=== PATIENT | female | born 1940 | race Caucasian/White ===

== ENCOUNTER 2019-07-04 22:25 | Emergency (ER) | payer MEDICARE, MEDICAID, SELFPAY ==
--- NOTE | ~2019-07-04 | XR_ITS ---
EXAMINATION: XR chest 2V DATE: 07/04/2019 23:23 INDICATION: Chronic cough and congestion TECHNIQUE: frontal and lateral views of the chest were obtained. COMPARISON: Chest radiograph dated 04/07/19 FINDINGS: Patient is rotated towards the right which exaggerates eventration of the anterior right hemidiaphrag m. The lungs remain clear with no focal airspace opacities, pulmonary edema, pleural effusion or pneu mothorax. Couple calcified nodules in the left lower lung zone and calcified left hilar lymph nodes c onsistent with old granulomatous disease. Mild cardiomegaly. Multiple chronic compression fractures i n the thoracic and upper lumbar spine with change of prior L1 vertebroplasty. IMPRESSION: 1. No acute cardiopulmonary disease. 2. Mild cardiomegaly. Reviewed, dictated and finalized at location A. T REPORTER
[2019-07-04 22:27] VITALS: BP 170/82; PULSE 73; RESP 18; TEMP 36.4; O2SAT 100
--- NOTE | 2019-07-04 22:31 | ED.URI ---
HPI - URI/Sore Throat General Chief Complaint: Upper Respiratory Infection Stated Complaint: acid reflux cough Time Seen by Provider: 07/04/19 22:30 Source: patient, family and RN notes reviewed Mode of arrival: EMS Limitations: no limitations History of Present Illness HPI Narrative: Pt is an 78 y/o female who presents to the ED, via EMS from [facility], with c/o acid reflux and a cough that began a few days ago. Per spouse, pt believes she is having a UTI. t states that she can feel acid coming up. Pt also reports chest heaviness pain, nausea, and an episode of vomiting that contained phlegm, but denies fever, chills, diaphoresis, abdominal pain, and diarrhea. Pt is taking ASA [address] [facility] MD elicited complaint: cough and other (acid reflux) Onset (ago): day(s) (few) Consistency: constant Associated symptoms: chest pain (heaviness), nausea and vomiting (an episode, contained phlegm) Related Data Home Medications Medication Instructions Recorded Confirmed Entresto 0.5 tablet PO BID 03/20/19 04/06/19 aspirin 81 mg PO DAILY 03/20/19 04/06/19 atorvastatin 10 mg PO DAILY 03/20/19 04/06/19 benzonatate 200 mg PO TID PRN 03/20/19 04/06/19 benztropine 0.5 mg PO DAILY 03/20/19 04/06/19 cetirizine 10 mg PO DAILY 03/20/19 04/06/19 cholecalciferol (vitamin D3) 50,000 unit PO WEEKLY 03/20/19 04/06/19 citalopram 15 mg DAILY 03/20/19 04/06/19 cyanocobalamin (vitamin B-12) 1,000 mcg PO DAILY 03/20/19 04/06/19 donepezil 10 mg PO HS 03/20/19 04/06/19 fludrocortisone 0.1 mg PO DAILY 03/20/19 04/06/19 furosemide 40 mg PO DAILY 03/20/19 04/06/19 lamotrigine 100 mg PO HS 03/20/19 04/06/19 magnesium oxide 400 mg PO DAILY 03/20/19 04/06/19 omeprazole 20 mg PO BID 03/20/19 04/06/19 polyethylene glycol 3350 [Miralax] 17 g PO DAILY 03/20/19 04/06/19 potassium chloride 20 meq PO BID 03/20/19 04/06/19 Allergies Allergy/AdvReac Type Severity Reaction Status Date / Time sertraline Allergy Severe Unknown Verified 04/06/19 14:59 hydromorphone Allergy Intermediate Unknown Verified 04/06/19 14:59 Review of Systems Review of Systems: All systems reviewed & are unremarkable except as noted in HPI and below Constitutional: Constitutional: Denies chills and Denies fever(s) Cardiovascular: Cardiovascular: Reports chest pain (heaviness) and Denies diaphoresis Respiratory: Respiratory: Reports cough Gastrointestinal: Gastrointestinal: Denies abdominal pain, Denies diarrhea, Reports nausea, Reports vomiting (one episode, contained phlegm) and Reports other (acid reflux) [facility] Past Medical History Medical History (Updated 07/05/19 @ 00:51 by Nicole Lr MD) Alzheimers disease Anxiety CHF (congestive heart failure) Systolic congestive heart failure with echocardiogram March 2019 demonstrating mild left ventricular enlargement, severe global left ventricular systolic dysfunction with EF of 30-35%, mild right ventricular systolic dysfunction, moderate left atrial enlargement, moderate mitral valve regurgitation, moderate pulmonary hypertension, elevated right atrial pressures Chronic anemia Dementia Depression DNR (do not resuscitate) Essential hypertension Frequent urinary tract infections With history of ESBL E coli infection March 2018 GERD (gastroesophageal reflux disease) History of CVA (cerebrovascular accident) History of TIAs Hyperlipidemia Orthostatic hypotension 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 Patient resides at [facility]. She has a state IDPA form on the [facility]
--- NOTE | 2019-07-04 22:39 | ECG_ITS ---
Measurements Intervals [place] Rate: 79 P: -18 [place]: 131 QRS: 5 QRSD: 139 T: 144 QT: 426 QTc: 490 Interpretive Statements SINUS RHYTHM LEFT BUNDLE BRANCH BLOCK BASELINE ARTIFACT- I, II, AVR, AVL, AVF ABNORMAL ECG Electronically Signed On 07-05-2019 7:08:56 ENGINE TESTER by Vladimir Sosa D.O.
[2019-07-04 22:50] VITALS: PULSE 74
[2019-07-04] MEDS: IPRATROPIUM BR 0.02% INH SOLN 0.5 MG/2.5 ML VIAL INHALATION (22:54)
[2019-07-04] MEDS: ALBUTEROL SULFATE NEB 2.5 MG/0.5 ML INH 5 MG INHALATION (22:54)
[2019-07-04 22:55] VITALS: PULSE 70; RESP 20
[2019-07-04 23:03] VITALS: PULSE 79; RESP 20
[2019-07-04 23:13] LABS: Basophils Percent Auto 0.8 % (0.2-1.2); Eosinophils Absolute Auto 0.3 K/mm3 (0-0.3); Eosinophils Percent Auto 5.9 % (0-4.4); Hematocrit 23.6 % (37.0-47.0); Hemoglobin 7.3 g/dL (12.0-15.0); Immature Granulocyte Absolute 0.01 K/mm3 (0.00-0.031); Immature Granulocyte Percent A 0.2 % (0-0.5); Lymphocytes Absolute Auto 2.47 K/mm3 (0.9-3.2); Lymphocytes Percent Auto 46.7 % (18.3-44.2); Mean Corpuscular HGB Conc 30.9 g/dl (32-36); Mean Corpuscular Hemoglobin 26.5 pg (26-34); Mean Corpuscular Volume 85.8 fl (80-100); Mean Platelet Volume 9.3 fl (7.4-10.4); Monocytes Absolute Auto 0.4 K/mm3 (0.1-0.6); Monocytes Percent Auto 8.1 % (2.6-8.5); Neutrophils Percent Auto 38.3 % (45.5-73.1); Platelet Count Result 270 k/mm3 (150-375); Red Blood Count 2.75 M/mm3 (4.2-5.4); Red Cell Distribution Width 15.5 % (11.5-14.5); White Blood Count 5.3 K/mm3 (4.5-10.0)
[2019-07-04] MEDS: MAG HYDROX/AL HYDROX/SIMETH 30 ML UDC PO (23:13)
[2019-07-04 23:34] LABS: Alanine Aminotransferase 17 U/L (4-35); Albumin Level 3.8 g/dL (3.5-5.1); Alkaline Phosphatase 77 U/L (38-126); Aspartate Amino Transferase 28 U/L (14-36); Bilirubin,Total 0.3 mg/dL (0.2-1.3); Blood Urea Nitrogen 16 mg/dL (7-17); Calcium 9.2 mg/dL (8.4-10.2); Carbon Dioxide 22 mmol/L (22-30); Chloride 103 mmol/L (98-107); Estimated CRCL calculation 46 ml/min; Estimated Glomerular Filt Rate > 60; Glucose 117 mg/dL (65-105); Potassium 4.3 mmol/L (3.4-5.0); Sodium 140 mmol/L (137-145)
[2019-07-04 23:46] LABS: NT Pro B Type Natriuretic Pept 457 PG/ML (5-100); Troponin I < 0.012 ng/mL (0.000-0.034)
[2019-07-04 23:50] LABS: Add Urine Microscopic? NO; Appearance Urine Clear (Clear); Bilirubin Urine Negative (Negative); Blood Urine Negative (Negative); Color Urine Colorless (Yellow); Glucose Urine UA Negative (Negative); Ketones Urine Negative (Negative); Leukocyte Esterase Ur Negative LEU/UL (Negative); Nitrate Urine Negative (Negative); Protein Urine Negative (Negative); Specific Grav Ur 1.006 (1.001-1.035); Urobilinogen Urine Negative mg/dL (<2.0)
[2019-07-04 23:59] VITALS: BP 130/51; PULSE 81; RESP 20; O2SAT 100
[2019-07-05] MEDS: PANTOPRAZOLE SODIUM IV 40 MG VIAL IV PUSH (00:47)
[2019-07-05 01:09] VITALS: BP 122/70; PULSE 78; RESP 18; O2SAT 99
[2019-07-05 02:11] LABS: Folic Acid 11.6 ng/mL (2.76->20)
== END 2019-07-05 01:12 ==
PROVIDERS: Emergency Provider Emergency Medicine; PCP Internal Medicine
DX: K21.9 Gastro-esophageal reflux disease without esophagitis (principal); D64.9 Anemia, unspecified; R05 Cough; I11.0 Hypertensive heart disease with heart failure; I50.20 Unspecified systolic (congestive) heart failure; I48.0 Paroxysmal atrial fibrillation; G30.9 Alzheimer's disease, unspecified; F02.80 Dementia in other diseases classified elsewhere, unspecified severity, without behavioral disturbance, psychotic disturbance, mood disturbance, and anxiety; Z86.73 Personal history of transient ischemic attack (TIA), and cerebral infarction without residual deficits; Z87.891 Personal history of nicotine dependence
CPT/HCPCS: 36415; 71046; 80053; 81003; 82607; 82746; 83880; 84484; 85025; 87804; 93005; 94640; 96374; 99284; A9270; C9113

== ENCOUNTER 2019-09-23 20:09 | Observation (INO) | payer MEDICARE, MEDICAID, SELFPAY ==
--- NOTE | ~2019-09-23 | CT_ITS ---
EXAMINATION: CT brain wo con INDICATION: Fall, possible head injury COMPARISON: 04/06/2019 TECHNIQUE: Standard unenhanced head CT. The dose-length product (DLP) was 605.33 mGy-cm. The mA was a djusted according to patient size. Iterative reconstruction technique was employed. FINDINGS: There is no acute intraparenchymal hemorrhage. No evidence of mass lesion. No evidence of a cute infarction. There are areas of prior infarction in the left frontal and parietal lobes as well a s the bilateral cerebellar hemispheres. There is moderate periventricular and subcortical hypodensity probably related to small vessel ischemic disease. There is moderate prominence of the sulci and jean-pierre tricles related to cerebral atrophy. Intracranial calcified cerebral atherosclerosis is noted. There are no extra-axial collections. There is no mass effect or midline shift. The orbits and soft tissues are unremarkable. The visualized sinuses and mastoid air cells are well aerated. IMPRESSION: 1. Areas of prior infarction without acute intracranial abnormality. 2. Age related findings. Reviewed, dictated and finalized at location A.
--- NOTE | ~2019-09-23 | CT_ITS ---
EXAMINATION: CT facial & cervical spine wo DATE: 09/23/2019 22:03 INDICATION: Facial and neck pain after fall TECHNIQUE: Computed tomography (CT) of the maxillofacial region and cervical spine was performed with out intravenous contrast. The dose-length product (DLP) was 150.37 mGy-cm. Automated exposure control and iterative reconstruction technique were employed. COMPARISON: 09/16/2018 FINDINGS: MAXILLOFACIAL CT: There is no acute facial bone fracture. The soft tissues are unremarkable. There is mild mucosal thic kening of the paranasal sinuses. CERVICAL SPINE CT: There are 2 mm of stable anterolisthesis of C3 on C4 and C4 on C5. There is chronic severe loss of in tervertebral disc space height at C4-5 and C5-6. Mild loss of disc space height is seen elsewhere in the cervical spine. The odontoid is intact. There is moderate to severe multilevel facet and uncovert ebral joint osteoarthritis. The prevertebral soft tissues are normal. IMPRESSION: 1. Moderate to severe cervical spondylosis without acute findings or significant interval change. 2. No facial bone fracture. Reviewed, dictated and finalized at location A. IMPRESSION: 1. Moderate to severe cervical spondylosis without acute findings or significan t interval change. 2. No facial bone fracture.
--- NOTE | ~2019-09-23 | XR_ITS ---
MODIFIED ESOPHAGRAM HISTORY: Dysphagia. TECHNIQUE: Modified barium esophagram was performed on 09/25/2019. I administered fluoroscopy and perf ormed the exam with speech pathologist. Patient was seated for lateral fluoroscopic imaging for john stion of thin liquids, pudding, solids and quantified amounts, followed by thin liquids in uncontroll ed amounts. This was recorded on tape. A single fluoroscopic spot image was also recorded. The DAP fo r this procedure was 1.34 Gycm2. The amount of fluoroscopy time used during this procedure was 2.1 mi nutes. FINDINGS: Oral stage: Adequate function. Pharyngeal stage: Adequate function. Cervical/esophageal stage: Adequate function. IMPRESSION: Patient tolerated regular consistency oral feedings in the upright position. Please rajni elate with speech pathologist findings and specific feeding recommendations. Reviewed, dictated and finalized at location A. IMPRESSION: Patient tolerated regular consistency oral feedings in the upright position. Please correlate with speech pathologist findings and specific feedi ng recommendations.
[2019-09-23 20:19] VITALS: BP 94/63; PULSE 73; RESP 25; TEMP 36.4; O2SAT 100
--- NOTE | 2019-09-23 20:24 | ECG_ITS ---
Measurements Intervals [place] Rate: 66 P: -13 [place]: 140 QRS: 41 QRSD: 148 T: 201 QT: 446 QTc: 468 Interpretive Statements SINUS RHYTHM LEFT BUNDLE BRANCH BLOCK BASELINE ARTIFACT- I, II, III, AVL, AVF ABNORMAL ECG Electronically Signed On 09-24-2019 7:06:20 CDT by Vladimir Sosa D.O.
--- NOTE | 2019-09-23 20:25 | ED.FALL ---
HPI - Fall General Chief Complaint: Fall Stated Complaint: fall/ jaw pain Time Seen by Provider: 09/23/19 20:14 Source: RN notes reviewed History of Present Illness HPI Narrative: Patient presents emergency department from home via EMS for fall. Patient states she was seen on the toilet when she fell forward and believes she had a syncopal episode. Patient states she believes she struck her head and her face and notes jaw pain since the fall. Patient denies any recent illness but does note some sinus drainage. Denies any fevers or chills chest pain shortness of breath or any other symptoms Related Data Home Medications Medication Instructions Recorded Confirmed Entresto 0.5 tablet PO BID 03/20/19 04/06/19 aspirin 81 mg PO DAILY 03/20/19 04/06/19 atorvastatin 10 mg PO DAILY 03/20/19 04/06/19 benztropine 0.5 mg PO DAILY 03/20/19 04/06/19 cetirizine 10 mg PO DAILY 03/20/19 04/06/19 cholecalciferol (vitamin D3) 50,000 unit PO WEEKLY 03/20/19 04/06/19 citalopram 15 mg DAILY 03/20/19 04/06/19 cyanocobalamin (vitamin B-12) 1,000 mcg PO DAILY 03/20/19 04/06/19 donepezil 10 mg PO HS 03/20/19 04/06/19 fludrocortisone 0.1 mg PO DAILY 03/20/19 04/06/19 furosemide 40 mg PO DAILY 03/20/19 04/06/19 lamotrigine 100 mg PO HS 03/20/19 04/06/19 magnesium oxide 400 mg PO DAILY 03/20/19 04/06/19 omeprazole 20 mg PO BID 03/20/19 04/06/19 polyethylene glycol 3350 [Miralax] 17 g PO DAILY 03/20/19 04/06/19 potassium chloride 20 meq PO BID 03/20/19 04/06/19 Allergies Allergy/AdvReac Type Severity Reaction Status Date / Time sertraline Allergy Severe Unknown Verified 04/06/19 14:59 hydromorphone Allergy Intermediate Unknown Verified 04/06/19 14:59 Review of Systems Review of Systems: Narrative: Gen.: Denies fevers or chills Eyes: Denies eye pain or visual change ENT: Reports congestion and jaw pain reports a possible syncopal episode Respiratory: Denies shortness of breath or cough CV: Denies chest pain or palpitations GI: Denies abdominal pain nausea, emesis or diarrhea Musculoskeletal: Denies back pain or muscle pain Neuro: Denies numbness, tingling, weakness or focal weakness Skin: Denies rash Except as documented, all other systems reviewed and negative [facility] Past Medical History Medical History Alzheimers disease Anxiety CHF (congestive heart failure) Systolic congestive heart failure with echocardiogram March 2019 demonstrating mild left ventricular enlargement, severe global left ventricular systolic dysfunction with EF of 30-35%, mild right ventricular systolic dysfunction, moderate left atrial enlargement, moderate mitral valve regurgitation, moderate pulmonary hypertension, elevated right atrial pressures Chronic anemia Dementia Depression DNR (do not resuscitate) Essential hypertension Frequent urinary tract infections With history of ESBL E coli infection March 2018 GERD (gastroesophageal reflux disease) History of CVA (cerebrovascular accident) History of TIAs Hyperlipidemia Orthostatic hypotension 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 Patient resides at [facility]. She has a state IDPA form on the chart and indicates her code status is DNR. Primary care physician is Dr. Charanjit Ace. Smoking packs per day: 2 Smoking cigarettes per day: 40.0 Years smoked: 10 Smoking pack-years: 20.00 Smoking status: Former smoker Tobacco type: cigarettes Smoking end date: 05/08/79 Additional smoking assessment comments: former husb
[2019-09-23 20:49] LABS: Basophils Percent Auto 0.4 % (0.2-1.2); Eosinophils Absolute Auto 0.3 K/mm3 (0-0.3); Eosinophils Percent Auto 4.3 % (0-4.4); Hemoglobin 13.3 g/dL (12.0-15.0); Immature Granulocyte Absolute 0.02 K/mm3 (0.00-0.031); Immature Granulocyte Percent A 0.3 % (0-0.5); Lymphocytes Absolute Auto 2.35 K/mm3 (0.9-3.2); Lymphocytes Percent Auto 30.4 % (18.3-44.2); Mean Corpuscular HGB Conc 32.4 g/dl (32-36); Mean Corpuscular Hemoglobin 30.7 pg (26-34); Mean Corpuscular Volume 94.7 fl (80-100); Mean Platelet Volume 9.2 fl (7.4-10.4); Monocytes Absolute Auto 0.4 K/mm3 (0.1-0.6); Monocytes Percent Auto 5.2 % (2.6-8.5); Neutrophils Absolute Auto 4.6 K/mm3 (1.3-6.7); Neutrophils Percent Auto 59.4 % (45.5-73.1); Platelet Count Result 238 k/mm3 (150-375); Red Blood Count 4.33 M/mm3 (4.2-5.4); Red Cell Distribution Width 16.4 % (11.5-14.5); White Blood Count 7.7 K/mm3 (4.5-10.0)
[2019-09-23 20:59] LABS: INR 0.9; Prothrombin Time 11.7 Seconds (11.1-14.7)
[2019-09-23 21:00] LABS: Partial Thromboplastin Time 25.9 SECONDS (22.3-36.8)
[2019-09-23 21:03] LABS: Alanine Aminotransferase 14 U/L (4-35); Albumin Level 4.5 g/dL (3.5-5.1); Alkaline Phosphatase 61 U/L (38-126); Aspartate Amino Transferase 26 U/L (14-36); Bilirubin,Total 0.4 mg/dL (0.2-1.3); Blood Urea Nitrogen 17 mg/dL (7-17); Calcium 9.8 mg/dL (8.4-10.2); Carbon Dioxide 28 mmol/L (22-30); Chloride 102 mmol/L (98-107); Estimated CRCL calculation 33 ml/min; Estimated Glomerular Filt Rate 53; Glucose 135 mg/dL (65-105); Potassium 3.5 mmol/L (3.4-5.0); Sodium 139 mmol/L (137-145)
[2019-09-23 21:14] LABS: Troponin I < 0.012 ng/mL (0.000-0.034)
[2019-09-23 21:20] VITALS: BP 127/67; BP 129/69; PULSE 73
[2019-09-23 21:22] VITALS: BP 108/69; PULSE 80
[2019-09-23] MEDS: SODIUM CHLORIDE 0.9% IV 1,000 ML 999 ML IV CONT (21:38)
[2019-09-23 21:42] VITALS: BP 143/67; PULSE 73; RESP 23; TEMP 36.5; O2SAT 100
[2019-09-23 22:40] LABS: Add Urine Microscopic? YES; Appearance Urine Clear (Clear); Bilirubin Urine Negative (Negative); Blood Urine Negative (Negative); Color Urine Yellow (Yellow); Glucose Urine UA Negative (Negative); Hyaline Casts Urine 30-49 /lpf; Ketones Urine Negative (Negative); Leukocyte Esterase Ur Negative LEU/UL (Negative); Mucus Urine Rare /lpf; Nitrate Urine Negative (Negative); Protein Urine 1+ mg/dL (Negative); RBC Urine 0-2 /hpf (0-2); Specific Grav Ur 1.017 (1.001-1.035); Squamous Epithelial Cell Urine Rare /hpf (Few); Urobilinogen Urine Negative mg/dL (<2.0); WBC Urine 0-3 /hpf
[2019-09-23 23:07] VITALS: BP 166/135; PULSE 66; RESP 21; TEMP 36.6; O2SAT 100
[2019-09-24] VITALS (14 sets, daily range): BP systolic 133–184; BP diastolic 53–96; PULSE 57–91; RESP 14–18; TEMP 36.1–36.9; O2SAT 99–100; BMI 25.7
--- NOTE | 2019-09-24 02:33 | ADMGEN ---
This patient, Kenton Wilhelm, was admitted to Medical Room 245. Patient/family oriented to hospital policies and general routines including ID bracelet, bed and alarms, visiting hours, pain management, procedures, bathroom and other care routines, personal items, smoking policy, room service/diet, and visiting hours. Valuables list has been completed. Information on how to activate the Rapid Response Team has been discussed. Patient/Family are encouraged to report perceived risks to care and to ask questions if they do not understand what they are told or what they should do.
[2019-09-24 03:25] LABS: Troponin I < 0.012 ng/mL (0.000-0.034)
[2019-09-24 09:34] LABS: Basophils Percent Auto 0.3 % (0.2-1.2); Eosinophils Absolute Auto 0.2 K/mm3 (0-0.3); Eosinophils Percent Auto 1.9 % (0-4.4); Hematocrit 36.2 % (37.0-47.0); Immature Granulocyte Absolute 0.02 K/mm3 (0.00-0.031); Immature Granulocyte Percent A 0.3 % (0-0.5); Lymphocytes Absolute Auto 2.06 K/mm3 (0.9-3.2); Lymphocytes Percent Auto 26.1 % (18.3-44.2); Mean Corpuscular HGB Conc 33.1 g/dl (32-36); Mean Corpuscular Hemoglobin 31.3 pg (26-34); Mean Corpuscular Volume 94.5 fl (80-100); Mean Platelet Volume 9.3 fl (7.4-10.4); Monocytes Absolute Auto 0.6 K/mm3 (0.1-0.6); Neutrophils Absolute Auto 5.1 K/mm3 (1.3-6.7); Neutrophils Percent Auto 64.4 % (45.5-73.1); Platelet Count Result 224 k/mm3 (150-375); Red Blood Count 3.83 M/mm3 (4.2-5.4); Red Cell Distribution Width 16.7 % (11.5-14.5); White Blood Count 7.9 K/mm3 (4.5-10.0)
[2019-09-24 09:46] LABS: Alanine Aminotransferase 13 U/L (4-35); Albumin Level 4.1 g/dL (3.5-5.1); Alkaline Phosphatase 54 U/L (38-126); Aspartate Amino Transferase 24 U/L (14-36); Bilirubin,Total 0.4 mg/dL (0.2-1.3); Blood Urea Nitrogen 15 mg/dL (7-17); Calcium 9.1 mg/dL (8.4-10.2); Carbon Dioxide 23 mmol/L (22-30); Chloride 108 mmol/L (98-107); Estimated CRCL calculation 40 ml/min; Estimated Glomerular Filt Rate > 60; Glucose 87 mg/dL (65-105); Magnesium 1.9 mg/dL (1.6-2.3); Phosphorus 3.6 mg/dL (2.5-4.5); Potassium 3.7 mmol/L (3.4-5.0); Sodium 139 mmol/L (137-145)
--- NOTE | 2019-09-24 10:37 | PM.IMHP ---
H&P: HPI History of Present Illness Chief complaint: Fall Narrative: Date of Service 09/24/19 1015 The supervising physician for this history and physical is Dr Carl Peterson. Ms. Wilhelm is an 78yo F with history of previous CVA, paroxysmal atrial fibrillation, orthostatic hypotension, chronic diastolic congestive heart failure, anxiety, schizoaffective disorder, and seizure disorder who presented to the ED from [facility] for evaluation after a fall. The patient recalls sitting on the toilet yesterday and tells me she began to feel ?sweaty and clammy . She felt like she was about to pass out but she is unsure whether not she lost consciousness. She tells me she did not hit her head and describes that she slid off the toilet on to her buttocks on the floor. She reports feeling back to her normal self today, other than feeling a bit tired. She denies any dizziness, chest pain, or shortness of breath at rest. She notes that she has some mild shortness of breath with walking which is not new for her. She denies any nausea, vomiting, blood in stool, constipation, or diarrhea. She notes that her stools are always dark due to taking iron supplements. She is noted to be clearing her throat frequently during my encounter and she tells me this is not new and that she has to take her time taking all for pills or she will have trouble swallowing them all. She does have some expressive aphasia which she recognizes, and tells me she has had trouble remembering and pronouncing words since her stroke 5 or 6 years ago. She tells me she has been working with restorative therapy at the [facility] and normally walks with a walker. CT brain shows areas of old infarction without any acute intracranial abnormalities, C-spine/facial CT with no acute fractures. Patient is admitted to observation for evaluation after a fall. Review of Systems Review of Systems: Narrative: Today the patient's only complaint is feeling a bit tired. Twelve systems were reviewed with pertinent positives and negatives as per HPI. Except as documented, all other systems were reviewed and are negative. [facility] Past Medical History Medical History (Updated 09/24/19 @ 12:10 by Char Mcginnis PA-C) Alzheimers disease Anxiety CHF (congestive heart failure) Echocardiogram March 2019 demonstrating mild left atrial enlargement, grade 1 diastolic dysfunction EF 60-65%; trace aortic, pulmonic, and tricuspid regurgitation. Chronic anemia Dementia Follows with neurologist, Dr. 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 Patient resides at [facility]. She has a state IDPA form on the chart and indicates her code status is DNR. She denies any alcohol or other substance use. Former smoker 1ppd cigarettes x 10 years and quit age 28. Primary care physician is Dr. Jorge Martinez. Smoking packs per day: 1 Smoking cigarettes per day: 20.0 Years smoked: 10 Smoking pack-years: 10.00 Smoking status: Former smoker Tobacco type: cigarettes S
[2019-09-24] MEDS: ASPIRIN 81 MG ENTERIC TABLET PO (10:44)
[2019-09-24] MEDS: BENZTROPINE MESYLATE 0.5 MG TABLET PO (10:44)
[2019-09-24] MEDS: SACUBITRIL/VALSARTAN 12-13 MG TABLET 1 TAB PO (10:44)
[2019-09-24] MEDS: polyethylene glycoL 3350 17 GM POWD.PACK PO (10:44)
[2019-09-24] MEDS: FERROUS GLUCONATE 324 MG TABLET PO (10:44)
[2019-09-24] MEDS: FLUDROCORTISONE ACETATE 0.1 MG TABLET PO (10:44)
[2019-09-24] MEDS: MAGNESIUM OXIDE 400 MG TABLET PO (10:44)
[2019-09-24] MEDS: ATORVASTATIN 5 MG TABLET 10 MG PO (10:45)
[2019-09-24] MEDS: POTASSIUM CHLORIDE 20 MEQ TABLET.ER PO ×2 (10:45→16:40)
[2019-09-24] MEDS: levETIRAcetam 250 MG TABLET PO ×2 (10:45→21:08)
[2019-09-24] MEDS: FUROSEMIDE 40 MG TABLET PO (10:46)
[2019-09-24] MEDS: CYANOCOBALAMIN 1,000 MCG TABLET 1000 MCG PO (10:46)
[2019-09-24] MEDS: CITALOPRAM HYDROBROMIDE 10 MG TABLET PO (10:46)
[2019-09-24] MEDS: CITALOPRAM HYDROBROMIDE 5 MG TABLET PO (10:46)
[2019-09-24] MEDS: FLUTICASONE PROPIONATE 0.05% NA SPR 16 GM BTL (*BKC) 1 SPRAY NASAL (10:46)
[2019-09-24] MEDS: ACETAMINOPHEN 325 MG TABLET 650 MG PO (14:09)
--- NOTE | 2019-09-24 16:28 | PCSTNOTE ---
Please refer to the Bedside Swallow Evaluation in the EMR.
[2019-09-24] MEDS: DONEPEZIL HCL 10 MG TABLET PO (21:08)
[2019-09-24] MEDS: lamoTRIgine 100 MG TABLET PO (21:09)
[2019-09-25] VITALS: PULSE 57
[2019-09-25 04:00] VITALS: PULSE 88
[2019-09-25 04:19] LABS: SARS-CoV-2 RNA PCR Negative
[2019-09-25 05:42] LABS: Basophils Percent Auto 0.4 % (0.2-1.2); Eosinophils Absolute Auto 0.4 K/mm3 (0-0.3); Eosinophils Percent Auto 6.7 % (0-4.4); Hematocrit 34.3 % (37.0-47.0); Hemoglobin 11.3 g/dL (12.0-15.0); Immature Granulocyte Absolute 0.01 K/mm3 (0.00-0.031); Immature Granulocyte Percent A 0.2 % (0-0.5); Lymphocytes Absolute Auto 2.31 K/mm3 (0.9-3.2); Lymphocytes Percent Auto 41.8 % (18.3-44.2); Mean Corpuscular HGB Conc 32.9 g/dl (32-36); Mean Corpuscular Hemoglobin 31.1 pg (26-34); Mean Corpuscular Volume 94.5 fl (80-100); Mean Platelet Volume 9.7 fl (7.4-10.4); Monocytes Absolute Auto 0.4 K/mm3 (0.1-0.6); Monocytes Percent Auto 7.6 % (2.6-8.5); Neutrophils Absolute Auto 2.4 K/mm3 (1.3-6.7); Neutrophils Percent Auto 43.3 % (45.5-73.1); Platelet Count Result 201 k/mm3 (150-375); Red Blood Count 3.63 M/mm3 (4.2-5.4); Red Cell Distribution Width 16.7 % (11.5-14.5); White Blood Count 5.5 K/mm3 (4.5-10.0)
[2019-09-25 05:47] VITALS: BP 168/78; PULSE 73; RESP 16; TEMP 36.3; O2SAT 97
[2019-09-25 05:50] LABS: Alanine Aminotransferase 12 U/L (4-35); Albumin Level 3.7 g/dL (3.5-5.1); Alkaline Phosphatase 51 U/L (38-126); Aspartate Amino Transferase 23 U/L (14-36); Bilirubin,Total 0.4 mg/dL (0.2-1.3); Blood Urea Nitrogen 13 mg/dL (7-17); Calcium 9.1 mg/dL (8.4-10.2); Carbon Dioxide 27 mmol/L (22-30); Chloride 107 mmol/L (98-107); Estimated CRCL calculation 46 ml/min; Estimated Glomerular Filt Rate > 60; Glucose 86 mg/dL (65-105); Potassium 4.2 mmol/L (3.4-5.0); Sodium 138 mmol/L (137-145)
[2019-09-25 08:00] VITALS: PULSE 65
[2019-09-25] MEDS: ATORVASTATIN 5 MG TABLET 10 MG PO (08:06)
[2019-09-25] MEDS: CYANOCOBALAMIN 1,000 MCG TABLET 1000 MCG PO (08:07)
[2019-09-25] MEDS: MAGNESIUM OXIDE 400 MG TABLET PO (08:07)
[2019-09-25] MEDS: ASPIRIN 81 MG ENTERIC TABLET PO (08:07)
[2019-09-25] MEDS: FLUDROCORTISONE ACETATE 0.1 MG TABLET PO (08:08)
[2019-09-25] MEDS: levETIRAcetam 250 MG TABLET PO (08:08)
[2019-09-25] MEDS: POTASSIUM CHLORIDE 20 MEQ TABLET.ER PO (08:08)
[2019-09-25] MEDS: CITALOPRAM HYDROBROMIDE 10 MG TABLET PO (08:08)
[2019-09-25] MEDS: BENZTROPINE MESYLATE 0.5 MG TABLET PO (08:09)
[2019-09-25] MEDS: FERROUS GLUCONATE 324 MG TABLET PO (08:09)
[2019-09-25] MEDS: FUROSEMIDE 40 MG TABLET PO (08:09)
[2019-09-25] MEDS: FLUTICASONE PROPIONATE 0.05% NA SPR 16 GM BTL (*BKC) 1 SPRAY NASAL (08:10)
[2019-09-25] MEDS: polyethylene glycoL 3350 17 GM POWD.PACK PO (08:10)
[2019-09-25] MEDS: CITALOPRAM HYDROBROMIDE 5 MG TABLET PO (08:11)
--- NOTE | 2019-09-25 10:33 | PM.DS ---
DS: Admitting Diagnosis Admitting Diagnosis Admitting Diagnosis: Syncope and collapse DS: Discharge Diagnosis Discharge Diagnosis (1) Syncope: Code(s): R55 - Syncope and collapse Status: Acute Assessment and Plan: Date of Service 09/25/19 Ms. Wilhelm is an 78yo F with history of previous CVAs, schizoeffective disorder, dementia, paroxysmal atrial fibrillation and seizure disorder who presented to the ED from [facility] after a fall. Patient describes that she was sitting on the toilet when she began to feel sweaty and clammy and she slid off the toilet onto the floor. Unclear whether or not she actually hit her head. CT brain demonstrated areas of old infarction without acute intracranial abnormalities. CT C spine and facial bones showed no acute fractures or other pathology. At time of my encounter, patient was feeling tired but otherwise offered no complaints. It was felt that her episode the day prior was mostly a result of a vasovagal response. 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 She continued to repetitively clear her throat with a slight dry cough. She noted this had been going on for months and attributed it to her sinuses. She was maintained on her home flonase. She described sometimes getting choked up on her pills so speech therapy evaluation was obtained. She underwent modified barium swallow and speech therapy noted that she did well with all consistencies without signs or symptoms of aspiration. She required COVID-19 testing in order to discharge back to the facility which was negative. She had been undergoing restorative therapy at the [facility] and PT/OT evals here suggest she would benefit from continuing therapy on her return. She uses a walker for ambulation and walked 200' contact guard with PT in the hallway. She was feeling well and hemodynamically stable for discharge 09/25/19 to be seen by alf provider within 1 week. Patient describes what sounds like a vasovagal episode on the toilet 09/23. She has had syncope in the past and also with a history of orthostatic hypotension. CT brain shows prior infarcts without acute intracranial abnormalities. Patient back at baseline today. Blood pressures stable. (2) Dementia: Qualifiers: Dementia type: unspecified type Dementia behavioral disturbance: without behavioral disturbance Qualified Code(s): F03.90 - Unspecified dementia without behavioral disturbance Code(s): F03.90 - Unspecified dementia without behavioral disturbance Status: Chronic Assessment and Plan: With history of prior CVA. Patient follows with neurologist, Dr. Galindo. Calm and cooperative today. Continue home medications. (3) Schizoaffective disorder: Qualifiers: Schizoaffective disorder type: unspecified Qualified Code(s): F25.9 - Schizoaffective disorder, unspecified Code(s): F25.9 - Schizoaffective disorder, unspecified Status: Chronic Assessment and Plan: Stable today, continue home medications. (4) Essential hypertension: Code(s): I10 - Essential (primary) hypertension Status: Chronic Assessment and Plan: Also with history of orthostatic hypotension on Florinef. BP stable, continue home Entresto. (5) Paroxysmal atrial fibrillation: Code(s): I48.0 - Paroxysmal atrial fibrillation Status: Chronic Assessment and Plan: Rate controlled. Continue home medications. (6) Seizure disorder: Code(s): G40.909 - Epilepsy, unspecified, not intractable, without status epilepticus Status: Chronic Assessment and Plan: Patient remains on home Kepp
--- NOTE | 2019-09-25 11:24 | PCSTNOTE ---
Please refer to the Modified Barium Swallow Evaluation in the EMR.
== END 2019-09-25 11:35 ==
LOC: ANHED 09-24 01:09 → ANH2MED 09-24 01:56
PROVIDERS: Admitting Provider Internal Medicine; Emergency Provider Emergency Medicine; Visit Provider Physician Assistant
DX: R55 Syncope and collapse (principal); Z20.828 Contact with and (suspected) exposure to other viral communicable diseases; D64.9 Anemia, unspecified; F25.9 Schizoaffective disorder, unspecified; F03.90 Unspecified dementia, unspecified severity, without behavioral disturbance, psychotic disturbance, mood disturbance, and anxiety; G40.909 Epilepsy, unspecified, not intractable, without status epilepticus; I11.0 Hypertensive heart disease with heart failure; I50.32 Chronic diastolic (congestive) heart failure; I69.320 Aphasia following cerebral infarction; I48.0 Paroxysmal atrial fibrillation; M47.812 Spondylosis without myelopathy or radiculopathy, cervical region; W18.11XA Fall from or off toilet without subsequent striking against object, initial encounter; Z66 Do not resuscitate; Z87.891 Personal history of nicotine dependence
CPT/HCPCS: 36415; 51701; 70450; 70486; 72125; 80053; 81001; 83735; 84100; 84484; 85025; 85610; 85730; 87081; 87635; 92610; 92611; 93005; 96360; 97161; 97165; 99285; A9270; C9803; G0378; J7030; U0003

== ENCOUNTER 2020-03-18 18:27 | Emergency (ER) | payer MEDICARE, MEDICAID, SELFPAY ==
[2020-03-18] VITALS (8 sets, daily range): BP systolic 136–170; BP diastolic 79–137; PULSE 52–68; RESP 10–41; TEMP 36.7; O2SAT 97–100
--- NOTE | ~2020-03-18 | XR_ITS ---
XR hip RT 2V w AP pelvis DATE: 03/18/2020 19:15 INDICATION: Fall. Bilateral hip pain, right greater than left TECHNIQUE: AP pelvis. AP and lateral views of right hip COMPARISON: 04/30/2008 AP pelvis FINDINGS: Diffuse osteopenia. Acute superior and inferior pubic ramus fractures are noted on the right. There is minimal displaceme nt. Normal alignment at the pubic symphysis and sacroiliac joints. No fracture or dislocation, avascular necrosis or bone destruction of the right hip. Status post left total hip arthroplasty. There is dextroscoliosis of the lumbar spine. Vertebroplasty at L1, probable fracture deformity/loss of height of L2. IMPRESSION: Acute right superior and inferior pubic ramus fractures Diffuse osteopenia Status post left total hip arthroplasty Reviewed, dictated and finalized at location A. MATIC STEEL TIE ADJUSTER
--- NOTE | ~2020-03-18 | CT_ITS ---
EXAMINATION: CTA chest PE protocol DATE: 03/18/2020 22:20 INDICATION: Shortness of breath. Elevated d-dimer. TECHNIQUE: Computed tomography angiography (CTA) of the chest was performed with 100 mL Omnipaque-350 intravenous contrast timed to evaluate the pulmonary arteries. Coronal maximum intensity projection 3D-reconstructions were created by the technologist. Automated exposure control and iterative reconst ruction technique were employed. Exam dose: 417.03 mGy-cm total exam DLP. COMPARISON: None. FINDINGS: There is moderate opacification the pulmonary arteries and no evidence of pulmonary embolis m involving the central, lobar or proximal segmental pulmonary arteries. More peripheral pulmonary ar teries are difficult to optimally evaluated due to motion and suboptimal contrast enhancement. There are scattered nonspecific patchy infiltrates in the right upper lobe, lingula and both lower lo bes. 4 mm nodule of the anterolateral middle lobe (series 4 image 56). No thoracic aortic aneurysm or dissection. Normal heart size. No pericardial or pleural effusion. No hilar or mediastinal mass lesion or lymphadenopathy. Moderate moderate sliding type hiatal hernia. Approximately 11 x 17 mm probable left adrenal adenoma. Osteoarthritic change at the glenohumeral joints. There is burst fracture deformity/vertebra plana and vertebroplasty change at L1. There are multiple compression fracture deformities of the thoracic spine. IMPRESSION: No evidence of central pulmonary embolus; peripheral pulmonary arteries are not optimall y evaluated due to motion and limited contrast enhancement Patchy bilateral pulmonary infiltrates involving right upper lobe, lingula and both lower lobes 4 mm middle lobe nodule Reviewed, dictated and finalized at [facility]. Reviewed, dictated and finalized at location A. ANALYST IMPRESSION: No evidence of central pulmonary embolus; peripheral pulmonary art eries are not optimally evaluated due to motion and limited contrast enhancemen t Patchy bilateral pulmonary infiltrates involving right upper lobe, lingula and both lower lobes 4 mm middle lobe nodule
--- NOTE | 2020-03-18 18:37 | ECG_ITS ---
Measurements Intervals [place] Rate: 53 P: 13 [place]: 155 QRS: 21 QRSD: 137 T: 82 QT: 525 QTc: 497 Interpretive Statements SINUS BRADYCARDIA LEFT BUNDLE BRANCH BLOCK ABNORMAL ECG Electronically Signed On 03-19-2020 14:32:09 AIRPORT TRAFFIC CONTROLLER by Vladimir Sosa D.O.
--- NOTE | 2020-03-18 18:41 | ED.SYNCOPE ---
HPI - Syncope General Chief Complaint: Fall Stated Complaint: FALL/SYNCOPE Time Seen by Provider: 03/18/20 18:35 Source: patient and EMS Mode of arrival: EMS Limitations: no limitations History of Present Illness HPI narrative: Patient is an 79-year-old female brought in by EMS due to a fall at the [place] [facility]. Patient complaining of right hip pain, moderate, nonradiating. Patient recently diagnosed with Covid infection and currently on Decadron. Patient denies any chest pain, shortness of breath, abdominal pain, back pain or any other extremity pain or injury. Related Data Home Medications Medication Instructions Recorded Confirmed aspirin 81 mg PO DAILY 03/20/19 09/24/19 atorvastatin 10 mg PO DAILY 03/20/19 09/24/19 benztropine 0.5 mg PO DAILY 03/20/19 09/24/19 cetirizine 10 mg PO DAILY 03/20/19 09/24/19 cholecalciferol (vitamin D3) 50,000 unit PO WEEKLY 03/20/19 09/24/19 citalopram 15 mg DAILY 03/20/19 09/24/19 cyanocobalamin (vitamin B-12) 1,000 mcg PO DAILY 03/20/19 09/24/19 donepezil 10 mg PO HS 03/20/19 09/24/19 fludrocortisone 0.1 mg PO DAILY 03/20/19 09/24/19 furosemide 40 mg PO DAILY 03/20/19 09/24/19 lamotrigine 100 mg PO HS 03/20/19 09/24/19 magnesium oxide 400 mg PO DAILY 03/20/19 09/24/19 omeprazole 20 mg PO BID 03/20/19 09/24/19 polyethylene glycol 3350 [Miralax] 17 g PO DAILY 03/20/19 09/24/19 potassium chloride 20 meq PO BID 03/20/19 09/24/19 Entresto 0.5 tablet PO BID 09/24/19 09/24/19 fluticasone propionate 1 spray INTRANASAL DAILY 09/24/19 09/24/19 levetiracetam [Keppra] 250 mg PO BID 09/24/19 09/24/19 Allergies Allergy/AdvReac Type Severity Reaction Status Date / Time sertraline Allergy Severe Unknown Verified 04/06/19 14:59 hydromorphone Allergy Intermediate Unknown Verified 04/06/19 14:59 Review of Systems Review of Systems: All systems reviewed & are unremarkable except as noted in HPI and below Constitutional: Constitutional: Denies body ache(s), Denies chills, Denies excessive sweating, Denies fatigue, Denies fever(s), Denies headache(s), Denies lethargy, Denies malaise, Denies weakness and Denies weight loss Eyes: Eyes: Denies blurry vision, Denies change in vision and Denies loss of vision ENT: Denies dizziness, Denies ear discharge, Denies headache(s), Denies lip swelling, Denies epistaxis, Denies nasal congestion, Denies neck pain, Denies throat swelling and Denies tongue swelling Cardiovascular: Cardiovascular: Denies chest pain, Denies chest pain at rest, Denies chest pain with activity, Denies diaphoresis, Denies rapid heart rate, Denies edema, Denies irregular heart rhythm, Denies lightheadedness, Denies palpitations, Denies dyspnea and Denies dyspnea on exertion Respiratory: Respiratory: Denies chest congestion, Denies cough, Denies hemoptysis, Denies dyspnea and Denies dyspnea on exertion Gastrointestinal: Gastrointestinal: Denies abdominal pain, Denies melena, Denies hematochezia, Denies diarrhea, Denies nausea, Denies vomiting and Denies hematemesis Musculoskeletal: Musculoskeletal: Denies deformity, Denies joint swelling, Denies limited range of motion, Denies neck pain and Denies numbness Neurologic: Denies Abnormal speech present, Denies confusion, Denies dizziness, Denies headache(s), Denies focal weakness, Denies loss of vision, Denies numbness, Denies Other visual disturbances, Denies Sensory deficit (Neuro) and Denies weakness Psychiatric: Psychiatric: Denies confusion, Denies depression, Denies auditory hallucinations, Denies homicidal ideation and Denies suicidal ideation Endocrine: Endocrine: Denies cold intolerance, Denies excessive sweating, Denies fatigue, Denies heat intolerance and Denies palpitations Hematologic/Lymphatic: Hematologic/Lymphatic: Denies easy bleeding and Denies easy bruising Allergic/Immunologic: Allergic/Immunologic: Denies lip swelling, Denies throat swelling and Denies tongue swelling PMF Past Medical History Medical History (Updated 03/19/20 @ 00:1
[2020-03-18 19:33] LABS: Basophils Percent Auto 0.3 % (0.2-1.2); Eosinophils Absolute Auto 0.1 K/mm3 (0-0.3); Eosinophils Percent Auto 0.3 % (0-4.4); Hematocrit 38.2 % (37.0-47.0); Hemoglobin 13.3 g/dL (12.0-15.0); Immature Granulocyte Absolute 0.22 K/mm3 (0.00-0.031); Immature Granulocyte Percent A 1.5 % (0-0.5); Lymphocytes Absolute Auto 1.06 K/mm3 (0.9-3.2); Lymphocytes Percent Auto 7.1 % (18.3-44.2); Mean Corpuscular HGB Conc 34.8 g/dl (32-36); Mean Corpuscular Hemoglobin 33.3 pg (26-34); Mean Corpuscular Volume 95.5 fl (80-100); Mean Platelet Volume 9.7 fl (7.4-10.4); Monocytes Absolute Auto 0.7 K/mm3 (0.1-0.6); Neutrophils Absolute Auto 12.8 K/mm3 (1.3-6.7); Neutrophils Percent Auto 85.8 % (45.5-73.1); Platelet Count Result 285 k/mm3 (150-375); Red Cell Distribution Width 11.9 % (11.5-14.5); White Blood Count 14.9 K/mm3 (4.5-10.0)
[2020-03-18 19:37] LABS: Prothrombin Time 13.9 Seconds (11.1-14.7)
[2020-03-18 19:52] LABS: Alanine Aminotransferase 19 U/L (4-35); Alkaline Phosphatase 70 U/L (38-126); Anion Gap 11 mmol/L (8-16); Aspartate Amino Transferase 39 U/L (14-36); Bilirubin,Total 0.7 mg/dL (0.2-1.3); Blood Urea Nitrogen 21 mg/dL (7-17); Calcium 9.5 mg/dL (8.4-10.2); Carbon Dioxide 25 mmol/L (22-30); Chloride 96 mmol/L (98-107); Estimated CRCL calculation 29 ml/min; Estimated Glomerular Filt Rate 48; Glucose 130 mg/dL (65-105); Potassium 4.3 mmol/L (3.4-5.0); Sodium 132 mmol/L (137-145)
[2020-03-18 20:03] LABS: Troponin I < 0.012 ng/mL (0.000-0.034)
[2020-03-18 20:27] LABS: D Dimer > 20.00 ug/mL (<0.48)
[2020-03-18 21:20] LABS: Add Urine Microscopic? NO; Appearance Urine Clear (Clear); Bilirubin Urine Negative (Negative); Blood Urine Negative (Negative); Color Urine Straw (Yellow); Glucose Urine UA Negative (Negative); Ketones Urine Negative (Negative); Leukocyte Esterase Ur Negative LEU/UL (Negative); Nitrate Urine Negative (Negative); Protein Urine Negative (Negative); Urobilinogen Urine Negative mg/dL (<2.0)
--- NOTE | 2020-03-18 23:07 | PC.NURSE ---
GAETANO Naranjo would like an update on pt. [phone]
--- NOTE | 2020-03-18 23:20 | PC.NURSE ---
Report to Jimbo FRITZ
[2020-03-19] VITALS (8 sets, daily range): BP systolic 114–176; BP diastolic 44–75; PULSE 51–73; RESP 15–18; O2SAT 97–98
[2020-03-19] MEDS: HYDROcodone/acetaminophen (*CRX) 5-325 MG TABLET 1 TAB PO (00:33)
--- NOTE | 2020-03-19 00:42 | PC.NURSE ---
called [facility] to transport patient. ETA [phone]
--- NOTE | 2020-03-19 00:46 | PC.NURSE ---
Report called to Melody at [facility]
--- NOTE | 2020-03-19 01:15 | PC.NURSE ---
Patient appears to be resting comfortably unless repositioned reports 8/10 after talking to her. Generally she just says its a 10 unless scale is explained several times
--- NOTE | 2020-03-19 02:20 | PC.NURSE ---
called [facility] for ETA update. ETA 20 - 30 minutes.
--- NOTE | 2020-03-19 03:13 | PC.NURSE ---
called [facility] to get ETA update. ETA [phone]
--- NOTE | 2020-03-19 03:23 | PC.NURSE ---
called [facility] to request transport. earliest they could transport will be after 5am.
--- NOTE | 2020-03-19 03:24 | PC.NURSE ---
called [facility] to request transport. decline due to being short on trucks
--- NOTE | 2020-03-19 04:12 | PC.NURSE ---
[facility] ETA [phone]. Called [facility] to transport . ETA [phone]
--- NOTE | 2020-03-19 05:24 | PC.NURSE ---
called [facility] to transport patient at [phone]. ETA [phone]. Cancelled [facility] at [phone]
--- NOTE | 2020-03-19 07:03 | PC.NURSE ---
[facility] called and cancelled transport due to staffing.
--- NOTE | 2020-03-19 07:07 | PC.NURSE ---
called [facility] to request transport. ETA [phone]
== END 2020-03-19 07:46 ==
PROVIDERS: Emergency Provider Emergency Medicine
DX: S32.591A Other specified fracture of right pubis, initial encounter for closed fracture (principal); U07.1 COVID-19; J12.89 Other viral pneumonia; M85.88 Other specified disorders of bone density and structure, other site; Z96.641 Presence of right artificial hip joint; R00.1 Bradycardia, unspecified; D64.9 Anemia, unspecified; I44.7 Left bundle-branch block, unspecified; Z79.82 Long term (current) use of aspirin; G30.9 Alzheimer's disease, unspecified; F02.80 Dementia in other diseases classified elsewhere, unspecified severity, without behavioral disturbance, psychotic disturbance, mood disturbance, and anxiety; Z66 Do not resuscitate; Z87.440 Personal history of urinary (tract) infections; K21.9 Gastro-esophageal reflux disease without esophagitis; I50.9 Heart failure, unspecified; I11.0 Hypertensive heart disease with heart failure; E78.5 Hyperlipidemia, unspecified; Z86.73 Personal history of transient ischemic attack (TIA), and cerebral infarction without residual deficits; M81.0 Age-related osteoporosis without current pathological fracture; I48.0 Paroxysmal atrial fibrillation; E55.9 Vitamin D deficiency, unspecified; G40.909 Epilepsy, unspecified, not intractable, without status epilepticus; F20.9 Schizophrenia, unspecified; F41.9 Anxiety disorder, unspecified; F32.9 Major depressive disorder, single episode, unspecified; W19.XXXA Unspecified fall, initial encounter
CPT/HCPCS: 36415; 71275; 73502; 80053; 81003; 83605; 84484; 85025; 85380; 85610; 85730; 93005; 96365; 99284; A9270; J0131; Q9967

== ENCOUNTER 2021-07-15 23:07 | Inpatient (IN) | payer MEDICARE, MEDICAID, SELFPAY ==
--- NOTE | ~2021-07-15 | XR_ITS ---
EXAMINATION: XR hip RT 2V w AP pelvis DATE: 07/16/2021 00:13 INDICATION: Right knee pain. Trauma. TECHNIQUE: An anteroposterior view of the pelvis and 2 views of right hip were obtained. COMPARISON: Pelvis and right hip radiographs 03/18/2020 FINDINGS: There is a total left hip arthroplasty in near-anatomic alignment. There are old healed fra cture deformities of right superior and inferior pubic rami. No acute fracture. There is mild right h ip osteoarthritis. There is moderate lumbar spondylosis. IMPRESSION: 1. Mild right hip osteoarthritis. 2. Total left hip arthroplasty in near-anatomic alignment. Reviewed, dictated and finalized at location A. ATION AND TRAINING MANAGER
--- NOTE | ~2021-07-15 | CT_ITS ---
EXAMINATION: CT abdomen pelvis w con DATE: 07/16/2021 00:13 INDICATION: Abdominal pain. Nausea and vomiting. Diarrhea. TECHNIQUE: Computed tomography (CT) of the abdomen and pelvis was performed with 100 mL Omnipaque 350 intravenous contrast. Automated exposure control and iterative reconstruction technique were employe d. The dose-length product was 627.36 mGy-cm. COMPARISON: Chest CT 03/18/2020 FINDINGS: The visualized portions of the lung bases demonstrate mild atelectasis. No pleural effusion . The heart size is normal. There are coronary artery calcifications. No pericardial effusion. There is a moderate-sized sliding hiatal hernia. There is wall thickening of the distal esophagus. The live r and gallbladder are normal. Calcifications in the spleen are consistent with old granulomatous dise ase. The pancreas and right adrenal gland are normal. There is a 2.1 cm mass in left adrenal gland me asuring soft tissue attenuation without change, likely an adenoma. There is cortical thinning of the kidneys. There are cysts in the kidneys measuring up to 1.6 cm on the left. There is diverticulosis o f the colon without evidence of diverticulitis. There are no dilated loops of bowel. The appendix is normal. There are no pathologically enlarged lymph nodes. There is no free intraperitoneal fluid. The re are old healed fractures of right superior and inferior pubic rami. There is a total left hip arth roplasty. There are multiple chronic vertebral body fractures. There are changes of vertebroplasty at L1. IMPRESSION: 1. Wall thickening of distal esophagus, consistent with esophagitis. 2. Moderate-sized sliding hiatal hernia. Reviewed, dictated and finalized at location A. RAMMABLE LOGIC CONTROLLER ASSEMBLER
[2021-07-15 23:23] VITALS: BP 110/60; PULSE 116; RESP 19; TEMP 37.2; O2SAT 96
--- NOTE | 2021-07-15 23:30 | ECG_ITS ---
Measurements Intervals [place] Rate: 117 P: -8 ND: 140 QRS: -2 QRSD: 126 T: 123 QT: 333 QTc: 466 Interpretive Statements SINUS TACHYCARDIA LEFT BUNDLE BRANCH BLOCK ABNORMAL ECG COMPARED TO ECG 03/18/2020 19:37:50 SINUS TACHYCARDIA NOW PRESENT Electronically Signed On 07-16-2021 7:14:05 MANAGER [employer]NAGEMENT by Kaden Donahue M.D.
--- NOTE | 2021-07-15 23:32 | ED.GENADULT ---
HPI - General Adult General Chief complaint: Nausea/Vomiting/Diarrhea Stated complaint: N/V 36 HRS, CHEST PAIN Time Seen by Provider: 07/15/21 23:26 Source: RN notes reviewed History of Present Illness HPI narrative: Patient presents emergency department from [facility] via EMS for abdominal pain. Patient states she has been having abdominal pain diffusely throughout the abdomen described as cramping associated with nausea and vomiting that began yesterday morning she states she has had a few episodes of loose bowel movements as well denies any fevers or chills chest pain shortness of breath or any other symptoms Related Data Home Medications Medication Instructions Recorded Confirmed aspirin 81 mg PO DAILY 03/20/19 09/24/19 atorvastatin 10 mg PO DAILY 03/20/19 09/24/19 benztropine 0.5 mg PO DAILY 03/20/19 09/24/19 cetirizine 10 mg PO DAILY 03/20/19 09/24/19 cholecalciferol (vitamin D3) 50,000 unit PO WEEKLY 03/20/19 09/24/19 citalopram 15 mg DAILY 03/20/19 09/24/19 cyanocobalamin (vitamin B-12) 1,000 mcg PO DAILY 03/20/19 09/24/19 donepezil 10 mg PO HS 03/20/19 09/24/19 fludrocortisone 0.1 mg PO DAILY 03/20/19 09/24/19 furosemide 40 mg PO DAILY 03/20/19 09/24/19 lamotrigine 100 mg PO HS 03/20/19 09/24/19 magnesium oxide 400 mg PO DAILY 03/20/19 09/24/19 omeprazole 20 mg PO BID 03/20/19 09/24/19 polyethylene glycol 3350 [Miralax] 17 g PO DAILY 03/20/19 09/24/19 potassium chloride 20 meq PO BID 03/20/19 09/24/19 Entresto 0.5 tablet PO BID 09/24/19 09/24/19 fluticasone propionate 1 spray INTRANASAL DAILY 09/24/19 09/24/19 levetiracetam [Keppra] 250 mg PO BID 09/24/19 09/24/19 Allergies Allergy/AdvReac Type Severity Reaction Status Date / Time sertraline Allergy Severe Unknown Verified 06/24/21 09:28 hydromorphone Allergy Intermediate Unknown Verified 06/24/21 09:28 Review of Systems Review of Systems: Gen.: Denies fevers or chills ENT: Denies congestion Respiratory: Denies shortness of breath or cough CV: Denies chest pain or palpitations GI: See HPI denies burning, urgency, frequency or hematuria Musculoskeletal: Denies back pain or muscle pain Neuro: Denies numbness, tingling, weakness or focal weakness Skin: Denies rash Except as documented, all other systems reviewed and negative [facility] Past Medical History Medical History Alzheimers disease Anxiety CHF (congestive heart failure) Echocardiogram March 2019 demonstrating mild left atrial enlargement, grade 1 diastolic dysfunction EF 60-65%; trace aortic, pulmonic, and tricuspid regurgitation. Chronic anemia Dementia Follows with neurologist, Dr. 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 Patient resides at [facility]. She has a state IDPA form on the chart and indicates her code status is DNR. She denies any alcohol or other substance use. Former smoker 1ppd cigarettes x 10 years and quit age 28. Primary care physician is Dr. Jorge Martinez. Smoking packs per day: 1 Smoking cigarettes per day: 20.
[2021-07-15 23:43] LABS: Basophils Percent Auto 0.2 % (0.2-1.2); Hemoglobin 9.7 g/dL (12.0-15.0); Immature Granulocyte Absolute 0.08 K/mm3 (0.00-0.031); Immature Granulocyte Percent A 0.9 % (0-0.5); Lymphocytes Absolute Auto 1.83 K/mm3 (0.9-3.2); Lymphocytes Percent Auto 21.1 % (18.3-44.2); Mean Corpuscular HGB Conc 32.3 g/dl (32-36); Mean Corpuscular Hemoglobin 34.2 pg (26-34); Mean Corpuscular Volume 105.6 fl (80-100); Mean Platelet Volume 9.7 fl (7.4-10.4); Monocytes Absolute Auto 0.4 K/mm3 (0.1-0.6); Monocytes Percent Auto 4.3 % (2.6-8.5); Neutrophils Absolute Auto 6.4 K/mm3 (1.3-6.7); Neutrophils Percent Auto 73.5 % (45.5-73.1); Platelet Count Result 292 k/mm3 (150-375); Red Blood Count 2.84 M/mm3 (4.2-5.4); Red Cell Distribution Width 13.4 % (11.5-14.5); White Blood Count 8.7 K/mm3 (4.5-10.0)
[2021-07-15 23:53] LABS: Alanine Aminotransferase 39 U/L (4-35); Albumin Level 3.5 g/dL (3.5-5.1); Alkaline Phosphatase 57 U/L (38-126); Anion Gap 6 mmol/L (8-16); Aspartate Amino Transferase 59 U/L (14-36); Bilirubin,Total 0.5 mg/dL (0.2-1.3); Blood Urea Nitrogen 64 mg/dL (7-17); Calcium 8.1 mg/dL (8.4-10.2); Carbon Dioxide 27 mmol/L (22-30); Chloride 100 mmol/L (98-107); Estimated CRCL calculation 29 ml/min; Estimated Glomerular Filt Rate 48; Glucose 104 mg/dL (65-110); Lipase 123 U/L (23-300); Potassium 4.8 mmol/L (3.4-5.0); Sodium 133 mmol/L (137-145)
[2021-07-16] VITALS (17 sets, daily range): BP systolic 101–124; BP diastolic 35–79; PULSE 77–107; RESP 16–22; TEMP 35.8–37.2; O2SAT 96–99; BMI 26.9
[2021-07-16] MEDS: SODIUM CHLORIDE 0.9% IV 1,000 ML 999 ML IV CONT (00:15)
[2021-07-16 00:22] LABS: Lactic Acid Reflex 2.2 mmol/L (0.7-2.1)
[2021-07-16 00:48] LABS: Add Urine Microscopic? YES; Appearance Urine Clear (Clear); Bacteria Urine Trace /hpf; Bilirubin Urine Negative (Negative); Blood Urine 1+ (Negative); Color Urine Yellow (Yellow); Glucose Urine UA Negative (Negative); Ketones Urine Negative (Negative); Leukocyte Esterase Ur Negative LEU/UL (Negative); Mucus Urine Few /lpf; Nitrate Urine Negative (Negative); Protein Urine Negative (Negative); RBC Urine 0-2 /hpf (0-2); Specific Grav Ur 1.025 (1.001-1.035); Urobilinogen Urine Negative mg/dL (<2.0); WBC Urine 0-3 /hpf
[2021-07-16] MEDS: PANTOPRAZOLE SODIUM IV 40 MG VIAL IV PUSH (01:19)
[2021-07-16] MEDS: SODIUM CHLORIDE 0.9% IV 500 ML 999 ML IV CONT (01:21)
[2021-07-16 01:32] LABS: INR 1.5; Prothrombin Time 17.9 Seconds (11.1-14.7)
[2021-07-16 02:06] LABS: Partial Thromboplastin Time 34.8 SECONDS (22.3-36.8)
[2021-07-16 03:00] LABS: Reflex Lactic Acid Yes or No Add Lactic
--- NOTE | 2021-07-16 03:16 | ADMGEN ---
This patient, Kenton Wilhelm, was admitted to 2 Medical Room 260-. Patient/family oriented to hospital policies and general routines including ID bracelet, bed and alarms, visiting hours, pain management, procedures, bathroom and other care routines, personal items, smoking policy, room service/diet, and visiting hours. Information on how to activate the Rapid Response Team has been discussed. Patient/Family are encouraged to report perceived risks to care and to ask questions if they do not understand what they are told or what they should do.
[2021-07-16] MEDS: SODIUM CHLORIDE 0.9% IV 1,000 ML 180 ML IV CONT (03:49)
[2021-07-16 03:50] LABS: Lactic Acid 2.5 mmol/L (0.7-2.1)
--- NOTE | 2021-07-16 07:24 | WPDGICN ---
Assessment and Plan Assessment and plan (1) Anemia: Code(s): D64.9 - Anemia, unspecified Status: Acute Assessment and Plan: initial hemoglobin 9.7, repeat is pending She cannot recall if she has ever had a colonoscopy. (2) GI bleed: Code(s): K92.2 - Gastrointestinal hemorrhage, unspecified Status: Acute Assessment and Plan: she has been started on pantoprazole. She is NPO. I told her that we will schedule her for an EGD to be done today. We discussed the procedure, use of sedation, the risks such as bleeding or perforation or cardiopulmonary complications (3) Nausea and vomiting: Code(s): R11.2 - Nausea with vomiting, unspecified Status: Acute Assessment and Plan: I suspect this is related to her melena and suggests the possibility of peptic ulcer disease. (4) Abdominal pain: Code(s): R10.9 - Unspecified abdominal pain Status: Acute Assessment and Plan: By location in epigastric area this suggests upper gastrointestinal disease. (5) Paroxysmal atrial fibrillation: Code(s): I48.0 - Paroxysmal atrial fibrillation Status: Chronic Assessment and Plan: the ER physician denied that she had any recent to be anticoagulated but she is clearly on Xarelto or at least has been on it for a diagnosis of atrial fibrillation. EKG reveals sinus tachycardia on bundle branch block but no atrial fibrillation or flutter GI Consult Note Consult date/time: 07/16/21 07:24 HPI: Kenotn Wilhelm is a 80 year old female who presented to the emergency room last evening with nausea black stools and was found to have a hemoglobin of 9.7. She states that she developed abdominal pain somewhat generalized, as well as nausea vomiting about 24 hours prior to her admission. She denies use of NSAIDs but this zakia ing aspirin. The emergency room physician states that she was not on any anticoagulant but Xarelto was listed as 1 of her medications. she denies any symptoms prior to last few days such as dysphagia or heartburn loss of appetite or weight loss. She denies any recent change in bowel habits . Review of Systems Review of Systems: All systems reviewed & are unremarkable except as noted in HPI and below PMFSH Past Medical History Medical History Alzheimers disease Anxiety CHF (congestive heart failure) Echocardiogram March 2019 demonstrating mild left atrial enlargement, grade 1 diastolic dysfunction EF 60-65%; trace aortic, pulmonic, and tricuspid regurgitation. Dementia Follows with neurologist, Dr. 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 Patient resides at [facility]. She has a state IDPA form on the chart and indicates her code status is DNR. She denies any alcohol or other substance use. Former smoker 1ppd cigarettes x 10 years and quit age 28. Primary care physician is Dr. Jorge Martinez. Smoking packs per day: 1 Smoking cigarettes per day: 20.0 Years smoked:
--- NOTE | 2021-07-16 08:42 | PM.IMCN ---
HPI Data of Consult Consult date: 07/16/21 Requesting Physician: Magaly Bermudez DO Primary Care Provider: Pavan Martinez Consult Narrative Narrative: Kenton Wilhelm is a 80 year old female with past medical history of Alzheimer's, CHF, chronic anemia, hypertension, seizures, schizoaffective disorder, AFib PMFSH Past Medical History Medical History Alzheimers disease Anxiety CHF (congestive heart failure) Echocardiogram March 2019 demonstrating mild left atrial enlargement, grade 1 diastolic dysfunction EF 60-65%; trace aortic, pulmonic, and tricuspid regurgitation. Chronic anemia Dementia Follows with neurologist, Dr. 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 Patient resides at [facility]. She has a state IDPA form on the chart and indicates her code status is DNR. She denies any alcohol or other substance use. Former smoker 1ppd cigarettes x 10 years and quit age 28. Primary care physician is Dr. Jorge Martinez. Smoking packs per day: 1 Smoking cigarettes per day: 20.0 Years smoked: 10 Smoking pack-years: 10.00 Smoking status: Former smoker Tobacco type: cigarettes Smoking end date: 05/08/79 Alcohol intake: never Substance use: never Substance use type: does not use Gender identity (if verbalized by the patient): Female 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: No Agree to blood products: Yes Meds Home Medications and Allergies Home Medications Medication Instructions Recorded Confirmed Type aspirin 81 mg PO DAILY 03/20/19 07/16/21 History atorvastatin 10 mg PO DAILY 03/20/19 07/16/21 History cholecalciferol (vitamin D3) 50,000 unit PO WEEKLY 03/20/19 07/16/21 History cyanocobalamin (vitamin B-12) 1,000 mcg PO DAILY 03/20/19 07/16/21 History donepezil 10 mg PO HS 03/20/19 07/16/21 History fludrocortisone 0.1 mg PO DAILY 03/20/19 07/16/21 History furosemide 20 mg PO DAILY 03/20/19 07/16/21 History magnesium oxide 400 mg PO DAILY 03/20/19 07/16/21 History polyethylene glycol 3350 [Miralax] 17 g PO DAILY 03/20/19 07/16/21 History potassium chloride 20 meq PO BID 03/20/19 07/16/21 History Chest Congestion (guaifenesin) 100 mg PO DAILY PRN 07/16/21 07/16/21 History acetaminophen 325 mg PO Q4-6H PRN 07/16/21 07/16/21 History aripiprazole [Abilify] 2 mg PO DAILY 07/16/21 07/16/21 History dexamethasone 6 mg PO DAILY 07/16/21 07/16/21 History docusate sodium [Colace] 100 mg PO DAILY 07/16/21 07/16/21 History duloxetine 60 mg PO DAILY 07/16/21 07/16/21 History famotidine 20 mg PO DAILY 07/16/21 07/16/21 History ferrous sulfate 325 mg PO DAILY 07/16/21 07/16/21 History lamotrigine 100 mg PO DAILY 07/16/21 07/16/21 History levetiracetam [Keppra] 250 mg PO BID 07/16/21 07/16/21 History loratadine [Allergy Relief 10 mg PO DAILY 07/16/21 07/16/21 History (loratadine)] melatonin 3 mg PO HS 07/16/21 07/16/21 History pantoprazole 40 mg PO QAM 07/16/21 07/16/21 History rivaroxaban [Xarelto] 20 mg PO DAILY 07/16/21 07/16/21 History Allergi
[2021-07-16] MEDS: LACTATED RINGERS 1,000 ML 150 ML IV CONT (10:55)
--- NOTE | 2021-07-16 10:59 | WPDANESEPPF ---
Anes - Initial Pre Proc Eval Procedure: Operation Date: 07/16/21 13:30 Proposed Procedures p Esophagogastroduodenoscopy - Festus Peacock MD Date/Time: 07/16/21 10:59 Surgeon: Magaly Bermudez DO Pre Op Diagnosis: GI bleed, Anemia, Acute Renal Insufficiency Patient Data Age: 80 Gender: F Height: 1.6 m Weight: 68.8 kg Last Vital Signs Temp 97.3 F L 07/16/21 10:46 Pulse 95 07/16/21 10:46 Resp 16 07/16/21 10:46 BP 101/53 L 07/16/21 10:46 Pulse Ox 97 07/16/21 10:46 Allergies Allergy/AdvReac Type Severity Reaction Status Date / Time sertraline Allergy Severe Unknown Verified 07/16/21 10:42 hydromorphone Allergy Intermediate Unknown Verified 07/16/21 10:42 Home Medications Medication Instructions Recorded Confirmed Type aspirin 81 mg PO DAILY 03/20/19 07/16/21 History atorvastatin 10 mg PO DAILY 03/20/19 07/16/21 History cholecalciferol (vitamin D3) 50,000 unit PO WEEKLY 03/20/19 07/16/21 History cyanocobalamin (vitamin B-12) 1,000 mcg PO DAILY 03/20/19 07/16/21 History donepezil 10 mg PO HS 03/20/19 07/16/21 History fludrocortisone 0.1 mg PO DAILY 03/20/19 07/16/21 History furosemide 20 mg PO DAILY 03/20/19 07/16/21 History magnesium oxide 400 mg PO DAILY 03/20/19 07/16/21 History polyethylene glycol 3350 [Miralax] 17 g PO DAILY 03/20/19 07/16/21 History potassium chloride 20 meq PO BID 03/20/19 07/16/21 History Chest Congestion (guaifenesin) 100 mg PO DAILY PRN 07/16/21 07/16/21 History acetaminophen 325 mg PO Q4-6H PRN 07/16/21 07/16/21 History aripiprazole [Abilify] 2 mg PO DAILY 07/16/21 07/16/21 History dexamethasone 6 mg PO DAILY 07/16/21 07/16/21 History docusate sodium [Colace] 100 mg PO DAILY 07/16/21 07/16/21 History duloxetine 60 mg PO DAILY 07/16/21 07/16/21 History famotidine 20 mg PO DAILY 07/16/21 07/16/21 History ferrous sulfate 325 mg PO DAILY 07/16/21 07/16/21 History lamotrigine 100 mg PO DAILY 07/16/21 07/16/21 History levetiracetam [Keppra] 250 mg PO BID 07/16/21 07/16/21 History loratadine [Allergy Relief 10 mg PO DAILY 07/16/21 07/16/21 History (loratadine)] melatonin 3 mg PO HS 07/16/21 07/16/21 History pantoprazole 40 mg PO QAM 07/16/21 07/16/21 History rivaroxaban [Xarelto] 20 mg PO DAILY 07/16/21 07/16/21 History Laboratory Tests 07/15/21 07/15/21 07/15/21 23:35 23:35 23:35 WBC 8.7 K/mm3 K/mm3 (4.5-10.0) RBC 2.84 M/mm3 L M/mm3 (4.2-5.4) Hgb 9.7 g/dL L D g/dL (12.0-15.0) Hct 30.0 % L % (37.0-47.0) MCV 105.6 fl H fl (80-100) MCH 34.2 pg H pg (26-34) MCHC 32.3 g/dl g/dl (32-36) RDW 13.4 % % (11.5-14.5) Plt Count 292 k/mm3 k/mm3 (150-375) MPV 9.7 fl fl (7.4-10.4) Immature Gran % (Auto) 0.9 % H % (0-0.5) Neut % (Auto) 73.5 % H % (45.5-73.1) Lymph % (Auto) 21.1 % % (18.3-44.2) [place] % (Auto) 4.3 % % (2.6-8.5) Eos % (Auto) 0.0 % % (0-4.4) Baso % (Auto) 0.2 % % (0.2-1.2) Lymph # (Auto) 1.83 K/mm3 K/mm3 (0.9-3.2) [place] # (Auto) 0.4 K/mm3 K/mm3 (0.1-0.6) Eos # (Auto) 0.0 K/mm3 K/mm3 (0-0.3) Baso # (Auto) 0.0 K/mm3 K/mm3 (0.0-0.1) Abs Immat Gran (auto) 0.08 K/mm3 H K/mm3 (0.00-0.031) Absolute Neuts (auto) 6.4 K/mm3 K/mm3 (1.3-6.7) Absolute Nucleated RBC 0.0 K/mm3 K/mm3 (0.0-0.012) Nucleated RBC % 0.0 % % (0.0-0.2) PT 17.9 Seconds H Seconds (11.1-14.7) INR 1.5 APTT 34.8 SECONDS SECONDS (22.3-36.8) Sodium 133 mmol/L L mmol/L (137-145) Potassium 4.8 mmol/L mmol/L (3.4-5.0) Chloride 100 mmol/L mmol/L (98-107) Carbon Dioxide 27 mmol/L mmol/L (22-30) Anion Gap 6 mmol/L L mmol/L (8-16) BUN 64 mg/dL H D mg/dL (7-17) Creatinine 1.10 mg/dL H mg/dL (0.7-1.0) Estim Creat Clear Calc
--- NOTE | 2021-07-16 12:30 | PM.IMHP ---
H&P: HPI History of Present Illness Date/Time: 07/16/21 1230 Chief Complaint: Nausea vomiting diarrhea Narrative: Patient is an 80-year-old female with a past medical history of anemia, Alzheimer's, CHF, hypertension, AFib, schizoaffective disorder seizure disorder who presented to the ED for multiple episodes of nausea vomiting and loose bowel movements. Patient stated that she had been throwing up and had multiple episodes over the last couple days. She admits to her last meal being on Monday. She did have abdominal pain however that has subsided. She denies any coffee-ground emesis or melena. Patient states that she thinks that all of this is rise whenever she had a ANALYTICAL RESEARCH PROGRAM MANAGER at her house that had the flu. After the ANALYTICAL RESEARCH PROGRAM MANAGER had left does when she has started noticing symptoms the next day. She also stated that she had a cough that was producing a lot of clear thick mucus and headache. She admits to being weak and tired. She denies any more diarrhea or constipation. GI has been consulted and she went for an EGD which did not show any ulceration at this time. She denies any lightheadedness, dizziness, fevers, sweats, chills, recent falls. Review of Systems Review of Systems: All systems reviewed & are unremarkable except as noted in HPI and below PMFSH Past Medical History Medical History Alzheimers disease Anxiety CHF (congestive heart failure) Echocardiogram March 2019 demonstrating mild left atrial enlargement, grade 1 diastolic dysfunction EF 60-65%; trace aortic, pulmonic, and tricuspid regurgitation. Dementia Follows with neurologist, Dr. 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 Patient resides at [facility]. She has a state IDPA form on the chart and indicates her code status is DNR. She denies any alcohol or other substance use. Former smoker quit in 1979. Smoking packs per day: 1 Smoking cigarettes per day: 20.0 Years smoked: 10 Smoking pack-years: 10.00 Smoking status: Former smoker Tobacco type: cigarettes Smoking end date: 05/08/79 Alcohol intake: never Substance use: never Substance use type: does not use Living arrangements: long-term Occupation/Education: retired Additional occupation/education comments: [employer] Gender identity (if verbalized by the patient): Female Sexual Orientation (if Verbalized by the Patient): Straight or Heterosexual 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: No Agree to blood products: Yes Meds Home Medications and Allergies Home Medications Medication Instructions Recorded Confirmed Type aspirin 81 mg PO DAILY 03/20/19 07/16/21 History atorvastatin 10 mg PO DAILY 03/20/19 07/16/21 History cholecalciferol (vitamin D3) 50,000 unit PO WEEKLY 03/20/19 07/16/21 History cyanocobalamin (vitamin B-12) 1,000 mcg PO DAILY 03/20/19 07/16/21 History donepezil 10 mg PO HS 03/20/19 07/16/21 History fludrocortisone 0.1 mg PO DAILY 03/20/19 07/16/21 History furosemide 20 mg PO JYOTI
[2021-07-16 12:31] LABS: Lactic Acid Reflex 1.5 mmol/L (0.7-2.1)
[2021-07-16 13:29] LABS: Hematocrit 22.3 % (37.0-47.0); Hemoglobin 7.1 g/dL (12.0-15.0)
[2021-07-16 15:09] LABS: Lactate Dehydrogenase 558 U/L (313-618)
[2021-07-16 15:18] LABS: Transferrin 202 mg/dL (206-381)
[2021-07-16 15:41] LABS: Iron 66 ug/dL (37-170)
[2021-07-16 15:50] LABS: Percent Iron Saturation 24 % (20-50)
[2021-07-16 16:16] LABS: Folic Acid 9.8 ng/mL (2.76->20)
[2021-07-16] MEDS: POTASSIUM CHLORIDE 20 MEQ TABLET.ER PO (16:20)
[2021-07-16] MEDS: RIVAROXABAN 20 MG TABLET PO (16:21)
[2021-07-16] MEDS: DONEPEZIL HCL 10 MG TABLET PO (19:59)
[2021-07-16] MEDS: levETIRAcetam 250 MG TABLET PO (19:59)
[2021-07-16] MEDS: MELATONIN 3 MG TABLET PO (20:00)
[2021-07-17] VITALS (9 sets, daily range): BP systolic 102–114; BP diastolic 46–60; PULSE 74–94; RESP 20–21; TEMP 36–36.2; O2SAT 97–100
[2021-07-17 05:17] LABS: Basophils Percent Auto 0.6 % (0.2-1.2); Eosinophils Absolute Auto 0.1 K/mm3 (0-0.3); Eosinophils Percent Auto 1.4 % (0-4.4); Hematocrit 22.2 % (37.0-47.0); Hemoglobin 7.1 g/dL (12.0-15.0); Immature Granulocyte Absolute 0.03 K/mm3 (0.00-0.031); Immature Granulocyte Percent A 0.6 % (0-0.5); Lymphocytes Absolute Auto 1.61 K/mm3 (0.9-3.2); Lymphocytes Percent Auto 31.9 % (18.3-44.2); Mean Corpuscular Hemoglobin 34.5 pg (26-34); Mean Corpuscular Volume 107.8 fl (80-100); Mean Platelet Volume 9.9 fl (7.4-10.4); Monocytes Absolute Auto 0.4 K/mm3 (0.1-0.6); Monocytes Percent Auto 8.7 % (2.6-8.5); Neutrophils Absolute Auto 2.9 K/mm3 (1.3-6.7); Neutrophils Percent Auto 56.8 % (45.5-73.1); Platelet Count Result 191 k/mm3 (150-375); Red Blood Count 2.06 M/mm3 (4.2-5.4); Red Cell Distribution Width 13.7 % (11.5-14.5)
[2021-07-17 05:26] LABS: Alanine Aminotransferase 29 U/L (4-35); Albumin Level 2.8 g/dL (3.5-5.1); Alkaline Phosphatase 49 U/L (38-126); Anion Gap 2 mmol/L (8-16); Aspartate Amino Transferase 46 U/L (14-36); Bilirubin,Total 0.3 mg/dL (0.2-1.3); Blood Urea Nitrogen 24 mg/dL (7-17); Calcium 8.1 mg/dL (8.4-10.2); Carbon Dioxide 26 mmol/L (22-30); Chloride 108 mmol/L (98-107); Estimated CRCL calculation 36 ml/min; Estimated Glomerular Filt Rate 53; Glucose 80 mg/dL (65-110); Potassium 4.1 mmol/L (3.4-5.0); Sodium 136 mmol/L (137-145)
--- NOTE | 2021-07-17 07:30 | PM.IMPN ---
Progress Note: A&P Assessment and Plan (1) Anemia: Code(s): D64.9 - Anemia, unspecified Status: Acute Assessment and Plan: Current hemoglobin/hematocrit is 7.1/22.2 Probably secondary to dilution Anemia labs Iron: 66, TIBC 271, % sat 24, Transferrin 202, Ferritin 69.60, B12 706, Folate 9.8 Continue to trend H&H No Supplementation is indicated Transfuse if hemoglobin less than 7 EGD negative for ulcer or bleed Stool has been reported as brown H/H stable at this time (2) Seizure disorder: Code(s): G40.909 - Epilepsy, unspecified, not intractable, without status epilepticus Status: Chronic Assessment and Plan: Continue home Lamictal, Keppra No signs of breakthrough seizure at this time (3) Schizoaffective disorder: Qualifiers: Schizoaffective disorder type: unspecified Qualified Code(s): F25.9 - Schizoaffective disorder, unspecified Code(s): F25.9 - Schizoaffective disorder, unspecified Status: Chronic Assessment and Plan: Continue Abilify (4) Paroxysmal atrial fibrillation: Code(s): I48.0 - Paroxysmal atrial fibrillation Status: Chronic Assessment and Plan: EKG shows sinus tachycardia Tele monitor shows sinus rhythm with PACs PVCs Trend electrolytes Continue Xarelto (5) Hyperlipidemia: Qualifiers: Hyperlipidemia type: unspecified Qualified Code(s): E78.5 - Hyperlipidemia, unspecified Code(s): E78.5 - Hyperlipidemia, unspecified Status: Chronic Assessment and Plan: Continue home atorvastatin 10 mg p.o. daily (6) Dementia: Qualifiers: Dementia behavioral disturbance: without behavioral disturbance Dementia type: unspecified type Qualified Code(s): F03.90 - Unspecified dementia without behavioral disturbance Code(s): F03.90 - Unspecified dementia without behavioral disturbance Status: Chronic Assessment and Plan: Continue home donepezil, duloxetine, Abilify Trend mood Adjust medications as indicated Time Spent With Patient Time with patient: Greater than 35 minutes Subjective Date/time seen: 07/17/21 0730 Interval history: Date/Time: 07/16/21 1230 Narrative: Patient is an 80-year-old female with a past medical history of anemia, Alzheimer's, CHF, hypertension, AFib, schizoaffective disorder seizure disorder who presented to the ED for multiple episodes of nausea vomiting and loose bowel movements. Patient stated that she had been throwing up and had multiple episodes over the last couple days. She admits to her last meal being on Monday. She did have abdominal pain however that has subsided. She denies any coffee-ground emesis or melena. Patient states that she thinks that all of this is rise whenever she had a ACROBATIC DANCER at her house that had the flu. After the ACROBATIC DANCER had left does when she has started noticing symptoms the next day. She also stated that she had a cough that was producing a lot of clear thick mucus and headache. She admits to being weak and tired. She denies any more diarrhea or constipation. GI has been consulted and she went for an EGD which did not show any ulceration at this time. She denies any lightheadedness, dizziness, fevers, sweats, chills, recent falls. Date/Time 07/17/21 0730 patient was lying in bed. Patient stated that she feels okay today. Hemoglobin did stay stable at 7.1. She denies any nausea, vomiting, diarrhea, constipation. Patient stated that she has not had any signs or symptoms of bleeding including melena or coffee-ground emesis. Patient did state that she just started eating and normally does have some abdominal pain however she has not in the last couple days. She does have good color and feels like she does have good color she was more concerned that her hair did not look great. She denies any chest pain, shortness of breath, weakness or fatigue. Review
--- NOTE | 2021-07-17 07:30 | P.PNIM_ITS ---
Progress Note: A&P Assessment and Plan (1) Anemia: Code(s): D64.9 - Anemia, unspecified Status: Acute Assessment and Plan: * Current hemoglobin/hematocrit is 7.1/22.2 * Probably secondary to dilution * Anemia labs Iron: 66, TIBC 271, % sat 24, Transferrin 202, Ferritin 69.60, B12 706, Folate 9.8 * Continue to trend H&H * No Supplementation is indicated * Transfuse if hemoglobin less than 7 * EGD negative for ulcer or bleed * Stool has been reported as brown * H/H stable at this time (2) Seizure disorder: Code(s): G40.909 - Epilepsy, unspecified, not intractable, without status epilepticus Status: Chronic Assessment and Plan: * Continue home Lamictal, Keppra * No signs of breakthrough seizure at this time (3) Schizoaffective disorder: Qualifiers: Schizoaffective disorder type: unspecified Qualified Code(s): F25.9 - Schizoaffective disorder, unspecified Code(s): F25.9 - Schizoaffective disorder, unspecified Status: Chronic Assessment and Plan: * Continue Abilify (4) Paroxysmal atrial fibrillation: Code(s): I48.0 - Paroxysmal atrial fibrillation Status: Chronic Assessment and Plan: * EKG shows sinus tachycardia * Tele monitor shows sinus rhythm with PACs PVCs * Trend electrolytes * Continue Xarelto (5) Hyperlipidemia: Qualifiers: Hyperlipidemia type: unspecified Qualified Code(s): E78.5 - Hyperli pidemia, unspecified Code(s): E78.5 - Hyperlipidemia, unspecified Status: Chronic Assessment and Plan: * Continue home atorvastatin 10 mg p.o. daily (6) Dementia: Qualifiers: Dementia behavioral disturbance: without behavioral disturbance Dementia type: unspecified type Qualified Code(s): F03.90 - Unspecified dementia without behavioral disturbance Code(s): F03.90 - Unspecified dementia without behavioral disturbance Status: Chronic Assessment and Plan: * Continue home donepezil, duloxetine, Abilify * Trend mood * Adjust medications as indicated Time Spent With Patient Time with patient: Greater than 35 minutes Subjective Date/time seen: 07/17/21 0730 Interval history: Date/Time: 07/16/21 1230 Narrative: Patient is an 80-year-old female with a past medical history of anemia, Alzheimer's, CHF, hypertension, AFib, schizoaffective disorder seizure disorder who presented to the ED for multiple episodes of nausea vomiting and loose bowel movements. Patient stated that she had been throwing up and had multiple episodes over the last couple days. She admits to her last meal being on Monday. She did have abdominal pain however that has subsided. She denies any coffee-ground emesis or melena. Patient states that she thinks that all of this is rise whenever she had a ULTRASOUND COORDINATOR at her house that had the flu. After the ULTRASOUND COORDINATOR had left does when she has started noticing symptoms the next day. She also stated that she had a cough that was producing a lot of clear thick mucus and headache. She admits to being weak and tired. She denies any more diarrhea or constipation. GI has been consulted and she went for an EGD which did not show any ulceration at this time. She denies any lightheadedness, dizziness, fevers, sweats, chills, recent falls. Date/Time 07/17/21 0730 patient was lying in bed. Patient stated that she feels okay today. Hemoglobin did stay stable at 7.1. She denies any nausea, vomiting, diarrhea, co
[2021-07-17] MEDS: DEXAMETHASONE 2 MG TABLET 6 MG PO (07:59)
[2021-07-17] MEDS: DULoxetine HCL 60 MG CAPSULE.DR PO (07:59)
[2021-07-17] MEDS: ASPIRIN 81 MG ENTERIC TABLET PO (08:00)
[2021-07-17] MEDS: FLUDROCORTISONE ACETATE 0.1 MG TABLET PO (08:00)
[2021-07-17] MEDS: levETIRAcetam 250 MG TABLET PO ×2 (08:00→21:16)
[2021-07-17] MEDS: lamoTRIgine 100 MG TABLET PO (08:01)
[2021-07-17] MEDS: LORATADINE 10 MG TABLET PO (09:46)
[2021-07-17] MEDS: ATORVASTATIN 10 MG TABLET PO (09:46)
[2021-07-17] MEDS: FAMOTIDINE 20 MG TABLET PO (09:46)
[2021-07-17] MEDS: DOCUSATE SODIUM 100 MG CAPSULE PO (09:46)
[2021-07-17] MEDS: FERROUS SULFATE 324 MG TABLET PO (09:46)
[2021-07-17] MEDS: PANTOPRAZOLE 40 MG TABLET PO (09:46)
[2021-07-17] MEDS: ARIPiprazole 2 MG TABLET PO (09:47)
[2021-07-17] MEDS: MAGNESIUM OXIDE 400 MG TABLET PO (09:47)
[2021-07-17] MEDS: CYANOCOBALAMIN 1,000 MCG TABLET 1000 MCG PO (09:47)
[2021-07-17] MEDS: polyethylene glycoL 3350 17 GM POWD.PACK PO (09:47)
[2021-07-17] MEDS: POTASSIUM CHLORIDE 20 MEQ TABLET.ER PO ×2 (09:47→16:21)
[2021-07-17] MEDS: FUROSEMIDE 20 MG TABLET PO (09:47)
[2021-07-17] MEDS: DONEPEZIL HCL 10 MG TABLET PO (21:16)
[2021-07-17] MEDS: MELATONIN 3 MG TABLET PO (21:16)
[2021-07-18] VITALS (15 sets, daily range): BP systolic 116–132; BP diastolic 40–89; PULSE 67–110; RESP 16–20; TEMP 36–36.6; O2SAT 97–100
[2021-07-18] MEDS: guaiFENesin 200 MG/10 ML UDC 100 MG PO (01:18)
--- NOTE | 2021-07-18 03:22 | PC.NURSE ---
Daylight Savings Time For Daylight Savings Time Ending in the Fall - Clocks are moved back. For Daylight Savings Time Beginning in the Spring - Clocks are moved ahead. For [facility], the time of change occurs at 0200 hrs. Time is taken from the seismograph observer. This entry on the patient's chart recognizes the change in time reflected during documentation. Example: 2 entries for vital signs may be charted for 0200 hrs.
[2021-07-18 05:11] LABS: Basophils Percent Auto 0.2 % (0.2-1.2); Immature Granulocyte Absolute 0.08 K/mm3 (0.00-0.031); Immature Granulocyte Percent A 1.4 % (0-0.5); Lymphocytes Absolute Auto 1.62 K/mm3 (0.9-3.2); Lymphocytes Percent Auto 27.4 % (18.3-44.2); Mean Corpuscular HGB Conc 31.9 g/dl (32-36); Mean Corpuscular Volume 106.7 fl (80-100); Mean Platelet Volume 10.1 fl (7.4-10.4); Monocytes Absolute Auto 0.2 K/mm3 (0.1-0.6); Monocytes Percent Auto 3.7 % (2.6-8.5); Neutrophils Percent Auto 67.3 % (45.5-73.1); Nucleated Red Blood Cells Perc 0.3 % (0.0-0.2); Platelet Count Result 199 k/mm3 (150-375); Red Blood Count 1.94 M/mm3 (4.2-5.4); Red Cell Distribution Width 13.5 % (11.5-14.5); White Blood Count 5.9 K/mm3 (4.5-10.0)
[2021-07-18 05:20] LABS: Potassium 4.4 mmol/L (3.4-5.0)
[2021-07-18 05:22] LABS: Alanine Aminotransferase 27 U/L (4-35); Albumin Level 3.2 g/dL (3.5-5.1); Alkaline Phosphatase 47 U/L (38-126); Anion Gap 4 mmol/L (8-16); Aspartate Amino Transferase 40 U/L (14-36); Bilirubin,Total 0.5 mg/dL (0.2-1.3); Blood Urea Nitrogen 23 mg/dL (7-17); Calcium 8.3 mg/dL (8.4-10.2); Carbon Dioxide 24 mmol/L (22-30); Chloride 105 mmol/L (98-107); Estimated CRCL calculation 39 ml/min; Estimated Glomerular Filt Rate 60; Glucose 110 mg/dL (65-110); Magnesium 2.1 mg/dL (1.6-2.3); Sodium 133 mmol/L (137-145)
[2021-07-18 05:34] LABS: Hematocrit 20.7 % (37.0-47.0)
[2021-07-18 05:35] LABS: Hemoglobin 6.6 g/dL (12.0-15.0)
--- NOTE | 2021-07-18 08:45 | P.PNIM_ITS ---
Progress Note: A&P Assessment and Plan (1) Anemia: Code(s): D64.9 - Anemia, unspecified Status: Acute Assessment and Plan: * Current hemoglobin/hematocrit is 6.6/20.7 * Probably secondary to dilution * Anemia labs Iron: 66, TIBC 271, % sat 24, Transferrin 202, Ferritin 69.60, B12 706, Folate 9.8 * Continue to trend H&H * No Supplementation is indicated * Transfuse if hemoglobin less than 7 * EGD negative for ulcer or bleed * Stool has been reported as brown * H/H stable at this time * Dr. Peacock ok'd restarting xarelto * Give 1 unit of PRBC * Recheck H/H 1 hour post infusion (2) Seizure disorder: Code(s): G40.909 - Epilepsy, unspecified, not intractable, without status epilepticus Status: Chronic Assessment and Plan: * Continue home Lamictal, Keppra * No signs of breakthrough seizure at this time (3) Schizoaffective disorder: Qualifiers: Schizoaffective disorder type: unspecified Qualified Code(s): F25.9 - Schizoaffective disorder, unspecified Code(s): F25.9 - Schizoaffective disorder, unspecified Status: Chronic Assessment and Plan: * Continue Abilify (4) Paroxysmal atrial fibrillation: Code(s): I48.0 - Paroxysmal atrial fibrillation Status: Chronic Assessment and Plan: * EKG shows sinus tachycardia * Tele monitor shows sinus rhythm with PACs PVCs * Trend electrolytes * Continue Xarelto (5) Hyperlipidemia: Qualifiers: Hyperlipidemia type: unspecified Qualified Code(s): E78.5 - Hyperlipidemia, unspecified Code(s): E78.5 - Hyperlipidemia, unspecified Status: Chronic Assessment and Plan: * Continue home atorvastatin 10 mg p.o. daily (6) Dementia: Qualifiers: Dementia behavioral disturbance: without behavioral disturbance Dementia type: unspecified type Qualified Code(s): F03.90 - Unspecified dementia without behavioral disturbance Code(s): F03.90 - Unspecified dementia without behavioral disturbance Status: Chronic Assessment and Plan: * Continue home donepezil, duloxetine, Abilify * Trend mood * Adjust medications as indicated Subjective Date/time seen: 07/18/21 0845 Interval history: Date/Time: 07/16/21 1230 Narrative: Patient is an 80-year-old female with a past medical history of anemia, Alzheimer's, CHF, hypertension, AFib, schizoaffective disorder seizure disorder who presented to the ED for multiple episodes of nausea vomiting and loose bowel movements. Patient stated that she had been throwing up and had multiple episodes over the last couple days. She admits to her last meal being on Monday. She did have abdominal pain however that has subsided. She denies any coffee-ground emesis or melena. Patient states that she thinks that all of this is rise whenever she had a BUTTER MAKER at her house that had the flu. After the BUTTER MAKER had left does when she has started noticing symptoms the next day. She also stated that she had a cough that was producing a lot of clear thick mucus and headache. She admits to being weak and tired. She denies any more diarrhea or constipation. GI has been consulted and she went for an EGD which did not show any ulceration at this time. She denies any lightheadedness, dizziness, fevers, sweats, chills, recent falls. Date/Time 07/17/21 0730 patient was lying in bed. Patient stated that she feels okay today. Hemoglobin did stay stable at 7.1. She denies any guerline
--- NOTE | 2021-07-18 08:45 | PM.IMPN ---
Progress Note: A&P Assessment and Plan (1) Anemia: Code(s): D64.9 - Anemia, unspecified Status: Acute Assessment and Plan: Current hemoglobin/hematocrit is 6.6/20.7 Probably secondary to dilution Anemia labs Iron: 66, TIBC 271, % sat 24, Transferrin 202, Ferritin 69.60, B12 706, Folate 9.8 Continue to trend H&H No Supplementation is indicated Transfuse if hemoglobin less than 7 EGD negative for ulcer or bleed Stool has been reported as brown H/H stable at this time Dr. Peacock ok'd restarting xarelto Give 1 unit of PRBC Recheck H/H 1 hour post infusion (2) Seizure disorder: Code(s): G40.909 - Epilepsy, unspecified, not intractable, without status epilepticus Status: Chronic Assessment and Plan: Continue home Lamictal, Keppra No signs of breakthrough seizure at this time (3) Schizoaffective disorder: Qualifiers: Schizoaffective disorder type: unspecified Qualified Code(s): F25.9 - Schizoaffective disorder, unspecified Code(s): F25.9 - Schizoaffective disorder, unspecified Status: Chronic Assessment and Plan: Continue Abilify (4) Paroxysmal atrial fibrillation: Code(s): I48.0 - Paroxysmal atrial fibrillation Status: Chronic Assessment and Plan: EKG shows sinus tachycardia Tele monitor shows sinus rhythm with PACs PVCs Trend electrolytes Continue Xarelto (5) Hyperlipidemia: Qualifiers: Hyperlipidemia type: unspecified Qualified Code(s): E78.5 - Hyperlipidemia, unspecified Code(s): E78.5 - Hyperlipidemia, unspecified Status: Chronic Assessment and Plan: Continue home atorvastatin 10 mg p.o. daily (6) Dementia: Qualifiers: Dementia behavioral disturbance: without behavioral disturbance Dementia type: unspecified type Qualified Code(s): F03.90 - Unspecified dementia without behavioral disturbance Code(s): F03.90 - Unspecified dementia without behavioral disturbance Status: Chronic Assessment and Plan: Continue home donepezil, duloxetine, Abilify Trend mood Adjust medications as indicated Subjective Date/time seen: 07/18/21 0845 Interval history: Date/Time: 07/16/21 1230 Narrative: Patient is an 80-year-old female with a past medical history of anemia, Alzheimer's, CHF, hypertension, AFib, schizoaffective disorder seizure disorder who presented to the ED for multiple episodes of nausea vomiting and loose bowel movements. Patient stated that she had been throwing up and had multiple episodes over the last couple days. She admits to her last meal being on Monday. She did have abdominal pain however that has subsided. She denies any coffee-ground emesis or melena. Patient states that she thinks that all of this is rise whenever she had a MACHINE BUFFER at her house that had the flu. After the MACHINE BUFFER had left does when she has started noticing symptoms the next day. She also stated that she had a cough that was producing a lot of clear thick mucus and headache. She admits to being weak and tired. She denies any more diarrhea or constipation. GI has been consulted and she went for an EGD which did not show any ulceration at this time. She denies any lightheadedness, dizziness, fevers, sweats, chills, recent falls. Date/Time 07/17/21 0730 patient was lying in bed. Patient stated that she feels okay today. Hemoglobin did stay stable at 7.1. She denies any nausea, vomiting, diarrhea, constipation. Patient stated that she has not had any signs or symptoms of bleeding including melena or coffee-ground emesis. Patient did state that she just started eating and normally does have some abdominal pain however she has not in the last couple days. She does have good color and feels like she does have good color she was more concerned that her hair did not look great. She denies any chest pain, shortness of breath, weakne
[2021-07-18] MEDS: POTASSIUM CHLORIDE 20 MEQ TABLET.ER PO ×2 (09:40→17:38)
[2021-07-18] MEDS: FUROSEMIDE 20 MG TABLET PO (09:40)
[2021-07-18] MEDS: polyethylene glycoL 3350 17 GM POWD.PACK PO (09:40)
[2021-07-18] MEDS: PANTOPRAZOLE 40 MG TABLET PO (09:41)
[2021-07-18] MEDS: levETIRAcetam 250 MG TABLET PO ×2 (09:41→20:15)
[2021-07-18] MEDS: lamoTRIgine 100 MG TABLET PO (09:41)
[2021-07-18] MEDS: DULoxetine HCL 60 MG CAPSULE.DR PO (09:41)
[2021-07-18] MEDS: LORATADINE 10 MG TABLET PO (09:41)
[2021-07-18] MEDS: FERROUS SULFATE 324 MG TABLET PO (09:41)
[2021-07-18] MEDS: MAGNESIUM OXIDE 400 MG TABLET PO (09:41)
[2021-07-18] MEDS: ATORVASTATIN 10 MG TABLET PO (09:41)
[2021-07-18] MEDS: FAMOTIDINE 20 MG TABLET PO (09:41)
[2021-07-18] MEDS: DOCUSATE SODIUM 100 MG CAPSULE PO ×2 (09:41→17:38)
[2021-07-18] MEDS: CYANOCOBALAMIN 1,000 MCG TABLET 1000 MCG PO (09:42)
[2021-07-18] MEDS: DEXAMETHASONE 2 MG TABLET 6 MG PO (09:42)
[2021-07-18] MEDS: ASPIRIN 81 MG ENTERIC TABLET PO (09:42)
[2021-07-18] MEDS: FLUDROCORTISONE ACETATE 0.1 MG TABLET PO (09:42)
[2021-07-18] MEDS: ARIPiprazole 2 MG TABLET PO (09:42)
[2021-07-18 11:42] LABS: Hematocrit 29.9 % (37.0-47.0); Hemoglobin 10.1 g/dL (12.0-15.0)
--- NOTE | 2021-07-18 11:57 | WPDGIPROGNO ---
Progress Note: A&P Assessment and Plan (1) Anemia: Code(s): D64.9 - Anemia, unspecified Status: Acute Assessment and Plan: initial hemoglobin 9.7, repeat is pending She cannot recall if she has ever had a colonoscopy. 07/18 this morning's hemoglobin is 6.6. Now after transfusion Is up to 10.1 (2) GI bleed: Code(s): K92.2 - Gastrointestinal hemorrhage, unspecified Status: Acute Assessment and Plan: she has been started on pantoprazole. She is NPO. I told her that we will schedule her for an EGD to be done today. We discussed the procedure, use of sedation, the risks such as bleeding or perforation or cardiopulmonary complications 07/18 still no evidence of bleeding. (3) Nausea and vomiting: Code(s): R11.2 - Nausea with vomiting, unspecified Status: Acute Assessment and Plan: This has resolved. The staff states that she did not eat much for breakfast. She just received her lunch, a chicken wrap. She thinks that she will be able to eat some of it. (4) Abdominal pain: Code(s): R10.9 - Unspecified abdominal pain Status: Acute Assessment and Plan: By location in epigastric area this suggests upper gastrointestinal disease. EGD was unremarkable. Actually today 07/18, she denies any pain (5) Paroxysmal atrial fibrillation: Code(s): I48.0 - Paroxysmal atrial fibrillation Status: Chronic Assessment and Plan: the ER physician denied that she had any recent to be anticoagulated but she is clearly on Xarelto or at least has been on it for a diagnosis of atrial fibrillation. EKG reveals sinus tachycardia on bundle branch block but no atrial fibrillation or flutter. I discussed anticoagulation with hospitalist, Dr. Rasheed and I felt that it was okay to restart Xarelto. Subjective Date/time seen: 07/18/21 11:57 Her hemoglobin came up nicely after transfusion, currently 10.1. She is sitting in a chair ready to start eating lunch. She states that she is no longer nauseated or having pain although her appetite is 'not the best' Interval history: Date/Time: 07/16/21 1230 Narrative: Patient is an 80-year-old female with a past medical history of anemia, Alzheimer's, CHF, hypertension, AFib, schizoaffective disorder seizure disorder who presented to the ED for multiple episodes of nausea vomiting and loose bowel movements. Patient stated that she had been throwing up and had multiple episodes over the last couple days. She admits to her last meal being on Monday. She did have abdominal pain however that has subsided. She denies any coffee-ground emesis or melena. Patient states that she thinks that all of this is rise whenever she had a TELECOMMUNICATIONS SUPPORT at her house that had the flu. After the TELECOMMUNICATIONS SUPPORT had left does when she has started noticing symptoms the next day. She also stated that she had a cough that was producing a lot of clear thick mucus and headache. She admits to being weak and tired. She denies any more diarrhea or constipation. GI has been consulted and she went for an EGD which did not show any ulceration at this time. She denies any lightheadedness, dizziness, fevers, sweats, chills, recent falls. Date/Time 07/17/21 0730 patient was lying in bed. Patient stated that she feels okay today. Hemoglobin did stay stable at 7.1. She denies any nausea, vomiting, diarrhea, constipation. Patient stated that she has not had any signs or symptoms of bleeding including melena or coffee-ground emesis. Patient did state that she just started eating and normally does have some abdominal pain however she has not in the last couple days. She does have good color and feels like she does have good color she was more concerned that her hair did not look great. She denies any chest pain, shortness of breath, weakness or fatigue. Date/Time 07/18/21 4045 Patient seems to be doing well today. She did state that her right arm aches from just have noted
[2021-07-18] MEDS: DONEPEZIL HCL 10 MG TABLET PO (20:15)
[2021-07-18] MEDS: MELATONIN 3 MG TABLET PO (20:16)
[2021-07-19 00:07] VITALS: O2SAT 98
[2021-07-19 04:46] VITALS: BP 131/49; PULSE 81; RESP 18; TEMP 36.6; O2SAT 98
[2021-07-19 05:39] LABS: Basophils Absolute Auto 0.1 K/mm3 (0.0-0.1); Basophils Percent Auto 0.6 % (0.2-1.2); Hematocrit 27.4 % (37.0-47.0); Hemoglobin 9.2 g/dL (12.0-15.0); Immature Granulocyte Absolute 0.24 K/mm3 (0.00-0.031); Immature Granulocyte Percent A 2.5 % (0-0.5); Lymphocytes Absolute Auto 2.09 K/mm3 (0.9-3.2); Lymphocytes Percent Auto 21.4 % (18.3-44.2); Mean Corpuscular HGB Conc 33.6 g/dl (32-36); Mean Corpuscular Hemoglobin 32.6 pg (26-34); Mean Corpuscular Volume 97.2 fl (80-100); Mean Platelet Volume 9.7 fl (7.4-10.4); Monocytes Absolute Auto 0.7 K/mm3 (0.1-0.6); Monocytes Percent Auto 7.3 % (2.6-8.5); Neutrophils Absolute Auto 6.7 K/mm3 (1.3-6.7); Neutrophils Percent Auto 68.2 % (45.5-73.1); Nucleated Red Blood Cells Absolute Auto 0.1 K/mm3 (0.0-0.012); Nucleated Red Blood Cells Perc 0.5 % (0.0-0.2); Platelet Count Result 218 k/mm3 (150-375); Red Blood Count 2.82 M/mm3 (4.2-5.4); Red Cell Distribution Width 16.5 % (11.5-14.5); White Blood Count 9.8 K/mm3 (4.5-10.0)
[2021-07-19 05:51] LABS: Alanine Aminotransferase 27 U/L (4-35); Albumin Level 3.5 g/dL (3.5-5.1); Alkaline Phosphatase 49 U/L (38-126); Anion Gap 5 mmol/L (8-16); Aspartate Amino Transferase 43 U/L (14-36); Bilirubin,Total 0.8 mg/dL (0.2-1.3); Blood Urea Nitrogen 24 mg/dL (7-17); Calcium 8.7 mg/dL (8.4-10.2); Carbon Dioxide 25 mmol/L (22-30); Chloride 106 mmol/L (98-107); Estimated CRCL calculation 36 ml/min; Estimated Glomerular Filt Rate 53; Glucose 100 mg/dL (65-110); Magnesium 2.1 mg/dL (1.6-2.3); Potassium 4.1 mmol/L (3.4-5.0); Sodium 136 mmol/L (137-145)
--- NOTE | 2021-07-19 06:20 | PC.NURSE ---
07/18/211999 Pt was angry about having assistance back to bed & taking her medications. She attempted to hit and kick at staff. Then attempted to hit staff with her walker when she was told she couldn't get up without assistance. Later she took her telemetry off and threatened to hit and bite staff if they tried to put it back on her.
[2021-07-19] MEDS: DEXAMETHASONE 2 MG TABLET 6 MG PO (09:13)
[2021-07-19] MEDS: ASPIRIN 81 MG ENTERIC TABLET PO (09:14)
[2021-07-19] MEDS: ARIPiprazole 2 MG TABLET PO (09:14)
[2021-07-19] MEDS: ATORVASTATIN 10 MG TABLET PO (09:14)
[2021-07-19 09:15] VITALS: PULSE 81; RESP 18; O2SAT 98
[2021-07-19] MEDS: CYANOCOBALAMIN 1,000 MCG TABLET 1000 MCG PO (09:15)
[2021-07-19] MEDS: DULoxetine HCL 60 MG CAPSULE.DR PO (09:15)
[2021-07-19] MEDS: FAMOTIDINE 20 MG TABLET PO (09:16)
[2021-07-19] MEDS: FUROSEMIDE 20 MG TABLET PO (09:16)
[2021-07-19] MEDS: levETIRAcetam 250 MG TABLET PO ×2 (09:16→21:01)
[2021-07-19] MEDS: FERROUS SULFATE 324 MG TABLET PO (09:16)
[2021-07-19] MEDS: lamoTRIgine 100 MG TABLET PO (09:16)
[2021-07-19] MEDS: FLUDROCORTISONE ACETATE 0.1 MG TABLET PO (09:16)
[2021-07-19] MEDS: ERGOCALCIFEROL 50,000 UNIT CAPSULE 50000 UNITS PO (09:16)
[2021-07-19] MEDS: MAGNESIUM OXIDE 400 MG TABLET PO (09:17)
[2021-07-19] MEDS: POTASSIUM CHLORIDE 20 MEQ TABLET.ER PO ×2 (09:17→17:00)
[2021-07-19] MEDS: LORATADINE 10 MG TABLET PO (09:17)
[2021-07-19] MEDS: DOCUSATE SODIUM 100 MG CAPSULE PO ×2 (09:18→17:00)
[2021-07-19] MEDS: polyethylene glycoL 3350 17 GM POWD.PACK PO (09:18)
[2021-07-19] MEDS: PANTOPRAZOLE 40 MG TABLET PO (09:18)
[2021-07-19 14:00] VITALS: BP 147/60; PULSE 83; RESP 22; TEMP 36.3; O2SAT 99
--- NOTE | 2021-07-19 15:51 | PM.IMPN ---
Progress Note: A&P Assessment and Plan (1) Anemia: Code(s): D64.9 - Anemia, unspecified Status: Acute Assessment and Plan: Sp Egd showing hiatal hernia Hb improved from 6 to 9 [facility] (2) Seizure disorder: Code(s): G40.909 - Epilepsy, unspecified, not intractable, without status epilepticus Status: Chronic Assessment and Plan: Continue home Lamictal, Keppra No signs of breakthrough seizure at this time (3) Schizoaffective disorder: Qualifiers: Schizoaffective disorder type: unspecified Qualified Code(s): F25.9 - Schizoaffective disorder, unspecified Code(s): F25.9 - Schizoaffective disorder, unspecified Status: Chronic Assessment and Plan: Continue Abilify (4) Paroxysmal atrial fibrillation: Code(s): I48.0 - Paroxysmal atrial fibrillation Status: Chronic Assessment and Plan: watch Hb carefully Continue Xarelto (5) Hyperlipidemia: Qualifiers: Hyperlipidemia type: unspecified Qualified Code(s): E78.5 - Hyperlipidemia, unspecified Code(s): E78.5 - Hyperlipidemia, unspecified Status: Chronic Assessment and Plan: Continue home atorvastatin 10 mg p.o. daily (6) Dementia: Qualifiers: Dementia type: unspecified type Dementia behavioral disturbance: without behavioral disturbance Qualified Code(s): F03.90 - Unspecified dementia without behavioral disturbance Code(s): F03.90 - Unspecified dementia without behavioral disturbance Status: Chronic Assessment and Plan: Continue home donepezil, duloxetine, Abilify Mild confusion but pleasantly confused Subjective Date/time seen: 07/19/21 15:51 Interval history: Date/Time: 07/16/21 1230 Narrative: Patient is an 80-year-old female with a past medical history of anemia, Alzheimer's, CHF, hypertension, AFib, schizoaffective disorder seizure disorder who presented to the ED for multiple episodes of nausea vomiting and loose bowel movements. Patient stated that she had been throwing up and had multiple episodes over the last couple days. She admits to her last meal being on Monday. She did have abdominal pain however that has subsided. She denies any coffee-ground emesis or melena. Patient states that she thinks that all of this is rise whenever she had a MARITIME GUARD at her house that had the flu. After the MARITIME GUARD had left does when she has started noticing symptoms the next day. She also stated that she had a cough that was producing a lot of clear thick mucus and headache. She admits to being weak and tired. She denies any more diarrhea or constipation. GI has been consulted and she went for an EGD which did not show any ulceration at this time. She denies any lightheadedness, dizziness, fevers, sweats, chills, recent falls. Date/Time 07/17/21 0730 patient was lying in bed. Patient stated that she feels okay today. Hemoglobin did stay stable at 7.1. She denies any nausea, vomiting, diarrhea, constipation. Patient stated that she has not had any signs or symptoms of bleeding including melena or coffee-ground emesis. Patient did state that she just started eating and normally does have some abdominal pain however she has not in the last couple days. She does have good color and feels like she does have good color she was more concerned that her hair did not look great. She denies any chest pain, shortness of breath, weakness or fatigue. Date/Time 07/18/21 0845 Patient seems to be doing well today. She did state that her right arm aches from just have noted still so she can get her blood. She denies any stool or vomiting with blood in it. She did have a BM yesterday which she said is just really hard. She also stating that she feels like she is urinating every 30 minutes. And she did not have very good slumber last night. She mar
[2021-07-19 16:16] VITALS: O2SAT 98
[2021-07-19 20:37] VITALS: BP 144/57; PULSE 66; RESP 18; TEMP 36.1; O2SAT 97
[2021-07-19] MEDS: DONEPEZIL HCL 10 MG TABLET PO (21:01)
[2021-07-19] MEDS: MELATONIN 3 MG TABLET PO (21:01)
[2021-07-20 05:05] VITALS: BP 141/76; PULSE 66; RESP 20; TEMP 36.1; O2SAT 98
[2021-07-20] MEDS: MAGNESIUM OXIDE 400 MG TABLET PO (08:51)
[2021-07-20] MEDS: LORATADINE 10 MG TABLET PO (08:51)
[2021-07-20] MEDS: levETIRAcetam 250 MG TABLET PO (08:51)
[2021-07-20] MEDS: ATORVASTATIN 10 MG TABLET PO (08:51)
[2021-07-20] MEDS: lamoTRIgine 100 MG TABLET PO (08:51)
[2021-07-20] MEDS: DULoxetine HCL 60 MG CAPSULE.DR PO (08:51)
[2021-07-20] MEDS: DOCUSATE SODIUM 100 MG CAPSULE PO (08:51)
[2021-07-20] MEDS: FERROUS SULFATE 324 MG TABLET PO (08:51)
[2021-07-20] MEDS: FAMOTIDINE 20 MG TABLET PO (08:51)
[2021-07-20] MEDS: polyethylene glycoL 3350 17 GM POWD.PACK PO (08:51)
[2021-07-20] MEDS: FLUDROCORTISONE ACETATE 0.1 MG TABLET PO (08:51)
[2021-07-20] MEDS: POTASSIUM CHLORIDE 20 MEQ TABLET.ER PO (08:51)
[2021-07-20] MEDS: FUROSEMIDE 20 MG TABLET PO (08:51)
[2021-07-20] MEDS: PANTOPRAZOLE 40 MG TABLET PO (08:51)
[2021-07-20] MEDS: ASPIRIN 81 MG ENTERIC TABLET PO (08:52)
[2021-07-20] MEDS: CYANOCOBALAMIN 1,000 MCG TABLET 1000 MCG PO (08:52)
[2021-07-20] MEDS: DEXAMETHASONE 4 MG TABLET PO (08:53)
[2021-07-20] MEDS: ARIPiprazole 2 MG TABLET PO (08:55)
[2021-07-20 09:12] LABS: Basophils Percent Auto 0.3 % (0.2-1.2); Hematocrit 29.3 % (37.0-47.0); Hemoglobin 9.5 g/dL (12.0-15.0); Immature Granulocyte Absolute 0.45 K/mm3 (0.00-0.031); Immature Granulocyte Percent A 4.8 % (0-0.5); Lymphocytes Percent Auto 31.7 % (18.3-44.2); Mean Corpuscular HGB Conc 32.4 g/dl (32-36); Mean Corpuscular Hemoglobin 32.9 pg (26-34); Mean Corpuscular Volume 101.4 fl (80-100); Mean Platelet Volume 9.7 fl (7.4-10.4); Monocytes Absolute Auto 0.7 K/mm3 (0.1-0.6); Monocytes Percent Auto 7.4 % (2.6-8.5); Neutrophils Absolute Auto 5.3 K/mm3 (1.3-6.7); Neutrophils Percent Auto 55.8 % (45.5-73.1); Nucleated Red Blood Cells Absolute Auto 0.1 K/mm3 (0.0-0.012); Nucleated Red Blood Cells Perc 0.7 % (0.0-0.2); Platelet Count Result 256 k/mm3 (150-375); Red Blood Count 2.89 M/mm3 (4.2-5.4); Red Cell Distribution Width 16.7 % (11.5-14.5); White Blood Count 9.5 K/mm3 (4.5-10.0)
[2021-07-20 09:26] LABS: Alanine Aminotransferase 23 U/L (4-35); Albumin Level 3.5 g/dL (3.5-5.1); Alkaline Phosphatase 49 U/L (38-126); Anion Gap 5 mmol/L (8-16); Aspartate Amino Transferase 32 U/L (14-36); Bilirubin,Total 0.7 mg/dL (0.2-1.3); Blood Urea Nitrogen 21 mg/dL (7-17); Calcium 8.6 mg/dL (8.4-10.2); Carbon Dioxide 25 mmol/L (22-30); Chloride 105 mmol/L (98-107); Estimated CRCL calculation 33 ml/min; Estimated Glomerular Filt Rate 48; Glucose 83 mg/dL (65-110); Potassium 4.1 mmol/L (3.4-5.0); Sodium 135 mmol/L (137-145)
--- NOTE | 2021-07-20 11:13 | PM.DS ---
DS: Admitting Diagnosis Discharge Date 07/20/21 Admitting Diagnosis GI Bleed/Acute blood loss anemia DS: Discharge Diagnosis Discharge Diagnosis (1) Anemia: Code(s): D64.9 - Anemia, unspecified Status: Acute Assessment and Plan: Sp Egd showing hiatal hernia Hb improved from 6 to 9 Can return back to [facility] once approved (2) Seizure disorder: Code(s): G40.909 - Epilepsy, unspecified, not intractable, without status epilepticus Status: Chronic Assessment and Plan: Continue home Lamictal, Keppra No signs of breakthrough seizure at this time (3) Schizoaffective disorder: Qualifiers: Schizoaffective disorder type: unspecified Qualified Code(s): F25.9 - Schizoaffective disorder, unspecified Code(s): F25.9 - Schizoaffective disorder, unspecified Status: Chronic Assessment and Plan: Continue Abilify (4) Paroxysmal atrial fibrillation: Code(s): I48.0 - Paroxysmal atrial fibrillation Status: Chronic Assessment and Plan: watch Hb carefully Continue Xarelto (5) Hyperlipidemia: Qualifiers: Hyperlipidemia type: unspecified Qualified Code(s): E78.5 - Hyperlipidemia, unspecified Code(s): E78.5 - Hyperlipidemia, unspecified Status: Chronic Assessment and Plan: Continue home atorvastatin 10 mg p.o. daily (6) Dementia: Qualifiers: Dementia behavioral disturbance: without behavioral disturbance Dementia type: unspecified type Qualified Code(s): F03.90 - Unspecified dementia without behavioral disturbance Code(s): F03.90 - Unspecified dementia without behavioral disturbance Status: Chronic Assessment and Plan: Continue home donepezil, duloxetine, Abilify Mild confusion but pleasantly confused DS: Summary Hospital Course Hospital Course: Patient 80-year-old female with a past medical history of anemia, Alzheimer's, CHF, hypertension, AFib, schizoaffective disorder, seizures, who presented the ED for multiple episodes of nausea vomiting and loose bowel movements. Upon arrival to the ED it was verbally transfer to the attending physician there was a positive occult blood stool. H&H was reported low from her baseline which was in the nines. Patient was given fluids for dehydration. The next day patient's hemoglobin dropped to 7.1. Hemoglobin was stable at 7.1 patient had no complaints however it did drop below 60 patient got 1 unit of packed red blood cells. H&H has stabilized and is currently 9.5/29.3. Dr Peacock was consulted and took the patient for EGD which was negative for any kind of ulcer or bleed. Anemia labs were also drawn however supplement changes were not indicated as her iron was 66. Her home ferrous sulfate was continued upon arrival. Patient has not had no acute issues including chest pain, shortness of breath, nausea, vomiting, diarrhea, constipation, weakness or fatigue. Patient did work with PT and OT. Patient was also noted to be on steroids however steroids have been discontinued and weaned off. Patient is ready to go and denies any complaints at this time table for discharge. Status at Discharge Functional status at discharge: uses cane/walker Overall status at discharge: patient is progressing back to baseline Time Spent with Patient Time attestation: Total time spent providing and/or coordinating discharge services: 48 minutes Time spent: Greater than 30 minutes Specific discharge activities: Diagnostic testing, chart review, developing a treatment plan, education, care coordination documentation, physical exam, result review Exam Const: General: cooperative, healthy appearing, no acute distress, well developed, alert and awake; No in distress Nutritional Appearance: well nourished Orientation/consciousness: oriented to place, oriented to time, patient oriented x3 and Other orientation fi
[2021-07-20 13:23] LABS: EDCOVIDSCREEN Negative (Negative)
[2021-07-20 14:20] LABS: Hematocrit 32.7 % (37.0-47.0); Hemoglobin 10.8 g/dL (12.0-15.0)
[2021-07-20 14:28] VITALS: BP 107/74; PULSE 88; RESP 16; TEMP 36.7; O2SAT 95
== END 2021-07-20 15:33 | DRG 812 ==
LOC: ANHED 07-16 01:58 → ANH2MED 07-16 01:59
PROVIDERS: Internal Medicine Gastroenterology; Admitting Provider Internal Medicine; Emergency Provider Emergency Medicine; Visit Provider Nurse Practitioner
PROC: 0DJ08ZZ Inspection of Upper Intestinal Tract, Via Natural or Artificial Opening Endoscopic (ICD-10-PCS; CPT 43235; principal; 2021-07-16 13:30)
DX: D64.9 Anemia, unspecified (principal); I50.32 Chronic diastolic (congestive) heart failure; R19.5 Other fecal abnormalities; K44.9 Diaphragmatic hernia without obstruction or gangrene; R10.13 Epigastric pain; G40.909 Epilepsy, unspecified, not intractable, without status epilepticus; K21.9 Gastro-esophageal reflux disease without esophagitis; E86.0 Dehydration; F25.9 Schizoaffective disorder, unspecified; I48.0 Paroxysmal atrial fibrillation; E78.5 Hyperlipidemia, unspecified; G30.9 Alzheimer's disease, unspecified; F02.80 Dementia in other diseases classified elsewhere, unspecified severity, without behavioral disturbance, psychotic disturbance, mood disturbance, and anxiety; I11.0 Hypertensive heart disease with heart failure; I50.9 Heart failure, unspecified; Z66 Do not resuscitate; M81.0 Age-related osteoporosis without current pathological fracture; E55.9 Vitamin D deficiency, unspecified; Z79.01 Long term (current) use of anticoagulants; Z86.73 Personal history of transient ischemic attack (TIA), and cerebral infarction without residual deficits; Z90.710 Acquired absence of both cervix and uterus; Z87.891 Personal history of nicotine dependence; Z79.82 Long term (current) use of aspirin
CPT/HCPCS: 36415; 36430; 73502; 74177; 80053; 81001; 82607; 82728; 82746; 83540; 83550; 83605; 83615; 83690; 83735; 84443; 84466; 85014; 85018; 85025; 85610; 85730; 86850; 86900; 86901; 86920; 87081; 87426; 93005; 96361; 96374; 97110; 97161; 97165; 97530; 99285; A9270; C9113; C9803; G0378; J2001; J2704; J7030; J7040; J7120; J8540; P9016; Q9967

== ENCOUNTER 2022-04-04 17:41 | Inpatient (IN) | payer MEDICARE, MEDICAID, SELFPAY ==
[2022-04-04] VITALS (7 sets, daily range): BP systolic 119–153; BP diastolic 53–84; PULSE 72–90; RESP 18–30; TEMP 36.7–38.7; O2SAT 97–99
--- NOTE | ~2022-04-04 | CT_ITS ---
EXAMINATION: CT abdomen pelvis w con DATE: 04/04/2022 20:50 INDICATION: abd pain, sepsis TECHNIQUE: Computed tomography (CT) of the abdomen and pelvis was performed with 100 mL Omnipaque-350 intravenous contrast. Automated exposure control and iterative reconstruction technique were employe d. The dose-length product was 998.98 mGy-cm. COMPARISON: 07/16/2021. FINDINGS: Lower thorax: Atelectasis/consolidation in the left lung base. Bibasilar scarring. Large hiatal herni a. Liver: Normal. Biliary/Gallbladder: Gallbladder is normal. No bile duct dilation. Pancreas: No mass or duct dilation. Spleen: Normal. Adrenals:Left adrenal adenoma. Kidneys: Patchy bilateral parenchymal enhancement. Minimal stranding extending along the bilateral ur eters. Simple midpole left cyst. Subcentimeter hypodensities on the right, too small to characterize. GI tract: Severe gastric wall edema. No small or large bowel dilation. Normal appendix. Diverticulosi s without diverticulitis. Mesentery/Peritoneum: No ascites, mass, or free air. Retroperitoneum: No mass. Atherosclerotic abdominal aortic and/or arterial calcifications. Pelvis: Partially obscured by metal artifact. Urinary bladder wall thickening and inflammatory change . Soft Tissues: Soft tissues and body wall unremarkable. Bones: No acute osseous finding. Incompletely visualized left hip arthroplasty hardware. Prior L1 ve rtebroplasty. IMPRESSION: Left lower lobe opacities may represent atelectasis or consolidation, possibly with a component of as piration. Severe gastritis. Cystitis with ascending infection and bilateral pyelonephritis. Reviewed, dictated and finalized at location K. S PERSON IMPRESSION: Left lower lobe opacities may represent atelectasis or consolidation, possibly with a component of aspiration. Severe gastritis. Cystitis with ascending infec tion and bilateral pyelonephritis.
--- NOTE | ~2022-04-04 | CT_ITS ---
EXAMINATION: CT guide absc cath placement DATE: 04/19/2022 14:10 INDICATION: Left psoas abscess. TECHNIQUE: The procedure including the risks, benefits, and alternatives was discussed with the patie nt. Risks discussed included bleeding and infection. The patient understood the risks and benefits an d agreed to proceed. The skin overlying the abdomen was prepped and draped in usual sterile fashion. Anesthetic was administered with 1% lidocaine subcutaneously. An 18 gauge trochar needle was inserte d into the left psoas abscess with CT guidance. The needle was exchanged over a wire for 5 Tajik and 7 Tajik dilators and then for an 8.5 Tajik pigtail catheter. The catheter was stitched to the skin , and a sterile dressing was applied. The mA was adjusted according to patient size. Iterative recons truction technique was employed. The dose-length product was 222.34 mGy-cm. There were no immediate c omplications. FINDINGS: CT images demonstrate the catheter within the left psoas abscess. 1 mL fluid was aspirated for testing. IMPRESSION: 1. Successful CT-guided left psoas abscess drainage. 2. 1 mL bloody fluid was sent for aerobic and anaerobic cultures. Reviewed, dictated and finalized at location A. CAL ASSISTANT SUPERVISOR
--- NOTE | ~2022-04-04 | XR_ITS ---
EXAMINATION: XR chest 1V Exam Date/Time: 04/04/2022 18:15 BUILDING CONSTRUCTION PROFESSOR HISTORY: ALTERED MENTAL STATUS, SEPSIS Comparison: 07/04/2019. RESULT: Lines, tubes, and devices: None. Lungs and pleura: Left basilar scar/atelectasis. Bibasilar subsegmental patchy airspace disease, gre ater in the left medial/basal lung. Cardiomediastinal silhouette: Stable. Other: No acute osseous or upper abdominal finding. IMPRESSION: Bibasilar atelectasis/consolidation, worse in the left lung base. Reviewed, dictated and finalized at location K. DING CONSTRUCTION PROFESSOR
--- NOTE | ~2022-04-04 | CT_ITS ---
EXAMINATION: CT lumbar spine wo con DATE: 04/12/2022 09:26 DEICER INSPECTOR ELECTRIC INDICATION: Lower extremity weakness TECHNIQUE: Computed tomography (CT) of the lumbar spine was performed without intravenous contrast. T he dose-length product was 1191.70 mGy-cm. Automated exposure control and iterative reconstruction te herson were employed. COMPARISON: CT abdomen dated 04/04/2022 FINDINGS: There is a chronic burst fracture of L1 with vertebroplasty changes and retropulsion into t he canal measuring approximately 5 mm. There is a chronic superior endplate compression fracture of T 12. There is a moderate chronic compression fracture of L2. There is disc narrowing at L5-S1 with vac uum phenomena. There is a Schmorl's node at T11. There is mild multilevel facet hypertrophy. There is a moderate size hiatal hernia. There are bilateral pleural effusions. There are calcified granulomas of the spleen. There is an exophytic left renal cyst. There is atherosclerosis of the aorta. There i s mild central canal stenosis at the L1 level secondary to the burst fracture.. The following disc le vels are specifically discussed: T11-T12: The disc does not extend beyond the endplate margin. There is no facet joint osteoarthritis. There is no neural foraminal stenosis. There is no central canal stenosis. T12-L1: There is mild annular disc bulging There is mild facet joint osteoarthritis. There is mild bi lateral neural foraminal stenosis. There is no central canal stenosis. L1-L2: The disc does not extend beyond the endplate margin. There is no facet joint osteoarthritis. T here is no neural foraminal stenosis. There is no central canal stenosis. L2-L3: There is mild annular disc bulging There is mild facet joint osteoarthritis. There is no neura l foraminal stenosis. There is no central canal stenosis. L3-L4: There is mild annular disc bulging There is mild facet joint osteoarthritis. There is no neura l foraminal stenosis. There is no central canal stenosis. L4-L5: There is moderate There is moderate facet joint osteoarthritis. There is no neural foraminal s tenosis. There is no central canal stenosis. L5-S1: The disc does not extend beyond the endplate margin. There is moderate facet joint osteoarthri tis. There is no neural foraminal stenosis. There is no central canal stenosis. IMPRESSION: 1. Stable chronic fractures of T12, L1 and L2 with central canal stenosis at the L1 level. 2: Moderate-severe cervical spondylosis. 3: Small pleural effusions. Left lower lobe airspace disease, likely atelectasis. Reviewed, dictated and finalized at location A. ER INSPECTOR ELECTRIC IMPRESSION: 1. Stable chronic fractures of T12, L1 and L2 with central canal stenosis at th e L1 level. 2: Moderate-severe cervical spondylosis. 3: Small pleural effusions. Left lower lobe airspace disease, likely atelectasi s.
--- NOTE | ~2022-04-04 | CT_ITS ---
EXAMINATION: CT brain wo con DATE: 04/04/2022 18:23 INDICATION: AMS, weakness . TECHNIQUE: Computed tomography (CT) of the head was performed without intravenous contrast. The mA wa s adjusted according to patient size. Iterative reconstruction technique was employed. The dose-lengt h product was 908.00 mGy-cm. COMPARISON: 09/23/2019. FINDINGS: No acute intracranial hemorrhage or extra-axial fluid collection. No hydrocephalus, mass, or herniation. No acute ischemic infarct. Unremarkable dural venous sinus attenuation. No acute osseous abnormality. Mild mucosal thickening in the right frontal sinus, the remaining aerated spaces are clear. Moderate atrophy and moderate chronic white matter change. Atherosclerotic intracranial calcification . 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 IMPRESSION: No acute intracranial process. Reviewed, dictated and finalized at location K. LEMENTAL NURSE
--- NOTE | ~2022-04-04 | MR_ITS ---
EXAMINATION: MR lumbar spine wo con DATE: 04/15/2022 07:27 INDICATION: Lower extremity pain and weakness TECHNIQUE: Magnetic resonance imaging (MRI) of the lumbar spine was performed without intravenous con trast. Sequences included sagittal T2-weighted FSE, sagittal T2-weighted FS FSE, sagittal T1-weighted FSE, and axial T2-weighted FSE. COMPARISON: Lumbar spine CT dated 04/11/2022 and 03/14/2018 FINDINGS: Mild lower lumbar levocurvature. Chronic L1 burst fracture with 80% anterior to central vertebral bod y height loss and change of prior vertebroplasty. This results in associated focal kyphosis. There is also 6 mm retropulsion resulting in moderate central canal stenosis. Additional chronic L2 burst fra cture with 50% anterior to central vertebral body height loss and 2 mm retropulsion. There are Schmor l's nodes along the superior endplates of T11 and T12 and at both sides of the T9-T10 disc space. Mil d right-sided disc height loss at L4-L5 and moderate right-sided predominant disc height loss at L5-S 1. Normal marrow signal. The conus medullaris terminates at L1-L2. There is normal signal in the cau katarina spinal cord. There is new asymmetric enlargement of the left psoas muscle. There is mild edema in the left psoas muscle surrounding a 4.7 x 2.0 x 1.2 cm lenticular region of decreased T2 signal with subtle heterogeneous increased T1 signal relative to the contralateral right psoas muscle and with s ubtle corresponding increased attenuation on prior CT. Paravertebral soft tissues are otherwise unrem arkable. The following disc levels are specifically discussed: T12-L1: The disc does not extend beyond the retropulsed superior endplate of L1. There is moderate bi lateral facet joint osteoarthritis. There is mild bilateral neural foraminal stenosis. There is moder ate central canal stenosis. L1-L2: Disc is bulging. There is also mild retropulsion of the superior posterior wall of L2. There i s mild bilateral facet joint osteoarthritis. There is moderate bilateral neural foraminal stenosis. T here is mild central canal stenosis. L2-L3: Disc is bulging with annular fissure. There is mild to moderate bilateral facet joint osteoart hritis. There is moderate left and mild to moderate right neural foraminal stenosis. There is mild ce ntral canal stenosis. L3-L4: Disc is bulging. There is mild left and moderate right facet joint osteoarthritis. There is mi ld left and mild to moderate right neural foraminal stenosis. There is mild central canal stenosis. L4-L5: Disc is bulging. There is severe bilateral facet joint osteoarthritis. There is mild left and mild to moderate right neural foraminal stenosis. There is mild central canal stenosis. L5-S1: Disc is mildly bulging with superimposed annular fissure and right foraminal zone disc extrusi on which exerts mass effect upon the traversing right S1 nerve root. There is severe bilateral facet joint osteoarthritis. There is mild left and mild to moderate right neural foraminal stenosis. There is no central canal stenosis. IMPRESSION: 1. 4.7 x 2.0 x 1.2 cm lesion with surrounding edema in the left psoas muscle most suspicious for maninder maikel or abscess in the appropriate clinical setting. Solid neoplasm considered less likely given loca tion, configuration and signal characteristics although not be absolutely excluded in the absence of intravenous contrast. Consider further evaluation with pre and postcontrast CT or MRI. 2. Chronic L1 and L2 compression fractures at the former with change of prior vertebroplasty and sign ificant retropulsion resulting in moderate central canal stenosis. 3. Mild to moderate lumbar spondylosis most notable for a right foraminal zone annular fissure and di sc extrusion at L5-S1 which exerts mass effect upon the traversing right S1 nerve root. Reviewed, dictated and
--- NOTE | ~2022-04-04 | XR_ITS ---
EXAM: XR hip LT min 2V DATE: 04/09/2022 15:21 HISTORY: patient fell at home,c/o left hip pain . COMPARISON: CT abdomen and pelvis 04/04/2022. FINDINGS: Left hip arthroplasty, without hardware fracture or abnormal hardware lucency. Decreased m ineralization. No fracture or dislocation. No lytic or blastic lesion. Degenerative change at the pub ic symphysis and lumbar spine. No erosion or periosteal change. Pelvic phleboliths. IMPRESSION: No acute osseous finding or hardware related complication in the left hip. Reviewed, dictated and finalized at location K. CE SALES CONSULTANT IMPRESSION: No acute osseous finding or hardware related complication in the le ft hip.
--- NOTE | ~2022-04-04 | US_ITS ---
US abdomen limited INDICATION: Abnormal liver function tests PROCEDURE: Realtime right upper abdominal ultrasound. COMPARISON: No prior studies for comparison. FINDINGS: The pancreas is normal without focal mass or pancreatic ductal dilation. Liver echotexture is normal without focal mass or intrahepatic biliary dilatation. There is normal directional flow i n the portal vein. The gallbladder is normal without stones, gallbladder wall thickening or pericholecystic fluid. Comm on bile duct measures 5 mm. No sonographic Lozoya's sign. IMPRESSION: 1: Normal limited abdominal ultrasound. Reviewed, dictated and finalized at location A. OYMENT MANAGER
--- NOTE | ~2022-04-04 | CT_ITS ---
EXAMINATION: CT pelvis wo con DATE: 04/21/2022 20:10 INDICATION: Abdominal pain. No drainage from the recently placed left psoas percutaneous abscess dusty hubbard TECHNIQUE: Computed tomography (CT) of the pelvis was performed without intravenous contrast. Automat ed exposure control and iterative reconstruction technique were employed.The dose-length product was 640.66 mGy-cm. COMPARISON: MRI dated 04/15/[address] dated 04/19/2022 and 04/11/2022 FINDINGS: The left psoas percutaneous abscess drain has withdrawn with the lateral distal tip now positioned al deven the anterior margin of the left psoas muscle. There is a tiny focus of gas within the prior absce ss cavity partially visualized 1.7 cm exophytic cyst at the lower pole of the left kidney large amoun t stool scattered throughout the colon. There are few sigmoid diverticula without adjacent inflammato ry change to suggest diverticulitis. No bowel obstruction. Normal appendix. Bladder is normal. The ut erus is not identified and has likely been surgically resected. No free intraperitoneal gas or new ab scess identified. Left total hip arthroplasty. Old healed right superior and inferior pubic rami frac tures. IMPRESSION: 1. Tiny focus of gas within the likely decompressed left psoas muscle abscess cavity. The distal loop of the previously placed abscess drainage catheter has retracted, now positioned peripheral to the a nterior margin of the left psoas muscle. The catheter is now of no benefit and would recommend remova l. Reviewed, dictated and finalized at location A. TY COORDINATOR IMPRESSION: 1. Tiny focus of gas within the likely decompressed left psoas muscle abscess c avity. The distal loop of the previously placed abscess drainage catheter has r etracted, now positioned peripheral to the anterior margin of the left psoas mu scle. The catheter is now of no benefit and would recommend removal.
--- NOTE | ~2022-04-04 | MR_ITS ---
EXAMINATION: MR pelvis wo/w con DATE: 04/15/2022 11:28 INDICATION: Psoas abscess. TECHNIQUE: Magnetic resonance imaging (MRI) of the pelvis was performed without and with 15 mL Multih ance intravenous contrast. Fullfield sequences of the pelvis included axial and coronal T2-weighted S S FSE, coronal 2D FIESTA, axial T1-weighted FSPGR, axial dual-echo T1-weighted FSPGR and axial T1 nicky ghted LAVA. Postcontrast sequences included a time course axial T1-weighted LAVA with fullfield of v iew of the pelvis and a delayed full-field coronal axial T1-weighted LAVA. COMPARISON: CT abdomen pelvis dated 04/04/2022 and lumbar spine MR dated 04/25/2022 FINDINGS: There is a large amount of metallic magnetic field artifact in the cine of the left hip which reduces fat saturation in the left hemipelvis. This does not however limited assessment of the left psoas le yane of concern on the postcontrast LAVA imaging. There is enhancement at the periphery and along a c ouple internal septations of a likely left psoas muscle abscess which extends 5.6 cm craniocaudally a nd measures up to 2.0 x 1.5 cm in maximal transaxial dimensions. The abscess extends from the level o f the caudal third of L4 to the level of the caudal margin of S1. There is normal bone marrow signal throughout. Specifically no abnormal signal or enhancement at the lumbar vertebral bodies or disc spa rahel to suggest an associated discitis across myelitis. At the left hip there is additional 1.3 x 1.3 cm peripherally enhancing likely complex intramuscular fluid collection with high but less than simple fluid T2 signal intensity in the anterior aspect of t he distal left gluteus say muscle belly near the posterior margin of the left greater trochanter. There is an additional separate appearing fluid collection with more homogeneous high simple fluid s ignal along the deep margin of the left gluteus medius say and the posterior medial margin of the left greater trochanter which extends along the cephalad tip of the greater trochanter in the region of the gluteus medius medius bursa. This collection extends up to 6 cm in craniocaudal length with t he largest pocket measuring 2.4 x 2.0 cm in transaxial dimensions. No definitive peripheral enhanceme nt although assessment is limited by the adjacent metallic field artifact. Visualized portion of the bowels, the lower poles of the kidneys and caudal tip of the liver are all unremarkable. Bladder is n ormal. The uterus is not identified and has likely been surgically resected. Small amount of scattere d nonloculated subcutaneous edema with additional nonloculated edema without associated enhancement o verlying the anterolateral margin of the right greater trochanter. No free fluid in the pelvis. IMPRESSION: 1. 5.6 x 2.0 x 1.5 cm left psoas intramuscular abscess without evident involvement of the lumbar spin e. 2. Additional small 1.3 x 1.3 cm likely intramuscular abscess at the distal left gluteus say musc le and very close proximity to but appearing separate from a larger and deeper left gluteus medius bu rsal fluid collection which demonstrates signal characteristics more consistent with simple fluid and without evident shadowing peripheral enhancement which is less concerning for infection. Reviewed, dictated and finalized at location A. OTIONAL MARKETING AGENT IMPRESSION: 1. 5.6 x 2.0 x 1.5 cm left psoas intramuscular abscess without evident involvem ent of the lumbar spine. 2. Additional small 1.3 x 1.3 cm likely intramuscular abscess at the distal lef t gluteus say muscle and very close proximity to but appearing separate fro m a larger and deeper left gluteus medius bursal fluid collection which demonst rates signal characteristics more consistent with simple fluid and without evid ent
--- NOTE | 2022-04-04 17:40 | ED.AMS ---
HPI - Altered Mental Status General Chief Complaint: Altered Mental Status Stated Complaint: more lethargic than normal Source: patient Mode of arrival: ambulatory Limitations: no limitations History of Present Illness HPI narrative: Patient is an 81-year-old female with a history of previous CVA, dementia, paroxysmal atrial fibrillation, orthostatic hypotension, chronic diastolic congestive heart failure, anxiety, schizoaffective disorder, and seizure disorder?on keppra and lamotrigine, presenting to the ER for evaluation of lethargy, altered mental status. Patient was noted by care facility staff today to have decreased responsiveness and confusion from baseline. Patient is noted to be usually alert and oriented to person, place, and to time. Currently, patient is alert and oriented to person, can identify the president, not oriented to place or time. Patient is able to follow simple commands, does motion to her abdomen when questioned about pain. Other history is limited secondary to altered mental status. Per EMS, patient was afebrile, alert and oriented x2 for their evaluation. They report her vital signs were stable and she was afebrile in route. Patient has DNR/DNI forms and paperwork. Related Data Home Medications Medication Instructions Recorded Confirmed aspirin 81 mg tablet,delayed 81 mg PO DAILY 03/20/19 04/04/22 release atorvastatin 10 mg tablet 10 mg PO DAILY 03/20/19 04/04/22 cholecalciferol (vitamin D3) 1,250 50,000 unit PO WEEKLY 03/20/19 04/04/22 mcg (50,000 unit) tablet cyanocobalamin (vitamin B-12) 1,000 mcg PO DAILY 03/20/19 04/04/22 1,000 mcg capsule donepezil 10 mg tablet 10 mg PO HS 03/20/19 04/04/22 furosemide 40 mg tablet 20 mg PO DAILY 03/20/19 04/04/22 magnesium oxide 400 mg PO DAILY 03/20/19 07/16/21 polyethylene glycol 3350 17 17 g PO DAILY PRN Constipation 03/20/19 04/04/22 gram/dose oral powder (Miralax) potassium chloride 20 mEq 20 meq PO BID 03/20/19 04/04/22 tablet,extended release acetaminophen 500 mg tablet 500 mg PO Q6H PRN Pain (Scale 07/16/21 04/04/22 Score 1-3) ##0 aripiprazole 2 mg tablet (Abilify) 2 mg PO DAILY 07/16/21 04/04/22 docusate sodium 100 mg capsule 100 mg PO DAILY 07/16/21 04/04/22 (Colace) duloxetine 60 mg capsule,delayed 60 mg PO DAILY 07/16/21 04/04/22 release famotidine 20 mg disintegrating 20 mg PO DAILY 07/16/21 04/04/22 tablet ferrous sulfate 325 mg (65 mg 325 mg PO DAILY 07/16/21 04/04/22 iron) tablet,delayed release guaifenesin 200 mg tablet 200 mg PO Q4H PRN Cough ##0 07/16/21 04/04/22 lamotrigine 100 mg tablet 100 mg PO DAILY 07/16/21 04/04/22 levetiracetam 250 mg tablet 250 mg PO BID 07/16/21 04/04/22 (Keppra) loratadine 10 mg tablet (Allergy 10 mg PO DAILY 07/16/21 04/04/22 Relief (loratadine)) melatonin 3 mg tablet 3 mg PO HS 07/16/21 04/04/22 pantoprazole 40 mg tablet,delayed 40 mg PO QAM 07/16/21 04/04/22 release rivaroxaban 20 mg tablet (Xarelto) 20 mg PO DAILY 07/16/21 04/04/22 Allergies Allergy/AdvReac Type Severity Reaction Status Date / Time sertraline Allergy Severe Unknown Verified 07/16/21 10:42 hydromorphone Allergy Intermediate Unknown Verified 07/16/21 10:42 Review of Systems Review of Systems: ROS unobtainable: Yes unobtainable due to medical condition and unobtainable due to mental status PMFSH Past Medical History Medical History Alzheimers disease Anxiety CHF (congestive heart failure) Echocardiogram March 2019 demonstrating mild left atrial enlargement, grade 1 diastolic dysfunction EF 60-65%; trace aortic, pulmonic, and tricuspid regurgitation. Dementia Follows with neurologist, Dr. Galindo Depression DNR (do not resuscitate) Essential hypertension Frequent urinary tract infections With history of ESBL E coli infection March 2018 GERD (gastroesophageal reflux disease) History of CVA (cerebrovascular accident) History of TIAs Hyperlipide
--- NOTE | 2022-04-04 17:52 | ECG_ITS ---
Measurements Intervals [place] Rate: 97 P: -21 VT: 140 QRS: -19 QRSD: 136 T: 60 QT: 359 QTc: 458 Interpretive Statements SINUS RHYTHM ATRIAL PREMATURE COMPLEXES LEFT BUNDLE BRANCH BLOCK BASELINE ARTIFACT- I, II, III, AVR, AVL, AVF ABNORMAL ECG COMPARED TO ECG 07/15/2021 23:35:48 SINUS RHYTHM NOW PRESENT Electronically Signed On 04-04-2022 18:42:02 ELECTROPHYSIOLOGY NURSE PRACTITIONER by Vladimir Sosa D.O.
[2022-04-04 18:09] LABS: Alveolar/Arterial O2 Gradient 48.6 mmHg; Base Excess ABG 0.2 mEq/l (+/-2.0); Fractional Inspired Oxygen 21 %; HCO3 ABG 21.6 mEq/l (22.0-26.0); Oxygen Content ABG 15.4 %vol (16.0-22.0); Oxygen Saturation ABG 96.1 % (95.0-100.0); Oxyhemoglobin 94.3 % THb (90.0-100.0); PCO2 ABG 25.8 mmHg (35.0-45.0); PO2 ABG 70.2 mmHg (80.0-100.0); PO2 FiO2 Ratio Arterial Blood 3.34 %; Total Hemoglobin 11.6 g/dL (12.0-18.0)
[2022-04-04 18:10] LABS: Device ROOM AIR; Modified Allen's Test Pass; Site Drawn LEFT RADIAL; pH ABG 7.541 (7.350-7.450)
[2022-04-04 18:14] LABS: Glucose Point of Care 123 mg/dl (65-105)
--- NOTE | 2022-04-04 18:15 | PC.NURSE ---
Pt to CT scan and XRAY via stretcher at this time.
[2022-04-04 19:02] LABS: Appearance Urine Clear (Clear); Bilirubin Urine Negative (Negative); Blood Urine 3+ (Negative); Color Urine Yellow (Yellow); Glucose Urine UA Negative (Negative); Ketones Urine Negative (Negative); Leukocyte Esterase Ur 2+ LEU/UL (Negative); Nitrate Urine Positive (Negative); Protein Urine 2+ mg/dL (Negative); Specific Grav Ur 1.015 (1.001-1.035); Urobilinogen Urine 0.2 mg/dL (<2.0); pH Urine 5.5 (5.0-9.0)
[2022-04-04] MEDS: SODIUM CHLORIDE 0.9% IV 1,000 ML 999 ML IV CONT (19:05)
[2022-04-04 19:12] LABS: Bacteria Urine Trace /hpf; Mucus Urine Rare /lpf; RBC Urine 21-50 /hpf (0-2); Squamous Epithelial Cell Urine Rare /hpf (Few); WBC Clumps Urine Present /HPF; WBC Urine >75 /hpf
[2022-04-04 19:13] LABS: Add Urine Microscopic? YES
[2022-04-04 19:17] LABS: Basophils Percent Auto 0.3 % (0.2-1.2); Eosinophils Absolute Auto 0.1 K/mm3 (0-0.3); Eosinophils Percent Auto 0.9 % (0-4.4); Hematocrit 31.3 % (37.0-47.0); Hemoglobin 10.6 g/dL (12.0-15.0); Immature Granulocyte Absolute 0.25 K/mm3 (0.00-0.031); Immature Granulocyte Percent A 1.9 % (0-0.5); Lymphocytes Absolute Auto 0.73 K/mm3 (0.9-3.2); Lymphocytes Percent Auto 5.7 % (18.3-44.2); Mean Corpuscular HGB Conc 33.9 g/dl (32-36); Mean Corpuscular Hemoglobin 34.1 pg (26-34); Mean Corpuscular Volume 100.6 fl (80-100); Mean Platelet Volume 9.9 fl (7.4-10.4); Monocytes Percent Auto 7.6 % (2.6-8.5); Neutrophils Absolute Auto 10.7 K/mm3 (1.3-6.7); Neutrophils Percent Auto 83.6 % (45.5-73.1); Platelet Count Result 207 k/mm3 (150-375); Red Blood Count 3.11 M/mm3 (4.2-5.4); Red Cell Distribution Width 13.6 % (11.5-14.5); White Blood Count 12.8 K/mm3 (4.5-10.0)
[2022-04-04 19:28] LABS: Prothrombin Time 37.9 Seconds (11.1-14.7)
[2022-04-04 19:30] LABS: Alanine Aminotransferase 20 U/L (6-35); Albumin Level 3.8 g/dL (3.5-5.1); Alkaline Phosphatase 89 U/L (38-126); Anion Gap 10 mmol/L (8-16); Aspartate Amino Transferase 53 U/L (14-36); Bilirubin,Total 1.1 mg/dL (0.2-1.3); Blood Urea Nitrogen 23 mg/dL (7-17); Calcium 8.5 mg/dL (8.4-10.2); Carbon Dioxide 22 mmol/L (22-30); Chloride 97 mmol/L (98-107); Estimated CRCL calculation 24 ml/min; Estimated Glomerular Filt Rate 33; Glucose 123 mg/dL (65-110); Potassium 3.9 mmol/L (3.4-5.0); Sodium 129 mmol/L (137-145)
[2022-04-04 19:31] LABS: Lactic Acid Reflex 1.2 mmol/L (0.7-2.0)
[2022-04-04 19:43] LABS: Influenza A QL RT-PCR Negative (Negative); Influenza B QL RT-PCR Negative (Negative); RSV RNA, RT-PCR Negative (Negative); SARS-CoV-2 RNA PCR Negative
--- NOTE | 2022-04-04 20:04 | PM.IMHP ---
H&P: HPI History of Present Illness Date/Time: 04/04/22 20:04 Chief Complaint: altered mental status Narrative: This is an 81-year-old female who lives at [facility], she was brought to the emergency room due to a staph concerns for the patient altered mental status. patient is unable to give any history due to obtundation, lethargy. Preliminary workup was significant for: CT of abdomen and pelvis was reported as: IMPRESSION: Left lower lobe opacities may represent atelectasis or consolidation, possibly with a component of aspiration. Severe gastritis. Cystitis with ascending infection and bilateral pyelonephritis. a chest x-ray was reported as: IMPRESSION: Bibasilar atelectasis/consolidation, worse in the left lung base. lactic acid was 1.3 patient is been admitted for further evaluation management and treatment. Review of Systems Review of Systems: ROS unobtainable: Yes unobtainable due to mental status ( Obtundation, lethargy) PMFSH Past Medical History Medical History Alzheimers disease Anxiety CHF (congestive heart failure) Echocardiogram March 2019 demonstrating mild left atrial enlargement, grade 1 diastolic dysfunction EF 60-65%; trace aortic, pulmonic, and tricuspid regurgitation. Dementia Follows with neurologist, Dr. 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 Patient resides at [facility]. She has a state IDPA form on the chart and indicates her code status is DNR. She denies any alcohol or other substance use. Former smoker quit in 1979. 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 Gender identity (if verbalized by the patient): Female Sexual Orientation (if Verbalized by the Patient): Straight or Heterosexual 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: No Agree to blood products: Yes Meds Home Medications and Allergies Home Medications Medication Instructions Recorded Confirmed Type aspirin 81 mg tablet,delayed 81 mg PO DAILY 03/20/19 04/04/22 History release atorvastatin 10 mg tablet 10 mg PO DAILY 03/20/19 04/04/22 History cholecalciferol (vitamin D3) 1,250 50,000 unit PO WEEKLY 03/20/19 04/04/22 History mcg (50,000 unit) tablet cyanocobalamin (vitamin B-12) 1,000 mcg PO DAILY 03/20/19 04/04/22 History 1,000 mcg capsule donepezil 10 mg tablet 10 mg PO HS 03/20/19 04/04/22 History furosemide 40 mg tablet 20 mg PO DAILY 03/20/19 04/04/22 History magnesium oxide 400 mg PO DAILY 03/20/19 04/05/22 History polyethylene glycol 3350 17 17 g PO DAILY PRN Constipation 03/20/19 04/04/22 History gram/dose oral powder (Miralax) potassium chloride 20 mEq 20 meq PO BID 03/20/19 04/04/22 History tablet,extended release
[2022-04-04 20:06] LABS: NT Pro B Type Natriuretic Pept 1680 pg/mL (5-100)
[2022-04-04 20:28] LABS: Ammonia < 9 umol/L (9-30)
[2022-04-05] VITALS (12 sets, daily range): BP systolic 101–127; BP diastolic 44–74; PULSE 69–104; RESP 16–20; TEMP 36.1–37.5; O2SAT 95–100
[2022-04-05] MEDS: LACTATED RINGERS 1,000 ML 75 ML IV CONT ×2 (00:03→15:02)
[2022-04-05 00:23] LABS: Troponin I 0.053 ng/mL (0.000-0.034)
--- NOTE | 2022-04-05 02:18 | ADMGEN ---
This patient, Kenton Wilhelm, was admitted to IMU Room 231-01. Patient/family oriented to hospital policies and general routines including ID bracelet, bed and alarms, visiting hours, pain management, procedures, bathroom and other care routines, personal items, smoking policy, room service/diet, and visiting hours. Information on how to activate the Rapid Response Team has been discussed. Patient/Family are encouraged to report perceived risks to care and to ask questions if they do not understand what they are told or what they should do.
[2022-04-05 04:16] LABS: Troponin I 0.045 ng/mL (0.000-0.034)
[2022-04-05] MEDS: MIRABEGRON 25 MG ER TABLET PO (09:14)
[2022-04-05] MEDS: lamoTRIgine 100 MG TABLET PO (09:14)
[2022-04-05] MEDS: levETIRAcetam 250 MG TABLET PO ×2 (09:14→20:52)
[2022-04-05] MEDS: MAGNESIUM OXIDE 400 MG TABLET PO (09:14)
[2022-04-05] MEDS: DOCUSATE SODIUM 100 MG CAPSULE PO (09:14)
[2022-04-05] MEDS: ATORVASTATIN 10 MG TABLET PO (09:14)
[2022-04-05] MEDS: ARIPiprazole 2 MG TABLET PO (09:15)
[2022-04-05] MEDS: FERROUS SULFATE 324 MG TABLET PO (09:15)
[2022-04-05] MEDS: LORATADINE 10 MG TABLET PO (09:15)
[2022-04-05] MEDS: FLUTICASONE PROPIONATE 0.05% NA SPR 16 GM BTL (*BKC) 2 SPRAY NASAL (09:15)
[2022-04-05] MEDS: DULoxetine HCL 60 MG CAPSULE.DR PO (09:15)
[2022-04-05] MEDS: PANTOPRAZOLE 40 MG TABLET PO (09:15)
[2022-04-05] MEDS: FAMOTIDINE 20 MG TABLET PO (09:15)
--- NOTE | 2022-04-05 09:16 | PM.IMPN ---
Progress Note: A&P Assessment and Plan (1) Sepsis: Code(s): A41.9 - Sepsis, unspecified organism Status: Acute Assessment and Plan: Blood and urine cultures pending CT abdomen and pelvis shows possible gastritis, cystitis with pyelonephritis, possible aspiration pneumonia Continue vanc and Zosyn Speech therapy consult pending for swallow eval (2) Delirium due to general medical condition: Code(s): F05 - Delirium due to known physiological condition Status: Acute Assessment and Plan: supportive care (3) Seizure disorder: Code(s): G40.909 - Epilepsy, unspecified, not intractable, without status epilepticus Status: Chronic Assessment and Plan: continue home meds continue to monitor (4) Paroxysmal atrial fibrillation: Code(s): I48.0 - Paroxysmal atrial fibrillation Status: Chronic Assessment and Plan: rate controlled anticoagulated (5) GERD (gastroesophageal reflux disease): Qualifiers: Esophagitis presence: esophagitis presence not specified Qualified Code(s): K21.9 - Gastro-esophageal reflux disease without esophagitis Code(s): K21.9 - Gastro-esophageal reflux disease without esophagitis Status: Chronic Assessment and Plan: continue PPI (6) Dementia: Qualifiers: Dementia behavioral disturbance: without behavioral disturbance Dementia type: unspecified type Qualified Code(s): F03.90 - Unspecified dementia without behavioral disturbance Code(s): F03.90 - Unspecified dementia, unspecified severity, without behavioral disturbance, psychotic disturbance, mood disturbance, and anxiety Status: Chronic Assessment and Plan: continue donepezil (7) Pyelonephritis: Code(s): N12 - Tubulo-interstitial nephritis, not specified as acute or chronic Status: Acute Assessment and Plan: patient started on vancomycin and Zosyn deescalate antibiotics as needed (8) Lung infiltrate on CT: Code(s): R91.8 - Other nonspecific abnormal finding of lung field Status: Acute Assessment and Plan: on vancomycin and Zosyn deescalate antibiotics as needed Plan DVT prophylaxis with Xarelto GI prophylaxis with PPI Code status DNR/DNI Subjective Date/time seen: 04/05/22 09:16 Interval history: No overnight events noted. No chest pain or shortness of breath. No nausea, vomiting or diarrhea. No fevers or chills. Patient continues to feel very lethargic. She appears to be more alert and oriented than yesterday. Review of Systems Review of Systems: 12 point review of systems was assessed and was negative except as noted in the HPI Exam Narrative: General: Arousable, somnolent HEENT: Atraumatic, normocephalic, mucous membranes moist CV: Regular rate and rhythm, S1, S2 Lungs: Clear to auscultation bilaterally, no rales or crackles noted, no wheezes, good air entry Abdomen: Soft, nontender, nondistended Extremities: Normal to inspection Skin: No rashes noted, no lesions or wounds seen Psych: Unable to assess Objective Data Vital Signs Vital Signs: Vital Signs - 24 hr 04/04/22 17:42 04/04/22 18:26 04/04/22 19:45 Temperature 101.7 F H 98.3 F Pulse Rate 90 90 83 Respiratory Rate 30 H 18 Blood Pressure 153/64 H 124/55 L Pulse Oximetry 99 97 Oxygen Delivery Room Air 04/04/22 22:00 04/04/22 23:01 04/04/22 23:57 Temperature 98.4 F 98.2 F 98.2 F Pulse Rate 81 72 Respiratory Rate 18 18 Blood Pressure 119/84 126/74 Pulse Oximetry 97 97 Oxygen Delivery 04/04/22 23:20 04/05/22 00:00 04/05/22 00:00 Temperature 98.1 F Pulse Rate 76 88 88 Respiratory Rate 20 20 Blood Pressure 126/53 L Pulse Oximetry 99 99 Oxygen Delivery Room Air 04/05/22 02:00 04/05/22 04:00 04/05/22 04:00 Temperature Pulse Rate 90 86 90 Respiratory Rate 20 Blood Pressure Pulse Oximetry 99 Oxygen Delivery Room Air 1
[2022-04-05] MEDS: ASPIRIN 81 MG ENTERIC TABLET PO (09:36)
--- NOTE | 2022-04-05 10:22 | PCSTNOTE ---
Please refer to the Bedside Swallow Evaluation in the EMR. Please note, silent aspiration cannot be ruled out at bedside.
[2022-04-05 12:51] LABS: Glucose Point of Care 124 mg/dl (65-105)
[2022-04-05] MEDS: ACETAMINOPHEN 325 MG TABLET 650 MG BY MOUTH (17:03)
[2022-04-05] MEDS: RIVAROXABAN 20 MG TABLET PO (17:03)
[2022-04-05] MEDS: DONEPEZIL HCL 10 MG TABLET PO (20:52)
[2022-04-05] MEDS: MELATONIN 3 MG TABLET PO (20:52)
[2022-04-05 21:39] LABS: Glucose Point of Care 117 mg/dl (65-105)
[2022-04-06] VITALS (14 sets, daily range): BP systolic 98–126; BP diastolic 46–65; PULSE 68–130; RESP 16–24; TEMP 36.2–36.6; O2SAT 92–98
[2022-04-06] MEDS: LACTATED RINGERS 1,000 ML 75 ML IV CONT ×2 (06:30→21:04)
[2022-04-06] MEDS: ACETAMINOPHEN 325 MG TABLET 650 MG BY MOUTH ×2 (09:35→23:44)
[2022-04-06] MEDS: ASPIRIN 81 MG ENTERIC TABLET PO (09:39)
[2022-04-06] MEDS: FERROUS SULFATE 324 MG TABLET PO (09:40)
[2022-04-06] MEDS: lamoTRIgine 100 MG TABLET PO (09:40)
[2022-04-06] MEDS: MAGNESIUM OXIDE 400 MG TABLET PO (09:41)
[2022-04-06] MEDS: ARIPiprazole 2 MG TABLET PO (09:42)
[2022-04-06] MEDS: LORATADINE 10 MG TABLET PO (09:42)
[2022-04-06] MEDS: MIRABEGRON 25 MG ER TABLET PO (09:42)
[2022-04-06] MEDS: DOCUSATE SODIUM 100 MG CAPSULE PO (09:43)
[2022-04-06] MEDS: PANTOPRAZOLE 40 MG TABLET PO (09:43)
[2022-04-06] MEDS: levETIRAcetam 250 MG TABLET PO ×2 (09:43→20:26)
[2022-04-06] MEDS: ATORVASTATIN 10 MG TABLET PO (09:43)
[2022-04-06] MEDS: DULoxetine HCL 60 MG CAPSULE.DR PO (09:43)
[2022-04-06] MEDS: FAMOTIDINE 20 MG TABLET PO (09:43)
[2022-04-06] MEDS: FLUTICASONE PROPIONATE 0.05% NA SPR 16 GM BTL (*BKC) 2 SPRAY NASAL (09:43)
--- NOTE | 2022-04-06 09:45 | PM.IMPN ---
Progress Note: A&P Assessment and Plan (1) Sepsis: Code(s): A41.9 - Sepsis, unspecified organism Status: Acute Assessment and Plan: patient clinically improving Blood cx positive for GNB, sens pending Repeat blood cx ordered today 04/06 CT abdomen and pelvis shows possible gastritis, cystitis with pyelonephritis, possible aspiration pneumonia Continue vanc and Zosyn Speech therapy consult pending for swallow eval (2) Delirium due to general medical condition: Code(s): F05 - Delirium due to known physiological condition Status: Acute Assessment and Plan: improved significantly today (3) Seizure disorder: Code(s): G40.909 - Epilepsy, unspecified, not intractable, without status epilepticus Status: Chronic Assessment and Plan: continue home meds continue to monitor (4) Paroxysmal atrial fibrillation: Code(s): I48.0 - Paroxysmal atrial fibrillation Status: Chronic Assessment and Plan: rate controlled anticoagulated (5) GERD (gastroesophageal reflux disease): Qualifiers: Esophagitis presence: esophagitis presence not specified Qualified Code(s): K21.9 - Gastro-esophageal reflux disease without esophagitis Code(s): K21.9 - Gastro-esophageal reflux disease without esophagitis Status: Chronic Assessment and Plan: continue PPI (6) Dementia: Qualifiers: Dementia behavioral disturbance: without behavioral disturbance Dementia type: unspecified type Qualified Code(s): F03.90 - Unspecified dementia without behavioral disturbance Code(s): F03.90 - Unspecified dementia, unspecified severity, without behavioral disturbance, psychotic disturbance, mood disturbance, and anxiety Status: Chronic Assessment and Plan: continue donepezil (7) Pyelonephritis: Code(s): N12 - Tubulo-interstitial nephritis, not specified as acute or chronic Status: Acute Assessment and Plan: patient started on vancomycin and Zosyn deescalate antibiotics as able urine culture showing kirk sens ecoli, continue zosyn for now, awaiting blood cx (8) Lung infiltrate on CT: Code(s): R91.8 - Other nonspecific abnormal finding of lung field Status: Acute Assessment and Plan: on vancomycin and Zosyn deescalate antibiotics as needed Plan DVT prophylaxis with Xarelto GI prophylaxis with PPI Code status DNR/DNI Subjective Date/time seen: 04/06/22 09:45 Interval history: No overnight events noted. No chest pain or shortness of breath. No nausea, vomiting or diarrhea. No fevers or chills. Patient states she feels much better than yesterday, but still little weak. Review of Systems Review of Systems: 12 point review of systems was assessed and was negative except as noted in the HPI Exam Narrative: General: Appears to be alert and oriented per baseline HEENT: Atraumatic, normocephalic, mucous membranes moist CV: Regular rate and rhythm, S1, S2 Lungs: Clear to auscultation bilaterally, no rales or crackles noted, no wheezes, good air entry Abdomen: Soft, nontender, nondistended Extremities: Normal to inspection Skin: No rashes noted, no lesions or wounds seen Objective Data Vital Signs Vital Signs: Vital Signs - 24 hr 04/05/22 10:55 04/05/22 10:00 04/05/22 12:00 Temperature 99.2 F 99.5 F Pulse Rate 80 81 Respiratory Rate 20 Blood Pressure 101/44 L Pulse Oximetry 95 Oxygen Delivery 04/05/22 16:00 04/05/22 12:00 04/05/22 16:00 Temperature 97 F L Pulse Rate 86 79 72 Respiratory Rate 18 Blood Pressure 127/57 L Pulse Oximetry 99 Oxygen Delivery 04/05/22 18:00 04/05/22 20:00 04/05/22 20:00 Temperature 97.0 F L Pulse Rate 71 73 Respiratory Rate 16 Blood Pressure 116/50 L Pulse Oximetry 99 Oxygen Delivery Room Air 04/05/22 20:00 04/06/22 00:00 04/06/22 00:00 Temperature 97.3 F L Pulse Rate 69 96 Respir
[2022-04-06 10:08] LABS: Basophils Absolute Auto 0.1 K/mm3 (0.0-0.1); Basophils Percent Auto 0.7 % (0.2-1.2); Eosinophils Percent Auto 0.3 % (0-4.4); Hematocrit 29.9 % (37.0-47.0); Immature Granulocyte Absolute 0.09 K/mm3 (0.00-0.031); Immature Granulocyte Percent A 0.8 % (0-0.5); Lymphocytes Absolute Auto 1.09 K/mm3 (0.9-3.2); Lymphocytes Percent Auto 10.2 % (18.3-44.2); Mean Corpuscular HGB Conc 33.4 g/dl (32-36); Mean Corpuscular Hemoglobin 33.9 pg (26-34); Mean Corpuscular Volume 101.4 fl (80-100); Mean Platelet Volume 10.5 fl (7.4-10.4); Monocytes Absolute Auto 0.6 K/mm3 (0.1-0.6); Monocytes Percent Auto 5.8 % (2.6-8.5); Neutrophils Absolute Auto 8.8 K/mm3 (1.3-6.7); Neutrophils Percent Auto 82.2 % (45.5-73.1); Nucleated Red Blood Cells Perc 0.2 % (0.0-0.2); Platelet Count Result 207 k/mm3 (150-375); Red Blood Count 2.95 M/mm3 (4.2-5.4); Red Cell Distribution Width 13.8 % (11.5-14.5); White Blood Count 10.7 K/mm3 (4.5-10.0)
[2022-04-06 10:26] LABS: Alanine Aminotransferase 31 U/L (6-35); Albumin Level 3.1 g/dL (3.5-5.1); Alkaline Phosphatase 102 U/L (38-126); Anion Gap 9 mmol/L (8-16); Aspartate Amino Transferase 71 U/L (14-36); Bilirubin,Total 1.3 mg/dL (0.2-1.3); Blood Urea Nitrogen 15 mg/dL (7-17); Calcium 7.3 mg/dL (8.4-10.2); Carbon Dioxide 22 mmol/L (22-30); Chloride 98 mmol/L (98-107); Estimated CRCL calculation 26 ml/min; Estimated Glomerular Filt Rate 36; Glucose 129 mg/dL (65-110); Potassium 3.9 mmol/L (3.4-5.0); Sodium 129 mmol/L (137-145)
[2022-04-06] MEDS: RIVAROXABAN 20 MG TABLET PO (18:15)
[2022-04-06] MEDS: DONEPEZIL HCL 10 MG TABLET PO (20:26)
[2022-04-06] MEDS: MELATONIN 3 MG TABLET PO (20:26)
[2022-04-07] VITALS (12 sets, daily range): BP systolic 107–144; BP diastolic 52–66; PULSE 65–81; RESP 16–24; TEMP 36.3–37.1; O2SAT 93–100
[2022-04-07 05:08] LABS: Alanine Aminotransferase 33 U/L (6-35); Albumin Level 2.7 g/dL (3.5-5.1); Alkaline Phosphatase 125 U/L (38-126); Anion Gap 5 mmol/L (8-16); Aspartate Amino Transferase 55 U/L (14-36); Bilirubin,Total 0.7 mg/dL (0.2-1.3); Blood Urea Nitrogen 16 mg/dL (7-17); Calcium 7.7 mg/dL (8.4-10.2); Carbon Dioxide 25 mmol/L (22-30); Chloride 103 mmol/L (98-107); Estimated CRCL calculation 24 ml/min; Estimated Glomerular Filt Rate 33; Glucose 102 mg/dL (65-110); Potassium 3.2 mmol/L (3.4-5.0); Sodium 133 mmol/L (137-145)
[2022-04-07 05:13] LABS: Basophils Percent Auto 0.5 % (0.2-1.2); Eosinophils Absolute Auto 0.1 K/mm3 (0-0.3); Eosinophils Percent Auto 1.6 % (0-4.4); Hematocrit 25.7 % (37.0-47.0); Hemoglobin 8.7 g/dL (12.0-15.0); Immature Granulocyte Absolute 0.08 K/mm3 (0.00-0.031); Immature Granulocyte Percent A 1.1 % (0-0.5); Mean Corpuscular HGB Conc 33.9 g/dl (32-36); Mean Corpuscular Volume 100.4 fl (80-100); Mean Platelet Volume 10.5 fl (7.4-10.4); Monocytes Absolute Auto 0.6 K/mm3 (0.1-0.6); Monocytes Percent Auto 8.7 % (2.6-8.5); Neutrophils Absolute Auto 5.4 K/mm3 (1.3-6.7); Neutrophils Percent Auto 73.1 % (45.5-73.1); Platelet Count Result 193 k/mm3 (150-375); Red Blood Count 2.56 M/mm3 (4.2-5.4); White Blood Count 7.3 K/mm3 (4.5-10.0)
[2022-04-07 09:00] LABS: Levetiracetam Keppra 12.5 mcg/mL (6.0-46.0)
[2022-04-07] MEDS: FLUTICASONE PROPIONATE 0.05% NA SPR 16 GM BTL (*BKC) 2 SPRAY NASAL (09:03)
[2022-04-07] MEDS: PANTOPRAZOLE 40 MG TABLET PO (09:10)
[2022-04-07] MEDS: DULoxetine HCL 60 MG CAPSULE.DR PO (09:11)
[2022-04-07] MEDS: MIRABEGRON 25 MG ER TABLET PO (09:11)
[2022-04-07] MEDS: ATORVASTATIN 10 MG TABLET PO (09:11)
[2022-04-07] MEDS: levETIRAcetam 250 MG TABLET PO ×2 (09:11→20:50)
[2022-04-07] MEDS: ARIPiprazole 2 MG TABLET PO (09:12)
[2022-04-07] MEDS: lamoTRIgine 100 MG TABLET PO (09:12)
[2022-04-07] MEDS: ASPIRIN 81 MG ENTERIC TABLET PO (09:12)
[2022-04-07] MEDS: LORATADINE 10 MG TABLET PO (09:13)
[2022-04-07] MEDS: FERROUS SULFATE 324 MG TABLET PO (09:13)
[2022-04-07] MEDS: ACETAMINOPHEN 325 MG TABLET 650 MG BY MOUTH ×2 (09:14→14:38)
[2022-04-07] MEDS: DOCUSATE SODIUM 100 MG CAPSULE PO (09:14)
[2022-04-07] MEDS: MAGNESIUM OXIDE 400 MG TABLET PO (09:15)
[2022-04-07] MEDS: FAMOTIDINE 20 MG TABLET PO (09:15)
--- NOTE | 2022-04-07 09:30 | PM.IMPN ---
Progress Note: A&P Assessment and Plan (1) Sepsis: Code(s): A41.9 - Sepsis, unspecified organism Status: Acute Assessment and Plan: patient clinically improving Blood cx positive for GNB, sens pending Repeat blood cx ordered 04/06 CT abdomen and pelvis shows possible gastritis, cystitis with pyelonephritis, possible aspiration pneumonia Continue vanc and Zosyn Speech therapy consult pending for swallow eval (2) Delirium due to general medical condition: Code(s): F05 - Delirium due to known physiological condition Status: Acute Assessment and Plan: Resolved (3) Seizure disorder: Code(s): G40.909 - Epilepsy, unspecified, not intractable, without status epilepticus Status: Chronic Assessment and Plan: continue home meds continue to monitor (4) Paroxysmal atrial fibrillation: Code(s): I48.0 - Paroxysmal atrial fibrillation Status: Chronic Assessment and Plan: rate controlled anticoagulated (5) GERD (gastroesophageal reflux disease): Qualifiers: Esophagitis presence: esophagitis presence not specified Qualified Code(s): K21.9 - Gastro-esophageal reflux disease without esophagitis Code(s): K21.9 - Gastro-esophageal reflux disease without esophagitis Status: Chronic Assessment and Plan: continue PPI (6) Dementia: Qualifiers: Dementia behavioral disturbance: without behavioral disturbance Dementia type: unspecified type Qualified Code(s): F03.90 - Unspecified dementia without behavioral disturbance Code(s): F03.90 - Unspecified dementia, unspecified severity, without behavioral disturbance, psychotic disturbance, mood disturbance, and anxiety Status: Chronic Assessment and Plan: continue donepezil (7) Pyelonephritis: Code(s): N12 - Tubulo-interstitial nephritis, not specified as acute or chronic Status: Acute Assessment and Plan: patient started on vancomycin and Zosyn deescalate antibiotics as able urine culture showing kirk sens ecoli, continue zosyn for now, awaiting blood cx (8) Lung infiltrate on CT: Code(s): R91.8 - Other nonspecific abnormal finding of lung field Status: Acute Assessment and Plan: on vancomycin and Zosyn deescalate antibiotics as needed blood cx pending Plan Lower extremity pain, likely secondary to neuropathy, [place] as needed DVT prophylaxis with Xarelto GI prophylaxis with PPI Code status DNR/DNI Subjective Date/time seen: 04/07/22 09:30 Interval history: No overnight events noted. No chest pain or shortness of breath. No nausea, vomiting or diarrhea. No fevers or chills. Patient feels about the same or a little better than yesterday. Still somewhat weak, no breathing difficulty. She is complaining of continued lower extremity pain. She takes Tylenol for this at home. Review of Systems Review of Systems: 12 point review of systems was assessed and was negative except as noted in the HPI Exam Narrative: General: Appears to be alert and oriented per baseline HEENT: Atraumatic, normocephalic, mucous membranes moist CV: Regular rate and rhythm, S1, S2 Lungs: Clear to auscultation bilaterally, no rales or crackles noted, no wheezes, good air entry Abdomen: Soft, nontender, nondistended Extremities: Normal to inspection Skin: No rashes noted, no lesions or wounds seen Objective Data Vital Signs Vital Signs: Vital Signs - 24 hr 04/06/22 12:00 04/06/22 10:30 04/06/22 12:00 Temperature 97.1 F L Pulse Rate 84 81 79 Respiratory Rate 20 Blood Pressure 98/46 L Pulse Oximetry 94 Oxygen Delivery 04/06/22 14:00 04/06/22 16:00 04/06/22 16:00 Temperature 97.4 F L Pulse Rate 75 69 70 Respiratory Rate 24 H Blood Pressure 119/56 L Pulse Oximetry 96 Oxygen Delivery 04/06/22 18:00 04/06/22 20:00 04/06/22 20:00 Temperature 97.4 F L Pulse Rate 79 71 71 Respi
[2022-04-07] MEDS: POTASSIUM CHLORIDE 20 MEQ TABLET 40 MEQ PO (14:28)
[2022-04-07] MEDS: RIVAROXABAN 20 MG TABLET PO (17:56)
[2022-04-07] MEDS: DONEPEZIL HCL 10 MG TABLET PO (20:50)
[2022-04-07] MEDS: MELATONIN 3 MG TABLET PO (20:50)
[2022-04-07 22:07] LABS: Lamotrigine Lamictal 3.6 mcg/mL (4.0-18.0)
[2022-04-08] VITALS (7 sets, daily range): BP systolic 117–158; BP diastolic 44–90; PULSE 64–84; RESP 14–20; TEMP 35.9–37; O2SAT 92–99
--- NOTE | 2022-04-08 01:02 | PC.NURSE ---
This patient, Kenton Wilhelm, was transferred to [[facility]] on 04/08/22 at 0030. Personal belongings sent with patient. Report given to [CATRINA Carrero]. Appropriate documentation sent with patient.
[2022-04-08] MEDS: ACETAMINOPHEN 325 MG TABLET 650 MG BY MOUTH (01:33)
[2022-04-08 07:04] LABS: Basophils Percent Auto 0.3 % (0.2-1.2); Eosinophils Absolute Auto 0.2 K/mm3 (0-0.3); Hematocrit 25.6 % (37.0-47.0); Hemoglobin 8.7 g/dL (12.0-15.0); Immature Granulocyte Absolute 0.08 K/mm3 (0.00-0.031); Lymphocytes Absolute Auto 1.53 K/mm3 (0.9-3.2); Lymphocytes Percent Auto 19.7 % (18.3-44.2); Mean Corpuscular Hemoglobin 33.1 pg (26-34); Mean Corpuscular Volume 97.3 fl (80-100); Mean Platelet Volume 10.1 fl (7.4-10.4); Monocytes Absolute Auto 0.5 K/mm3 (0.1-0.6); Monocytes Percent Auto 5.8 % (2.6-8.5); Neutrophils Absolute Auto 5.5 K/mm3 (1.3-6.7); Neutrophils Percent Auto 70.2 % (45.5-73.1); Nucleated Red Blood Cells Perc 0.3 % (0.0-0.2); Platelet Count Result 259 k/mm3 (150-375); Red Blood Count 2.63 M/mm3 (4.2-5.4); Red Cell Distribution Width 14.1 % (11.5-14.5); White Blood Count 7.8 K/mm3 (4.5-10.0)
[2022-04-08 07:18] LABS: Alanine Aminotransferase 41 U/L (6-35); Albumin Level 2.9 g/dL (3.5-5.1); Alkaline Phosphatase 191 U/L (38-126); Anion Gap 5 mmol/L (8-16); Aspartate Amino Transferase 56 U/L (14-36); Bilirubin,Total 0.6 mg/dL (0.2-1.3); Blood Urea Nitrogen 16 mg/dL (7-17); Calcium 7.9 mg/dL (8.4-10.2); Carbon Dioxide 23 mmol/L (22-30); Chloride 104 mmol/L (98-107); Estimated CRCL calculation 27 ml/min; Estimated Glomerular Filt Rate 36; Glucose 91 mg/dL (65-110); Potassium 3.7 mmol/L (3.4-5.0); Sodium 132 mmol/L (137-145)
[2022-04-08 08:23] LABS: Glucose Point of Care 98 mg/dl (65-105)
[2022-04-08] MEDS: FERROUS SULFATE 324 MG TABLET PO (09:50)
[2022-04-08] MEDS: ARIPiprazole 2 MG TABLET PO (09:50)
[2022-04-08] MEDS: ASPIRIN 81 MG ENTERIC TABLET PO (09:50)
[2022-04-08] MEDS: ATORVASTATIN 10 MG TABLET PO (09:50)
[2022-04-08] MEDS: levETIRAcetam 250 MG TABLET PO ×2 (09:51→20:37)
[2022-04-08] MEDS: FAMOTIDINE 20 MG TABLET PO (09:51)
[2022-04-08] MEDS: DOCUSATE SODIUM 100 MG CAPSULE PO (09:51)
[2022-04-08] MEDS: DULoxetine HCL 60 MG CAPSULE.DR PO (09:51)
[2022-04-08] MEDS: lamoTRIgine 100 MG TABLET PO (09:51)
[2022-04-08] MEDS: FLUTICASONE PROPIONATE 0.05% NA SPR 16 GM BTL (*BKC) 2 SPRAY NASAL (09:52)
[2022-04-08] MEDS: LORATADINE 10 MG TABLET PO (09:52)
[2022-04-08] MEDS: MAGNESIUM OXIDE 400 MG TABLET PO (09:52)
[2022-04-08] MEDS: MIRABEGRON 25 MG ER TABLET PO (09:52)
[2022-04-08] MEDS: PANTOPRAZOLE 40 MG TABLET PO (09:52)
[2022-04-08 11:52] LABS: Glucose Point of Care 80 mg/dl (65-105)
--- NOTE | 2022-04-08 14:24 | PM.IMPN ---
Progress Note: A&P Assessment and Plan (1) Sepsis: Code(s): A41.9 - Sepsis, unspecified organism Status: Acute Assessment and Plan: patient clinically improving Blood cx positive for GNB, sens pending Repeat blood cx ordered 04/06 CT abdomen and pelvis shows possible gastritis, cystitis with pyelonephritis, possible aspiration pneumonia Continue vanc and Zosyn Speech therapy consult pending for swallow eval (2) Delirium due to general medical condition: Code(s): F05 - Delirium due to known physiological condition Status: Acute Assessment and Plan: Resolved (3) Seizure disorder: Code(s): G40.909 - Epilepsy, unspecified, not intractable, without status epilepticus Status: Chronic Assessment and Plan: continue home meds continue to monitor (4) Paroxysmal atrial fibrillation: Code(s): I48.0 - Paroxysmal atrial fibrillation Status: Chronic Assessment and Plan: rate controlled anticoagulated (5) GERD (gastroesophageal reflux disease): Qualifiers: Esophagitis presence: esophagitis presence not specified Qualified Code(s): K21.9 - Gastro-esophageal reflux disease without esophagitis Code(s): K21.9 - Gastro-esophageal reflux disease without esophagitis Status: Chronic Assessment and Plan: continue PPI (6) Dementia: Qualifiers: Dementia type: unspecified type Dementia behavioral disturbance: without behavioral disturbance Qualified Code(s): F03.90 - Unspecified dementia without behavioral disturbance Code(s): F03.90 - Unspecified dementia, unspecified severity, without behavioral disturbance, psychotic disturbance, mood disturbance, and anxiety Status: Chronic Assessment and Plan: continue donepezil (7) Pyelonephritis: Code(s): N12 - Tubulo-interstitial nephritis, not specified as acute or chronic Status: Acute Assessment and Plan: patient started on vancomycin and Zosyn deescalate antibiotics as able urine culture showing kirk sens ecoli, continue zosyn for now, awaiting blood cx (8) Lung infiltrate on CT: Code(s): R91.8 - Other nonspecific abnormal finding of lung field Status: Acute Assessment and Plan: on vancomycin and Zosyn deescalate antibiotics as needed blood cx pending Plan Lower extremity pain, likely secondary to neuropathy, [place] as needed DVT prophylaxis with Xarelto GI prophylaxis with PPI Code status DNR/DNI Subjective Date/time seen: 04/08/22 14:24 Patient was seen during the morning rounds today. Patient is feeling slightly better. Decreased shortness of breath. No chest pain. No abdominal pain. Mood stable. Review of Systems Review of Systems: All systems reviewed & are unremarkable except as noted in HPI and below (the history and physical examination.) ROS unobtainable: Yes unobtainable due to mental status ( Obtundation, lethargy) Exam Narrative: General: Appears to be alert and oriented per baseline HEENT: Atraumatic, normocephalic, mucous membranes moist CV: Regular rate and rhythm, S1, S2 Lungs: Clear to auscultation bilaterally, no rales or crackles noted, no wheezes, good air entry Abdomen: Soft, nontender, nondistended Extremities: Normal to inspection Skin: No rashes noted, no lesions or wounds seen Const: General: comfortable, no acute distress, well developed, ill appearing acutely, lethargic, patient obtunded and average body habitus Nutritional Appearance: average body habitus Orientation/consciousness: patient obtunded and lethargic HENMT: Head: normal to inspection, normocephalic and atraumatic Ears: hearing grossly normal bilaterally Face/Nose/Sinus: normal facial exam Face and sinus: normal facial exam Eyes: General: appearance normal, both eyes and all related structures Pupils: Equal, round and reactive pupils present EOM: EOMs intact bilaterally Neck: Neck: full ROM, no lymp
[2022-04-08 16:32] LABS: Glucose Point of Care 116 mg/dl (65-105)
[2022-04-08] MEDS: RIVAROXABAN 20 MG TABLET PO (17:01)
[2022-04-08] MEDS: MELATONIN 3 MG TABLET PO (20:37)
[2022-04-08] MEDS: DONEPEZIL HCL 10 MG TABLET PO (20:37)
[2022-04-08] MEDS: HYDROcodone/acetaminophen (*CRX) 5-325 MG TABLET 1 TAB PO (20:44)
[2022-04-09] VITALS (8 sets, daily range): BP systolic 143–170; BP diastolic 53–60; PULSE 65–80; RESP 12–18; TEMP 36.2–37.3; O2SAT 95–97
[2022-04-09 07:35] LABS: Basophils Percent Auto 0.2 % (0.2-1.2); Eosinophils Absolute Auto 0.3 K/mm3 (0-0.3); Eosinophils Percent Auto 3.1 % (0-4.4); Hematocrit 30.1 % (37.0-47.0); Hemoglobin 9.7 g/dL (12.0-15.0); Immature Granulocyte Absolute 0.12 K/mm3 (0.00-0.031); Immature Granulocyte Percent A 1.4 % (0-0.5); Lymphocytes Absolute Auto 1.55 K/mm3 (0.9-3.2); Mean Corpuscular HGB Conc 32.2 g/dl (32-36); Mean Corpuscular Hemoglobin 32.8 pg (26-34); Mean Corpuscular Volume 101.7 fl (80-100); Monocytes Absolute Auto 0.5 K/mm3 (0.1-0.6); Monocytes Percent Auto 5.8 % (2.6-8.5); Neutrophils Absolute Auto 6.2 K/mm3 (1.3-6.7); Neutrophils Percent Auto 71.5 % (45.5-73.1); Platelet Count Result 307 k/mm3 (150-375); Red Blood Count 2.96 M/mm3 (4.2-5.4); Red Cell Distribution Width 14.5 % (11.5-14.5); White Blood Count 8.6 K/mm3 (4.5-10.0)
[2022-04-09 07:40] LABS: Alanine Aminotransferase 37 U/L (6-35); Alkaline Phosphatase 198 U/L (38-126); Anion Gap 4 mmol/L (8-16); Aspartate Amino Transferase 45 U/L (14-36); Bilirubin,Total 0.5 mg/dL (0.2-1.3); Blood Urea Nitrogen 13 mg/dL (7-17); Calcium 8.1 mg/dL (8.4-10.2); Carbon Dioxide 26 mmol/L (22-30); Chloride 103 mmol/L (98-107); Estimated CRCL calculation 31 ml/min; Estimated Glomerular Filt Rate 43; Glucose 93 mg/dL (65-110); Potassium 3.6 mmol/L (3.4-5.0); Sodium 133 mmol/L (137-145)
[2022-04-09] MEDS: lamoTRIgine 100 MG TABLET PO (08:34)
[2022-04-09] MEDS: ARIPiprazole 2 MG TABLET PO (08:34)
[2022-04-09] MEDS: DULoxetine HCL 60 MG CAPSULE.DR PO (08:35)
[2022-04-09] MEDS: levETIRAcetam 250 MG TABLET PO ×2 (08:35→20:28)
[2022-04-09] MEDS: PANTOPRAZOLE 40 MG TABLET PO (08:35)
[2022-04-09] MEDS: MIRABEGRON 25 MG ER TABLET PO (08:35)
[2022-04-09] MEDS: ASPIRIN 81 MG ENTERIC TABLET PO (08:35)
[2022-04-09] MEDS: FERROUS SULFATE 324 MG TABLET PO (08:35)
[2022-04-09] MEDS: MAGNESIUM OXIDE 400 MG TABLET PO (08:35)
[2022-04-09] MEDS: DOCUSATE SODIUM 100 MG CAPSULE PO (08:35)
[2022-04-09] MEDS: ATORVASTATIN 10 MG TABLET PO (08:35)
[2022-04-09] MEDS: FAMOTIDINE 20 MG TABLET PO (08:35)
[2022-04-09] MEDS: LORATADINE 10 MG TABLET PO (08:35)
[2022-04-09] MEDS: FLUTICASONE PROPIONATE 0.05% NA SPR 16 GM BTL (*BKC) 2 SPRAY NASAL (08:42)
--- NOTE | 2022-04-09 09:52 | PM.IMPN ---
Progress Note: A&P Assessment and Plan (1) Sepsis: Code(s): A41.9 - Sepsis, unspecified organism Status: Acute Assessment and Plan: patient clinically improving Blood cx positive for GNB, sens pending Repeat blood cx ordered 04/06 CT abdomen and pelvis shows possible gastritis, cystitis with pyelonephritis, possible aspiration pneumonia Continue vanc and Zosyn Speech therapy consult pending for swallow eval (2) Delirium due to general medical condition: Code(s): F05 - Delirium due to known physiological condition Status: Acute Assessment and Plan: Resolved (3) Seizure disorder: Code(s): G40.909 - Epilepsy, unspecified, not intractable, without status epilepticus Status: Chronic Assessment and Plan: continue home meds continue to monitor (4) Paroxysmal atrial fibrillation: Code(s): I48.0 - Paroxysmal atrial fibrillation Status: Chronic Assessment and Plan: rate controlled anticoagulated (5) GERD (gastroesophageal reflux disease): Qualifiers: Esophagitis presence: esophagitis presence not specified Qualified Code(s): K21.9 - Gastro-esophageal reflux disease without esophagitis Code(s): K21.9 - Gastro-esophageal reflux disease without esophagitis Status: Chronic Assessment and Plan: continue PPI (6) Dementia: Qualifiers: Dementia type: unspecified type Dementia behavioral disturbance: without behavioral disturbance Qualified Code(s): F03.90 - Unspecified dementia without behavioral disturbance Code(s): F03.90 - Unspecified dementia, unspecified severity, without behavioral disturbance, psychotic disturbance, mood disturbance, and anxiety Status: Chronic Assessment and Plan: continue donepezil (7) Pyelonephritis: Code(s): N12 - Tubulo-interstitial nephritis, not specified as acute or chronic Status: Acute Assessment and Plan: patient started on vancomycin and Zosyn deescalate antibiotics as able urine culture showing kirk sens ecoli, continue zosyn for now, awaiting blood cx (8) Lung infiltrate on CT: Code(s): R91.8 - Other nonspecific abnormal finding of lung field Status: Acute Assessment and Plan: on vancomycin and Zosyn deescalate antibiotics as needed blood cx pending Plan Lower extremity pain, likely secondary to neuropathy, [place] as needed DVT prophylaxis with Xarelto GI prophylaxis with PPI Code status DNR/DNI Subjective Date/time seen: 04/09/22 09:52 Patient was seen during the morning rounds today. Feeling slightly better. No sob or chest pain. No abdominal pain. Review of Systems Review of Systems: All systems reviewed & are unremarkable except as noted in HPI and below (the history and physical examination.) ROS unobtainable: Yes unobtainable due to mental status ( Obtundation, lethargy) Exam Narrative: General: Appears to be alert and oriented per baseline HEENT: Atraumatic, normocephalic, mucous membranes moist CV: Regular rate and rhythm, S1, S2 Lungs: Clear to auscultation bilaterally, no rales or crackles noted, no wheezes, good air entry Abdomen: Soft, nontender, nondistended Extremities: Normal to inspection Skin: No rashes noted, no lesions or wounds seen Const: General: comfortable, no acute distress, well developed, ill appearing acutely, lethargic, patient obtunded and average body habitus Nutritional Appearance: average body habitus Orientation/consciousness: patient obtunded and lethargic HENMT: Head: normal to inspection, normocephalic and atraumatic Ears: hearing grossly normal bilaterally Face/Nose/Sinus: normal facial exam Face and sinus: normal facial exam Eyes: General: appearance normal, both eyes and all related structures Pupils: Equal, round and reactive pupils present EOM: EOMs intact bilaterally Neck: Neck: full ROM, no lymphadenopathy and no JVD Thyroid: thyroid normal
[2022-04-09 15:03] LABS: HAV RESULT Negative (Negative); Hepatitis B Surface Antigen Negative (Negative)
[2022-04-09 15:12] LABS: Hepatitis C Virus Antibody Negative (Negative)
[2022-04-09] MEDS: RIVAROXABAN 20 MG TABLET PO (16:53)
[2022-04-09 19:35] LABS: Hepatitis B Core IgM Result Negative (Negative)
[2022-04-09] MEDS: DONEPEZIL HCL 10 MG TABLET PO (20:28)
[2022-04-09] MEDS: MELATONIN 3 MG TABLET PO (20:29)
[2022-04-09] MEDS: HYDROcodone/acetaminophen (*CRX) 5-325 MG TABLET 1 TAB PO (20:31)
[2022-04-10] VITALS (9 sets, daily range): BP systolic 154–172; BP diastolic 63–64; PULSE 62–75; RESP 14–16; TEMP 36.1–36.9; O2SAT 95–96
[2022-04-10] MEDS: levETIRAcetam 250 MG TABLET PO ×2 (07:54→21:06)
[2022-04-10] MEDS: ASPIRIN 81 MG ENTERIC TABLET PO (07:54)
[2022-04-10] MEDS: FAMOTIDINE 20 MG TABLET PO (07:54)
[2022-04-10] MEDS: MAGNESIUM OXIDE 400 MG TABLET PO (07:54)
[2022-04-10] MEDS: MIRABEGRON 25 MG ER TABLET PO (07:54)
[2022-04-10] MEDS: DOCUSATE SODIUM 100 MG CAPSULE PO (07:54)
[2022-04-10] MEDS: lamoTRIgine 100 MG TABLET PO (07:54)
[2022-04-10] MEDS: DULoxetine HCL 60 MG CAPSULE.DR PO (07:54)
[2022-04-10] MEDS: ATORVASTATIN 10 MG TABLET PO (07:55)
[2022-04-10] MEDS: LORATADINE 10 MG TABLET PO (07:55)
[2022-04-10] MEDS: FLUTICASONE PROPIONATE 0.05% NA SPR 16 GM BTL (*BKC) 2 SPRAY NASAL (07:55)
[2022-04-10] MEDS: ARIPiprazole 2 MG TABLET PO (07:55)
[2022-04-10] MEDS: FERROUS SULFATE 324 MG TABLET PO (07:55)
[2022-04-10] MEDS: PANTOPRAZOLE 40 MG TABLET PO (07:55)
[2022-04-10 08:17] LABS: Alanine Aminotransferase 34 U/L (6-35); Albumin Level 3.1 g/dL (3.5-5.1); Alkaline Phosphatase 159 U/L (38-126); Anion Gap 5 mmol/L (8-16); Aspartate Amino Transferase 42 U/L (14-36); Bilirubin,Total 0.6 mg/dL (0.2-1.3); Blood Urea Nitrogen 11 mg/dL (7-17); Calcium 8.3 mg/dL (8.4-10.2); Carbon Dioxide 28 mmol/L (22-30); Chloride 100 mmol/L (98-107); Estimated CRCL calculation 31 ml/min; Estimated Glomerular Filt Rate 43; Glucose 97 mg/dL (65-110); INR 2.1; Potassium 3.6 mmol/L (3.4-5.0); Prothrombin Time 22.5 Seconds (11.1-14.7); Sodium 133 mmol/L (137-145)
[2022-04-10 08:20] LABS: Basophils Absolute Auto 0.1 K/mm3 (0.0-0.1); Basophils Percent Auto 0.6 % (0.2-1.2); Eosinophils Absolute Auto 0.2 K/mm3 (0-0.3); Eosinophils Percent Auto 2.8 % (0-4.4); Hematocrit 28.4 % (37.0-47.0); Hemoglobin 9.2 g/dL (12.0-15.0); Immature Granulocyte Absolute 0.12 K/mm3 (0.00-0.031); Immature Granulocyte Percent A 1.4 % (0-0.5); Lymphocytes Absolute Auto 1.42 K/mm3 (0.9-3.2); Lymphocytes Percent Auto 16.4 % (18.3-44.2); Mean Corpuscular HGB Conc 32.4 g/dl (32-36); Mean Corpuscular Hemoglobin 33.6 pg (26-34); Mean Corpuscular Volume 103.6 fl (80-100); Monocytes Absolute Auto 0.4 K/mm3 (0.1-0.6); Monocytes Percent Auto 4.7 % (2.6-8.5); Neutrophils Absolute Auto 6.4 K/mm3 (1.3-6.7); Neutrophils Percent Auto 74.1 % (45.5-73.1); Platelet Count Result 376 k/mm3 (150-375); Red Blood Count 2.74 M/mm3 (4.2-5.4); Red Cell Distribution Width 14.6 % (11.5-14.5); White Blood Count 8.7 K/mm3 (4.5-10.0)
--- NOTE | 2022-04-10 11:58 | PCOTNOTE ---
Attempted to see patient, patient reported I can't do therapy today. patient unable to stay awake and declined ADLs and UE exercises. Patient requested therapist try tomorrow. Will continue plan of care for OT.
--- NOTE | 2022-04-10 13:52 | PM.IMPN ---
Progress Note: A&P Assessment and Plan (1) Sepsis: Code(s): A41.9 - Sepsis, unspecified organism Status: Acute Assessment and Plan: patient clinically improving Blood cx positive for GNB, sens pending Repeat blood cx ordered 04/06 CT abdomen and pelvis shows possible gastritis, cystitis with pyelonephritis, possible aspiration pneumonia Continue vanc and Zosyn Speech therapy consult pending for swallow eval (2) Delirium due to general medical condition: Code(s): F05 - Delirium due to known physiological condition Status: Acute Assessment and Plan: Resolved CT head on admission 04/04/2020 2- (3) Seizure disorder: Code(s): G40.909 - Epilepsy, unspecified, not intractable, without status epilepticus Status: Chronic Assessment and Plan: continue home meds continue to monitor (4) Paroxysmal atrial fibrillation: Code(s): I48.0 - Paroxysmal atrial fibrillation Status: Chronic Assessment and Plan: rate controlled anticoagulated (5) GERD (gastroesophageal reflux disease): Qualifiers: Esophagitis presence: esophagitis presence not specified Qualified Code(s): K21.9 - Gastro-esophageal reflux disease without esophagitis Code(s): K21.9 - Gastro-esophageal reflux disease without esophagitis Status: Chronic Assessment and Plan: continue PPI (6) Dementia: Qualifiers: Dementia type: unspecified type Dementia behavioral disturbance: without behavioral disturbance Qualified Code(s): F03.90 - Unspecified dementia without behavioral disturbance Code(s): F03.90 - Unspecified dementia, unspecified severity, without behavioral disturbance, psychotic disturbance, mood disturbance, and anxiety Status: Chronic Assessment and Plan: continue donepezil (7) Pyelonephritis: Code(s): N12 - Tubulo-interstitial nephritis, not specified as acute or chronic Status: Acute Assessment and Plan: patient started on vancomycin and Zosyn deescalate antibiotics as able urine culture showing kirk sens ecoli, continue zosyn for now, a blood culture positive for E coli 04/04/2022 pansensitive repeat blood culture 04/06/2020 2- to date Vancomycin has since stopped. Will change Zosyn to ceftriaxone. Ten days from 04/06/2022. Six more days left (8) Lung infiltrate on CT: Code(s): R91.8 - Other nonspecific abnormal finding of lung field Status: Acute Assessment and Plan: on vancomycin and Zosyn deescalate antibiotics as needed blood cx with E coli as noted above Plan # generalised deconditioning: flavio from recent illness. will have pt ot to see. Lower extremity pain, likely secondary to neuropathy, [place] as needed large hiatal hernia Mildly elevated liver enzymes no biliary duct dilatation ultrasound right upper quadrant negative Bilateral pyelonephritis DVT prophylaxis with Xarelto GI prophylaxis with PPI Code status DNR/DNI Subjective Date/time seen: 04/10/22 13:52 Interval history: no overnight events. family at bedside. she reports left leg is difficult to move and hurts when she moves. she worked with [employer] yeserday. no fever, chlls Review of Systems Review of Systems: All systems reviewed & are unremarkable except as noted in HPI and below (the history and physical examination.) Exam Narrative: General: Appears to be alert and oriented per baseline HEENT: Atraumatic, normocephalic, mucous membranes moist CV: Regular rate and rhythm, S1, S2 Lungs: Clear to auscultation bilaterally, no rales or crackles noted, no wheezes, good air entry Abdomen: Soft, nontender, nondistended Extremities: Normal to inspection, bruises noted. lwoer extremity weakness noted Skin: No rashes noted, no lesions or wounds seen Objective Data Vital Signs Vital Signs: Vital Signs - 24 hr 04/09/22 16:00 04/09/22 14:00 04/09/22 20:00 Temperature 97.8 F Pulse Rate 70 8
[2022-04-10] MEDS: HYDROcodone/acetaminophen (*CRX) 5-325 MG TABLET 1 TAB PO ×2 (15:05→21:14)
[2022-04-10] MEDS: RIVAROXABAN 20 MG TABLET PO (16:09)
[2022-04-10] MEDS: DONEPEZIL HCL 10 MG TABLET PO (21:06)
[2022-04-10] MEDS: MELATONIN 3 MG TABLET PO (21:07)
[2022-04-11] VITALS (9 sets, daily range): BP systolic 139–158; BP diastolic 53–68; PULSE 61–79; RESP 18; TEMP 36.1–36.6; O2SAT 97–99; BMI 29.9
[2022-04-11 04:42] LABS: Basophils Percent Auto 0.4 % (0.2-1.2); Eosinophils Absolute Auto 0.3 K/mm3 (0-0.3); Eosinophils Percent Auto 3.9 % (0-4.4); Hematocrit 28.5 % (37.0-47.0); Hemoglobin 9.3 g/dL (12.0-15.0); Immature Granulocyte Absolute 0.12 K/mm3 (0.00-0.031); Immature Granulocyte Percent A 1.4 % (0-0.5); Lymphocytes Percent Auto 17.8 % (18.3-44.2); Mean Corpuscular HGB Conc 32.6 g/dl (32-36); Mean Corpuscular Volume 101.1 fl (80-100); Mean Platelet Volume 9.7 fl (7.4-10.4); Monocytes Absolute Auto 0.5 K/mm3 (0.1-0.6); Monocytes Percent Auto 5.6 % (2.6-8.5); Neutrophils Percent Auto 70.9 % (45.5-73.1); Platelet Count Result 379 k/mm3 (150-375); Red Blood Count 2.82 M/mm3 (4.2-5.4); Red Cell Distribution Width 14.6 % (11.5-14.5); White Blood Count 8.4 K/mm3 (4.5-10.0)
[2022-04-11 05:01] LABS: Alanine Aminotransferase 29 U/L (6-35); Albumin Level 3.2 g/dL (3.5-5.1); Alkaline Phosphatase 126 U/L (38-126); Anion Gap 5 mmol/L (8-16); Aspartate Amino Transferase 38 U/L (14-36); Bilirubin,Total 0.6 mg/dL (0.2-1.3); Blood Urea Nitrogen 10 mg/dL (7-17); Calcium 8.2 mg/dL (8.4-10.2); Carbon Dioxide 27 mmol/L (22-30); Chloride 100 mmol/L (98-107); Estimated CRCL calculation 41 ml/min; Estimated Glomerular Filt Rate 60; Glucose 89 mg/dL (65-110); Potassium 3.6 mmol/L (3.4-5.0); Sodium 132 mmol/L (137-145)
[2022-04-11] MEDS: DULoxetine HCL 60 MG CAPSULE.DR PO (08:28)
[2022-04-11] MEDS: FAMOTIDINE 20 MG TABLET PO (08:28)
[2022-04-11] MEDS: FERROUS SULFATE 324 MG TABLET PO (08:28)
[2022-04-11] MEDS: LORATADINE 10 MG TABLET PO (08:28)
[2022-04-11] MEDS: PANTOPRAZOLE 40 MG TABLET PO (08:28)
[2022-04-11] MEDS: ATORVASTATIN 10 MG TABLET PO (08:28)
[2022-04-11] MEDS: lamoTRIgine 100 MG TABLET PO (08:28)
[2022-04-11] MEDS: ASPIRIN 81 MG ENTERIC TABLET PO (08:28)
[2022-04-11] MEDS: ARIPiprazole 2 MG TABLET PO (08:28)
[2022-04-11] MEDS: DOCUSATE SODIUM 100 MG CAPSULE PO (08:28)
[2022-04-11] MEDS: FLUTICASONE PROPIONATE 0.05% NA SPR 16 GM BTL (*BKC) 2 SPRAY NASAL (08:29)
[2022-04-11] MEDS: MAGNESIUM OXIDE 400 MG TABLET PO (08:29)
[2022-04-11] MEDS: levETIRAcetam 250 MG TABLET PO ×2 (08:29→20:01)
[2022-04-11] MEDS: MIRABEGRON 25 MG ER TABLET PO (08:29)
--- NOTE | 2022-04-11 16:06 | PM.IMPN ---
Progress Note: A&P Assessment and Plan (1) Sepsis: Code(s): A41.9 - Sepsis, unspecified organism Status: Acute Assessment and Plan: patient clinically improving Blood cx positive for GNB, sens pending Repeat blood cx ordered 04/06 CT abdomen and pelvis shows possible gastritis, cystitis with pyelonephritis, possible aspiration pneumonia Continue vanc and Zosyn Speech therapy consulted (2) Delirium due to general medical condition: Code(s): F05 - Delirium due to known physiological condition Status: Acute Assessment and Plan: Resolved CT head on admission 04/04/2022 (3) Seizure disorder: Code(s): G40.909 - Epilepsy, unspecified, not intractable, without status epilepticus Status: Chronic Assessment and Plan: continue home meds continue to monitor (4) Paroxysmal atrial fibrillation: Code(s): I48.0 - Paroxysmal atrial fibrillation Status: Chronic Assessment and Plan: rate controlled anticoagulated (5) GERD (gastroesophageal reflux disease): Qualifiers: Esophagitis presence: esophagitis presence not specified Qualified Code(s): K21.9 - Gastro-esophageal reflux disease without esophagitis Code(s): K21.9 - Gastro-esophageal reflux disease without esophagitis Status: Chronic Assessment and Plan: continue PPI (6) Dementia: Qualifiers: Dementia type: unspecified type Dementia behavioral disturbance: without behavioral disturbance Qualified Code(s): F03.90 - Unspecified dementia without behavioral disturbance Code(s): F03.90 - Unspecified dementia, unspecified severity, without behavioral disturbance, psychotic disturbance, mood disturbance, and anxiety Status: Chronic Assessment and Plan: continue donepezil (7) Pyelonephritis: Code(s): N12 - Tubulo-interstitial nephritis, not specified as acute or chronic Status: Acute Assessment and Plan: patient started on vancomycin and Zosyn deescalate antibiotics as able urine culture showing kirk sens ecoli, continue zosyn for now, a blood culture positive for E coli 04/04/2022 pansensitive repeat blood culture 04/06/2020 2- to date Vancomycin has since stopped. Will change Zosyn to ceftriaxone. Ten days from 04/06/2022. 5 more days left (8) Lung infiltrate on CT: Code(s): R91.8 - Other nonspecific abnormal finding of lung field Status: Acute Assessment and Plan: on vancomycin and Zosyn deescalate antibiotics as needed blood cx with E coli as noted above Plan # generalised deconditioning: flavio from recent illness. will have pt ot to see. Lower extremity pain, likely secondary to neuropathy, [place] as neededUnsure the lower extremity weakness is related to pain or not. Will get CT lumbar spine to further evaluate large hiatal hernia Mildly elevated liver enzymes no biliary duct dilatation ultrasound right upper quadrant negative Bilateral pyelonephritis DVT prophylaxis with Xarelto GI prophylaxis with PPI Code status DNR/DNI Subjective Date/time seen: 04/11/22 16:06 Interval history: Continues to have generalized weakness. Confusion persists on and off. No other new complaints. Discussed with the nursing staff. She got up with Bonny Horne this morning. Review of Systems Review of Systems: All systems reviewed & are unremarkable except as noted in HPI and below (the history and physical examination.) Exam Narrative: General: Appears to be alert and oriented per baseline HEENT: Atraumatic, normocephalic, mucous membranes moist CV: Regular rate and rhythm, S1, S2 Lungs: Clear to auscultation bilaterally, no rales or crackles noted, no wheezes, good air entry Abdomen: Soft, nontender, nondistended Extremities: Normal to inspection, bruises noted. lwoer extremity weakness noted Skin: No rashes noted, no lesions or wounds seen Objective Data Vital Signs Vital Signs: Vital Sign
[2022-04-11] MEDS: RIVAROXABAN 20 MG TABLET PO (16:07)
--- NOTE | 2022-04-11 17:03 | PM.IMPN ---
Progress Note: A&P Assessment and Plan (1) Sepsis: Code(s): A41.9 - Sepsis, unspecified organism Status: Acute Assessment and Plan: patient clinically improving Blood cx positive for GNB, sens pending Repeat blood cx ordered 04/06 CT abdomen and pelvis shows possible gastritis, cystitis with pyelonephritis, possible aspiration pneumonia Continue vanc and Zosyn Speech therapy consulted (2) Delirium due to general medical condition: Code(s): F05 - Delirium due to known physiological condition Status: Acute Assessment and Plan: Resolved CT head on admission 04/04/2022 (3) Seizure disorder: Code(s): G40.909 - Epilepsy, unspecified, not intractable, without status epilepticus Status: Chronic Assessment and Plan: continue home meds continue to monitor (4) Paroxysmal atrial fibrillation: Code(s): I48.0 - Paroxysmal atrial fibrillation Status: Chronic Assessment and Plan: rate controlled anticoagulated (5) GERD (gastroesophageal reflux disease): Qualifiers: Esophagitis presence: esophagitis presence not specified Qualified Code(s): K21.9 - Gastro-esophageal reflux disease without esophagitis Code(s): K21.9 - Gastro-esophageal reflux disease without esophagitis Status: Chronic Assessment and Plan: continue PPI (6) Dementia: Qualifiers: Dementia type: unspecified type Dementia behavioral disturbance: without behavioral disturbance Qualified Code(s): F03.90 - Unspecified dementia without behavioral disturbance Code(s): F03.90 - Unspecified dementia, unspecified severity, without behavioral disturbance, psychotic disturbance, mood disturbance, and anxiety Status: Chronic Assessment and Plan: continue donepezil (7) Pyelonephritis: Code(s): N12 - Tubulo-interstitial nephritis, not specified as acute or chronic Status: Acute Assessment and Plan: patient started on vancomycin and Zosyn deescalate antibiotics as able urine culture showing kirk sens ecoli, continue zosyn for now, a blood culture positive for E coli 04/04/2022 pansensitive repeat blood culture 04/06/2020 2- to date Vancomycin has since stopped. Will change Zosyn to ceftriaxone. Ten days from 04/06/2022. 4 more days left. Ceftriaxone to 2 g IV daily (8) Lung infiltrate on CT: Code(s): R91.8 - Other nonspecific abnormal finding of lung field Status: Acute Assessment and Plan: on vancomycin and Zosyn deescalate antibiotics as needed blood cx with E coli as noted above Plan # generalised deconditioning: flavio from recent illness. PT OT to see #Lower extremity pain, likely secondary to neuropathy, [place] as neededUnsure the lower extremity weakness is related to pain or not. CT lumbar spine reviewed. Will further evaluate with neurological consultation # large hiatal hernia #Mildly elevated liver enzymes no biliary duct dilatation ultrasound right upper quadrant negative #Bilateral pyelonephritis #DVT prophylaxis with Xarelto #GI prophylaxis with PPI #Code status DNR/DNI Subjective Date/time seen: 04/11/22 17:03 Interval history: no new complaint. Feels weak. Cannot lift up both the legs. She complains of hurting in both the legs and not able to lift Up. Review of Systems Review of Systems: All systems reviewed & are unremarkable except as noted in HPI and below (the history and physical examination.) Exam Narrative: General: Appears to be alert and oriented per baseline HEENT: Atraumatic, normocephalic, mucous membranes moist CV: Regular rate and rhythm, S1, S2 Lungs: Clear to auscultation bilaterally, no rales or crackles noted, no wheezes, good air entry Abdomen: Soft, nontender, nondistended Extremities: Normal to inspection, bruises noted. lwoer extremity weakness noted Cannot lift legs up off the bed Skin: No rashes noted, no lesions or wounds seen
[2022-04-11] MEDS: DONEPEZIL HCL 10 MG TABLET PO (20:01)
[2022-04-11] MEDS: MELATONIN 3 MG TABLET PO (20:01)
[2022-04-11] MEDS: ACETAMINOPHEN 325 MG TABLET 650 MG BY MOUTH (21:41)
[2022-04-12] VITALS (10 sets, daily range): BP systolic 122–160; BP diastolic 47–86; PULSE 69–98; RESP 14–18; TEMP 36.1–36.7; O2SAT 93–97
[2022-04-12 06:52] LABS: Basophils Percent Auto 0.4 % (0.2-1.2); Eosinophils Absolute Auto 0.2 K/mm3 (0-0.3); Eosinophils Percent Auto 2.6 % (0-4.4); Hemoglobin 9.4 g/dL (12.0-15.0); Immature Granulocyte Absolute 0.08 K/mm3 (0.00-0.031); Lymphocytes Absolute Auto 1.55 K/mm3 (0.9-3.2); Lymphocytes Percent Auto 19.3 % (18.3-44.2); Mean Corpuscular HGB Conc 32.4 g/dl (32-36); Mean Corpuscular Hemoglobin 33.5 pg (26-34); Mean Corpuscular Volume 103.2 fl (80-100); Mean Platelet Volume 9.7 fl (7.4-10.4); Monocytes Absolute Auto 0.4 K/mm3 (0.1-0.6); Monocytes Percent Auto 4.3 % (2.6-8.5); Neutrophils Absolute Auto 5.8 K/mm3 (1.3-6.7); Neutrophils Percent Auto 72.4 % (45.5-73.1); Platelet Count Result 476 k/mm3 (150-375); Red Blood Count 2.81 M/mm3 (4.2-5.4); Red Cell Distribution Width 14.5 % (11.5-14.5); White Blood Count 8.1 K/mm3 (4.5-10.0)
[2022-04-12 07:05] LABS: Alanine Aminotransferase 31 U/L (6-35); Albumin Level 3.5 g/dL (3.5-5.1); Alkaline Phosphatase 121 U/L (38-126); Anion Gap 7 mmol/L (8-16); Aspartate Amino Transferase 45 U/L (14-36); Bilirubin,Total 0.8 mg/dL (0.2-1.3); Blood Urea Nitrogen 11 mg/dL (7-17); Calcium 8.2 mg/dL (8.4-10.2); Carbon Dioxide 27 mmol/L (22-30); Chloride 102 mmol/L (98-107); Estimated CRCL calculation 41 ml/min; Estimated Glomerular Filt Rate 60; Glucose 90 mg/dL (65-110); Potassium 3.9 mmol/L (3.4-5.0); Sodium 136 mmol/L (137-145)
[2022-04-12] MEDS: DULoxetine HCL 60 MG CAPSULE.DR PO (10:05)
[2022-04-12] MEDS: ARIPiprazole 2 MG TABLET PO (10:05)
[2022-04-12] MEDS: MAGNESIUM OXIDE 400 MG TABLET PO (10:05)
[2022-04-12] MEDS: levETIRAcetam 250 MG TABLET PO ×2 (10:05→21:08)
[2022-04-12] MEDS: LORATADINE 10 MG TABLET PO (10:06)
[2022-04-12] MEDS: ATORVASTATIN 10 MG TABLET PO (10:06)
[2022-04-12] MEDS: PANTOPRAZOLE 40 MG TABLET PO (10:06)
[2022-04-12] MEDS: MIRABEGRON 25 MG ER TABLET PO (10:06)
[2022-04-12] MEDS: ASPIRIN 81 MG ENTERIC TABLET PO (10:06)
[2022-04-12] MEDS: lamoTRIgine 100 MG TABLET PO (10:07)
[2022-04-12] MEDS: FAMOTIDINE 20 MG TABLET PO (10:07)
[2022-04-12] MEDS: FERROUS SULFATE 324 MG TABLET PO (10:07)
[2022-04-12] MEDS: FLUTICASONE PROPIONATE 0.05% NA SPR 16 GM BTL (*BKC) 2 SPRAY NASAL (10:07)
[2022-04-12] MEDS: DOCUSATE SODIUM 100 MG CAPSULE PO (10:10)
[2022-04-12 16:38] LABS: Creatine Kinase 41 U/L (30-135)
[2022-04-12] MEDS: RIVAROXABAN 20 MG TABLET PO (17:04)
[2022-04-12] MEDS: DONEPEZIL HCL 10 MG TABLET PO (21:07)
[2022-04-12] MEDS: MELATONIN 3 MG TABLET PO (21:09)
[2022-04-13] VITALS (10 sets, daily range): BP systolic 140–152; BP diastolic 50–82; PULSE 65–86; RESP 16–20; TEMP 36.3–37.2; O2SAT 96
[2022-04-13 07:01] LABS: Basophils Percent Auto 0.4 % (0.2-1.2); Eosinophils Absolute Auto 0.1 K/mm3 (0-0.3); Eosinophils Percent Auto 1.6 % (0-4.4); Hematocrit 26.2 % (37.0-47.0); Hemoglobin 8.5 g/dL (12.0-15.0); Immature Granulocyte Absolute 0.08 K/mm3 (0.00-0.031); Mean Corpuscular HGB Conc 32.4 g/dl (32-36); Mean Corpuscular Hemoglobin 33.2 pg (26-34); Mean Corpuscular Volume 102.3 fl (80-100); Mean Platelet Volume 9.2 fl (7.4-10.4); Monocytes Absolute Auto 0.5 K/mm3 (0.1-0.6); Monocytes Percent Auto 5.5 % (2.6-8.5); Neutrophils Absolute Auto 6.2 K/mm3 (1.3-6.7); Neutrophils Percent Auto 74.5 % (45.5-73.1); Platelet Count Result 458 k/mm3 (150-375); Red Blood Count 2.56 M/mm3 (4.2-5.4); Red Cell Distribution Width 14.5 % (11.5-14.5); White Blood Count 8.3 K/mm3 (4.5-10.0)
[2022-04-13 07:14] LABS: Alanine Aminotransferase 24 U/L (6-35); Albumin Level 3.2 g/dL (3.5-5.1); Alkaline Phosphatase 101 U/L (38-126); Anion Gap 4 mmol/L (8-16); Aspartate Amino Transferase 28 U/L (14-36); Bilirubin,Total 0.4 mg/dL (0.2-1.3); Blood Urea Nitrogen 9 mg/dL (7-17); Calcium 8.2 mg/dL (8.4-10.2); Carbon Dioxide 28 mmol/L (22-30); Chloride 100 mmol/L (98-107); Estimated CRCL calculation 37 ml/min; Estimated Glomerular Filt Rate 53; Glucose 97 mg/dL (65-110); Magnesium 2.1 mg/dL (1.6-2.3); Potassium 3.6 mmol/L (3.4-5.0); Sodium 132 mmol/L (137-145)
[2022-04-13] MEDS: MIRABEGRON 25 MG ER TABLET PO (09:41)
[2022-04-13] MEDS: levETIRAcetam 250 MG TABLET PO ×2 (09:41→21:21)
[2022-04-13] MEDS: LORATADINE 10 MG TABLET PO (09:41)
[2022-04-13] MEDS: FERROUS SULFATE 324 MG TABLET PO (09:41)
[2022-04-13] MEDS: cefTRIAXone 2 GM in SODIUM CHLORIDE 0.9% IV 100 ML 200 ML IVPB (09:41)
[2022-04-13] MEDS: lamoTRIgine 100 MG TABLET PO (09:41)
[2022-04-13] MEDS: PANTOPRAZOLE 40 MG TABLET PO (09:41)
[2022-04-13] MEDS: FAMOTIDINE 20 MG TABLET PO (09:41)
[2022-04-13] MEDS: MAGNESIUM OXIDE 400 MG TABLET PO (09:42)
[2022-04-13] MEDS: FLUTICASONE PROPIONATE 0.05% NA SPR 16 GM BTL (*BKC) 2 SPRAY NASAL (09:42)
[2022-04-13] MEDS: ARIPiprazole 2 MG TABLET PO (09:42)
[2022-04-13] MEDS: DULoxetine HCL 60 MG CAPSULE.DR PO (09:42)
[2022-04-13] MEDS: ASPIRIN 81 MG ENTERIC TABLET PO (09:42)
[2022-04-13] MEDS: ATORVASTATIN 10 MG TABLET PO (09:43)
--- NOTE | 2022-04-13 09:50 | WPDNEURCNPN ---
Assessment and Plan Assessment and plan (1) Lower extremity pain: Code(s): M79.606 - Pain in leg, unspecified Status: Acute (2) Lower extremity weakness: Code(s): R29.898 - Other symptoms and signs involving the musculoskeletal system Status: Acute (3) Dementia: Code(s): F03.90 - Unspecified dementia, unspecified severity, without behavioral disturbance, psychotic disturbance, mood disturbance, and anxiety Status: Acute (4) Pyelonephritis: Code(s): N12 - Tubulo-interstitial nephritis, not specified as acute or chronic Status: Acute Plan Kenton Wilhelm is a 81 year old female with a history of Alzheimer's dementia, HTN, frequent UTIs, history of stroke, HLD, atrial fibrillation, seizure, and schizoaffective disorder who presented from [facility] due to altered mental status, now with concerns for lower extremity weakness and pain. Physical exam shows good strength in the lower extremities with a lot of prompting; movement in the lower extremities seems to be more limited due to pain. Unclear if this is neuropathic pain or joint related pain and if this is a chronic issue. - Recommend starting Gabapentin 300mg TID for pain - Recommend PT/OT evaluation - If persistent concerns for weakness, can obtain MRI brain - EMG/NCS can be done as outpatient for evaluation of neuropathy Consult date: 04/13/22 Time Seen: 09:50 Reason for consult: Lower extremity weakness HPI: Kenton Wilhelm is a 81 year old female with a history of Alzheimer's dementia, HTN, frequent UTIs, history of stroke, HLD, atrial fibrillation, seizure, and schizoaffective disorder who presented from [facility] on 04/04 due to altered mental status. Staff noted that patient was obtundeded and unresponsive so she was brought to [place] ED. CT scan was concerning for pyelonephritis so she was admitted with IV antibiotics for sepsis. Her mental status improved throughout the admission, and she is now back to her baseline. However, for the past day she has been complaining of lower extremity weakness and pain. She reports she is unable to lift her legs up. She has been receiving [place] PRN for the pain. She is on a number of medications including Aricept 10mg qhs, Lipitor 10mg daily, Aspirin 81mg daily, Keppra 250mg BID, and Xarelto 20mg daily. She had a CT head on admission that only showed old infarcts in the left frontal, left temporoparietal regions, and bilateral cerebellar infarcts. She had a CT of her spine done yesterday which showed chronic fractures involving T12-LL2 with central canal stenosis at L1 as well as moderate to severe cervical spondylosis. Patient is unable to give much history about timing of the symptoms, but does express that the weakness and pain started sometime during admission. She is not able to describe the type of pain she is having and where in the lower extremities. She does report numbness, but does not know how long it's been going on for. Review of Systems Constitutional: Constitutional: Reports weakness Eyes: Eyes: Reports no additional eye complaints ENT: Reports dysphagia Cardiovascular: Cardiovascular: Reports no additional cardiovascular complaints Respiratory: Respiratory: Reports no additional respiratory complaints Gastrointestinal: Gastrointestinal: Reports diarrhea Genitourinary: Genitourinary: Reports nocturia Musculoskeletal: Musculoskeletal: Reports back pain and Reports myalgias Integumentary/Breasts: Skin/Breast: Reports system reviewed and no additional complaints, except as docu Neurologic: Reports as per HPI and Reports numbness Psychiatric: Psychiatric: Reports confusion PMFSH Past Medical History Medical History Alzheimers disease Anxiety CHF (congestive heart failure) Echocardiogram March 2019 demonstrating mild left atrial enlargement, grade 1 diastolic dysfunction EF 60-65%; trace aortic, pulmonic, and
--- NOTE | 2022-04-13 12:21 | PM.IMPN ---
Progress Note: A&P Assessment and Plan (1) Sepsis: Code(s): A41.9 - Sepsis, unspecified organism Status: Acute Assessment and Plan: patient clinically improving Blood cx positive for GNB, sens pending Repeat blood cx ordered 04/06 CT abdomen and pelvis shows possible gastritis, cystitis with pyelonephritis, possible aspiration pneumonia Continue vanc and Zosyn Speech therapy consulted (2) Delirium due to general medical condition: Code(s): F05 - Delirium due to known physiological condition Status: Acute Assessment and Plan: Resolved CT head on admission 04/04/2022 (3) Seizure disorder: Code(s): G40.909 - Epilepsy, unspecified, not intractable, without status epilepticus Status: Chronic Assessment and Plan: continue home meds continue to monitor (4) Paroxysmal atrial fibrillation: Code(s): I48.0 - Paroxysmal atrial fibrillation Status: Chronic Assessment and Plan: rate controlled anticoagulated (5) GERD (gastroesophageal reflux disease): Qualifiers: Esophagitis presence: esophagitis presence not specified Qualified Code(s): K21.9 - Gastro-esophageal reflux disease without esophagitis Code(s): K21.9 - Gastro-esophageal reflux disease without esophagitis Status: Chronic Assessment and Plan: continue PPI (6) Dementia: Qualifiers: Dementia behavioral disturbance: without behavioral disturbance Dementia type: unspecified type Qualified Code(s): F03.90 - Unspecified dementia without behavioral disturbance Code(s): F03.90 - Unspecified dementia, unspecified severity, without behavioral disturbance, psychotic disturbance, mood disturbance, and anxiety Status: Chronic Assessment and Plan: continue donepezil (7) Pyelonephritis: Code(s): N12 - Tubulo-interstitial nephritis, not specified as acute or chronic Status: Acute Assessment and Plan: patient started on vancomycin and Zosyn deescalate antibiotics as able urine culture showing kirk sens ecoli, continue zosyn for now, a blood culture positive for E coli 04/04/2022 pansensitive repeat blood culture 04/06/2020 2- to date Vancomycin has since stopped. Will change Zosyn to ceftriaxone. Ten days from 04/06/2022. Ceftriaxone to 2 g IV daily (8) Lung infiltrate on CT: Code(s): R91.8 - Other nonspecific abnormal finding of lung field Status: Acute Assessment and Plan: on vancomycin and Zosyn deescalate antibiotics as above blood cx with E coli as noted above (9) Physical deconditioning: Code(s): R53.81 - Other malaise Status: Acute Assessment and Plan: 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 (10) Spondylosis: Code(s): M47.9 - Spondylosis, unspecified Status: Acute Assessment and Plan: With associated lower extremity weakness, neurology consult pending Plan DVT prophylaxis with Xarelto GI prophylaxis with PPI Code status DNR/DNI Subjective Date/time seen: 04/13/22 12:21 Interval history: No overnight events noted. No chest pain or shortness of breath. No nausea, vomiting or diarrhea. No fevers or chills. Patient's is in room and is concerned about patient's longstanding urinary incontinence as well as chronic diarrhea. She states she always lower extremity pain and the weakness has been getting progressively worse because the pain is making her use a wheelchair instead of her walker. Patient and her both think the patient is feeling much better than when she was admitted. Stable on room air. Review of Systems Review of Systems: 12 point review of systems was assessed and was negative except as noted in the HPI Exam Narrative: General: No acute distress, alert and oriented per baseline HEENT: Atraumatic, normocephalic, mucous membranes moist CV: Regular rate and rhythm, S1, S2 Lungs: Clear to auscultation bilaterally, no ra
[2022-04-13] MEDS: RIVAROXABAN 20 MG TABLET PO (16:39)
[2022-04-13] MEDS: GABAPENTIN 300 MG CAPSULE PO (17:56)
[2022-04-13] MEDS: DONEPEZIL HCL 10 MG TABLET PO (21:22)
[2022-04-13] MEDS: MELATONIN 3 MG TABLET PO (21:22)
[2022-04-14] VITALS (8 sets, daily range): BP systolic 113–155; BP diastolic 41–65; PULSE 60–72; RESP 12–20; TEMP 36.2–37.6; O2SAT 91–95
[2022-04-14 07:06] LABS: Alanine Aminotransferase 27 U/L (6-35); Albumin Level 3.3 g/dL (3.5-5.1); Alkaline Phosphatase 102 U/L (38-126); Anion Gap 4 mmol/L (8-16); Aspartate Amino Transferase 30 U/L (14-36); Bilirubin,Total 0.4 mg/dL (0.2-1.3); Blood Urea Nitrogen 9 mg/dL (7-17); Calcium 8.4 mg/dL (8.4-10.2); Carbon Dioxide 28 mmol/L (22-30); Chloride 103 mmol/L (98-107); Estimated CRCL calculation 38 ml/min; Estimated Glomerular Filt Rate 53; Glucose 96 mg/dL (65-110); Potassium 3.7 mmol/L (3.4-5.0); Sodium 135 mmol/L (137-145)
[2022-04-14 07:09] LABS: Basophils Percent Auto 0.4 % (0.2-1.2); Eosinophils Absolute Auto 0.2 K/mm3 (0-0.3); Eosinophils Percent Auto 2.1 % (0-4.4); Hematocrit 27.7 % (37.0-47.0); Hemoglobin 8.9 g/dL (12.0-15.0); Immature Granulocyte Absolute 0.07 K/mm3 (0.00-0.031); Lymphocytes Absolute Auto 1.45 K/mm3 (0.9-3.2); Mean Corpuscular HGB Conc 32.1 g/dl (32-36); Mean Corpuscular Hemoglobin 33.2 pg (26-34); Mean Corpuscular Volume 103.4 fl (80-100); Mean Platelet Volume 9.4 fl (7.4-10.4); Monocytes Absolute Auto 0.5 K/mm3 (0.1-0.6); Monocytes Percent Auto 6.7 % (2.6-8.5); Neutrophils Absolute Auto 5.1 K/mm3 (1.3-6.7); Neutrophils Percent Auto 69.8 % (45.5-73.1); Platelet Count Result 459 k/mm3 (150-375); Red Blood Count 2.68 M/mm3 (4.2-5.4); Red Cell Distribution Width 14.6 % (11.5-14.5); White Blood Count 7.3 K/mm3 (4.5-10.0)
[2022-04-14] MEDS: FERROUS SULFATE 324 MG TABLET PO (09:23)
[2022-04-14] MEDS: FAMOTIDINE 20 MG TABLET PO (09:23)
[2022-04-14] MEDS: MIRABEGRON 25 MG ER TABLET PO (09:24)
[2022-04-14] MEDS: LORATADINE 10 MG TABLET PO (09:24)
[2022-04-14] MEDS: DOCUSATE SODIUM 100 MG CAPSULE PO (09:24)
[2022-04-14] MEDS: PANTOPRAZOLE 40 MG TABLET PO (09:24)
[2022-04-14] MEDS: FLUTICASONE PROPIONATE 0.05% NA SPR 16 GM BTL (*BKC) 2 SPRAY NASAL (09:24)
[2022-04-14] MEDS: levETIRAcetam 250 MG TABLET PO ×2 (09:24→20:19)
[2022-04-14] MEDS: ARIPiprazole 2 MG TABLET PO (09:24)
[2022-04-14] MEDS: ASPIRIN 81 MG ENTERIC TABLET PO (09:24)
[2022-04-14] MEDS: MAGNESIUM OXIDE 400 MG TABLET PO (09:24)
[2022-04-14] MEDS: ATORVASTATIN 10 MG TABLET PO (09:24)
[2022-04-14] MEDS: GABAPENTIN 300 MG CAPSULE PO ×3 (09:24→16:52)
[2022-04-14] MEDS: DULoxetine HCL 60 MG CAPSULE.DR PO (09:24)
[2022-04-14] MEDS: lamoTRIgine 100 MG TABLET PO (09:24)
[2022-04-14] MEDS: cefTRIAXone 2 GM in SODIUM CHLORIDE 0.9% IV 100 ML 200 ML IVPB (09:28)
[2022-04-14] MEDS: HYDROcodone/acetaminophen (*CRX) 5-325 MG TABLET 1 TAB PO (09:33)
--- NOTE | 2022-04-14 14:44 | PM.IMPN ---
Progress Note: A&P Assessment and Plan (1) Sepsis: Code(s): A41.9 - Sepsis, unspecified organism Status: Acute Assessment and Plan: E coli bacteremia, resolved, last dose of Rocephin tomorrow (2) Delirium due to general medical condition: Code(s): F05 - Delirium due to known physiological condition Status: Acute Assessment and Plan: Resolved (3) Seizure disorder: Code(s): G40.909 - Epilepsy, unspecified, not intractable, without status epilepticus Status: Chronic Assessment and Plan: Stable (4) Paroxysmal atrial fibrillation: Code(s): I48.0 - Paroxysmal atrial fibrillation Status: Chronic Assessment and Plan: rate controlled anticoagulated (5) GERD (gastroesophageal reflux disease): Qualifiers: Esophagitis presence: esophagitis presence not specified Qualified Code(s): K21.9 - Gastro-esophageal reflux disease without esophagitis Code(s): K21.9 - Gastro-esophageal reflux disease without esophagitis Status: Chronic Assessment and Plan: continue PPI (6) Dementia: Qualifiers: Dementia behavioral disturbance: without behavioral disturbance Dementia type: unspecified type Qualified Code(s): F03.90 - Unspecified dementia without behavioral disturbance Code(s): F03.90 - Unspecified dementia, unspecified severity, without behavioral disturbance, psychotic disturbance, mood disturbance, and anxiety Status: Chronic Assessment and Plan: continue donepezil (7) Pyelonephritis: Code(s): N12 - Tubulo-interstitial nephritis, not specified as acute or chronic Status: Acute Assessment and Plan: patient started on vancomycin and Zosyn deescalate antibiotics as able urine culture showing kirk sens ecoli, continue zosyn for now, a blood culture positive for E coli 04/04/2022 pansensitive repeat blood culture 04/06/2020 2- to date Vancomycin has since stopped. Will change Zosyn to ceftriaxone. Ten days from 04/06/2022. Ceftriaxone to 2 g IV daily (8) Lung infiltrate on CT: Code(s): R91.8 - Other nonspecific abnormal finding of lung field Status: Acute Assessment and Plan: Rocephin for E coli sepsis, resolving (9) Physical deconditioning: Code(s): R53.81 - Other malaise Status: Acute Assessment and Plan: 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 (10) Spondylosis: Code(s): M47.9 - Spondylosis, unspecified Status: Acute Assessment and Plan: With associated lower extremity weakness, neurology consult pending Appreciate neurosurgery consultation, MRI lumbar spine pending Plan DVT prophylaxis with Xarelto GI prophylaxis with PPI Code status DNR/DNI Anticipate discharge tomorrow after MRI results and last dose of Rocephin, his follow-up outpatient with neurosurgery for intervention Subjective Date/time seen: 04/14/22 14:44 Interval history: No overnight events noted. No chest pain or shortness of breath. No nausea, vomiting or diarrhea. No fevers or chills. Patient still with significant lower extremity pain prohibiting her ability to mobilize. Stable on room air. Review of Systems Review of Systems: All systems reviewed & are unremarkable except as noted in HPI and below (the history and physical examination.) Exam Narrative: General: No acute distress, alert and oriented per baseline HEENT: Atraumatic, normocephalic, mucous membranes moist CV: Regular rate and rhythm, S1, S2 Lungs: Clear to auscultation bilaterally, no rales or crackles noted, no wheezes, good air entry Abdomen: Soft, nontender, nondistended Extremities: Normal to inspection Skin: No rashes noted, no lesions or wounds seen Psych: Euthymic, normal affect Objective Data Vital Signs Vital Signs: Vital Signs - 24 hr 04/13/22 16:00 04/13/22 20:00 04/13/22 22:00 Temperature 98.7 F Pulse Rate 66 65 69 Respiratory Rate 16 B
[2022-04-14] MEDS: RIVAROXABAN 20 MG TABLET PO (16:52)
--- NOTE | 2022-04-14 16:54 | WPDNEUROSGCN ---
Assessment and Plan Assessment and plan (1) Lower extremity pain: Code(s): M79.606 - Pain in leg, unspecified Status: Acute Plan Assessment: The patient presents with complaints of bilateral lower extremity pain. The etiology of this pain is not entirely clear to me. The CT scan does not demonstrate a particular anatomic defect that would explain the symptoms. She appears to be neurologically intact on physical examination. Her situation is complicated by her multiple medical problems, recent sepsis, her dementia. I understand that she has a DNR code status. Recommendations: In MRI of the lumbar spine without contrast would be useful in this setting to further evaluate the source of her leg pain. it would be useful to have input from her power of estate planning attorney and family members regarding aggressiveness of care. It is possible that her leg pain could be related to spinal stenosis and epidural steroid injections and or surgery would potentially be useful in relieving her pain if the family wished to pursue these relatively invasive treatment modalities. I am not sure that her urinary incontinence is neurogenic since she is immobile and unable to get to the commode or bathroom in a timely fashion. She should have neurologic checks with her vital signs and I should be contacted with any deterioration in her neurologic status. Physical therapy and occupational therapy will continue to be useful likely. I can be reached at [phone] in order to discuss this further. 60 minutes were spent in the activities documented in this note. Greater than 50% of the time was spent [id number] with the patient. PMFSH Past Medical History Medical History Alzheimers disease Anxiety CHF (congestive heart failure) Echocardiogram March 2019 demonstrating mild left atrial enlargement, grade 1 diastolic dysfunction EF 60-65%; trace aortic, pulmonic, and tricuspid regurgitation. Dementia Follows with neurologist, Dr. 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 Patient resides at [facility]. She has a state IDPA form on the chart and indicates her code status is DNR. She denies any alcohol or other substance use. Former smoker quit in 1979. Smoking packs per day: 1 Smoking cigarettes per day: 20.0 Years smoked: 10 Smoking pack-years: 10.00 Smoking status: Never smoker Tobacco type: cigarettes Smoking end date: 05/08/79 Alcohol intake: never Substance use: never Substance use type: does not use Additional occupation/education comments: [employer] Gender identity (if verbalized by the patient): Female Sexual Orientation (if Verbalized by the Patient): Straight or Heterosexual 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: No Agree to blood products: Yes Meds Home Medications and Allergies Home Medications Medication Instructions Recorded Confirmed Type aspirin 81 mg tablet,delayed 81 mg PO DAILY 03/20/19 04/04/22 History release atorvastatin 10 mg tab
[2022-04-14] MEDS: DONEPEZIL HCL 10 MG TABLET PO (20:19)
[2022-04-14] MEDS: MELATONIN 3 MG TABLET PO (20:20)
[2022-04-15 06:00] VITALS: BP 138/49; PULSE 65; RESP 12; TEMP 37.1; O2SAT 94
[2022-04-15 07:05] LABS: Basophils Percent Auto 0.4 % (0.2-1.2); Eosinophils Absolute Auto 0.2 K/mm3 (0-0.3); Eosinophils Percent Auto 2.5 % (0-4.4); Hematocrit 28.3 % (37.0-47.0); Hemoglobin 8.9 g/dL (12.0-15.0); Immature Granulocyte Absolute 0.09 K/mm3 (0.00-0.031); Immature Granulocyte Percent A 1.2 % (0-0.5); Lymphocytes Absolute Auto 1.81 K/mm3 (0.9-3.2); Mean Corpuscular HGB Conc 31.4 g/dl (32-36); Mean Corpuscular Hemoglobin 33.1 pg (26-34); Mean Corpuscular Volume 105.2 fl (80-100); Mean Platelet Volume 9.1 fl (7.4-10.4); Monocytes Absolute Auto 0.4 K/mm3 (0.1-0.6); Monocytes Percent Auto 5.7 % (2.6-8.5); Neutrophils Percent Auto 66.2 % (45.5-73.1); Platelet Count Result 519 k/mm3 (150-375); Red Blood Count 2.69 M/mm3 (4.2-5.4); Red Cell Distribution Width 14.6 % (11.5-14.5); White Blood Count 7.6 K/mm3 (4.5-10.0)
[2022-04-15 07:22] LABS: Potassium 3.9 mmol/L (3.4-5.0)
[2022-04-15 07:37] LABS: Alanine Aminotransferase 26 U/L (6-35); Albumin Level 3.3 g/dL (3.5-5.1); Alkaline Phosphatase 98 U/L (38-126); Anion Gap 5 mmol/L (8-16); Aspartate Amino Transferase 30 U/L (14-36); Bilirubin,Total 0.4 mg/dL (0.2-1.3); Blood Urea Nitrogen 12 mg/dL (7-17); Calcium 8.2 mg/dL (8.4-10.2); Carbon Dioxide 27 mmol/L (22-30); Chloride 104 mmol/L (98-107); Estimated CRCL calculation 31 ml/min; Estimated Glomerular Filt Rate 43; Glucose 96 mg/dL (65-110); Sodium 136 mmol/L (137-145)
[2022-04-15] MEDS: MIRABEGRON 25 MG ER TABLET PO (08:26)
[2022-04-15] MEDS: PANTOPRAZOLE 40 MG TABLET PO (08:26)
[2022-04-15] MEDS: DULoxetine HCL 60 MG CAPSULE.DR PO (08:26)
[2022-04-15] MEDS: ASPIRIN 81 MG ENTERIC TABLET PO (08:27)
[2022-04-15] MEDS: FAMOTIDINE 20 MG TABLET PO (08:27)
[2022-04-15] MEDS: MAGNESIUM OXIDE 400 MG TABLET PO (08:27)
[2022-04-15] MEDS: lamoTRIgine 100 MG TABLET PO (08:27)
[2022-04-15] MEDS: FERROUS SULFATE 324 MG TABLET PO (08:27)
[2022-04-15] MEDS: LORATADINE 10 MG TABLET PO (08:27)
[2022-04-15] MEDS: DOCUSATE SODIUM 100 MG CAPSULE PO (08:27)
[2022-04-15] MEDS: ATORVASTATIN 10 MG TABLET PO (08:27)
[2022-04-15] MEDS: levETIRAcetam 250 MG TABLET PO ×2 (08:27→21:54)
[2022-04-15] MEDS: GABAPENTIN 300 MG CAPSULE PO ×3 (08:28→17:02)
[2022-04-15] MEDS: ARIPiprazole 2 MG TABLET PO (08:28)
[2022-04-15] MEDS: FLUTICASONE PROPIONATE 0.05% NA SPR 16 GM BTL (*BKC) 2 SPRAY NASAL (08:28)
--- NOTE | 2022-04-15 09:04 | PM.IMPN ---
Progress Note: A&P Assessment and Plan (1) Psoas abscess, left: Code(s): K68.12 - Psoas muscle abscess Status: Acute Assessment and Plan: Left psoas intramuscular abscess noted without involvement of the lumbar spine, additional small intramuscular abscess at the distal left gluteus say muscle near a left gluteus medius bursal fluid collection Appreciate neuro surgical consultation, they are recommending IR aspiration of abscess and likely longer course of antibiotics Consult to IR placed (2) Sepsis: Code(s): A41.9 - Sepsis, unspecified organism Status: Acute Assessment and Plan: E coli bacteremia, resolved, last dose of Rocephin today (3) Delirium due to general medical condition: Code(s): F05 - Delirium due to known physiological condition Status: Acute Assessment and Plan: Resolved (4) Seizure disorder: Code(s): G40.909 - Epilepsy, unspecified, not intractable, without status epilepticus Status: Chronic Assessment and Plan: Stable (5) Paroxysmal atrial fibrillation: Code(s): I48.0 - Paroxysmal atrial fibrillation Status: Chronic Assessment and Plan: rate controlled anticoagulated (6) GERD (gastroesophageal reflux disease): Qualifiers: Esophagitis presence: esophagitis presence not specified Qualified Code(s): K21.9 - Gastro-esophageal reflux disease without esophagitis Code(s): K21.9 - Gastro-esophageal reflux disease without esophagitis Status: Chronic Assessment and Plan: continue PPI (7) Dementia: Qualifiers: Dementia behavioral disturbance: without behavioral disturbance Dementia type: unspecified type Qualified Code(s): F03.90 - Unspecified dementia without behavioral disturbance Code(s): F03.90 - Unspecified dementia, unspecified severity, without behavioral disturbance, psychotic disturbance, mood disturbance, and anxiety Status: Chronic Assessment and Plan: continue donepezil (8) Pyelonephritis: Code(s): N12 - Tubulo-interstitial nephritis, not specified as acute or chronic Status: Acute Assessment and Plan: patient started on vancomycin and Zosyn deescalate antibiotics as able urine culture showing kirk sens ecoli, continue zosyn for now, a blood culture positive for E coli 04/04/2022 pansensitive repeat blood culture 04/06/2020 2- to date Vancomycin has since stopped. Will change Zosyn to ceftriaxone. Ten days from 04/06/2022. Ceftriaxone to 2 g IV daily, last day today, 04/15 (9) Lung infiltrate on CT: Code(s): R91.8 - Other nonspecific abnormal finding of lung field Status: Acute Assessment and Plan: Rocephin for E coli sepsis, resolving (10) Physical deconditioning: Code(s): R53.81 - Other malaise Status: Acute Assessment and Plan: 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 (11) Spondylosis: Code(s): M47.9 - Spondylosis, unspecified Status: Acute Assessment and Plan: 04/14 With associated lower extremity weakness, neurology consult pending Appreciate neurosurgery consultation, MRI lumbar spine pending 04/15 Abnormality of left psoas muscle noted on MRI, concerning for abscess vs hematoma, will check MRI with contrast, suspect this finding is the etiology of her pain Plan DVT prophylaxis with Xarelto GI prophylaxis with PPI Code status DNR/DNI Subjective Date/time seen: 04/15/22 09:04 Interval history: No overnight events noted. No chest pain or shortness of breath. No nausea, vomiting or diarrhea. No fevers or chills. Patient is working with therapy today. She states her leg pain is worse on the left and significantly inhibiting her ability to mobilize. Stable on room air. Review of Systems Review of Systems: 12 point review of systems was assessed and was negative except as noted in the HPI Exam Narrative: General: No acute distress, alert
[2022-04-15 09:22] LABS: Anisocytosis 2+ (NORMAL); Hypochromasia 1+ (NORMAL); Platelet Estimate Increased (Adequate); Schistocytes None Seen (NORMAL)
--- NOTE | 2022-04-15 10:06 | PCPTNOTE ---
Patient refused treatment this session. States I can't do that now. I don't feel well. Patient educated in the importance of participating in therapy to increase strength and mobility. Patient voiced understanding and continued to refuse.
[2022-04-15] MEDS: HYDROcodone/acetaminophen (*CRX) 5-325 MG TABLET 1 TAB PO (12:02)
[2022-04-15 14:00] VITALS: BP 101/54; PULSE 68; RESP 20; TEMP 36.4; O2SAT 97
--- NOTE | 2022-04-15 15:38 | WPDNEUROSGPN ---
Progress Note: A&P Assessment and Plan (1) Spondylosis: Code(s): M47.9 - Spondylosis, unspecified Status: Acute Plan Neurologically stable patient with compression fracture in setting of sepsis history MRI without contrast shows compression fracture without spinal stenosis Psoas muscle on left with leesion concerning for hematoma versus abscess. Given sepsis history concern for abscess is high - this could also be pain generator No evidence of obvious osteomyelitis / discitis but would recommend MRI lumbar spine with contrast to further evaluate IF there is psoas / paraspinal absecess / infection will need to consider more protracted course of antibiotics vs. IR aspiration of abscess No indication for surgical intervention at this time Please call with any additional questions. Dr. Laughlin will be following this weekend Time Spent With Patient Time: 30 minutes spent in the care of this patient Subjective Date/time seen: 04/15/22 15:38 PAtient sitting up in chair in brace Pain control improved Exam Narrative: Awake and alert - confused [place] EOMI Face= TML MAEW with good strength 5/5 in LE bilaterally Objective Data Vital Signs Vital Signs: Vital Signs - 24 hr 04/14/22 16:00 04/14/22 21:46 04/15/22 06:00 Temperature 99.6 F 98.8 F Pulse Rate 66 72 65 Respiratory Rate 12 12 Blood Pressure 113/41 L 138/49 L Pulse Oximetry 91 94 Oxygen Delivery 04/15/22 08:00 Temperature Pulse Rate Respiratory Rate Blood Pressure Pulse Oximetry Oxygen Delivery Room Air Intake/Output Intake/Output: Intake & Output 04/12/22 04/13/22 04/14/22 04/15/22 23:59 23:59 23:59 23:59 Intake Total 690 1020 980 520 Balance 690 1020 980 520 Meds/Results Medications: Active Medications Generic Name Dose Route Start Last Admin Trade Name Freq PRN Reason Stop Dose Admin Acetaminophen 650 mg 04/05/22 02:11 04/11/22 21:41 Acetaminophen 325 Mg Tablet BY MOUTH 650 mg Q4H PRN Administration Pain (Scale Score 1-3) Hydrocodone Bitart/Acetaminophen 1 tab 04/07/22 11:58 04/15/22 12:02 Hydrocodone/Acetaminophen (*Crx) 5-325 Mg Tablet PO 1 tab Q4H PRN Administration Pain Rated 4-6 Aripiprazole 2 mg 04/05/22 09:00 04/15/22 08:28 Aripiprazole 2 Mg Tablet PO 2 mg DAILY ALEXIS Administration Aspirin 81 mg 04/05/22 09:00 04/15/22 08:27 Aspirin 81 Mg Enteric Tablet PO 81 mg DAILY ALEXIS Administration Atorvastatin Calcium 10 mg 04/05/22 09:00 04/15/22 08:27 Atorvastatin 10 Mg Tablet PO 10 mg DAILY ALEXIS Administration Docusate Sodium 100 mg 04/05/22 09:00 04/15/22 08:27 Docusate Sodium 100 Mg Capsule PO 100 mg DAILY ALEXIS Administration Donepezil HCl 10 mg 04/05/22 21:00 04/14/22 20:19 Donepezil Hcl 10 Mg Tablet PO 10 mg HS ALEXIS Administration Duloxetine HCl 60 mg 04/05/22 09:00 04/15/22 08:26 Duloxetine Hcl 60 Mg Capsule.Dr PO 60 mg DAILY ALEXIS Administration Famotidine 20 mg 04/05/22 09:00 04/15/22 08:27 Famotidine 20 Mg Tablet PO 20 mg DAILY ALEXIS Administration Ferrous Sulfate 324 mg 04/05/22 08:00 04/15/22 08:27 Ferrous Sulfate 324 Mg Tablet PO 324 mg DAILY@0800 ALEXIS Administration Fluticasone Propionate 2 spray 04/05/22 09:00 04/15/22 08:28 Fluticasone Propionate 0.05% Na Spr 16 Gm Btl (*Bkc) NASAL 2 spray DAILY ALEXIS Administration Gabapentin 300 mg 04/13/22 17:35 04/15/22 12:02 Gabapentin 300 Mg Capsule PO 300 mg TID ALEXIS Administration Guaifenesin 200 mg 04/05/22 02:19 Guaifenesin 200 Mg/10 Ml Udc PO Q4H PRN Cough Lamotrigine 100 mg 04/05/22 09:00 04/15/22 08:27 Lamotrigine 100 Mg Tablet PO 100 mg DAILY ALEXIS Administration Levetiracetam 250 mg 04/05/22 09:00 04/15/22 08:27 Levetiracetam 250 Mg Tablet PO 250 mg Q12HR ALEXIS Administration Loperamide HCl 2 mg 04/13/22 17:33 Loperamide Hcl 2 Mg Capsule PO PRN PRN Diarr
[2022-04-15] MEDS: RIVAROXABAN 20 MG TABLET PO (17:02)
[2022-04-15] MEDS: MELATONIN 3 MG TABLET PO (21:53)
[2022-04-15] MEDS: DONEPEZIL HCL 10 MG TABLET PO (21:54)
[2022-04-15 21:58] VITALS: BP 123/47; PULSE 69; RESP 14; TEMP 37; O2SAT 95
[2022-04-16 06:00] VITALS: BP 148/55; PULSE 73; RESP 12; TEMP 36.1; O2SAT 94
[2022-04-16] MEDS: ASPIRIN 81 MG ENTERIC TABLET PO (08:20)
[2022-04-16] MEDS: FERROUS SULFATE 324 MG TABLET PO (08:20)
[2022-04-16] MEDS: ARIPiprazole 2 MG TABLET PO (08:20)
[2022-04-16] MEDS: ATORVASTATIN 10 MG TABLET PO (08:20)
[2022-04-16] MEDS: MIRABEGRON 25 MG ER TABLET PO (08:21)
[2022-04-16] MEDS: GABAPENTIN 300 MG CAPSULE PO ×3 (08:21→17:52)
[2022-04-16] MEDS: DULoxetine HCL 60 MG CAPSULE.DR PO (08:21)
[2022-04-16] MEDS: LORATADINE 10 MG TABLET PO (08:21)
[2022-04-16] MEDS: levETIRAcetam 250 MG TABLET PO ×2 (08:21→20:12)
[2022-04-16] MEDS: PANTOPRAZOLE 40 MG TABLET PO (08:21)
[2022-04-16] MEDS: FLUTICASONE PROPIONATE 0.05% NA SPR 16 GM BTL (*BKC) 2 SPRAY NASAL (08:21)
[2022-04-16] MEDS: DOCUSATE SODIUM 100 MG CAPSULE PO (08:21)
[2022-04-16] MEDS: lamoTRIgine 100 MG TABLET PO (08:21)
[2022-04-16] MEDS: FAMOTIDINE 20 MG TABLET PO (08:21)
[2022-04-16] MEDS: MAGNESIUM OXIDE 400 MG TABLET PO (08:22)
[2022-04-16 08:39] LABS: Basophils Percent Auto 0.5 % (0.2-1.2); Eosinophils Absolute Auto 0.2 K/mm3 (0-0.3); Eosinophils Percent Auto 2.8 % (0-4.4); Hematocrit 31.2 % (37.0-47.0); Hemoglobin 9.6 g/dL (12.0-15.0); Immature Granulocyte Absolute 0.08 K/mm3 (0.00-0.031); Lymphocytes Absolute Auto 1.94 K/mm3 (0.9-3.2); Lymphocytes Percent Auto 24.4 % (18.3-44.2); Mean Corpuscular HGB Conc 30.8 g/dl (32-36); Mean Corpuscular Hemoglobin 33.2 pg (26-34); Mean Platelet Volume 9.2 fl (7.4-10.4); Monocytes Absolute Auto 0.5 K/mm3 (0.1-0.6); Neutrophils Absolute Auto 5.2 K/mm3 (1.3-6.7); Neutrophils Percent Auto 65.3 % (45.5-73.1); Platelet Count Result 537 k/mm3 (150-375); Red Blood Count 2.89 M/mm3 (4.2-5.4); Red Cell Distribution Width 14.4 % (11.5-14.5); White Blood Count 7.9 K/mm3 (4.5-10.0)
[2022-04-16 08:51] LABS: Alanine Aminotransferase 25 U/L (6-35); Albumin Level 3.4 g/dL (3.5-5.1); Alkaline Phosphatase 100 U/L (38-126); Anion Gap 5 mmol/L (8-16); Aspartate Amino Transferase 32 U/L (14-36); Bilirubin,Total 0.6 mg/dL (0.2-1.3); Blood Urea Nitrogen 14 mg/dL (7-17); Calcium 8.5 mg/dL (8.4-10.2); Carbon Dioxide 29 mmol/L (22-30); Chloride 103 mmol/L (98-107); Estimated CRCL calculation 34 ml/min; Estimated Glomerular Filt Rate 47; Glucose 83 mg/dL (65-110); Potassium 3.8 mmol/L (3.4-5.0); Sodium 137 mmol/L (137-145)
[2022-04-16 14:00] VITALS: BP 111/55; PULSE 67; RESP 20; TEMP 35.7; O2SAT 100
--- NOTE | 2022-04-16 14:41 | PM.IMPN ---
Progress Note: A&P Assessment and Plan (1) Psoas abscess, left: Code(s): K68.12 - Psoas muscle abscess Status: Acute Assessment and Plan: Left psoas intramuscular abscess noted without involvement of the lumbar spine, additional small intramuscular abscess at the distal left gluteus say muscle near a left gluteus medius bursal fluid collection Appreciate neuro surgical consultation, recommending IR aspiration of abscess and likely longer course of antibiotics Consult to IR placed (2) Sepsis: Code(s): A41.9 - Sepsis, unspecified organism Status: Acute Assessment and Plan: E coli bacteremia, resolved, last dose of Rocephin today (3) Delirium due to general medical condition: Code(s): F05 - Delirium due to known physiological condition Status: Acute Assessment and Plan: Resolved (4) Seizure disorder: Code(s): G40.909 - Epilepsy, unspecified, not intractable, without status epilepticus Status: Chronic Assessment and Plan: Stable (5) Paroxysmal atrial fibrillation: Code(s): I48.0 - Paroxysmal atrial fibrillation Status: Chronic Assessment and Plan: rate controlled anticoagulated (6) GERD (gastroesophageal reflux disease): Qualifiers: Esophagitis presence: esophagitis presence not specified Qualified Code(s): K21.9 - Gastro-esophageal reflux disease without esophagitis Code(s): K21.9 - Gastro-esophageal reflux disease without esophagitis Status: Chronic Assessment and Plan: continue PPI (7) Dementia: Qualifiers: Dementia type: unspecified type Dementia behavioral disturbance: without behavioral disturbance Qualified Code(s): F03.90 - Unspecified dementia without behavioral disturbance Code(s): F03.90 - Unspecified dementia, unspecified severity, without behavioral disturbance, psychotic disturbance, mood disturbance, and anxiety Status: Chronic Assessment and Plan: continue donepezil (8) Lung infiltrate on CT: Code(s): R91.8 - Other nonspecific abnormal finding of lung field Status: Acute Assessment and Plan: Rocephin for E coli sepsis, resolving (9) Physical deconditioning: Code(s): R53.81 - Other malaise Status: Acute Assessment and Plan: 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 (10) Spondylosis: Code(s): M47.9 - Spondylosis, unspecified Status: Acute Assessment and Plan: 04/14 With associated lower extremity weakness, neurology consult pending Appreciate neurosurgery consultation, MRI lumbar spine pending 04/15 Abnormality of left psoas muscle noted on MRI, concerning for abscess vs hematoma, will check MRI with contrast, suspect this finding is the etiology of her pain have to hold Eliquis for 6 hours prior to the procedure as per Radiology Patient seen by IR catheter placement for the abscess of the psoas muscle Plan DVT prophylaxis with Xarelto GI prophylaxis with PPI Code status DNR/DNI Time Spent With Patient Time with patient: 25 - 35 minutes Subjective Date/time seen: 04/16/22 14:41 Interval history: no new complaints appears comfortable Review of Systems Review of Systems: All systems reviewed & are unremarkable except as noted in HPI and below Exam Narrative: GENERAL: Well appearing, well-nourished, non-toxic, in no acute distress. HEAD: Normocephalic, atraumatic. NECK: Supple. No adenopathy, no masses. RESPIRATORY: Airway patent, respirations nonlabored. Clear to auscultation bilaterally, no rales, rhonchi, wheezing. CARDIOVASCULAR: Regular rate and rhythm without murmurs, rubs, or gallops. Peripheral pulses 2+ and equal bilaterally. ABDOMINAL: Soft, nontender, nondistended, no hepatosplenomegaly. Normoactive BS. MUSCULOSKELETAL: no Epigastric and no hypochondrial tenderness has a back brace SKIN: Warm, dry, normal color. No rashes. NEURO: A&O X3. Moves all extremit
[2022-04-16] MEDS: RIVAROXABAN 20 MG TABLET PO (17:52)
[2022-04-16] MEDS: HYDROcodone/acetaminophen (*CRX) 5-325 MG TABLET 1 TAB PO (17:52)
[2022-04-16] MEDS: MELATONIN 3 MG TABLET PO (20:12)
[2022-04-16] MEDS: DONEPEZIL HCL 10 MG TABLET PO (20:13)
[2022-04-16 22:00] VITALS: BP 119/50; PULSE 57; RESP 16; TEMP 35.7; O2SAT 95
[2022-04-17 06:00] VITALS: BP 162/70; PULSE 79; RESP 16; TEMP 35.9; O2SAT 100
[2022-04-17 07:45] LABS: Basophils Percent Auto 0.6 % (0.2-1.2); Eosinophils Absolute Auto 0.2 K/mm3 (0-0.3); Eosinophils Percent Auto 3.7 % (0-4.4); Hematocrit 31.2 % (37.0-47.0); Hemoglobin 9.9 g/dL (12.0-15.0); Immature Granulocyte Absolute 0.05 K/mm3 (0.00-0.031); Immature Granulocyte Percent A 0.8 % (0-0.5); Lymphocytes Absolute Auto 1.46 K/mm3 (0.9-3.2); Lymphocytes Percent Auto 22.6 % (18.3-44.2); Mean Corpuscular HGB Conc 31.7 g/dl (32-36); Mean Corpuscular Volume 107.2 fl (80-100); Mean Platelet Volume 9.6 fl (7.4-10.4); Monocytes Absolute Auto 0.4 K/mm3 (0.1-0.6); Neutrophils Absolute Auto 4.3 K/mm3 (1.3-6.7); Neutrophils Percent Auto 66.3 % (45.5-73.1); Platelet Count Result 536 k/mm3 (150-375); Red Blood Count 2.91 M/mm3 (4.2-5.4); Red Cell Distribution Width 14.6 % (11.5-14.5); White Blood Count 6.5 K/mm3 (4.5-10.0)
[2022-04-17 07:59] LABS: Alanine Aminotransferase 29 U/L (6-35); Albumin Level 3.6 g/dL (3.5-5.1); Alkaline Phosphatase 99 U/L (38-126); Anion Gap 5 mmol/L (8-16); Aspartate Amino Transferase 43 U/L (14-36); Bilirubin,Total 0.4 mg/dL (0.2-1.3); Blood Urea Nitrogen 14 mg/dL (7-17); Calcium 8.9 mg/dL (8.4-10.2); Carbon Dioxide 32 mmol/L (22-30); Chloride 99 mmol/L (98-107); Estimated CRCL calculation 37 ml/min; Estimated Glomerular Filt Rate 53; Glucose 89 mg/dL (65-110); Potassium 4.1 mmol/L (3.4-5.0); Sodium 136 mmol/L (137-145)
[2022-04-17] MEDS: GABAPENTIN 300 MG CAPSULE PO (11:18)
[2022-04-17] MEDS: ASPIRIN 81 MG ENTERIC TABLET PO (11:18)
[2022-04-17] MEDS: LORATADINE 10 MG TABLET PO (11:19)
[2022-04-17] MEDS: PANTOPRAZOLE 40 MG TABLET PO (11:19)
[2022-04-17] MEDS: lamoTRIgine 100 MG TABLET PO (11:19)
[2022-04-17] MEDS: MIRABEGRON 25 MG ER TABLET PO (11:19)
[2022-04-17] MEDS: FERROUS SULFATE 324 MG TABLET PO (11:19)
[2022-04-17] MEDS: DULoxetine HCL 60 MG CAPSULE.DR PO (11:19)
[2022-04-17] MEDS: levETIRAcetam 250 MG TABLET PO ×2 (11:19→20:39)
[2022-04-17] MEDS: FAMOTIDINE 20 MG TABLET PO (11:19)
[2022-04-17] MEDS: ARIPiprazole 2 MG TABLET PO (11:19)
[2022-04-17] MEDS: MAGNESIUM OXIDE 400 MG TABLET PO (11:20)
[2022-04-17] MEDS: ATORVASTATIN 10 MG TABLET PO (11:20)
[2022-04-17] MEDS: DOCUSATE SODIUM 100 MG CAPSULE PO (11:20)
[2022-04-17] MEDS: FLUTICASONE PROPIONATE 0.05% NA SPR 16 GM BTL (*BKC) 2 SPRAY NASAL (11:20)
[2022-04-17 14:00] VITALS: BP 174/70; PULSE 66; RESP 20; TEMP 35.8; O2SAT 100
--- NOTE | 2022-04-17 14:07 | PM.IMPN ---
Progress Note: A&P Assessment and Plan (1) Psoas abscess, left: Code(s): K68.12 - Psoas muscle abscess Status: Acute Assessment and Plan: Left psoas intramuscular abscess noted without involvement of the lumbar spine, additional small intramuscular abscess at the distal left gluteus say muscle near a left gluteus medius bursal fluid collection Appreciate neuro surgical consultation, recommending IR aspiration of abscess and likely longer course of antibiotics at this antibiotics on hold as it finished a 10 day course Rocephin there is no indication to start antibiotics as patient WBC counts are normal, patient febrile, blood pressure signs of sepsis Consult to IR placed intervention for scheduled for tomorrow (2) Sepsis: Code(s): A41.9 - Sepsis, unspecified organism Status: Acute Assessment and Plan: E coli bacteremia, resolved, last dose of Rocephin today (3) Delirium due to general medical condition: Code(s): F05 - Delirium due to known physiological condition Status: Acute Assessment and Plan: Resolved (4) Seizure disorder: Code(s): G40.909 - Epilepsy, unspecified, not intractable, without status epilepticus Status: Chronic Assessment and Plan: Stable (5) Paroxysmal atrial fibrillation: Code(s): I48.0 - Paroxysmal atrial fibrillation Status: Chronic Assessment and Plan: rate controlled anticoagulated (6) GERD (gastroesophageal reflux disease): Qualifiers: Esophagitis presence: esophagitis presence not specified Qualified Code(s): K21.9 - Gastro-esophageal reflux disease without esophagitis Code(s): K21.9 - Gastro-esophageal reflux disease without esophagitis Status: Chronic Assessment and Plan: continue PPI (7) Dementia: Qualifiers: Dementia type: unspecified type Dementia behavioral disturbance: without behavioral disturbance Qualified Code(s): F03.90 - Unspecified dementia without behavioral disturbance Code(s): F03.90 - Unspecified dementia, unspecified severity, without behavioral disturbance, psychotic disturbance, mood disturbance, and anxiety Status: Chronic Assessment and Plan: continue donepezil (8) Lung infiltrate on CT: Code(s): R91.8 - Other nonspecific abnormal finding of lung field Status: Acute Assessment and Plan: Rocephin for E coli sepsis, resolving (9) Physical deconditioning: Code(s): R53.81 - Other malaise Status: Acute Assessment and Plan: 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 HEAD: Normocephalic, atraumatic. NECK: Supple. No adenopathy, no masses. RESPIRATORY: Airway patent, respirations nonlabored. Clear to auscultation bilaterally, no rales, rhonchi, wheezing. CARDIOVASCULAR: Regular rate and rhythm without murmurs, rubs, or gallops. Peripheral pulses 2+ and equal bilaterally. ABDOMINAL: Soft, nontender, nondistended, no hepatosplenomegaly. Normoactive BS. MUSCULOSKELETAL: no Epigastric and no hypochondrial tenderness has a back brace SKIN: Warm, dry, normal color. No rashes. NEURO: A&O X3. Moves all extremities PSYCHIATRIC: Appropriate mood and affect. Normal interaction. Objective Data Vital Signs Vital Signs: Vital Signs - 24 hr 04/16/22 20:00 04/16/22 22:00 04/17/22 06:00 Temperature 35.7 C L 35.9 C L Pulse Rate 57 L 79 R
[2022-04-17] MEDS: DONEPEZIL HCL 10 MG TABLET PO (20:40)
[2022-04-17] MEDS: MELATONIN 3 MG TABLET PO (20:40)
[2022-04-17 21:46] VITALS: BP 102/80; PULSE 64; RESP 18; TEMP 36.3; O2SAT 95
[2022-04-18 06:00] VITALS: BP 171/65; PULSE 68; RESP 20; TEMP 36.4; O2SAT 96
[2022-04-18 07:06] LABS: Basophils Absolute Auto 0.1 K/mm3 (0.0-0.1); Basophils Percent Auto 0.9 % (0.2-1.2); Eosinophils Absolute Auto 0.2 K/mm3 (0-0.3); Eosinophils Percent Auto 3.5 % (0-4.4); Hematocrit 29.9 % (37.0-47.0); Hemoglobin 9.3 g/dL (12.0-15.0); Immature Granulocyte Absolute 0.03 K/mm3 (0.00-0.031); Immature Granulocyte Percent A 0.5 % (0-0.5); Lymphocytes Absolute Auto 1.66 K/mm3 (0.9-3.2); Lymphocytes Percent Auto 30.2 % (18.3-44.2); Mean Corpuscular HGB Conc 31.1 g/dl (32-36); Mean Corpuscular Hemoglobin 32.9 pg (26-34); Mean Corpuscular Volume 105.7 fl (80-100); Mean Platelet Volume 9.1 fl (7.4-10.4); Monocytes Absolute Auto 0.3 K/mm3 (0.1-0.6); Neutrophils Absolute Auto 3.2 K/mm3 (1.3-6.7); Neutrophils Percent Auto 58.9 % (45.5-73.1); Platelet Count Result 505 k/mm3 (150-375); Red Blood Count 2.83 M/mm3 (4.2-5.4); Red Cell Distribution Width 14.1 % (11.5-14.5); White Blood Count 5.5 K/mm3 (4.5-10.0)
[2022-04-18 07:18] LABS: Alanine Aminotransferase 38 U/L (6-35); Albumin Level 3.5 g/dL (3.5-5.1); Alkaline Phosphatase 96 U/L (38-126); Anion Gap 5 mmol/L (8-16); Aspartate Amino Transferase 55 U/L (14-36); Bilirubin,Total 0.4 mg/dL (0.2-1.3); Blood Urea Nitrogen 13 mg/dL (7-17); Calcium 8.8 mg/dL (8.4-10.2); Carbon Dioxide 30 mmol/L (22-30); Chloride 101 mmol/L (98-107); Estimated CRCL calculation 37 ml/min; Estimated Glomerular Filt Rate 53; Glucose 94 mg/dL (65-110); Potassium 3.8 mmol/L (3.4-5.0); Sodium 136 mmol/L (137-145)
[2022-04-18] MEDS: FERROUS SULFATE 324 MG TABLET PO (09:11)
[2022-04-18] MEDS: ASPIRIN 81 MG ENTERIC TABLET PO (09:12)
[2022-04-18] MEDS: ARIPiprazole 2 MG TABLET PO (09:12)
[2022-04-18] MEDS: ATORVASTATIN 10 MG TABLET PO (09:12)
[2022-04-18] MEDS: DOCUSATE SODIUM 100 MG CAPSULE PO (09:13)
[2022-04-18] MEDS: DULoxetine HCL 60 MG CAPSULE.DR PO (09:13)
[2022-04-18] MEDS: FLUTICASONE PROPIONATE 0.05% NA SPR 16 GM BTL (*BKC) 2 SPRAY NASAL (09:13)
[2022-04-18] MEDS: FAMOTIDINE 20 MG TABLET PO (09:13)
[2022-04-18] MEDS: lamoTRIgine 100 MG TABLET PO (09:14)
[2022-04-18] MEDS: LORATADINE 10 MG TABLET PO (09:14)
[2022-04-18] MEDS: levETIRAcetam 250 MG TABLET PO ×2 (09:14→20:46)
[2022-04-18] MEDS: GABAPENTIN 300 MG CAPSULE PO ×3 (09:14→17:26)
[2022-04-18] MEDS: PANTOPRAZOLE 40 MG TABLET PO (09:15)
[2022-04-18] MEDS: MIRABEGRON 25 MG ER TABLET PO (09:15)
[2022-04-18] MEDS: MAGNESIUM OXIDE 400 MG TABLET PO (09:15)
[2022-04-18 14:00] VITALS: BP 132/69; PULSE 74; RESP 16; TEMP 36.2; O2SAT 98
--- NOTE | 2022-04-18 14:17 | PM.IMPN ---
Progress Note: A&P Assessment and Plan (1) Psoas abscess, left: Code(s): K68.12 - Psoas muscle abscess Status: Acute Assessment and Plan: Left psoas intramuscular abscess noted without involvement of the lumbar spine, additional small intramuscular abscess at the distal left gluteus say muscle near a left gluteus medius bursal fluid collection Appreciate neuro surgical consultation, recommending IR aspiration of abscess and likely longer course of antibiotics at this antibiotics on hold as it finished a 10 day course Rocephin there is no indication to start antibiotics as patient WBC counts are normal, patient febrile, blood pressure signs of sepsis Consult to IR placed intervention for scheduled for tomorrow (2) Sepsis: Code(s): A41.9 - Sepsis, unspecified organism Status: Acute Assessment and Plan: E coli bacteremia, resolved, last dose of Rocephin today (3) Delirium due to general medical condition: Code(s): F05 - Delirium due to known physiological condition Status: Acute Assessment and Plan: Resolved (4) Seizure disorder: Code(s): G40.909 - Epilepsy, unspecified, not intractable, without status epilepticus Status: Chronic Assessment and Plan: Stable (5) Paroxysmal atrial fibrillation: Code(s): I48.0 - Paroxysmal atrial fibrillation Status: Chronic Assessment and Plan: rate controlled anticoagulated (6) GERD (gastroesophageal reflux disease): Qualifiers: Esophagitis presence: esophagitis presence not specified Qualified Code(s): K21.9 - Gastro-esophageal reflux disease without esophagitis Code(s): K21.9 - Gastro-esophageal reflux disease without esophagitis Status: Chronic Assessment and Plan: continue PPI (7) Dementia: Qualifiers: Dementia type: unspecified type Dementia behavioral disturbance: without behavioral disturbance Qualified Code(s): F03.90 - Unspecified dementia without behavioral disturbance Code(s): F03.90 - Unspecified dementia, unspecified severity, without behavioral disturbance, psychotic disturbance, mood disturbance, and anxiety Status: Chronic Assessment and Plan: continue donepezil (8) Lung infiltrate on CT: Code(s): R91.8 - Other nonspecific abnormal finding of lung field Status: Acute Assessment and Plan: Rocephin for E coli sepsis, resolving (9) Physical deconditioning: Code(s): R53.81 - Other malaise Status: Acute Assessment and Plan: 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 HEAD: Normocephalic, atraumatic. NECK: Supple. No adenopathy, no masses. RESPIRATORY: Airway patent, respirations nonlabored. Clear to auscultation bilaterally, no rales, rhonchi, wheezing. CARDIOVASCULAR: Regular rate and rhythm without murmurs, rubs, or gallops. Peripheral pulses 2+ and equal bilaterally. ABDOMINAL: Soft, nontender, nondistended, no hepatosplenomegaly. Normoactive BS. MUSCULOSKELETAL: no Epigastric and no hypochondrial tenderness has a back brace SKIN: Warm, dry, normal color. No rashes. NEURO: A&O X3. Moves all extremities PSYCHIATRIC: Appropriate mood and affect. Normal interaction. Objective Data Vital Signs Vital Signs: Vital Signs - 24 hr 04/17/22 20:00 04/17/22 21:46 04/18/22 06:00 Temperature 36.3 C L 36.4 C Pulse Rate 64 68 Respi
[2022-04-18 20:00] VITALS: PULSE 65; RESP 12; O2SAT 93
[2022-04-18] MEDS: MELATONIN 3 MG TABLET PO (20:46)
[2022-04-18] MEDS: DONEPEZIL HCL 10 MG TABLET PO (20:46)
[2022-04-18 21:53] VITALS: BP 130/53; PULSE 65; RESP 12; TEMP 36.5; O2SAT 93
[2022-04-19 06:00] VITALS: BP 127/50; PULSE 99; RESP 12; TEMP 36.8; O2SAT 96
[2022-04-19 06:41] LABS: Basophils Percent Auto 0.7 % (0.2-1.2); Eosinophils Absolute Auto 0.2 K/mm3 (0-0.3); Eosinophils Percent Auto 3.3 % (0-4.4); Hematocrit 28.1 % (37.0-47.0); Immature Granulocyte Absolute 0.03 K/mm3 (0.00-0.031); Immature Granulocyte Percent A 0.6 % (0-0.5); Lymphocytes Absolute Auto 1.55 K/mm3 (0.9-3.2); Lymphocytes Percent Auto 28.6 % (18.3-44.2); Mean Corpuscular Hemoglobin 33.5 pg (26-34); Mean Corpuscular Volume 104.5 fl (80-100); Mean Platelet Volume 9.1 fl (7.4-10.4); Monocytes Absolute Auto 0.4 K/mm3 (0.1-0.6); Monocytes Percent Auto 6.8 % (2.6-8.5); Neutrophils Absolute Auto 3.3 K/mm3 (1.3-6.7); Platelet Count Result 456 k/mm3 (150-375); Red Blood Count 2.69 M/mm3 (4.2-5.4); Red Cell Distribution Width 14.2 % (11.5-14.5); White Blood Count 5.4 K/mm3 (4.5-10.0)
[2022-04-19 06:51] LABS: Alanine Aminotransferase 28 U/L (6-35); Albumin Level 3.4 g/dL (3.5-5.1); Alkaline Phosphatase 88 U/L (38-126); Anion Gap 4 mmol/L (8-16); Aspartate Amino Transferase 35 U/L (14-36); Bilirubin,Total 0.4 mg/dL (0.2-1.3); Blood Urea Nitrogen 12 mg/dL (7-17); Calcium 8.7 mg/dL (8.4-10.2); Carbon Dioxide 30 mmol/L (22-30); Chloride 101 mmol/L (98-107); Estimated CRCL calculation 37 ml/min; Estimated Glomerular Filt Rate 53; Glucose 93 mg/dL (65-110); Potassium 4.1 mmol/L (3.4-5.0); Sodium 135 mmol/L (137-145)
[2022-04-19] MEDS: FERROUS SULFATE 324 MG TABLET PO (09:00)
[2022-04-19] MEDS: LORATADINE 10 MG TABLET PO (09:01)
[2022-04-19] MEDS: MAGNESIUM OXIDE 400 MG TABLET PO (09:01)
[2022-04-19] MEDS: GABAPENTIN 300 MG CAPSULE PO ×3 (09:01→20:37)
[2022-04-19] MEDS: DOCUSATE SODIUM 100 MG CAPSULE PO (09:01)
[2022-04-19] MEDS: FLUTICASONE PROPIONATE 0.05% NA SPR 16 GM BTL (*BKC) 2 SPRAY NASAL (09:01)
[2022-04-19] MEDS: ARIPiprazole 2 MG TABLET PO (09:01)
[2022-04-19] MEDS: DULoxetine HCL 60 MG CAPSULE.DR PO (09:01)
[2022-04-19] MEDS: FAMOTIDINE 20 MG TABLET PO (09:01)
[2022-04-19] MEDS: levETIRAcetam 250 MG TABLET PO ×2 (09:01→20:38)
[2022-04-19] MEDS: lamoTRIgine 100 MG TABLET PO (09:01)
[2022-04-19] MEDS: ATORVASTATIN 10 MG TABLET PO (09:01)
[2022-04-19] MEDS: PANTOPRAZOLE 40 MG TABLET PO (09:02)
[2022-04-19] MEDS: MIRABEGRON 25 MG ER TABLET PO (09:02)
[2022-04-19 09:07] LABS: INR 1.2; Prothrombin Time 14.3 Seconds (11.1-14.7)
[2022-04-19 09:09] LABS: Partial Thromboplastin Time 31.6 SECONDS (22.3-36.8)
--- NOTE | 2022-04-19 10:15 | PCNFU ---
Nutrition Follow-Up Complete: Suboptimal po intake related to reduced appetite as evidenced by nursing report of intake Goal:PO intake 50% or greater of meals and supplements. Pt is progressing towards goal. Continue with same goal. Pt current nutrition is Heart healthy, Ensure Enlive TID. Nutrition recommendation: Continue with current plan of care. Last recorded weight is 75.7 kg - stable at this time. Bowel Motility: +BM 04/18 Labs Reviewed: Hgb:9.0, HCT:28.1, Alb:3.4, NA:134, GFR:53 Meds Noted:protonix, mag ox, zofran Skin: no pressure areas noted Additional Notes: Pt continues on heart healthy diet, intake improved to 50-75% average, drinking supplements as well. Continue with current plan of care. Monitor intake, wt, labs. Follow up in 7 days.
--- NOTE | 2022-04-19 12:15 | PM.IMPN ---
Progress Note: A&P Assessment and Plan (1) Psoas abscess, left: Code(s): K68.12 - Psoas muscle abscess Status: Acute Assessment and Plan: Left psoas intramuscular abscess noted without involvement of the lumbar spine, additional small intramuscular abscess at the distal left gluteus say muscle near a left gluteus medius bursal fluid collection Appreciate neuro surgical consultation, recommending IR aspiration of abscess there is no indication to start antibiotics as patient WBC counts are normal, patient febrile, blood pressure signs of sepsis Consult to IR placed intervention for scheduled for today 1 pm (2) Sepsis: Code(s): A41.9 - Sepsis, unspecified organism Status: Acute Assessment and Plan: E coli bacteremia, resolved, last dose of Rocephin today (3) Delirium due to general medical condition: Code(s): F05 - Delirium due to known physiological condition Status: Acute Assessment and Plan: Resolved (4) Seizure disorder: Code(s): G40.909 - Epilepsy, unspecified, not intractable, without status epilepticus Status: Chronic Assessment and Plan: Stable (5) Paroxysmal atrial fibrillation: Code(s): I48.0 - Paroxysmal atrial fibrillation Status: Chronic Assessment and Plan: rate controlled anticoagulated (6) GERD (gastroesophageal reflux disease): Qualifiers: Esophagitis presence: esophagitis presence not specified Qualified Code(s): K21.9 - Gastro-esophageal reflux disease without esophagitis Code(s): K21.9 - Gastro-esophageal reflux disease without esophagitis Status: Chronic Assessment and Plan: continue PPI (7) Dementia: Qualifiers: Dementia type: unspecified type Dementia behavioral disturbance: without behavioral disturbance Qualified Code(s): F03.90 - Unspecified dementia without behavioral disturbance Code(s): F03.90 - Unspecified dementia, unspecified severity, without behavioral disturbance, psychotic disturbance, mood disturbance, and anxiety Status: Chronic Assessment and Plan: continue donepezil (8) Lung infiltrate on CT: Code(s): R91.8 - Other nonspecific abnormal finding of lung field Status: Acute Assessment and Plan: Rocephin for E coli sepsis, resolving (9) Physical deconditioning: Code(s): R53.81 - Other malaise Status: Acute Assessment and Plan: 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 HEAD: Normocephalic, atraumatic. NECK: Supple. No adenopathy, no masses. RESPIRATORY: Airway patent, respirations nonlabored. Clear to auscultation bilaterally, no rales, rhonchi, wheezing. CARDIOVASCULAR: Regular rate and rhythm without murmurs, rubs, or gallops. Peripheral pulses 2+ and equal bilaterally. ABDOMINAL: Soft, nontender, nondistended, no hepatosplenomegaly. Normoactive BS. MUSCULOSKELETAL: no Epigastric and no hypochondrial tenderness has a back brace SKIN: Warm, dry, normal color. No rashes. NEURO: A&O X3. Moves all extremities PSYCHIATRIC: Appropriate mood and affect. Normal interaction. Objective Data Vital Signs Vital Signs: Vital Signs - 24 hr 04/18/22 14:00 04/18/22 21:53 04/18/22 20:00 Temperature 36.2 C L 36.5 C Pulse Rate 74 65 65 Respiratory Rate 16 12 12 Blood Pressure 132/69 130/53 L Pulse Oximetry 98 93 93 Oxygen Delivery Room
[2022-04-19 14:00] VITALS: BP 165/58; PULSE 60; RESP 20; TEMP 36.1; O2SAT 97
[2022-04-19] MEDS: ASPIRIN 81 MG ENTERIC TABLET PO (14:51)
--- NOTE | 2022-04-19 16:01 | PCPTNOTE ---
The patient treatment was not able to be completed this afternoon due to patient out of room for procedure. Will plan to continue treatment per plan of care.
[2022-04-19] MEDS: RIVAROXABAN 20 MG TABLET PO (17:05)
[2022-04-19] MEDS: MELATONIN 3 MG TABLET PO (20:38)
[2022-04-19] MEDS: DONEPEZIL HCL 10 MG TABLET PO (20:38)
[2022-04-19 22:00] VITALS: BP 169/57; PULSE 69; RESP 18; TEMP 36; O2SAT 97
[2022-04-20 06:00] VITALS: BP 162/60; PULSE 58; RESP 18; TEMP 36.2; O2SAT 96
[2022-04-20 06:47] LABS: Basophils Percent Auto 0.6 % (0.2-1.2); Eosinophils Absolute Auto 0.2 K/mm3 (0-0.3); Eosinophils Percent Auto 3.5 % (0-4.4); Hematocrit 31.3 % (37.0-47.0); Hemoglobin 9.7 g/dL (12.0-15.0); Immature Granulocyte Absolute 0.05 K/mm3 (0.00-0.031); Immature Granulocyte Percent A 0.8 % (0-0.5); Lymphocytes Absolute Auto 1.58 K/mm3 (0.9-3.2); Lymphocytes Percent Auto 25.2 % (18.3-44.2); Mean Corpuscular Hemoglobin 32.6 pg (26-34); Mean Platelet Volume 9.1 fl (7.4-10.4); Monocytes Absolute Auto 0.4 K/mm3 (0.1-0.6); Monocytes Percent Auto 5.6 % (2.6-8.5); Neutrophils Percent Auto 64.3 % (45.5-73.1); Platelet Count Result 438 k/mm3 (150-375); Red Blood Count 2.98 M/mm3 (4.2-5.4); Red Cell Distribution Width 14.2 % (11.5-14.5); White Blood Count 6.3 K/mm3 (4.5-10.0)
[2022-04-20] MEDS: ACETAMINOPHEN 325 MG TABLET 650 MG BY MOUTH (06:52)
[2022-04-20 06:57] LABS: Alanine Aminotransferase 27 U/L (6-35); Albumin Level 3.6 g/dL (3.5-5.1); Alkaline Phosphatase 98 U/L (38-126); Anion Gap 6 mmol/L (8-16); Aspartate Amino Transferase 33 U/L (14-36); Bilirubin,Total 0.5 mg/dL (0.2-1.3); Blood Urea Nitrogen 12 mg/dL (7-17); Calcium 8.7 mg/dL (8.4-10.2); Carbon Dioxide 29 mmol/L (22-30); Chloride 104 mmol/L (98-107); Estimated CRCL calculation 37 ml/min; Estimated Glomerular Filt Rate 53; Glucose 96 mg/dL (65-110); Potassium 4.2 mmol/L (3.4-5.0); Sodium 139 mmol/L (137-145)
--- NOTE | 2022-04-20 09:10 | PM.IMPN ---
Progress Note: A&P Assessment and Plan (1) Psoas abscess, left: Code(s): K68.12 - Psoas muscle abscess Status: Acute Assessment and Plan: Left psoas intramuscular abscess noted without involvement of the lumbar spine, additional small intramuscular abscess at the distal left gluteus say muscle near a left gluteus medius bursal fluid collection Appreciate neuro surgical consultation, recommending IR aspiration of abscess there is no indication to start antibiotics as patient WBC counts are normal, patient febrile, blood pressure signs of sepsis Consult to IR placed intervention for scheduled for today 1 pm 04/20/22 - Patient appears to be clinically stable. Drain output not recorded overnight. Per report only 1ml of bloody fluid aspirated. May need additional input from Neurosurgery as leg weakness does not seem to have improved and drain output appears to be miniscule. Fluid aspirate culture with no growth. Patient will likely need SNF and follow up. outpatient [facility] Neurosurgery. (2) Sepsis: Code(s): A41.9 - Sepsis, unspecified organism Status: Acute Assessment and Plan: E. coli bacteremia and E. coli in urine from blood and urine cultures from 04/04. Repeat blood cultures from 04/06 finalized with no growth. Patient treated with antibiotics from 04/04 through 04/15/22. Treatment completed. (3) Delirium due to general medical condition: Code(s): F05 - Delirium due to known physiological condition Status: Acute Assessment and Plan: Resolved (4) Seizure disorder: Code(s): G40.909 - Epilepsy, unspecified, not intractable, without status epilepticus Status: Chronic Assessment and Plan: Stable (5) Paroxysmal atrial fibrillation: Code(s): I48.0 - Paroxysmal atrial fibrillation Status: Chronic Assessment and Plan: rate controlled anticoagulated (6) GERD (gastroesophageal reflux disease): Qualifiers: Esophagitis presence: esophagitis presence not specified Qualified Code(s): K21.9 - Gastro-esophageal reflux disease without esophagitis Code(s): K21.9 - Gastro-esophageal reflux disease without esophagitis Status: Chronic Assessment and Plan: continue PPI (7) Dementia: Qualifiers: Dementia type: unspecified type Dementia behavioral disturbance: without behavioral disturbance Qualified Code(s): F03.90 - Unspecified dementia without behavioral disturbance Code(s): F03.90 - Unspecified dementia, unspecified severity, without behavioral disturbance, psychotic disturbance, mood disturbance, and anxiety Status: Chronic Assessment and Plan: continue donepezil (8) Lung infiltrate on CT: Code(s): R91.8 - Other nonspecific abnormal finding of lung field Status: Acute Assessment and Plan: Rocephin for E coli sepsis, resolving (9) Physical deconditioning: Code(s): R53.81 - Other malaise Status: Acute Assessment and Plan: 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 coli] as the cause of diseases classified elsewhere Status: Acute Assessment and Plan: 04/04/22 cultures 2/2 with E. coli. Repeat cultures while on antibiotics from 04/06/22 finalized with no growth. Subjective Date/time seen: 04/20/22 09:10 Patient says she feels about the same and does not think she is any better. Denies worsening of leg pain or weakness. IR drain placed yesterday. Review of Systems Neurologic: Comments: leg weakness Exam Narrative: GENERAL: NAD, cooperative, sitting in the bedside chair HEENT: Normocephalic, atraumatic, anicteric NECK: Supple CV: Normal S1, S2, RRR, No MRG RESP: CTAB, Normal work of breathing. EXTR
[2022-04-20] MEDS: ASPIRIN 81 MG ENTERIC TABLET PO (09:45)
[2022-04-20] MEDS: DOCUSATE SODIUM 100 MG CAPSULE PO (09:45)
[2022-04-20] MEDS: ATORVASTATIN 10 MG TABLET PO (09:45)
[2022-04-20] MEDS: PANTOPRAZOLE 40 MG TABLET PO (09:45)
[2022-04-20] MEDS: MIRABEGRON 25 MG ER TABLET PO (09:45)
[2022-04-20] MEDS: FERROUS SULFATE 324 MG TABLET PO (09:45)
[2022-04-20] MEDS: FLUTICASONE PROPIONATE 0.05% NA SPR 16 GM BTL (*BKC) 2 SPRAY NASAL (09:46)
[2022-04-20] MEDS: ARIPiprazole 2 MG TABLET PO (09:46)
[2022-04-20] MEDS: DULoxetine HCL 60 MG CAPSULE.DR PO (09:46)
[2022-04-20] MEDS: LORATADINE 10 MG TABLET PO (09:46)
[2022-04-20] MEDS: lamoTRIgine 100 MG TABLET PO (09:46)
[2022-04-20] MEDS: MAGNESIUM OXIDE 400 MG TABLET PO (09:46)
[2022-04-20] MEDS: FAMOTIDINE 20 MG TABLET PO (09:46)
[2022-04-20] MEDS: GABAPENTIN 300 MG CAPSULE PO ×3 (09:46→17:38)
[2022-04-20] MEDS: levETIRAcetam 250 MG TABLET PO ×2 (09:46→20:34)
[2022-04-20 10:58] VITALS: O2SAT 97
[2022-04-20 14:00] VITALS: BP 114/54; PULSE 68; RESP 14; TEMP 36.2; O2SAT 98
[2022-04-20] MEDS: RIVAROXABAN 20 MG TABLET PO (17:38)
[2022-04-20] MEDS: MELATONIN 3 MG TABLET PO (20:34)
[2022-04-20] MEDS: DONEPEZIL HCL 10 MG TABLET PO (20:34)
[2022-04-20 21:27] VITALS: BP 138/48; PULSE 62; RESP 18; TEMP 36.3; O2SAT 96
--- NOTE | 2022-04-20 23:40 | PC.NURSE ---
Pt sleeping at start of shift. Pt woke up to take medication and participate in assessment. Pt participated and contributed in plan of care. Pt has no complaints of pain and express no needs at this time. Will continue to monitor pt.
[2022-04-21 05:25] VITALS: BP 146/45; PULSE 61; RESP 18; TEMP 36.3; O2SAT 93
[2022-04-21 07:38] LABS: Basophils Percent Auto 0.6 % (0.2-1.2); Eosinophils Absolute Auto 0.2 K/mm3 (0-0.3); Eosinophils Percent Auto 3.4 % (0-4.4); Hemoglobin 9.9 g/dL (12.0-15.0); Immature Granulocyte Absolute 0.04 K/mm3 (0.00-0.031); Immature Granulocyte Percent A 0.6 % (0-0.5); Lymphocytes Absolute Auto 1.68 K/mm3 (0.9-3.2); Lymphocytes Percent Auto 26.2 % (18.3-44.2); Mean Corpuscular HGB Conc 30.9 g/dl (32-36); Mean Corpuscular Hemoglobin 32.7 pg (26-34); Mean Corpuscular Volume 105.6 fl (80-100); Mean Platelet Volume 9.3 fl (7.4-10.4); Monocytes Absolute Auto 0.4 K/mm3 (0.1-0.6); Monocytes Percent Auto 5.9 % (2.6-8.5); Neutrophils Absolute Auto 4.1 K/mm3 (1.3-6.7); Neutrophils Percent Auto 63.3 % (45.5-73.1); Platelet Count Result 391 k/mm3 (150-375); Red Blood Count 3.03 M/mm3 (4.2-5.4); Red Cell Distribution Width 14.3 % (11.5-14.5); White Blood Count 6.4 K/mm3 (4.5-10.0)
[2022-04-21 07:54] LABS: Alanine Aminotransferase 24 U/L (6-35); Albumin Level 3.6 g/dL (3.5-5.1); Alkaline Phosphatase 90 U/L (38-126); Anion Gap 3 mmol/L (8-16); Aspartate Amino Transferase 29 U/L (14-36); Bilirubin,Total 0.4 mg/dL (0.2-1.3); Blood Urea Nitrogen 16 mg/dL (7-17); Calcium 8.9 mg/dL (8.4-10.2); Carbon Dioxide 31 mmol/L (22-30); Chloride 100 mmol/L (98-107); Estimated CRCL calculation 33 ml/min; Estimated Glomerular Filt Rate 47; Glucose 90 mg/dL (65-110); Potassium 4.5 mmol/L (3.4-5.0); Sodium 134 mmol/L (137-145)
[2022-04-21 08:00] VITALS: PULSE 61; RESP 18; O2SAT 93
--- NOTE | 2022-04-21 08:22 | PM.IMPN ---
Progress Note: A&P Assessment and Plan (1) Psoas abscess, left: Code(s): K68.12 - Psoas muscle abscess Status: Acute Assessment and Plan: Left psoas intramuscular abscess noted without involvement of the lumbar spine, additional small intramuscular abscess at the distal left gluteus say muscle near a left gluteus medius bursal fluid collection Appreciate neuro surgical consultation, recommending IR aspiration of abscess there is no indication to start antibiotics as patient WBC counts are normal, patient febrile, blood pressure signs of sepsis Consult to IR placed intervention for scheduled for today 1 pm 04/20/22 - Patient appears to be clinically stable. Drain output not recorded overnight. Per report only 1ml of bloody fluid aspirated. May need additional input from Neurosurgery as leg weakness does not seem to have improved and drain output appears to be miniscule. Fluid aspirate culture with no growth. Patient will likely need SNF and follow up. outpatient [facility] Neurosurgery 04/21/22 Minimal drain output and patient continues to report leg pain. Appears clinically stable and leukocytosis is not worsening. Will get CT of the pelvis to see if the abscess is worsening. (2) Sepsis: Code(s): A41.9 - Sepsis, unspecified organism Status: Acute Assessment and Plan: E. coli bacteremia and E. coli in urine from blood and urine cultures from 04/04. Repeat blood cultures from 04/06 finalized with no growth. Patient treated with antibiotics from 04/04 through 04/15/22. Treatment completed. (3) Delirium due to general medical condition: Code(s): F05 - Delirium due to known physiological condition Status: Acute Assessment and Plan: Resolved (4) Seizure disorder: Code(s): G40.909 - Epilepsy, unspecified, not intractable, without status epilepticus Status: Chronic Assessment and Plan: Stable (5) Paroxysmal atrial fibrillation: Code(s): I48.0 - Paroxysmal atrial fibrillation Status: Chronic Assessment and Plan: rate controlled anticoagulated (6) GERD (gastroesophageal reflux disease): Qualifiers: Esophagitis presence: esophagitis presence not specified Qualified Code(s): K21.9 - Gastro-esophageal reflux disease without esophagitis Code(s): K21.9 - Gastro-esophageal reflux disease without esophagitis Status: Chronic Assessment and Plan: continue PPI (7) Dementia: Qualifiers: Dementia type: unspecified type Dementia behavioral disturbance: without behavioral disturbance Qualified Code(s): F03.90 - Unspecified dementia without behavioral disturbance Code(s): F03.90 - Unspecified dementia, unspecified severity, without behavioral disturbance, psychotic disturbance, mood disturbance, and anxiety Status: Chronic Assessment and Plan: continue donepezil (8) Lung infiltrate on CT: Code(s): R91.8 - Other nonspecific abnormal finding of lung field Status: Acute Assessment and Plan: Rocephin for E coli sepsis. Treatment completed. 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 coli] as the cause of diseases classified elsewhere Status: Acute Assessment and Plan: 04/04/22 cultures 2/2 with E. coli. Repeat cultures while on antibiotics from 04/06/22 finalized with no growth. Subjective Date/time seen: 04/21/22 08:22 Patient says she does not feel good this morning. She says her legs are hurting her. Patient says she uses a wheelchair at her nursing facility. Review of Systems Musculoskeletal: Musculoskeletal: Reports my
[2022-04-21] MEDS: DOCUSATE SODIUM 100 MG CAPSULE PO (08:51)
[2022-04-21] MEDS: ATORVASTATIN 10 MG TABLET PO (08:51)
[2022-04-21] MEDS: LORATADINE 10 MG TABLET PO (08:51)
[2022-04-21] MEDS: ASPIRIN 81 MG ENTERIC TABLET PO (08:51)
[2022-04-21] MEDS: FERROUS SULFATE 324 MG TABLET PO (08:51)
[2022-04-21] MEDS: MIRABEGRON 25 MG ER TABLET PO (08:51)
[2022-04-21] MEDS: FAMOTIDINE 20 MG TABLET PO (08:51)
[2022-04-21] MEDS: ARIPiprazole 2 MG TABLET PO (08:51)
[2022-04-21] MEDS: GABAPENTIN 300 MG CAPSULE PO ×3 (08:51→17:44)
[2022-04-21] MEDS: FLUTICASONE PROPIONATE 0.05% NA SPR 16 GM BTL (*BKC) 2 SPRAY NASAL (08:52)
[2022-04-21] MEDS: levETIRAcetam 250 MG TABLET PO ×2 (08:52→20:23)
[2022-04-21] MEDS: lamoTRIgine 100 MG TABLET PO (08:52)
[2022-04-21] MEDS: DULoxetine HCL 60 MG CAPSULE.DR PO (08:52)
[2022-04-21] MEDS: PANTOPRAZOLE 40 MG TABLET PO (08:52)
[2022-04-21] MEDS: MAGNESIUM OXIDE 400 MG TABLET PO (08:52)
[2022-04-21 14:00] VITALS: BP 128/73; PULSE 58; RESP 16; TEMP 36.4; O2SAT 100
[2022-04-21] MEDS: RIVAROXABAN 20 MG TABLET PO (17:45)
[2022-04-21 20:00] VITALS: PULSE 58; RESP 16; O2SAT 100
[2022-04-21] MEDS: DONEPEZIL HCL 10 MG TABLET PO (20:23)
[2022-04-21] MEDS: MELATONIN 3 MG TABLET PO (20:23)
[2022-04-21 22:00] VITALS: BP 114/49; PULSE 67; RESP 17; TEMP 36.2; O2SAT 3
[2022-04-22 06:42] VITALS: BP 136/53; PULSE 58; RESP 16; TEMP 37.2; O2SAT 94
[2022-04-22 07:28] LABS: Basophils Absolute Auto 0.1 K/mm3 (0.0-0.1); Basophils Percent Auto 0.9 % (0.2-1.2); Eosinophils Absolute Auto 0.2 K/mm3 (0-0.3); Eosinophils Percent Auto 4.3 % (0-4.4); Hematocrit 29.7 % (37.0-47.0); Hemoglobin 9.2 g/dL (12.0-15.0); Immature Granulocyte Absolute 0.03 K/mm3 (0.00-0.031); Immature Granulocyte Percent A 0.5 % (0-0.5); Lymphocytes Absolute Auto 1.89 K/mm3 (0.9-3.2); Lymphocytes Percent Auto 34.2 % (18.3-44.2); Mean Corpuscular Hemoglobin 31.9 pg (26-34); Mean Corpuscular Volume 103.1 fl (80-100); Mean Platelet Volume 9.2 fl (7.4-10.4); Monocytes Absolute Auto 0.4 K/mm3 (0.1-0.6); Monocytes Percent Auto 7.6 % (2.6-8.5); Neutrophils Absolute Auto 2.9 K/mm3 (1.3-6.7); Neutrophils Percent Auto 52.5 % (45.5-73.1); Platelet Count Result 339 k/mm3 (150-375); Red Blood Count 2.88 M/mm3 (4.2-5.4); Red Cell Distribution Width 14.3 % (11.5-14.5); White Blood Count 5.5 K/mm3 (4.5-10.0)
[2022-04-22 07:46] LABS: Alanine Aminotransferase 22 U/L (6-35); Albumin Level 3.4 g/dL (3.5-5.1); Alkaline Phosphatase 87 U/L (38-126); Anion Gap 5 mmol/L (8-16); Aspartate Amino Transferase 29 U/L (14-36); Bilirubin,Total 0.4 mg/dL (0.2-1.3); Blood Urea Nitrogen 20 mg/dL (7-17); Calcium 8.6 mg/dL (8.4-10.2); Carbon Dioxide 30 mmol/L (22-30); Chloride 103 mmol/L (98-107); Estimated CRCL calculation 31 ml/min; Estimated Glomerular Filt Rate 43; Glucose 87 mg/dL (65-110); Potassium 4.5 mmol/L (3.4-5.0); Sodium 138 mmol/L (137-145)
[2022-04-22 08:00] VITALS: PULSE 58; RESP 16; O2SAT 94
--- NOTE | 2022-04-22 08:22 | PM.IMPN ---
Progress Note: A&P Assessment and Plan (1) Psoas abscess, left: Code(s): K68.12 - Psoas muscle abscess Status: Acute Assessment and Plan: Left psoas intramuscular abscess noted without involvement of the lumbar spine, additional small intramuscular abscess at the distal left gluteus say muscle near a left gluteus medius bursal fluid collection Appreciate neuro surgical consultation, recommending IR aspiration of abscess there is no indication to start antibiotics as patient WBC counts are normal, patient febrile, blood pressure signs of sepsis Consult to IR placed intervention for scheduled for today 1 pm 04/20/22 - Patient appears to be clinically stable. Drain output not recorded overnight. Per report only 1ml of bloody fluid aspirated. May need additional input from Neurosurgery as leg weakness does not seem to have improved and drain output appears to be miniscule. Fluid aspirate culture with no growth. Patient will likely need SNF and follow up. outpatient [facility] Neurosurgery 04/21/22 Minimal drain output and patient continues to report leg pain. Appears clinically stable and leukocytosis is not worsening. Will get CT of the pelvis to see if the abscess is worsening. 04/22/22 - Will contact IR to have drain removed as output is minimal and CT pelvis shows decompressed left psoas muscle abscess. Patient will need care coordination to return to facility. May need to discuss with Neurosurgery to see if any additional recommendations prior to discharge to alf. (2) Sepsis: Code(s): A41.9 - Sepsis, unspecified organism Status: Acute Assessment and Plan: E. coli bacteremia and E. coli in urine from blood and urine cultures from 04/04. Repeat blood cultures from 04/06 finalized with no growth. Patient treated with antibiotics from 04/04 through 04/15/22. Treatment completed. (3) Delirium due to general medical condition: Code(s): F05 - Delirium due to known physiological condition Status: Acute Assessment and Plan: Resolved (4) Seizure disorder: Code(s): G40.909 - Epilepsy, unspecified, not intractable, without status epilepticus Status: Chronic Assessment and Plan: Stable (5) Paroxysmal atrial fibrillation: Code(s): I48.0 - Paroxysmal atrial fibrillation Status: Chronic Assessment and Plan: rate controlled anticoagulated (6) GERD (gastroesophageal reflux disease): Qualifiers: Esophagitis presence: esophagitis presence not specified Qualified Code(s): K21.9 - Gastro-esophageal reflux disease without esophagitis Code(s): K21.9 - Gastro-esophageal reflux disease without esophagitis Status: Chronic Assessment and Plan: continue PPI (7) Dementia: Qualifiers: Dementia type: unspecified type Dementia behavioral disturbance: without behavioral disturbance Qualified Code(s): F03.90 - Unspecified dementia without behavioral disturbance Code(s): F03.90 - Unspecified dementia, unspecified severity, without behavioral disturbance, psychotic disturbance, mood disturbance, and anxiety Status: Chronic Assessment and Plan: continue donepezil (8) Lung infiltrate on CT: Code(s): R91.8 - Other nonspecific abnormal finding of lung field Status: Acute Assessment and Plan: Rocephin for E coli sepsis. Treatment completed. 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 coli] as the cause of diseases classified elsewhere Status: Acute Assessment and Plan: 04/04/22 cultures 2/2 with E. coli. Repeat cultures while on antibiotics from
[2022-04-22] MEDS: DOCUSATE SODIUM 100 MG CAPSULE PO (10:05)
[2022-04-22] MEDS: GABAPENTIN 300 MG CAPSULE PO ×3 (10:05→18:07)
[2022-04-22] MEDS: ARIPiprazole 2 MG TABLET PO (10:05)
[2022-04-22] MEDS: ATORVASTATIN 10 MG TABLET PO (10:05)
[2022-04-22] MEDS: DULoxetine HCL 60 MG CAPSULE.DR PO (10:05)
[2022-04-22] MEDS: FERROUS SULFATE 324 MG TABLET PO (10:05)
[2022-04-22] MEDS: MIRABEGRON 25 MG ER TABLET PO (10:05)
[2022-04-22] MEDS: MAGNESIUM OXIDE 400 MG TABLET PO (10:05)
[2022-04-22] MEDS: LORATADINE 10 MG TABLET PO (10:06)
[2022-04-22] MEDS: levETIRAcetam 250 MG TABLET PO ×2 (10:06→20:35)
[2022-04-22] MEDS: lamoTRIgine 100 MG TABLET PO (10:06)
[2022-04-22] MEDS: PANTOPRAZOLE 40 MG TABLET PO (10:06)
[2022-04-22] MEDS: ASPIRIN 81 MG ENTERIC TABLET PO (10:06)
[2022-04-22] MEDS: FAMOTIDINE 20 MG TABLET PO (10:07)
[2022-04-22] MEDS: FLUTICASONE PROPIONATE 0.05% NA SPR 16 GM BTL (*BKC) 2 SPRAY NASAL (10:07)
--- NOTE | 2022-04-22 11:15 | PC.NURSE ---
Multiple phone calls placed this morning regarding order to remove drain. US, IR and CT departments called more than once per department without success to get drain removed. Continued to be referred to different departments. Unable to resolve issue. Charge nurse notified. Pt resting per bed without complaint at this time.
--- NOTE | 2022-04-22 11:21 | PC.NURSE ---
Dr. Brennan would like drain to be removed today. Radha FRITZ made multiple phone calls and was unable to get drain d/c'd and she asked if I could follow up. I called Allyson in radiology and she asked if I could call Dr. Caro. Dr. Caro came to floor and removed drain.
--- NOTE | 2022-04-22 11:33 | PC.NURSE ---
Dr Caro here and drain pulled as ordered.
[2022-04-22 14:00] VITALS: BP 121/60; PULSE 70; RESP 20; TEMP 36.4; O2SAT 94
--- NOTE | 2022-04-22 15:32 | PCPTNOTE ---
Attempted PT re-evaluation, pt refused stating I'm tired. RN aware. Will follow.
[2022-04-22] MEDS: RIVAROXABAN 20 MG TABLET PO (18:07)
[2022-04-22 20:00] VITALS: PULSE 70; RESP 20; O2SAT 94
[2022-04-22] MEDS: DONEPEZIL HCL 10 MG TABLET PO (20:35)
[2022-04-22] MEDS: MELATONIN 3 MG TABLET PO (20:36)
[2022-04-22 22:00] VITALS: BP 115/56; PULSE 78; RESP 19; TEMP 37.1; O2SAT 98
[2022-04-23 06:00] VITALS: PULSE 58; RESP 17; TEMP 36.5; O2SAT 90
[2022-04-23 06:45] LABS: Basophils Absolute Auto 0.1 K/mm3 (0.0-0.1); Basophils Percent Auto 0.9 % (0.2-1.2); Eosinophils Absolute Auto 0.3 K/mm3 (0-0.3); Eosinophils Percent Auto 4.9 % (0-4.4); Hematocrit 29.9 % (37.0-47.0); Hemoglobin 9.3 g/dL (12.0-15.0); Immature Granulocyte Absolute 0.03 K/mm3 (0.00-0.031); Immature Granulocyte Percent A 0.6 % (0-0.5); Lymphocytes Absolute Auto 1.85 K/mm3 (0.9-3.2); Lymphocytes Percent Auto 34.9 % (18.3-44.2); Mean Corpuscular HGB Conc 31.1 g/dl (32-36); Mean Platelet Volume 9.3 fl (7.4-10.4); Monocytes Absolute Auto 0.4 K/mm3 (0.1-0.6); Monocytes Percent Auto 6.6 % (2.6-8.5); Neutrophils Absolute Auto 2.8 K/mm3 (1.3-6.7); Neutrophils Percent Auto 52.1 % (45.5-73.1); Platelet Count Result 297 k/mm3 (150-375); Red Blood Count 2.82 M/mm3 (4.2-5.4); Red Cell Distribution Width 14.2 % (11.5-14.5); White Blood Count 5.3 K/mm3 (4.5-10.0)
[2022-04-23 07:01] LABS: Alanine Aminotransferase 23 U/L (6-35); Albumin Level 3.5 g/dL (3.5-5.1); Alkaline Phosphatase 83 U/L (38-126); Anion Gap 6 mmol/L (8-16); Aspartate Amino Transferase 33 U/L (14-36); Bilirubin,Total 0.3 mg/dL (0.2-1.3); Blood Urea Nitrogen 20 mg/dL (7-17); Carbon Dioxide 29 mmol/L (22-30); Chloride 100 mmol/L (98-107); Estimated CRCL calculation 28 ml/min; Estimated Glomerular Filt Rate 39; Glucose 88 mg/dL (65-110); Potassium 4.2 mmol/L (3.4-5.0); Sodium 135 mmol/L (137-145)
[2022-04-23] MEDS: DULoxetine HCL 60 MG CAPSULE.DR PO (08:54)
[2022-04-23] MEDS: lamoTRIgine 100 MG TABLET PO (08:54)
[2022-04-23] MEDS: levETIRAcetam 250 MG TABLET PO (08:54)
[2022-04-23] MEDS: ATORVASTATIN 10 MG TABLET PO (08:54)
[2022-04-23] MEDS: DOCUSATE SODIUM 100 MG CAPSULE PO (08:54)
[2022-04-23] MEDS: LORATADINE 10 MG TABLET PO (08:54)
[2022-04-23] MEDS: FAMOTIDINE 20 MG TABLET PO (08:54)
[2022-04-23] MEDS: FLUTICASONE PROPIONATE 0.05% NA SPR 16 GM BTL (*BKC) 2 SPRAY NASAL (08:54)
[2022-04-23] MEDS: GABAPENTIN 300 MG CAPSULE PO ×3 (08:54→16:05)
[2022-04-23] MEDS: MIRABEGRON 25 MG ER TABLET PO (08:54)
[2022-04-23] MEDS: ASPIRIN 81 MG ENTERIC TABLET PO (08:54)
[2022-04-23] MEDS: ARIPiprazole 2 MG TABLET PO (08:54)
[2022-04-23] MEDS: MAGNESIUM OXIDE 400 MG TABLET PO (08:54)
[2022-04-23] MEDS: PANTOPRAZOLE 40 MG TABLET PO (08:54)
[2022-04-23] MEDS: FERROUS SULFATE 324 MG TABLET PO (08:54)
[2022-04-23 14:00] VITALS: BP 124/61; PULSE 77; RESP 20; TEMP 36.1; O2SAT 95
--- NOTE | 2022-04-23 14:56 | PM.IMPN ---
Progress Note: A&P Assessment and Plan (1) Psoas abscess, left: Code(s): K68.12 - Psoas muscle abscess Status: Acute Assessment and Plan: Left psoas intramuscular abscess noted without involvement of the lumbar spine, additional small intramuscular abscess at the distal left gluteus say muscle near a left gluteus medius bursal fluid collection Appreciate neuro surgical consultation, recommending IR aspiration of abscess there is no indication to start antibiotics as patient WBC counts are normal, patient febrile, blood pressure signs of sepsis Consult to IR placed intervention for scheduled for today 1 pm 04/20/22 - Patient appears to be clinically stable. Drain output not recorded overnight. Per report only 1ml of bloody fluid aspirated. May need additional input from Neurosurgery as leg weakness does not seem to have improved and drain output appears to be miniscule. Fluid aspirate culture with no growth. Patient will likely need SNF and follow up. outpatient [facility] Neurosurgery 04/21/22 Minimal drain output and patient continues to report leg pain. Appears clinically stable and leukocytosis is not worsening. Will get CT of the pelvis to see if the abscess is worsening. 04/22/22 - Will contact IR to have drain removed as output is minimal and CT pelvis shows decompressed left psoas muscle abscess. Patient will need care coordination to return to facility. May need to discuss with Neurosurgery to see if any additional recommendations prior to discharge to [facility]. 04/23/2022: Psoas catheter out as of 04/22/22. Doing well. Discussed with son and spouse at bedside. They are in agreement with discharge today. (2) Sepsis: Code(s): A41.9 - Sepsis, unspecified organism Status: Acute Assessment and Plan: E. coli bacteremia and E. coli in urine from blood and urine cultures from 04/04. Repeat blood cultures from 04/06 finalized with no growth. Patient treated with antibiotics from 04/04 through 04/15/22. Treatment completed. (3) Delirium due to general medical condition: Code(s): F05 - Delirium due to known physiological condition Status: Acute Assessment and Plan: Resolved (4) Seizure disorder: Code(s): G40.909 - Epilepsy, unspecified, not intractable, without status epilepticus Status: Chronic Assessment and Plan: Stable (5) Paroxysmal atrial fibrillation: Code(s): I48.0 - Paroxysmal atrial fibrillation Status: Chronic Assessment and Plan: rate controlled anticoagulated (6) GERD (gastroesophageal reflux disease): Qualifiers: Esophagitis presence: esophagitis presence not specified Qualified Code(s): K21.9 - Gastro-esophageal reflux disease without esophagitis Code(s): K21.9 - Gastro-esophageal reflux disease without esophagitis Status: Chronic Assessment and Plan: continue PPI (7) Dementia: Qualifiers: Dementia behavioral disturbance: without behavioral disturbance Dementia type: unspecified type Qualified Code(s): F03.90 - Unspecified dementia without behavioral disturbance Code(s): F03.90 - Unspecified dementia, unspecified severity, without behavioral disturbance, psychotic disturbance, mood disturbance, and anxiety Status: Chronic Assessment and Plan: continue donepezil (8) Lung infiltrate on CT: Code(s): R91.8 - Other nonspecific abnormal finding of lung field Status: Acute Assessment and Plan: Rocephin for E coli sepsis. Treatment completed. 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 coli] as the cause of diseases cl
--- NOTE | 2022-04-23 15:12 | PM.DS ---
DS: Admitting Diagnosis Discharge Date 04/23/2022 Admitting Diagnosis UTI with sepsis and metabolic encephalopathy DS: Discharge Diagnosis Discharge Diagnosis Plan UTI with sepsis and metabolic encephalopathy, left psoas abscess DS: Summary Hospital Course Reason for hospitalization: mental status changes Hospital Course: 81-year-old female minute from care home for mental status changes. She was found to have UTI with sepsis. Treated with cefepime. Urine grew E coli. She also had E coli bacteremia. Completed course of antibiotics as noted below. Mental status returned to baseline. Imaging did reveal a left psoas abscess. Confirmed with MRI. Drain was placed by Interventional Radiology as noted below. Removed on April 22 after resolution of abscess. Scant drainage was recorded Prior to drain removal. Family is at bedside and states that patient lives at [facility] and uses a wheelchair most of the time. She will get out of the wheelchair to get into the car or to walk into a restaurant with assistance for short distances only. They take her out to eat 2 to 3 times a week. They say her mental status seems to be at baseline today. She denies chest pain shortness of breath. Denies indigestion difficulty swallowing. Denies bowel or bladder issues. Denies abnormal bleeding. Denies focal weakness. Denies pain in extremities. Time Spent with Patient Time attestation: Total time spent providing and/or coordinating discharge services: Exam Narrative: GENERAL: NAD, cooperative, sitting in the bedside chair HEENT: Normocephalic, atraumatic, anicteric NECK: Supple CV: regular rate, RESP: CTAB, Normal work of breathing. EXTREMITIES: Warm and well perfused, no clubbing, cyanosis, or edema. SKIN: warm, dry and intact. MS: No gross deformity to visual inspection NEURO:CN II-XII grossly intact. dorsiflexion of left foot slightly decreased compared to dorsiflexion and plantar flexion of right foot. Plantar flexion of left foot intact. DS: Data Data Completed and Pending Labs on day of discharge: Labs from last 24 hours 04/23/22 04/23/22 06:36 06:36 WBC 5.3 RBC 2.82 L Hgb 9.3 L Hct 29.9 L MCV 106.0 H MCH 33.0 MCHC 31.1 L RDW 14.2 Plt Count 297 MPV 9.3 Immature Gran % (Auto) 0.6 H Neut % (Auto) 52.1 Lymph % (Auto) 34.9 Garden % (Auto) 6.6 Eos % (Auto) 4.9 H Baso % (Auto) 0.9 Lymph # (Auto) 1.85 Garden # (Auto) 0.4 Eos # (Auto) 0.3 Baso # (Auto) 0.1 Abs Immat Gran (auto) 0.03 Absolute Neuts (auto) 2.8 Absolute Nucleated RBC 0.0 Nucleated RBC % 0.0 Sodium 135 L Potassium 4.2 Chloride 100 Carbon Dioxide 29 Anion Gap 6 L BUN 20 H Creatinine 1.30 H Estim Creat Clear Calc 28 Estimated GFR 39 L Glucose 88 Calcium 9.0 Total Bilirubin 0.3 AST 33 ALT 23 Alkaline Phosphatase 83 Total Protein 6.0 L Albumin 3.5 Preliminary micro results at discharge 04/19/22 14:02 Anaerobic Culture - Preliminary Abscess Discharge Plan Discharge Attending physician on discharge: Pedro Mello Consulting providers: Alena Katz ; Kaden Marion ; Woody Caal Discharging Clinician: Pedro Mello Patient Disposition: [facility] Jail/Asst Living Activity: no straining and as tolerated Diet: regular Patient Instructions: Rivaroxaban (By mouth), Pain Management in Older Adults (DC) Stand Alone Forms: General Discharge Information Follow-up/Referrals: Riaz,Jerilyn Riggins MD [Primary Care Provider] - 1 Week Discharge Medications: New gabapentin [Neurontin] 300 mg Capsule 300 mg PO TID Qty: 21 0RF Continued donepezil 10 mg Tablet 10 mg PO HS aspirin 81 mg Tablet,Delayed Release (Dr/Ec) 81 mg PO DAILY cholecalciferol (vitamin D3) 50,000 unit Tablet 50,000 unit PO WEEKLY Rx Instructions: monday cyanocobalamin (vitamin B-12)
[2022-04-23] MEDS: RIVAROXABAN 20 MG TABLET PO (16:05)
[2022-04-23 16:20] LABS: EDCOVIDSCREEN Negative (Negative)
--- NOTE | 2022-04-23 17:08 | PC.NURSE ---
Called and talked to haresh at [facility] to give report at 1705.
== END 2022-04-23 18:00 | DRG 70 ==
LOC: ANHED 20:40 → ANHIMU 21:58 → ANH3MEDSUR 04-08 01:01
PROVIDERS: Internal Medicine; Student in an Organized Health Care Education/Training Program; Admitting Provider Internal Medicine; Emergency Provider Emergency Medicine; PCP Internal Medicine; Visit Provider Internal Medicine
DX: G93.41 Metabolic encephalopathy (principal); K68.12 Psoas muscle abscess; I50.32 Chronic diastolic (congestive) heart failure; N10 Acute pyelonephritis; I48.0 Paroxysmal atrial fibrillation; E78.5 Hyperlipidemia, unspecified; E55.9 Vitamin D deficiency, unspecified; B96.20 Unspecified Escherichia coli [E. coli] as the cause of diseases classified elsewhere; K21.9 Gastro-esophageal reflux disease without esophagitis; K44.9 Diaphragmatic hernia without obstruction or gangrene; M79.606 Pain in leg, unspecified; M81.0 Age-related osteoporosis without current pathological fracture; M47.816 Spondylosis without myelopathy or radiculopathy, lumbar region; R32 Unspecified urinary incontinence; G40.909 Epilepsy, unspecified, not intractable, without status epilepticus; G30.9 Alzheimer's disease, unspecified; F02.80 Dementia in other diseases classified elsewhere, unspecified severity, without behavioral disturbance, psychotic disturbance, mood disturbance, and anxiety; F32.A Depression, unspecified; F41.9 Anxiety disorder, unspecified; F25.9 Schizoaffective disorder, unspecified; Z20.822 Contact with and (suspected) exposure to COVID-19; Z66 Do not resuscitate; Z79.01 Long term (current) use of anticoagulants; Z79.82 Long term (current) use of aspirin; Z86.73 Personal history of transient ischemic attack (TIA), and cerebral infarction without residual deficits; Z87.891 Personal history of nicotine dependence
CPT/HCPCS: 36415; 36600; 70450; 71045; 72131; 72148; 72192; 72197; 73502; 74177; 75989; 76705; 80053; 80074; 80175; 80177; 81001; 82140; 82550; 82805; 82948; 83605; 83735; 83880; 84443; 84484; 85025; 85610; 85730; 87040; 87070; 87075; 87077; 87086; 87088; 87186; 87205; 87426; 87637; 92610; 93005; 96365; 96375; 97110; 97161; 97165; 97530; 97535; 99285; A9270; A9577; C1729; C1769; C9803; J0131; J0456; J0696; J2543; J3370; J7030; J7120; Q9967

== ENCOUNTER 2022-09-13 09:33 | Observation (INO) | payer MEDICARE, MEDICAID, SELFPAY ==
[2022-09-13] VITALS (33 sets, daily range): BP systolic 122–155; BP diastolic 41–96; PULSE 66–116; RESP 12–21; TEMP 35.8–36.8; O2SAT 95–100; BMI 29.8
--- NOTE | ~2022-09-13 | CT_ITS ---
CT of the Abdomen and Pelvis: Indication: Abdominal pain Technique: 2.5 mm axial scans were obtained through the abdomen and pelvis following intravenous adm inistration of 100 cc of Omnipaque 350. Dose reduction technique was used on this scan by utilizing a utomated exposure control and iterative reconstruction technique. The dose-length product (DLP) was 5 88.52 mGy-cm. COMPARISON: 04/04/2022 Findings: Scans through the lung bases demonstrate moderate hiatal hernia. The liver, spleen, pancreas, gallbladder, right adrenal gland, and kidneys are within normal limits. Stable 2.2 cm left adrenal nodule present. There are atherosclerotic calcifications of the aorta. No lymphadenopathy. No bowel obstruction or bowel wall thickening. There is no evidence to suggest acute appendicitis. Images through the pelvis are degraded by streak artifact from left hip arthroplasty. Urinary bladder appears unremarkable. No pelvic mass seen. No ascites seen. Stable compression fractures of L1 and L 2 are noted. Impression: Moderate hiatal hernia. Stable 2.2 cm left adrenal nodule, indeterminate. Stable compression fractures of L1 and L2. Reviewed, dictated and finalized at [facility]. Impression: Moderate hiatal hernia. Stable 2.2 cm left adrenal nodule, indeterminate. Stable compression fractures of L1 and L2.
--- NOTE | 2022-09-13 09:55 | ECG_ITS ---
Measurements Intervals [place] Rate: 75 P: -19 [place]: 154 QRS: -7 QRSD: 130 T: 58 QT: 401 QTc: 450 Interpretive Statements SINUS RHYTHM LEFT BUNDLE BRANCH BLOCK BASELINE ARTIFACT- I, III, AVL, AVF, V6 ABNORMAL ECG COMPARED TO ECG 04/04/2022 18:06:28 NO SIGNIFICANT CHANGES Electronically Signed On 09-13-2022 11:52:30 CDT by Vladimir Sosa D.O.
--- NOTE | 2022-09-13 10:01 | ED.WEAKNESS ---
HPI - Weakness General Chief complaint: Weakness Stated complaint: weak/lightheaded History of Present Illness HPI Narrative: This is an 81-year-old female with reported history of A-fib on Xarelto, seizure disorder, brought in by EMS from custodial for an episode of near syncope and hypotension. EMS reports at the custodial, the patient was attempting to stand from the toilet, when she became lightheaded. Blood pressure at the time was reported as 60/45 with improvement to 110/55. On their arrival blood pressure was 115/55. The patient has reportedly been complaining of some abdominal pain. Blood sugar reported at 125 The patient complains of intermittent suprapubic abdominal pain, described as cramping and sharp, at max rated 10/10, at minimum rated 2/10. She states she was able to have a bowel movement today but has had difficulty passing gas. Related Data Home Medications Medication Instructions Recorded Confirmed aspirin 81 mg tablet,delayed 81 mg PO DAILY 03/20/19 09/13/22 release atorvastatin 10 mg tablet 10 mg PO DAILY 03/20/19 09/13/22 cholecalciferol (vitamin D3) 1,250 50,000 unit PO WEEKLY 03/20/19 09/13/22 mcg (50,000 unit) tablet cyanocobalamin (vitamin B-12) 1,000 mcg PO DAILY 03/20/19 09/13/22 1,000 mcg capsule donepezil 10 mg tablet 10 mg PO HS 03/20/19 09/13/22 polyethylene glycol 3350 17 17 g PO DAILY PRN Constipation 03/20/19 09/13/22 gram/dose oral powder (Miralax) aripiprazole 2 mg tablet (Abilify) 2 mg PO DAILY 07/16/21 09/13/22 docusate sodium 100 mg capsule 100 mg PO DAILY 07/16/21 04/04/22 (Colace) duloxetine 60 mg capsule,delayed 60 mg PO DAILY 07/16/21 09/13/22 release famotidine 20 mg disintegrating 20 mg PO BID 07/16/21 09/13/22 tablet ferrous sulfate 325 mg (65 mg 325 mg PO DAILY 07/16/21 09/13/22 iron) tablet,delayed release lamotrigine 100 mg tablet 100 mg PO DAILY 07/16/21 09/13/22 levetiracetam 250 mg tablet 250 mg PO BID 07/16/21 09/13/22 (Keppra) loratadine 10 mg tablet (Allergy 10 mg PO DAILY 07/16/21 09/13/22 Relief (loratadine)) melatonin 3 mg tablet 3 mg PO HS 07/16/21 09/13/22 pantoprazole 40 mg tablet,delayed 20 mg PO DAILY 07/16/21 09/13/22 release rivaroxaban 20 mg tablet (Xarelto) 20 mg PO DAILY 07/16/21 09/13/22 cranberry fruit 450 mg tablet 450 mg PO DAILY 04/05/22 09/13/22 (cranberry) fluticasone propionate 50 2 spray intranasal DAILY 04/05/22 09/13/22 mcg/actuation nasal spray,suspension (Allergy Relief (fluticasone)) mirabegron 25 mg tablet,extended 25 mg PO DAILY 04/05/22 09/13/22 release 24 hr (Myrbetriq) Marisol-Tussin 5 ml PO Q6H PRN Congestion 09/13/22 09/13/22 acetaminophen 325 mg tablet 325 mg PO Q4H PRN Pain (Scale 09/13/22 09/13/22 Score 1-3) furosemide 20 mg tablet 20 mg PO DAILY 09/13/22 09/13/22 lorazepam 0.5 mg tablet 0.5 mg PO DAILY 09/13/22 09/13/22 magnesium oxide 1 tablet PO DAILY 09/13/22 09/13/22 potassium chloride 20 mEq 20 meq PO BID 09/13/22 09/13/22 tablet,extended release(part/cryst) (Klor-Con M) Allergies Allergy/AdvReac Type Severity Reaction Status Date / Time sertraline Allergy Severe Unknown Verified 09/13/22 09:43 hydromorphone Allergy Intermediate Unknown Verified 09/13/22 09:43 Review of Systems Review of Systems: CONSTITUTIONAL: Denies fever, chills, or sweats. CARDIOVASCULAR: Denies chest pain, palpitations, or edema. RESPIRATORY: Denies cough or dyspnea. GASTROINTESTINAL: Suprapubic abdominal pain denies nausea, vomiting, or diarrhea. GENITOURINARY: Denies dysuria or hematuria. SKIN: Denies rash or itching. MUSCULOSKELETAL: Denies back pain, joint pain, or myalgia. NEUROLOGIC: Denies headache, numbness, dizziness, or weakness. PSYCHIATRIC: Denies anxiety or depression. COUNTS INCLUDE 234 BEDS AT THE [facility] Past Medical History Medical History (Updated 09/13/22 @ 19:41 by Magan Xiong MD) Alzheimers disease Anxiety Congestive heart failure Dementia Follows with neurologist, Dr. Galindo. Litzy
[2022-09-13] MEDS: ONDANSETRON INJ 4 MG/2 ML VIAL IV PUSH (10:11)
[2022-09-13] MEDS: SODIUM CHLORIDE 0.9% IV 1,000 ML 999 ML IV CONT (10:11)
[2022-09-13 10:26] LABS: Basophils Percent Auto 0.4 % (0.2-1.2); Eosinophils Absolute Auto 0.1 K/mm3 (0-0.3); Eosinophils Percent Auto 1.2 % (0-4.4); Immature Granulocyte Absolute 0.03 K/mm3 (0.00-0.031); Immature Granulocyte Percent A 0.5 % (0-0.5); Lymphocytes Absolute Auto 1.07 K/mm3 (0.9-3.2); Mean Corpuscular HGB Conc 29.3 g/dl (32-36); Mean Corpuscular Hemoglobin 32.2 pg (26-34); Mean Corpuscular Volume 109.8 fl (80-100); Mean Platelet Volume 9.1 fl (7.4-10.4); Monocytes Absolute Auto 0.5 K/mm3 (0.1-0.6); Neutrophils Percent Auto 70.9 % (45.5-73.1); Nucleated Red Blood Cells Absolute Auto 0.1 K/mm3 (0.0-0.012); Nucleated Red Blood Cells Perc 1.1 % (0.0-0.2); Platelet Count Result 281 k/mm3 (150-375); Red Blood Count 1.74 M/mm3 (4.2-5.4); Red Cell Distribution Width 17.4 % (11.5-14.5); White Blood Count 5.6 K/mm3 (4.5-10.0)
[2022-09-13 10:34] LABS: INR 1.4; Prothrombin Time 17.5 Seconds (11.1-14.7)
[2022-09-13 10:40] LABS: Hematocrit 19.1 % (37.0-47.0); Hemoglobin 5.6 g/dL (12.0-15.0)
[2022-09-13 10:41] LABS: Alanine Aminotransferase 16 U/L (6-35); Albumin Level 3.4 g/dL (3.5-5.1); Alkaline Phosphatase 68 U/L (38-126); Anion Gap 6 mmol/L (8-16); Anisocytosis 1+ (NORMAL); Aspartate Amino Transferase 23 U/L (14-36); Bilirubin,Total 0.4 mg/dL (0.2-1.3); Blood Urea Nitrogen 23 mg/dL (7-17); Calcium 8.5 mg/dL (8.4-10.2); Carbon Dioxide 27 mmol/L (22-30); Chloride 104 mmol/L (98-107); Estimated CRCL calculation 29 ml/min; Estimated Glomerular Filt Rate 39; Glucose 113 mg/dL (65-110); Lactic Acid Reflex 2.1 mmol/L (0.7-2.0); Platelet Estimate Adequate (Adequate); Potassium 4.3 mmol/L (3.4-5.0); Schistocytes None Seen (NORMAL); Sodium 137 mmol/L (137-145)
[2022-09-13 10:44] LABS: Appearance Urine Clear (Clear); Bacteria Urine None Seen /hpf; Bilirubin Urine Negative (Negative); Blood Urine Negative (Negative); Color Urine Yellow (Yellow); Glucose Urine UA Negative (Negative); Ketones Urine Negative (Negative); Leukocyte Esterase Ur 3+ LEU/UL (Negative); Need Manual Microscopic Reviewed; Nitrate Urine Negative (Negative); Non Pathogenic Casts 0-2; Protein Urine Negative (Negative); RBC Urine 0-2 /hpf (0-2); Specific Grav Ur 1.019 (1.001-1.035); Squamous Epithelial Cell Urine None seen /hpf (Few); Urobilinogen Urine 0.2 mg/dL (<2.0); WBC Urine >100 /hpf
[2022-09-13 10:57] LABS: Add Urine Microscopic? YES; Troponin I < 0.012 ng/mL (0.000-0.034)
[2022-09-13] MEDS: PANTOPRAZOLE SODIUM IV 40 MG VIAL 80 MG IV PUSH (11:11)
--- NOTE | 2022-09-13 12:35 | WPDGICN ---
Assessment and Plan Assessment and plan (1) Anemia: Code(s): D64.9 - Anemia, unspecified Status: Acute Assessment and Plan: It is unclear if this anemia is due to blood loss but given the fact that this is a recurrent problem I suspect she has some sort of gastrointestinal bleed. EGD was done over a year ago that was unremarkable except for showing changes of acid reflux. To my knowledge she has never had a colonoscopy. (2) GI bleed: Code(s): K92.2 - Gastrointestinal hemorrhage, unspecified Status: Acute Assessment and Plan: Known had seen her stools are looser is no record of it. She states that her bowel movement was difficult today. Will probably start clear liquid diet and consider prepping her for colonoscopy (3) Paroxysmal atrial fibrillation: Code(s): I48.0 - Paroxysmal atrial fibrillation Status: Chronic Assessment and Plan: Chronically on Xarelto but will hold this for now GI Consult Note Consult date/time: 09/13/22 12:35 HPI: Kenton Wilhelm is a 81 year old female was brought to the emergency room from from her half-way [facility]. She has been on the commode having difficulty having a bowel movement. She then became lightheaded and the staff assisted her up. She was found have a blood pressure initially very low with a systolic in the 60s. She does not remember passing out. She did not get a good look at her bowel movements. She is severely anemic now with a hemoglobin of 5.6. She usually runs around 9. MCV is actually elevated. She is on Xarelto 20 mg daily and has been for a while because of atrial fibrillation. I had seen her when she was hospitalized just over a year ago with anemia and EGD was rather unremarkable with no sign of bleeding she did have a hiatal hernia. Colonoscopy was not done at that time as her stool actually was brown. She cannot recall if she ever has had a colonoscopy. Review of Systems Review of Systems: All systems reviewed & are unremarkable except as noted in HPI and below [facility] Past Medical History Medical History (Updated 09/14/22 @ 13:55 by Marti Zaman PA-C) Alzheimers disease Anxiety Chronic anticoagulation Congestive heart failure Dementia Follows with neurologist, Dr. Galindo. 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 Osteoporosis Paroxysmal atrial fibrillation Schizoaffective disorder Seizure disorder Thoracic compression fracture T10 Vitamin D deficiency Surgical History Surgical History (Updated 09/13/22 @ 15:04 by Marti Zaman PA-C) History of arthroscopy of left shoulder History of bladder suspension procedure History of hysterectomy History of total left hip arthroplasty (2016) Family History Family History Sibling Dementia Cerebrovascular accident Sibling Acute myocardial infarction Mother Cirrhosis Father Emphysema of lung Social History Social History Social History: The patient is . Patient resides at [facility]. She has a state IDPA form on the chart and indicates her code status is DNR. She denies any alcohol or other substance use. Former smoker quit in 1979. Smoking packs per day: 1 Smoking cigarettes per day: 20.0 Years smoked: 10 Smoking pack-years: 10.00 Smoking status: Never smoker Tobacco type: cigarettes Smoking end date: 05/08/79 Alcohol intake: never Substance use: never Substance use type: does not use Lack of Transportation: No Lack of Food: Never True Current Housing: I Have Housing Concerned About Future Housing: No Difficulty Paying [place]
[2022-09-13 13:21] LABS: Reflex Lactic Acid Yes or No Add Lactic
[2022-09-13 13:36] LABS: Hematocrit 18.7 % (37.0-47.0); Hemoglobin 5.5 g/dL (12.0-15.0)
[2022-09-13 14:16] LABS: Iron 19 ug/dL (37-170)
[2022-09-13 14:34] LABS: Percent Iron Saturation 5 % (20-50)
--- NOTE | 2022-09-13 14:40 | PM.IMHP ---
H&P: HPI History of Present Illness Date/Time: 09/13/22 12:45 Chief Complaint: Weak and dizzy. Narrative: This is an 81-year-old female with dementia, seizures, paroxysmal atrial fibrillation on anticoagulation, congestive heart failure, hyperlipidemia, gastroesophageal reflux disease, and iron deficiency anemia who presented to the emergency department via EMS for evaluation of weakness. The patient provides the following history though she is a bit forgetful and some of the following is supplemented via a review of her electronic medical records. According to EMS the patient was attempting to stand from the toilet when she became extremely weak. She was feeling hot, shaky, lightheaded, and nauseated and she reports that ?sweat was pouring off me. longterm staff noted that her blood pressure was 60/45 and they were luckily able to prevent her from falling and there were no reports of loss of consciousness. On EMS arrival she was complaining of generalized abdominal discomfort which she describes as cramping and occasionally sharp in nature though she has no such complaints at the time of my evaluation. She denies fever, cold and flu symptoms, chest pain, pleuritic pain, shortness a breath, epigastric and abdominal pain, bloating, belching, nausea, vomiting, and diarrhea. She reports having normal bowel movement this morning but she does occasionally have to strain to have bowel movements. Workup in the ED was significant for a hemoglobin of 5.6 and her stool was Hemoccult positive.? She is being admitted in this setting for blood transfusion and GI consultation. Currently she has no specific complaints and she is resting comfortably. She does mention some mild dysuria over the past couple of days however.? Review of Systems Review of Systems: Twelve systems were reviewed and are negative except for as per HPI. [facility] Past Medical History Medical History (Updated 09/14/22 @ 13:55 by Marti Zaman PA-C) Alzheimers disease Anxiety Chronic anticoagulation Congestive heart failure Dementia Follows with neurologist, Dr. Galindo. 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 Osteoporosis Paroxysmal atrial fibrillation Schizoaffective disorder Seizure disorder Thoracic compression fracture T10 Vitamin D deficiency Surgical History Surgical History (Updated 09/13/22 @ 15:04 by Marti Zaman PA-C) History of arthroscopy of left shoulder History of bladder suspension procedure History of hysterectomy History of total left hip arthroplasty (2016) Family History Family History Sibling Dementia Cerebrovascular accident Sibling Acute myocardial infarction Mother Cirrhosis Father Emphysema of lung Social History Social History Social History: The patient is . Patient resides at [facility]. She has a state IDPA form on the chart and indicates her code status is DNR. She denies any alcohol or other substance use. Former smoker quit in 1979. Smoking packs per day: 1 Smoking cigarettes per day: 20.0 Years smoked: 10 Smoking pack-years: 10.00 Smoking status: Never smoker Tobacco type: cigarettes Smoking end date: 05/08/79 Alcohol intake: never Substance use: never Substance use type: does not use Lack of Transportation: No Lack of Food: Never True Current Housing: I Have Housing Concerned About Future Housing: No Difficulty Paying Gas/Electric Bills: No Difficulty Paying for Meds: No Currently Unemployed: No Education: Decline to Answer Difficulty w/ Childcare or Family Care: No Living arrangements: nursing
--- NOTE | 2022-09-13 14:47 | ADMGEN ---
This patient, Kenton Wilhelm, was admitted to [facility] Surg Room 304-02. Patient/family oriented to hospital policies and general routines including ID bracelet, bed and alarms, visiting hours, pain management, procedures, bathroom and other care routines, personal items, smoking policy, room service/diet, and visiting hours. Information on how to activate the Rapid Response Team has been discussed. Patient/Family are encouraged to report perceived risks to care and to ask questions if they do not understand what they are told or what they should do.
[2022-09-13 14:56] LABS: Folic Acid > 20.0 ng/mL (2.76->20)
[2022-09-13 15:05] LABS: Hemoglobin 5.5 g/dL (12.0-15.0)
[2022-09-13 15:10] LABS: Lactic Acid 0.9 mmol/L (0.7-2.0)
[2022-09-13 15:23] LABS: Troponin I < 0.012 ng/mL (0.000-0.034)
[2022-09-13 19:03] LABS: Hematocrit 24.5 % (37.0-47.0); Hemoglobin 7.4 g/dL (12.0-15.0)
[2022-09-13 19:21] LABS: Troponin I < 0.012 ng/mL (0.000-0.034)
[2022-09-14] VITALS (11 sets, daily range): BP systolic 134–165; BP diastolic 54–72; PULSE 66–79; RESP 16–20; TEMP 35.8–36.9; O2SAT 96–100
[2022-09-14 06:46] LABS: Sodium 136 mmol/L (137-145)
[2022-09-14 06:47] LABS: Blood Urea Nitrogen 13 mg/dL (7-17); Carbon Dioxide 25 mmol/L (22-30); Estimated CRCL calculation 34 ml/min; Estimated Glomerular Filt Rate 47; Hematocrit 28.3 % (37.0-47.0); Hemoglobin 8.9 g/dL (12.0-15.0)
[2022-09-14 07:06] LABS: Anion Gap 3 mmol/L (8-16); Calcium 8.1 mg/dL (8.4-10.2); Chloride 108 mmol/L (98-107); Glucose 87 mg/dL (65-110); Potassium 4.5 mmol/L (3.4-5.0)
--- NOTE | 2022-09-14 07:06 | PC.NURSE ---
[facility] downtime beginning 09/13/22 at 2145 through 09/14/22 at 0615.
[2022-09-14 07:51] LABS: Anion Gap 4 mmol/L (8-16); Blood Urea Nitrogen 13 mg/dL (7-17); Calcium 8.2 mg/dL (8.4-10.2); Carbon Dioxide 25 mmol/L (22-30); Chloride 107 mmol/L (98-107); Estimated CRCL calculation 34 ml/min; Estimated Glomerular Filt Rate 47; Glucose 85 mg/dL (65-110); Magnesium 2.4 mg/dL (1.6-2.3); Potassium 4.3 mmol/L (3.4-5.0); Sodium 136 mmol/L (137-145)
[2022-09-14] MEDS: MIRABEGRON 25 MG ER TABLET PO (09:24)
[2022-09-14] MEDS: MAGNESIUM OXIDE 400 MG TABLET PO (09:24)
[2022-09-14] MEDS: ARIPiprazole 2 MG TABLET PO (09:24)
[2022-09-14] MEDS: FAMOTIDINE 20 MG TABLET PO ×2 (09:24→20:27)
[2022-09-14] MEDS: lamoTRIgine 100 MG TABLET PO (09:24)
[2022-09-14] MEDS: levETIRAcetam 250 MG TABLET PO ×2 (09:24→17:01)
[2022-09-14] MEDS: CYANOCOBALAMIN 1,000 MCG TABLET 1000 MCG PO (09:24)
[2022-09-14] MEDS: DULoxetine HCL 60 MG CAPSULE.DR PO (09:24)
[2022-09-14] MEDS: PANTOPRAZOLE SODIUM IV 40 MG VIAL IV PUSH ×2 (09:25→20:28)
[2022-09-14] MEDS: LORazepam (*CRX) 0.5 MG TABLET PO (09:28)
[2022-09-14 10:00] LABS: Hematocrit 28.4 % (37.0-47.0); Mean Corpuscular HGB Conc 31.7 g/dl (32-36); Mean Corpuscular Hemoglobin 31.7 pg (26-34); Mean Platelet Volume 9.4 fl (7.4-10.4); Platelet Count Result 258 k/mm3 (150-375); Red Blood Count 2.84 M/mm3 (4.2-5.4)
[2022-09-14] MEDS: BISACODYL 5 MG TABLET EC 10 MG PO ×3 (12:23→20:27)
[2022-09-14 12:33] LABS: Hematocrit 29.8 % (37.0-47.0); Hemoglobin 9.4 g/dL (12.0-15.0)
--- NOTE | 2022-09-14 12:49 | PM.IMPN ---
Progress Note: A&P Assessment and Plan (1) Acute blood loss anemia: Code(s): D62 - Acute posthemorrhagic anemia Status: Acute Assessment and Plan: Patient complained of weakness and found to have a hemoglobin of 5.6. She does have a chronic underlying anemia with baseline hemoglobin in the 9 range. Iron studies consistent with iron deficiency. CT abdomen pelvis did not show any significant findings to explain the anemia. She was transfused. GI was consulted. Hemoglobin has climbed to the 9 range since transfusion. Continue to follow. (2) GI bleed: Qualifiers: GI bleed type/associated pathology: unspecified gastrointestinal hemorrhage type Qualified Code(s): K92.2 - Gastrointestinal hemorrhage, unspecified Code(s): K92.2 - Gastrointestinal hemorrhage, unspecified Status: Acute Assessment and Plan: Patient was seen by GI. Plan is for colonoscopy in the morning. Prep has been ordered. (3) Congestive heart failure: Code(s): I50.9 - Heart failure, unspecified Status: Acute Assessment and Plan: Stable. Appears euvolemic clinically. Continue to follow. (4) Dementia: Code(s): F03.90 - Unspecified dementia, unspecified severity, without behavioral disturbance, psychotic disturbance, mood disturbance, and anxiety Status: Acute Assessment and Plan: Stable. Continue Aricept. (5) Paroxysmal atrial fibrillation: Code(s): I48.0 - Paroxysmal atrial fibrillation Status: Chronic Assessment and Plan: Patient has paroxysmal atrial fibrillation. She is on Xarelto chronically which has been held. Her aspirin also has been held. She is not on rate controlling agents. Telemetry showing PVCs. Continue to monitor. (6) Schizoaffective disorder: Qualifiers: Schizoaffective disorder type: unspecified Qualified Code(s): F25.9 - Schizoaffective disorder, unspecified Code(s): F25.9 - Schizoaffective disorder, unspecified Status: Chronic Assessment and Plan: Mood stable. Will resume her Abilify. (7) Seizure disorder: Code(s): G40.909 - Epilepsy, unspecified, not intractable, without status epilepticus Status: Chronic Assessment and Plan: Stable. Continue Lamictal and Keppra. Subjective Date/time seen: 09/14/22 12:49 Interval history: 81yo female with dementia, CHF, HTN, seizure d/o and schizoaffective d/o here for weakness and found to be anemic. Assuming care. Chart reviewed. Patient feels well today. No chest pain or shortness of breath. No nausea or vomiting. She has a nonproductive cough. Exam Narrative: AF 96.8 141/57 79 16 97% ra Gen - NARD Chest - R>L bibasilar inspiratory crackles. nml RR CV - RRR S1/S2 with 2/6 systolic murmur t/o the precordium and to the carotids. Telemetry showing PVCs. Abd - Soft, NT/ND, Positive BS Ext - No pedal edema Psych - Nml mood and affect Skin - Warm and dry Objective Data Vital Signs Vital Signs: Vital Signs - 24 hr 09/13/22 13:52 09/13/22 14:05 09/13/22 14:13 Temperature 97.2 F L Pulse Rate 80 72 Respiratory Rate 18 18 Blood Pressure 154/60 H Pulse Oximetry 100 100 100 Oxygen Delivery Room Air 09/13/22 16:00 09/13/22 14:10 09/13/22 15:45 Temperature 96.4 F L 97.2 F L Pulse Rate 69 66 Respiratory Rate 16 18 Blood Pressure 145/50 H 154/54 H Pulse Oximetry 100 100 Oxygen Delivery Room Air 09/13/22 16:00 09/13/22 17:00 09/13/22 18:00 Temperature 97.9 F 96.8 F L 97.1 F L Pulse Rate 74 73 84 Respiratory Rate 18 16 16 Blood Pressure 131/62 135/52 L 134/69 Pulse Oximetry 100 100 100 Oxygen Delivery 09/13/22 18:20 09/13/22 18:45 09/13/22 19:00 Temperature 97.1 F L 97.0 F L 97.9 F Pulse Rate 71 69 71 Respiratory Rate 18 18 18 Blood Pressure 122/96 H 155/53 H 150/54 H Pulse Oximetry 96 100 99 Oxygen Delivery 09/13/22 16:00 09/13
[2022-09-14] MEDS: polyethylene glycoL 3350 238 GM BOTTLE PO (17:00)
[2022-09-14] MEDS: ATORVASTATIN 10 MG TABLET PO (17:01)
[2022-09-14 18:35] LABS: Hematocrit 29.3 % (37.0-47.0); Hemoglobin 9.2 g/dL (12.0-15.0)
[2022-09-14] MEDS: DONEPEZIL HCL 10 MG TABLET PO (20:27)
[2022-09-14] MEDS: MELATONIN 3 MG TABLET PO (20:28)
[2022-09-15] VITALS (10 sets, daily range): BP systolic 140–165; BP diastolic 55–81; PULSE 61–76; RESP 16–26; TEMP 36.1–36.6; O2SAT 98–100
[2022-09-15 00:59] LABS: Hematocrit 29.1 % (37.0-47.0); Hemoglobin 9.3 g/dL (12.0-15.0)
--- NOTE | 2022-09-15 06:06 | PC.NURSE ---
At 05:59, the patient fully finished the bowel prep, Dr. Peacock notified and will continue to monitor.
[2022-09-15 06:43] LABS: Basophils Percent Auto 0.4 % (0.2-1.2); Eosinophils Absolute Auto 0.3 K/mm3 (0-0.3); Eosinophils Percent Auto 5.1 % (0-4.4); Hematocrit 30.4 % (37.0-47.0); Hemoglobin 9.4 g/dL (12.0-15.0); Immature Granulocyte Absolute 0.03 K/mm3 (0.00-0.031); Immature Granulocyte Percent A 0.6 % (0-0.5); Lymphocytes Percent Auto 25.5 % (18.3-44.2); Mean Corpuscular HGB Conc 30.9 g/dl (32-36); Mean Corpuscular Hemoglobin 30.9 pg (26-34); Mean Platelet Volume 9.1 fl (7.4-10.4); Monocytes Absolute Auto 0.5 K/mm3 (0.1-0.6); Monocytes Percent Auto 9.6 % (2.6-8.5); Neutrophils Percent Auto 58.8 % (45.5-73.1); Platelet Count Result 252 k/mm3 (150-375); Red Blood Count 3.04 M/mm3 (4.2-5.4); Red Cell Distribution Width 19.1 % (11.5-14.5); White Blood Count 5.1 K/mm3 (4.5-10.0)
[2022-09-15 07:01] LABS: Albumin Level 3.4 g/dL (3.5-5.1); Anion Gap 8 mmol/L (8-16); Blood Urea Nitrogen 8 mg/dL (7-17); Carbon Dioxide 23 mmol/L (22-30); Chloride 107 mmol/L (98-107); Estimated CRCL calculation 37 ml/min; Estimated Glomerular Filt Rate 53; Glucose 102 mg/dL (65-110); Magnesium 2.2 mg/dL (1.6-2.3); Phosphorus 3.9 mg/dL (2.5-4.5); Potassium 3.8 mmol/L (3.4-5.0); Sodium 138 mmol/L (137-145)
[2022-09-15] MEDS: PANTOPRAZOLE SODIUM IV 40 MG VIAL IV PUSH ×2 (08:29→20:20)
[2022-09-15] MEDS: lamoTRIgine 100 MG TABLET PO (08:29)
[2022-09-15] MEDS: levETIRAcetam 250 MG TABLET PO ×2 (08:29→17:07)
--- NOTE | 2022-09-15 10:30 | PM.IMPN ---
Progress Note: A&P Assessment and Plan (1) Acute blood loss anemia: Code(s): D62 - Acute posthemorrhagic anemia Status: Acute Assessment and Plan: Patient complained of weakness and found to have a hemoglobin of 5.6. She does have a chronic underlying anemia with baseline hemoglobin in the 9 range. Iron studies consistent with iron deficiency. CT abdomen pelvis did not show any significant findings to explain the anemia. She was transfused. GI was consulted. Hemoglobin has climbed to the 9 range and stable. Continue to follow. (2) GI bleed: Qualifiers: GI bleed type/associated pathology: unspecified gastrointestinal hemorrhage type Qualified Code(s): K92.2 - Gastrointestinal hemorrhage, unspecified Code(s): K92.2 - Gastrointestinal hemorrhage, unspecified Status: Acute Assessment and Plan: Patient was seen by GI. Plan is for colonoscopy this morning. Colonoscopy: large amount of stool in rectum and retaiined stool in the colon. Plan for repeat prep and colonoscopy in the morning (3) Congestive heart failure: Code(s): I50.9 - Heart failure, unspecified Status: Acute Assessment and Plan: Stable. Appears euvolemic clinically. Continue to follow. (4) Dementia: Code(s): F03.90 - Unspecified dementia, unspecified severity, without behavioral disturbance, psychotic disturbance, mood disturbance, and anxiety Status: Acute Assessment and Plan: Stable. Continue Aricept. (5) Paroxysmal atrial fibrillation: Code(s): I48.0 - Paroxysmal atrial fibrillation Status: Chronic Assessment and Plan: Patient has paroxysmal atrial fibrillation. She is on Xarelto chronically which has been held. Her aspirin also has been held. She is not on rate controlling agents. Continue to monitor. Okay to stop tele (6) Schizoaffective disorder: Qualifiers: Schizoaffective disorder type: unspecified Qualified Code(s): F25.9 - Schizoaffective disorder, unspecified Code(s): F25.9 - Schizoaffective disorder, unspecified Status: Chronic Assessment and Plan: Mood stable. Continue Abilify. (7) Seizure disorder: Code(s): G40.909 - Epilepsy, unspecified, not intractable, without status epilepticus Status: Chronic Assessment and Plan: Stable. Continue Lamictal and Keppra. (8) UTI (urinary tract infection): Code(s): N39.0 - Urinary tract infection, site not specified Status: Acute Assessment and Plan: UA noted. UCx growing ESBL EColi but only 10-49K colonies. Hx of EColi bacteremia. CT scan shows normal kidneys and bladder. Was on Rocephin but change to Augmentin given the low inoculum and that Nitrofruantoin is contraindicated with CrCl 37. Follow Subjective Date/time seen: 09/15/22 10:30 Interval history: 81yo female with dementia, CHF, HTN, seizure d/o and schizoaffective d/o here for weakness and found to be anemic. No CP or SOB. No n/v. Feels well. Exam Narrative: AF 97.9 159/81 73 18 100% ra Gen - NARD Chest - bibasilar inspiratory crackles. nml RR CV - RRR S1/S2. Telemetry showing PVCs. Abd - Soft, ND, minor LLQ pain but no guarding. Ext - No pedal edema Psych - Nml mood and affect Skin - Warm and dry Objective Data Vital Signs Vital Signs: Vital Signs - 24 hr 09/14/22 11:55 09/14/22 15:51 09/14/22 12:00 Temperature 96.8 F L 96.9 F L Pulse Rate 79 74 69 Respiratory Rate 16 16 Blood Pressure 141/57 H 145/62 H Pulse Oximetry 97 98 Oxygen Delivery 09/14/22 16:00 09/14/22 20:00 09/14/22 21:21 Temperature 97.5 F L Pulse Rate 73 74 Respiratory Rate 20 Blood Pressure 165/56 H 142/72 H Pulse Oximetry 100 Oxygen Delivery 09/15/22 00:00 09/14/22 20:00 09/14/22 20:00 Temperature 97.0 F L Pulse Rate 71 68 Respiratory Rate 18 Blood Pressure 146/62 H Pulse Oximetry
[2022-09-15] MEDS: LACTATED RINGERS 1,000 ML 150 ML IV CONT (11:23)
--- NOTE | 2022-09-15 11:46 | WPDANESEPPF ---
Anes - Initial Pre Proc Eval Procedure: Operation Date: 09/15/22 12:00 Proposed Procedures p Colonoscopy - Alexy Vicente MD Date/Time: 09/15/22 11:46 Surgeon: Kaden Cabrera MD Pre Op Diagnosis: GI Bleed Patient Data Age: 81 Gender: F Height: 1.6 m Weight: 74.6 kg Last Vital Signs Temp 97.9 F 09/15/22 11:16 Pulse 72 09/15/22 11:16 Resp 20 09/15/22 11:16 BP 154/57 H 09/15/22 11:16 Pulse Ox 99 09/15/22 11:16 O2 Del Method Room Air 09/15/22 11:16 Allergies Allergy/AdvReac Type Severity Reaction Status Date / Time sertraline Allergy Severe Unknown Verified 09/13/22 09:43 hydromorphone Allergy Intermediate Unknown Verified 09/13/22 09:43 Home Medications Medication Instructions Recorded Confirmed Type aspirin 81 mg tablet,delayed 81 mg PO DAILY 03/20/19 09/13/22 History release atorvastatin 10 mg tablet 10 mg PO DAILY 03/20/19 09/13/22 History cholecalciferol (vitamin D3) 1,250 50,000 unit PO WEEKLY 03/20/19 09/13/22 History mcg (50,000 unit) tablet cyanocobalamin (vitamin B-12) 1,000 mcg PO DAILY 03/20/19 09/13/22 History 1,000 mcg capsule donepezil 10 mg tablet 10 mg PO HS 03/20/19 09/13/22 History polyethylene glycol 3350 17 17 g PO DAILY PRN Constipation 03/20/19 09/13/22 History gram/dose oral powder (Miralax) aripiprazole 2 mg tablet (Abilify) 2 mg PO DAILY 07/16/21 09/13/22 History docusate sodium 100 mg capsule 100 mg PO DAILY 07/16/21 09/13/22 History (Colace) duloxetine 60 mg capsule,delayed 60 mg PO DAILY 07/16/21 09/13/22 History release famotidine 20 mg disintegrating 20 mg PO BID 07/16/21 09/13/22 History tablet ferrous sulfate 325 mg (65 mg 325 mg PO DAILY 07/16/21 09/13/22 History iron) tablet,delayed release lamotrigine 100 mg tablet 100 mg PO DAILY 07/16/21 09/13/22 History levetiracetam 250 mg tablet 250 mg PO BID 07/16/21 09/13/22 History (Keppra) loratadine 10 mg tablet (Allergy 10 mg PO DAILY 07/16/21 09/13/22 History Relief (loratadine)) melatonin 3 mg tablet 3 mg PO HS 07/16/21 09/13/22 History pantoprazole 40 mg tablet,delayed 20 mg PO DAILY 07/16/21 09/13/22 History release rivaroxaban 20 mg tablet (Xarelto) 20 mg PO DAILY 07/16/21 09/13/22 History cranberry fruit 450 mg tablet 450 mg PO DAILY 04/05/22 09/13/22 History (cranberry) fluticasone propionate 50 2 spray intranasal DAILY 04/05/22 09/13/22 History mcg/actuation nasal spray,suspension (Allergy Relief (fluticasone)) mirabegron 25 mg tablet,extended 25 mg PO DAILY 04/05/22 09/13/22 History release 24 hr (Myrbetriq) Marisol-Tussin 5 ml PO Q6H PRN Congestion 09/13/22 09/13/22 History acetaminophen 325 mg tablet 325 mg PO Q4H PRN Pain (Scale 09/13/22 09/13/22 History Score 1-3) furosemide 20 mg tablet 20 mg PO DAILY 09/13/22 09/13/22 History lorazepam 0.5 mg tablet 0.5 mg PO DAILY 09/13/22 09/13/22 History magnesium oxide 1 tablet PO DAILY 09/13/22 09/13/22 History potassium chloride 20 mEq 20 meq PO BID 09/13/22 09/13/22 History tablet,extended release(part/cryst) (Klor-Con M) Laboratory Tests 09/14/22 09/14/22 09/15/22 12:05 18:24 00:25 WBC RBC Hgb 9.4 L g/dL 9.2 L g/dL 9.3 L g/dL (12.0-15.0) (12.0-15.0) (12.0-15.0) Hct 29.8 L % 29.3 L % 29.1 L % (37.0-47.0) (37.0-47.0) (37.0-47.0) MCV MCH MCHC RDW Plt Count MPV Immature Gran % (Auto) Neut % (Auto) Lymph % (Auto) [place] % (Auto) Eos % (Auto) Baso % (Auto) Lymph # (Auto) [place] # (Auto) Eos # (Auto) Baso # (Auto) Abs Immat Gran (auto) Absolute Neuts (auto) Absolute Nucleated RBC Nucleated RBC % Sodium Potassium Chloride Carbon Dioxide
[2022-09-15] MEDS: ARIPiprazole 2 MG TABLET PO (13:51)
[2022-09-15] MEDS: MIRABEGRON 25 MG ER TABLET PO (13:51)
[2022-09-15] MEDS: MAGNESIUM OXIDE 400 MG TABLET PO (13:51)
[2022-09-15] MEDS: AMOXICILLIN/CLAVULANATE K 875-125 MG TAB 1 TABLET PO ×2 (13:51→20:20)
[2022-09-15] MEDS: FAMOTIDINE 20 MG TABLET PO ×2 (13:52→20:20)
[2022-09-15] MEDS: CYANOCOBALAMIN 1,000 MCG TABLET 1000 MCG PO (13:52)
[2022-09-15] MEDS: DULoxetine HCL 60 MG CAPSULE.DR PO (13:52)
[2022-09-15] MEDS: PEG (High)/E-LYTE SOLN 4,000 ML BTL 4000 ML PO (13:55)
[2022-09-15] MEDS: ATORVASTATIN 10 MG TABLET PO (17:08)
[2022-09-15] MEDS: DONEPEZIL HCL 10 MG TABLET PO (20:20)
[2022-09-16] VITALS (10 sets, daily range): BP systolic 110–144; BP diastolic 47–74; PULSE 66–78; RESP 16–24; TEMP 35.7–36.3; O2SAT 18–100
[2022-09-16 06:11] LABS: Hematocrit 32.1 % (37.0-47.0); Hemoglobin 10.1 g/dL (12.0-15.0); Mean Corpuscular HGB Conc 31.5 g/dl (32-36); Mean Corpuscular Hemoglobin 30.7 pg (26-34); Mean Corpuscular Volume 97.6 fl (80-100); Mean Platelet Volume 9.3 fl (7.4-10.4); Platelet Count Result 229 k/mm3 (150-375); Red Blood Count 3.29 M/mm3 (4.2-5.4); Red Cell Distribution Width 17.5 % (11.5-14.5); White Blood Count 5.5 K/mm3 (4.5-10.0)
[2022-09-16 06:21] LABS: Anion Gap 5 mmol/L (8-16); Blood Urea Nitrogen 3 mg/dL (7-17); Calcium 8.2 mg/dL (8.4-10.2); Carbon Dioxide 27 mmol/L (22-30); Chloride 105 mmol/L (98-107); Estimated CRCL calculation 40 ml/min; Estimated Glomerular Filt Rate 60; Glucose 90 mg/dL (65-110); Potassium 3.6 mmol/L (3.4-5.0); Sodium 137 mmol/L (137-145)
[2022-09-16] MEDS: ARIPiprazole 2 MG TABLET PO (08:38)
[2022-09-16] MEDS: FAMOTIDINE 20 MG TABLET PO ×2 (08:38→21:37)
[2022-09-16] MEDS: PANTOPRAZOLE SODIUM IV 40 MG VIAL IV PUSH ×2 (08:38→21:37)
[2022-09-16] MEDS: DULoxetine HCL 60 MG CAPSULE.DR PO (08:38)
[2022-09-16] MEDS: AMOXICILLIN/CLAVULANATE K 875-125 MG TAB 1 TABLET PO (08:38)
[2022-09-16] MEDS: CYANOCOBALAMIN 1,000 MCG TABLET 1000 MCG PO (08:38)
[2022-09-16] MEDS: MIRABEGRON 25 MG ER TABLET PO (08:39)
[2022-09-16] MEDS: lamoTRIgine 100 MG TABLET PO (08:39)
[2022-09-16] MEDS: MAGNESIUM OXIDE 400 MG TABLET PO (08:39)
[2022-09-16] MEDS: levETIRAcetam 250 MG TABLET PO ×2 (08:39→16:26)
--- NOTE | 2022-09-16 10:53 | WPDANESPN ---
Anes - Prog Note Post-Op Date/Time: 09/16/22 10:53 Cardiovascular status: normal Respiratory status: normal Airway patency: baseline Mental status: baseline Post-Op hydration status: normal Vital Signs: Last Vital Signs Temp 36.3 C L 09/16/22 04:00 Pulse 75 09/16/22 04:00 Resp 16 09/16/22 04:00 BP 133/58 L 09/16/22 04:00 Pulse Ox 100 09/16/22 04:00 O2 Del Method Room Air 09/16/22 08:35 Pain Score (VAS): 0 I/O: Intake & Output 09/15/22 09/16/22 09/16/22 23:59 07:59 15:59 Intake Total 0 1999 Balance 0 1999 Laboratory Tests 09/16/22 05:53 09/16/22 05:53 09/16/22 05:53 WBC 5.5 RBC 3.29 L Hgb 10.1 L Hct 32.1 L MCV 97.6 MCH 30.7 MCHC 31.5 L RDW 17.5 H Plt Count 229 MPV 9.3 Sodium 137 Potassium 3.6 Chloride 105 Carbon Dioxide 27 Anion Gap 5 L BUN 3 L D Creatinine 0.90 Estim Creat Clear Calc 40 Estimated GFR 60 Glucose 90 Calcium 8.2 L Microbiology 09/13/22 10:07 Urine Clean Catch Urine Culture - Final Escherichia Coli (ESBL) Post-procedural complaints: none Patient Feedback: Patient satisfied with anesthetic care.
--- NOTE | 2022-09-16 13:21 | WPDANESEPPF ---
Anes - Initial Pre Proc Eval Procedure: Operation Date: 09/15/22 12:00 Proposed Procedures p Colonoscopy - Alexy Vicenet MD Operation Date: 09/16/22 13:30 Proposed Procedures p Colonoscopy - Alexy Vicente MD Operation Date: 09/16/22 15:00 Proposed Procedures p Colonoscopy - Festus Peacock MD Date/Time: 09/16/22 13:21 Surgeon: Kaden Cabrera MD Pre Op Diagnosis: GI Bleed Patient Data Age: 81 Gender: F Height: 1.6 m Weight: 75.5 kg Last Vital Signs Temp 36.3 C L 09/16/22 11:15 Pulse 78 09/16/22 11:15 Resp 16 09/16/22 11:15 BP 131/57 L 09/16/22 11:15 Pulse Ox 94 09/16/22 11:15 O2 Del Method Room Air 09/16/22 08:35 Allergies Allergy/AdvReac Type Severity Reaction Status Date / Time sertraline Allergy Severe Unknown Verified 09/13/22 09:43 hydromorphone Allergy Intermediate Unknown Verified 09/13/22 09:43 Home Medications Medication Instructions Recorded Confirmed Type aspirin 81 mg tablet,delayed 81 mg PO DAILY 03/20/19 09/13/22 History release atorvastatin 10 mg tablet 10 mg PO DAILY 03/20/19 09/13/22 History cholecalciferol (vitamin D3) 1,250 50,000 unit PO WEEKLY 03/20/19 09/13/22 History mcg (50,000 unit) tablet cyanocobalamin (vitamin B-12) 1,000 mcg PO DAILY 03/20/19 09/13/22 History 1,000 mcg capsule donepezil 10 mg tablet 10 mg PO HS 03/20/19 09/13/22 History polyethylene glycol 3350 17 17 g PO DAILY PRN Constipation 03/20/19 09/13/22 History gram/dose oral powder (Miralax) aripiprazole 2 mg tablet (Abilify) 2 mg PO DAILY 07/16/21 09/13/22 History docusate sodium 100 mg capsule 100 mg PO DAILY 07/16/21 09/13/22 History (Colace) duloxetine 60 mg capsule,delayed 60 mg PO DAILY 07/16/21 09/13/22 History release famotidine 20 mg disintegrating 20 mg PO BID 07/16/21 09/13/22 History tablet ferrous sulfate 325 mg (65 mg 325 mg PO DAILY 07/16/21 09/13/22 History iron) tablet,delayed release lamotrigine 100 mg tablet 100 mg PO DAILY 07/16/21 09/13/22 History levetiracetam 250 mg tablet 250 mg PO BID 07/16/21 09/13/22 History (Keppra) loratadine 10 mg tablet (Allergy 10 mg PO DAILY 07/16/21 09/13/22 History Relief (loratadine)) melatonin 3 mg tablet 3 mg PO HS 07/16/21 09/13/22 History pantoprazole 40 mg tablet,delayed 20 mg PO DAILY 07/16/21 09/13/22 History release rivaroxaban 20 mg tablet (Xarelto) 20 mg PO DAILY 07/16/21 09/13/22 History cranberry fruit 450 mg tablet 450 mg PO DAILY 04/05/22 09/13/22 History (cranberry) fluticasone propionate 50 2 spray intranasal DAILY 04/05/22 09/13/22 History mcg/actuation nasal spray,suspension (Allergy Relief (fluticasone)) mirabegron 25 mg tablet,extended 25 mg PO DAILY 04/05/22 09/13/22 History release 24 hr (Myrbetriq) Marisol-Tussin 5 ml PO Q6H PRN Congestion 09/13/22 09/13/22 History acetaminophen 325 mg tablet 325 mg PO Q4H PRN Pain (Scale 09/13/22 09/13/22 History Score 1-3) furosemide 20 mg tablet 20 mg PO DAILY 09/13/22 09/13/22 History lorazepam 0.5 mg tablet 0.5 mg PO DAILY 09/13/22 09/13/22 History magnesium oxide 1 tablet PO DAILY 09/13/22 09/13/22 History potassium chloride 20 mEq 20 meq PO BID 09/13/22 09/13/22 History tablet,extended release(part/cryst) (Klor-Con M) Laboratory Tests 09/16/22 05:53 WBC 5.5 K/mm3 (4.5-10.0) RBC 3.29 L M/mm3 (4.2-5.4) Hgb 10.1 L g/dL (12.0-15.0) Hct 32.1 L % (37.0-47.0) MCV 97.6 fl (80-100) MCH 30.7 pg (26-34) MCHC 31.5 L g/dl (32-36) RDW 17.5 H % (11.5-14.5) Plt Count 229 k/mm3 (150-375) MPV 9.3 fl (7.4-10.4) Sodium 137 mmol/L (137-145) Potassium 3.6 mmol/L (3.4-5.0) Chloride 105 mmol/L (98-107) Carbon Dioxide 27 mmol/L (22-30) Anion Gap 5 L mmol/L (8-16) BUN 3 L D mg/dL (7-17) Creatinine 0.90 mg/dL (0.7-1.0) Estim Creat Clear Calc 40 ml/min Estimated GFR 60 (59 - ) Glucose 90 mg/dL
[2022-09-16] MEDS: LACTATED RINGERS 1,000 ML 150 ML IV CONT (13:58)
--- NOTE | 2022-09-16 14:00 | PM.IMPN ---
Progress Note: A&P Assessment and Plan (1) Chronic anticoagulation: Code(s): Z79.01 - meterman (current) use of anticoagulants Status: Acute (2) Psychiatric illness: Code(s): F99 - Mental disorder, not otherwise specified Status: Acute (3) Anemia due 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) Status: Acute Plan # acute blood loss anemia -GI consultation: repeat colonoscopy today after bowel prep yesterday -hemoglobin stable at 10.1 (up from 5.6, baseline 9) -IV Protonix, Pepcid # urinary tract infection ESBL Ecoli -ESBL ecoli 10-49k colonies: Augmentin, will verify with pharmacy which would be the best agent # chronic conditions -paroxysmal atrial fibrillation: Holding Eliquis with GI bleed concern, no rate control agents -Alzheimer's dementia: donepezil, duloxetine -schizoaffective disorder: Abilify -GERD: pepcid -hyperlipidemia: Lipitor -seizure disorder: Continue Keppra 250 mg b.i.d., Lamictal? Diet: NPO for colonoscopy DVT prophylaxis: SCDs Code status: DNR Disposition: Pending colonoscopy today, then snf afterwards in 1-2 days Subjective Date/time seen: 09/16/22 14:00 Interval history: Patient seen examined. She is doing well with no new complaints. Patient had a palpable for repeat colonoscopy today afternoon at 1:00 p.m.. Patient denies fever, chills, nausea vomiting or diarrhea. Hemoglobin stable 10.1. Will verify with pharmacy which antibiotic would be best for easy his ESBL E coli UTI. Review of Systems Review of Systems: 10 point ROS complete, negative other than what is specified in HPI. Exam Narrative: - GENERAL: Pleasant elderly woman no acute distress. - EYES: EOMI. Anicteric. - HENT: Moist mucous membranes. - LUNGS: Clear to auscultation bilaterally, no wheezing, rhonchi, or rales. - CARDIOVASCULAR: Regular rate and rhythm. No murmur. No JVD. - ABDOMEN: Soft, non-tender and non-distended. No palpable masses. - EXTREMITIES: Peripheral pulses 2+. Non-tender. - NEUROLOGIC: No focal neurological deficits. CN II-XII grossly intact. - PSYCHIATRIC: Awake, Alert and oriented x 3. Appropriate mood and affect. - SKIN: No rashes or lesions. Warm. - LYMPH: No cervical lymphadenopathy. Objective Data Vital Signs Vital Signs: Vital Signs - 24 hr 09/15/22 20:00 09/15/22 20:00 09/16/22 03:45 Temperature 36.1 C L Pulse Rate 67 Respiratory Rate 20 Blood Pressure 154/79 H 133/58 L Pulse Oximetry 100 Oxygen Delivery Room Air 09/16/22 03:50 09/16/22 03:55 09/16/22 04:00 Temperature 36.3 C L Pulse Rate 75 Respiratory Rate 16 Blood Pressure 140/74 144/59 H 133/58 L Pulse Oximetry 100 Oxygen Delivery 09/16/22 08:35 09/16/22 11:15 09/16/22 13:54 Temperature 36.3 C L Pulse Rate 78 71 Respiratory Rate 16 18 Blood Pressure 131/57 L 143/63 H Pulse Oximetry 94 18 L Oxygen Delivery Room Air Room Air Intake/Output Intake/Output: Intake & Output 09/13/22 09/14/22 09/15/22 09/16/22 23:59 23:59 23:59 23:59 Intake Total 1761 605 224 7364 Output Total 975 100 Balance 1761 -293 419 4423 Meds/Results Medications: Active Medications Generic Name Dose Route Start Last Admin Trade Name Freq PRN Reason Stop Dose Admin Acetaminophen 325 mg 09/14/22 07:47 Acetaminophen 325 Mg Tablet PO Q4H PRN Pain (Scale Score 1-3) Amoxicillin/Clavulanate Potassium 1 tablet 09/15/22 10:40 09/16/22 08:38 Amoxicillin/Clavulanate K 875-125 Mg Tab PO 09/19/22 21:01 1 tablet Q12HR ALEXIS Administration Aripiprazole 2 mg 09/14/22 09:00 09/16/22 08:38 Aripiprazole 2 Mg Tablet PO 2 mg DAILY ALEXIS Administration Atorvastatin Calcium 10 mg 09/14/22 18:00 09/15/22 17:08 Atorvastatin 10 Mg Tablet PO 10 mg DAILY@1800 ALEXIS Administration Cyanocobalamin 1,000 mcg 09/14/22 09:00 09/16/22 08:38 Cyanocobalamin 1,000 Mcg Table
[2022-09-16] MEDS: ATORVASTATIN 10 MG TABLET PO (16:26)
[2022-09-16] MEDS: DONEPEZIL HCL 10 MG TABLET PO (21:37)
[2022-09-16] MEDS: LORazepam (*CRX) 0.5 MG TABLET PO (21:37)
[2022-09-16] MEDS: MELATONIN 3 MG TABLET PO (21:37)
[2022-09-17] VITALS: BP 95/53; PULSE 66; RESP 18; TEMP 35.6; O2SAT 95
[2022-09-17 04:00] VITALS: BP 112/42; PULSE 68; RESP 18; TEMP 36.2; O2SAT 97
[2022-09-17 07:28] LABS: Basophils Percent Auto 0.4 % (0.2-1.2); Eosinophils Absolute Auto 0.2 K/mm3 (0-0.3); Eosinophils Percent Auto 4.1 % (0-4.4); Hematocrit 29.3 % (37.0-47.0); Hemoglobin 9.3 g/dL (12.0-15.0); Immature Granulocyte Absolute 0.01 K/mm3 (0.00-0.031); Immature Granulocyte Percent A 0.2 % (0-0.5); Lymphocytes Absolute Auto 1.45 K/mm3 (0.9-3.2); Lymphocytes Percent Auto 31.4 % (18.3-44.2); Mean Corpuscular HGB Conc 31.7 g/dl (32-36); Mean Corpuscular Hemoglobin 31.6 pg (26-34); Mean Corpuscular Volume 99.7 fl (80-100); Mean Platelet Volume 9.7 fl (7.4-10.4); Monocytes Absolute Auto 0.3 K/mm3 (0.1-0.6); Monocytes Percent Auto 7.1 % (2.6-8.5); Neutrophils Absolute Auto 2.6 K/mm3 (1.3-6.7); Neutrophils Percent Auto 56.8 % (45.5-73.1); Platelet Count Result 202 k/mm3 (150-375); Red Blood Count 2.94 M/mm3 (4.2-5.4); Red Cell Distribution Width 16.7 % (11.5-14.5); White Blood Count 4.6 K/mm3 (4.5-10.0)
[2022-09-17 07:33] LABS: Anion Gap 3 mmol/L (8-16); Blood Urea Nitrogen 6 mg/dL (7-17); Calcium 8.1 mg/dL (8.4-10.2); Carbon Dioxide 28 mmol/L (22-30); Chloride 106 mmol/L (98-107); Estimated CRCL calculation 37 ml/min; Estimated Glomerular Filt Rate 53; Glucose 86 mg/dL (65-110); Potassium 3.6 mmol/L (3.4-5.0); Sodium 137 mmol/L (137-145)
[2022-09-17 08:00] VITALS: BP 121/53; PULSE 66; RESP 14; TEMP 36.2; O2SAT 97
[2022-09-17] MEDS: PANTOPRAZOLE SODIUM IV 40 MG VIAL IV PUSH (08:53)
[2022-09-17] MEDS: FAMOTIDINE 20 MG TABLET PO (08:53)
[2022-09-17] MEDS: CYANOCOBALAMIN 1,000 MCG TABLET 1000 MCG PO (08:53)
[2022-09-17] MEDS: levETIRAcetam 250 MG TABLET PO (08:53)
[2022-09-17] MEDS: MAGNESIUM OXIDE 400 MG TABLET PO (08:53)
[2022-09-17] MEDS: lamoTRIgine 100 MG TABLET PO (08:53)
[2022-09-17] MEDS: ARIPiprazole 2 MG TABLET PO (08:53)
[2022-09-17] MEDS: MIRABEGRON 25 MG ER TABLET PO (08:53)
[2022-09-17] MEDS: DULoxetine HCL 60 MG CAPSULE.DR PO (08:53)
--- NOTE | 2022-09-17 09:53 | PM.DS ---
DS: Admitting Diagnosis Discharge Date 09/17/22 Admitting Diagnosis Acute GI bleed, blood-loss anemia DS: Discharge Diagnosis Discharge Diagnosis (1) Iron deficiency anemia: Qualifiers: Iron deficiency anemia type: inadequate dietary iron intake Qualified Code(s): D50.8 - Other iron deficiency anemias Code(s): D50.9 - Iron deficiency anemia, unspecified Status: Acute Plan # iron deficiency anemia -at 1st patient was thought to have acute blood loss anemia with positive Hemoccult all and hemoglobin at 5.6 -GI consult: As patient had an EGD within the last year that was negative recommendation was for colonoscopy. Patient had a colonoscopy which was a poor prep on 09/15 and then a repeat colonoscopy 09/16 with finding of few medium-sized uncomplicated internal hemorrhoids without bleeding and a few small diverticula in sigmoid colon without bleeding. GI recommends looking for a non GI etiology for anemia as bleeding has been ruled out. Will need outpatient GI follow-up for endoscopy -hemoglobin stable at 9.3(up from 5.6, baseline 9) -recheck CBC in a week # colonization of ESBL E coli -ESBL ecoli 10-49k colonies: Patient has short course of Augmentin, no antibiotics needed on discharge # chronic conditions -paroxysmal atrial fibrillation:? Resume Xarelto -medium internal hemorrhoids: Continue laxatives Colace MiraLax -Alzheimer's dementia:? donepezil, duloxetine -schizoaffective disorder: Abilify, lorazepam -GERD: pepcid, Protonix -hyperlipidemia: Lipitor -seizure disorder: Continue Keppra 250 mg b.i.d., Lamictal -incontinence: Continue myrbetriq -insomnia: Melatonin -allergies: Loratadine Diet:? Regular diet DVT prophylaxis:??SCDs Code status:??DNR Disposition:? Back to [facility] Custodial DS: Summary Hospital Course Reason for hospitalization: Symptomatic anemia Hospital Course: Patient is a 81-year-old female with past medical history of dementia, seizure disorder, paroxysmal atrial fibrillation on Xarelto anticoagulation, congestive heart failure on Lasix, hyperlipidemia, GERD, iron deficiency anemia presents to ED complaints of weakness. Patient found to have hemoglobin 5.6 and a positive Hemoccult. GI was consulted for further management. Patient received blood transfusions and at time of discharge hemoglobin stabilized at 9.3, baseline hemoglobin is 9. GI reviewed patient's previous hospitalization with anemia and an unremarkable EGD with only finding of hiatal hernia. At that time colonoscopy not done and therefore colonoscopy was recommended during this hospitalization. Colonoscopy on 09/15/2022 was unclear due to poor prep, repeat colonoscopy done on 09/16/2022. Patient found to have uncompensated medium size internal hemorrhoids and small sigmoid diverticula, no active bleeding seen. Recommendation from GI is to evaluate for non GI cause for anemia. Patient's anemia is likely secondary to iron deficiency (known history of JIMMY) and she will be sent home with iron supplements. She will follow-up with PCP with a CBC in 1 week. She will follow-up with GI for post endoscopy follow-up. At time of discharge patient's labs stable, vitals stable, patient is stable for discharge back to group home facility. Patient understands and agrees with plan. Status at Discharge Cognitive/behavioral status at discharge: Baseline Time Spent with Patient Time attestation: Total time spent providing and/or coordinating discharge services: 40 Exam Narrative: - GENERAL:? Pleasant elderly woman no acute distress. - EYES: EOMI. Anicteric. - HENT: Moist mucous membranes. - LUNGS: Clear to auscultation bilaterally, no wheezing, rhonchi, or rales. - CARDIOVASCULAR: Regular rate and rhythm. Murmur present - ABDOMEN: Soft, non-tender and non-distended. No palpable masses. - EXTREMITIES: Peripheral pulses 2+. Non-tender. - NEUROLOGIC: No focal neurological deficits. CN II-XII grossly intact.
[2022-09-17 10:57] LABS: EDCOVIDSCREEN Negative (Negative)
== END 2022-09-17 12:59 ==
LOC: ANHED 10:27 → ANH3MEDSUR 14:08
PROVIDERS: Internal Medicine; Internal Medicine Gastroenterology; Physician Assistant; Admitting Provider Chiropractor; Emergency Provider Preventive Medicine Aerospace Medicine; PCP Internal Medicine; Visit Provider Student in an Organized Health Care Education/Training Program
PROC: 0DJD8ZZ Inspection of Lower Intestinal Tract, Via Natural or Artificial Opening Endoscopic (ICD-10-PCS; CPT 45378; principal; 2022-09-15 12:00)
DX: K64.8 Other hemorrhoids (principal); K57.30 Diverticulosis of large intestine without perforation or abscess without bleeding; D64.9 Anemia, unspecified; Z71.1 Person with feared health complaint in whom no diagnosis is made; I48.0 Paroxysmal atrial fibrillation; R55 Syncope and collapse; D35.02 Benign neoplasm of left adrenal gland; R79.89 Other specified abnormal findings of blood chemistry; I95.9 Hypotension, unspecified; K44.9 Diaphragmatic hernia without obstruction or gangrene; R10.9 Unspecified abdominal pain; G40.909 Epilepsy, unspecified, not intractable, without status epilepticus; F25.9 Schizoaffective disorder, unspecified; F03.90 Unspecified dementia, unspecified severity, without behavioral disturbance, psychotic disturbance, mood disturbance, and anxiety; F41.9 Anxiety disorder, unspecified; F32.A Depression, unspecified; N39.0 Urinary tract infection, site not specified; B96.20 Unspecified Escherichia coli [E. coli] as the cause of diseases classified elsewhere; Z20.822 Contact with and (suspected) exposure to COVID-19; S32.010A Wedge compression fracture of first lumbar vertebra, initial encounter for closed fracture; S32.020A Wedge compression fracture of second lumbar vertebra, initial encounter for closed fracture; K21.9 Gastro-esophageal reflux disease without esophagitis; E78.5 Hyperlipidemia, unspecified; M81.0 Age-related osteoporosis without current pathological fracture; Z66 Do not resuscitate; E55.9 Vitamin D deficiency, unspecified; R94.31 Abnormal electrocardiogram [ECG] [EKG]; Z87.891 Personal history of nicotine dependence; Z79.01 Long term (current) use of anticoagulants; Z79.82 Long term (current) use of aspirin; Z79.51 Long term (current) use of inhaled steroids; Z79.1 Long term (current) use of non-steroidal anti-inflammatories (NSAID); Z79.899 Other long term (current) drug therapy; Z81.8 Family history of other mental and behavioral disorders
CPT/HCPCS: 45378 ×2; 36415; 36430; 74177; 80048; 80053; 80069; 81001; 82607; 82728; 82746; 83540; 83550; 83605; 83735; 84443; 84484; 85014; 85018; 85025; 85027; 85610; 86850; 86900; 86901; 86923; 87077; 87086; 87186; 87426; 93005; 96365; 96375; 99285; A9270; C9113; C9803; G0378; J0131; J0696; J2405; J2704; J7030; J7120; P9016; Q9967

== ENCOUNTER 2023-06-06 12:15 | Inpatient (IN) | payer MEDICARE, SELFPAY ==
[2023-06-06] VITALS (33 sets, daily range): BP systolic 97–152; BP diastolic 48–133; PULSE 100–179; RESP 20–46; TEMP 36.6–37.9; O2SAT 91–100; BMI 28.0
--- NOTE | ~2023-06-06 | XR_ITS ---
EXAMINATION: XR chest 1V portable INDICATION: Influenza, fluid overload TECHNIQUE: Portable AP chest at 0554 hours COMPARISON: 06/09/2023 FINDINGS: Airspace opacities of the left mid and lower lung zones are unchanged. Small pleural effusi ons, left greater than right, are stable. There is no pneumothorax. The cardiomediastinal silhouette is normal. Vertebroplasty changes noted at L1. A small amount of enteric contrast from yesterday's mo dified barium swallow is noted in the colon. IMPRESSION: 1. Stable airspace opacities of the left mid and lower lung zones, consistent with atelectasis versus pneumonia. 2. Small pleural effusions, left greater than right. Reviewed, dictated and finalized at location F. ET PULLER IMPRESSION: 1. Stable airspace opacities of the left mid and lower lung zones, consistent w ith atelectasis versus pneumonia. 2. Small pleural effusions, left greater than right.
--- NOTE | ~2023-06-06 | XR_ITS ---
EXAMINATION: XR barium swallow modified DATE: 06/09/2023 13:58 INDICATION: Dysphagia. TECHNIQUE: The patient was given barium-containing material of multiple consistencies to swallow by t he speech pathologist while I performed fluoroscopy. Fluoroscopy exposure time was 2.6 minutes. The n umber of fluoroscopy images saved to the PACS was 1. Dose-area product was 1.582 Gy-cm^2. FINDINGS: There is reduced lingual movement. There is laryngeal penetration with thin liquids via straw. IMPRESSION: 1. Laryngeal penetration with thin liquids via straw. 2. Please refer to the speech therapy report for recommendations. Reviewed, dictated and finalized at location A. RAL ASSISTANT
--- NOTE | ~2023-06-06 | CT_ITS ---
CT Scan of the Chest without Contrast: Clinical Indication: Pneumonia, CHF Technique: Contiguous sections were acquired throughout the chest without intravenous contrast. Dose reduction technique was used on this scan by utilizing automated exposure control and iterative recon struction technique. The dose-length product (DLP) was 412.81 mGy-cm. COMPARISON: 03/18/2020 Findings: There is no evidence of any significant mediastinal, hilar or axillary lymphadenopathy. The mediastin al soft tissues appear normal. No pericardial effusion. Small to moderate left pleural effusion present. There is diffuse consolidation of the left lower lob e with air bronchograms. There is partial consolidation of the lingula. There is probable minimal right pleural effusion with patchy consolidation of the right lower lobe. Images through the upper abdomen reveal stable low-density left adrenal nodule, most likely adenoma. Compression fracture of L1 present with vertebroplasty cement. Additional compression fracture of L2 present. There are probable additional mild compression deformities of T9 and T12. Impression: Lobar consolidation left lower lobe with partial consolidation the lingula and right lower lobe. Abigail elate for atelectasis/pulmonary edema versus pneumonia. [id number] left pleural effusion and minimal right pleural effusion. Multiple spinal compression fractures, as above. Reviewed, dictated and finalized at location . IT REFERENCE CLERK Impression: Lobar consolidation left lower lobe with partial consolidation the lingula and right lower lobe. Correlate for atelectasis/pulmonary edema versus pneumonia. [id number] left pleural effusion and minimal right pleural effusion. Multiple spinal compression fractures, as above.
--- NOTE | ~2023-06-06 | XR_ITS ---
EXAM: XR hip LT 2V w AP pelvis DATE: 06/06/2023 18:03 HISTORY: fall . COMPARISON: 04/09/2022. FINDINGS: Decreased mineralization. Old right obturator ring fractures. Uncomplicated left hip arthr oplasty hardware. No acute fracture or dislocation. No lytic or blastic lesion. Lumbar degenerative d isc disease. Mild degenerative changes in the bilateral SI joints, pubic symphysis, and left hip. No erosion or periosteal change. Soft tissues within normal limits. IMPRESSION: No acute osseous finding in the pelvis or left hip. No radiographic evidence of hardware- related complication. Reviewed, dictated and finalized at location K. L OPERATOR IMPRESSION: No acute osseous finding in the pelvis or left hip. No radiographic evidence of hardware-related complication.
--- NOTE | ~2023-06-06 | XR_ITS ---
XR chest 1V DATE: 06/06/2023 13:21 INDICATION: Weakness. Recent fall. TECHNIQUE: AP chest COMPARISON: 04/04/2022 AP chest 03/18/2020 CTA chest FINDINGS: Heart size is within normal range. There is aortic arch calcification. Left retrocardiac density is likely due to moderate hiatal hernia demonstrated on 03/14/2020 CTA chest examination There is patchy infiltrate and/or atelectasis in the left perihilar area and left lower lung and to a lesser extent right lower lung. No pleural effusion or pulmonary vascular congestion or pneumothorax. Diffuse osteopenia. Osteophytic change at the glenohumeral joints. Vertebroplasty is noted at L1. IMPRESSION: Bilateral pulmonary infiltrates and/atelectasis, greater on the left Moderate hiatal hernia Aortic atherosclerosis Reviewed, dictated and finalized at location L. AL MARKETING COORDINATOR IMPRESSION: Bilateral pulmonary infiltrates and/atelectasis, greater on the lef t Moderate hiatal hernia Aortic atherosclerosis
--- NOTE | ~2023-06-06 | CT_ITS ---
EXAMINATION: CT brain wo con DATE: 06/06/2023 13:20 INDICATION: Head injury. TECHNIQUE: Computed tomography (CT) of the head was performed without intravenous contrast. The mA wa s adjusted according to patient size. Iterative reconstruction technique was employed. The dose-lengt h product was 1210.67 mGy-cm. COMPARISON: Head CT 04/04/2022 FINDINGS: There are old infarcts in the cerebellum bilaterally. There is old infarct in the left fron erendira lobe. There is an old infarct in left insula. There is an old infarct in left parietal lobe. Ther e are scattered areas of low attenuation in the cerebral white matter and bilateral basal ganglia. Th ere is no intracranial hemorrhage, acute infarction, or abnormal intracranial mass lesion. The ventri cles are normal in size. The orbits are normal. There is mild mucosal thickening in the paranasal sin uses. There is a small left mastoid effusion. The orbits are normal. IMPRESSION: 1. Old infarcts involving the cerebellum, left frontal and parietal lobes, and left insula. 2. Stable moderate nonspecific cerebral white matter disease and disease of the deep krause nuclei, whi ch likely represents chronic small vessel ischemic disease. Reviewed, dictated and finalized at location A. DULE SUPERVISOR IMPRESSION: 1. Old infarcts involving the cerebellum, left frontal and parietal lobes, and left insula. 2. Stable moderate nonspecific cerebral white matter disease and disease of the deep krause nuclei, which likely represents chronic small vessel ischemic diseas e.
--- NOTE | ~2023-06-06 | CT_ITS ---
EXAMINATION: CT cervical spine wo con DATE: 06/06/2023 13:20 INDICATION: Fall. Neck injury. TECHNIQUE: Computed tomography (CT) of the cervical spine was performed without intravenous contrast. Automated exposure control and iterative reconstruction technique were employed. The dose-length pro duct was 365.43 mGy-cm. COMPARISON: None FINDINGS: There is 6 degrees dextrocurvature of cervical spine. Vertebral body heights are normal. Th ere is moderately decreased disc height at C3-C4 and severely decreased disc height from C4-C5 throug h C6-C7. The following disc levels are specifically discussed: C2-C3: There is mild bilateral uncovertebral joint osteoarthritis. There is mild right and severe lef t facet joint osteoarthritis. There is no neural foraminal stenosis. There is no central canal stenos is. C3-C4: There is moderate right and severe left uncovertebral joint osteoarthritis. There is mild righ t and severe left facet joint osteoarthritis. There is mild left neural foraminal stenosis. There is no central canal stenosis. C4-C5: There is severe bilateral uncovertebral joint osteoarthritis. There is moderate right and nazanin re left facet joint osteoarthritis. There is mild bilateral neural foraminal stenosis. There is mild central canal stenosis. C5-C6: There is severe bilateral uncovertebral joint osteoarthritis. There is mild bilateral facet ralph int osteoarthritis. There is mild bilateral neural foraminal stenosis. There is mild central canal st enosis. C6-C7: There is severe bilateral uncovertebral joint osteoarthritis. There is moderate right and nazanin re left facet joint osteoarthritis. There is mild bilateral neural foraminal stenosis. There is mild central canal stenosis. C7-T1: There is no uncovertebral joint osteoarthritis. There is mild right and moderate left facet ralph int osteoarthritis. There is no neural foraminal stenosis. There is no central canal stenosis. IMPRESSION: 1. No fracture. 2. Severe cervical spondylosis. Reviewed, dictated and finalized at location A. RVISOR TILE AND MOTTLE
--- NOTE | ~2023-06-06 | US_ITS ---
EXAMINATION: US abdomen limited DATE: 06/11/2023 12:40 INDICATION: elevated LFT TECHNIQUE: Multiple grayscale and Doppler ultrasound images of limited portions of the abdomen were o btained. COMPARISON: CT chest 06/09/2023; CT abdomen pelvis 09/13/2022. FINDINGS: The visualized portions of the pancreas are normal. The liver is suboptimally visualized. N o definite liver mass. Normal to slightly decreased liver echogenicity. Echogenic portal tracts. No s urface nodularity. Normal hepatopetal flow in the main portal vein. Dependent luminal gallbladder nilam ris, no wall thickening, stones, or pericholecystic fluid. The common bile duct measures 4 mm. There was no sonographic Lozoya sign. Right kidney measures 6.3 x 3.5 x 4.0 cm, no hydronephrosis IMPRESSION: Starry phu appearance of the liver which can be seen with acute hepatitis, as well as with fasting, n eoplastic infiltration, and right heart failure. Gallbladder sludge. Reviewed, dictated and finalized at location K. ERN GRADER IMPRESSION: Starry phu appearance of the liver which can be seen with acute hepatitis, as w ell as with fasting, neoplastic infiltration, and right heart failure. Gallbladder sludge.
--- NOTE | ~2023-06-06 | XR_ITS ---
Portable chest x-ray Comparison: 06/06/2023 Clinical History: Hypoxia Findings: Small left pleural effusion present. There is left basilar and left perihilar groundglass pulmonary disease and probable left lower lobe atelectasis. There is minimal haziness right lung base . Cardiomediastinal silhouette is stable. Bones and soft tissues are unremarkable. Impression: Small left pleural effusion with left lower lobe atelectasis. Hazy bilateral airspace disease, left worse than right, suggestive of mild asymmetric pulmonary edema . Correlate clinically for infection. Reviewed, dictated and finalized at [facility]. ATOR CAVITY PUMP Impression: Small left pleural effusion with left lower lobe atelectasis. Hazy bilateral airspace disease, left worse than right, suggestive of mild asym metric pulmonary edema. Correlate clinically for infection.
--- NOTE | ~2023-06-06 | XR_ITS ---
Right Hand Technique: PA and lateral views were obtained. Clinical History: Pain Findings: No acute fracture identified. Lateral view demonstrates marked dorsal tilt of the lunate wi th dorsal subluxation of the capitate with respect to the lunate.. Prior ORIF of the distal radius. P rior resection of the distal ulna. Osseous alignment is anatomic. Joint spaces are preserved. Soft ti ssues are unremarkable. Impression: No acute fracture in the hand itself. Postoperative changes at the distal radius and ulna, as detailed above. Prominent dorsal tilt of the lunate with dorsal subluxation of the capitate with respect to the lunat e. This could reflect chronic change related to prior surgery and/or injury at the wrist, versus poss ibility of acute osseous malalignment. Correlate with relevant history and symptomatology. Reviewed, dictated and finalized at [facility]. 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 Postoperative changes at the distal radius and ulna, as detailed above. Prominent dorsal tilt of the lunate with dorsal subluxation of the capitate wit h respect to the lunate. This could reflect chronic change related to prior melissa elidia and/or injury at the wrist, versus possibility of acute osseous malalignme nt. Correlate with relevant history and symptomatology.
--- NOTE | 2023-06-06 12:48 | ED.FALL ---
HPI - Fall General Chief Complaint: Fall Stated Complaint: unwitnessed fall Time Seen by Provider: 06/06/23 12:48 Source: patient and EMS Mode of arrival: EMS History of Present Illness HPI Narrative: Patient came to the ED for from longterm by ambulance because of unwitnessed fall. Patient was found on the floor next to her bed. Patient on aspirin. History of dementia, TIA without any neuro deficit. On arrival to the ED patient is alert to herself, her son and at the bedside, complaining of left thigh pain. Related Data Home Medications Medication Instructions Recorded Confirmed aspirin 81 mg tablet,delayed 81 mg PO DAILY 03/20/19 06/06/23 release atorvastatin 10 mg tablet 10 mg PO DAILY 03/20/19 06/06/23 cholecalciferol (vitamin D3) 1,250 50,000 unit PO WEEKLY 03/20/19 06/06/23 mcg (50,000 unit) tablet cyanocobalamin (vitamin B-12) 1,000 mcg PO DAILY 03/20/19 06/06/23 1,000 mcg capsule donepezil 10 mg tablet 10 mg PO HS 03/20/19 06/06/23 polyethylene glycol 3350 17 17 g PO DAILY PRN Constipation 03/20/19 06/06/23 gram/dose oral powder (Miralax) duloxetine 60 mg capsule,delayed 60 mg PO DAILY 07/16/21 06/06/23 release famotidine 20 mg disintegrating 20 mg PO BID 07/16/21 06/06/23 tablet lamotrigine 100 mg tablet 100 mg PO DAILY 07/16/21 06/06/23 levetiracetam 250 mg tablet 250 mg PO BID 07/16/21 06/06/23 (Keppra) loratadine 10 mg tablet (Allergy 10 mg PO DAILY 07/16/21 06/06/23 Relief (loratadine)) melatonin 3 mg tablet 3 mg PO HS 07/16/21 06/06/23 pantoprazole 40 mg tablet,delayed 20 mg PO DAILY 07/16/21 06/06/23 release rivaroxaban 20 mg tablet (Xarelto) 20 mg PO DAILY 07/16/21 06/06/23 cranberry fruit 450 mg tablet 450 mg PO DAILY 04/05/22 06/06/23 (cranberry) fluticasone propionate 50 2 spray intranasal DAILY 04/05/22 06/06/23 mcg/actuation nasal spray,suspension (Allergy Relief (fluticasone)) mirabegron 25 mg tablet,extended 25 mg PO DAILY 04/05/22 06/06/23 release 24 hr (Myrbetriq) Marisol-Tussin 5 ml PO Q6H PRN Congestion 09/13/22 06/06/23 acetaminophen 325 mg tablet 650 mg PO Q4H PRN Pain (Scale 09/13/22 06/06/23 Score 1-3) furosemide 20 mg tablet 20 mg PO DAILY 09/13/22 06/06/23 lorazepam 0.5 mg tablet 0.5 mg PO DAILY 09/13/22 06/06/23 magnesium oxide 1 tablet PO DAILY 09/13/22 06/06/23 potassium chloride 20 mEq 20 meq PO BID 09/13/22 06/06/23 tablet,extended release(part/cryst) (Klor-Con M) sennosides 8.6 mg-docusate sodium 1 tab-cap PO DAILY 06/06/23 06/06/23 50 mg tablet (Senna Plus) Allergies Allergy/AdvReac Type Severity Reaction Status Date / Time sertraline Allergy Severe Unknown Verified 06/06/23 12:35 hydromorphone Allergy Intermediate Unknown Verified 06/06/23 12:35 Review of Systems Review of Systems: ROS unobtainable: Yes unobtainable due to medical condition and unobtainable due to mental status PMFSH Past Medical History Medical History (Updated 06/06/23 @ 19:08 by Marti Zaman PA-C) Alzheimers disease Anxiety Chronic anticoagulation Congestive heart failure Dementia Follows with neurologist, Dr. Galindo. 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 Osteoporosis Paroxysmal atrial fibrillation Pneumonia due to COVID-19 virus Schizoaffective disorder Seizure disorder Thoracic compression fracture T10 Vitamin D deficiency Surgical History Surgical History History of arthroscopy of left shoulder History of bladder suspension procedure History of hysterectomy History of total left hip arthroplasty (2015) Family History Family History Sibling Dementia Cerebrovascular acci
--- NOTE | 2023-06-06 12:49 | ECG_ITS ---
Measurements Intervals [place] Rate: 161 P: [place]: 0 QRS: -14 QRSD: 124 T: 146 QT: 273 QTc: 447 Interpretive Statements ATRIAL FIBRILLATION WITH RAPID VENTRICULAR RESPONSE LEFT BUNDLE BRANCH BLOCK BASELINE ARTIFACT- I, II, III, AVR, AVL, AVF, V5-V6 ABNORMAL ECG COMPARED TO ECG 09/13/2022 09:55:48 ATRIAL FIBRILLATION NOW PRESENT Electronically Signed On 06-06-2023 13:42:38 WILDLIFE REHABILITATOR by Vladimir Sosa D.O.
[2023-06-06 13:33] LABS: Glucose Point of Care 116 mg/dl (65-105)
[2023-06-06 14:38] LABS: Appearance Urine Cloudy (Clear); Bacteria Urine 4+ /hpf; Bilirubin Urine Negative (Negative); Blood Urine 2+ (Negative); Color Urine Yellow (Yellow); Glucose Urine UA Negative (Negative); Ketones Urine Negative (Negative); Leukocyte Esterase Ur 2+ LEU/UL (Negative); Need Manual Microscopic Reviewed; Nitrate Urine Positive (Negative); Protein Urine 2+ mg/dL (Negative); Specific Grav Ur 1.016 (1.001-1.035); Squamous Epithelial Cell Urine Occasional /hpf (Few); Urobilinogen Urine 0.2 mg/dL (<2.0); WBC Urine >100 /hpf; pH Urine 5.5 (5.0-9.0)
[2023-06-06] MEDS: dilTIAZem HCl INJ 25 MG/5 ML VIAL 10 MG IV PUSH (14:38)
[2023-06-06 14:39] LABS: Add Urine Microscopic? YES
[2023-06-06] MEDS: dilTIAZem 100 MG/100 ML 100 MG/100 ML BAG IV CONT (14:43)
[2023-06-06 14:46] LABS: Hematocrit 32.2 % (37.0-47.0); Hemoglobin 10.7 g/dL (12.0-15.0); Mean Corpuscular HGB Conc 33.2 g/dl (32-36); Mean Corpuscular Volume 102.2 fl (80-100); Mean Platelet Volume 9.5 fl (7.4-10.4); Platelet Count Result 362 k/mm3 (150-375); Red Blood Count 3.15 M/mm3 (4.2-5.4); Red Cell Distribution Width 14.1 % (11.5-14.5)
[2023-06-06] MEDS: SODIUM CHLORIDE 0.9% IV 1,000 ML 999 ML IV CONT (14:49)
[2023-06-06 14:56] LABS: SARS-CoV-2 RNA PCR Negative (Negative)
[2023-06-06 14:58] LABS: INR 3.5; Prothrombin Time 37.7 Seconds (11.1-14.7)
[2023-06-06 14:59] LABS: Alanine Aminotransferase 15 U/L (6-35); Albumin Level 3.7 g/dL (3.5-5.1); Alkaline Phosphatase 127 U/L (38-126); Anion Gap 11 mmol/L (8-16); Aspartate Amino Transferase 36 U/L (14-36); Bilirubin,Total 1.2 mg/dL (0.2-1.3); Blood Urea Nitrogen 19 mg/dL (7-17); Calcium 8.9 mg/dL (8.4-10.2); Carbon Dioxide 20 mmol/L (22-30); Chloride 99 mmol/L (98-107); Creatine Kinase 91 U/L (30-135); Estimated CRCL calculation 28 ml/min; Estimated Glomerular Filt Rate 39; Glucose 115 mg/dL (65-110); Potassium 4.6 mmol/L (3.4-5.0); Sodium 130 mmol/L (137-145)
[2023-06-06 15:07] LABS: NT Pro B Type Natriuretic Pept 1350 pg/mL (19.9-100)
[2023-06-06 15:12] LABS: Troponin I 0.024 ng/mL (0.000-0.034)
[2023-06-06 15:15] LABS: Band Neutrophils Percent 11 % (0-6); Monocytes Percent Manual 14 % (3-9); Neutrophils Percent Manual 71 % (46-73); Total Cells Counted 100
[2023-06-06 15:16] LABS: Platelet Estimate Adequate (Adequate); Schistocytes None Seen (NORMAL)
[2023-06-06 15:29] LABS: Thyroid Stimulating Hormone 0.953 uIU/mL (0.465-4.680)
--- NOTE | 2023-06-06 16:57 | ECG_ITS ---
Measurements Intervals [place] Rate: 140 P: CT: 0 QRS: 9 QRSD: 125 T: 199 QT: 280 QTc: 428 Interpretive Statements ATRIAL FIBRILLATION WITH RAPID VENTRICULAR RESPONSE VENTRICULAR PREMATURE COMPLEX LEFT BUNDLE BRANCH BLOCK BASELINE ARTIFACT- AVF, V1-V6 ABNORMAL ECG COMPARED TO ECG 06/06/2023 13:33:55 NO SIGNIFICANT CHANGES Electronically Signed On 06-06-2023 20:11:38 BIOFUELS PRODUCTION MANAGER by Vladimir Sosa D.O.
[2023-06-06 19:00] LABS: Lactic Acid Reflex 1.3 mmol/L (0.7-2.0)
--- NOTE | 2023-06-06 19:07 | PM.IMHP ---
H&P: HPI History of Present Illness Date/Time: 06/06/23 22:30 Chief Complaint: Unwitnessed fall. Narrative: This is an 82-year-old female with dementia, seizures, paroxysmal atrial fibrillation on anticoagulation, congestive heart failure, hyperlipidemia, gastroesophageal reflux disease, and iron deficiency anemia who presented to the emergency department via EMS for evaluation after an unwitnessed fall. She is not a reliable historian at this time and a majority the following is obtained via a review of her electronic medical records as well as information provided by her son and . She was found on the floor next to her bed by staff at [facility]. She was unable to tell them how or why she fell. She did not think that she hit her head in the fall however has evidence of epistaxis and dry blood in her mouth. She complained only of pain in her left leg on arrival to the ED at the time my evaluation she told me that she hurt all over but could not give me any specifics. She has no other complaints at this time and states no to every question asked of her. Her temperature was 100.2? F on arrival to the ED. She was found to be in atrial fibrillation with rapid ventricular response. Labs were significant for a WBC count of 20 with a left shift, INR 3.5, sodium 130, BUN 19, creatinine 1.30, CRP 40.3. Urine was grossly infected though occasional squamous cells were noted on microscopy. She tested negative for SARS-CoV-2 by PCR. Brain and cervical spine CTs did not show any acute findings. Chest x-ray showed bilateral pulmonary infiltrates and/atelectasis. Left hip and pelvis x-ray showed no acute findings. She was given a dose of ceftriaxone and was started on a diltiazem drip and she is being admitted in this setting for further treatment and evaluation. Review of Systems Review of Systems: Unable to be obtained accurately given her confusion. [facility] Past Medical History Medical History Alzheimers disease Anxiety Chronic anticoagulation Congestive heart failure Dementia Follows with neurologist, Dr. Galindo. 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 Osteoporosis Paroxysmal atrial fibrillation Pneumonia due to COVID-19 virus Schizoaffective disorder Seizure disorder Thoracic compression fracture T10 Vitamin D deficiency Surgical History Surgical History History of arthroscopy of left shoulder History of bladder suspension procedure History of hysterectomy History of total left hip arthroplasty (2016) Family History Family History Sibling Dementia Cerebrovascular accident Sibling Acute myocardial infarction Mother Cirrhosis Father Emphysema of lung Social History Social History (Updated 06/06/23 @ 23:52 by Marti Zaman PA-C) Social History: Surrogate medical decision maker: Cameron Naranjo. Code status: Do not resuscitate. Smoking packs per day: 1 Smoking cigarettes per day: 20.0 Years smoked: 10 Smoking pack-years: 10.00 Smoking status: Never smoker Tobacco type: cigarettes Smoking end date: 05/08/79 Alcohol intake: never Substance use: never Substance use type: does not use Lack of Transportation: No Lack of Food: Never True Current Housing: I Have Housing Concerned About Future Housing: No Difficulty Paying Gas/Electric Bills: No Difficulty Paying for Meds: No Currently Unemployed: No Education: Decline to Answer Difficulty w/ Childcare or Family Care: No Additional living arrangements comments: . Resident at [facility].
--- NOTE | 2023-06-06 19:24 | PC.NURSE ---
Report given to Bonny FRITZ, all questions answered
[2023-06-06 19:47] LABS: CRP 40.3 mg/dL (<1.0)
[2023-06-06] MEDS: SODIUM CHLORIDE 0.9% IV 1,000 ML 125 ML IV CONT (20:37)
[2023-06-06 20:53] LABS: Troponin I 0.028 ng/mL (0.000-0.034)
[2023-06-06] MEDS: dilTIAZem 100 MG/100 ML 100 MG/100 ML BAG 10 MG IV CONT (22:41)
[2023-06-07] VITALS (22 sets, daily range): BP systolic 97–124; BP diastolic 52–76; PULSE 78–117; RESP 18–28; TEMP 36.3–38; O2SAT 92–99; BMI 28.9
[2023-06-07] MEDS: MEROPENEM 1 GM/NS 100 ML 1 GM/100 ML BAG IVPB ×2 (00:56→13:37)
[2023-06-07] MEDS: SODIUM CHLORIDE 0.9% IV 1,000 ML 100 ML IV CONT (00:56)
[2023-06-07] MEDS: ACETAMINOPHEN 325 MG TABLET 650 MG PO (00:56)
[2023-06-07 01:33] LABS: Influenza A QL RT-PCR Positive (Negative); Influenza B QL RT-PCR Negative (Negative); RSV RNA, RT-PCR Negative (Negative); SARS-CoV-2 RNA PCR Negative (Negative)
[2023-06-07 04:58] LABS: Basophils Absolute Auto 0.1 K/mm3 (0.0-0.1); Basophils Percent Auto 0.8 % (0.2-1.2); Eosinophils Absolute Auto 0.1 K/mm3 (0-0.3); Eosinophils Percent Auto 0.4 % (0-4.4); Hematocrit 27.8 % (37.0-47.0); Immature Granulocyte Absolute 0.55 K/mm3 (0.00-0.031); Immature Granulocyte Percent A 3.5 % (0-0.5); Lymphocytes Absolute Auto 0.92 K/mm3 (0.9-3.2); Lymphocytes Percent Auto 5.8 % (18.3-44.2); Mean Corpuscular HGB Conc 32.4 g/dl (32-36); Mean Corpuscular Hemoglobin 33.2 pg (26-34); Mean Corpuscular Volume 102.6 fl (80-100); Mean Platelet Volume 9.7 fl (7.4-10.4); Monocytes Absolute Auto 1.4 K/mm3 (0.1-0.6); Monocytes Percent Auto 8.8 % (2.6-8.5); Neutrophils Absolute Auto 12.7 K/mm3 (1.3-6.7); Neutrophils Percent Auto 80.7 % (45.5-73.1); Nucleated Red Blood Cells Perc 0.1 % (0.0-0.2); Platelet Count Result 315 k/mm3 (150-375); Red Blood Count 2.71 M/mm3 (4.2-5.4); Red Cell Distribution Width 14.3 % (11.5-14.5); White Blood Count 15.8 K/mm3 (4.5-10.0)
[2023-06-07 05:09] LABS: Anion Gap 10 mmol/L (8-16); Blood Urea Nitrogen 19 mg/dL (7-17); Calcium 7.9 mg/dL (8.4-10.2); Carbon Dioxide 18 mmol/L (22-30); Chloride 107 mmol/L (98-107); Estimated CRCL calculation 30 ml/min; Estimated Glomerular Filt Rate 43; Glucose 115 mg/dL (65-110); Potassium 3.8 mmol/L (3.4-5.0); Sodium 135 mmol/L (137-145)
[2023-06-07 05:11] LABS: INR 2.9; Prothrombin Time 32.1 Seconds (11.1-14.7)
[2023-06-07 05:12] LABS: Partial Thromboplastin Time 71.4 SECONDS (22.3-36.8)
[2023-06-07 10:53] LABS: Folic Acid 13.8 ng/mL (2.76->20); Vitamin B12 > 1000.0 pg/mL (239-931)
[2023-06-07] MEDS: dilTIAZem 100 MG/100 ML 100 MG/100 ML BAG 10 MG IV CONT ×2 (11:03→21:51)
[2023-06-07] MEDS: ASPIRIN 81 MG ENTERIC TABLET PO (11:04)
[2023-06-07] MEDS: ATORVASTATIN 10 MG TABLET PO (11:04)
[2023-06-07] MEDS: CYANOCOBALAMIN 1,000 MCG TABLET 1000 MCG PO (11:05)
[2023-06-07] MEDS: DOXYCYCLINE HYCLATE 100 MG TABLET PO ×2 (11:05→22:15)
[2023-06-07] MEDS: DULoxetine HCL 60 MG CAPSULE.DR PO (11:05)
[2023-06-07] MEDS: SENNA/DOCUSATE SODIUM TABLET 1 TAB PO (11:05)
[2023-06-07] MEDS: FAMOTIDINE 20 MG TABLET PO ×2 (11:05→22:15)
[2023-06-07] MEDS: FUROSEMIDE 20 MG TABLET PO (11:06)
[2023-06-07] MEDS: LORazepam (*CRX) 0.5 MG TABLET PO (11:06)
[2023-06-07] MEDS: lamoTRIgine 100 MG TABLET PO (11:06)
[2023-06-07] MEDS: levETIRAcetam 250 MG TABLET PO ×2 (11:06→22:16)
[2023-06-07] MEDS: LORATADINE 10 MG TABLET PO (11:06)
[2023-06-07] MEDS: MIRABEGRON 25 MG ER TABLET PO (11:08)
[2023-06-07] MEDS: OSELTAMIVIR PHOSPHATE 30 MG CAPSULE PO (11:08)
[2023-06-07] MEDS: POTASSIUM CHLORIDE 20 MEQ ER TABLET PO (11:09)
[2023-06-07] MEDS: PANTOPRAZOLE SOD SESQUIHYDRATE 20 MG TAB PO (11:09)
--- NOTE | 2023-06-07 19:43 | PM.IMPN ---
Progress Note: A&P Assessment and Plan (1) Abnormal chest x-ray: Code(s): R93.89 - Abnormal findings on diagnostic imaging of other specified body structures Status: Acute (2) Confusion: Code(s): R41.0 - Disorientation, unspecified Status: Acute (3) Dehydration: Code(s): E86.0 - Dehydration Status: Acute (4) Unwitnessed fall: Code(s): R29.6 - Repeated falls Status: Acute (5) Urinary tract infection: Code(s): N39.0 - Urinary tract infection, site not specified Status: Acute (6) Chronic pain: Qualifiers: Chronic pain type: other chronic postprocedural pain Qualified Code(s): G89.28 - Other chronic postprocedural pain Code(s): G89.29 - Other chronic pain Status: Acute (7) Iron deficiency anemia: Qualifiers: Iron deficiency anemia type: inadequate dietary iron intake Qualified Code(s): D50.8 - Other iron deficiency anemias Code(s): D50.9 - Iron deficiency anemia, unspecified Status: Acute (8) Chronic anticoagulation: Code(s): 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 Status: Acute (9) Gastroesophageal reflux disease: Qualifiers: Esophagitis presence: with esophagitis Esophagitis bleeding: without hemorrhage Qualified Code(s): K21.00 - Gastro-esophageal reflux disease with esophagitis, without bleeding Code(s): K21.9 - Gastro-esophageal reflux disease without esophagitis Status: Acute (10) Sepsis: Code(s): A41.9 - Sepsis, unspecified organism Status: Acute (11) Essential hypertension: Code(s): I10 - Essential (primary) hypertension Status: Chronic (12) GERD (gastroesophageal reflux disease): Qualifiers: Esophagitis presence: esophagitis presence not specified Qualified Code(s): K21.9 - Gastro-esophageal reflux disease without esophagitis Code(s): K21.9 - Gastro-esophageal reflux disease without esophagitis Status: Chronic (13) Hyperlipidemia: Qualifiers: Hyperlipidemia type: unspecified Qualified Code(s): E78.5 - Hyperlipidemia, unspecified Code(s): E78.5 - Hyperlipidemia, unspecified Status: Chronic (14) Depression: Qualifiers: Depression Type: other depression Qualified Code(s): F32.89 - Other specified depressive episodes Code(s): F32.9 - Major depressive disorder, single episode, unspecified Status: Chronic (15) Dementia: Qualifiers: Dementia type: unspecified type Dementia behavioral disturbance: without behavioral disturbance Qualified Code(s): F03.90 - Unspecified dementia without behavioral disturbance Code(s): F03.90 - Unspecified dementia, unspecified severity, without behavioral disturbance, psychotic disturbance, mood disturbance, and anxiety Status: Chronic Plan Admit patient to IMU under full inpatient status Patient admitted sepsis due to bilateral pneumonia, UTI and influenza A Patient received IV Rocephin in the ER x1 dose Continue with IV meropenem 1 g b.i.d. on the floor Added azithromycin 500 mg IV daily to cover for bacterial pneumonia Continue with the antiviral meds for influenza A Patient received septic doses of IV hydration in the ER Continue with gentle IV hydration with normal saline at 75 cc/hour Strict eyes and nose PT OT evaluation to be ordered once patient is more stable Sputum sent for culture ? Patient seen and examined at bedside during my morning rounds ? Collaborated with patient's nurse at the bedside in detail and addressed all concerns ? Labs, electrolytes, radiology, investigations and test results reviewed ? Consult/Nursing/Ancilliary notes on the chart reviewed and appreciated Repeat labs in a.m. Electrolyte replacement as per protocol. Patient will be monitored very closely on the floor. Further recommendations as per the hospital course. Time Spent With Patient Time with
[2023-06-07] MEDS: SODIUM CHLORIDE 0.9% IV 1,000 ML 75 ML IV CONT (22:15)
[2023-06-07] MEDS: AZITHROMYCIN 500 MG/NS 250 ML 500 MG/250 ML BAG 250 MG IVPB (22:15)
[2023-06-07] MEDS: MELATONIN 3 MG TABLET PO (22:16)
[2023-06-07] MEDS: DONEPEZIL HCL 10 MG TABLET PO (22:16)
[2023-06-08] VITALS (16 sets, daily range): BP systolic 94–156; BP diastolic 47–94; PULSE 76–96; RESP 20–28; TEMP 36.1–37.3; O2SAT 90–97
[2023-06-08] MEDS: MEROPENEM 1 GM/NS 100 ML 1 GM/100 ML BAG IVPB ×2 (00:01→14:18)
[2023-06-08 05:38] LABS: Basophils Absolute Auto 0.1 K/mm3 (0.0-0.1); Basophils Percent Auto 0.6 % (0.2-1.2); Eosinophils Absolute Auto 0.1 K/mm3 (0-0.3); Eosinophils Percent Auto 0.5 % (0-4.4); Hematocrit 26.5 % (37.0-47.0); Hemoglobin 8.7 g/dL (12.0-15.0); Immature Granulocyte Absolute 0.42 K/mm3 (0.00-0.031); Immature Granulocyte Percent A 3.2 % (0-0.5); Lymphocytes Absolute Auto 0.81 K/mm3 (0.9-3.2); Lymphocytes Percent Auto 6.1 % (18.3-44.2); Mean Corpuscular HGB Conc 32.8 g/dl (32-36); Mean Corpuscular Hemoglobin 33.3 pg (26-34); Mean Corpuscular Volume 101.5 fl (80-100); Mean Platelet Volume 9.9 fl (7.4-10.4); Monocytes Percent Auto 7.6 % (2.6-8.5); Neutrophils Absolute Auto 10.8 K/mm3 (1.3-6.7); Nucleated Red Blood Cells Perc 0.2 % (0.0-0.2); Platelet Count Result 316 k/mm3 (150-375); Red Blood Count 2.61 M/mm3 (4.2-5.4); Red Cell Distribution Width 14.1 % (11.5-14.5); White Blood Count 13.2 K/mm3 (4.5-10.0)
[2023-06-08 05:52] LABS: Anion Gap 8 mmol/L (8-16); Blood Urea Nitrogen 24 mg/dL (7-17); Carbon Dioxide 22 mmol/L (22-30); Chloride 107 mmol/L (98-107); Estimated CRCL calculation 33 ml/min; Estimated Glomerular Filt Rate 47; Glucose 109 mg/dL (65-110); Magnesium 2.2 mg/dL (1.6-2.3); Phosphorus 2.8 mg/dL (2.5-4.5); Sodium 137 mmol/L (137-145)
[2023-06-08] MEDS: PANTOPRAZOLE SOD SESQUIHYDRATE 20 MG TAB PO (09:00)
[2023-06-08 09:05] LABS: Glucose Point of Care 96 mg/dl (65-105)
[2023-06-08] MEDS: LORATADINE 10 MG TABLET PO (10:28)
[2023-06-08] MEDS: ASPIRIN 81 MG ENTERIC TABLET PO (10:28)
[2023-06-08] MEDS: POTASSIUM CHLORIDE 20 MEQ ER TABLET PO ×2 (10:28→18:12)
[2023-06-08] MEDS: ATORVASTATIN 10 MG TABLET PO (10:28)
[2023-06-08] MEDS: DOXYCYCLINE HYCLATE 100 MG TABLET PO ×2 (10:29→21:37)
[2023-06-08] MEDS: FAMOTIDINE 20 MG TABLET PO ×2 (10:29→21:37)
[2023-06-08] MEDS: lamoTRIgine 100 MG TABLET PO (10:29)
[2023-06-08] MEDS: CYANOCOBALAMIN 1,000 MCG TABLET 1000 MCG PO (10:29)
[2023-06-08] MEDS: FUROSEMIDE 20 MG TABLET PO (10:29)
[2023-06-08] MEDS: levETIRAcetam 250 MG TABLET PO ×2 (10:29→21:37)
[2023-06-08] MEDS: OSELTAMIVIR PHOSPHATE 30 MG CAPSULE PO (10:29)
[2023-06-08] MEDS: LORazepam (*CRX) 0.5 MG TABLET PO (10:29)
[2023-06-08] MEDS: DULoxetine HCL 60 MG CAPSULE.DR PO (10:30)
[2023-06-08] MEDS: SENNA/DOCUSATE SODIUM TABLET 1 TAB PO (10:30)
[2023-06-08] MEDS: MIRABEGRON 25 MG ER TABLET PO (10:32)
[2023-06-08] MEDS: MAGNESIUM OXIDE 400 MG TABLET PO (10:34)
[2023-06-08] MEDS: ALBUTEROL SULFATE NEB 2.5 MG/3 ML INH INHALATION ×2 (13:25→21:46)
[2023-06-08] MEDS: IPRATROPIUM BR 0.02% INH SOLN 0.5 MG/2.5 ML VIAL INHALATION ×2 (13:25→21:46)
[2023-06-08] MEDS: FERROUS SULFATE 325 MG TABLET DR PO (14:17)
[2023-06-08] MEDS: SODIUM CHLORIDE 0.9% IV 1,000 ML 75 ML IV CONT (14:19)
[2023-06-08] MEDS: dilTIAZem 100 MG/100 ML 100 MG/100 ML BAG IV CONT (16:30)
--- NOTE | 2023-06-08 17:51 | PM.IMPN ---
Progress Note: A&P Assessment and Plan (1) Abnormal chest x-ray: Code(s): R93.89 - Abnormal findings on diagnostic imaging of other specified body structures Status: Acute (2) Confusion: Code(s): R41.0 - Disorientation, unspecified Status: Acute (3) Dehydration: Code(s): E86.0 - Dehydration Status: Acute (4) Unwitnessed fall: Code(s): R29.6 - Repeated falls Status: Acute (5) Urinary tract infection: Code(s): N39.0 - Urinary tract infection, site not specified Status: Acute (6) Chronic pain: Qualifiers: Chronic pain type: other chronic postprocedural pain Qualified Code(s): G89.28 - Other chronic postprocedural pain Code(s): G89.29 - Other chronic pain Status: Acute (7) Iron deficiency anemia: Qualifiers: Iron deficiency anemia type: inadequate dietary iron intake Qualified Code(s): D50.8 - Other iron deficiency anemias Code(s): D50.9 - Iron deficiency anemia, unspecified Status: Acute (8) Chronic anticoagulation: Code(s): 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 Status: Acute (9) Gastroesophageal reflux disease: Qualifiers: Esophagitis presence: with esophagitis Esophagitis bleeding: without hemorrhage Qualified Code(s): K21.00 - Gastro-esophageal reflux disease with esophagitis, without bleeding Code(s): K21.9 - Gastro-esophageal reflux disease without esophagitis Status: Acute (10) Sepsis: Code(s): A41.9 - Sepsis, unspecified organism Status: Acute (11) Essential hypertension: Code(s): I10 - Essential (primary) hypertension Status: Chronic (12) Hyperlipidemia: Qualifiers: Hyperlipidemia type: unspecified Qualified Code(s): E78.5 - Hyperlipidemia, unspecified Code(s): E78.5 - Hyperlipidemia, unspecified Status: Chronic (13) Depression: Qualifiers: Depression Type: other depression Qualified Code(s): F32.89 - Other specified depressive episodes Code(s): F32.9 - Major depressive disorder, single episode, unspecified Status: Chronic (14) Dementia: Qualifiers: Dementia type: unspecified type Dementia behavioral disturbance: without behavioral disturbance Qualified Code(s): F03.90 - Unspecified dementia without behavioral disturbance Code(s): F03.90 - Unspecified dementia, unspecified severity, without behavioral disturbance, psychotic disturbance, mood disturbance, and anxiety Status: Chronic Plan Admit patient to IMU under full inpatient status Continue cardiac tele monitoring Patient currently on IV Cardizem drip for AFib with RVR Titrate IV Cardizem drip to keep heart rate around 100 Cardiology consult given for evaluation and further treatment recommendations Patient admitted sepsis due to bilateral pneumonia, UTI and influenza A Patient received IV Rocephin in the ER x1 dose Continue with IV meropenem 1 g b.i.d. on the floor Added azithromycin 500 mg IV daily to cover for bacterial pneumonia Continue with the antiviral meds for influenza A Patient received septic doses of IV hydration in the ER Her WBC count is slowly improving from 20-15.8-13.2 Her creatinine is also improving from 1.3-1.2-1.1 Continue with gentle IV hydration with normal saline at 75 cc/hour Strict I&Os PT OT evaluation to be ordered once patient is more stable Sputum sent for culture ? Patient seen and examined at bedside during my morning rounds ? Collaborated with patient's nurse at the bedside in detail and addressed all concerns ? Labs, electrolytes, radiology, investigations and test results reviewed ? Consult/Nursing/Ancilliary notes on the chart reviewed and appreciated Repeat labs in a.m. Electrolyte replacement as per protocol. Patient will be monitored very closely on the floor. Further recommendations as per the hospital course. Time Spent With Patient Kian
[2023-06-08] MEDS: AZITHROMYCIN 500 MG/NS 250 ML 500 MG/250 ML BAG 250 MG IVPB (21:36)
[2023-06-08] MEDS: guaiFENesin 200 MG/10 ML UDC 100 MG PO (21:36)
[2023-06-08] MEDS: MELATONIN 3 MG TABLET PO (21:37)
[2023-06-08] MEDS: DONEPEZIL HCL 10 MG TABLET PO (21:38)
[2023-06-09] VITALS (24 sets, daily range): BP systolic 90–121; BP diastolic 53–82; PULSE 78–109; RESP 22–30; TEMP 36.1–37.2; O2SAT 88–98
[2023-06-09] MEDS: MEROPENEM 1 GM/NS 100 ML 1 GM/100 ML BAG IVPB ×2 (01:03→14:31)
[2023-06-09] MEDS: ALBUTEROL SULFATE NEB 2.5 MG/3 ML INH INHALATION (02:39)
[2023-06-09] MEDS: IPRATROPIUM BR 0.02% INH SOLN 0.5 MG/2.5 ML VIAL INHALATION (02:39)
[2023-06-09] MEDS: SALINE 0.65% NAS SOLN 44 ML BTL 1 SPRAY NASAL (03:19)
[2023-06-09 04:41] LABS: Basophils Percent Auto 0.3 % (0.2-1.2); Eosinophils Percent Auto 0.1 % (0-4.4); Hematocrit 26.8 % (37.0-47.0); Hemoglobin 8.9 g/dL (12.0-15.0); Immature Granulocyte Absolute 0.15 K/mm3 (0.00-0.031); Immature Granulocyte Percent A 1.5 % (0-0.5); Lymphocytes Absolute Auto 0.79 K/mm3 (0.9-3.2); Lymphocytes Percent Auto 7.7 % (18.3-44.2); Mean Corpuscular HGB Conc 33.2 g/dl (32-36); Mean Corpuscular Hemoglobin 33.5 pg (26-34); Mean Corpuscular Volume 100.8 fl (80-100); Mean Platelet Volume 10.4 fl (7.4-10.4); Monocytes Absolute Auto 0.8 K/mm3 (0.1-0.6); Monocytes Percent Auto 7.8 % (2.6-8.5); Neutrophils Absolute Auto 8.5 K/mm3 (1.3-6.7); Neutrophils Percent Auto 82.6 % (45.5-73.1); Nucleated Red Blood Cells Perc 0.3 % (0.0-0.2); Platelet Count Result 322 k/mm3 (150-375); Red Blood Count 2.66 M/mm3 (4.2-5.4); Red Cell Distribution Width 14.5 % (11.5-14.5); White Blood Count 10.3 K/mm3 (4.5-10.0)
[2023-06-09 05:07] LABS: Anion Gap 12 mmol/L (8-16); Blood Urea Nitrogen 23 mg/dL (7-17); Calcium 8.4 mg/dL (8.4-10.2); Carbon Dioxide 18 mmol/L (22-30); Chloride 109 mmol/L (98-107); Estimated CRCL calculation 40 ml/min; Estimated Glomerular Filt Rate 60; Glucose 103 mg/dL (65-110); Potassium 4.2 mmol/L (3.4-5.0); Sodium 139 mmol/L (137-145)
--- NOTE | 2023-06-09 05:42 | PCRCNOTE ---
RT spoke to nurse regarding getting scheduled tx's for patient due to secretions present and consistent wheezing. Nurse stated she would contact doctor to discuss this. Pt requiring increased oxygen overnight, chest xray to be completed today, 06/09/23.
[2023-06-09] MEDS: WATER FOR IRRIGATION, STERILE 1,000 ML BOTTLE 1000 ML (05:53)
[2023-06-09] MEDS: IPRATROPIUM 0.5 MG/ALBUTEROL SULFATE 2.5 MG AMPUL.NEB 3 ML INHALATION ×3 (08:33→19:44)
[2023-06-09] MEDS: DORNASE ALFA INH SOLN 1 MG/ML 2.5 ML AMP 2.5 MG INHALATION ×2 (08:40→20:36)
[2023-06-09] MEDS: SODIUM CHLORIDE 0.9% IV 1,000 ML 75 ML IV CONT (09:02)
[2023-06-09 09:07] LABS: Glucose Point of Care 117 mg/dl (65-105)
--- NOTE | 2023-06-09 09:43 | ECHO_ITS ---
Patient Info Name: Kenton Wilhelm Age: 82 years : 1940 Gender: Female Ht: 63 in Wt: 165 lbs BSA: 1.85 m2 HR: 92 bpm BP: 117 / 58 mmHg Heart Rhythm: Atrial Fibrillation Technical Quality: Fair Exam Date: 06/09/2023 2:57 PM Exam Location: Echo Lab Patient Status: Inpatient Admit Date: 06/06/2023 Staff Ordering Physician: Kaden Turner MD Clearing Tub Worker: Tara Syed RDCS Attending Provider: Silver Rene MD Referring Physician: Johnny XIE; Exam Type: CA echo doppler color flow Study Info Indications - h/o chf and hypoxia Complete two-dimensional, color flow and Doppler transthoracic echocardiogram is performed. Summary 1. Complete two-dimensional, color flow and Doppler transthoracic echocardiogram is performed. 2. Normal LV size and wall thickness, borderline LV systolic function with variable contractility due to atrial fibrillation, ejection fraction about 50%. Indeterminate diastolic function. Mild left atrial enlargement. Normal mitral valve structure, trace MR. Aortic valve sclerosis, mild aortic stenosis, aortic valve area 2.1 cm2. Trace TR. RVSP 34 mmHg. Atrial fibrillation. Left Ventricle Left ventricular chamber dimension is normal. Left ventricular systolic function is mildly reduced, estimated at 45-50%. There is no increased left ventricular wall thickness. Right Ventricle Right ventricular chamber dimension is normal. Right ventricular systolic function is normal. Left Atria Left atrial chamber dimension is mildly enlarged. Right Atria Right atrial chamber dimension is normal. Aortic Valve There is mild aortic valve sclerosis. There is mild aortic valve stenosis with a peak velocity of 184 cm/s, mean gradient of 6 mmHg, and aortic valve area of 2.2 cm2. Pulmonic Valve The pulmonic valve is normal. There is mild pulmonic regurgitation. Mitral Valve The mitral valve has normal leaflets. There is trace mitral valve regurgitation. Tricuspid Valve The tricuspid valve leaflets are normal. There is trace tricuspid valve regurgitation. Pericardium/Pleural There is trivial pericardial effusion. Inferior Vena Cava Normal inferior vena cava with >50% collapse upon inspiration consistent with Empty right atrial pressure, 10 mmHg. Aorta The aortic root size at the sinus of Valsalva is normal. Left Ventricular Outflow Tract Name Value Normal LVOT 2D LVOT Diameter 2.0 cm LVOT Doppler LVOT Peak Gradient 5 mmHg LVOT Mean Gradient 3 mmHg LVOT VTI 20 cm LVOT VTI/AV VTI Ratio 0.7 LVOT Stroke Volume 61 ml LVOT CO 5.8 l/min LVOT CI 3.1 l/min/m2 Pulmonic Valve Name Value Normal RVOT Doppler RVOT Peak Gradient 3 mmHg PV Doppler
--- NOTE | 2023-06-09 09:53 | PCSTNOTE ---
Please refer to the Bedside Swallow Evaluation in the EMR.
--- NOTE | 2023-06-09 09:59 | PCSTNOTE ---
Bedside Swallow Evaluation: Pt was seen for a very limited evaluation due to lethargy/decreased arousal.??She was positioned upright in the bed and required multiple verbal stimulus to arouse.??She did not wake enough for an oral exam. She did not dry swallow on command and produced a very weak voice on command.??Ice chips were presented via spoon to her mouth and upon sensation of the spoon she responsively opened and took ice chips.??Pt actively chewed ice in all 3 trials.??For the first trial swallow trigger was 3-4 seconds delayed. In the subsequent trials, swallow was more timely but excessive coughing occurred.??At this time due to the lethargy and response to ice chip trials, a (MBS) modified barium swallow is recommended but it should wait until lethargy improves.??ST spoke with provider who wants MBS attempted today.? Per X-ray: MBS can't be completed per their schedule until 1:30. Results and recommendations to follow. Thank you for this referral.
[2023-06-09 10:17] LABS: NT Pro B Type Natriuretic Pept 10400 pg/mL (19.9-100)
[2023-06-09] MEDS: FUROSEMIDE INJ 40 MG/4 ML VIAL IV PUSH (10:55)
--- NOTE | 2023-06-09 11:42 | PM.CNPUL ---
Assessment and Plan Assessment and plan (1) Influenza A: Code(s): J10.1 - Influenza due to other identified influenza virus with other respiratory manifestations Status: Acute Assessment and Plan: Patient tested positive for influenza a on 06/07/2023 and now has worsening hypoxemic respiratory failure. Plan: Patient received one dose of Tamiflu on 06/07 and 06/08. Her dose this morning was held for concerns of aspiration. Tamiflu is the one medicine that has been showed to be beneficial in influenza infection and recommend continuing this oral medicine if she passes her barium swallow. If she does not pass her barium swallow an NG tube should be placed so that she can receive this medicine at 30 mg per tube b.i.d. now that her creatinine clearance has improved. If creatinine clearance improves to greater than 50 will provide her with full dose at 75 mg q.12 hours. (2) Respiratory failure with hypoxia: Code(s): J96.91 - Respiratory failure, unspecified with hypoxia Status: Acute Assessment and Plan: Patient tested positive for influenza a on 06/07/2023 and now has worsening hypoxemic respiratory failure. She has a known EF of 30-35% in 2019 and currently 4.7 L positive since admission, new left pleural effusion with perihilar edema on her chest x-ray, and a BNP that has increased from 1350 to 76560. There were concerns about patient aspirating this morning at the bedside speech therapy recommends a barium swallow which has been ordered. She is NPO. Etiology of worsening hypoxic respiratory failure includes progressive influenza a, fluid overload, aspiration, ARDS from influenza or Klebsiella UTI, and bacterial super infection. Plan: I will order an ABG to assess for hypercarbic respiratory failure. Regarding influenza infection, see above. Regarding the possibility of fluid overload, I have ordered repeat echocardiogram to assess her LV function. Patient is given 40 of Lasix IV. Recommend as aggressive diuresis as tolerated by her cardiac and renal systems. Regarding the possibility fluid overload, ARDS and bacterial superinfection I will order CT scan of the chest without contrast. Regarding her Klebsiella UTI and possible bacterial super infection, I have spoken with the Infectious Disease pharmacist and at this time will continue meropenem, doxycycline and give 1 dose of vancomycin. Her sputum has grown out Staph aureus identification pending. We will send the nasal swab for MRSA RT PCR. Patient is listed as DNR. Discussed with Dr. Rene, will follow with you History of Present Illness History of Present Illness Consult date: 06/09/23 Chief complaint: AFIB WITH RVR, URINARY TRACT INFECTION, DEHYDRATIO Narrative: 06/09/2023: This is a new pulmonary consult for influenza a pneumonia and hypoxia. 82-year-old with a history of Alzheimer's, schizoaffective disorder, GERD, hyperlipidemia, seizures, paroxysmal atrial fibrillation on rivaroxaban, congestive heart failure, anemia with negative EGD and colonoscopy in the past who lives at the shelter. 06/06/2023 the patient was found next to her bed after a fall and brought to the hospital. She was A&O x1 which appears to be her baseline, she is in no distress, she was in AFib with RVR her room air saturations were 96 her creatinine was 1.3, her white blood cell count was 20.0 with 11% bands, her BNP was 1350, she was febrile, her CRP was 40.3, TSH was 0.953, normal. Her INR was 3.5 and her chest x-ray showed bilateral infiltrates. She had a UTI. COVID RT PCR study was negative. Patient was started on diltiazem drip, ceftriaxone which was changed to meropenem for as she had a history of an ESBL E coli UTI on 09/13/2022. 06/07/2023 the patient was on room air with saturations ranging from 92-99%. She tested positive for influenza A and was started on Tamiflu at 10:29 a.m.. She was dosed Q 24 hours for decreased creatinine. Her white blood
--- NOTE | 2023-06-09 12:21 | PM.CNCAR ---
Assessment and Plan Assessment and plan (1) Influenza A: Code(s): J10.1 - Influenza due to other identified influenza virus with other respiratory manifestations Status: Acute (2) Atrial fibrillation with rapid ventricular response: Code(s): I48.91 - Unspecified atrial fibrillation Status: Acute Plan This is an 82[facility]-old [facility] resident kit brought to the hospital because of a fall. She has atrial fibrillation of unknown chronicity. Heart rate is relatively well controlled on low-dose of IV to diltiazem and this morning on hospital day 3. She was placed on NPO orders because of concern about swallowing. Anticoagulation has been stopped on admission as described above. She will therefore be a rate control patient with no attempt at restoring sinus rhythm. I have to wait until her swallowing study is done and she is allowed to take p.o. medication hopefully I can transition her from IV diltiazem to p.o. medication for rate control. I do not perceive any aggressive/invasive evaluation in this elderly [facility] resident who is DNR status Kaden Donahue MD [facility] History of Present Illness History of Present Illness Consult date/time: 06/09/23 12:21 Reason For Visit: AFIB WITH RVR, URINARY TRACT INFECTION, DEHYDRATIO Narrative: This is an 82-year-old woman I am seeing today at the request of the hospitalist because of atrial fibrillation. The patient is incapable of providing any history because of dementia and she is essentially incoherent. [facility] because of a fall that was unwitnessed. Upon evaluation in the emergency room she was found to be in atrial fibrillation with rapid ventricular response and she was placed on intravenous diltiazem. She remains on IV diltiazem and this is the 3rd day in the hospital. Her heart rate is reasonably well controlled. Her electrocardiogram also shows a chronic left bundle branch block. There was not electrocardiogram in the chart in September of 2022 that demonstrated sinus rhythm. The onset of her atrial fibrillation however is clearly unknown. She had been on anticoagulation with Xarelto 20 mg daily prior to admission that has been stopped by the hospitalist service because of a high INR she is also anemic and according to the notes [facility] fall at the [facility] with some frequency. She does have DNR orders on her chart. Earlier today the nurses tell me that she failed a bedside swallowing study is so she has been placed NPO and has a barium swallow study ordered in Radiology for this afternoon. She of note she has also tested positive for influenza A. Review of Systems Review of Systems: ROS unobtainable: Yes unobtainable due to mental status PMFSH Past Medical History Medical History Alzheimers disease Anxiety Chronic anticoagulation Congestive heart failure Dementia Follows with neurologist, Dr. Galindo. 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 Osteoporosis Paroxysmal atrial fibrillation Pneumonia due to COVID-19 virus Schizoaffective disorder Seizure disorder Thoracic compression fracture T10 Vitamin D deficiency Surgical History Surgical History History of arthroscopy of left shoulder History of bladder suspension procedure History of hysterectomy History of total left hip arthroplasty (2015) Family History Family History Sibling Dementia Cerebrovascular accident Sibling Acute myocardial infarction Mother Cirrhosis Father Emphysema of lung Social History Social His
[2023-06-09 12:56] LABS: Alveolar/Arterial O2 Gradient 303.6 mmHg; Base Excess ABG -4.1 mEq/l (+/-2.0); HCO3 ABG 18.7 mEq/l (22.0-26.0); Oxygen Content ABG 12.5 %vol (16.0-22.0); Oxygen Saturation ABG 94.5 % (95.0-100.0); Oxyhemoglobin 92.3 % THb (90.0-100.0); PCO2 ABG 26.6 mmHg (35.0-45.0); PO2 ABG 66.2 mmHg (80.0-100.0); PO2 FiO2 Ratio Arterial Blood 1.18 %; Total Hemoglobin 9.6 g/dL (12.0-18.0); pH ABG 7.464 (7.350-7.450)
[2023-06-09 12:57] LABS: Fractional Inspired Oxygen 48 %
[2023-06-09 12:58] LABS: Device HIGH FLOW NASAL CANN; Site Drawn RIGHT BRACHIAL
[2023-06-09] MEDS: VANCOMYCIN 2,000 MG/NS 500 ML 2,000 MG/500 ML BAG 250 MG IVPB (14:16)
[2023-06-09] MEDS: POTASSIUM CHLORIDE 20 MEQ ER TABLET PO ×2 (14:26→18:05)
[2023-06-09] MEDS: levETIRAcetam 250 MG TABLET PO ×2 (14:27→22:13)
[2023-06-09] MEDS: DOXYCYCLINE HYCLATE 100 MG TABLET PO ×2 (14:27→22:13)
[2023-06-09] MEDS: lamoTRIgine 100 MG TABLET PO (14:27)
[2023-06-09] MEDS: MIRABEGRON 25 MG ER TABLET PO (14:28)
[2023-06-09] MEDS: LORATADINE 10 MG TABLET PO (14:28)
[2023-06-09] MEDS: OSELTAMIVIR PHOSPHATE 30 MG CAPSULE PO ×2 (14:30→22:13)
[2023-06-09] MEDS: PANTOPRAZOLE SOD SESQUIHYDRATE 20 MG TAB PO (14:30)
--- NOTE | 2023-06-09 14:34 | PCSTNOTE ---
Please refer to the Modified Barium Swallow Evaluation in the EMR. This lethargic pt was seated for a lateral view. Pt was presented with 5cc of thin liquid barium via a spoon, pudding consistency barium via a spoon, mixed liquid/solid consistency spoon, a cracker coated with barium pudding via spoon, and an uncontrolled thin liquid barium bolus.? This was presented via a straw & cup.? Oral preparatory and oral phase symptoms:? inconsistent premature spill & loss of bolus control which spilled intermittently to the level of the pyriform sinuses. Slow mastication was noted with solids which were given in small amounts/pieces. Pt was independently able to clear all contents from oral cavity; no oral leakage occurred.? Pharyngeal phase symptoms: reduced tongue base retraction as evidenced by mild vallecular residue with pudding consistency (pt independently dry swallowed and cleared all residual);? very shallow (flash) laryngeal penetration with thin liquids via a straw. No aspiration occurred. Esophageal stage symptoms: within functional limits.?? Impression: overall swallow was within functional limits for a level 5 minced and moist diet with regular liquids. Generalized oral weakness is felt to be related to weakness from her current medical condition and lethargy.? Recommendations: level 5 minced and moist diet with regular liquids; no further ST is recommended.?
--- NOTE | 2023-06-09 15:06 | PC.NURSE ---
POC reviewed with Dr. Rene to clarify if the Tamiflu 75 mg should be given in addition to the Tamiflu 30 mg that was just given. Per Dr. Rene start Tamiflu 75mg tonight at 2100. A call was placed to the Pharmacy to inform that the Tamiflu time change was needed. POC reviewed with Yovani Pharm-D. Per Yovani Pharm-D the Tamiflu 30 mg is correct dose due to the pt creatinine clearance. Dr. Rene notified et given report. Per Dr. Rene have Pharmacy review order with Dr. Turner. Yovani Pharm-D has been given report et will follow up with Dr. Turner M et review the POC. Will return Tamiflu [facility] to [facility].
[2023-06-09] MEDS: FERROUS SULFATE 325 MG TABLET DR PO (15:20)
[2023-06-09 16:15] LABS: Mycoplasma IgM Antibody Titer 53 U/mL (<770)
[2023-06-09] MEDS: dilTIAZem 100 MG/100 ML 100 MG/100 ML BAG IV CONT (17:51)
--- NOTE | 2023-06-09 21:19 | PM.IMPN ---
Progress Note: A&P Assessment and Plan (1) Abnormal chest x-ray: Code(s): R93.89 - Abnormal findings on diagnostic imaging of other specified body structures Status: Acute (2) Confusion: Code(s): R41.0 - Disorientation, unspecified Status: Acute (3) Dehydration: Code(s): E86.0 - Dehydration Status: Acute (4) Unwitnessed fall: Code(s): R29.6 - Repeated falls Status: Acute (5) Urinary tract infection: Code(s): N39.0 - Urinary tract infection, site not specified Status: Acute (6) Chronic pain: Qualifiers: Chronic pain type: other chronic postprocedural pain Qualified Code(s): G89.28 - Other chronic postprocedural pain Code(s): G89.29 - Other chronic pain Status: Acute (7) Iron deficiency anemia: Qualifiers: Iron deficiency anemia type: inadequate dietary iron intake Qualified Code(s): D50.8 - Other iron deficiency anemias Code(s): D50.9 - Iron deficiency anemia, unspecified Status: Acute (8) Chronic anticoagulation: Code(s): 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 Status: Acute (9) Gastroesophageal reflux disease: Qualifiers: Esophagitis presence: with esophagitis Esophagitis bleeding: without hemorrhage Qualified Code(s): K21.00 - Gastro-esophageal reflux disease with esophagitis, without bleeding Code(s): K21.9 - Gastro-esophageal reflux disease without esophagitis Status: Acute (10) Sepsis: Code(s): A41.9 - Sepsis, unspecified organism Status: Acute (11) Essential hypertension: Code(s): I10 - Essential (primary) hypertension Status: Chronic (12) Hyperlipidemia: Qualifiers: Hyperlipidemia type: unspecified Qualified Code(s): E78.5 - Hyperlipidemia, unspecified Code(s): E78.5 - Hyperlipidemia, unspecified Status: Chronic (13) Depression: Qualifiers: Depression Type: other depression Qualified Code(s): F32.89 - Other specified depressive episodes Code(s): F32.9 - Major depressive disorder, single episode, unspecified Status: Chronic (14) Dementia: Qualifiers: Dementia type: unspecified type Dementia behavioral disturbance: without behavioral disturbance Qualified Code(s): F03.90 - Unspecified dementia without behavioral disturbance Code(s): F03.90 - Unspecified dementia, unspecified severity, without behavioral disturbance, psychotic disturbance, mood disturbance, and anxiety Status: Chronic Plan Admit patient to IMU under full inpatient status Continue cardiac tele monitoring Patient currently on IV Cardizem drip for AFib with RVR Titrate IV Cardizem drip to keep heart rate around 100 Switch the IV Cardizem to oral Cardizem once heart rate is under control Cardiology consult given for evaluation and further treatment recommendations Anticoagulation initially held due to high INR Resume anticoagulation as per Cardiology Patient admitted with sepsis due to bilateral pneumonia, UTI and influenza A Patient received IV Rocephin in the ER x1 dose Continue with IV meropenem 1 g b.i.d. on the floor Added azithromycin 500 mg IV daily to cover for bacterial pneumonia Continue with the antiviral meds for influenza A Patient received septic doses of IV hydration in the ER Follow-up on blood and sputum cultures Her WBC count is slowly improving from 20-15.8-13.2-10.3 Her creatinine is also improving from 1.3-1.2-1.1-0.9 Patient appears to be fluid overloaded secondary to aggressive hydration DC IV fluids Patient given Lasix 40 mg IV x1 dose to be repeated in am Pulmonary consult given for evaluation and further treatment recommendations Strict I&Os PT OT evaluation to be ordered once patient is more stable ? Patient seen and examined at bedside during my morning rounds ? Collaborated with patient's nurse at the bedside in detail and addressed all concerns
[2023-06-09 22:03] LABS: MRSA (PCR) NOT DETECTED (NOT DETECTE)
[2023-06-09] MEDS: DONEPEZIL HCL 10 MG TABLET PO (22:12)
[2023-06-09] MEDS: guaiFENesin 12 HR 600 MG TABCR 1200 MG PO (22:13)
[2023-06-09] MEDS: FAMOTIDINE 20 MG TABLET PO (22:13)
[2023-06-09] MEDS: MELATONIN 3 MG TABLET PO (22:13)
[2023-06-10] VITALS (21 sets, daily range): BP systolic 106–125; BP diastolic 56–64; PULSE 75–111; RESP 20–28; TEMP 36.1–36.9; O2SAT 93–98
[2023-06-10] MEDS: MEROPENEM 1 GM/NS 100 ML 1 GM/100 ML BAG IVPB ×2 (00:26→15:05)
[2023-06-10] MEDS: IPRATROPIUM 0.5 MG/ALBUTEROL SULFATE 2.5 MG AMPUL.NEB 3 ML INHALATION ×4 (03:00→20:40)
[2023-06-10 05:26] LABS: Basophils Absolute Auto 0.1 K/mm3 (0.0-0.1); Basophils Percent Auto 0.5 % (0.2-1.2); Eosinophils Percent Auto 0.2 % (0-4.4); Hematocrit 26.1 % (37.0-47.0); Hemoglobin 8.6 g/dL (12.0-15.0); Immature Granulocyte Absolute 0.28 K/mm3 (0.00-0.031); Immature Granulocyte Percent A 2.8 % (0-0.5); Lymphocytes Absolute Auto 0.74 K/mm3 (0.9-3.2); Lymphocytes Percent Auto 7.4 % (18.3-44.2); Mean Corpuscular Hemoglobin 33.2 pg (26-34); Mean Corpuscular Volume 100.8 fl (80-100); Mean Platelet Volume 10.7 fl (7.4-10.4); Monocytes Absolute Auto 0.9 K/mm3 (0.1-0.6); Monocytes Percent Auto 8.5 % (2.6-8.5); Neutrophils Absolute Auto 8.1 K/mm3 (1.3-6.7); Neutrophils Percent Auto 80.6 % (45.5-73.1); Nucleated Red Blood Cells Perc 0.3 % (0.0-0.2); Platelet Count Result 331 k/mm3 (150-375); Red Blood Count 2.59 M/mm3 (4.2-5.4); Red Cell Distribution Width 14.4 % (11.5-14.5)
[2023-06-10 05:34] LABS: INR 1.3; Prothrombin Time 16.7 Seconds (11.1-14.7)
[2023-06-10 05:58] LABS: Anion Gap 9 mmol/L (8-16); Blood Urea Nitrogen 19 mg/dL (7-17); Calcium 8.7 mg/dL (8.4-10.2); Carbon Dioxide 21 mmol/L (22-30); Chloride 110 mmol/L (98-107); Estimated CRCL calculation 39 ml/min; Estimated Glomerular Filt Rate 60; Glucose 101 mg/dL (65-110); Potassium 3.9 mmol/L (3.4-5.0); Sodium 140 mmol/L (137-145)
[2023-06-10 06:04] LABS: Procalcitonin 1.2 ng/mL
[2023-06-10 07:33] LABS: Glucose Point of Care 101 mg/dl (65-105)
[2023-06-10] MEDS: DORNASE ALFA INH SOLN 1 MG/ML 2.5 ML AMP 2.5 MG INHALATION ×2 (08:10→20:40)
[2023-06-10] MEDS: FAMOTIDINE 20 MG TABLET PO ×2 (09:14→20:49)
[2023-06-10] MEDS: POTASSIUM CHLORIDE 20 MEQ ER TABLET PO ×2 (09:14→18:28)
[2023-06-10] MEDS: guaiFENesin 12 HR 600 MG TABCR 1200 MG PO ×2 (09:14→20:49)
[2023-06-10] MEDS: ASPIRIN 81 MG ENTERIC TABLET PO (09:14)
[2023-06-10] MEDS: PANTOPRAZOLE SOD SESQUIHYDRATE 20 MG TAB PO (09:14)
[2023-06-10] MEDS: DOXYCYCLINE HYCLATE 100 MG TABLET PO ×2 (09:14→20:49)
[2023-06-10] MEDS: CYANOCOBALAMIN 1,000 MCG TABLET 1000 MCG PO (09:15)
[2023-06-10] MEDS: levETIRAcetam 250 MG TABLET PO ×2 (09:15→20:49)
[2023-06-10] MEDS: LORazepam (*CRX) 0.5 MG TABLET PO (09:15)
[2023-06-10] MEDS: lamoTRIgine 100 MG TABLET PO (09:15)
[2023-06-10] MEDS: FLUTICASONE PROPIONATE 0.05% NA SPR 16 GM BTL (*BKC) 2 SPRAY NASAL (09:15)
[2023-06-10] MEDS: LORATADINE 10 MG TABLET PO (09:15)
[2023-06-10] MEDS: MAGNESIUM OXIDE 400 MG TABLET PO (09:15)
[2023-06-10] MEDS: ATORVASTATIN 10 MG TABLET PO (09:15)
[2023-06-10] MEDS: OSELTAMIVIR PHOSPHATE 30 MG CAPSULE PO ×2 (09:16→20:50)
[2023-06-10] MEDS: DULoxetine HCL 60 MG CAPSULE.DR PO (09:16)
[2023-06-10] MEDS: SENNA/DOCUSATE SODIUM TABLET 1 TAB PO (09:16)
[2023-06-10] MEDS: MIRABEGRON 25 MG ER TABLET PO (09:16)
[2023-06-10] MEDS: FUROSEMIDE INJ 40 MG/4 ML VIAL IV PUSH (09:17)
--- NOTE | 2023-06-10 10:48 | PM.IMPN ---
Progress Note: A&P Assessment and Plan (1) Sepsis: Code(s): A41.9 - Sepsis, unspecified organism Status: Acute Assessment and Plan: Patient with sepsis present on admission with tachycardia, low-grade fever, tachypnea, respiratory failure and leukocytosis. Related to influenza A, UTI and pneumonia. Lactic acid level was normal. Procalcitonin level was 1.2. Her creatinine is also improving from 1.3-1.2-1.1-0.9 Heart rate better controlled. White count has trended downward. Urine culture growing Klebsiella Blood cultures no growth to date Sputum culture growing MSSA. Continue current treatment plan. (2) Respiratory failure with hypoxia: Code(s): J96.91 - Respiratory failure, unspecified with hypoxia Status: Acute Assessment and Plan: Patient developed acute respiratory failure with hypoxia. Patient normally on room air. Patient was on room air on admission but condition progressively worsened has now developed respiratory failure with hypoxia. ABG yesterday showing 7.46/ on 7 L high-flow nasal cannula. [place] related to the influenza a and pneumonia. Consider also pulmonary edema. Continue Pulmozyme and bronchodilators. Continue IV Lasix. Continue diltiazem to control heart rate. Recommend switching to oral diltiazem but will defer to Cardiology. Wean oxygen as tolerated. Increase activity level as possible. Pulmonary consulted and appreciate their input (3) Pneumonia: Code(s): J18.9 - Pneumonia, unspecified organism Status: Acute Assessment and Plan: Chest x-ray admission shows bilateral pulmonary infiltrates and or atelectasis left greater than right. CT of the chest without contrast showed lobar consolidation LLL and partial consolidation of the lingula and right lower lobe. She also has small-moderate left pleural effusions and minimal right pleural effusion. Suspected superinfection from MSAA related to the current influenza infection Blood cultures are no growth to date. Sputum cultures growing MSSA. White count trending downward. Continue IV antibiotics. (4) Influenza A: Code(s): J10.1 - Influenza due to other identified influenza virus with other respiratory manifestations Status: Acute Assessment and Plan: Patient tested positive for influenza A on admission. Tamiflu started. Wean O2 as tolerated (5) Urinary tract infection: Code(s): N39.0 - Urinary tract infection, site not specified Status: Acute Assessment and Plan: UA is consistent with UTI. UCx collected. Abx started. UCx growing Klebsiella that was kirk-sensitive. Continue abx (6) Paroxysmal atrial fibrillation: Code(s): I48.0 - Paroxysmal atrial fibrillation Status: Chronic Assessment and Plan: Patient with pAFib. Patient with AFib/RVR here felt related to above Started on IV Diltiazem to control HR Swallowing okay so will change to oral diltiazem. Appreciate Cardiology input. Resume Xaravinot (7) Unwitnessed fall: Code(s): R29.6 - Repeated falls Status: Acute Assessment and Plan: Patient had an unwitnessed fall that prompted this admission. [place] related to Influenza A and developing bacterial PNA. 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 Cervical spine CT showing no fracture Left Hip xray showing no fracture Right hand xray showing no acute fracture. No point tenderness on exam (8) Dementia: Qualifiers: Dementia type: unspecified type Dementia behavioral disturbance: without behavioral disturbance Qualified Code(s): F03.90 - Unspecified dementia without behavioral disturbance Code(s): F03.90 - Unspecified dementia, unspecified severity, without behavioral disturbance, psychotic disturbance, mood disturbance, and anxiety Status: Chronic Assessment and Plan: Stable. Increase activity Some concern for aspiration MBS showing she can swallow safely with lev
--- NOTE | 2023-06-10 11:01 | PM.PNCARD ---
Progress Note: A&P Assessment and Plan (1) Atrial fibrillation with rapid ventricular response: Code(s): I48.91 - Unspecified atrial fibrillation Status: Acute Assessment and Plan: Patient admitted with AFib with RVR, rate controlled with IV diltiazem. Atrial fibrillation paroxysmal versus persistent. -bridge IV diltiazem to p.o. diltiazem. Outpatient medications show anticoagulation with rivaroxaban. Patient presented with fall. She will need to be assessed for gait stability before continuation of chronic anticoagulation. Plan discussed with Dr Davis. -echo with Doppler pending -telemetry monitoring -patient is DNR (2) Fall: Code(s): W19.XXXA - Unspecified fall, initial encounter Status: Acute Assessment and Plan: PT OT evaluation (3) Influenza A: Code(s): J10.1 - Influenza due to other identified influenza virus with other respiratory manifestations Status: Acute Assessment and Plan: Management as per primary team. Subjective Date/time seen: 06/10/23 11:01 Interval history: Date of service: 06/10/2023 Interval history: Patient is lying down in the bed, somewhat somnolent. Denies ongoing chest pain or shortness of breath. On telemetry, she is in atrial fibrillation with relatively controlled ventricular response. He has been on IV diltiazem. Exam Narrative: PHYSICAL EXAMINATION: GENERAL: Elderly female, slightly somnolent MENTAL STATUS: No agitation EYES: Extraocular movements intact, no pallor EARS: External ears appear normal, hearing grossly normal NOSE: Normal and patent, no discharge MOUTH: Mucous membranes moist, tongue normal NECK: Supple, no JVD CHEST: Coarse breath sounds HEART: Normal rate, irregular rhythm ABDOMEN: Soft, nontender NEUROLOGICAL: Somnolent MUSCULOSKELETAL: no amputation EXTREMITIES: Trace pedal edema, no clubbing, no cyanosis SKIN: no rash on the exposed area, no cyanosis PSYCHIATRIC: No agitation Objective Data Vital Signs Vital Signs: Vital Signs - 24 hr 06/09/23 12:00 06/09/23 14:26 06/09/23 14:35 Temperature 37.1 C Pulse Rate 78 104 H 102 H Respiratory Rate 28 H 27 H 27 H Blood Pressure 121/61 Pulse Oximetry 96 Oxygen Delivery Oxygen Flow Rate 06/09/23 12:31 06/09/23 16:00 06/09/23 12:00 Temperature 36.5 C Pulse Rate 102 H 99 Respiratory Rate 30 H Blood Pressure 121/61 121/82 Pulse Oximetry 91 95 Oxygen Delivery High Flow Nasal Cannula Oxygen Flow Rate 7 06/09/23 12:00 06/09/23 14:00 06/09/23 16:00 Temperature Pulse Rate 102 H 109 H Respiratory Rate Blood Pressure Pulse Oximetry 94 Oxygen Delivery High Flow Nasal Cannula Oxygen Flow Rate 7 06/09/23 18:00 06/09/23 16:00 06/09/23 20:00 Temperature 36.1 C L Pulse Rate 106 H 99 99 Respiratory Rate 24 H Blood Pressure 103/53 L Pulse Oximetry 94 Oxygen Delivery Oxygen Flow Rate 06/09/23 19:45 06/09/23 20:05 06/09/23 20:53 Temperature Pulse Rate 99 94 Respiratory Rate 24 H 24 H Blood Pressure Pulse Oximetry 93 Oxygen Delivery High Flow Nasal Cannula Oxygen Flow Rate 7 06/09/23 20:00 06/09/23 20:00 06/09/23 22:00 Temperature Pulse Rate 99 98 94 Respiratory Rate 24 H Blood Pressure Pulse Oximetry 94 Oxygen Delivery High Flow Nasal Cannula Oxygen Flow Rate 7 06/10/23 00:00 06/10/23 00:00 06/10/23 00:00 Temperature 36.2 C L Pulse Rate 77 77 92 Respiratory Rate 20 20 Blood Pressure 106/56 L Pulse Oximetry 96 96 Oxygen Delivery High Flow Nasal Cannula Oxygen Flow Rate 7 06/10/23 02:00 06/10/23 03:00 06/10/23 03:12 Temperature Pulse Rate 90 83 89 Respiratory Rate 20 20 Blood Pressure Pulse Oximetry Oxygen Delivery Oxygen Flow Rate 06/10/23 04:00 06/09/23 20:00 06/09/23 22:00 Temperature 36.6 C Pulse Rate 97 99 94 Respiratory Rate 22 H Blood Pressure 125/57 L 1
--- NOTE | 2023-06-10 11:19 | PM.PNPUL ---
Progress Note: A&P Assessment and Plan (1) Influenza A: Code(s): J10.1 - Influenza due to other identified influenza virus with other respiratory manifestations Status: Acute Assessment and Plan: Patient tested positive for influenza a on 06/07/2023 and now has worsening hypoxemic respiratory failure. 06/09/23: Plan: Patient received one dose of Tamiflu on 06/07 and 06/08. Her dose this morning was held for concerns of aspiration. Tamiflu is the one medicine that has been showed to be beneficial in influenza infection and recommend continuing this oral medicine if she passes her barium swallow. If she does not pass her barium swallow an NG tube should be placed so that she can receive this medicine at 30 mg per tube b.i.d. now that her creatinine clearance has improved. If creatinine clearance improves to greater than 50 will provide her with full dose at 75 mg q.12 hours. On 7 L NC oxygen with ABG 7.46//. Later in the day the patient had a CT scan of the chest showing lingula, and bilateral lower lobe consolidations left greater than right with no ground-glass infiltrates or evidence of ARDS. Small bilateral effusions. Swallow study was within functional limits for a level 5 minced and moist diet with regular liquids. 06/10/23: Patient was sleeping this morning on 4 L NC with saturations 92%. Woke up but appears fatigued. States she is breathing a little better. Cough but unable to expectorate. Vest treatment being given. Afebrile, WBC 10.0, Cr 0.9. CXR with bibasilar infiltrates and small effusions left greater than right. Plan: Continue Tamiflu 30 PO BID, day 4 (although missed two doses with dosing and swallowing issues). Oxygenation improved. Continue Dornase, guafenisin 1200 BID, duoneb Q 6 , vest and PEP treatment to aid in expectoration. Will follow with you. (2) Respiratory failure with hypoxia: Code(s): J96.91 - Respiratory failure, unspecified with hypoxia Status: Acute Assessment and Plan: Patient tested positive for influenza a on 06/07/2023 and now has worsening hypoxemic respiratory failure. She has a known EF of 30-35% in 2019 and currently 4.7 L positive since admission, new left pleural effusion with perihilar edema on her chest x-ray, and a BNP that has increased from 1350 to 59738. There were concerns about patient aspirating this morning at the bedside speech therapy recommends a barium swallow which has been ordered. She is NPO. Etiology of worsening hypoxic respiratory failure includes progressive influenza a, fluid overload, aspiration, ARDS from influenza or Klebsiella UTI, and bacterial super infection. Plan: I will order an ABG to assess for hypercarbic respiratory failure. ABG 7. on 7 L (no hypercarbic respiratory failure. Regarding influenza infection, see above. Regarding the possibility of fluid overload, I have ordered repeat echocardiogram to assess her LV function. Patient is given 40 of Lasix IV. Recommend as aggressive diuresis as tolerated by her cardiac and renal systems. Regarding the possibility fluid overload, ARDS and bacterial superinfection I will order CT scan of the chest without contrast. Regarding her Klebsiella UTI and possible bacterial super infection, I have spoken with the Infectious Disease pharmacist and at this time will continue meropenem, doxycycline and give 1 dose of vancomycin. Her sputum has grown out Staph aureus identification pending. We will send the nasal swab for MRSA RT PCR. Patient is listed as DNR. Discussed with Dr. Rene, will follow with you. 06/11/23: Stable, oxygenation improved. CT with consolidations and would continue treatment for pneumonia. Sputum with CHEPE and MRSA swab is negative. Weight today 74.2 With admission weight 74.5 on lasix 40 IV Q day. Cumulative plus 5.7 liters since admission. IV dilt being changed to PO. Plan: Continue meropenem, day 4. Continue doxycycline , day 4. Can DC vancomycin.
[2023-06-10] MEDS: FERROUS SULFATE 325 MG TABLET DR PO (15:04)
[2023-06-10] MEDS: dilTIAZem HCL 30 MG TABLET PO ×2 (15:05→18:29)
[2023-06-10] MEDS: APIXABAN 5 MG TABLET PO ×2 (15:05→20:49)
[2023-06-10] MEDS: DONEPEZIL HCL 10 MG TABLET PO (20:49)
[2023-06-10] MEDS: MELATONIN 3 MG TABLET PO (20:50)
[2023-06-11] VITALS (26 sets, daily range): BP systolic 94–134; BP diastolic 46–57; PULSE 82–102; RESP 18–24; TEMP 36.1–36.8; O2SAT 92–97
[2023-06-11] MEDS: dilTIAZem HCL 30 MG TABLET PO ×5 (00:03→23:37)
[2023-06-11] MEDS: MEROPENEM 1 GM/NS 100 ML 1 GM/100 ML BAG IVPB ×2 (00:03→13:23)
[2023-06-11] MEDS: IPRATROPIUM 0.5 MG/ALBUTEROL SULFATE 2.5 MG AMPUL.NEB 3 ML INHALATION ×4 (03:30→20:05)
--- NOTE | 2023-06-11 04:03 | PC.NURSE ---
06/10/231954- Per previous shift RN, the cardizem gtt has been discontinued by and changed to PO cardizem. When assessing patient, no cardizem gtt running. Medication has not been discontinued in the JUL. Verified with MAR that the patient is now taking PO cardizem 30mg PO Q6 hours.
[2023-06-11 05:14] LABS: Basophils Absolute Auto 0.1 K/mm3 (0.0-0.1); Basophils Percent Auto 0.6 % (0.2-1.2); Eosinophils Absolute Auto 0.1 K/mm3 (0-0.3); Eosinophils Percent Auto 0.8 % (0-4.4); Hematocrit 25.3 % (37.0-47.0); Hemoglobin 8.2 g/dL (12.0-15.0); Immature Granulocyte Percent A 1.9 % (0-0.5); Lymphocytes Absolute Auto 1.25 K/mm3 (0.9-3.2); Lymphocytes Percent Auto 11.6 % (18.3-44.2); Mean Corpuscular HGB Conc 32.4 g/dl (32-36); Mean Corpuscular Hemoglobin 32.8 pg (26-34); Mean Corpuscular Volume 101.2 fl (80-100); Mean Platelet Volume 10.6 fl (7.4-10.4); Monocytes Absolute Auto 0.7 K/mm3 (0.1-0.6); Monocytes Percent Auto 6.8 % (2.6-8.5); Neutrophils Absolute Auto 8.4 K/mm3 (1.3-6.7); Neutrophils Percent Auto 78.3 % (45.5-73.1); Nucleated Red Blood Cells Perc 0.3 % (0.0-0.2); Platelet Count Result 357 k/mm3 (150-375); Red Cell Distribution Width 14.5 % (11.5-14.5); White Blood Count 10.8 K/mm3 (4.5-10.0)
[2023-06-11 05:34] LABS: Alanine Aminotransferase 42 U/L (6-35); Albumin Level 2.9 g/dL (3.5-5.1); Alkaline Phosphatase 179 U/L (38-126); Anion Gap 7 mmol/L (8-16); Aspartate Amino Transferase 85 U/L (14-36); Bilirubin,Total 3.7 mg/dL (0.2-1.3); Blood Urea Nitrogen 21 mg/dL (7-17); Calcium 8.7 mg/dL (8.4-10.2); Carbon Dioxide 24 mmol/L (22-30); Chloride 106 mmol/L (98-107); Estimated CRCL calculation 39 ml/min; Estimated Glomerular Filt Rate 60; Glucose 99 mg/dL (65-110); Magnesium 2.4 mg/dL (1.6-2.3); Phosphorus 3.9 mg/dL (2.5-4.5); Potassium 3.9 mmol/L (3.4-5.0); Sodium 137 mmol/L (137-145)
[2023-06-11 06:53] LABS: Legionella pneumophila Ag Ur Not Detected (Not Detected)
--- NOTE | 2023-06-11 07:41 | PM.PNPUL ---
Progress Note: A&P Assessment and Plan (1) Influenza A: Code(s): J10.1 - Influenza due to other identified influenza virus with other respiratory manifestations Status: Acute Assessment and Plan: Patient tested positive for influenza a on 06/07/2023 and now has worsening hypoxemic respiratory failure. 06/09/23: Plan: Patient received one dose of Tamiflu on 06/07 and 06/08. Her dose this morning was held for concerns of aspiration. Tamiflu is the one medicine that has been showed to be beneficial in influenza infection and recommend continuing this oral medicine if she passes her barium swallow. If she does not pass her barium swallow an NG tube should be placed so that she can receive this medicine at 30 mg per tube b.i.d. now that her creatinine clearance has improved. If creatinine clearance improves to greater than 50 will provide her with full dose at 75 mg q.12 hours. On 7 L NC oxygen with ABG 7.46//. Later in the day the patient had a CT scan of the chest showing lingula, and bilateral lower lobe consolidations left greater than right with no ground-glass infiltrates or evidence of ARDS. Small bilateral effusions. Swallow study was within functional limits for a level 5 minced and moist diet with regular liquids. 06/10/23: Patient was sleeping this morning on 4 L NC with saturations 92%. Woke up but appears fatigued. States she is breathing a little better. Cough but unable to expectorate. Vest treatment being given. Afebrile, WBC 10.0, Cr 0.9. CXR with bibasilar infiltrates and small effusions left greater than right. Plan: Continue Tamiflu 30 PO BID, day 4 (although missed two doses with dosing and swallowing issues). Oxygenation improved. Continue Dornase, guafenisin 1200 BID, duoneb Q 6 , vest and PEP treatment to aid in expectoration. 06/11/2023: Patient states she is feeling a little better little better. She is very weak and has a poor cough and is still unable to expectorate her sputum. She is afebrile. Plan: Continue Tamiflu 300 p.o. b.i.d., day 5 although she had incomplete treatment due to dosing and swallowing issues. Oxygenation continues to improve and would wean for goal saturation 90-94%. She was out of bed yesterday and would continue this. Will discontinue dornase as she has had 48 hours. Continue guafenisin 1200 BID, duoneb Q 6 , vest and PEP treatment to aid in expectoration. Will follow with you. (2) Respiratory failure with hypoxia: Code(s): J96.91 - Respiratory failure, unspecified with hypoxia Status: Acute Assessment and Plan: Patient tested positive for influenza a on 06/07/2023 and now has worsening hypoxemic respiratory failure. She has a known EF of 30-35% in 2019 and currently 4.7 L positive since admission, new left pleural effusion with perihilar edema on her chest x-ray, and a BNP that has increased from 1350 to 35583. There were concerns about patient aspirating this morning at the bedside speech therapy recommends a barium swallow which has been ordered. She is NPO. Etiology of worsening hypoxic respiratory failure includes progressive influenza a, fluid overload, aspiration, ARDS from influenza or Klebsiella UTI, and bacterial super infection. Plan: I will order an ABG to assess for hypercarbic respiratory failure. ABG 7.46 on 7 L (no hypercarbic respiratory failure. Regarding influenza infection, see above. Regarding the possibility of fluid overload, I have ordered repeat echocardiogram to assess her LV function. Patient is given 40 of Lasix IV. Recommend as aggressive diuresis as tolerated by her cardiac and renal systems. Regarding the possibility fluid overload, ARDS and bacterial superinfection I will order CT scan of the chest without contrast. Regarding her Klebsiella UTI and possible bacterial super infection, I have spoken with the Infectious Disease pharmacist and at this time will continue meropenem, doxycycline and give 1 dos
[2023-06-11 09:08] LABS: Ammonia < 9 umol/L (9-30)
[2023-06-11 09:09] LABS: Bilirubin Indirect 1.1 mg/dL (0-1.1); Lipase 373 U/L (23-300)
[2023-06-11 09:21] LABS: Iron 33 ug/dL (37-170)
[2023-06-11] MEDS: FLUTICASONE PROPIONATE 0.05% NA SPR 16 GM BTL (*BKC) 2 SPRAY NASAL (09:35)
[2023-06-11] MEDS: lamoTRIgine 100 MG TABLET PO (09:35)
[2023-06-11] MEDS: DULoxetine HCL 60 MG CAPSULE.DR PO (09:35)
[2023-06-11] MEDS: guaiFENesin 12 HR 600 MG TABCR 1200 MG PO ×2 (09:36→20:29)
[2023-06-11] MEDS: OSELTAMIVIR PHOSPHATE 30 MG CAPSULE PO ×2 (09:36→20:30)
[2023-06-11] MEDS: MIRABEGRON 25 MG ER TABLET PO (09:36)
[2023-06-11] MEDS: LORATADINE 10 MG TABLET PO (09:36)
[2023-06-11] MEDS: CYANOCOBALAMIN 1,000 MCG TABLET 1000 MCG PO (09:36)
[2023-06-11] MEDS: MAGNESIUM OXIDE 400 MG TABLET PO (09:36)
[2023-06-11] MEDS: levETIRAcetam 250 MG TABLET PO ×2 (09:36→20:29)
[2023-06-11] MEDS: POTASSIUM CHLORIDE 20 MEQ ER TABLET PO ×2 (09:37→17:15)
[2023-06-11] MEDS: DOXYCYCLINE HYCLATE 100 MG TABLET PO ×2 (09:37→20:29)
[2023-06-11] MEDS: PANTOPRAZOLE SOD SESQUIHYDRATE 20 MG TAB PO (09:37)
[2023-06-11] MEDS: ASPIRIN 81 MG ENTERIC TABLET PO (09:37)
[2023-06-11] MEDS: APIXABAN 5 MG TABLET PO ×2 (09:37→20:29)
[2023-06-11 09:38] LABS: Percent Iron Saturation 22 % (20-50)
[2023-06-11] MEDS: SENNA/DOCUSATE SODIUM TABLET 1 TAB PO (09:38)
[2023-06-11] MEDS: FAMOTIDINE 20 MG TABLET PO ×2 (09:38→20:29)
[2023-06-11] MEDS: FUROSEMIDE INJ 40 MG/4 ML VIAL IV PUSH (09:38)
[2023-06-11 09:53] LABS: Hepatitis B Surface Antigen Negative (Negative)
[2023-06-11 09:59] LABS: HAV RESULT Negative (Negative); Hepatitis B Core IgM Result Negative (Negative)
[2023-06-11 10:00] LABS: Thyroid Stimulating Hormone Reflex 0.669 uIU/mL (0.465-4.68)
[2023-06-11 10:11] LABS: Hepatitis C Virus Antibody Negative (Negative)
[2023-06-11] MEDS: LORazepam (*CRX) 0.5 MG TABLET PO (10:15)
--- NOTE | 2023-06-11 10:54 | PM.PNCARD ---
Progress Note: A&P Assessment and Plan (1) Atrial fibrillation with rapid ventricular response: Code(s): I48.91 - Unspecified atrial fibrillation Status: Acute Assessment and Plan: Patient admitted with AFib with RVR, rate initially controlled with IV diltiazem, later switched to p.o. short-acting diltiazem. Atrial fibrillation paroxysmal versus persistent. Currently in sinus rhythm. -continue short-acting diltiazem for now, may switch to long-acting at the time of discharge. May add metoprolol if necessary for rate control if blood pressure allows. Outpatient medications show anticoagulation with rivaroxaban. Patient presented with fall. She will need to be assessed for gait stability before continuation of chronic anticoagulation. Plan discussed with Dr Davis. -echo showed LVEF 50%. -telemetry monitoring -patient is DNR (2) Fall: Code(s): W19.XXXA - Unspecified fall, initial encounter Status: Acute Assessment and Plan: PT OT evaluation (3) Influenza A: Code(s): J10.1 - Influenza due to other identified influenza virus with other respiratory manifestations Status: Acute Assessment and Plan: Management as per primary team. Patient on oseltamivir (4) Mild aortic stenosis: Code(s): I35.0 - Nonrheumatic aortic (valve) stenosis Status: Acute Assessment and Plan: Outpatient clinical and echo surveillance. Subjective Date/time seen: 06/11/23 10:54 Interval history: Date of service: 06/10/2023 Interval history: Patient is lying down in the bed, somewhat somnolent. Denies ongoing chest pain or shortness of breath. On telemetry, she is in atrial fibrillation with relatively controlled ventricular response. He has been on IV diltiazem. Date of service 06/11/2023: Patient reports cough with scanty expectoration. No chest pain. Mild shortness of breath. Currently in sinus rhythm on telemetry. Exam Narrative: PHYSICAL EXAMINATION: GENERAL: Elderly female, sitting up in the bed MENTAL STATUS: Anxious EYES: Extraocular movements intact, no pallor EARS: External ears appear normal, hearing grossly normal NOSE: Normal and patent, no discharge MOUTH: Mucous membranes moist, tongue normal NECK: Supple, no JVD CHEST: Coarse breath sounds HEART: Normal rate, regular rhythm at present ABDOMEN: Soft, nontender NEUROLOGICAL: Alert, speech coherent MUSCULOSKELETAL: no amputation EXTREMITIES: Trace pedal edema, no clubbing, no cyanosis SKIN: no rash on the exposed area, no cyanosis PSYCHIATRIC: No agitation Objective Data Vital Signs Vital Signs: Vital Signs - 24 hr 06/10/23 12:00 06/10/23 13:43 06/10/23 13:58 Temperature 36.9 C Pulse Rate 81 104 H 111 H Respiratory Rate 24 H 24 H 24 H Blood Pressure 115/60 Pulse Oximetry 93 Oxygen Delivery Oxygen Flow Rate 06/10/23 16:00 06/10/23 12:00 06/10/23 16:00 Temperature 36.8 C Pulse Rate 75 Respiratory Rate 24 H Blood Pressure 113/62 Pulse Oximetry 98 98 98 Oxygen Delivery High Flow Nasal Cannula High Flow Nasal Cannula Oxygen Flow Rate 5 5 06/10/23 14:00 06/10/23 18:00 06/10/23 12:00 Temperature Pulse Rate 111 H 102 H 103 H Respiratory Rate Blood Pressure Pulse Oximetry Oxygen Delivery Oxygen Flow Rate 06/10/23 16:00 06/10/23 20:00 06/10/23 20:00 Temperature 36.1 C L Pulse Rate 108 H 90 90 Respiratory Rate 20 20 Blood Pressure 107/64 Pulse Oximetry 98 98 Oxygen Delivery High Flow Nasal Cannula Oxygen Flow Rate 5 06/10/23 20:40 06/10/23 20:40 06/10/23 21:22 Temperature Pulse Rate 105 H 91 Respiratory Rate 24 H 22 H Blood Pressure Pulse Oximetry 96 Oxygen Delivery High Flow Nasal Cannula Oxygen Flow Rate 3 06/10/23 20:00 06/10/23 22:00 06/11/23 00:00 Temperature 36.4 C L Pulse Rate 101 H 94 86 Respiratory Rate 20 Blood Pressure 101/46 L Pulse Oximetry 97
[2023-06-11] MEDS: FERROUS SULFATE 325 MG TABLET DR PO (13:23)
--- NOTE | 2023-06-11 14:06 | PM.IMPN ---
Progress Note: A&P Assessment and Plan (1) Sepsis: Code(s): A41.9 - Sepsis, unspecified organism Status: Acute Assessment and Plan: Patient with sepsis present on admission with tachycardia, fever, tachypnea, respiratory failure and leukocytosis due to influenza A, UTI and pneumonia. Lactic acid level was normal. Procalcitonin level was 1.2. Her creatinine is improving from 1.3 and now is normal Heart rate better controlled. White count has trended downward. Urine culture growing Klebsiella Blood cultures no growth to date Sputum culture growing MSSA. Continue current IV abx (2) Respiratory failure with hypoxia: Code(s): J96.91 - Respiratory failure, unspecified with hypoxia Status: Acute Assessment and Plan: Patient developed acute respiratory failure with hypoxia. Patient normally on room air. Patient was on room air on admission but condition progressively worsened to respiratory failure with hypoxia. ABG 06/09 showing 7.46// on 7 L high-flow nasal cannula. [place] related to the influenza A and PNA. Consider also pulmonary edema. Continue bronchodilators. IV Lasix changed to oral. Was on IV diltiazem but changed to oral now with stable HR. Continue diltiazem to control heart rate. Weaned to room air Increase activity level as possible. Pulmonary consulted and appreciate their input (3) Pneumonia: Code(s): J18.9 - Pneumonia, unspecified organism Status: Acute Assessment and Plan: Chest x-ray admission shows bilateral pulmonary infiltrates and or atelectasis left greater than right. CT of the chest without contrast showed lobar consolidation LLL and partial consolidation of the lingula and right lower lobe. She also has small-moderate left pleural effusions and minimal right pleural effusion. Suspected superinfection from MSSA related to the current influenza infection Blood cultures are no growth to date. Sputum cultures growing MSSA. White count better Continue IV antibiotics. (4) Influenza A: Code(s): J10.1 - Influenza due to other identified influenza virus with other respiratory manifestations Status: Acute Assessment and Plan: Patient tested positive for influenza A on admission. Tamiflu started. Able to be weaned to RA today. (5) Urinary tract infection: Code(s): N39.0 - Urinary tract infection, site not specified Status: Acute Assessment and Plan: UA is consistent with UTI. UCx collected. Abx started. UCx growing Klebsiella that was kirk-sensitive. Continue abx (6) Paroxysmal atrial fibrillation: Code(s): I48.0 - Paroxysmal atrial fibrillation Status: Chronic Assessment and Plan: Patient with pAFib. Patient with AFib/RVR here felt related to above Started on IV Diltiazem to control HR Swallowing okay so changed to oral diltiazem. Appreciate Cardiology input. Continue Eliquis (7) Unwitnessed fall: Code(s): R29.6 - Repeated falls Status: Acute Assessment and Plan: Patient had an unwitnessed fall that prompted this admission. [place] related to Influenza A and developing bacterial PNA. 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 Cervical spine CT showing no fracture Left Hip xray showing no fracture Right hand xray showing no acute fracture. No point tenderness on exam PT/OT ordered (8) Dementia: Qualifiers: Dementia type: unspecified type Dementia behavioral disturbance: without behavioral disturbance Qualified Code(s): F03.90 - Unspecified dementia without behavioral disturbance Code(s): F03.90 - Unspecified dementia, unspecified severity, without behavioral disturbance, psychotic disturbance, mood disturbance, and anxiety Status: Chronic Assessment and Plan: Stable. Increase activity Some concern for aspiration MBS showing she can swallow safely with level 5 diet (9) Essential hypertension: Code(s):
--- NOTE | 2023-06-11 20:03 | PC.NURSE ---
Per Dr. Duarte the pt was noted without O2. This RN gave report that the pt has been without O2 since earlier in the day et SPO O2 have been fine. Per Dr. Duarte maintain SPO2 92% at or above92%. RT was given report on Dr Duarte concerns et that SPO2 should be maintained above 92%. While at the pts beside the pts SPO2 was 89-90% et O2 applied at 1L. The pt denied distress during event. Report given to RT to maintain SPO2 above 92% et the pt was down to 89- 90% so O2 was applied. O2 turned on et applied to the pt per this RN
[2023-06-11] MEDS: MELATONIN 3 MG TABLET PO (20:29)
[2023-06-11] MEDS: DONEPEZIL HCL 10 MG TABLET PO (20:29)
[2023-06-12] VITALS (24 sets, daily range): BP systolic 100–127; BP diastolic 39–67; PULSE 80–110; RESP 16–22; TEMP 36.2–36.8; O2SAT 91–97
[2023-06-12] MEDS: MEROPENEM 1 GM/NS 100 ML 1 GM/100 ML BAG IVPB ×2 (00:22→12:21)
[2023-06-12] MEDS: IPRATROPIUM 0.5 MG/ALBUTEROL SULFATE 2.5 MG AMPUL.NEB 3 ML INHALATION ×4 (02:19→21:22)
[2023-06-12 04:41] LABS: Basophils Percent Auto 0.5 % (0.2-1.2); Eosinophils Absolute Auto 0.2 K/mm3 (0-0.3); Eosinophils Percent Auto 2.8 % (0-4.4); Hematocrit 22.6 % (37.0-47.0); Hemoglobin 7.5 g/dL (12.0-15.0); Immature Granulocyte Absolute 0.18 K/mm3 (0.00-0.031); Immature Granulocyte Percent A 2.1 % (0-0.5); Lymphocytes Absolute Auto 1.14 K/mm3 (0.9-3.2); Lymphocytes Percent Auto 13.2 % (18.3-44.2); Mean Corpuscular HGB Conc 33.2 g/dl (32-36); Mean Corpuscular Hemoglobin 33.3 pg (26-34); Mean Corpuscular Volume 100.4 fl (80-100); Mean Platelet Volume 10.7 fl (7.4-10.4); Monocytes Absolute Auto 0.6 K/mm3 (0.1-0.6); Monocytes Percent Auto 6.7 % (2.6-8.5); Neutrophils Absolute Auto 6.4 K/mm3 (1.3-6.7); Neutrophils Percent Auto 74.7 % (45.5-73.1); Nucleated Red Blood Cells Absolute Auto 0.1 K/mm3 (0.0-0.012); Nucleated Red Blood Cells Perc 0.6 % (0.0-0.2); Platelet Count Result 394 k/mm3 (150-375); Red Blood Count 2.25 M/mm3 (4.2-5.4); Red Cell Distribution Width 14.5 % (11.5-14.5); White Blood Count 8.6 K/mm3 (4.5-10.0)
[2023-06-12 04:50] LABS: Alanine Aminotransferase 84 U/L (6-35); Albumin Level 2.7 g/dL (3.5-5.1); Alkaline Phosphatase 255 U/L (38-126); Anion Gap 4 mmol/L (8-16); Aspartate Amino Transferase 215 U/L (14-36); Blood Urea Nitrogen 20 mg/dL (7-17); Calcium 8.5 mg/dL (8.4-10.2); Carbon Dioxide 26 mmol/L (22-30); Chloride 105 mmol/L (98-107); Estimated CRCL calculation 39 ml/min; Estimated Glomerular Filt Rate 60; Glucose 94 mg/dL (65-110); Potassium 3.7 mmol/L (3.4-5.0); Sodium 135 mmol/L (137-145)
[2023-06-12] MEDS: dilTIAZem HCL 30 MG TABLET PO ×3 (05:58→17:37)
[2023-06-12] MEDS: CYANOCOBALAMIN 1,000 MCG TABLET 1000 MCG PO (09:44)
[2023-06-12] MEDS: lamoTRIgine 100 MG TABLET PO (09:44)
[2023-06-12] MEDS: POTASSIUM CHLORIDE 20 MEQ ER TABLET PO ×2 (09:44→17:36)
[2023-06-12] MEDS: levETIRAcetam 250 MG TABLET PO ×2 (09:45→20:51)
[2023-06-12] MEDS: MIRABEGRON 25 MG ER TABLET PO (09:45)
[2023-06-12] MEDS: FUROSEMIDE 40 MG TABLET PO (09:45)
[2023-06-12] MEDS: LORATADINE 10 MG TABLET PO (09:45)
[2023-06-12] MEDS: guaiFENesin 12 HR 600 MG TABCR 1200 MG PO ×2 (09:45→20:50)
[2023-06-12] MEDS: PANTOPRAZOLE SOD SESQUIHYDRATE 20 MG TAB PO (09:45)
[2023-06-12] MEDS: DULoxetine HCL 60 MG CAPSULE.DR PO (09:45)
--- NOTE | 2023-06-12 09:45 | PM.PNPUL ---
Progress Note: A&P Assessment and Plan (1) Respiratory failure with hypoxia: Code(s): J96.91 - Respiratory failure, unspecified with hypoxia Status: Acute Assessment and Plan: An 82-year-old female patient with multiple health issues was hospitalized after an unobserved fall. She displayed bilateral lower lobe infiltrates, consolidation, and an air bronchogram in her left lower lobe, as well as a small pleural effusion on the left. She has been diagnosed with congestive heart failure linked to left ventricular diastolic dysfunction and atrial fibrillation. Presently, she is undergoing treatment with antibiotics for a urinary tract infection and taking Tamiflu due to a positive influenza test. Her respiratory failure is attributed to the bilateral lower lobe infiltrates, left lower lobe consolidation with bronchogram, and pleural effusion. The patient appears to be reacting positively to the antibiotic course, as her WBC has reverted to normal. A sputum culture revealed Staph aureus, sensitive to doxycycline. A video swallow study indicated laryngeal penetration, making aspiration pneumonia a high probability. On last testing she had abnormal liver function tests. Plan: We will proceed with supportive care for now. Given her numerous health conditions, the patient's prognosis remains uncertain. (2) Abnormal chest x-ray: Code(s): R93.89 - Abnormal findings on diagnostic imaging of other specified body structures Status: Acute (3) Influenza A: Code(s): J10.1 - Influenza due to other identified influenza virus with other respiratory manifestations Status: Acute (4) Unwitnessed fall: Code(s): R29.6 - Repeated falls Status: Acute (5) Urinary tract infection: Code(s): N39.0 - Urinary tract infection, site not specified Status: Acute (6) Atrial fibrillation with rapid ventricular response: Code(s): I48.91 - Unspecified atrial fibrillation Status: Acute (7) Congestive heart failure: Qualifiers: Heart failure chronicity: chronic Heart failure type: unspecified Qualified Code(s): I50.9 - Heart failure, unspecified Code(s): I50.9 - Heart failure, unspecified Status: Acute Subjective Date/time seen: 06/12/23 09:45 Interval history: This 82-year-old female has a history of dementia, seizures chronic a fever on anticoagulation congestive heart failure also anemia was admitted to the hospital after an unwitnessed fall. Patient has been diagnosed with influenza, bilateral pleural effusions left greater than right with associated atelectasis left lower lobe, sputum growing Staph currently on antibiotics. She has been on supplemental oxygen for hypoxemia. Patient offers no new complaints. She is lying in bed opening eyes to verbal commands. Only answering simple questions. She does not appear in respiratory distress. Review of Systems Review of Systems: All systems reviewed & are unremarkable except as noted in HPI and below (HPI and below) Exam Narrative: GENERAL APPEARANCE: Elderly female looking chronically ill, lying in bed with a right-side down, on supplemental oxygen opening eyes answering simple questions not respiratory distress SKIN: Inspection of the skin reveals no rashes, ulcerations or petechiae. HEENT: Extraocular movements were intact and pupils were equal. Dry oral mucosa. NECK: Supple.and no tenderness, or masses were felt. LUNGS: Decreased breath sounds at bases posteriorly, left greater than right. Crackles at bases as well CARDIAC: There was an irregular rate and rhythm without any murmurs ABDOMEN: Soft and nontender with normal bowel sounds. There was no organomegaly. EXTREMITIES: No cyanosis, clubbing or edema. NEUROLOGIC: Appears drowsy opening eyes to verbal commands and answering simple questions. Moving all extremities Objective Data Vital Signs Vital Signs: Vital Signs - 24 hr 06/11/23 09:50
[2023-06-12] MEDS: FLUTICASONE PROPIONATE 0.05% NA SPR 16 GM BTL (*BKC) 2 SPRAY NASAL (09:46)
[2023-06-12] MEDS: DOXYCYCLINE HYCLATE 100 MG TABLET PO (09:46)
[2023-06-12] MEDS: SENNA/DOCUSATE SODIUM TABLET 1 TAB PO (09:46)
[2023-06-12] MEDS: MAGNESIUM OXIDE 400 MG TABLET PO (09:46)
[2023-06-12] MEDS: OSELTAMIVIR PHOSPHATE 30 MG CAPSULE PO ×2 (09:47→20:55)
[2023-06-12] MEDS: ASPIRIN 81 MG ENTERIC TABLET PO (09:47)
[2023-06-12] MEDS: FAMOTIDINE 20 MG TABLET PO ×2 (09:47→20:50)
[2023-06-12] MEDS: APIXABAN 5 MG TABLET PO ×2 (09:47→20:51)
--- NOTE | 2023-06-12 10:54 | PCNFU ---
Nutrition Follow-Up Complete: At risk for inadequate oral intake related to dementia, acute illness as evidenced by medical dx Goal:Adequate PO intake at least 75% meals and supplements Pt progressing towards goal Pt current nutrition is Minced and moist level 5, heart healthy, Ensure compact BID. Nutrition recommendation: continue with current plan of care Last recorded weight is 78.1 kg. Bowel Motility: +BM 2/4 Labs Reviewed: Hgb:7.5, HCT:22.6, Alb:2.7, NA:135 Meds Noted: eliquis, lasix, KCL Skin: no pressure injuries Additional Notes: Pt diet changed to minced and moist level 5, intake 50% at this time. Ensure compact BID in place. Encourage good po intake of meals and supplements. Monitor intakes, weights, labs, supplement tolerance, plan of care Follow up in 5 days
[2023-06-12] MEDS: FERROUS SULFATE 325 MG TABLET DR PO (12:21)
--- NOTE | 2023-06-12 18:40 | PM.IMPN ---
Progress Note: A&P Assessment and Plan (1) Sepsis: Code(s): A41.9 - Sepsis, unspecified organism Status: Acute Assessment and Plan: Patient with sepsis present on admission with tachycardia, fever, tachypnea, respiratory failure and leukocytosis due to influenza A, UTI and pneumonia. Lactic acid level was normal. Procalcitonin level was 1.2. Her creatinine is improving from 1.3 and now is normal Heart rate better controlled. White count has trended downward. Urine culture growing Klebsiella Blood cultures no growth to date Sputum culture growing MSSA. Rocephin once on 06/06. Azithro on 06/07 and 06/08. Doxy 06/07-06/12 Vanco once on 06/09. Meropenem 06/07-06/12 Will change to oral abx through tomorrow to complete 7 days. (2) Respiratory failure with hypoxia: Code(s): J96.91 - Respiratory failure, unspecified with hypoxia Status: Acute Assessment and Plan: Patient developed acute respiratory failure with hypoxia. Patient normally on room air. Patient was on room air on admission but condition progressively worsened to respiratory failure with hypoxia. ABG 06/09 showing 7.46// on 7 L high-flow nasal cannula. [place] related to the influenza A and PNA. Consider also pulmonary edema. Continue bronchodilators. IV Lasix changed to oral. One episode of hemoptysis. Suspect small upper airway bleed or occult epistaxis. Doubt PE since on Eliquis Weaned to room air most of the time Pulmonary consulted and appreciate their input (3) Pneumonia: Code(s): J18.9 - Pneumonia, unspecified organism Status: Acute Assessment and Plan: Chest x-ray admission shows bilateral pulmonary infiltrates and or atelectasis left greater than right. CT of the chest without contrast showed lobar consolidation LLL and partial consolidation of the lingula and right lower lobe. She also has small-moderate left pleural effusions and minimal right pleural effusion. Suspected superinfection from MSSA related to the current influenza infection Blood cultures are no growth to date. Sputum cultures growing MSSA. White count normal change to oral abx (4) Influenza A: Code(s): J10.1 - Influenza due to other identified influenza virus with other respiratory manifestations Status: Acute Assessment and Plan: Patient tested positive for influenza A on admission. Tamiflu started. Continue supportive care (5) Urinary tract infection: Code(s): N39.0 - Urinary tract infection, site not specified Status: Acute Assessment and Plan: UA is consistent with UTI. UCx collected. Abx started. UCx growing Klebsiella that was kirk-sensitive. Continue abx (6) Paroxysmal atrial fibrillation: Code(s): I48.0 - Paroxysmal atrial fibrillation Status: Chronic Assessment and Plan: Patient with pAFib. Patient with AFib/RVR here felt related to above Started on IV Diltiazem to control HR Swallowing okay so changed to oral diltiazem. Appreciate Cardiology input. Continue Eliquis (7) Unwitnessed fall: Code(s): R29.6 - Repeated falls Status: Acute Assessment and Plan: Patient had an unwitnessed fall that prompted this admission. [place] related to Influenza A and developing bacterial PNA. 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 Cervical spine CT showing no fracture Left Hip xray showing no fracture Right hand xray showing no acute fracture. No point tenderness on exam PT/OT ordered (8) Dementia: Qualifiers: Dementia type: unspecified type Dementia behavioral disturbance: without behavioral disturbance Qualified Code(s): F03.90 - Unspecified dementia without behavioral disturbance Code(s): F03.90 - Unspecified dementia, unspecified severity, without behavioral disturbance, psychotic disturbance, mood disturbance, and anxiety Status: Chronic Assessment and Plan: Stable. Increase activity Some concern for aspir
[2023-06-12] MEDS: AMOXICILLIN/CLAVULANATE K 875-125 MG TAB 1 TABLET PO (20:51)
[2023-06-12] MEDS: DONEPEZIL HCL 10 MG TABLET PO (20:54)
--- NOTE | 2023-06-12 22:07 | PC.NURSE ---
Left message for pt's son, Raymond, that pt moved to room 344. Provided nurses station phone number for any questions he may have.
--- NOTE | 2023-06-12 22:08 | PC.NURSE ---
This patient, Kenton Wilhelm, was transferred to [room 344 ] on 06/12/23 at 2155. Personal belongings sent with patient. Report given to [CATRINA Galo ]. Appropriate documentation sent with patient.
--- NOTE | 2023-06-12 22:13 | PC.NURSE ---
Pt's son, Raymond, called IMU. Updated to pt's room number and status.
--- NOTE | 2023-06-12 22:40 | PC.NURSE ---
This patient, Kenton Wilhelm, was received from [Cailin FRITZ ] on 06/12/23 at 2210. Patient/family oriented to unit policies and routines
[2023-06-13] VITALS (15 sets, daily range): BP systolic 104–132; BP diastolic 41–62; PULSE 76–99; RESP 16–18; TEMP 36.4–37.2; O2SAT 92–97
[2023-06-13] MEDS: dilTIAZem HCL 30 MG TABLET PO ×3 (00:01→12:09)
[2023-06-13 01:09] LABS: Pneumococcal Antigen Urine Not Detected (Not Detected)
[2023-06-13 06:02] LABS: Basophils Absolute Auto 0.1 K/mm3 (0.0-0.1); Basophils Percent Auto 0.6 % (0.2-1.2); Eosinophils Absolute Auto 0.3 K/mm3 (0-0.3); Eosinophils Percent Auto 3.9 % (0-4.4); Hematocrit 29.3 % (37.0-47.0); Hemoglobin 9.7 g/dL (12.0-15.0); Immature Granulocyte Absolute 0.16 K/mm3 (0.00-0.031); Lymphocytes Absolute Auto 1.21 K/mm3 (0.9-3.2); Lymphocytes Percent Auto 15.1 % (18.3-44.2); Mean Corpuscular HGB Conc 33.1 g/dl (32-36); Mean Corpuscular Hemoglobin 33.4 pg (26-34); Mean Platelet Volume 10.6 fl (7.4-10.4); Monocytes Absolute Auto 0.5 K/mm3 (0.1-0.6); Monocytes Percent Auto 6.2 % (2.6-8.5); Neutrophils Absolute Auto 5.8 K/mm3 (1.3-6.7); Neutrophils Percent Auto 72.2 % (45.5-73.1); Nucleated Red Blood Cells Perc 0.5 % (0.0-0.2); Platelet Count Result 411 k/mm3 (150-375); Red Cell Distribution Width 14.6 % (11.5-14.5)
[2023-06-13 06:29] LABS: Alanine Aminotransferase 73 U/L (6-35); Albumin Level 2.7 g/dL (3.5-5.1); Alkaline Phosphatase 271 U/L (38-126); Anion Gap 7 mmol/L (8-16); Aspartate Amino Transferase 140 U/L (14-36); Bilirubin,Total 1.9 mg/dL (0.2-1.3); Blood Urea Nitrogen 18 mg/dL (7-17); Carbon Dioxide 22 mmol/L (22-30); Chloride 106 mmol/L (98-107); Estimated CRCL calculation 40 ml/min; Estimated Glomerular Filt Rate 60; Glucose 92 mg/dL (65-110); Magnesium 2.6 mg/dL (1.6-2.3); Potassium 4.3 mmol/L (3.4-5.0); Sodium 135 mmol/L (137-145)
[2023-06-13] MEDS: FUROSEMIDE 40 MG TABLET PO (09:19)
[2023-06-13] MEDS: LORATADINE 10 MG TABLET PO (09:19)
[2023-06-13] MEDS: ASPIRIN 81 MG ENTERIC TABLET PO (09:19)
[2023-06-13] MEDS: POTASSIUM CHLORIDE 20 MEQ ER TABLET PO (09:19)
[2023-06-13] MEDS: LORazepam (*CRX) 0.5 MG TABLET PO (09:19)
[2023-06-13] MEDS: guaiFENesin 12 HR 600 MG TABCR 1200 MG PO ×2 (09:19→20:48)
[2023-06-13] MEDS: APIXABAN 5 MG TABLET PO ×2 (09:19→20:47)
[2023-06-13] MEDS: MIRABEGRON 25 MG ER TABLET PO (09:19)
[2023-06-13] MEDS: SENNA/DOCUSATE SODIUM TABLET 1 TAB PO (09:19)
[2023-06-13] MEDS: lamoTRIgine 100 MG TABLET PO (09:19)
[2023-06-13] MEDS: CYANOCOBALAMIN 1,000 MCG TABLET 1000 MCG PO (09:19)
[2023-06-13] MEDS: AMOXICILLIN/CLAVULANATE K 875-125 MG TAB 1 TABLET PO ×2 (09:19→20:48)
[2023-06-13] MEDS: MAGNESIUM OXIDE 400 MG TABLET PO (09:21)
[2023-06-13] MEDS: OSELTAMIVIR PHOSPHATE 30 MG CAPSULE PO ×2 (09:21→20:48)
[2023-06-13] MEDS: DULoxetine HCL 60 MG CAPSULE.DR PO (09:21)
[2023-06-13] MEDS: FAMOTIDINE 20 MG TABLET PO ×2 (09:21→20:48)
[2023-06-13] MEDS: FLUTICASONE PROPIONATE 0.05% NA SPR 16 GM BTL (*BKC) 2 SPRAY NASAL (09:22)
[2023-06-13] MEDS: IPRATROPIUM 0.5 MG/ALBUTEROL SULFATE 2.5 MG AMPUL.NEB 3 ML INHALATION ×2 (10:04→15:00)
[2023-06-13] MEDS: levETIRAcetam 250 MG TABLET PO ×2 (12:09→20:47)
[2023-06-13] MEDS: PANTOPRAZOLE SOD SESQUIHYDRATE 20 MG TAB PO (12:09)
[2023-06-13] MEDS: FERROUS SULFATE 325 MG TABLET DR PO (12:09)
[2023-06-13 12:59] LABS: SARS-CoV-2 RNA PCR Negative (Negative)
--- NOTE | 2023-06-13 14:46 | PM.DS ---
DS: Admitting Diagnosis Discharge Date 06/13/23 Admitting Diagnosis Fall DS: Discharge Diagnosis Discharge Diagnosis (1) Sepsis: Code(s): A41.9 - Sepsis, unspecified organism Status: Acute (2) Respiratory failure with hypoxia: Code(s): J96.91 - Respiratory failure, unspecified with hypoxia Status: Acute (3) Pneumonia: Code(s): J18.9 - Pneumonia, unspecified organism Status: Acute (4) Influenza A: Code(s): J10.1 - Influenza due to other identified influenza virus with other respiratory manifestations Status: Acute (5) Urinary tract infection: Code(s): N39.0 - Urinary tract infection, site not specified Status: Acute (6) Paroxysmal atrial fibrillation: Code(s): I48.0 - Paroxysmal atrial fibrillation Status: Chronic (7) Unwitnessed fall: Code(s): R29.6 - Repeated falls Status: Acute (8) Dementia: Qualifiers: Dementia type: unspecified type Dementia behavioral disturbance: without behavioral disturbance Qualified Code(s): F03.90 - Unspecified dementia without behavioral disturbance Code(s): F03.90 - Unspecified dementia, unspecified severity, without behavioral disturbance, psychotic disturbance, mood disturbance, and anxiety Status: Chronic (9) Essential hypertension: Code(s): I10 - Essential (primary) hypertension Status: Chronic (10) Seizure disorder: Code(s): G40.909 - Epilepsy, unspecified, not intractable, without status epilepticus Status: Chronic DS: Summary Hospital Course Reason for hospitalization: 82yo female with dementia, seizures, pAFib on anticoagulation, CHF, and iron deficiency anemia who presented for evaluation after an unwitnessed fall.?Please see H&P for details. Hospital Course: Patient with sepsis present on admission with tachycardia, fever, tachypnea, respiratory failure and leukocytosis due to influenza A, UTI and pneumonia.? Lactic acid level was normal.? Procalcitonin level was 1.2. Her creatinine is improving from 1.3 and now is normal. Heart rate better controlled.? White count normalized. Urine culture grew Klebsiella. Blood cultures were negative. Sputum culture growing MSSA. Rocephin and Azithromycin started. Switched to Vancomycin but stopped once sensitivities returned. Meropenem started. Changed to oral antibiotics. Patient developed acute respiratory failure with hypoxia.? Patient normally on room air. Patient was on room air on admission but condition progressively worsened to respiratory failure with hypoxia. ABG 06/09 showing 7.46// on 7 L high-flow nasal cannula. [place] related to the influenza A and PNA.? Consider also pulmonary edema. She was treated with bronchodilators and IV Lasix. She had one episode of hemoptysis. Suspect small upper airway bleed or occult epistaxis. Doubt PE since on Eliquis She did well and was able to be weaned to room air. Pulmonary consulted and appreciate their input. Chest x-ray admission shows bilateral pulmonary infiltrates and or atelectasis left greater than right. CT of the chest without contrast showed lobar consolidation LLL and partial consolidation of the lingula and right lower lobe. She also has small-moderate left pleural effusions and minimal right pleural effusion. Suspected superinfection from MSSA related to the current influenza infection. Patient tested positive for influenza A on admission. She was treated with tamiflu. Patient with pAFib but developed AFib/RVR here felt related to above. She was started on IV Diltiazem to control HR. Swallowing okay so changed to oral diltiazem. Appreciate Cardiology input. We continued Eliquis. Patient had an unwitnessed fall that prompted this admission. [place] related to Influenza A and developing bacterial PNA. 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 Cervical spine CT showing no fracture. Left Hip xray showing no fracture. Right hand xray showing no acute fract
[2023-06-13] MEDS: MELATONIN 3 MG TABLET PO (20:47)
[2023-06-13] MEDS: DONEPEZIL HCL 10 MG TABLET PO (20:48)
== END 2023-06-13 21:45 | DRG 871 ==
LOC: ANHED 13:02 → ANHIMU 20:49 → ANH3MED 06-12 22:08
PROVIDERS: Internal Medicine Pulmonary Disease; Physician Assistant; Admitting Provider Family Medicine; Emergency Provider Emergency Medicine; PCP Hospitalist; Visit Provider Internal Medicine
DX: A41.89 Other specified sepsis (principal); J10.08 Influenza due to other identified influenza virus with other specified pneumonia; J15.211 Pneumonia due to Methicillin susceptible Staphylococcus aureus; J96.01 Acute respiratory failure with hypoxia; N39.0 Urinary tract infection, site not specified; R04.2 Hemoptysis; G30.9 Alzheimer's disease, unspecified; F02.80 Dementia in other diseases classified elsewhere, unspecified severity, without behavioral disturbance, psychotic disturbance, mood disturbance, and anxiety; I11.0 Hypertensive heart disease with heart failure; I50.9 Heart failure, unspecified; Z20.822 Contact with and (suspected) exposure to COVID-19; G40.909 Epilepsy, unspecified, not intractable, without status epilepticus; E86.0 Dehydration; F32.9 Major depressive disorder, single episode, unspecified; D50.8 Other iron deficiency anemias; F25.9 Schizoaffective disorder, unspecified; I48.0 Paroxysmal atrial fibrillation; M81.0 Age-related osteoporosis without current pathological fracture; K21.9 Gastro-esophageal reflux disease without esophagitis; E78.5 Hyperlipidemia, unspecified; R29.6 Repeated falls; D50.9 Iron deficiency anemia, unspecified; Z66 Do not resuscitate; Z90.710 Acquired absence of both cervix and uterus; Z96.642 Presence of left artificial hip joint; Z86.16 Personal history of COVID-19; Z86.73 Personal history of transient ischemic attack (TIA), and cerebral infarction without residual deficits; Z79.82 Long term (current) use of aspirin; Z79.01 Long term (current) use of anticoagulants; B96.1 Klebsiella pneumoniae [K. pneumoniae] as the cause of diseases classified elsewhere
CPT/HCPCS: 36415; 36600; 70450; 71045; 71250; 72125; 73120; 73502; 76705; 80048; 80053; 80074; 81001; 82140; 82248; 82550; 82607; 82728; 82746; 82805; 82948; 83540; 83550; 83605; 83690; 83735; 83880; 84100; 84145; 84443; 84484; 85025; 85610; 85730; 86140; 86738; 87040; 87070; 87086; 87186; 87205; 87449; 87635; 87637; 87641; 87899; 92610; 92611; 93005; 93306; 94640; 94667; 94669; 96365; 96367; 97110; 97161; 97165; 97530; 97535; 99285; A9270; J0456; J0696; J1940; J2185; J3370; J7030

== ENCOUNTER 2023-07-06 21:49 | Inpatient (IN) | payer MEDICARE, SELFPAY ==
--- NOTE | ~2023-07-06 | CT_ITS ---
EXAMINATION: CT abdomen pelvis w con INDICATION: Bilateral lower abdominal pain TECHNIQUE: Computed tomographic images of the abdomen and pelvis were obtained after the administrati on of 100 cc of Omnipaque 350 intravenous contrast. The dose-length product (DLP) was 845.79 mGy-cm. Automated exposure control and iterative reconstruction technique were employed. COMPARISON: 09/13/2022 FINDINGS: There are patchy airspace opacities of the lower lobes. There is a moderate-sized hiatal he rnia. The heart size is normal. Punctate calcifications in an otherwise normal spleen likely represen t healed granulomatous disease. The pancreas, liver, gallbladder, and right adrenal gland are normal. A stable 2.2 cm mass of the left adrenal gland likely represents an adenoma. Cysts of the kidneys me asure up to 1.8 cm on the left. No pathologically enlarged abdominal or pelvic lymph nodes are identi fied. A large volume of colonic stool is present. No free intraperitoneal gas or evidence of bowel ob struction. There are changes of total left hip arthroplasty. There is vertebroplasty change at an L1 burst fracture. There is a chronic L2 burst fracture. IMPRESSION: 1. Constipation. 2. Airspace opacities of the lung bases, consistent with pneumonia. Reviewed, dictated and finalized at location F. TRUCTION IRONWORKER
--- NOTE | ~2023-07-06 | XR_ITS ---
EXAMINATION: XR chest 1V portable INDICATION: Cough, altered mental status TECHNIQUE: Portable AP chest at 2301 hours COMPARISON: 06/10/2023 FINDINGS: There are minimal persistent airspace opacities of the left lung base. No pleural effusion or pneumothorax. The cardiomediastinal silhouette is normal. Vertebroplasty changes noted at L1. IMPRESSION: 1. Persistent but decreased left basilar airspace opacity, consistent with atelectasis versus pneumon ia. Reviewed, dictated and finalized at location F. ICS INSTRUCTOR IMPRESSION: 1. Persistent but decreased left basilar airspace opacity, consistent with atel ectasis versus pneumonia.
--- NOTE | ~2023-07-06 | CT_ITS ---
Noncontrast CT scan of the cervical spine Technique: Multiple contiguous axial [address] images of the cervical spine were obtained and rec onstructed in 2D sagittal and coronal planes on the acquisition scanner. Dose reduction technique was used on this scan by utilizing automated exposure control, adjustment of the mA and/or kV according to patient size. The dose-length product (DLP) was 315.39 mGy-cm. Clinical History: Pain Findings: No fractures or dislocations. There is moderate degenerative disc narrowing at C4-C5, C5-C 6, and C6-C7. There are scattered mild facet joint degenerative changes. No prevertebral soft tissue swelling. Impression: No fracture or subluxation of the cervical spine. Reviewed, dictated and finalized at [facility]. RATIONS SCIENTIST Impression: No fracture or subluxation of the cervical spine.
--- NOTE | ~2023-07-06 | XR_ITS ---
EXAMINATION: XR barium swallow modified DATE: 07/08/2023 12:59 INDICATION: Coughing with eating. TECHNIQUE: The patient was given barium-containing material of multiple consistencies to swallow by t tammy speech pathologist while I performed fluoroscopy. Fluoroscopy exposure time was 2.2 minutes. The n umber of fluoroscopy images saved to the PACS was 1. Dose-area product was 1.937 Gy-cm^2. FINDINGS: There was laryngeal penetration with uncontrolled thin liquids via cup 1 time. IMPRESSION: 1. One episode of laryngeal penetration. 2. Please refer to the speech therapy report for recommendations. Reviewed, dictated and finalized at location A. CTOR OF CASINO
--- NOTE | ~2023-07-06 | CT_ITS ---
CT head without contrast Indication: Status post fall COMPARISON: 06/06/2023 Technique: Serial scans were obtained through the brain without the administration of contrast. Dose reduction technique was used on this scan by utilizing automated exposure control and iterative recon struction technique. The dose-length product (DLP) was 681.00 mGy-cm. Findings: There is no evidence of intracranial hemorrhage, mass lesion, or acute infarct. The ventri cles and subarachnoid spaces are dilated, consistent with mild to moderate atrophy. Chronic left eduardo etal infarct noted. Low attenuation regions are seen within the periventricular white matter bilatera lly, likely representing changes from chronic microvascular ischemic disease. There is no evidence of edema, mass effect or midline shift. The visualized paranasal sinuses and mastoid air cells are cl ear. Impression: No intracranial hemorrhage, mass, or acute infarct. Chronic left parietal infarct. Atrophy and chronic white matter changes, as above. Reviewed, dictated and finalized at [facility]. ELECTRICAL TECHNICIAN Impression: No intracranial hemorrhage, mass, or acute infarct. Chronic left parietal infarct. Atrophy and chronic white matter changes, as above.
[2023-07-06 21:50] VITALS: BP 153/82; PULSE 71; RESP 24; TEMP 36.4; O2SAT 100
[2023-07-06 21:54] VITALS: BP 153/82; PULSE 97; RESP 23; O2SAT 96
[2023-07-06 22:01] VITALS: BP 146/75; PULSE 62; RESP 24; O2SAT 99
--- NOTE | 2023-07-06 22:08 | ECG_ITS ---
Measurements Intervals [place] Rate: 74 P: -18 WV: 153 QRS: 30 QRSD: 135 T: 73 QT: 436 QTc: 485 Interpretive Statements SINUS RHYTHM WITH SINUS ARRHYTHMIA LEFT BUNDLE BRANCH BLOCK BASELINE ARTIFACT- I, II, III, AVR, AVL, AVF, V1-V6 ABNORMAL ECG COMPARED TO ECG 06/06/2023 17:07:13 SINUS RHYTHM NOW PRESENT SINUS ARRHYTHMIA NOW PRESENT Electronically Signed On 07-07-2023 6:42:48 ORTHOPEDIC PHYSICIAN by Vladimir Sosa D.O.
[2023-07-06 22:16] VITALS: BP 171/145; PULSE 59; RESP 21; O2SAT 100
[2023-07-06] MEDS: SODIUM CHLORIDE 0.9% IV 1,000 ML 999 ML IV CONT (22:27)
[2023-07-06] MEDS: MORPHINE SULFATE (*CRX) 4 MG/ML INJ 2 MG IV PUSH (22:28)
[2023-07-06] MEDS: ONDANSETRON INJ 4 MG/2 ML VIAL IV PUSH (22:28)
[2023-07-06 22:32] VITALS: BP 134/73; PULSE 59; RESP 22; O2SAT 100
[2023-07-06 23:03] LABS: Basophils Absolute Auto 0.1 K/mm3 (0.0-0.1); Basophils Percent Auto 0.5 % (0.2-1.2); Eosinophils Absolute Auto 0.2 K/mm3 (0-0.3); Eosinophils Percent Auto 1.4 % (0-4.4); Hematocrit 36.3 % (37.0-47.0); Hemoglobin 11.8 g/dL (12.0-15.0); Immature Granulocyte Absolute 0.09 K/mm3 (0.00-0.031); Immature Granulocyte Percent A 0.7 % (0-0.5); Lymphocytes Absolute Auto 2.12 K/mm3 (0.9-3.2); Lymphocytes Percent Auto 16.3 % (18.3-44.2); Mean Corpuscular HGB Conc 32.5 g/dl (32-36); Mean Corpuscular Hemoglobin 33.1 pg (26-34); Mean Corpuscular Volume 101.7 fl (80-100); Mean Platelet Volume 9.5 fl (7.4-10.4); Monocytes Absolute Auto 0.5 K/mm3 (0.1-0.6); Monocytes Percent Auto 3.9 % (2.6-8.5); Neutrophils Percent Auto 77.2 % (45.5-73.1); Platelet Count Result 398 k/mm3 (150-375); Red Blood Count 3.57 M/mm3 (4.2-5.4); Red Cell Distribution Width 14.4 % (11.5-14.5)
[2023-07-06 23:14] LABS: INR 1.6; Prothrombin Time 19.8 Seconds (11.1-14.7)
[2023-07-06 23:18] LABS: Alanine Aminotransferase 16 U/L (6-35); Albumin Level 4.2 g/dL (3.5-5.1); Alkaline Phosphatase 135 U/L (38-126); Anion Gap 10 mmol/L (8-16); Aspartate Amino Transferase 29 U/L (14-36); Bilirubin,Total 0.9 mg/dL (0.2-1.3); Blood Urea Nitrogen 15 mg/dL (7-17); Calcium 10.4 mg/dL (8.4-10.2); Carbon Dioxide 24 mmol/L (22-30); Chloride 103 mmol/L (98-107); Estimated CRCL calculation 32 ml/min; Estimated Glomerular Filt Rate 47; Glucose 140 mg/dL (65-110); Lactic Acid Reflex 3.2 mmol/L (0.7-2.0); Lipase 600 U/L (23-300); Magnesium 2.1 mg/dL (1.6-2.3); Potassium 3.7 mmol/L (3.4-5.0); Sodium 137 mmol/L (137-145)
[2023-07-06 23:29] LABS: Troponin I < 0.012 ng/mL (0.000-0.034)
[2023-07-06 23:34] LABS: Procalcitonin 0.1 ng/mL
[2023-07-06 23:43] VITALS: PULSE 82; RESP 18; O2SAT 100
--- NOTE | 2023-07-06 23:50 | PC.NURSE ---
this rn assumed care of patient. this rn took patient report from CATRINA Paula.
[2023-07-07] VITALS (10 sets, daily range): BP systolic 100–168; BP diastolic 46–82; PULSE 76–84; RESP 13–23; TEMP 36.4–37.2; O2SAT 92–99; BMI 31.2
--- NOTE | 2023-07-07 00:17 | ED.GENADULT ---
HPI - General Adult General Chief complaint: Abdominal Pain Stated complaint: ABD PAIN, N/V Time Seen by Provider: 07/06/23 22:00 History of Present Illness HPI narrative: patient is a 82-year-old female who presents emergency department with chief complaint of abdominal pain cough. Per the nursing facility the patient skipped dinner this evening and has not been feeling well. The patient reports that she has generalized abdominal discomfort and reports that she has also been coughing and feeling nauseated. Related Data Home Medications Medication Instructions Recorded Confirmed aspirin 81 mg tablet,delayed 81 mg PO DAILY 03/20/19 06/06/23 release atorvastatin 10 mg tablet 10 mg PO DAILY 03/20/19 06/06/23 cholecalciferol (vitamin D3) 1,250 50,000 unit PO WEEKLY 03/20/19 06/06/23 mcg (50,000 unit) tablet cyanocobalamin (vitamin B-12) 1,000 mcg PO DAILY 03/20/19 06/06/23 1,000 mcg capsule donepezil 10 mg tablet 10 mg PO HS 03/20/19 06/06/23 polyethylene glycol 3350 17 17 g PO DAILY PRN Constipation 03/20/19 06/06/23 gram/dose oral powder (Miralax) duloxetine 60 mg capsule,delayed 60 mg PO DAILY 07/16/21 06/06/23 release famotidine 20 mg disintegrating 20 mg PO BID 07/16/21 06/06/23 tablet lamotrigine 100 mg tablet 100 mg PO DAILY 07/16/21 06/06/23 levetiracetam 250 mg tablet 250 mg PO BID 07/16/21 06/06/23 (Keppra) loratadine 10 mg tablet (Allergy 10 mg PO DAILY 07/16/21 06/06/23 Relief (loratadine)) melatonin 3 mg tablet 3 mg PO HS 07/16/21 06/06/23 pantoprazole 40 mg tablet,delayed 20 mg PO DAILY 07/16/21 06/06/23 release cranberry fruit 450 mg tablet 450 mg PO DAILY 04/05/22 06/06/23 (cranberry) fluticasone propionate 50 2 spray intranasal DAILY 04/05/22 06/06/23 mcg/actuation nasal spray,suspension (Allergy Relief (fluticasone)) mirabegron 25 mg tablet,extended 25 mg PO DAILY 04/05/22 06/06/23 release 24 hr (Myrbetriq) Marisol-Tussin 5 ml PO Q6H PRN Congestion 09/13/22 06/06/23 acetaminophen 325 mg tablet 650 mg PO Q4H PRN Pain (Scale 09/13/22 06/06/23 Score 1-3) lorazepam 0.5 mg tablet 0.5 mg PO DAILY 09/13/22 06/06/23 magnesium oxide 1 tablet PO DAILY 09/13/22 06/06/23 potassium chloride 20 mEq 20 meq PO BID 09/13/22 06/06/23 tablet,extended release(part/cryst) (Klor-Con M) sennosides 8.6 mg-docusate sodium 1 tab-cap PO DAILY 06/06/23 06/06/23 50 mg tablet (Senna Plus) Allergies Allergy/AdvReac Type Severity Reaction Status Date / Time sertraline Allergy Severe Unknown Verified 07/06/23 22:16 hydromorphone Allergy Intermediate Unknown Verified 07/06/23 22:16 Review of Systems Review of Systems: A 10 system review of systems was completed on the patient and is negative except for what is stated in the HPI. Nursing and ancillary documentation was reviewed. [facility] Past Medical History Medical History Alzheimers disease Anxiety Chronic anticoagulation Congestive heart failure Dementia Follows with neurologist, Dr. Galindo. 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 Osteoporosis Paroxysmal atrial fibrillation Pneumonia due to COVID-19 virus Schizoaffective disorder Seizure disorder Thoracic compression fracture T10 Vitamin D deficiency Surgical History Surgical History History of arthroscopy of left shoulder History of bladder suspension procedure History of hysterectomy History of total left hip arthroplasty (2015) Family History Family History Sibling Dementia Cerebrovascular accident Sibling Acute myocardial infarction Mother
[2023-07-07 00:43] LABS: Appearance Urine Clear (Clear); Bilirubin Urine Negative (Negative); Blood Urine Negative (Negative); Color Urine Yellow (Yellow); Glucose Urine UA Negative (Negative); Ketones Urine Negative (Negative); Leukocyte Esterase Ur Negative LEU/UL (Negative); Nitrate Urine Negative (Negative); Protein Urine Negative (Negative); Specific Grav Ur 1.022 (1.001-1.035); Urobilinogen Urine 0.2 mg/dL (<2.0)
[2023-07-07 00:44] LABS: Add Urine Microscopic? NO
[2023-07-07 02:01] LABS: Reflex Lactic Acid Yes or No Add Lactic
--- NOTE | 2023-07-07 03:30 | PC.NURSE ---
pt was found on the floor by staff member. pt found laying on her right side at 0305 on 07/07/23. pt was noted to not have any visible injuries at this time. pt has no complaints at this time. pt stated i was getting up to use my wheelchair . Pt is in no distress at this time. santino underwood, internal consultant, and edp dr. galo made aware. edp dr. galo ordered ct of head and c spine. pt was able to ambulate off the ground and onto commode, from commode into bed. this rn contacted esther lui at 0330 to make family aware of fall. pt was noted to be using call light independently several times prior to fall.
[2023-07-07 04:16] LABS: Influenza A QL RT-PCR Negative (Negative); Influenza B QL RT-PCR Negative (Negative); RSV RNA, RT-PCR Negative (Negative); SARS-CoV-2 RNA PCR Negative (Negative)
[2023-07-07] MEDS: DOCUSATE SODIUM 400 MG/400 ML ENEMA RECTAL (04:53)
--- NOTE | 2023-07-07 05:02 | PC.NURSE ---
pt received 300ml of colace liquid rectally. Pt tolerated fair. pt bowel movement small, hard and small pebble like.
[2023-07-07] MEDS: AZITHROMYCIN 500 MG/NS 250 ML 500 MG/250 ML BAG 250 MG IVPB (05:08)
--- NOTE | 2023-07-07 05:42 | ADMGEN ---
This patient, Kenton Wilhelm, was admitted to [address] [place] [address] Room 305-02. Patient/family oriented to hospital policies and general routines including ID bracelet, bed and alarms, visiting hours, pain management, procedures, bathroom and other care routines, personal items, smoking policy, room service/diet, and visiting hours. Information on how to activate the Rapid Response Team has been discussed. Patient/Family are encouraged to report perceived risks to care and to ask questions if they do not understand what they are told or what they should do.
[2023-07-07] MEDS: SODIUM CHLORIDE 0.9% IV 1,000 ML 125 ML IV CONT (06:03)
[2023-07-07] MEDS: ACETAMINOPHEN 325 MG TABLET 650 MG PO ×2 (06:12→20:28)
--- NOTE | 2023-07-07 16:57 | PM.IMHP ---
H&P: HPI History of Present Illness Date/Time: 07/07/23 1330 Chief Complaint: 82-year-old female who presented to the emergency department via EMS from [facility] facility with chief complaint of abdominal pain cough. Narrative: HPI: Patient is an 82-year-old female with dementia, seizures, proximal atrial fibrillation on anticoagulation congestive heart failure, hyperlipidemia, GERD disease as well as iron deficiency anemia presented to the emergency room with reports generalized weakness, ongoing abdominal pain and cough for the past 2 days. Unfortunately at this time patient is not a reliable historian the majority of information is obtained through chart review, staff and POA/ who is by the bedside. Patient currently lives at [facility], of note she has had multiple falls in the past, with a recent admission to this hospital on 06/06/2023 for unwitnessed fall. It was reported from the patient's facility, she did not feel well and skipped dinner last night, there was no mention of nausea vomiting fever chills. During assessment, patient reports generalized abdominal pain as well as frequent nonproductive cough, she denies any nausea vomiting. Patient denies any chest pain. ED workup reveals: Initial vital signs 97.6, pulse rate 81, BP 160/61 respirations 13, pulse oximetry 98% on RA -WBC 13.0, hgb 11.8, creatinine 1.10, elevated alk phosphatase 135, lipase mildly elevated at 600, UA is unremarkable no signs of infection, reflex criteria not met, viral PCR is negative, EKG, sinus rhythm with sinus arrhythmia left bundle branch block, this was compared to ECG 06/06/2023 Of note patient suffered fall while in the ED, trauma radiology imaging is benign, noncontrast CT scan cervical spine reveals no fracture or subluxation of the cervical spine, head CT no intracranial hemorrhage mass or acute infarct, 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 Abdominal pelvis CT, reveals constipation, airspace opacities of the lung bases consistent with PNA Review of Systems Review of Systems: All systems reviewed & are unremarkable except as noted in HPI and below PMFSH Past Medical History Medical History Alzheimers disease Anxiety Chronic anticoagulation Congestive heart failure Dementia Follows with neurologist, Dr. Galindo. 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 Osteoporosis Paroxysmal atrial fibrillation Pneumonia due to COVID-19 virus Schizoaffective disorder Seizure disorder Thoracic compression fracture T10 Vitamin D deficiency Surgical History Surgical History History of arthroscopy of left shoulder History of bladder suspension procedure History of hysterectomy History of total left hip arthroplasty (2015) Family History Family History Sibling Dementia Cerebrovascular accident Sibling Acute myocardial infarction Mother Cirrhosis Father Emphysema of lung Social History Social History Social History: Surrogate medical decision maker: Cameron Naranjo. Code status: Do not resuscitate. Smoking packs per day: 1 Smoking cigarettes per day: 20.0 Years smoked: 10 Smoking pack-years: 10.00 Smoking status: Never smoker Tobacco type: cigarettes Second hand tobacco smoke exposure: No Smoking end date: 05/08/79 Alcohol intake: never Substance use: never Substance use type: does not use Do You Feel Safe in your Home?: Yes Lack
[2023-07-07] MEDS: LACTATED RINGERS 1,000 ML 75 ML IV CONT (18:47)
[2023-07-07] MEDS: MELATONIN 3 MG TABLET PO (20:29)
[2023-07-07] MEDS: levETIRAcetam 250 MG TABLET PO (20:29)
[2023-07-07] MEDS: guaiFENesin 12 HR 600 MG TABCR PO (20:29)
[2023-07-07] MEDS: DONEPEZIL HCL 10 MG TABLET PO (20:29)
[2023-07-07] MEDS: APIXABAN 5 MG TABLET PO (20:29)
[2023-07-07] MEDS: FAMOTIDINE 20 MG TABLET PO (20:29)
[2023-07-08 01:44] LABS: Glucose Point of Care 86 mg/dl (65-105)
[2023-07-08 04:17] LABS: Glucose Point of Care 83 mg/dl (65-105)
[2023-07-08] MEDS: AZITHROMYCIN 500 MG/NS 250 ML 500 MG/250 ML BAG 250 MG IVPB (05:07)
[2023-07-08 06:17] LABS: Basophils Percent Auto 0.3 % (0.2-1.2); Eosinophils Absolute Auto 0.3 K/mm3 (0-0.3); Eosinophils Percent Auto 3.7 % (0-4.4); Hematocrit 31.1 % (37.0-47.0); Hemoglobin 9.6 g/dL (12.0-15.0); Immature Granulocyte Absolute 0.06 K/mm3 (0.00-0.031); Immature Granulocyte Percent A 0.8 % (0-0.5); Lymphocytes Absolute Auto 1.22 K/mm3 (0.9-3.2); Lymphocytes Percent Auto 15.6 % (18.3-44.2); Mean Corpuscular HGB Conc 30.9 g/dl (32-36); Mean Corpuscular Hemoglobin 32.7 pg (26-34); Mean Corpuscular Volume 105.8 fl (80-100); Mean Platelet Volume 9.5 fl (7.4-10.4); Monocytes Absolute Auto 0.4 K/mm3 (0.1-0.6); Monocytes Percent Auto 5.5 % (2.6-8.5); Neutrophils Absolute Auto 5.8 K/mm3 (1.3-6.7); Neutrophils Percent Auto 74.1 % (45.5-73.1); Platelet Count Result 271 k/mm3 (150-375); Red Blood Count 2.94 M/mm3 (4.2-5.4); Red Cell Distribution Width 14.6 % (11.5-14.5); White Blood Count 7.8 K/mm3 (4.5-10.0)
[2023-07-08 06:25] VITALS: BP 115/54; PULSE 79; RESP 18; TEMP 36.3; O2SAT 95
[2023-07-08 06:28] LABS: Alanine Aminotransferase 10 U/L (6-35); Alkaline Phosphatase 97 U/L (38-126); Anion Gap 5 mmol/L (8-16); Aspartate Amino Transferase 23 U/L (14-36); Bilirubin,Total 0.6 mg/dL (0.2-1.3); Blood Urea Nitrogen 14 mg/dL (7-17); Calcium 8.6 mg/dL (8.4-10.2); Carbon Dioxide 27 mmol/L (22-30); Chloride 106 mmol/L (98-107); Estimated CRCL calculation 37 ml/min; Estimated Glomerular Filt Rate 53; Glucose 88 mg/dL (65-110); Potassium 3.5 mmol/L (3.4-5.0); Sodium 138 mmol/L (137-145)
[2023-07-08 08:00] VITALS: PULSE 81; O2SAT 95
[2023-07-08 08:12] LABS: Glucose Point of Care 96 mg/dl (65-105)
[2023-07-08] MEDS: BENZONATATE 100 MG CAPSULE 200 MG PO ×3 (09:40→16:30)
[2023-07-08] MEDS: FAMOTIDINE 20 MG TABLET PO ×2 (09:40→20:37)
[2023-07-08] MEDS: DULoxetine HCL 60 MG CAPSULE.DR PO (09:40)
[2023-07-08] MEDS: FERROUS SULFATE 325 MG TABLET DR PO (09:40)
[2023-07-08] MEDS: MAGNESIUM OXIDE 400 MG TABLET PO (09:41)
[2023-07-08] MEDS: guaiFENesin 12 HR 600 MG TABCR PO ×2 (09:41→20:37)
[2023-07-08] MEDS: SENNA/DOCUSATE SODIUM TABLET 1 TAB PO (09:42)
[2023-07-08] MEDS: MIRABEGRON 25 MG ER TABLET PO (09:42)
[2023-07-08] MEDS: CYANOCOBALAMIN 1,000 MCG TABLET 1000 MCG PO (09:42)
[2023-07-08] MEDS: FUROSEMIDE 40 MG TABLET PO (09:42)
[2023-07-08] MEDS: PANTOPRAZOLE SOD SESQUIHYDRATE 20 MG TAB PO (09:43)
[2023-07-08] MEDS: APIXABAN 5 MG TABLET PO ×2 (09:44→20:37)
[2023-07-08] MEDS: LORATADINE 10 MG TABLET PO (09:44)
[2023-07-08] MEDS: levETIRAcetam 250 MG TABLET PO ×2 (09:44→20:37)
[2023-07-08] MEDS: dilTIAZem HCL CD 120 MG CAP.24HR PO (09:44)
[2023-07-08] MEDS: POTASSIUM CHLORIDE 20 MEQ ER TABLET PO ×2 (09:44→16:30)
[2023-07-08] MEDS: LORazepam (*CRX) 0.5 MG TABLET PO (09:44)
[2023-07-08] MEDS: lamoTRIgine 100 MG TABLET PO (09:44)
[2023-07-08] MEDS: ASPIRIN 81 MG ENTERIC TABLET PO (09:44)
[2023-07-08] MEDS: ACETAMINOPHEN 325 MG TABLET 650 MG PO (09:47)
[2023-07-08] MEDS: FLUTICASONE PROPIONATE 0.05% NA SPR 16 GM BTL (*BKC) 2 SPRAY NASAL (09:50)
--- NOTE | 2023-07-08 11:33 | PCSTNOTE ---
Please refer to the Bedside Swallow Evaluation in the EMR. Please note, silent aspiration cannot be ruled out at bedside.
[2023-07-08 12:11] LABS: Glucose Point of Care 97 mg/dl (65-105)
--- NOTE | 2023-07-08 12:59 | PCSTNOTE ---
Please refer to the Modified Barium Swallow Evaluation in the EMR.
--- NOTE | 2023-07-08 13:18 | PM.IMPN ---
Progress Note: A&P Assessment and Plan (1) Pneumonia: Code(s): J18.9 - Pneumonia, unspecified organism Status: Acute Assessment and Plan: As evidenced by abdominal CT which revealed constipation, airspace opacities of the lung bases that is consistent with PNA -bedside swallow evaluation reveals: Silent aspiration cannot be ruled out at the bedside, will order barium swallow -continue Bronchodilators incentive spirometry while awake. sputum culture ordered influenza/COVID/RSV negative antibiotic therapy ceftriaxone/azithromycin Q 24 hours supplemental oxygen therapy to maintain oxygen 92% Needs to weaned Guaifenesin b.i.d. Antipyretics for fever and body aches (2) Constipation: Code(s): K59.00 - Constipation, unspecified Status: Acute Assessment and Plan: As evidence by abdominal CT scan -s/p docusate sodium enema given in the ed -use polyethylene glycol 17gm in the am - (3) Fall: Code(s): W19.XXXA - Unspecified fall, initial encounter Status: Acute Assessment and Plan: -initiate fall precautions (4) GERD (gastroesophageal reflux disease): Qualifiers: Esophagitis presence: esophagitis presence not specified Qualified Code(s): K21.9 - Gastro-esophageal reflux disease without esophagitis Code(s): K21.9 - Gastro-esophageal reflux disease without esophagitis Status: Chronic Assessment and Plan: -continue home medication (5) Iron deficiency anemia: Qualifiers: Iron deficiency anemia type: inadequate dietary iron intake Qualified Code(s): D50.8 - Other iron deficiency anemias Code(s): D50.9 - Iron deficiency anemia, unspecified Status: Acute Assessment and Plan: -continue medication ferrous sulfate 325 mg p.o. daily (6) Paroxysmal atrial fibrillation: Code(s): I48.0 - Paroxysmal atrial fibrillation Status: Chronic Assessment and Plan: -continue medication diltiazem 120 mg p.o. daily -continue home medication Eliquis 5 mg b.i.d. (7) Schizoaffective disorder: Qualifiers: Schizoaffective disorder type: unspecified Qualified Code(s): F25.9 - Schizoaffective disorder, unspecified Code(s): F25.9 - Schizoaffective disorder, unspecified Status: Chronic Assessment and Plan: -continue medication donepezil 10 p.o. daily (8) Cough in adult: Code(s): R05.9 - Cough, unspecified Status: Chronic Assessment and Plan: Chronic in nature,-concerned for aspiration -barium swallow study revealed IMPRESSION: 1. One episode of laryngeal penetration. 2. Please refer to the speech therapy report for recommendations. Speech therapy evaluation, recommendation -continue oral feedings, patient may eat independently, ensure patient is upright and patient should remain upright at least 30 minutes following all oral intake Recommend food consistency is regular level 7 with regular/thin consistency liquids minimize distractions small bites/lips, no skilled ST recommended for swallow function at this time - Plan Continue home medications: VTE Prophylaxis: SCDs/Eliquis DIET: Regular diet level 7 with regular/thin consistency liquids Anticipated hospital stay: > 2 days Code Status: DNR Subjective Date/time seen: 07/08/23 13:18 Interval history: Chief Complaint: 82-year-old female who presented to the emergency department via EMS from [facility] facility with chief complaint of abdominal pain cough. Narrative: HPI: Patient is an 82-year-old female with dementia, seizures, proximal atrial fibrillation on anticoagulation congestive heart failure, hyperlipidemia, GERD disease as well as iron deficiency anemia presented to the emergency room with reports generalized weakness, ongoing abdominal pain and cough for the past 2 days.? Unfortunately at this time patient is not a reliable historian the majority of information is obtained through chart
[2023-07-08 13:45] VITALS: BP 110/58; PULSE 70; RESP 20; TEMP 36.9; O2SAT 95
[2023-07-08 16:20] LABS: Glucose Point of Care 96 mg/dl (65-105)
[2023-07-08] MEDS: ATORVASTATIN 10 MG TABLET PO (16:30)
[2023-07-08 20:25] VITALS: BP 123/47; PULSE 68; RESP 20; TEMP 36.4; O2SAT 96
[2023-07-08] MEDS: MELATONIN 3 MG TABLET PO (20:37)
[2023-07-08] MEDS: DONEPEZIL HCL 10 MG TABLET PO (20:37)
[2023-07-08 21:35] LABS: Glucose Point of Care 100 mg/dl (65-105)
[2023-07-09 01:01] LABS: Glucose Point of Care 93 mg/dl (65-105)
[2023-07-09] MEDS: ACETAMINOPHEN 325 MG TABLET 650 MG PO (05:06)
[2023-07-09] MEDS: AZITHROMYCIN 500 MG/NS 250 ML 500 MG/250 ML BAG 250 MG IVPB (05:07)
[2023-07-09 05:15] VITALS: BP 137/45; PULSE 68; RESP 20; TEMP 36.5; O2SAT 92
[2023-07-09 05:26] LABS: Glucose Point of Care 89 mg/dl (65-105)
[2023-07-09 06:25] LABS: Basophils Percent Auto 0.5 % (0.2-1.2); Eosinophils Absolute Auto 0.4 K/mm3 (0-0.3); Eosinophils Percent Auto 6.6 % (0-4.4); Hemoglobin 9.3 g/dL (12.0-15.0); Immature Granulocyte Absolute 0.04 K/mm3 (0.00-0.031); Immature Granulocyte Percent A 0.6 % (0-0.5); Lymphocytes Absolute Auto 1.53 K/mm3 (0.9-3.2); Lymphocytes Percent Auto 23.9 % (18.3-44.2); Mean Corpuscular Hemoglobin 32.9 pg (26-34); Mean Platelet Volume 9.6 fl (7.4-10.4); Monocytes Absolute Auto 0.3 K/mm3 (0.1-0.6); Monocytes Percent Auto 5.1 % (2.6-8.5); Neutrophils Absolute Auto 4.1 K/mm3 (1.3-6.7); Neutrophils Percent Auto 63.3 % (45.5-73.1); Platelet Count Result 284 k/mm3 (150-375); Red Blood Count 2.83 M/mm3 (4.2-5.4); Red Cell Distribution Width 14.4 % (11.5-14.5); White Blood Count 6.4 K/mm3 (4.5-10.0)
[2023-07-09 06:44] LABS: Alanine Aminotransferase 11 U/L (6-35); Albumin Level 3.1 g/dL (3.5-5.1); Alkaline Phosphatase 99 U/L (38-126); Anion Gap 5 mmol/L (8-16); Aspartate Amino Transferase 24 U/L (14-36); Bilirubin,Total 0.5 mg/dL (0.2-1.3); Blood Urea Nitrogen 13 mg/dL (7-17); Calcium 8.5 mg/dL (8.4-10.2); Carbon Dioxide 28 mmol/L (22-30); Chloride 103 mmol/L (98-107); Estimated CRCL calculation 41 ml/min; Estimated Glomerular Filt Rate 60; Glucose 87 mg/dL (65-110); Potassium 3.5 mmol/L (3.4-5.0); Sodium 136 mmol/L (137-145)
[2023-07-09 08:00] VITALS: PULSE 74; O2SAT 98
[2023-07-09 08:12] LABS: Glucose Point of Care 90 mg/dl (65-105)
[2023-07-09] MEDS: SENNA/DOCUSATE SODIUM TABLET 1 TAB PO (09:02)
[2023-07-09] MEDS: POTASSIUM CHLORIDE 20 MEQ ER TABLET PO ×2 (09:02→16:33)
[2023-07-09] MEDS: guaiFENesin 12 HR 600 MG TABCR PO ×2 (09:02→21:18)
[2023-07-09] MEDS: FERROUS SULFATE 325 MG TABLET DR PO (09:02)
[2023-07-09] MEDS: CYANOCOBALAMIN 1,000 MCG TABLET 1000 MCG PO (09:03)
[2023-07-09] MEDS: dilTIAZem HCL CD 120 MG CAP.24HR PO (09:03)
[2023-07-09] MEDS: APIXABAN 5 MG TABLET PO ×2 (09:03→21:18)
[2023-07-09] MEDS: FAMOTIDINE 20 MG TABLET PO ×2 (09:03→21:19)
[2023-07-09] MEDS: BENZONATATE 100 MG CAPSULE 200 MG PO ×3 (09:03→16:33)
[2023-07-09] MEDS: levETIRAcetam 250 MG TABLET PO ×2 (09:03→21:18)
[2023-07-09] MEDS: lamoTRIgine 100 MG TABLET PO (09:03)
[2023-07-09] MEDS: LORATADINE 10 MG TABLET PO (09:03)
[2023-07-09] MEDS: FUROSEMIDE 40 MG TABLET PO (09:03)
[2023-07-09] MEDS: DULoxetine HCL 60 MG CAPSULE.DR PO (09:03)
[2023-07-09] MEDS: MIRABEGRON 25 MG ER TABLET PO (09:03)
[2023-07-09] MEDS: LORazepam (*CRX) 0.5 MG TABLET PO (09:04)
[2023-07-09] MEDS: MAGNESIUM OXIDE 400 MG TABLET PO (09:04)
[2023-07-09] MEDS: PANTOPRAZOLE SOD SESQUIHYDRATE 20 MG TAB PO (09:04)
[2023-07-09] MEDS: ASPIRIN 81 MG ENTERIC TABLET PO (09:04)
[2023-07-09 09:05] VITALS: O2SAT 98
[2023-07-09] MEDS: FLUTICASONE PROPIONATE 0.05% NA SPR 16 GM BTL (*BKC) 2 SPRAY NASAL (09:05)
--- NOTE | 2023-07-09 10:39 | PM.IMPN ---
Progress Note: A&P Assessment and Plan (1) Pneumonia: Code(s): J18.9 - Pneumonia, unspecified organism Status: Acute Assessment and Plan: As evidenced by abdominal CT which revealed constipation, airspace opacities of the lung bases that is consistent with PNA -bedside swallow evaluation reveals 1 episode of laryngeal penetration, follow speech recommendations -continue Bronchodilators incentive spirometry while awake. sputum culture ordered influenza/COVID/RSV negative antibiotic therapy ceftriaxone/azithromycin Q 24 hours supplemental oxygen therapy to maintain oxygen 92% Needs to weaned Guaifenesin b.i.d. Antipyretics for fever and body aches (2) Cough in adult: Code(s): R05.9 - Cough, unspecified Status: Chronic Assessment and Plan: Chronic in nature,-concerned for aspiration -barium swallow study revealed IMPRESSION: 1. One episode of laryngeal penetration. 2. Please refer to the speech therapy report for recommendations. Speech therapy evaluation, recommendation -continue oral feedings, patient may eat independently, ensure patient is upright and patient should remain upright at least 30 minutes following all oral intake Recommend food consistency is regular level 7 with regular/thin consistency liquids minimize distractions small bites/lips, no skilled ST recommended for swallow function at this time - (3) Fall: Code(s): W19.XXXA - Unspecified fall, initial encounter Status: Acute Assessment and Plan: -initiate fall precautions (4) Iron deficiency anemia: Qualifiers: Iron deficiency anemia type: inadequate dietary iron intake Qualified Code(s): D50.8 - Other iron deficiency anemias Code(s): D50.9 - Iron deficiency anemia, unspecified Status: Acute Assessment and Plan: -continue medication ferrous sulfate 325 mg p.o. daily (5) GERD (gastroesophageal reflux disease): Qualifiers: Esophagitis presence: esophagitis presence not specified Qualified Code(s): K21.9 - Gastro-esophageal reflux disease without esophagitis Code(s): K21.9 - Gastro-esophageal reflux disease without esophagitis Status: Chronic Assessment and Plan: -continue home medication (6) Constipation: Code(s): K59.00 - Constipation, unspecified Status: Acute Assessment and Plan: As evidence by abdominal CT scan, patient reports she is still constipated has not had a bowel movement since admission -s/p docusate sodium enema given in the ed -use polyethylene glycol 17gm in the am (7) Paroxysmal atrial fibrillation: Code(s): I48.0 - Paroxysmal atrial fibrillation Status: Chronic Assessment and Plan: -continue telemetry monitoring, concurrently in sinus rhythm -continue medication diltiazem 120 mg p.o. daily -continue home medication Eliquis 5 mg b.i.d. (8) Schizoaffective disorder: Qualifiers: Schizoaffective disorder type: unspecified Qualified Code(s): F25.9 - Schizoaffective disorder, unspecified Code(s): F25.9 - Schizoaffective disorder, unspecified Status: Chronic Assessment and Plan: -continue medication donepezil 10 p.o. daily Plan Continue home medications: VTE Prophylaxis: Eliquis DIET: Regular diet level 7 with regular/thin consistency liquids Anticipated hospital stay: > 2 days Code Status: DNR Subjective Date/time seen: 07/09/23 10:39 Interval history: Chief Complaint: 82-year-old female who [facility] emergency [facility] with chief complaint of abdominal pain cough. Narrative: HPI: Patient is an 82-year-old female with dementia, seizures, proximal atrial fibrillation on anticoagulation congestive heart failure, hyperlipidemia, GERD disease as well as iron deficiency anemia presented to the emergency room with reports generalized weakness, ongoing abdominal pain and cough for the past
[2023-07-09 12:33] LABS: Glucose Point of Care 129 mg/dl (65-105)
[2023-07-09 14:00] VITALS: BP 104/36; PULSE 67; RESP 20; TEMP 36.2; O2SAT 96
[2023-07-09] MEDS: ATORVASTATIN 10 MG TABLET PO (16:33)
[2023-07-09 16:49] LABS: Glucose Point of Care 93 mg/dl (65-105)
[2023-07-09 21:00] VITALS: BP 128/47; PULSE 58; RESP 20; TEMP 36.6; O2SAT 97
[2023-07-09] MEDS: DONEPEZIL HCL 10 MG TABLET PO (21:18)
[2023-07-09] MEDS: MELATONIN 3 MG TABLET PO (21:18)
[2023-07-09 21:24] LABS: Glucose Point of Care 85 mg/dl (65-105)
[2023-07-10 01:10] LABS: Glucose Point of Care 91 mg/dl (65-105)
[2023-07-10 04:50] VITALS: BP 129/47; PULSE 69; RESP 20; TEMP 36.8; O2SAT 97
[2023-07-10 05:07] LABS: Glucose Point of Care 87 mg/dl (65-105)
[2023-07-10] MEDS: AZITHROMYCIN 500 MG/NS 250 ML 500 MG/250 ML BAG 250 MG IVPB (05:18)
[2023-07-10 06:51] LABS: Basophils Percent Auto 0.5 % (0.2-1.2); Eosinophils Absolute Auto 0.4 K/mm3 (0-0.3); Eosinophils Percent Auto 6.6 % (0-4.4); Hematocrit 31.1 % (37.0-47.0); Hemoglobin 9.6 g/dL (12.0-15.0); Immature Granulocyte Absolute 0.04 K/mm3 (0.00-0.031); Immature Granulocyte Percent A 0.7 % (0-0.5); Lymphocytes Absolute Auto 1.46 K/mm3 (0.9-3.2); Lymphocytes Percent Auto 24.8 % (18.3-44.2); Mean Corpuscular HGB Conc 30.9 g/dl (32-36); Mean Corpuscular Hemoglobin 32.5 pg (26-34); Mean Corpuscular Volume 105.4 fl (80-100); Mean Platelet Volume 9.5 fl (7.4-10.4); Monocytes Absolute Auto 0.4 K/mm3 (0.1-0.6); Monocytes Percent Auto 5.9 % (2.6-8.5); Neutrophils Absolute Auto 3.6 K/mm3 (1.3-6.7); Neutrophils Percent Auto 61.5 % (45.5-73.1); Platelet Count Result 322 k/mm3 (150-375); Red Blood Count 2.95 M/mm3 (4.2-5.4); Red Cell Distribution Width 14.1 % (11.5-14.5); White Blood Count 5.9 K/mm3 (4.5-10.0)
[2023-07-10 07:00] LABS: Alanine Aminotransferase 12 U/L (6-35); Albumin Level 3.3 g/dL (3.5-5.1); Alkaline Phosphatase 97 U/L (38-126); Anion Gap 4 mmol/L (8-16); Aspartate Amino Transferase 24 U/L (14-36); Bilirubin,Total 0.4 mg/dL (0.2-1.3); Blood Urea Nitrogen 9 mg/dL (7-17); Calcium 8.9 mg/dL (8.4-10.2); Carbon Dioxide 30 mmol/L (22-30); Chloride 103 mmol/L (98-107); Estimated CRCL calculation 41 ml/min; Estimated Glomerular Filt Rate 60; Glucose 87 mg/dL (65-110); Potassium 3.7 mmol/L (3.4-5.0); Sodium 137 mmol/L (137-145)
--- NOTE | 2023-07-10 07:28 | PM.IMPN ---
Progress Note: A&P Assessment and Plan (1) Pneumonia: Code(s): J18.9 - Pneumonia, unspecified organism Status: Acute Assessment and Plan: 07/09/23: As evidenced by abdominal CT which revealed constipation, airspace opacities of the lung bases that is consistent with PNA -bedside swallow evaluation reveals 1 episode of laryngeal penetration, follow speech recommendations -continue Bronchodilators incentive spirometry while awake. sputum culture ordered influenza/COVID/RSV negative antibiotic therapy ceftriaxone/azithromycin Q 24 hours supplemental oxygen therapy to maintain oxygen 92% Needs to weaned Guaifenesin b.i.d. Antipyretics for fever and body aches 07/10/23: Continue with current treatment plan (2) Cough in adult: Code(s): R05.9 - Cough, unspecified Status: Chronic Assessment and Plan: 07/09/23: Chronic in nature,-concerned for aspiration -barium swallow study revealed IMPRESSION: 1. One episode of laryngeal penetration. 2. Please refer to the speech therapy report for recommendations. Speech therapy evaluation, recommendation -continue oral feedings, patient may eat independently, ensure patient is upright and patient should remain upright at least 30 minutes following all oral intake Recommend food consistency is regular level 7 with regular/thin consistency liquids minimize distractions small bites/lips, no skilled ST recommended for swallow function at this time 07/10/23: No change to current treatment plan (3) Fall: Code(s): W19.XXXA - Unspecified fall, initial encounter Status: Acute Assessment and Plan: 07/09/23: -initiate fall precautions 07/10/23: Continue fall precautions (4) Iron deficiency anemia: Qualifiers: Iron deficiency anemia type: inadequate dietary iron intake Qualified Code(s): D50.8 - Other iron deficiency anemias Code(s): D50.9 - Iron deficiency anemia, unspecified Status: Acute Assessment and Plan: 07/09/23 -continue medication ferrous sulfate 325 mg p.o. daily 07/10/23: No change to current treatment plan (5) GERD (gastroesophageal reflux disease): Qualifiers: Esophagitis presence: esophagitis presence not specified Qualified Code(s): K21.9 - Gastro-esophageal reflux disease without esophagitis Code(s): K21.9 - Gastro-esophageal reflux disease without esophagitis Status: Chronic Assessment and Plan: 07/09/23: -continue home medication 07/10/23: Currently Protonix No change to current treatment plan (6) Constipation: Code(s): K59.00 - Constipation, unspecified Status: Acute Assessment and Plan: 07/09/23: As evidence by abdominal CT scan, patient reports she is still constipated has not had a bowel movement since admission -s/p docusate sodium enema given in the ed -use polyethylene glycol 17gm in the am 07/10/23: Patient had bowel movement today No change to current treatment plan (7) Paroxysmal atrial fibrillation: Code(s): I48.0 - Paroxysmal atrial fibrillation Status: Chronic Assessment and Plan: 07/09/23: -continue telemetry monitoring, concurrently in sinus rhythm -continue medication diltiazem 120 mg p.o. daily -continue home medication Eliquis 5 mg b.i.d. 07/10/23: DC continue telemetry monitoring Continue current treatment plan (8) Schizoaffective disorder: Qualifiers: Schizoaffective disorder type: unspecified Qualified Code(s): F25.9 - Schizoaffective disorder, unspecified Code(s): F25.9 - Schizoaffective disorder, unspecified Status: Chronic Assessment and Plan: 07/09/23: -continue medication donepezil 10 p.o. daily 07/10/23: No change to current treatment plan Time Spent With Patient Time with patient: Greater than 35 minutes Subjective Date/time seen: 07/10/23 07:28 Interval history: This is an 82 year old female who presented to the hospital with chief compla
[2023-07-10 07:52] LABS: Glucose Point of Care 88 mg/dl (65-105)
[2023-07-10] MEDS: dilTIAZem HCL CD 120 MG CAP.24HR PO (08:06)
[2023-07-10] MEDS: levETIRAcetam 250 MG TABLET PO ×2 (08:07→21:35)
[2023-07-10] MEDS: FERROUS SULFATE 325 MG TABLET DR PO (08:07)
[2023-07-10] MEDS: POTASSIUM CHLORIDE 20 MEQ ER TABLET PO ×2 (08:07→16:53)
[2023-07-10] MEDS: PANTOPRAZOLE SOD SESQUIHYDRATE 20 MG TAB PO (08:07)
[2023-07-10] MEDS: FAMOTIDINE 20 MG TABLET PO ×2 (08:07→21:35)
[2023-07-10] MEDS: SENNA/DOCUSATE SODIUM TABLET 1 TAB PO (08:07)
[2023-07-10] MEDS: lamoTRIgine 100 MG TABLET PO (08:07)
[2023-07-10] MEDS: BENZONATATE 100 MG CAPSULE 200 MG PO ×3 (08:07→16:53)
[2023-07-10] MEDS: LORazepam (*CRX) 0.5 MG TABLET PO (08:07)
[2023-07-10] MEDS: guaiFENesin 12 HR 600 MG TABCR PO ×2 (08:07→21:35)
[2023-07-10] MEDS: APIXABAN 5 MG TABLET PO ×2 (08:07→21:35)
[2023-07-10] MEDS: FUROSEMIDE 40 MG TABLET PO (08:08)
[2023-07-10] MEDS: LORATADINE 10 MG TABLET PO (08:08)
[2023-07-10] MEDS: CYANOCOBALAMIN 1,000 MCG TABLET 1000 MCG PO (08:08)
[2023-07-10] MEDS: MIRABEGRON 25 MG ER TABLET PO (08:08)
[2023-07-10] MEDS: MAGNESIUM OXIDE 400 MG TABLET PO (08:08)
[2023-07-10] MEDS: FLUTICASONE PROPIONATE 0.05% NA SPR 16 GM BTL (*BKC) 2 SPRAY NASAL (08:09)
[2023-07-10] MEDS: DULoxetine HCL 60 MG CAPSULE.DR PO (08:09)
[2023-07-10] MEDS: ASPIRIN 81 MG ENTERIC TABLET PO (08:09)
--- NOTE | 2023-07-10 11:05 | PCNFU ---
Nutrition Follow-Up Complete: Inadequate oral intake related to altered mental status as evidenced by intakes 0-20% Goal: Improved PO intake at least 50% meals Pt current nutrition is Minced and moist level 5, Ensure compact BID. Nutrition recommendation: continue with current plan of care Last recorded weight is 69.2 kg. Bowel Motility: +BM 3/2 Labs Reviewed: Hgb:9.6, HCT:31.1, Alb:3.3 Meds Noted: eliquis, lasix, protonix, KCL Skin: no skin issues noted Additional Notes: Pt continues on a minced and moist level 5 diet, noted speech has stated she can upgrade. Intake is varied 25-100%, pt reports eating well, drinking Ensure. Encouraged intake of meals and supplements. Monitoring intakes, weights, labs, supplement tolerance, plan of care Follow up in 5 days
[2023-07-10 11:45] LABS: Glucose Point of Care 102 mg/dl (65-105)
[2023-07-10 14:00] VITALS: BP 109/74; PULSE 77; RESP 20; TEMP 36.9; O2SAT 97
[2023-07-10 16:21] LABS: Glucose Point of Care 94 mg/dl (65-105)
[2023-07-10] MEDS: ATORVASTATIN 10 MG TABLET PO (16:53)
[2023-07-10 20:50] VITALS: BP 105/56; PULSE 72; RESP 16; TEMP 36.3; O2SAT 97
[2023-07-10] MEDS: DONEPEZIL HCL 10 MG TABLET PO (21:35)
[2023-07-10] MEDS: MELATONIN 3 MG TABLET PO (21:35)
[2023-07-11 00:19] LABS: Glucose Point of Care 92 mg/dl (65-105)
[2023-07-11 05:20] VITALS: BP 103/44; PULSE 72; RESP 20; TEMP 36.4; O2SAT 96
[2023-07-11 06:03] LABS: Glucose Point of Care 96 mg/dl (65-105)
[2023-07-11 07:10] LABS: Basophils Percent Auto 0.6 % (0.2-1.2); Eosinophils Absolute Auto 0.3 K/mm3 (0-0.3); Eosinophils Percent Auto 6.4 % (0-4.4); Hemoglobin 9.7 g/dL (12.0-15.0); Immature Granulocyte Absolute 0.02 K/mm3 (0.00-0.031); Immature Granulocyte Percent A 0.4 % (0-0.5); Lymphocytes Absolute Auto 1.73 K/mm3 (0.9-3.2); Lymphocytes Percent Auto 32.4 % (18.3-44.2); Mean Corpuscular HGB Conc 31.3 g/dl (32-36); Mean Corpuscular Hemoglobin 32.8 pg (26-34); Mean Corpuscular Volume 104.7 fl (80-100); Mean Platelet Volume 9.6 fl (7.4-10.4); Monocytes Absolute Auto 0.4 K/mm3 (0.1-0.6); Monocytes Percent Auto 6.9 % (2.6-8.5); Neutrophils Absolute Auto 2.9 K/mm3 (1.3-6.7); Neutrophils Percent Auto 53.3 % (45.5-73.1); Platelet Count Result 323 k/mm3 (150-375); Red Blood Count 2.96 M/mm3 (4.2-5.4); Red Cell Distribution Width 14.2 % (11.5-14.5); White Blood Count 5.3 K/mm3 (4.5-10.0)
[2023-07-11 07:26] LABS: Alanine Aminotransferase 12 U/L (6-35); Albumin Level 3.3 g/dL (3.5-5.1); Alkaline Phosphatase 80 U/L (38-126); Anion Gap 5 mmol/L (8-16); Aspartate Amino Transferase 30 U/L (14-36); Bilirubin,Total 0.7 mg/dL (0.2-1.3); Blood Urea Nitrogen 13 mg/dL (7-17); Calcium 8.9 mg/dL (8.4-10.2); Carbon Dioxide 27 mmol/L (22-30); Chloride 103 mmol/L (98-107); Estimated CRCL calculation 38 ml/min; Estimated Glomerular Filt Rate 60; Glucose 93 mg/dL (65-110); Potassium 4.4 mmol/L (3.4-5.0); Sodium 135 mmol/L (137-145)
[2023-07-11 08:13] LABS: Glucose Point of Care 90 mg/dl (65-105)
[2023-07-11] MEDS: SENNA/DOCUSATE SODIUM TABLET 1 TAB PO (09:27)
[2023-07-11] MEDS: levETIRAcetam 250 MG TABLET PO ×2 (09:27→20:00)
[2023-07-11] MEDS: POTASSIUM CHLORIDE 20 MEQ ER TABLET PO ×2 (09:28→17:20)
[2023-07-11] MEDS: FAMOTIDINE 20 MG TABLET PO ×2 (09:28→20:07)
[2023-07-11] MEDS: PANTOPRAZOLE SOD SESQUIHYDRATE 20 MG TAB PO (09:28)
[2023-07-11] MEDS: AMOXICILLIN/CLAVULANATE K 875-125 MG TAB 1 TABLET PO ×2 (09:28→20:07)
[2023-07-11] MEDS: ASPIRIN 81 MG ENTERIC TABLET PO (09:28)
[2023-07-11] MEDS: MIRABEGRON 25 MG ER TABLET PO (09:28)
[2023-07-11] MEDS: FERROUS SULFATE 325 MG TABLET DR PO (09:28)
[2023-07-11] MEDS: lamoTRIgine 100 MG TABLET PO (09:28)
[2023-07-11] MEDS: APIXABAN 5 MG TABLET PO ×2 (09:28→20:06)
[2023-07-11] MEDS: dilTIAZem HCL CD 120 MG CAP.24HR PO (09:28)
[2023-07-11] MEDS: LORazepam (*CRX) 0.5 MG TABLET PO (09:28)
[2023-07-11] MEDS: MAGNESIUM OXIDE 400 MG TABLET PO (09:28)
[2023-07-11] MEDS: CYANOCOBALAMIN 1,000 MCG TABLET 1000 MCG PO (09:28)
[2023-07-11] MEDS: LORATADINE 10 MG TABLET PO (09:29)
[2023-07-11] MEDS: guaiFENesin 12 HR 600 MG TABCR PO ×2 (09:30→20:06)
[2023-07-11] MEDS: DULoxetine HCL 60 MG CAPSULE.DR PO (09:30)
[2023-07-11] MEDS: FUROSEMIDE 40 MG TABLET PO (09:31)
[2023-07-11] MEDS: AZITHROMYCIN 250 MG TABLET 500 MG PO (09:32)
[2023-07-11] MEDS: BENZONATATE 100 MG CAPSULE 200 MG PO ×3 (09:33→17:20)
[2023-07-11] MEDS: FLUTICASONE PROPIONATE 0.05% NA SPR 16 GM BTL (*BKC) 2 SPRAY NASAL (09:34)
[2023-07-11] MEDS: ERGOCALCIFEROL 50,000 UNITS CAPSULE 50000 UNITS PO (09:34)
--- NOTE | 2023-07-11 10:30 | PM.IMPN ---
Progress Note: A&P Assessment and Plan (1) Pneumonia: Code(s): J18.9 - Pneumonia, unspecified organism <Anette Barnett Student - Last Filed: 07/11/23 12:14> Status: Acute <Anette Barnett - Last Filed: 07/11/23 12:14> Assessment and Plan: As evidenced by abdominal CT which revealed constipation, airspace opacities of the lung bases that is consistent with PNA -bedside swallow evaluation reveals 1 episode of laryngeal penetration, follow speech recommendations -continue Bronchodilators incentive spirometry while awake. sputum culture ordered influenza/COVID/RSV negative Abx treatment: continue Augmentin supplemental oxygen therapy to maintain oxygen 92% Needs to weaned Antipyretics for fever and body aches <Anette Barnett Student - Last Filed: 07/11/23 12:14> (2) Cough in adult: Code(s): R05.9 - Cough, unspecified <Anette Barnett Student - Last Filed: 07/11/23 12:14> Status: Chronic <Anette Barnett Student - Last Filed: 07/11/23 12:14> Assessment and Plan: Chronic in nature,-concerned for aspiration -barium swallow study revealed IMPRESSION: 1. One episode of laryngeal penetration. 2. Please refer to the speech therapy report for recommendations. Speech therapy evaluation, recommendation -continue oral feedings, patient may eat independently, ensure patient is upright and patient should remain upright at least 30 minutes following all oral intake Recommend food consistency is regular level 7 with regular/thin consistency liquids minimize distractions small bites/lips, no skilled ST recommended for swallow function at this time Continue recommended diet and speech therapy recs <Anette Barnett Student - Last Filed: 07/11/23 12:14> (3) Fall: Code(s): W19.XXXA - Unspecified fall, initial encounter <Anette Barnett Student - Last Filed: 07/11/23 12:14> Status: Acute <Anette Barnett - Last Filed: 07/11/23 12:14> Assessment and Plan: Patient had a ground level fall in the ED on arrival. Imaging was negative for traumatic injuries. Continue fall precautions <Anette Dealjennifersakina, Student - Last Filed: 07/11/23 12:14> (4) Iron deficiency anemia: Qualifiers: Iron deficiency anemia type: inadequate dietary iron intake Qualified Code(s): D50.8 - Other iron deficiency anemias <Anette Dealjennifersakina, Student - Last Filed: 07/11/23 12:14> Code(s): D50.9 - Iron deficiency anemia, unspecified <Anette Washington Ericka, Student - Last Filed: 07/11/23 12:14> Status: Acute <Anette Dealjennifersakina, Student - Last Filed: 07/11/23 12:14> Assessment and Plan: continue medication ferrous sulfate 325 mg p.o. daily No change to current treatment plan <Anette Washington Ericka, Student - Last Filed: 07/11/23 12:14> (5) GERD (gastroesophageal reflux disease): Qualifiers: Esophagitis presence: esophagitis presence not specified Qualified Code(s): K21.9 - Gastro-esophageal reflux disease without esophagitis <Anette Washington Ericka, Student - Last Filed: 07/11/23 12:14> Code(s): K21.9 - Gastro-esophageal reflux disease without esophagitis <Anette Washington Ericka, Student - Last Filed: 07/11/23 12:14> Status: Chronic <Anette Washington Ericka, Student - Last Filed: 07/11/23 12:14> Assessment and Plan: Continue home protonix <Anette WatkinsPrincess Barnett, Student - Last Filed: 07/11/23 12:14> (6) Constipation: Code(s): K59.00 - Constipation, unspecified <Anette Washington Ericka, Student - Last Filed: 07/11/23 12:14> Status: Acute <Anette Washington Ericka, Student - Last Filed: 07/11/23 12:14> Assessment and Plan: As evidence by abdominal CT scan, patient reports she is still constipated has not had a bowel movement since admission s/p docusate sodium enema given in the ed Scheduled senna Use mi
[2023-07-11] MEDS: polyethylene glycoL 3350 17 GM POWD.PACK PO (13:01)
[2023-07-11 14:00] VITALS: BP 104/45; PULSE 85; RESP 20; TEMP 36.6; O2SAT 97
[2023-07-11 16:19] LABS: Glucose Point of Care 86 mg/dl (65-105)
[2023-07-11] MEDS: ATORVASTATIN 10 MG TABLET PO (17:20)
[2023-07-11 19:27] VITALS: PULSE 85; RESP 20; O2SAT 97
[2023-07-11] MEDS: DONEPEZIL HCL 10 MG TABLET PO (20:06)
[2023-07-11] MEDS: MELATONIN 3 MG TABLET PO (20:07)
[2023-07-11 20:55] VITALS: BP 114/65; PULSE 76; RESP 18; TEMP 36.2; O2SAT 97
[2023-07-11 21:38] LABS: Pneumococcal Antigen Urine Not Detected (Not Detected)
[2023-07-12 00:37] LABS: Glucose Point of Care 85 mg/dl (65-105)
[2023-07-12 02:16] LABS: Legionella pneumophila Ag Ur Not Detected (Not Detected)
[2023-07-12 05:10] VITALS: BP 143/55; PULSE 59; RESP 20; TEMP 36.6; O2SAT 97
[2023-07-12 05:17] LABS: Glucose Point of Care 89 mg/dl (65-105)
[2023-07-12 06:25] LABS: Basophils Percent Auto 0.5 % (0.2-1.2); Eosinophils Absolute Auto 0.4 K/mm3 (0-0.3); Hematocrit 34.5 % (37.0-47.0); Hemoglobin 10.6 g/dL (12.0-15.0); Immature Granulocyte Absolute 0.04 K/mm3 (0.00-0.031); Immature Granulocyte Percent A 0.7 % (0-0.5); Lymphocytes Absolute Auto 1.98 K/mm3 (0.9-3.2); Lymphocytes Percent Auto 32.9 % (18.3-44.2); Mean Corpuscular HGB Conc 30.7 g/dl (32-36); Mean Corpuscular Hemoglobin 32.4 pg (26-34); Mean Corpuscular Volume 105.5 fl (80-100); Mean Platelet Volume 9.4 fl (7.4-10.4); Monocytes Absolute Auto 0.4 K/mm3 (0.1-0.6); Monocytes Percent Auto 7.3 % (2.6-8.5); Neutrophils Absolute Auto 3.1 K/mm3 (1.3-6.7); Neutrophils Percent Auto 51.6 % (45.5-73.1); Platelet Count Result 359 k/mm3 (150-375); Red Blood Count 3.27 M/mm3 (4.2-5.4); Red Cell Distribution Width 14.2 % (11.5-14.5)
[2023-07-12 06:37] LABS: Alanine Aminotransferase 13 U/L (6-35); Albumin Level 3.3 g/dL (3.5-5.1); Alkaline Phosphatase 92 U/L (38-126); Anion Gap 4 mmol/L (8-16); Aspartate Amino Transferase 25 U/L (14-36); Bilirubin,Total 0.6 mg/dL (0.2-1.3); Blood Urea Nitrogen 12 mg/dL (7-17); Calcium 9.3 mg/dL (8.4-10.2); Carbon Dioxide 30 mmol/L (22-30); Chloride 103 mmol/L (98-107); Estimated CRCL calculation 28 ml/min; Estimated Glomerular Filt Rate 47; Glucose 91 mg/dL (65-110); Potassium 4.3 mmol/L (3.4-5.0); Sodium 137 mmol/L (137-145)
[2023-07-12 07:51] LABS: Glucose Point of Care 92 mg/dl (65-105)
[2023-07-12 08:00] VITALS: PULSE 59; RESP 20; O2SAT 97
[2023-07-12] MEDS: dilTIAZem HCL CD 120 MG CAP.24HR PO (08:44)
[2023-07-12] MEDS: levETIRAcetam 250 MG TABLET PO (08:44)
[2023-07-12] MEDS: ASPIRIN 81 MG ENTERIC TABLET PO (08:44)
[2023-07-12] MEDS: APIXABAN 5 MG TABLET PO (08:44)
[2023-07-12] MEDS: FUROSEMIDE 40 MG TABLET PO (08:44)
[2023-07-12] MEDS: DULoxetine HCL 60 MG CAPSULE.DR PO (08:45)
[2023-07-12] MEDS: PANTOPRAZOLE SOD SESQUIHYDRATE 20 MG TAB PO (08:45)
[2023-07-12] MEDS: FERROUS SULFATE 325 MG TABLET DR PO (08:45)
[2023-07-12] MEDS: guaiFENesin 12 HR 600 MG TABCR PO (08:45)
[2023-07-12] MEDS: LORazepam (*CRX) 0.5 MG TABLET PO (08:45)
[2023-07-12] MEDS: MAGNESIUM OXIDE 400 MG TABLET PO (08:45)
[2023-07-12] MEDS: BENZONATATE 100 MG CAPSULE 200 MG PO (08:45)
[2023-07-12] MEDS: SENNA/DOCUSATE SODIUM TABLET 1 TAB PO (08:45)
[2023-07-12] MEDS: CYANOCOBALAMIN 1,000 MCG TABLET 1000 MCG PO (08:45)
[2023-07-12] MEDS: lamoTRIgine 100 MG TABLET PO (08:45)
[2023-07-12] MEDS: LORATADINE 10 MG TABLET PO (08:45)
[2023-07-12] MEDS: POTASSIUM CHLORIDE 20 MEQ ER TABLET PO (08:45)
[2023-07-12] MEDS: MIRABEGRON 25 MG ER TABLET PO (08:45)
[2023-07-12] MEDS: FLUTICASONE PROPIONATE 0.05% NA SPR 16 GM BTL (*BKC) 2 SPRAY NASAL (08:46)
[2023-07-12 09:01] LABS: Anisocytosis 1+ (NORMAL); Hypochromasia 1+ (NORMAL); Platelet Estimate Adequate (Adequate); Schistocytes None Seen (NORMAL)
[2023-07-12] MEDS: FAMOTIDINE 20 MG TABLET PO (11:00)
--- NOTE | 2023-07-12 11:28 | PM.DS ---
DS: Admitting Diagnosis Discharge Date 07/12/2023 Admitting Diagnosis abdominal pain + cough. DS: Discharge Diagnosis Discharge Diagnosis (1) Pneumonia: Code(s): J18.9 - Pneumonia, unspecified organism Status: Acute Assessment and Plan: As evidenced by abdominal CT which revealed constipation, airspace opacities of the lung bases that is consistent with PNA -bedside swallow evaluation reveals 1 episode of laryngeal penetration, follow speech recommendations -continue Bronchodilators incentive spirometry while awake. sputum culture ordered influenza/COVID/RSV negative Abx treatment: continue Augmentin pt doing better ok to dc back to facility today (2) Cough in adult: Code(s): R05.9 - Cough, unspecified Status: Chronic Assessment and Plan: Chronic in nature,-concerned for aspiration -barium swallow study revealed IMPRESSION: 1. One episode of laryngeal penetration. 2. Please refer to the speech therapy report for recommendations. Speech therapy evaluation, recommendation -continue oral feedings, patient may eat independently, ensure patient is upright and patient should remain upright at least 30 minutes following all oral intake Recommend food consistency is regular level 7 with regular/thin consistency liquids minimize distractions small bites/lips, no skilled ST recommended for swallow function at this time Continue recommended diet and speech therapy recs (3) Fall: Code(s): W19.XXXA - Unspecified fall, initial encounter Status: Acute Assessment and Plan: Patient had a ground level fall in the ED on arrival. Imaging was negative for traumatic injuries. Continue fall precautions (4) Iron deficiency anemia: Qualifiers: Iron deficiency anemia type: inadequate dietary iron intake Qualified Code(s): D50.8 - Other iron deficiency anemias Code(s): D50.9 - Iron deficiency anemia, unspecified Status: Acute Assessment and Plan: continue medication ferrous sulfate 325 mg p.o. daily No change to current treatment plan (5) GERD (gastroesophageal reflux disease): Qualifiers: Esophagitis presence: esophagitis presence not specified Qualified Code(s): K21.9 - Gastro-esophageal reflux disease without esophagitis Code(s): K21.9 - Gastro-esophageal reflux disease without esophagitis Status: Chronic Assessment and Plan: Continue home protonix (6) Constipation: Code(s): K59.00 - Constipation, unspecified Status: Acute Assessment and Plan: As evidence by abdominal CT scan, patient reports she is still constipated has not had a bowel movement since admission s/p docusate sodium enema given in the ed Scheduled senna Use miralax in the am Patient able to have a bowel movement on 07/09 (7) Paroxysmal atrial fibrillation: Code(s): I48.0 - Paroxysmal atrial fibrillation Status: Chronic Assessment and Plan: Continue telemetry monitoring, concurrently in sinus rhythm Continue medication diltiazem 120 mg p.o. daily Continue home medication Eliquis 5 mg b.i.d. (8) Schizoaffective disorder: Qualifiers: Schizoaffective disorder type: unspecified Qualified Code(s): F25.9 - Schizoaffective disorder, unspecified Code(s): F25.9 - Schizoaffective disorder, unspecified Status: Chronic Assessment and Plan: Continue medication donepezil 10 p.o. daily DS: Summary Hospital Course Hospital Course: Patient initially presented with abdominal pain and cough. CT a/p showed constipation and airspace opacities of the lung bases consistent with PNA. She is being treated with antibiotics and given a bowel regimen. Today, she is resting comfortably in bed. She reports persistent cough with sputum production that is very uncomfortable for her. She denies shortness of breath and chest pain. Tolerating solid food and liquids. Able to ambulate to the restroom.
[2023-07-12 11:53] LABS: Glucose Point of Care 133 mg/dl (65-105)
[2023-07-12] MEDS: polyethylene glycoL 3350 17 GM POWD.PACK PO (13:36)
[2023-07-12 14:00] VITALS: BP 137/59; PULSE 86; RESP 20; TEMP 36.3; O2SAT 98
== END 2023-07-12 15:51 | DRG 179 ==
LOC: ANHED 07-07 02:46 → ANH3MEDSUR 07-07 03:34
PROVIDERS: Nurse Practitioner; Admitting Provider Internal Medicine; Emergency Provider Emergency Medicine; PCP Hospitalist; Visit Provider Family Medicine
DX: J69.0 Pneumonitis due to inhalation of food and vomit (principal); I50.9 Heart failure, unspecified; I48.0 Paroxysmal atrial fibrillation; D50.9 Iron deficiency anemia, unspecified; E78.5 Hyperlipidemia, unspecified; E55.9 Vitamin D deficiency, unspecified; K21.9 Gastro-esophageal reflux disease without esophagitis; K59.00 Constipation, unspecified; R29.6 Repeated falls; M81.0 Age-related osteoporosis without current pathological fracture; G40.909 Epilepsy, unspecified, not intractable, without status epilepticus; G30.9 Alzheimer's disease, unspecified; F02.80 Dementia in other diseases classified elsewhere, unspecified severity, without behavioral disturbance, psychotic disturbance, mood disturbance, and anxiety; F32.A Depression, unspecified; F25.9 Schizoaffective disorder, unspecified; F41.9 Anxiety disorder, unspecified; Z96.642 Presence of left artificial hip joint; Z20.822 Contact with and (suspected) exposure to COVID-19; Z79.01 Long term (current) use of anticoagulants; Z87.891 Personal history of nicotine dependence; Z79.82 Long term (current) use of aspirin
CPT/HCPCS: 36415; 70450; 71045; 72125; 74177; 80053; 81003; 82948; 83605; 83690; 83735; 84145; 84484; 85025; 85610; 85730; 87449; 87637; 87899; 92610; 92611; 93005; 94667; 96361; 96365; 96366; 96367; 96375; 97161; 97530; 99285; A9270; G0378; J0456; J0696; J2270; J2405; J7030; J7120; Q9967

== ENCOUNTER 2023-07-13 08:42 | Emergency (ER) | payer MEDICARE, SELFPAY ==
[2023-07-13] VITALS (7 sets, daily range): BP systolic 118–142; BP diastolic 64–97; PULSE 73–84; RESP 19–26; TEMP 36.8; O2SAT 95–100
--- NOTE | ~2023-07-13 | XR_ITS ---
EXAMINATION: XR chest 1V portable INDICATION: Weakness TECHNIQUE: Portable AP chest at 0949 hours COMPARISON: 07/06/2023 FINDINGS: There is a large hiatal hernia. Left basilar airspace opacities persist but have improved, likely reflecting passive atelectasis from the hiatal hernia. No pleural effusion or pneumothorax. Th e heart size is normal. There is a moderate volume of contrast material in the colon from prior modif ied barium swallow. IMPRESSION: 1. Large hiatal hernia with associated left basilar atelectasis. Reviewed, dictated and finalized at location L. [employer]
--- NOTE | 2023-07-13 08:49 | ED.SOB ---
HPI - SOB/Dyspnea General Chief Complaint: Shortness of Breath/Dyspnea Stated Complaint: weak, dyspnea, low o2 Time Seen by Provider: 07/13/23 08:51 Source: patient Mode of arrival: ambulatory Limitations: no limitations History of Present Illness HPI Narrative: Kenton is an 82-year-old female patient presenting to the ER today with complaints of weakness, dyspnea, and low oxygen level. At the time of visit patient is not showing any signs of respiratory distress and oxygen level was 100% on room air. Patient is unable to verbalize as to why she is in the ER today. She is alert oriented x1. Had recent CT scan of her head on July 06 and showed no intracranial hemorrhage, mass, or acute infarct. Chronic left parietal infarct. Atrophy and chronic white matter changes. Patient does not report any shortness of breath at this time and is unaware of why she is in the ER today. [employer] where she is that she states I do not know however I was supposed to be in the hospital. Patient is coughing up phlegm. History of schizoaffective disorder, Alzheimer's disease, seizures, frequent UTIs, AFib, pneumonia. Patient is on Eliquis for her AFib. Patient was just discharged from the hospital yesterday. Related Data Home Medications Medication Instructions Recorded Confirmed aspirin 81 mg tablet,delayed 81 mg PO DAILY 03/20/19 07/07/23 release atorvastatin 10 mg tablet 10 mg PO DAILY 03/20/19 07/07/23 cholecalciferol (vitamin D3) 1,250 50,000 unit PO WEEKLY 03/20/19 07/07/23 mcg (50,000 unit) tablet cyanocobalamin (vitamin B-12) 1,000 mcg PO DAILY 03/20/19 07/07/23 1,000 mcg capsule donepezil 10 mg tablet 10 mg PO HS 03/20/19 07/07/23 polyethylene glycol 3350 17 17 g PO DAILY PRN Constipation 03/20/19 07/07/23 gram/dose oral powder (Miralax) duloxetine 60 mg capsule,delayed 60 mg PO DAILY 07/16/21 07/07/23 release famotidine 20 mg disintegrating 20 mg PO BID 07/16/21 07/07/23 tablet lamotrigine 100 mg tablet 100 mg PO DAILY 07/16/21 07/07/23 levetiracetam 250 mg tablet 250 mg PO BID 07/16/21 07/07/23 (Keppra) loratadine 10 mg tablet (Allergy 10 mg PO DAILY 07/16/21 07/07/23 Relief (loratadine)) melatonin 3 mg tablet 3 mg PO HS 07/16/21 07/07/23 pantoprazole 40 mg tablet,delayed 20 mg PO DAILY 07/16/21 07/07/23 release cranberry fruit 450 mg tablet 450 mg PO DAILY 04/05/22 07/07/23 (cranberry) fluticasone propionate 50 2 spray intranasal DAILY 04/05/22 07/07/23 mcg/actuation nasal spray,suspension (Allergy Relief (fluticasone)) mirabegron 25 mg tablet,extended 25 mg PO DAILY 04/05/22 07/07/23 release 24 hr (Myrbetriq) Marisol-Tussin 5 ml PO Q6H PRN Congestion 09/13/22 07/07/23 acetaminophen 325 mg tablet 650 mg PO Q4H PRN Pain (Scale 09/13/22 07/07/23 Score 1-3) lorazepam 0.5 mg tablet 0.5 mg PO DAILY 09/13/22 07/07/23 magnesium oxide 1 tablet PO DAILY 09/13/22 07/07/23 potassium chloride 20 mEq 20 meq PO BID 09/13/22 07/07/23 tablet,extended release(part/cryst) (Klor-Con M) sennosides 8.6 mg-docusate sodium 1 tab-cap PO DAILY 06/06/23 07/07/23 50 mg tablet (Senna Plus) Allergies Allergy/AdvReac Type Severity Reaction Status Date / Time sertraline Allergy Severe Unknown Verified 07/06/23 22:16 hydromorphone Allergy Intermediate Unknown Verified 07/06/23 22:16 Review of Systems Review of Systems: Pertinent positives per HPI. Patient denies any fever, chills, rash, headache, visual changes, dizziness,shortness of breath, chest pain, palpitations, nausea, vomiting, diarrhea, constipation, abdominal pain, or any urinary issues. [facility] Past Medical History Medical History Alzheimers disease Anxiety Chronic anticoagulation Congestive heart failure Dementia Follows with neurologist, Dr. Galindo. Depression Essential hypertension Frequent urinary tract infections With history of ESBL E coli infection March 2018 Gastroesophageal re
--- NOTE | 2023-07-13 09:08 | ECG_ITS ---
Measurements Intervals [place] Rate: 72 P: -12 [place]: 169 QRS: -10 QRSD: 129 T: 54 QT: 429 QTc: 472 Interpretive Statements SINUS RHYTHM WITH SINUS ARRHYTHMIA LEFT BUNDLE BRANCH BLOCK BASELINE ARTIFACT- I, III, AVR, AVL, V1, V6 ABNORMAL ECG COMPARED TO ECG 07/06/2023 23:05:33 NO SIGNIFICANT CHANGES Electronically Signed On 07-13-2023 9:24:35 [employer]ATIONS [employer] by Vladimir Sosa D.O.
[2023-07-13 09:46] LABS: Basophils Percent Auto 0.4 % (0.2-1.2); Eosinophils Absolute Auto 0.2 K/mm3 (0-0.3); Eosinophils Percent Auto 2.1 % (0-4.4); Hematocrit 34.2 % (37.0-47.0); Hemoglobin 11.1 g/dL (12.0-15.0); Immature Granulocyte Absolute 0.03 K/mm3 (0.00-0.031); Immature Granulocyte Percent A 0.4 % (0-0.5); Lymphocytes Absolute Auto 2.54 K/mm3 (0.9-3.2); Lymphocytes Percent Auto 36.2 % (18.3-44.2); Mean Corpuscular HGB Conc 32.5 g/dl (32-36); Mean Corpuscular Hemoglobin 33.1 pg (26-34); Mean Corpuscular Volume 102.1 fl (80-100); Mean Platelet Volume 9.3 fl (7.4-10.4); Monocytes Absolute Auto 0.4 K/mm3 (0.1-0.6); Monocytes Percent Auto 5.4 % (2.6-8.5); Neutrophils Absolute Auto 3.9 K/mm3 (1.3-6.7); Neutrophils Percent Auto 55.5 % (45.5-73.1); Platelet Count Result 433 k/mm3 (150-375); Red Blood Count 3.35 M/mm3 (4.2-5.4); Red Cell Distribution Width 14.3 % (11.5-14.5)
[2023-07-13 09:57] LABS: Alanine Aminotransferase 17 U/L (6-35); Albumin Level 4.2 g/dL (3.5-5.1); Alkaline Phosphatase 118 U/L (38-126); Anion Gap 9 mmol/L (8-16); Aspartate Amino Transferase 31 U/L (14-36); Bilirubin,Total 0.8 mg/dL (0.2-1.3); Blood Urea Nitrogen 14 mg/dL (7-17); Carbon Dioxide 24 mmol/L (22-30); Chloride 102 mmol/L (98-107); Estimated CRCL calculation 27 ml/min; Estimated Glomerular Filt Rate 43; Glucose 89 mg/dL (65-110); Potassium 4.6 mmol/L (3.4-5.0); Sodium 135 mmol/L (137-145)
[2023-07-13 09:57] LABS: INR 1.3; Prothrombin Time 17.4 Seconds (11.1-14.7)
[2023-07-13 09:58] LABS: Partial Thromboplastin Time 34.2 SECONDS (22.3-36.8)
[2023-07-13 10:09] LABS: NT Pro B Type Natriuretic Pept 162 pg/mL (19.9-100); Troponin I < 0.012 ng/mL (0.000-0.034)
[2023-07-13 10:22] LABS: Influenza A QL RT-PCR Negative (Negative); Influenza B QL RT-PCR Negative (Negative); RSV RNA, RT-PCR Negative (Negative); SARS-CoV-2 RNA PCR Negative (Negative)
[2023-07-13 10:41] LABS: Appearance Urine Clear (Clear); Bacteria Urine None Seen /hpf; Bilirubin Urine Negative (Negative); Blood Urine Negative (Negative); Color Urine Yellow (Yellow); Glucose Urine UA Negative (Negative); Ketones Urine Negative (Negative); Leukocyte Esterase Ur Trace LEU/UL (Negative); Nitrate Urine Negative (Negative); Non Pathogenic Casts 0-2; Protein Urine Negative (Negative); RBC Urine 0-2 /hpf (0-2); Specific Grav Ur 1.005 (1.001-1.035); Squamous Epithelial Cell Urine None seen /hpf (Few); Urobilinogen Urine 0.2 mg/dL (<2.0); WBC Urine 0-5 /hpf; pH Urine >=9.0 (5.0-9.0)
[2023-07-13 10:57] LABS: Add Urine Microscopic? YES
== END 2023-07-13 12:42 ==
PROVIDERS: Emergency Provider Nurse Practitioner Family; PCP Hospitalist
DX: D50.9 Iron deficiency anemia, unspecified (principal); K02.9 Dental caries, unspecified; I11.0 Hypertensive heart disease with heart failure; I50.9 Heart failure, unspecified; G30.9 Alzheimer's disease, unspecified; F02.80 Dementia in other diseases classified elsewhere, unspecified severity, without behavioral disturbance, psychotic disturbance, mood disturbance, and anxiety; E78.5 Hyperlipidemia, unspecified; I48.0 Paroxysmal atrial fibrillation; F17.210 Nicotine dependence, cigarettes, uncomplicated; Z20.822 Contact with and (suspected) exposure to COVID-19
CPT/HCPCS: 36415; 71045; 80053; 81001; 83880; 84484; 85025; 85610; 85730; 87637; 93005; 99284

== ENCOUNTER 2023-08-03 20:24 | Emergency (ER) | payer MEDICARE, SELFPAY ==
--- NOTE | ~2023-08-03 | XR_ITS ---
EXAMINATION: XR chest 1V portable Exam Date/Time: 08/03/2023 20:45 CDT HISTORY: SOB Comparison: 07/13/2023. RESULT: Lines, tubes, and devices: None. Lungs and pleura: Clear. Cardiomediastinal silhouette: Stable. Hiatal hernia. Other: No acute osseous or upper abdominal finding. IMPRESSION: No acute cardiopulmonary process. Reviewed, dictated and finalized at location K.
[2023-08-03 20:21] VITALS: BP 153/67; PULSE 67; RESP 21; TEMP 36.6; O2SAT 99
--- NOTE | 2023-08-03 20:41 | ECG_ITS ---
Measurements Intervals [place] Rate: 65 P: 21 [place]: 187 QRS: -23 QRSD: 141 T: 79 QT: 444 QTc: 462 Interpretive Statements SINUS RHYTHM LEFT BUNDLE BRANCH BLOCK BASELINE ARTIFACT- I, II, III, AVR, AVL ABNORMAL ECG COMPARED TO ECG 07/13/2023 08:54:12 NO SIGNIFICANT CHANGES Electronically Signed On 08-04-2023 6:24:06 CDT by Vladimir Sosa D.O.
--- NOTE | 2023-08-03 20:42 | ED.GENADULT ---
HPI - General Adult General Chief complaint: Upper Respiratory Infection Stated complaint: PAINFUL COUGH, RECENT PNE Dx Time Seen by Provider: 08/03/23 20:29 History of Present Illness HPI narrative: Patient is an 82-year-old female who presents to the emergency department this evening complaining of cough, shortness of breath and jaw pain. Patient was recently diagnosed and treated for pneumonia. But the time I evaluated the patient, patient denied any jaw pain. She is currently denying any chest, any abdominal pain, nausea vomiting, or any urinary symptoms. Patient also denies any fevers or chills, headaches, dizziness, lightheadedness, focal weakness, numbness and aching. There are no other modifying, alleviating, or precipitating factors at this time. Related Data Home Medications Medication Instructions Recorded Confirmed aspirin 81 mg tablet,delayed 81 mg PO DAILY 03/20/19 07/07/23 release atorvastatin 10 mg tablet 10 mg PO DAILY 03/20/19 07/07/23 cholecalciferol (vitamin D3) 1,250 50,000 unit PO WEEKLY 03/20/19 07/07/23 mcg (50,000 unit) tablet cyanocobalamin (vitamin B-12) 1,000 mcg PO DAILY 03/20/19 07/07/23 1,000 mcg capsule donepezil 10 mg tablet 10 mg PO HS 03/20/19 07/07/23 polyethylene glycol 3350 17 17 g PO DAILY PRN Constipation 03/20/19 07/07/23 gram/dose oral powder (Miralax) duloxetine 60 mg capsule,delayed 60 mg PO DAILY 07/16/21 07/07/23 release famotidine 20 mg disintegrating 20 mg PO BID 07/16/21 07/07/23 tablet lamotrigine 100 mg tablet 100 mg PO DAILY 07/16/21 07/07/23 levetiracetam 250 mg tablet 250 mg PO BID 07/16/21 07/07/23 (Keppra) loratadine 10 mg tablet (Allergy 10 mg PO DAILY 07/16/21 07/07/23 Relief (loratadine)) melatonin 3 mg tablet 3 mg PO HS 07/16/21 07/07/23 pantoprazole 40 mg tablet,delayed 20 mg PO DAILY 07/16/21 07/07/23 release cranberry fruit 450 mg tablet 450 mg PO DAILY 04/05/22 07/07/23 (cranberry) fluticasone propionate 50 2 spray intranasal DAILY 04/05/22 07/07/23 mcg/actuation nasal spray,suspension (Allergy Relief (fluticasone)) mirabegron 25 mg tablet,extended 25 mg PO DAILY 04/05/22 07/07/23 release 24 hr (Myrbetriq) Marisol-Tussin 5 ml PO Q6H PRN Congestion 09/13/22 07/07/23 acetaminophen 325 mg tablet 650 mg PO Q4H PRN Pain (Scale 09/13/22 07/07/23 Score 1-3) lorazepam 0.5 mg tablet 0.5 mg PO DAILY 09/13/22 07/07/23 magnesium oxide 1 tablet PO DAILY 09/13/22 07/07/23 potassium chloride 20 mEq 20 meq PO BID 09/13/22 07/07/23 tablet,extended release(part/cryst) (Klor-Con M) sennosides 8.6 mg-docusate sodium 1 tab-cap PO DAILY 06/06/23 07/07/23 50 mg tablet (Senna Plus) Allergies Allergy/AdvReac Type Severity Reaction Status Date / Time sertraline Allergy Severe Unknown Verified 07/06/23 22:16 hydromorphone Allergy Intermediate Unknown Verified 07/06/23 22:16 Review of Systems Review of Systems: All systems are reviewed and are negative unless stated otherwise in the HPI. [facility] Past Medical History Medical History Alzheimers disease Anxiety Chronic anticoagulation Congestive heart failure Dementia Follows with neurologist, Dr. Galindo. 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 Osteoporosis Paroxysmal atrial fibrillation Pneumonia due to COVID-19 virus Schizoaffective disorder Seizure disorder Thoracic compression fracture T10 Vitamin D deficiency Surgical History Surgical History History of arthroscopy of left shoulder History of bladder suspension procedure History of hysterectomy History of total left hip arthroplasty (2015) Family History Family History (Re
[2023-08-03 20:59] VITALS: O2SAT 99
[2023-08-03 21:01] LABS: Basophils Percent Auto 0.3 % (0.2-1.2); Eosinophils Absolute Auto 0.3 K/mm3 (0-0.3); Eosinophils Percent Auto 4.8 % (0-4.4); Immature Granulocyte Absolute 0.02 K/mm3 (0.00-0.031); Immature Granulocyte Percent A 0.3 % (0-0.5); Lymphocytes Absolute Auto 2.54 K/mm3 (0.9-3.2); Lymphocytes Percent Auto 41.6 % (18.3-44.2); Mean Corpuscular HGB Conc 31.4 g/dl (32-36); Mean Corpuscular Hemoglobin 32.3 pg (26-34); Mean Corpuscular Volume 102.6 fl (80-100); Mean Platelet Volume 9.6 fl (7.4-10.4); Monocytes Absolute Auto 0.4 K/mm3 (0.1-0.6); Monocytes Percent Auto 5.7 % (2.6-8.5); Neutrophils Absolute Auto 2.9 K/mm3 (1.3-6.7); Neutrophils Percent Auto 47.3 % (45.5-73.1); Platelet Count Result 256 k/mm3 (150-375); Red Blood Count 3.41 M/mm3 (4.2-5.4); Red Cell Distribution Width 13.8 % (11.5-14.5); White Blood Count 6.1 K/mm3 (4.5-10.0)
[2023-08-03 21:11] LABS: Alanine Aminotransferase 21 U/L (6-35); Alkaline Phosphatase 87 U/L (38-126); Anion Gap 5 mmol/L (4-12); Aspartate Amino Transferase 36 U/L (14-36); Bilirubin,Total 0.7 mg/dL (0.2-1.3); Blood Urea Nitrogen 13 mg/dL (7-17); Calcium 9.8 mg/dL (8.4-10.2); Carbon Dioxide 26 mmol/L (22-30); Chloride 104 mmol/L (98-107); Estimated CRCL calculation 28 ml/min; Estimated Glomerular Filt Rate 47; Glucose 87 mg/dL (65-110); Potassium 3.9 mmol/L (3.4-5.0); Sodium 135 mmol/L (137-145)
[2023-08-03 21:17] LABS: Atypical Lymphocytes Present; Platelet Estimate Adequate (Adequate); Schistocytes None Seen
[2023-08-03 21:19] LABS: INR 1.7; Prothrombin Time 20.6 Seconds (11.1-14.7)
[2023-08-03 21:20] LABS: Partial Thromboplastin Time 38.1 Seconds (22.3-36.8)
[2023-08-03 21:22] LABS: NT Pro B Type Natriuretic Pept 184 pg/mL (19.9-100); Troponin I < 0.012 ng/mL (0.000-0.034)
[2023-08-03 21:40] LABS: Influenza A QL RT-PCR Negative (Negative); Influenza B QL RT-PCR Negative (Negative); RSV RNA, RT-PCR Negative (Negative); SARS-CoV-2 RNA PCR Negative (Negative)
[2023-08-03 23:30] VITALS: BP 117/82; PULSE 62; RESP 18; O2SAT 97
[2023-08-04 00:51] LABS: Troponin I < 0.012 ng/mL (0.000-0.034)
[2023-08-04 01:09] VITALS: BP 156/55; PULSE 62; RESP 15; O2SAT 98
== END 2023-08-04 02:30 ==
PROVIDERS: Emergency Provider Emergency Medicine; PCP Hospitalist
DX: R06.02 Shortness of breath (principal); Z20.822 Contact with and (suspected) exposure to COVID-19; G30.9 Alzheimer's disease, unspecified; F02.80 Dementia in other diseases classified elsewhere, unspecified severity, without behavioral disturbance, psychotic disturbance, mood disturbance, and anxiety; I50.9 Heart failure, unspecified; I11.0 Hypertensive heart disease with heart failure; I48.0 Paroxysmal atrial fibrillation; G40.909 Epilepsy, unspecified, not intractable, without status epilepticus; E78.5 Hyperlipidemia, unspecified; E55.9 Vitamin D deficiency, unspecified; K21.9 Gastro-esophageal reflux disease without esophagitis; M81.0 Age-related osteoporosis without current pathological fracture; F32.A Depression, unspecified; F25.9 Schizoaffective disorder, unspecified; Z66 Do not resuscitate; Z96.642 Presence of left artificial hip joint; Z86.16 Personal history of COVID-19; Z87.01 Personal history of pneumonia (recurrent); Z87.891 Personal history of nicotine dependence; Z90.710 Acquired absence of both cervix and uterus; Z79.82 Long term (current) use of aspirin; Z79.01 Long term (current) use of anticoagulants; I44.7 Left bundle-branch block, unspecified
CPT/HCPCS: 36415; 71045; 80053; 83880; 84484; 85025; 85610; 85730; 87637; 93005; 99284

== ENCOUNTER 2023-09-18 13:31 | Emergency (ER) | payer MEDICARE, SELFPAY ==
[2023-09-18] VITALS (9 sets, daily range): BP systolic 135–162; BP diastolic 61–78; PULSE 67–88; RESP 18–20; TEMP 36.1–36.8; O2SAT 95–100
--- NOTE | ~2023-09-18 | XR_ITS ---
EXAMINATION: XR chest 2V Exam Date/Time: 09/18/2023 14:55 CDT HISTORY: worsening cough X 2-3 MONTHS Comparison: 07/26/2023; CT chest 06/09/2023. RESULT: Lines, tubes, and devices: None. Lungs and pleura: Low volumes with crowding. Otherwise clear. Cardiomediastinal silhouette: Stable. Hiatal hernia. Other: No acute osseous or upper abdominal finding. Stable severe compression deformity at L1, with vertebroplasty cement. Stable multilevel concave osteoporotic type endplate defects. IMPRESSION: No acute cardiopulmonary process. Reviewed, dictated and finalized at location K.
--- NOTE | ~2023-09-18 | CT_ITS ---
EXAMINATION:CT diagnostic chest wo con DATE: 09/18/2023 15:41 INDICATION: Cough. TECHNIQUE: Computed tomography (CT) of the chest was performed without intravenous contrast. Automate d exposure control and iterative reconstruction technique were employed. The dose-length product (DLP ) was 277.68 mGy-cm. COMPARISON: Chest CT 06/09/2023 FINDINGS: There is mild scarring at the lung apices. There is mild atelectasis bilaterally. A calcifi ed left lung nodule and calcified left hilar lymph nodes are consistent with old granulomatous diseas e. No pleural effusion. There is a 12 mm nodule in left thyroid lobe, likely not clinically significa nt. There is an aberrant right subclavian artery. The heart size is normal. There are coronary artery calcifications. No pericardial effusion. There is a moderate-sized sliding hiatal hernia. Calcificat ions in the spleen are consistent with old granulomatous disease. There is a 1.8 cm cyst in left kidn ey. There is mild thoracic spondylosis. There are multiple chronic vertebral body fractures. There ar e changes of vertebroplasty at L1. IMPRESSION: 1. Moderate-sized sliding hiatal hernia. Reviewed, dictated and finalized at location A.
--- NOTE | 2023-09-18 14:07 | ECG_ITS ---
SEE SCANNED COPY FOR CONFIRMED REPORT MTDD
--- NOTE | 2023-09-18 14:09 | ED.SOB ---
HPI - SOB/Dyspnea General Chief Complaint: Shortness of Breath/Dyspnea Stated Complaint: sob Time Seen by Provider: 09/18/23 13:42 Source: patient, RN notes reviewed and old records reviewed Mode of arrival: EMS History of Present Illness HPI Narrative: This is an 82 year female who presents for evaluation of cough. She states she was diagnosed with pneumonia 4 months ago. She has continued to have a cough and it has gotten worsen. She also reports shortness of breath. She denies fever or chills. She is unsure of last dose of antibiotics. It appears she has been to hospital multiple times since initial diagnosis to be evaluated for this cough., Related Data Home Medications Medication Instructions Recorded Confirmed aspirin 81 mg tablet,delayed 81 mg PO DAILY 03/20/19 07/07/23 release atorvastatin 10 mg tablet 10 mg PO DAILY 03/20/19 07/07/23 cholecalciferol (vitamin D3) 1,250 50,000 unit PO WEEKLY 03/20/19 07/07/23 mcg (50,000 unit) tablet cyanocobalamin (vitamin B-12) 1,000 mcg PO DAILY 03/20/19 07/07/23 1,000 mcg capsule donepezil 10 mg tablet 10 mg PO HS 03/20/19 07/07/23 polyethylene glycol 3350 17 17 g PO DAILY PRN Constipation 03/20/19 07/07/23 gram/dose oral powder (Miralax) duloxetine 60 mg capsule,delayed 60 mg PO DAILY 07/16/21 07/07/23 release famotidine 20 mg disintegrating 20 mg PO BID 07/16/21 07/07/23 tablet lamotrigine 100 mg tablet 100 mg PO DAILY 07/16/21 07/07/23 levetiracetam 250 mg tablet 250 mg PO BID 07/16/21 07/07/23 (Keppra) loratadine 10 mg tablet (Allergy 10 mg PO DAILY 07/16/21 07/07/23 Relief (loratadine)) melatonin 3 mg tablet 3 mg PO HS 07/16/21 07/07/23 pantoprazole 40 mg tablet,delayed 20 mg PO DAILY 07/16/21 07/07/23 release cranberry fruit 450 mg tablet 450 mg PO DAILY 04/05/22 07/07/23 (cranberry) fluticasone propionate 50 2 spray intranasal DAILY 04/05/22 07/07/23 mcg/actuation nasal spray,suspension (Allergy Relief (fluticasone)) mirabegron 25 mg tablet,extended 25 mg PO DAILY 04/05/22 07/07/23 release 24 hr (Myrbetriq) Marisol-Tussin 5 ml PO Q6H PRN Congestion 09/13/22 07/07/23 acetaminophen 325 mg tablet 650 mg PO Q4H PRN Pain (Scale 09/13/22 07/07/23 Score 1-3) lorazepam 0.5 mg tablet 0.5 mg PO DAILY 09/13/22 07/07/23 magnesium oxide 1 tablet PO DAILY 09/13/22 07/07/23 potassium chloride 20 mEq 20 meq PO BID 09/13/22 07/07/23 tablet,extended release(part/cryst) (Klor-Con M) sennosides 8.6 mg-docusate sodium 1 tab-cap PO DAILY 06/06/23 07/07/23 50 mg tablet (Senna Plus) Allergies Allergy/AdvReac Type Severity Reaction Status Date / Time sertraline Allergy Severe Unknown Verified 07/06/23 22:16 hydromorphone Allergy Intermediate Unknown Verified 07/06/23 22:16 Review of Systems Constitutional: Constitutional: Denies weakness Cardiovascular: Cardiovascular: Denies syncope, Denies rapid heart rate, Denies irregular heart rhythm, Denies leg edema and Reports dyspnea Respiratory: Respiratory: Reports chest congestion, Reports cough, Denies hemoptysis, Denies excessive phlegm production and Reports dyspnea Gastrointestinal: Gastrointestinal: Denies abdominal pain, Denies hematochezia, Denies diarrhea and Denies vomiting Genitourinary: Genitourinary: Denies hematuria and Denies dysuria Musculoskeletal: Musculoskeletal: Denies joint swelling, Denies loss of height and Denies muscle weakness Neurologic: Denies syncope, Denies focal weakness and Denies weakness PMFSH Past Medical History Medical History Alzheimers disease Anxiety Chronic anticoagulation Congestive heart failure Dementia Follows with neurologist, Dr. Galindo. 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
[2023-09-18 14:43] LABS: Basophils Percent Auto 0.3 % (0.2-1.2); Eosinophils Absolute Auto 0.3 K/mm3 (0-0.3); Eosinophils Percent Auto 4.3 % (0-4.4); Hematocrit 38.2 % (37.0-47.0); Hemoglobin 12.4 g/dL (12.0-15.0); Immature Granulocyte Absolute 0.01 K/mm3 (0.00-0.031); Immature Granulocyte Percent A 0.2 % (0-0.5); Lymphocytes Percent Auto 34.4 % (18.3-44.2); Mean Corpuscular HGB Conc 32.5 g/dl (32-36); Mean Corpuscular Hemoglobin 32.3 pg (26-34); Mean Corpuscular Volume 99.5 fl (80-100); Mean Platelet Volume 9.6 fl (7.4-10.4); Monocytes Absolute Auto 0.5 K/mm3 (0.1-0.6); Monocytes Percent Auto 8.1 % (2.6-8.5); Neutrophils Absolute Auto 3.1 K/mm3 (1.3-6.7); Neutrophils Percent Auto 52.7 % (45.5-73.1); Platelet Count Result 256 k/mm3 (150-375); Red Blood Count 3.84 M/mm3 (4.2-5.4); White Blood Count 5.8 K/mm3 (4.5-10.0)
[2023-09-18 14:53] LABS: Alanine Aminotransferase 14 U/L (6-35); Albumin Level 4.5 g/dL (3.5-5.1); Alkaline Phosphatase 102 U/L (38-126); Anion Gap 9 mmol/L (4-12); Aspartate Amino Transferase 26 U/L (14-36); Bilirubin,Total 0.6 mg/dL (0.2-1.3); Blood Urea Nitrogen 19 mg/dL (7-17); Calcium 9.8 mg/dL (8.4-10.2); Carbon Dioxide 30 mmol/L (22-30); Chloride 100 mmol/L (98-107); Estimated CRCL calculation 28 ml/min; Estimated Glomerular Filt Rate 47; Glucose 88 mg/dL (65-110); Potassium 3.6 mmol/L (3.4-5.0); Sodium 139 mmol/L (137-145)
[2023-09-18 15:07] LABS: NT Pro B Type Natriuretic Pept 116 pg/mL (19.9-100); Troponin I < 0.012 ng/mL (0.000-0.034)
[2023-09-18 15:21] LABS: Influenza A QL RT-PCR Negative (Negative); Influenza B QL RT-PCR Negative (Negative); RSV RNA, RT-PCR Negative (Negative); SARS-CoV-2 RNA PCR Negative (Negative)
== END 2023-09-18 17:57 ==
PROVIDERS: Emergency Provider General Practice; PCP Hospitalist
DX: R05.9 Cough, unspecified (principal); Z20.822 Contact with and (suspected) exposure to COVID-19; G30.9 Alzheimer's disease, unspecified; F02.80 Dementia in other diseases classified elsewhere, unspecified severity, without behavioral disturbance, psychotic disturbance, mood disturbance, and anxiety; I50.9 Heart failure, unspecified; I48.0 Paroxysmal atrial fibrillation; I11.0 Hypertensive heart disease with heart failure; E78.5 Hyperlipidemia, unspecified; E55.9 Vitamin D deficiency, unspecified; G40.909 Epilepsy, unspecified, not intractable, without status epilepticus; K21.9 Gastro-esophageal reflux disease without esophagitis; M81.0 Age-related osteoporosis without current pathological fracture; Z66 Do not resuscitate; Z96.642 Presence of left artificial hip joint; Z87.01 Personal history of pneumonia (recurrent); Z86.16 Personal history of COVID-19; Z87.891 Personal history of nicotine dependence; Z79.82 Long term (current) use of aspirin; Z79.01 Long term (current) use of anticoagulants; Z90.710 Acquired absence of both cervix and uterus; K44.9 Diaphragmatic hernia without obstruction or gangrene; I44.7 Left bundle-branch block, unspecified
CPT/HCPCS: 36415; 71046; 71250; 80053; 83880; 84484; 85025; 87637; 93005; 99284

== ENCOUNTER 2023-10-21 12:39 | Emergency (ER) | payer MEDICARE, SELFPAY ==
[2023-10-21 12:55] VITALS: O2SAT 99
[2023-10-21 12:56] VITALS: BP 131/59; PULSE 81; RESP 16; TEMP 36.9; O2SAT 96
[2023-10-21 13:45] VITALS: BP 124/63; O2SAT 100
[2023-10-21 13:51] LABS: Basophils Percent Auto 0.5 % (0.2-1.2); Eosinophils Absolute Auto 0.1 K/mm3 (0-0.3); Hematocrit 40.3 % (37.0-47.0); Hemoglobin 13.1 g/dL (12.0-15.0); Immature Granulocyte Absolute 0.03 K/mm3 (0.00-0.031); Immature Granulocyte Percent A 0.5 % (0-0.5); Lymphocytes Absolute Auto 1.65 K/mm3 (0.9-3.2); Lymphocytes Percent Auto 25.6 % (18.3-44.2); Mean Corpuscular HGB Conc 32.5 g/dl (32-36); Mean Corpuscular Hemoglobin 32.3 pg (26-34); Mean Corpuscular Volume 99.3 fl (80-100); Mean Platelet Volume 9.5 fl (7.4-10.4); Monocytes Absolute Auto 0.5 K/mm3 (0.1-0.6); Monocytes Percent Auto 7.3 % (2.6-8.5); Neutrophils Absolute Auto 4.1 K/mm3 (1.3-6.7); Neutrophils Percent Auto 64.1 % (45.5-73.1); Platelet Count Result 243 k/mm3 (150-375); Red Blood Count 4.06 M/mm3 (4.2-5.4); Red Cell Distribution Width 13.9 % (11.5-14.5); White Blood Count 6.5 K/mm3 (4.5-10.0)
[2023-10-21 14:09] LABS: Alanine Aminotransferase 14 U/L (6-35); Albumin Level 4.4 g/dL (3.5-5.1); Alkaline Phosphatase 94 U/L (38-126); Anion Gap 8 mmol/L (4-12); Aspartate Amino Transferase 27 U/L (14-36); Bilirubin,Total 0.9 mg/dL (0.2-1.3); Blood Urea Nitrogen 18 mg/dL (7-17); Calcium 9.4 mg/dL (8.4-10.2); Carbon Dioxide 28 mmol/L (22-30); Chloride 103 mmol/L (98-107); Estimated CRCL calculation 26 ml/min; Estimated Glomerular Filt Rate 43; Glucose 108 mg/dL (65-110); Potassium 4.1 mmol/L (3.4-5.0); Sodium 139 mmol/L (137-145)
[2023-10-21 14:47] LABS: Appearance Urine Clear (Clear); Bacteria Urine None Seen /hpf; Bilirubin Urine Negative (Negative); Blood Urine Negative (Negative); Color Urine Yellow (Yellow); Glucose Urine UA Negative (Negative); Ketones Urine Negative (Negative); Leukocyte Esterase Ur 2+ LEU/UL (Negative); Nitrate Urine Negative (Negative); Non Pathogenic Casts 0-2; Protein Urine Negative (Negative); RBC Urine 0-2 /hpf (0-2); Specific Grav Ur 1.005 (1.001-1.035); Squamous Epithelial Cell Urine None Seen /hpf (Few); Urobilinogen Urine 0.2 mg/dL (<2.0); WBC Urine 21-50 /hpf (0-3); pH Urine 6.5 (5.0-9.0)
[2023-10-21 14:51] LABS: Add Urine Microscopic? YES
--- NOTE | 2023-10-21 15:31 | ED.AMS ---
HPI - Altered Mental Status General Chief Complaint: Altered Mental Status Stated Complaint: confusion Time Seen by Provider: 10/21/23 13:12 History of Present Illness HPI narrative: patient is an 82-year-old female who presents ER with her family for mild confusion. Family concerned may be related to UTI. No reports of fevers or chills. Patient has not fallen. Focal weakness. They deny that she has history of dementia but she is on donepezil And is in her chart that she is in fact demented. Related Data Home Medications Medication Instructions Recorded Confirmed aspirin 81 mg tablet,delayed 81 mg PO DAILY 03/20/19 07/07/23 release atorvastatin 10 mg tablet 10 mg PO DAILY 03/20/19 07/07/23 cholecalciferol (vitamin D3) 1,250 50,000 unit PO WEEKLY 03/20/19 07/07/23 mcg (50,000 unit) tablet cyanocobalamin (vitamin B-12) 1,000 mcg PO DAILY 03/20/19 07/07/23 1,000 mcg capsule donepezil 10 mg tablet 10 mg PO HS 03/20/19 07/07/23 polyethylene glycol 3350 17 17 g PO DAILY PRN Constipation 03/20/19 07/07/23 gram/dose oral powder (Miralax) duloxetine 60 mg capsule,delayed 60 mg PO DAILY 07/16/21 07/07/23 release famotidine 20 mg disintegrating 20 mg PO BID 07/16/21 07/07/23 tablet lamotrigine 100 mg tablet 100 mg PO DAILY 07/16/21 07/07/23 levetiracetam 250 mg tablet 250 mg PO BID 07/16/21 07/07/23 (Keppra) loratadine 10 mg tablet (Allergy 10 mg PO DAILY 07/16/21 07/07/23 Relief (loratadine)) melatonin 3 mg tablet 3 mg PO HS 07/16/21 07/07/23 pantoprazole 40 mg tablet,delayed 20 mg PO DAILY 07/16/21 07/07/23 release cranberry fruit 450 mg tablet 450 mg PO DAILY 04/05/22 07/07/23 (cranberry) fluticasone propionate 50 2 spray intranasal DAILY 04/05/22 07/07/23 mcg/actuation nasal spray,suspension (Allergy Relief (fluticasone)) mirabegron 25 mg tablet,extended 25 mg PO DAILY 04/05/22 07/07/23 release 24 hr (Myrbetriq) Marisol-Tussin 5 ml PO Q6H PRN Congestion 09/13/22 07/07/23 acetaminophen 325 mg tablet 650 mg PO Q4H PRN Pain (Scale 09/13/22 07/07/23 Score 1-3) lorazepam 0.5 mg tablet 0.5 mg PO DAILY 09/13/22 07/07/23 magnesium oxide 1 tablet PO DAILY 09/13/22 07/07/23 potassium chloride 20 mEq 20 meq PO BID 09/13/22 07/07/23 tablet,extended release(part/cryst) (Klor-Con M) sennosides 8.6 mg-docusate sodium 1 tab-cap PO DAILY 06/06/23 07/07/23 50 mg tablet (Senna Plus) Allergies Allergy/AdvReac Type Severity Reaction Status Date / Time sertraline Allergy Severe Unknown Verified 07/06/23 22:16 hydromorphone Allergy Intermediate Unknown Verified 07/06/23 22:16 Review of Systems Review of Systems: ROS unobtainable: Yes unobtainable due to mental status PMFSH Past Medical History Medical History Alzheimers disease Anxiety Chronic anticoagulation Congestive heart failure Dementia Follows with neurologist, Dr. Galindo. 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 Osteoporosis Paroxysmal atrial fibrillation Pneumonia due to COVID-19 virus Schizoaffective disorder Seizure disorder Thoracic compression fracture T10 Vitamin D deficiency Surgical History Surgical History History of arthroscopy of left shoulder History of bladder suspension procedure History of hysterectomy History of total left hip arthroplasty (2015) Family History Family History Sibling Dementia Cerebrovascular accident Sibling Acute myocardial infarction Mother Cirrhosis Father Emphysema of lung Social History Social History Social History: Surrog
== END 2023-10-21 15:51 | disposition home or self-care (01) ==
PROVIDERS: Emergency Provider Emergency Medicine; PCP Hospitalist
DX: G30.9 Alzheimer's disease, unspecified (principal); F02.80 Dementia in other diseases classified elsewhere, unspecified severity, without behavioral disturbance, psychotic disturbance, mood disturbance, and anxiety; I50.9 Heart failure, unspecified; I11.0 Hypertensive heart disease with heart failure; I48.0 Paroxysmal atrial fibrillation; G40.909 Epilepsy, unspecified, not intractable, without status epilepticus; E78.5 Hyperlipidemia, unspecified; E55.9 Vitamin D deficiency, unspecified; M81.0 Age-related osteoporosis without current pathological fracture; K21.9 Gastro-esophageal reflux disease without esophagitis; F25.9 Schizoaffective disorder, unspecified; F41.9 Anxiety disorder, unspecified; F32.A Depression, unspecified; Z96.642 Presence of left artificial hip joint; Z90.710 Acquired absence of both cervix and uterus; Z87.01 Personal history of pneumonia (recurrent); Z87.440 Personal history of urinary (tract) infections; Z79.82 Long term (current) use of aspirin; Z79.899 Other long term (current) drug therapy; Z79.01 Long term (current) use of anticoagulants
CPT/HCPCS: 36415; 80053; 81001; 85025; 87077; 87086; 87088; 87186; 99283

== ENCOUNTER 2024-02-14 15:47 | Emergency (ER) | payer MEDICARE, SELFPAY ==
--- NOTE | ~2024-02-14 | XR_ITS ---
XR humerus LT 02/14/2024 16:33 INDICATION: Left arm pain PROCEDURE: 2 views left humerus COMPARISON: No prior studies for comparison. FINDINGS: Fracture, dislocation or subluxation is not identified. The soft tissues appear within norm al limits. No foreign bodies are identified. IMPRESSION: 1: NO ACUTE BONE OR JOINT ABNORMALITY IDENTIFIED. Reviewed, dictated and finalized at location B.
--- NOTE | ~2024-02-14 | XR_ITS ---
EXAMINATION: XR chest 2V DATE: 02/14/2024 16:33 INDICATION: Cough. TECHNIQUE: Frontal and lateral views of the chest were obtained. COMPARISON: Chest 2 views 09/18/2023, chest CT 09/18/2023 FINDINGS: There is mild atelectasis in the lower lung zones. No pleural effusion or pneumothorax. The heart size is normal. There is a moderate-sized hiatal hernia. There are multiple chronic vertebral body fractures. There are changes of vertebroplasty at L1. IMPRESSION: 1. Mild atelectasis in the lower lung zones. 2. Moderate-sized hiatal hernia. Reviewed, dictated and finalized at location A.
--- NOTE | ~2024-02-14 | XR_ITS ---
HISTORY: trauma COMPARISON: None TECHNIQUE: 3 views of the left wrist were performed. FINDINGS: Diffuse bony demineralization is identified. Extra-articular bone formation is present, primarily within the ulna carpal joint space. Significant degenerative disease is identified within the first metacarpal metacarpal joint space, as well as within the radiocarpal, radioulnar and ulnocarpal joint space. No acute displaced fracture i s present. No significant overlying soft tissue swelling is noted. IMPRESSION: Significant degenerative disease and diffuse bony demineralization without acute displaced fracture, as detailed above. Reviewed, dictated and finalized at location A. IMPRESSION: Significant degenerative disease and diffuse bony demineralization without acut e displaced fracture, as detailed above.
--- NOTE | ~2024-02-14 | XR_ITS ---
XR elbow LT min 3V 02/14/2024 16:33 Indication: Left elbow Procedure: 3 views left elbow Comparison: No prior studies for comparison. Findings: No fracture, subluxation or dislocation. No foreign bodies. No significant joint effusion. Impression: 1: No acute bone or joint abnormality. Reviewed, dictated and finalized at location B. Impression: 1: No acute bone or joint abnormality.
[2024-02-14 15:59] VITALS: BP 147/97; PULSE 67; RESP 14; TEMP 36.5; O2SAT 100
[2024-02-14 16:00] VITALS: RESP 15; O2SAT 100
[2024-02-14] MEDS: ACETAMINOPHEN 325 MG TABLET 650 MG PO (16:57)
[2024-02-14 17:08] LABS: Basophils Percent Auto 0.4 % (0.2-1.2); Eosinophils Absolute Auto 0.2 K/mm3 (0-0.3); Eosinophils Percent Auto 2.5 % (0-4.4); Hematocrit 38.8 % (37.0-47.0); Hemoglobin 13.1 g/dL (12.0-15.0); Immature Granulocyte Absolute 0.05 K/mm3 (0.00-0.031); Immature Granulocyte Percent A 0.6 % (0-0.5); Lymphocytes Absolute Auto 1.79 K/mm3 (0.9-3.2); Lymphocytes Percent Auto 22.6 % (18.3-44.2); Mean Corpuscular HGB Conc 33.8 g/dl (32-36); Mean Corpuscular Hemoglobin 33.7 pg (26-34); Mean Corpuscular Volume 99.7 fl (80-100); Mean Platelet Volume 9.2 fl (7.4-10.4); Monocytes Absolute Auto 0.6 K/mm3 (0.1-0.6); Monocytes Percent Auto 7.1 % (2.6-8.5); Neutrophils Absolute Auto 5.3 K/mm3 (1.3-6.7); Neutrophils Percent Auto 66.8 % (45.5-73.1); Platelet Count Result 318 k/mm3 (150-375); Red Blood Count 3.89 M/mm3 (4.2-5.4); Red Cell Distribution Width 13.2 % (11.5-14.5); White Blood Count 7.9 K/mm3 (4.5-10.0)
[2024-02-14 17:20] LABS: Alanine Aminotransferase 12 U/L (6-35); Albumin Level 4.5 g/dL (3.5-5.1); Alkaline Phosphatase 107 U/L (38-126); Anion Gap 7 mmol/L (4-12); Aspartate Amino Transferase 27 U/L (14-36); Bilirubin,Total 0.7 mg/dL (0.2-1.3); Blood Urea Nitrogen 20 mg/dL (7-17); Calcium 9.4 mg/dL (8.4-10.2); Carbon Dioxide 28 mmol/L (22-30); Chloride 102 mmol/L (98-107); Estimated CRCL calculation 31 ml/min; Estimated Glomerular Filt Rate 47; Glucose 91 mg/dL (65-110); Potassium 3.9 mmol/L (3.4-5.0); Sodium 137 mmol/L (137-145)
[2024-02-14 17:45] LABS: Influenza A QL RT-PCR Negative (Negative); Influenza B QL RT-PCR Negative (Negative); RSV RNA, RT-PCR Negative (Negative); SARS-CoV-2 RNA PCR Negative (Negative)
--- NOTE | 2024-02-14 18:35 | ED.GENADULT ---
HPI - General Adult General Chief complaint: Unspecified Stated complaint: nausea Time Seen by Provider: 02/14/24 16:01 History of Present Illness HPI narrative: patient is a 83-year-old female who presents ER with cough and left wrist pain. Ongoing the last couple days. Wrist is swollen and bruised as is palm of the hand. Patient has had a postnasal drip with cough with productive clear sputum. No fevers or chills. No chest pain. Mild nausea with occasional vomiting. Has dementia so history is limited. Related Data Home Medications Medication Instructions Recorded Confirmed aspirin 81 mg tablet,delayed 81 mg PO DAILY 03/20/19 01/01/24 release cholecalciferol (vitamin D3) 1,250 50,000 unit PO WEEKLY 03/20/19 01/01/24 mcg (50,000 unit) tablet cyanocobalamin (vitamin B-12) 1,000 mcg PO DAILY 03/20/19 01/01/24 1,000 mcg capsule donepezil 10 mg tablet 10 mg PO HS 03/20/19 01/01/24 polyethylene glycol 3350 17 17 g PO DAILY PRN Constipation 03/20/19 01/01/24 gram/dose oral powder (Miralax) duloxetine 60 mg capsule,delayed 60 mg PO DAILY 07/16/21 01/01/24 release famotidine 20 mg disintegrating 20 mg PO BID 07/16/21 01/01/24 tablet lamotrigine 100 mg tablet 100 mg PO DAILY 07/16/21 01/01/24 levetiracetam 250 mg tablet 250 mg PO BID 07/16/21 01/01/24 (Keppra) loratadine 10 mg tablet (Allergy 10 mg PO DAILY 07/16/21 01/01/24 Relief (loratadine)) melatonin 3 mg tablet 3 mg PO HS 07/16/21 01/01/24 pantoprazole 40 mg tablet,delayed 20 mg PO DAILY 07/16/21 01/01/24 release cranberry fruit 450 mg tablet 450 mg PO DAILY 04/05/22 01/01/24 (cranberry) fluticasone propionate 50 2 spray intranasal DAILY 04/05/22 01/01/24 mcg/actuation nasal spray,suspension (Allergy Relief (fluticasone)) mirabegron 25 mg tablet,extended 25 mg PO DAILY 04/05/22 01/01/24 release 24 hr (Myrbetriq) Marisol-Tussin 5 ml PO Q6H PRN Congestion 09/13/22 01/01/24 acetaminophen 325 mg tablet 650 mg PO Q4H PRN Pain (Scale 09/13/22 01/01/24 Score 1-3) lorazepam 0.5 mg tablet 0.5 mg PO DAILY 09/13/22 01/01/24 magnesium oxide 1 tablet PO DAILY 09/13/22 01/01/24 potassium chloride 20 mEq 20 meq PO BID 09/13/22 01/01/24 tablet,extended release(part/cryst) (Klor-Con M) sennosides 8.6 mg-docusate sodium 1 tab-cap PO DAILY 06/06/23 01/01/24 50 mg tablet (Senna Plus) hydroxyzine HCl 25 mg tablet 25 mg PO Q6H PRN 01/01/24 01/01/24 tramadol 50 mg tablet 50 mg PO Q6H PRN 01/01/24 01/01/24 Allergies Allergy/AdvReac Type Severity Reaction Status Date / Time sertraline Allergy Severe Unknown Verified 02/14/24 15:54 hydromorphone Allergy Intermediate Unknown Verified 02/14/24 15:54 Review of Systems Review of Systems: ROS unobtainable: Yes unobtainable due to mental status PMFSH Past Medical History Medical History Alzheimers disease Anxiety Chronic anticoagulation Congestive heart failure Dementia Follows with neurologist, Dr. Galindo. 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 Osteoporosis Paroxysmal atrial fibrillation Pneumonia due to COVID-19 virus Schizoaffective disorder Seizure disorder Thoracic compression fracture T10 Vitamin D deficiency Surgical History Surgical History History of arthroscopy of left shoulder History of bladder suspension procedure History of hysterectomy History of total left hip arthroplasty (2015) Family History Family History Sibling Dementia Cerebrovascular accident Sibling Acute myocardial infarction Mother Cirrhosis Father Emphysema of lung Social History Social History (Rev
--- NOTE | 2024-02-14 19:23 | PC.NURSE ---
attempted to call report at [phone] to the pt facility with no answer
--- NOTE | 2024-02-14 19:51 | PC.NURSE ---
tried calling report to the pt facility at this time and no one answered
[2024-02-14 19:56] VITALS: BP 172/72; PULSE 77; RESP 15; TEMP 36.5; O2SAT 98
== END 2024-02-14 19:57 | disposition home or self-care (01) ==
PROVIDERS: Emergency Provider Emergency Medicine; PCP Hospitalist
DX: J06.9 Acute upper respiratory infection, unspecified (principal); S63.502A Unspecified sprain of left wrist, initial encounter; Z66 Do not resuscitate; G30.9 Alzheimer's disease, unspecified; F02.80 Dementia in other diseases classified elsewhere, unspecified severity, without behavioral disturbance, psychotic disturbance, mood disturbance, and anxiety; I50.9 Heart failure, unspecified; I11.0 Hypertensive heart disease with heart failure; E78.5 Hyperlipidemia, unspecified; E55.9 Vitamin D deficiency, unspecified; K21.9 Gastro-esophageal reflux disease without esophagitis; M81.0 Age-related osteoporosis without current pathological fracture; I48.0 Paroxysmal atrial fibrillation; G40.909 Epilepsy, unspecified, not intractable, without status epilepticus; F25.9 Schizoaffective disorder, unspecified; F32.A Depression, unspecified; Z96.642 Presence of left artificial hip joint; Z87.440 Personal history of urinary (tract) infections; Z87.01 Personal history of pneumonia (recurrent); Z86.16 Personal history of COVID-19; Z87.891 Personal history of nicotine dependence; Z90.710 Acquired absence of both cervix and uterus; X58.XXXA Exposure to other specified factors, initial encounter
CPT/HCPCS: 36415; 71046; 73060; 73080; 73110; 80053; 85025; 87637; 99284; A9270

== ENCOUNTER 2024-06-29 18:24 | Inpatient (IN) | payer MEDICARE, MEDICAID, SELFPAY ==
[2024-06-29] VITALS (31 sets, daily range): BP systolic 121–144; BP diastolic 48–77; PULSE 78–101; RESP 15–26; TEMP 36.9; O2SAT 91–100
--- NOTE | ~2024-06-29 | CT_ITS ---
EXAMINATION: CT brain wo con DATE: 06/29/2024 20:08 INDICATION: Altered mental status. TECHNIQUE: Computed tomography (CT) of the head was performed without intravenous contrast. The mA wa s adjusted according to patient size. Iterative reconstruction technique was employed. The dose-lengt h product was 681.00 mGy-cm. COMPARISON: Head CT 05/26/2024 FINDINGS: There are old infarcts in the cerebellum bilaterally. There are scattered areas of low atte nuation in the cerebral white matter. Old infarcts in the left frontal and parietal lobes and left in sula. There is no intracranial hemorrhage, acute infarction, or abnormal intracranial mass lesion. Th e ventricles are normal in size. There is mucosal thickening in the paranasal sinuses. The orbits are normal. There is a small left mastoid effusion. IMPRESSION: 1. 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 2. Stable moderate nonspecific cerebral white matter disease, which likely represents chronic small v essel ischemic disease. Reviewed, dictated and finalized at location A. NICIAN IMPRESSION: 1. 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 2. Stable moderate nonspecific cerebral white matter disease, which likely repr esents chronic small vessel ischemic disease.
--- NOTE | ~2024-06-29 | CT_ITS ---
EXAMINATION: CT abdomen pelvis w con DATE: 06/29/2024 20:15 INDICATION: Abdominal pain. TECHNIQUE: Computed tomography (CT) of the abdomen and pelvis was performed with 100 mL Omnipaque 350 intravenous contrast. Automated exposure control and iterative reconstruction technique were employe d. The dose-length product was 828.64 mGy-cm. COMPARISON: CT abdomen and pelvis 07/06/2023, 07/16/21 FINDINGS: The visualized portions of the lung bases demonstrate mild atelectasis. No pleural effusion . The heart size is normal. No pericardial effusion. There is a large sliding hiatal hernia. The live r is normal. The gallbladder is distended. Calcifications in the spleen are consistent with old granu lomatous disease. The pancreas and right adrenal gland are normal. There is a 2.2 cm mass in left adr enal gland without change, likely an adenoma. There is cortical thinning of the kidneys. There are cy sts in the kidneys measuring up to 1.9 cm on the left. There is soft tissue thickening thickening inf erior to the bladder with calcifications. There are no pathologically enlarged lymph nodes. There is no free intraperitoneal fluid. There are old healed fractures of right superior and inferior pubic ra mi. There is a total left hip arthroplasty. There is chronic height loss of many vertebral bodies. Th ere are chronic burst fractures of L1 and L2 with changes of vertebroplasty at L1. There is severe lo wer lumbar spondylosis. IMPRESSION: 1. Gallbladder distention, which may be secondary to fasting. Correlate with physical exam to exclude acute cholecystitis. 2. Large sliding hiatal hernia. 3. Chronic soft tissue thickening inferior to the bladder with calcifications, which may be stones in a urethral diverticulum. Reviewed, dictated and finalized at location A. 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 Gallbladder distention, which may be secondary to fasting. Correlate with ph ysical exam to exclude acute cholecystitis. 2. Large sliding hiatal hernia. 3. Chronic soft tissue thickening inferior to the bladder with calcifications, which may be stones in a urethral diverticulum.
[2024-06-29] MEDS: PANTOPRAZOLE SODIUM IV 40 MG VIAL IV PUSH (18:48)
[2024-06-29] MEDS: SODIUM CHLORIDE 0.9% IV 1,000 ML 999 ML IV CONT (18:48)
[2024-06-29 19:03] LABS: Basophils Absolute Auto 0.1 K/mm3 (0.0-0.1); Basophils Percent Auto 0.8 % (0.2-1.2); Hematocrit 36.8 % (37.0-47.0); Hemoglobin 12.1 g/dL (12.0-15.0); Immature Granulocyte Absolute 0.05 K/mm3 (0.00-0.031); Immature Granulocyte Percent A 0.5 % (0-0.5); Lymphocytes Absolute Auto 0.37 K/mm3 (0.9-3.2); Mean Corpuscular HGB Conc 32.9 g/dl (32-36); Mean Corpuscular Hemoglobin 32.2 pg (26-34); Mean Corpuscular Volume 97.9 fl (80-100); Mean Platelet Volume 9.8 fl (7.4-10.4); Monocytes Absolute Auto 0.5 K/mm3 (0.1-0.6); Monocytes Percent Auto 4.9 % (2.6-8.5); Neutrophils Absolute Auto 8.4 K/mm3 (1.3-6.7); Neutrophils Percent Auto 89.8 % (45.5-73.1); Nucleated Red Blood Cells Perc 0.2 % (0.0-0.2); Platelet Count Result 310 k/mm3 (150-375); Red Blood Count 3.76 M/mm3 (4.2-5.4); White Blood Count 9.3 K/mm3 (4.5-10.0)
--- OUTSIDE RECORDS SUMMARY | 2024-06-29 19:03 | XMS_ITS | Encounter Summary ---
Author Organization [facility] Address [address] [facility] [address] [place] [id number] Care Team Providers Care Microbiology Supervisor Name Role Phone Cindy Abernathy MD Primary Care Provider [phone] Cindy Abernathy MD Primary Care Provider [phone] Mary Bonilla RN Unavailable [phone] Marlin Rebolledo RN Unavailable [phone] Charanjit Ace MD Primary Care Provider [phone] Last De Jesus DO Unavailable [phone] Pavan Martinez MD Primary Care Provider [phone] Encounter Details Date Type Department Care Team (Late st Contact Info) Description 07/08/2016 Orders Only [facility] Provider, MD Bola [address] [place] [id number] Social History Tobacco Use Types Packs/Day Years Used Date Smoking Tobacco: Former Cigarettes Q uit: 05/08/1964 Alcohol Use Standard Drinks/Week Comments No 0 (1 standard drink = 0.6 oz pur e alcohol) Comments Unknown Sex and Gender Information Value Date Recorded Sex Assigned at Not on file 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 us Historical Provider [facility] CYNTH[facility] SCHUSTER Final Result documented in this encounter Visit Diagnoses Not on filedocumented in this encounter Care Teams Microbiology Supervisor Relationship Specialty Start Date End Date Cindy Abernathy MD PCP - General 08/05/16 09/05/18 Cindy Abernathy MD PCP - General 06/21/16 08/04/16 Charanjit Ace MD [address] [facility] [address] [place] [address] [address] [place] [address] PCP - General Internal Medicine 09/06/18 06/26/19 Pavan Martinez MD [address] [place] [address] PCP - General Emergency Medicine 06/27/19 Mary Bonilla, CATRINA [address] [facility] [address] [place], [place] [id number] Deliverer Food 10/13/16 11/14/16 Marlin Rebolledo, CATRINA [address] [facility] [address] [place] [address] Deliverer Food 07/24/17 07/24/17 Last De Jesus DO [address] [place] [id number] Cardiovascular Disease 09/27/18 documented as of this encounter
--- OUTSIDE RECORDS SUMMARY | 2024-06-29 19:03 | XMS_ITS | Clinical Summary ---
Author Organization [facility] Address [address] [place] [address] Care Team Providers Care Insulation Supervisor Name Role Phone Last De Jesus DO Unavailable [phone] Pavan Martinez MD Primary Care Provider [phone] Allergies Active Allergy Reactions Criticality Noted Date Comments Codeine Unknown,Other (See comments) Low 05/14/2015 Reaction: Other Delonide Unknown Hydromorphone Nausea Only,Other (See comments) Low 01/12/2015 Reaction: Reaction: Other Morphine Unknown,Other (See comments) Low 05/14/2015 Reaction: Other Opioids - Morphine Analogues Oxycodone Nausea Only,Other (See comments) Low 01/11/2015 Reaction: Sertraline Tramadol Nausea Only,Other (See comments) Low 01/11/2015 Reaction: Medications polyethylene glycol (MIRALAX) 17 gram/dose powder take (17G) by oral route every day mixed with 8 oz. water, juice, soda, coffee or tea 0 2 Active fludrocortisone 0.1 mg tablet take 1 tablet by oral route every day 0 0 6 Active citalopram (CeleXA) 20 mg tablet take 1 tablet by oral route every day 90 1 5 Active benztropine (COGENTIN) 0.5 mg tablet take 1 tablet by oral route 2 times every day 60 5 6 Active atorvastatin (LIPITOR) 10 mg tablet Take 10 mg by mouth daily 8 Active donepezil (ARICEPT) 10 mg tablet 8 Active cholecalciferol (VITAMIN D-3) 50,000 unit capsule 99 8 Active aspirin 81 mg enteric coated tablet Take 81 mg by mouth daily Active benzonatate (TESSALON) 100 mg capsuleIndicati ons:Cough Take 200 mg by mouth 3 (three) times a day as needed for cough Active magnesium oxide (MAG-OX) 400 mg (241.3 mg elemental magnesium) tabletIndicatio ns:hypomagnesem ia Take 400 mg by mouth daily Active omeprazole (PriLOSEC) 20 mg capsule Take 20 mg by mouth daily Active potassium chloride ER (potassium chloride ER) 20 mEq CR tablet Take 20 mEq by mouth daily Active furosemide (LASIX) 40 mg tablet Take 1 tablet (40 mg total) by mouth 2 (two) times a day after breakfast and lunch 60 tablet 2 9 Active LORazepam (ATIVAN) 0.5 mg tablet Take 1 tablet (0.5 mg total) by mouth every 6 (six) hours as needed for anxiety 30 tablet 9 Active Additional Information Patient not taking.Reported on 06/27/2019 sacubitril-vals alex (ENTRESTO) 24-26 mg tabletIndicatio ns:chronic heart failure Take 0.5 tablets by mouth 2 (two) times a day 15 tablet 5 9 Active lamoTRIgine (LaMICtal) 100 mg tablet Take 1 tablet (100 mg total) by mouth nightly 30 tablet 11 9 Active levETIRAcetam (KEPPRA) 500 mg tablet Take 1 tablet (500 mg total) by mouth 2 (two) times a day 60 tablet 11 9 Active Additional Information Patient taking differently: 250 mgoral 2 times daily, Reported on 06/27/2019 cetirizine (ZyrTEC) 10 mg tablet Take 10 mg by mouth daily Active cyanocobalamin (Vitamin B-12) 1,000 mcg tabletIndicatio ns:Prevention of Vitamin B12 Deficiency Take 1,000 mcg by mouth daily Active fluticasone propionate (FLONASE) 50 mcg/actuation nasal spray Administer 1 spray into each nostril daily Active Active Problems Problem Noted Date Diagnosed Date Cardiomyopathy 11/15/2018 Frequent UTI 10/01/2018 Frequent falls 10/01/2018 Alzheimer's dementia 10/01/2018 Syncope and collapse 08/22/2017 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 Overview (08/12/2016): Orthostatic hypotension 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 Overview (08/12/2016): Cerebral infarction due to embolism of cerebral arteries Hyperlipidemia 06/17/2015 Paroxysmal atrial fibrillation (CMS/HCC) 016 Epilepsy 06/17/2015 Aphasia as late effect of cerebrovascular accide nt (CVA) 06/17/2015 Non-familial Alzheimer's disease of late onset 1 06/18/2014 Overview (08/12/2016): Non-familial Alzheimer's disease of late onset Complex partial seizure evolving to generalized seizure 04/17/2015 Overview (08/12/2016): Complex partial seizure evolving to generalized seizure Dementia due to general medical condition 2014 Overview (08/12/2016): Dementia associated with another disease Cobalamin deficiency 06/24/2014 Overview (08/12/2016): B12 deficiency Insomnia 09/21/2013 Overview (08/11/2016): Insomnia Gastroesophageal reflux disease 09/21/2013 Overview (08/11/2016): GERD (gastroesophageal reflux disease) Post-menopausal osteoporosis 09/21/2013 Overview (08/12/2016): Osteoporosis, postmenopausal Constipation 09/21/2013 Overview (08/12/2016): Constipation Generalized osteoarthritis 09/21/2013 Overview (08/12/2016): DJD (degenerative joint disease), multiple sites Pain of hand 09/21/2013 Overview (08/12/2016): Hand pain, not arthralgia Irritable bowel syndrome 09/21/2013 Overview (08/12/2016): IBS (irritable bowel syndrome) Seizure 09/18/2013 Overview (08/12/2016): Seizure / Convulsions Closed fracture of lumbar vertebra (CMS/HCC) Overview (08/11/2016): Fx lumbar vertebra-closed Major depressive disorder 08/13/2012 Overview (08/11/2016): Major depression Benign essential hypertension 07/11/2012 Overview (08/12/2016): Benign essential HTN 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 Overview (08/10/2016): Adrenal nodule Generalized weakness Pleural effusion on right Microcytic anemia Chronic systolic congestive heart failure (CMS/H CC) Immunizations Immunization Administration Dates Next Due Influenza, Trivalent, High D ose, Split, Preservative Free, Intramuscular 02/16/2016 Influenza, Trivalent, IM (MDV) 02/22/2011 Influenza, Trivalent, Preservative Free, Intramu scular 03/05/2015 Pneumococcal Conjugate PCV 13 06/24/2014, 015 Pneumococcal Polysaccharide PPV23 07/21/2015, Tdap 03/07/2012 ZOSTER LIVE 11/17/2011 Surgical History Surgery Date Site/Laterality Comments OTHER SURGICAL HISTORY hand surg OTHER SURGICAL HISTORY DJD OTHER SURGICAL HISTORY rt hand surgery HYSTERECTOMY Hysterectomy SHOULDER SURGERY left shoulder surgery BLADDER REPAIR 1998 bladder repair TOTAL ABDOMINAL HYSTERECTOMY W/ BILATERAL SALPINGOOPHORECTOMY 1973 Hysterectomy, total abdominal, BSO VAGINAL HYSTERECTOMY 1974 Hysterectomy, vaginal CARPAL TUNNEL RELEASE 2006 Carpal tunnel release OTHER SURGICAL HISTORY 2012 Orthostatic hypotension: OTHER SURGICAL HISTORY 2012 Chronic shoulder pain: OTHER SURGICAL HISTORY 2012 Parkinsonism due to drug: OTHER SURGICAL HISTORY 2012 Dysphasia: OTHER SURGICAL HISTORY 2012 Lower abdominal pain: OTHER SURGICAL HISTORY 2012 Estradiol excess: ROTATOR CUFF REPAIR Left Rotator cuff repair HYSTERECTOMY Hysterectomy HYSTERECTOMY 1974 Hysterectomy OTHER SURGICAL HISTORY left hip nailing OTHER SURGICAL HISTORY left conversion total hip SHOULDER SURGERY Left Shoulder Surgery - (Added by TW Conv) [place] TOTAL ABDOMINAL HYSTERECT W/WO RMVL TUBE OVARY Hysterectomy - (Added by TW Conv) BACK SURGERY Lower Back Surgery - (Added by Conv) [place] ARTHRP ACETBLR/PROX FEM P ROSTC AGRFT/ALGRFT Left Total Hip Replacement - Mar 2015 (Added by Conv) Medical History Medical History Date Comments Hx Other Medical CVA (Stroke) Hyperlipidemia Hyperlipidemia Atrial fibrillation (CMS/HCC) (HCC) Atrial fibrillation Hx Other Medical Gastroesophagea l reflux disease Irritable bowel syndrome Irritab le bowel disease Hypertension Hypertension Hx Other Medical A-Fib Constipation constipation Hx Other Medical lower abdominal pain Hx Other Medical dysphasia Hx Other Medical IBS Gastroesophageal reflux disease GERD Hx Other Medical 2006 Right shoulder surgery Hx Other Medical Orthostatic hyp otension; Comments: Cindy Abernathy MD; Outcome: Resolved from Problem List Hx Other Medical Chronic shoulde r pain; Comments: Cindy Abernathy MD; Outcome: Resolved from Problem List Hx Other Medical Parkinsonism du e to drug; Comments: Cindy Abernathy MD; Outcome: Resolved from Problem List Hx Other Medical Dysphasia; Comm ents: Cindy Abernathy MD; Outcome: Resolved from Problem List Hx Other Medical Lower abdominal pain; Comments: Cindy Abernathy MD; Outcome: Resolved from Problem List Hx Other Medical Estradiol exces s; Comments: Cindy Abernathy MD; Outcome: Resolved from Problem List Hx Other Medical 2004 ORIF right wris t Hx Other Medical TIA Osteoarthritis Osteoarthritis Tension headache Headache, tensi on Seizure disorder (CMS/HCC) (HCC) Seizure disorder Cerebral infarction (HCC) Cardio embolic stroke - 05/2015, R.HP and aphasia, in setting of paroxysmal afib (Added by Conv) Family History Medical History Relation Name Comments Heart disease Brother 5 Heart disease; Cause of : Heart disease Heart disease Brother 6 Heart disease; Cause of : Heart disease Heart disease Brother 7 Heart disease; Cause of : Heart disease Heart attack Brother 8 Myocardial infa rction; Cause of : Myocardial infarction Stroke Brother 9 Family history of stroke - (Added by TW Conv) Other Father Hepatitis; /emp hyzema; Cause of : emphyzema Cirrhosis Mother Cirrhosis; Caus e of : Cirrhosis Other Mother sclerosis of li kacey; Cause of : sclerosis of liver Stroke Other 1 Family history of Stroke; Heart failure Other 2 Family history of Congestive heart failure; Coronary artery disease Other 3 Fami ly history of Coronary artery disease; Heart attack Other 4 Family history of Myocardial infarction; Relation Name Status Comments Brother 1 Brother 2 (Age 60) Brother 3 (Age 73) Brother 4 (Age 60) Brother 5 Brother 6 Brother 7 Brother 8 Brother 9 Father (Age 86) Mother (Age 65) Other 1 Other 2 Other 3 Other 4 Social History Tobacco Use Types Packs/Day Years Used Date Smoking Tobacco: Former Smokeless Tobacco: Never Tobacco Cessation:Counseling Given: Yes Alcohol Use Standard Drinks/Week Comments No 0 (1 standard drink = 0.6 oz pur e alcohol) Personal Safety Answer Date Recorded Have you ever been in or are you currently in a harmful physical or emotional relationship or is someone making you feel afraid or unsafe? 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 Gender Identity Not on file Sexual Orientation Not on file Obstetrics History Last Filed Vital Signs Vital Sign Reading Time Taken Comments Blood Pressure 113/67 02/15/2024 1:50 PM CDT Pulse 71 02/15/2024 1:50 PM CDT Temperature 36.4 C (97.5 F) 02/15/2024 1:50 PM CDT Respiratory Rate 18 02/15/2024 1:50 PM CDT Oxygen Saturation 97% 02/15/2024 1:50 PM CDT Inhaled Oxygen Concentration - - Weight 64.9 kg (143 lb 1.3 oz) 02/15/2024 1:50 P M CDT Height 160 cm (5' 2.99 ) 02/15/2024 1:50 PM CDT Body Mass Index 25.35 02/15/2024 1:50 PM CDT Plan of Treatment Health Maintenance Due Date Last Done Comments Depression Screening 1938 Fall Risk Assessment 1940 Osteoporosis Screening-Bone Density Scan 1938 Hepatitis B Screening 1956 Well Visit 65+ 12/16/2003 Zoster Vaccine (2 of 3) 01/12/2012 11/17/2011 Influenza Vaccine (#1) 2024 6, 03/06/2015, 03/05/2015, Additional history exists DTaP/Tdap/Td Vaccine (3 - Td or Tdap) 08/03/2027 08/02/2017, 03/07/2012 Pneumococcal vaccine 65+ Completed 016, 06/24/2014, 06/24/2014, [place] [id number] [facility] [place] [id number] [facility] MEDICARE SOLUTIONS [employer] [facility] [id number] [place] [address] MEDICARE SOLUTIONS Advance Directives For more information, please contact: [phone] Documents on File Type Date Recorded Patient Rn Diabetes Educator Expl anation ADVANCE DIRECTIVE 08/04/2017 12:00 AM DNR * Full Code (Latest Code Status on File) Date Activated Date Inactivated Comments 09/19/2018 7:50 PM 09/27/2018 11:22 PM Care Teams Insulation Supervisor Relationship Specialty Start Date End Date Pavan Martinez MD [address] [place] [address] PCP - General Emergency Medicine 06/27/19 Last De Jesus DO [address] [place] [address] [address]ER [address] [place] [id number] Cardiovascular Disease 09/27/18
--- OUTSIDE RECORDS SUMMARY | 2024-06-29 19:03 | XMS_ITS | CONTINUITY OF CARE DOCUMENT ---
Author Name juliennecarlos elvin Address Unknown Organization [facility] Office Address [address] [place] [address] Phone [phone] Care Team Providers Care Sales Coach Name Role Phone Guilherme Ruvalcaba MD Unavailable PATRICE SANDERS MD Unavailable [phone] PATRICE SANDERS MD Unavailable PROBLEMS Condition Status Date Provider Notes Palpitations active Rolando Pelayo INSURANCE PROVIDERS Payer name Policy type / Coverage type [place] red libertarian ID [facility] [id number] [place] MED[place] Medicare [id number] HISTORY OF PROCEDURES Procedure Date Procedure Name Provider Procedure Notes S tatus Event Monitor Rolando Pelayo completed
--- OUTSIDE RECORDS SUMMARY | 2024-06-29 19:03 | XMS_ITS | Referral Summary ---
Author Organization [facility] Address [address] [place] [address] Care Team Providers Care Land Title Examiner Name Role Phone Last De Jesus DO Unavailable [phone] Pavan Martinez MD Primary Care Provider [phone] Allergies Active Allergy Reactions Criticality Noted Date [...] PPV23 07/21/2015, Tdap 03/07/2012 ZOSTER LIVE 11/17/2011 Social History Tobacco Use Types Packs/Day Years [...] on file Legal Sex Female 4:50 PM PROCESS CONTROL TECH Gender Identity Not on file Sexual Orientation Not on file Last Filed Vital Signs Vital Sign Reading [...] 02/15/2024 1:50 PM CDT Plan of Treatment Not on file Insurance IDPA [facility] MEDICARE [facility] MEDICARE Address: [address] [address] [place] [address] [place] [address] [facility] MEDICARE SOLUTIONS [facility] MEDICARE Address: [address] [address] [place] [address] [employer] [place] [address] MEDICARE SOLUTIONS Advance Directives For more information, please contact: [phone] Documents on File Type Date Recorded Patient Event Coordinator Marketing And Sales Expl anation ADVANCE DIRECTIVE 08/04/2017 12:00 AM DNR * Full Code (Latest Code Status on File) Date Activated Date Inactivated Comments 09/19/2018 7:50 PM 09/27/2018 11:22 PM Care Teams Land Title Examiner Relationship Specialty Start Date End Date Pavan Martinez MD [address] [place] [address] PCP - General Emergency Medicine 06/27/19 Last De Jesus DO [address] [place] [address] [address] MAYER [address] [place] [id number] Cardiovascular Disease 09/27/18
[2024-06-29 19:14] LABS: INR 1.4; Prothrombin Time 17.4 Seconds (11.1-14.7)
[2024-06-29 19:15] LABS: Partial Thromboplastin Time 38.3 Seconds (22.3-36.8)
[2024-06-29 19:17] LABS: Alanine Aminotransferase 16 U/L (6-35); Alkaline Phosphatase 110 U/L (38-126); Anion Gap 12 mmol/L (4-12); Aspartate Amino Transferase 26 U/L (14-36); Bilirubin,Total 0.7 mg/dL (0.2-1.3); Blood Urea Nitrogen 30 mg/dL (7-17); Calcium 8.9 mg/dL (8.4-10.2); Carbon Dioxide 26 mmol/L (22-30); Chloride 102 mmol/L (98-107); Estimated CRCL calculation 26 ml/min; Estimated Glomerular Filt Rate 43; Glucose 123 mg/dL (65-110); Sodium 140 mmol/L (137-145)
[2024-06-29 19:25] LABS: Add Urine Microscopic? YES; Appearance Urine Clear (Clear); Bacteria Urine Rare /hpf; Bilirubin Urine Negative (Negative); Blood Urine Non-Hemolyzed Trace (Negative); Color Urine Yellow (Yellow); Glucose Urine UA Negative (Negative); Hyaline Casts Urine Present /lpf; Ketones Urine Negative (Negative); Leukocyte Esterase Ur 2+ LEU/UL (Negative); Need Manual Microscopic Reviewed; Nitrate Urine Negative (Negative); Non Pathogenic Casts >20; Protein Urine Negative (Negative); Specific Grav Ur 1.015 (1.001-1.035); Squamous Epithelial Cell Urine None Seen /hpf (Few); Urobilinogen Urine 0.2 mg/dL (<2.0); WBC Urine 21-50 /hpf (0-3); pH Urine 5.5 (5.0-9.0)
--- NOTE | 2024-06-29 19:42 | ECG_ITS ---
Test Date: 2024-06-29 20:30:36 Measurements Intervals [place] Rate: 79 P: -12 ND: 161 QRS: -12 QRSD: 135 T: 76 QT: 405 QTc: 467 Interpretive Statements SINUS RHYTHM LEFT BUNDLE BRANCH BLOCK BASELINE ARTIFACT- I, II, III, AVR, AVL, AVF, V4-V6 ABNORMAL ECG Compared to ECG 05/21/2024 14:12:03 No significant changes Electronically Signed On 06-30-2024 07:17:36 ETL SOFTWARE ENGINEER by Vladimir Sosa D.O.
--- NOTE | 2024-06-29 19:58 | ED_ITS ---
HPI - GI Bleed General Chief complaint: GI Bleed <Anabell Ball PA-C - Last Filed: 06/30/24 00:22> Stated complaint: coffee ground emesis <YESSENIA Malloy Last Filed: 06/30/24 00:22> Time Seen by Provider: 06/29/24 18:35 <YESSENIA Malloy Last Filed: 06/30/24 00:22> Source: patient and family <YESSENIA Malloy Last Filed: 06/30/24 00:22> Mode of arrival: EMS <YESSENIA Malloy Last Filed: 06/30/24 00:22> Limitations: clinical condition <YESSENIA Malloy Last Filed: 06/30/24 00:22> History of Present Illness HPI Narrative: Patient is an 83-year-old female, with PMH of CHF, HTN, recurrent UTIs, dementia, pAFIB on eliquis, who presents the ED via EMS with report of GI bleeding. Patient is resident [facility]. Per EMS report, patient developed nausea and vomiting this evening which consistent with dark brown coffee-ground emesis. EMS did state there was some bright red bleeding emesis as well. Patient complains of diffuse abdominal pain currently. She also reports diarrhea. States she does not know why she is in the ED. she does have history of dementia, but facility reported that she was increasingly altered and confused today. A&O x2 upon my evaluation. Has been reports patient did not want to talk to her daughter on the phone today which is abnormal for her. He states she is prone to UTIs. <YESSENIA Malloy Last Filed: 06/30/24 00:22> Related Data Home medications: Home Medications ?Medication ?Instructions ?Recorded ?Confirmed ?Last Taken ?Type cholecalciferol (vitamin D3) 1,250 50,000 unit PO WEEKLY 03/20/19 06/29/24 03/28/22 History mcg (50,000 unit) tablet cyanocobalamin (vitamin B-12) 1,000 mcg PO DAILY 03/20/19 06/29/24 03/20/19 History 1,000 mcg capsule donepezil 10 mg tablet 10 mg PO HS 03/20/19 06/29/24 03/19/19 History polyethylene glycol 3350 17 17 g PO DAILY PRN Constipation 03/20/19 06/29/24 03/20/19 History gram/dose oral powder (Miralax) duloxetine 60 mg capsule,delayed 60 mg PO DAILY 07/16/21 06/29/24 Unknown History release famotidine 20 mg disintegrating 20 mg PO BID 07/16/21 06/29/24 Unknown History tablet lamotrigine 100 mg tablet 100 mg PO DAILY 07/16/21 06/29/24 Unknown History levetiracetam 250 mg tablet 250 mg PO BID 07/16/21 06/29/24 Unknown History (Keppra) melatonin 3 mg tablet 3 mg PO HS 07/16/21 06/29/24 Unknown History cranberry fruit 450 mg tablet 450 mg PO DAILY 04/05/22 06/29/24 Unknown History (cranberry) fluticasone propionate 50 2 spray intranasal DAILY 04/05/22 06/29/24 Unknown History mcg/actuation nasal spray,suspension (Allergy Relief (fluticasone)) mirabegron 25 mg tablet,extended 25 mg PO DAILY 04/05/22 06/29/24 Unknown History release 24 hr (Myrbetriq) Marisol-Tussin 5 ml PO Q6H PRN Congestion 09/13/22 06/29/24 Unknown History acetaminophen 325 mg tablet 650 mg PO Q4H PRN Pain (Scale 09/13/22 06/29/24 Unknown History Score 1-3) lorazepam 0.5 mg tablet 0.5 mg PO TID 09/13/22 06/29/24 Unknown History magnesium oxide 1 tablet PO DAILY 09/13/22 06/29/24 Unknown History potassium chloride 20 mEq 20 meq PO BID 09/13/22 06/29/24 Unknown History tablet,extended release(part/cryst) (Klor-Con M) sennosides 8.6 mg-docusate sodium 1 tab-cap PO DAILY 06/06/23 06/29/24 Unknown History 50 mg tablet (Senna Plus) cetirizine 10 mg tablet (24Hour 10 mg PO DAILY 05/21/24 06/29/24 Unknown History Allergy) clobetasol 0.05 % topical cream 1 applic topical DAILY 05/21/24 06/29/24 Unknown History pantoprazole 20 mg tablet,delayed 20 mg PO BID 06/29/24 06/29/24 Unknown History release <Anabell Ball PA-C - Last Filed: 06/30/24 00:22> Allergies/Adverse reactions: Allergies Allergy/AdvReac Type Severity Reaction Status Date / Time sertraline Allergy Severe Unknown Verified 06/20/24 13:15 hydromorphone Allergy Intermediate Unknown Verified 06/20/24 13:15 <Anabell Ball PA-C - Last Filed: 06/30/24 00:22> Review of Systems 2 Review of Systems: All systems reviewed & are unremarkable except as noted in HPI. 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, 2019 Thoracic compression fracture T10 Essential hypertension Osteoporosis Frequent urinary tract infections history of ESBL E coli infection March 2018 Seizure disorder Schizoaffective disorder Hyperlipidemia Depression Dementia Paroxysmal atrial fibrillation <Anabell Ball PA-C - Last Filed: 06/30/24 00:22> Surgical History Surgical History: Surgical History History of arthroscopy of left shoulder History of total left hip arthroplasty (2015) History of bladder suspension procedure History of hysterectomy <Anabell Ball PA-C - Last Filed: 06/30/24 00:22> Family History Family History: Family History Sibling Dementia Cerebrovascular accident Sibling Acute myocardial infarction Mother Cirrhosis Father Emphysema of lung <Anabell Ball PA-C - Last Filed: 06/30/24 00:22> Social History Social History: Social History Social History: Surrogate medical decision maker: Cameron Naranjo. Code status: Do not resuscitate. Smoking packs per day: 1 Smoking cigarettes per day: 20.0 Years smoked: 10 Smoking pack-years: 10.00 Smoking status: Unknown if ever smoked Second hand tobacco smoke exposure: No Alcohol intake: unknown Substance use: unknown Substance use type: does not use Do You Feel Safe in your Home?: Yes Lack of Transportation: No Lack of Food: Never True Current Housing: I Have Housing Concerned About Future Housing: No Difficulty Paying Gas/Electric Bills: No Difficulty Paying for Meds: No Currently Unemployed: No Education: High School Diploma/GED Difficulty w/ Childcare or Family Care: No Additional living arrangements comments: . Resident at [facility]. 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: No Agree to blood products: Yes <Anabell Ball PA-C - Last Filed: 06/30/24 00:22> Exam 2 Narrative: GENERAL: Elderly, chronically ill appearing, non-toxic, in no acute distress. HEAD: Normocephalic, atraumatic. ENT: Dried brown vomitus on mouth. MMs dry RESPIRATORY: Airway patent, respirations nonlabored. Clear to auscultation bilaterally, no rales, rhonchi, wheezing. CARDIOVASCULAR: Regular rate and rhythm without murmurs, rubs, or gallops. ABDOMINAL: Soft, diffuse tenderness in epigastric region, lower abdomen. Nondistended. Normoactive BS. RECTAL: Normal rectal tone. No evidence of thrombosed hemorrhoids. Stool is brown, guaiac positive. MUSCULOSKELETAL: Moves all extremities. No gross deformities. SKIN: Warm, dry, normal color. NEURO: A&O X2, unsure of year. Speech clear. Steady gait. No ataxic movements. No appreciable focal deficits. PSYCHIATRIC: Appropriate mood and affect. Normal interaction. <Anabell Ball PA-C - Last Filed: 06/30/24 00:22> Course VERIFYING MACHINE OPERATOR/PA Physician Supervision For this patient encounter, I reviewed the VERIFYING MACHINE OPERATOR or PA documentation, treatment plan, and medical decision making and had [id number] time with this patient. I performed all aspects of the MDM as documented. <Juliette Palm MD - Last Filed: 06/30/24 04:34> Vital Signs Vital signs: Vital Signs Temperature 98.5 F 06/29/24 18:16 Pulse Rate 97 06/29/24 18:16 Respiratory Rate 18 06/29/24 18:16 Blood Pressure 135/67 06/29/24 18:16 Pulse Oximetry 92 06/29/24 18:16 Oxygen Delivery Room Air 06/29/24 18:16 Temperature 97.5 F L 06/30/24 00:14 Pulse Rate 78 06/30/24 00:14 Respiratory Rate 20 06/30/24 00:14 Blood Pressure 136/53 L 06/30/24 00:14 Pulse Oximetry 100 06/30/24 00:14 Oxygen Delivery Nasal Cannula 06/29/24 23:41 Oxygen Flow Rate 2 06/29/24 23:41 <Anabell Ball PA-C - Last Filed: 06/30/24 00:22> Vital Signs Temperature 98.5 F 06/29/24 18:16 Pulse Rate 97 06/29/24 18:16 Respiratory Rate 18 06/29/24 18:16 Blood Pressure 135/67 06/29/24 18:16 Pulse Oximetry 92 06/29/24 18:16 Oxygen Delivery Room Air 06/29/24 18:16 Temperature 97.5 F L 06/30/24 00:14 Pulse Rate 78 06/30/24 00:14 Respiratory Rate 20 06/30/24 00:14 Blood Pressure 136/53 L 06/30/24 00:14 Pulse Oximetry 100 06/30/24 00:14 Oxygen Delivery Nasal Cannula 06/29/24 23:41 Oxygen Flow Rate 2 06/29/24 23:41 <Juliette Palm MD - Last Filed: 06/30/24 04:34> MDM - GI Bleed MDM Narrative Medical decision making narrative: Patient presented to ED with GI bleed from local nursing facility. Reported coffee-ground and bright red emesis. Patient is on Eliquis due to history of paroxysmal AFib. Vital signs are stable upon arrival. Blood pressure stable. She was noted to be borderline hypoxic down into the upper 80s upon arrival and was placed on 2 L nasal cannula. No previous oxygen requirement. She is denying any shortness of breath. CBC with white blood cell count of 9.3. Hemoglobin is stable at 12.1. This does appear fairly consistent with previous records. Lab work in May of this year did show hemoglobin of 13.3, though she has several recent records in the 12 range. Rectal exam performed here is guaiac positive. No melena or bright red blood per rectum. Stool is brown. CMP with slight EDITH. BUN 30. Creatinine today around 1.2. Baseline around 0.8. Given fluids. Otherwise stable electrolytes. Normal LFTs. UA with possible infection, 2+ esterase, 21-[address] for culture[address] abdomen and pelvis obtained and fairly unremarkable, does show large sliding hiatal hernia which is known to patient. Showing gallbladder distension, no other signs of cholecystitis. Low suspicion for cholecystitis. LFTs are normal here. Patient was given IV Protonix in addition to fluids. CT brain obtained as patient was reported to be increasingly confused today. Showing old infarct. No acute intracranial pathology. Discussed case with Dr. Sawant with GI, will consult. Will discuss with hospitalist team for admission and potentially antibiotics for UTI. Discussed case with Dr. Bermudez, hospitalist, accepted patient for admission. Recommended continue fluids, protonix BID, NPO, repeat H&H at midnight. Patient and family in agreement with plan and need for admission. All questions answered. <Anabell Ball PA-C - Last Filed: 06/30/24 00:22> Medical Records Attestation: I reviewed the patient's medical records. <YESSENIA Malloy Last Filed: 06/30/24 00:22> Lab Data Attestation: I reviewed the patient's lab results. <YESSENIA Malloy Last Filed: 06/30/24 00:22> Result diagrams: 06/30/24 00:51 06/29/24 18:49 <Anabell Ball PA-C - Last Filed: 06/30/24 00:22> Labs: Lab Results 06/29/24 06/29/24 06/29/24 Range/Units 18:49 19:15 20:43 WBC 9.3 (4.5-10.0) K/mm3 RBC 3.76 L (4.2-5.4) M/mm3 Hgb 12.1 (12.0-15.0) g/dL Hct 36.8 L (37.0-47.0) % MCV 97.9 (80-100) fl MCH 32.2 (26-34) pg MCHC 32.9 (32-36) g/dl RDW 15.0 H (11.5-14.5) % Plt Count 310 (150-375) k/mm3 MPV 9.8 (7.4-10.4) fl Immature Gran % (Auto) 0.5 (0-0.5) % Neut % (Auto) 89.8 H (45.5-73.1) % Lymph % (Auto) 4.0 L (18.3-44.2) % Cocke % (Auto) 4.9 (2.6-8.5) % Eos % (Auto) 0.0 (0-4.4) % Baso % (Auto) 0.8 (0.2-1.2) % Lymph # (Auto) 0.37 L (0.9-3.2) K/mm3 Cocke # (Auto) 0.5 (0.1-0.6) K/mm3 Eos # (Auto) 0.0 (0-0.3) K/mm3 Baso # (Auto) 0.1 (0.0-0.1) K/mm3 Abs Immat Gran (auto) 0.05 H (0.00-0.031) K/mm3 Absolute Neuts (auto) 8.4 H (1.3-6.7) K/mm3 Absolute Nucleated RBC 0.020 H (0.0-0.012) K/mm3 Nucleated RBC % 0.2 (0.0-0.2) % PT 17.4 H (11.1-14.7) Seconds INR 1.4 APTT 38.3 H (22.3-36.8) Seconds Sodium 140 (137-145) mmol/L Potassium 4.0 (3.4-5.0) mmol/L Chloride 102 (98-107) mmol/L Carbon Dioxide 26 (22-30) mmol/L Anion Gap 12 (4-12) mmol/L BUN 30 H (7-17) mg/dL Creatinine 1.19 H (0.7-1.0) mg/dL Estim Creat Clear Calc 26 ml/min Estimated GFR 43 L (59 - ) Glucose 123 H (65-110) mg/dL Calcium 8.9 (8.4-10.2) mg/dL Total Bilirubin 0.7 (0.2-1.3) mg/dL AST 26 (14-36) U/L ALT 16 (6-35) U/L Alkaline Phosphatase 110 (38-126) U/L Troponin I < 0.012 (0.000-0.034) ng/mL NT-Pro-B Natriuret Pep 1070 H (19.9-100) pg/mL Total Protein 7.0 (6.3-8.2) g/dL Albumin 4.0 (3.5-5.1) g/dL Urine Color Yellow (Yellow) Urine Appearance Clear (Clear) Urine pH 5.5 (5.0-9.0) Ur Specific [place] 1.015 (1.001-1.035) Urine Protein Negative (Negative) mg/dL Urine Glucose (UA) Negative (Negative) mg/dL Urine Ketones Negative (Negative) mg/dL Ur Blood (Man) Non-hemolyzed trace H (Negative) Urine Nitrate Negative (Negative) Urine Bilirubin Negative (Negative) Urine Urobilinogen 0.2 (<2.0) mg/dL Add Ur Microanalysis Reviewed Leukocyte Esterase Rfl 2+ H (Negative) JOVANY/UL Urine RBC 3-5 H (0-2) /hpf Urine WBC 21-50 H (0-3) /hpf Ur Squamous Epith Cells None seen (Few) /hpf Urine Bacteria Rare /hpf Urine Casts >20 Hyaline Casts Present (None) /lpf Influenza A (RT-PCR) Negative (Negative) Influenza B (RT-PCR) Negative (Negative) RSV (RT-PCR) Negative (Negative) SARS-CoV-2 RNA (RT-PCR) Negative (Negative) Blood Type A Positive Antibody Screen Negative <Anabell Ball PA-C - Last Filed: 06/30/24 00:22> Lab Results 06/29/24 06/29/24 06/29/24 Range/Units 18:49 19:15 20:43 WBC 9.3 (4.5-10.0) K/mm3 RBC 3.76 L (4.2-5.4) M/mm3 Hgb 12.1 (12.0-15.0) g/dL Hct 36.8 L (37.0-47.0) % MCV 97.9 (80-100) fl MCH 32.2 (26-34) pg MCHC 32.9 (32-36) g/dl RDW 15.0 H (11.5-14.5) % Plt Count 310 (150-375) k/mm3 MPV 9.8 (7.4-10.4) fl Immature Gran % (Auto) 0.5 (0-0.5) % Neut % (Auto) 89.8 H (45.5-73.1) % Lymph % (Auto) 4.0 L (18.3-44.2) % Cocke % (Auto) 4.9 (2.6-8.5) % Eos % (Auto) 0.0 (0-4.4) % Baso % (Auto) 0.8 (0.2-1.2) % Lymph # (Auto) 0.37 L (0.9-3.2) K/mm3 Cocke # (Auto) 0.5 (0.1-0.6) K/mm3 Eos # (Auto) 0.0 (0-0.3) K/mm3 Baso # (Auto) 0.1 (0.0-0.1) K/mm3 Abs Immat Gran (auto) 0.05 H (0.00-0.031) K/mm3 Absolute Neuts (auto) 8.4 H (1.3-6.7) K/mm3 Absolute Nucleated RBC 0.020 H (0.0-0.012) K/mm3 Nucleated RBC % 0.2 (0.0-0.2) % PT 17.4 H (11.1-14.7) Seconds INR 1.4 APTT 38.3 H (22.3-36.8) Seconds Sodium 140 (137-145) mmol/L Potassium 4.0 (3.4-5.0) mmol/L Chloride 102 (98-107) mmol/L Carbon Dioxide 26 (22-30) mmol/L Anion Gap 12 (4-12) mmol/L BUN 30 H (7-17) mg/dL Creatinine 1.19 H (0.7-1.0) mg/dL Estim Creat Clear Calc 26 ml/min Estimated GFR 43 L (59 - ) Glucose 123 H (65-110) mg/dL Calcium 8.9 (8.4-10.2) mg/dL Total Bilirubin 0.7 (0.2-1.3) mg/dL AST 26 (14-36) U/L ALT 16 (6-35) U/L Alkaline Phosphatase 110 (38-126) U/L Troponin I < 0.012 (0.000-0.034) ng/mL NT-Pro-B Natriuret Pep 1070 H (19.9-100) pg/mL Total Protein 7.0 (6.3-8.2) g/dL Albumin 4.0 (3.5-5.1) g/dL Urine Color Yellow (Yellow) Urine Appearance Clear (Clear) Urine pH 5.5 (5.0-9.0) Ur Specific [place] 1.015 (1.001-1.035) Urine Protein Negative (Negative) mg/dL Urine Glucose (UA) Negative (Negative) mg/dL Urine Ketones Negative (Negative) mg/dL Ur Blood (Man) Non-hemolyzed trace H (Negative) Urine Nitrate Negative (Negative) Urine Bilirubin Negative (Negative) Urine Urobilinogen 0.2 (<2.0) mg/dL Add Ur Microanalysis Reviewed Leukocyte Esterase Rfl 2+ H (Negative) JOVANY/UL Urine RBC 3-5 H (0-2) /hpf Urine WBC 21-50 H (0-3) /hpf Ur Squamous Epith Cells None seen (Few) /hpf Urine Bacteria Rare /hpf Urine Casts >20 Hyaline Casts Present (None) /lpf Influenza A (RT-PCR) Negative (Negative) Influenza B (RT-PCR) Negative (Negative) RSV (RT-PCR) Negative (Negative) SARS-CoV-2 RNA (RT-PCR) Negative (Negative) Blood Type A Positive Antibody Screen Negative <Juliette Palm MD - Last Filed: 06/30/24 04:34> Imaging Data Attestation: I personally reviewed and interpreted this imaging study as follows: < Anabell Ball PA-C - Last Filed: 06/30/24 00:22> Radiologist's impression: ITS Impressions Head CT 06/29/24 20:12 IMPRESSION: 1. 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 2. Stable moderate nonspecific cerebral white matter disease, which likely represents chronic small vessel ischemic disease. Abdomen/Pelvis CT 06/29/24 20:17 IMPRESSION: 1. Gallbladder distention, which may be secondary to fasting. Correlate with physical exam to exclude acute cholecystitis. 2. Large sliding hiatal hernia. 3. Chronic soft tissue thickening inferior to the bladder with calcifications, which may be stones in a urethral diverticulum. <Anabell Ball PA-C - Last Filed: 06/30/24 00:22> ECG Data EKG #1: Attestation: I personally reviewed and interpreted this ECG as follows: <Anabell Ball PA-C - Last Filed: 06/30/24 00:22> ECG completion date: 06/29/24 <Anabell Ball PA-C - Last Filed: 06/30/24 00:22> ECG completion time: 20:30 <YESSENIA Malloy Last Filed: 06/30/24 00:22> EKG Interpretation: normal rate (79), sinus rhythm, non-specific ST changes and LBBB (chronic, consistent with previous records) <Anabell Ball PA-C - Last Filed: 06/30/24 00:22> Discharge Plan Discharge Clinical Impression: Acute upper GI bleed, Hiatal hernia, Chronic anticoagulation, Abnormal urinalysis Dementia Qualifiers: Dementia type: Alzheimer's Alzheimer's disease onset: late onset Dementia severity: moderate Dementia behavioral or psychological symptom: with other behavioral disturbance Qualified Code(s): G30.1 - Alzheimer's disease with late onset <YESSENIA Malloy Last Filed: 06/30/24 00:22> Patient Disposition: Still a Patient <YESSENIA Malloy Last Filed: 06/30/24 00:22> Condition: Stable <Anabell Ball PA-C - Last Filed: 06/30/24 00:22>
[2024-06-29 20:20] LABS: Influenza A QL RT-PCR Negative (Negative); Influenza B QL RT-PCR Negative (Negative); RSV RNA, RT-PCR Negative (Negative); SARS-CoV-2 RNA PCR Negative (Negative)
[2024-06-29 21:13] LABS: NT Pro B Type Natriuretic Pept 1070 pg/mL (19.9-100); Troponin I < 0.012 ng/mL (0.000-0.034)
[2024-06-29] MEDS: ONDANSETRON INJ 4 MG/2 ML VIAL IV PUSH (22:20)
--- NOTE | 2024-06-29 22:50 | PC.NURSE ---
This RN tried to call Gabi at [facility] for update on pt POC. Gabi did not answer
[2024-06-29] MEDS: SODIUM CHLORIDE 0.9% IV 1,000 ML 100 ML IV CONT (23:07)
--- NOTE | 2024-06-29 23:13 | ADMGEN ---
This patient, Kenton Wilhelm, was admitted to Medical Room 342-01. Patient/family oriented to hospital policies and general routines including ID bracelet, bed and alarms, visiting hours, pain management, procedures, bathroom and other care routines, personal items, smoking policy, room service/diet, and visiting hours. Information on how to activate the Rapid Response Team has been discussed. Patient/Family are encouraged to report perceived risks to care and to ask questions if they do not understand what they are told or what they should do.
[2024-06-30] VITALS (10 sets, daily range): BP systolic 128–150; BP diastolic 53–72; PULSE 69–102; RESP 16–20; TEMP 36.1–36.7; O2SAT 93–100; BMI 25.6
[2024-06-30 00:57] LABS: Hematocrit 31.3 % (37.0-47.0); Hemoglobin 10.2 g/dL (12.0-15.0)
--- NOTE | 2024-06-30 04:02 | PM.IMHP ---
H&P: HPI History of Present Illness Date/Time: 06/30/24 04:02 Chief Complaint: Vomited blood Narrative: 83-year-old female with past medical history of dementia, large hiatal hernia, paroxysmal atrial fibrillation on chronic anticoagulation, CHF, chronic kidney disease stage 3, GERD and iron deficiency anemia who [facility] due to suspected GI bleed. Patient reportedly vomited ?1500 mL? of coffee-ground emesis mixed with red blood. Patient has not had any further emesis since presentation to the ER. The patient's Hemoccult in the ER was reportedly positive. Patient received 2 L of IV fluids, Zofran and 40 mg of IV Protonix. The patient's initial hemoglobin on presentation was 12.1 which is your the patient baseline which appears to run between 12.4 and 13.3. 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, 2019 Thoracic compression fracture T10 Essential hypertension Osteoporosis Frequent urinary tract infections history of ESBL E coli infection March 2018 Seizure disorder Schizoaffective disorder Hyperlipidemia Depression Dementia Paroxysmal atrial fibrillation Surgical History Surgical History History of arthroscopy of left shoulder History of total left hip arthroplasty (2015) History of bladder suspension procedure History of hysterectomy Family History Family History Sibling Dementia Cerebrovascular accident Sibling Acute myocardial infarction Mother Cirrhosis Father Emphysema of lung Social History Social History Social History: Surrogate medical decision maker: Cameron Naranjo. Code status: Do not resuscitate. Smoking packs per day: 1 Smoking cigarettes per day: 20.0 Years smoked: 10 Smoking pack-years: 10.00 Smoking status: Unknown if ever smoked Second hand tobacco smoke exposure: No Alcohol intake: unknown Substance use: unknown Substance use type: does not use Do You Feel Safe in your Home?: Yes Lack of Transportation: No Lack of Food: Never True Current Housing: I Have Housing Concerned About Future Housing: No Difficulty Paying Gas/Electric Bills: No Difficulty Paying for Meds: No Currently Unemployed: No Education: High School Diploma/GED Difficulty w/ Childcare or Family Care: No Additional living arrangements comments: . Resident at [facility]. 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: No Agree to blood products: Yes Meds Home Medications and Allergies Home Medications ?Medication ?Instructions ?Recorded ?Confirmed ?Type cholecalciferol (vitamin D3) 1,250 50,000 unit PO WEEKLY 03/20/19 06/29/24 History mcg (50,000 unit) tablet cyanocobalamin (vitamin B-12) 1,000 mcg PO DAILY 03/20/19 06/29/24 History 1,000 mcg capsule donepezil 10 mg tablet 10 mg PO HS 03/20/19 06/29/24 History polyethylene glycol 3350 17 17 g PO DAILY PRN Constipation 03/20/19 06/29/24 History gram/dose oral powder (Miralax) duloxetine 60 mg capsule,delayed 60 mg PO DAILY 07/16/21 06/29/24 History release famotidine 20 mg disintegrating 20 mg PO BID 07/16/21 06/29/24 History tablet lamotrigine 100 mg tablet 100 mg PO DAILY 07/16/21 06/29/24 History levetiracetam 250 mg tablet 250 mg PO BID 07/16/21 06/29/24 History (Keppra) melatonin 3 mg tablet 3 mg PO HS 07/16/21 06/29/24 History cranberry fruit 450 mg tablet 450 mg PO DAILY 04/05/22 06/29/24 History (cranberry) fluticasone propionate 50 2 spray intranasal DAILY 04/05/22 06/29/24 History mcg/actuation nasal spray,suspension (Allergy Relief (fluticasone)) mirabegron 25 mg tablet,extended 25 mg PO DAILY 04/05/22 06/29/24 History release 24 hr (Myrbetriq) Marisol-Tussin 5 ml PO Q6H PRN Congestion 09/13/22 06/29/24 History acetaminophen 325 mg tablet 650 mg PO Q4H PRN Pain (Scale 09/13/22 06/29/24 History Score 1-3) lorazepam 0.5 mg tablet 0.5 mg PO TID 09/13/22 06/29/24 History magnesium oxide 1 tablet PO DAILY 09/13/22 06/29/24 History potassium chloride 20 mEq 20 meq PO BID 09/13/22 06/29/24 History tablet,extended release(part/cryst) (Klor-Con M) ferrous sulfate 325 mg (65 mg 325 mg PO DAILY 30 days #30 tabs 09/17/22 06/29/24 Rx iron) tablet,delayed release sennosides 8.6 mg-docusate sodium 1 tab-cap PO DAILY 06/06/23 06/29/24 History 50 mg tablet (Senna Plus) apixaban 5 mg tablet (Eliquis) 5 mg PO Q12HR #60 tabs 06/13/23 06/29/24 Rx diltiazem HCl 120 mg 120 mg PO DAILY #30 caps 06/13/23 06/29/24 Rx capsule,extended release 24 hr furosemide 40 mg tablet 40 mg PO DAILY #30 tabs 06/13/23 06/29/24 Rx omeprazole 40 mg capsule,delayed 40 mg PO BID #60 caps 04/17/24 06/29/24 Rx release cetirizine 10 mg tablet (24Hour 10 mg PO DAILY 05/21/24 06/29/24 History Allergy) clobetasol 0.05 % topical cream 1 applic topical DAILY 05/21/24 06/29/24 History pantoprazole 20 mg tablet,delayed 20 mg PO BID 06/29/24 06/29/24 History release Allergies Allergy/AdvReac Type Severity Reaction Status Date / Time sertraline Allergy Severe Unknown Verified 06/20/24 13:15 hydromorphone Allergy Intermediate Unknown Verified 06/20/24 13:15 Vital Signs Vital Signs - 24 hr 06/29/24 18:16 06/29/24 18:27 06/29/24 18:30 Temperature 98.5 F Pulse Rate 97 101 H Respiratory Rate 18 23 H Blood Pressure 135/67 Pulse Oximetry 92 92 91 Oxygen Delivery Room Air Oxygen Flow Rate 06/29/24 18:31 06/29/24 18:45 02/22/25 18:46 Temperature Pulse Rate 98 95 93 Respiratory Rate 15 20 17 Blood Pressure 126/74 141/64 H Pulse Oximetry 93 98 98 Oxygen Delivery Oxygen Flow Rate 06/29/24 18:47 06/29/24 18:53 06/29/24 19:00 Temperature Pulse Rate 98 80 Respiratory Rate 17 21 H Blood Pressure 141/64 H Pulse Oximetry 100 97 98 Oxygen Delivery Nasal Cannula Oxygen Flow Rate 2 06/29/24 19:01 06/29/24 19:15 06/29/24 19:16 Temperature Pulse Rate 84 85 86 Respiratory Rate 21 H 18 18 Blood Pressure 139/57 L 144/60 H Pulse Oximetry 99 99 98 Oxygen Delivery Oxygen Flow Rate 06/29/24 19:30 06/29/24 19:31 06/29/24 19:45 Temperature Pulse Rate 81 88 82 Respiratory Rate 21 H 17 26 H Blood Pressure 127/65 Pulse Oximetry 98 98 98 Oxygen Delivery Oxygen Flow Rate 06/29/24 19:46 06/29/24 20:15 06/29/24 20:25 Temperature Pulse Rate 82 88 85 Respiratory Rate 22 H 21 H 17 Blood Pressure 121/48 L 136/77 Pulse Oximetry 98 100 99 Oxygen Delivery Oxygen Flow Rate 06/29/24 20:30 06/29/24 20:31 06/29/24 20:45 Temperature Pulse Rate 80 81 85 Respiratory Rate 20 21 H 17 Blood Pressure 138/55 L Pulse Oximetry 100 99 Oxygen Delivery Oxygen Flow Rate 06/29/24 20:46 06/29/24 20:47 06/29/24 21:20 Temperature Pulse Rate 81 82 92 Respiratory Rate 19 19 21 H Blood Pressure 122/48 L Pulse Oximetry 100 100 91 Oxygen Delivery Oxygen Flow Rate 06/29/24 21:30 06/29/24 21:45 06/29/24 22:00 Temperature Pulse Rate 78 80 84 Respiratory Rate 16 17 22 H Blood Pressure Pulse Oximetry 98 99 100 Oxygen Delivery Oxygen Flow Rate 06/29/24 22:15 06/29/24 22:30 06/29/24 23:01 Temperature Pulse Rate 78 78 Respiratory Rate 19 19 Blood Pressure 122/48 L Pulse Oximetry 100 100 100 Oxygen Delivery Oxygen Flow Rate 06/29/24 23:41 06/30/24 00:14 Temperature 97.5 F L Pulse Rate 78 Respiratory Rate 20 Blood Pressure 136/53 L Pulse Oximetry 94 100 Oxygen Delivery Nasal Cannula Oxygen Flow Rate 2 H&P: Results Labs Labs: Laboratory Tests 06/30/24 00:51 06/29/24 18:49 06/29/24 06/29/24 06/29/24 18:49 19:15 20:43 WBC 9.3 RBC 3.76 L Hgb 12.1 Hct 36.8 L MCV 97.9 MCH 32.2 MCHC 32.9 RDW 15.0 H Plt Count 310 MPV 9.8 Immature Gran % (Auto) 0.5 Neut % (Auto) 89.8 H Lymph % (Auto) 4.[address] % (Auto) 4.9 Eos % (Auto) 0.0 Baso % (Auto) 0.8 Lymph # (Auto) 0.[address] # (Auto) 0.5 Eos # (Auto) 0.0 Baso # (Auto) 0.1 Abs Immat Gran (auto) 0.05 H Absolute Neuts (auto) 8.4 H Absolute Nucleated RBC 0.020 H Nucleated RBC % 0.2 PT 17.4 H INR 1.4 APTT 38.3 H Sodium 140 Potassium 4.0 Chloride 102 Carbon Dioxide 26 Anion Gap 12 BUN 30 H Creatinine 1.19 H Estim Creat Clear Calc 26 Estimated GFR 43 L Glucose 123 H Calcium 8.9 Total Bilirubin 0.7 AST 26 ALT 16 Alkaline Phosphatase 110 Troponin I < 0.012 NT-Pro-B Natriuret Pep 1070 H Total Protein 7.0 Albumin 4.0 Urine Color Yellow Urine Appearance Clear Urine pH 5.5 Ur Specific [place] 1.015 Urine Protein Negative Urine Glucose (UA) Negative Urine Ketones Negative Ur Blood (Man) Non-hemolyzed trace H Urine Nitrate Negative Urine Bilirubin Negative Urine Urobilinogen 0.2 Add Ur Microanalysis Reviewed Leukocyte Esterase Rfl 2+ H Urine RBC 3-5 H Urine WBC 21-50 H Ur Squamous Epith Cells None seen Urine Bacteria Rare Urine Casts >20 Hyaline Casts Present Influenza A (RT-PCR) Negative Influenza B (RT-PCR) Negative RSV (RT-PCR) Negative SARS-CoV-2 RNA (RT-PCR) Negative Blood Type A Positive Antibody Screen Negative 06/30/24 00:51 WBC RBC Hgb 10.2 L Hct 31.3 L MCV MCH MCHC RDW Plt Count MPV Immature Gran % (Auto) Neut % (Auto) Lymph % (Auto) [place] % (Auto) Eos % (Auto) Baso % (Auto) Lymph # (Auto) [place] # (Auto) Eos # (Auto) Baso # (Auto) Abs Immat Gran (auto) Absolute Neuts (auto) Absolute Nucleated RBC Nucleated RBC % PT INR APTT Sodium Potassium Chloride Carbon Dioxide Anion Gap BUN Creatinine Estim Creat Clear Calc Estimated GFR Glucose Calcium Total Bilirubin AST ALT Alkaline Phosphatase Troponin I NT-Pro-B Natriuret Pep Total Protein Albumin Urine Color Urine Appearance Urine pH Ur Specific [place] Urine Protein Urine Glucose (UA) Urine Ketones Ur Blood (Man) Urine Nitrate Urine Bilirubin Urine Urobilinogen Add Ur Microanalysis Leukocyte Esterase Rfl Urine RBC Urine WBC Ur Squamous Epith Cells Urine Bacteria Urine Casts Hyaline Casts Influenza A (RT-PCR) Influenza B (RT-PCR) RSV (RT-PCR) SARS-CoV-2 RNA (RT-PCR) Blood Type Antibody Screen Impressions Head CT 06/29/24 20:12 IMPRESSION: 1. 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 2. Stable moderate nonspecific cerebral white matter disease, which likely represents chronic small vessel ischemic disease. Abdomen/Pelvis CT 06/29/24 20:17 IMPRESSION: 1. Gallbladder distention, which may be secondary to fasting. Correlate with physical exam to exclude acute cholecystitis. 2. Large sliding hiatal hernia. 3. Chronic soft tissue thickening inferior to the bladder with calcifications, which may be stones in a urethral diverticulum. EKG: Sinus rhythm 79, left bundle-branch block QTC 467. Cardiology interpretation pending All imaging and EKGs personally reviewed and interpreted. And unless stated otherwise agree with radiologic and cardiology interpretation. Assessment and Plan Assessment and plan (1) Acute upper GI bleed: Code(s): K92.2 - Gastrointestinal hemorrhage, unspecified Status: Acute (2) Chronic anticoagulation: Code(s): Z79.01 - shelter (current) use of anticoagulants Status: Acute (3) GERD (gastroesophageal reflux disease): Qualifiers: Esophagitis presence: esophagitis presence not specified Qualified Code(s): K21.9 - Gastro-esophageal reflux disease without esophagitis Code(s): K21.9 - Gastro-esophageal reflux disease without esophagitis Status: Chronic (4) Hiatal hernia: Code(s): K44.9 - Diaphragmatic hernia without obstruction or gangrene Status: Acute Assessment and Plan: Large (5) Acute kidney injury superimposed on stage 3a chronic kidney disease: Code(s): N17.9 - Acute kidney failure, unspecified; N18.31 - Chronic kidney disease, stage 3a Status: Acute (6) Dementia: Qualifiers: Dementia type: Alzheimer's Alzheimer's disease onset: late onset Dementia severity: moderate Dementia behavioral or psychological symptom: with other behavioral disturbance Qualified Code(s): G30.1 - Alzheimer's disease with late onset; F02.B18 - Dementia in other diseases classified elsewhere, moderate, with other behavioral disturbance Code(s): F03.90 - Unspecified dementia, unspecified severity, without behavioral disturbance, psychotic disturbance, mood disturbance, and anxiety Status: Acute (7) Seizure disorder: Code(s): G40.909 - Epilepsy, unspecified, not intractable, without status epilepticus Status: Chronic Quality VTE Prophylaxis VTE prophylaxis: mechanical ordered (SCDs)
[2024-06-30 06:31] LABS: Hematocrit 31.9 % (37.0-47.0); Hemoglobin 9.9 g/dL (12.0-15.0); Mean Platelet Volume 9.7 fl (7.4-10.4); Platelet Count Result 211 k/mm3 (150-375); Red Blood Count 3.19 M/mm3 (4.2-5.4); White Blood Count 7.4 K/mm3 (4.5-10.0)
[2024-06-30 06:45] LABS: Anion Gap 9 mmol/L (4-12); Blood Urea Nitrogen 24 mg/dL (7-17); Calcium 8.2 mg/dL (8.4-10.2); Carbon Dioxide 26 mmol/L (22-30); Chloride 107 mmol/L (98-107); Estimated CRCL calculation 31 ml/min; Estimated Glomerular Filt Rate 54; Glucose 93 mg/dL (65-110); Potassium 3.7 mmol/L (3.4-5.0); Sodium 142 mmol/L (137-145)
--- NOTE | 2024-06-30 06:59 | P.PNIM_ITS ---
Progress Note: A&P Assessment and Plan (1) Acute upper GI bleed: Code(s): K92.2 - Gastrointestinal hemorrhage, unspecified Status: Acute Assessment and Plan: Patient reportedly vomited ?1500 mL? of coffee-ground emesis mixed with red blood. Hemoccult in the ER was reportedly positive. Patient received 2 L of IV fluids, Zofran and 40 mg of IV Protonix in the ED. Patient has not had any further emesis since presentation to the ER. - H/H 12.1/36.8 on admission, now 9.9/31.9 on am labs. Possible dilution from fluid boluses, however concerning GI bleed Repeat H/H 10.6/33.7 - Head CT: 1. 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 2. Stable moderate nonspecific cerebral white matter disease, which likely represents chronic small vessel ischemic disease. - Abdomen/pelvis CT: 1. Gallbladder distention, which may be secondary to fasting. Correlate with physical exam to exclude acute cholecystitis. 2. Large sliding hiatal hernia. 3. Chronic soft tissue thickening inferior to the bladder with calcifications, which may be stones in a urethral diverticulum. - Pantoprazole BID - Diet: NPO - DVT Px: SCDs, holding patients eliquis for acute GI bleed - Monitor serum electrolytes, CBC, hemoglobin/hematocrit q.8 hours. 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 - SCD in place for DVT ppx (3) GERD (gastroesophageal reflux disease): Qualifiers: Esophagitis presence: esophagitis presence not specified Qualified Code(s): K21.9 - Gastro-esophageal reflux disease without esophagitis Code(s): K21.9 - Gastro-esophageal reflux disease without esophagitis Status: Chronic Assessment and Plan: Chronic, continue pantoprazole (4) Paroxysmal atrial fibrillation: Code(s): I48.0 - Paroxysmal atrial fibrillation Status: Chronic Assessment and Plan: EKG: Sinus rhythm HR 79 Echo 05/27/24: LVEF 50-55% with grade I diastolic dysfunction Continue home diltiazem 120 mg daily Holding eliquis 5 mg BID for GI bleed, SCD for DVT ppx (5) Acute kidney injury superimposed on stage 3a chronic kidney disease: Code(s): N17.9 - Acute kidney failure, unspecified; N18.31 - Chronic kidney disease, stage 3a Status: Acute Assessment and Plan: Slight EDITH on admission likely secondary to dehydration BUN/Cr 30/1.19 with GFR 43 on admission, previously WNL Given 2 L of IV fluids in the ED - BUN/Cr 24/0.98 with GFR 54 on am labs - Avoid nephrotoxic medications - Renally dose medications (6) Hiatal hernia: Code(s): K44.9 - Diaphragmatic hernia without obstruction or gangrene Status: Acute Assessment and Plan: Chronic, seen previously on chest XR in July 2023 - Abdomen/pelvis CT: Large sliding hiatal hernia (7) Seizure disorder: Code(s): G40.909 - Epilepsy, unspecified, not intractable, without status epilepticus Status: Chronic Assessment and Plan: Chronic, continue current home medications (8) Dementia: Qualifiers: Alzheimer's disease onset: late onset Dementia behavioral or psychological symptom: with other behavioral disturbance Dementia severity: moderate Dementia type: Alzheimer's Qualified Code(s): G30.1 - Alzheimer's disease with late onset; F02.B18 - Dementia in other diseases classified elsewhere, moderate, with other behavioral disturbance Code(s): F03.90 - Unspecified dementia, unspecified severity, without behavioral disturbance, psychotic disturbance, mood disturbance, and anxiety Status: Acute Time Spent With Patient Time with patient: 25 - 35 minutes Subjective Date/time seen: 06/30/24 06:59 Interval history: 83-year-old female with past medical history of dementia, large hiatal hernia, paroxysmal atrial fibrillation on chronic anticoagulation, CHF, chronic kidney disease stage 3, GERD and iron deficiency anemia who presented to the ER from care home facility via EMS due to suspected GI bleed. Patient is pleasant lying comfortably in bed. She continues to endorse slight abdominal pain more so to the left lower quadrant. She denies any nausea vomiting or bloody stools today. Nursing confirmed. Patient had other complaints chest pain, palpitations, shortness of breath. GI consulted, pending recommendations. Review of Systems Review of Systems: All systems reviewed & are unremarkable except as noted in HPI and below Exam Narrative: AF HR 69 RR 16 Spo2 94 BP 128/53 General: female in no acute respiratory distress who is nontoxic appearing, lying semi recumbent in bed. HEENT: Normocephalic. Atraumatic. Extraocular movement intact. Sclera clear and anicteric. No facial asymmetry. Chest: Lungs are clear to auscultation bilaterally. No wheezes or crackles. CV: Heart was regular rate and rhythm. S1-S2. No murmurs, gallops, or rubs. Abd: Abdomen was soft. Tender to LLQ. Nondistended. Positive bowel sounds. Ext: No clubbing, cyanosis, or edema. 2+ DP pulses bilaterally. Neuro: Patient is alert and oriented x1. Speech is clear. Objective Data Vital Signs Vital Signs: Vital Signs - 24 hr 06/29/24 18:16 06/29/24 18:27 06/29/24 18:30 Temperature 98.5 F Pulse Rate 97 101 H Respiratory Rate 18 23 H Blood Pressure 135/67 Pulse Oximetry 92 92 91 Oxygen Delivery Room Air Oxygen Flow Rate 06/29/24 18:31 06/29/24 18:45 06/29/24 18:46 Temperature Pulse Rate 98 95 93 Respiratory Rate 15 20 17 Blood Pressure 126/74 141/64 H Pulse Oximetry 93 98 98 Oxygen Delivery Oxygen Flow Rate 06/29/24 18:47 06/29/24 18:53 06/29/24 19:00 Temperature Pulse Rate 98 80 Respiratory Rate 17 21 H Blood Pressure 141/64 H Pulse Oximetry 100 97 98 Oxygen Delivery Nasal Cannula Oxygen Flow Rate 2 06/29/24 19:01 06/29/24 19:15 06/29/24 19:16 Temperature Pulse Rate 84 85 86 Respiratory Rate 21 H 18 18 Blood Pressure 139/57 L 144/60 H Pulse Oximetry 99 99 98 Oxygen Delivery Oxygen Flow Rate 06/29/24 19:30 06/29/24 19:31 06/29/24 19:45 Temperature Pulse Rate 81 88 82 Respiratory Rate 21 H 17 26 H Blood Pressure 127/65 Pulse Oximetry 98 98 98 Oxygen Delivery Oxygen Flow Rate 06/29/24 19:46 06/29/24 20:15 06/29/24 20:25 Temperature Pulse Rate 82 88 85 Respiratory Rate 22 H 21 H 17 Blood Pressure 121/48 L 136/77 Pulse Oximetry 98 100 99 Oxygen Delivery Oxygen Flow Rate 06/29/24 20:30 06/29/24 20:31 06/29/24 20:45 Temperature Pulse Rate 80 81 85 Respiratory Rate 20 21 H 17 Blood Pressure 138/55 L Pulse Oximetry 100 99 Oxygen Delivery Oxygen Flow Rate 06/29/24 20:46 06/29/24 20:47 06/29/24 21:20 Temperature Pulse Rate 81 82 92 Respiratory Rate 19 19 21 H Blood Pressure 122/48 L Pulse Oximetry 100 100 91 Oxygen Delivery Oxygen Flow Rate 06/29/24 21:30 06/29/24 21:45 06/29/24 22:00 Temperature Pulse Rate 78 80 84 Respiratory Rate 16 17 22 H Blood Pressure Pulse Oximetry 98 99 100 Oxygen Delivery Oxygen Flow Rate 06/29/24 22:15 06/29/24 22:30 06/29/24 23:01 Temperature Pulse Rate 78 78 Respiratory Rate 19 19 Blood Pressure 122/48 L Pulse Oximetry 100 100 100 Oxygen Delivery Oxygen Flow Rate 06/29/24 23:41 06/30/24 00:00 06/30/24 00:14 Temperature 97.5 F L Pulse Rate 74 78 Respiratory Rate 20 Blood Pressure 136/53 L Pulse Oximetry 94 100 Oxygen Delivery Nasal Cannula Oxygen Flow Rate 2 06/30/24 04:00 Temperature Pulse Rate 73 Respiratory Rate Blood Pressure Pulse Oximetry Oxygen Delivery Oxygen Flow Rate Intake/Output Intake/Output: Intake & Output 06/27/24 06/28/24 06/29/24 06/30/24 23:59 23:59 23:59 23:59 Intake Total 1000 Output Total 25 Balance 975 Meds/Results Medications: Active Medications Generic Name Dose Route Start Last Admin Trade Name Freq PRN Reason Stop Dose Admin Acetaminophen 650 mg 06/30/24 04:13 Acetaminophen 325 Mg Tablet PO Q4H PRN Pain (Scale Score 1-3) Dextrose 12.5 gm 06/29/24 21:41 Dextrose 50% 25 Gm/50 Ml Syringe IV PUSH PRN PRN Hypoglycemia Protocol Diltiazem HCl 120 mg 06/30/24 09:00 Diltiazem Hcl Cd 120 Mg Cap.24hr PO DAILY [facility] Duloxetine HCl 60 mg 06/30/24 09:00 Duloxetine Hcl 60 Mg Capsule.Dr PO DAILY [facility] Famotidine 20 mg 06/30/24 09:00 Famotidine 20 Mg/2 Ml Vial IV PUSH Q12HR [facility] Fluticasone Propionate 2 spray 06/30/24 09:00 Fluticasone Propionate 0.05% Na Spr 16 Gm Btl (*Bkc) NASAL DAILY [facility] Glucagon 1 mg 06/29/24 21:41 Glucagon For Inj 1 Mg Vial IM PRN PRN Hypoglycemia Protocol Glucose 15 gm 06/29/24 21:41 Glucose Oral Gel 15 Gm Of Glucse In 37.5 Gm Tube PO PRN PRN Hypoglycemia Protocol Dextrose 1,000 mls @ 100 mls/hr 06/29/24 21:41 Dextrose 5% 1,000 Ml IVPB PRN PRN Hypoglycemia Protocol Lamotrigine 100 mg 06/30/24 09:00 Lamotrigine 100 Mg Tablet PO DAILY [facility] Levetiracetam 250 mg 06/30/24 09:00 Levetiracetam 250 Mg Tablet PO Q12HR [facility] Lorazepam 0.5 mg 06/30/24 09:00 Lorazepam (*Crx) 0.5 Mg Tablet PO TID [facility] Mirabegron 25 mg 06/30/24 09:00 Mirabegron 25 Mg Er Tablet PO DAILY [facility] Ondansetron HCl 4 mg 06/29/24 21:41 Ondansetron Inj 4 Mg/2 Ml Vial IV PUSH Q4H PRN Nausea Pantoprazole Sodium 40 mg 06/30/24 09:00 Pantoprazole Sodium Iv 40 Mg Vial IV PUSH BID [facility] Radiology Results: ITS Impressions Head CT 06/29/24 20:12 IMPRESSION: 1. 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 2. Stable moderate nonspecific cerebral white matter disease, which likely represents chronic small vessel ischemic disease. Abdomen/Pelvis CT 06/29/24 20:17 IMPRESSION: 1. Gallbladder distention, which may be secondary to fasting. Correlate with physical exam to exclude acute cholecystitis. 2. Large sliding hiatal hernia. 3. Chronic soft tissue thickening inferior to the bladder with calcifications, which may be stones in a urethral diverticulum. Labs Labs: Laboratory Results - last 24 hr 06/29/24 06/29/24 06/29/24 18:49 19:15 20:43 WBC 9.3 RBC 3.76 L Hgb 12.1 Hct 36.8 L MCV 97.9 MCH 32.2 MCHC 32.9 RDW 15.0 H Plt Count 310 MPV 9.8 Immature Gran % (Auto) 0.5 Neut % (Auto) 89.8 H Lymph % (Auto) 4.0 L [place] % (Auto) 4.9 Eos % (Auto) 0.0 Baso % (Auto) 0.8 Lymph # (Auto) 0.37 L [place] # (Auto) 0.5 Eos # (Auto) 0.0 Baso # (Auto) 0.1 Abs Immat Gran (auto) 0.05 H Absolute Neuts (auto) 8.4 H Absolute Nucleated RBC 0.020 H Nucleated RBC % 0.2 PT 17.4 H INR 1.4 APTT 38.3 H Sodium 140 Potassium 4.0 Chloride 102 Carbon Dioxide 26 Anion Gap 12 BUN 30 H Creatinine 1.19 H Estim Creat Clear Calc 26 Estimated GFR 43 L Glucose 123 H Calcium 8.9 Total Bilirubin 0.7 AST 26 ALT 16 Alkaline Phosphatase 110 Troponin I < 0.012 NT-Pro-B Natriuret Pep 1070 H Total Protein 7.0 Albumin 4.0 Urine Color Yellow Urine Appearance Clear Urine pH 5.5 Ur Specific [place] 1.015 Urine Protein Negative Urine Glucose (UA) Negative Urine Ketones Negative Ur Blood (Man) Non-hemolyzed trace H Urine Nitrate Negative Urine Bilirubin Negative Urine Urobilinogen 0.2 Add Ur Microanalysis Reviewed Leukocyte Esterase Rfl 2+ H Urine RBC 3-5 H Urine WBC 21-50 H Ur Squamous Epith Cells None seen Urine Bacteria Rare Urine Casts >20 Hyaline Casts Present Influenza A (RT-PCR) Negative Influenza B (RT-PCR) Negative RSV (RT-PCR) Negative SARS-CoV-2 RNA (RT-PCR) Negative Blood Type A Positive Antibody Screen Negative 06/30/24 06/30/24 00:51 06:04 WBC 7.4 RBC 3.19 L Hgb 10.2 L 9.9 L Hct 31.3 L 31.9 L MCV 100.0 MCH 31.0 MCHC 31.0 L RDW 15.0 H Plt Count 211 MPV 9.7 Immature Gran % (Auto) Neut % (Auto) Lymph % (Auto) [place] % (Auto) Eos % (Auto) Baso % (Auto) Lymph # (Auto) [place] # (Auto) Eos # (Auto) Baso # (Auto) Abs Immat Gran (auto) Absolute Neuts (auto) Absolute Nucleated RBC Nucleated RBC % PT INR APTT Sodium 142 Potassium 3.7 Chloride 107 Carbon Dioxide 26 Anion Gap 9 BUN 24 H Creatinine 0.98 Estim Creat Clear Calc 31 Estimated GFR 54 L Glucose 93 Calcium 8.2 L Total Bilirubin AST ALT Alkaline Phosphatase Troponin I NT-Pro-B Natriuret Pep Total Protein Albumin Urine Color Urine Appearance Urine pH Ur Specific [place] Urine Protein Urine Glucose (UA) Urine Ketones Ur Blood (Man) Urine Nitrate Urine Bilirubin Urine Urobilinogen Add Ur Microanalysis Leukocyte Esterase Rfl Urine RBC Urine WBC Ur Squamous Epith Cells Urine Bacteria Urine Casts Hyaline Casts Influenza A (RT-PCR) Influenza B (RT-PCR) RSV (RT-PCR) SARS-CoV-2 RNA (RT-PCR) Blood Type Antibody Screen Quality VTE Prophylaxis VTE prophylaxis: mechanical ordered (SCDs)
[2024-06-30] MEDS: FLUTICASONE PROPIONATE 0.05% NA SPR 16 GM BTL (*BKC) 2 SPRAY NASAL (09:01)
--- NOTE | 2024-06-30 11:34 | PC.NURSE ---
RN spoke with hospitalist Arabella and patient to remain NPO until consulted physician Jese see's patient.
[2024-06-30] MEDS: PANTOPRAZOLE SODIUM IV 40 MG VIAL IV PUSH ×2 (12:30→17:59)
[2024-06-30 13:47] LABS: Hematocrit 33.7 % (37.0-47.0); Hemoglobin 10.6 g/dL (12.0-15.0)
[2024-06-30] MEDS: LORazepam (*CRX) 0.5 MG TABLET PO (17:59)
--- NOTE | 2024-06-30 18:26 | WPDGICN ---
Assessment and Plan Assessment and plan (1) Coffee ground emesis: Code(s): K92.0 - Hematemesis Status: Acute Assessment and Plan: h/o cough with phlegm for which has seen also ENT CT scan noted hiatal hernia egd to assess if ulcer, gastritis, tesha lesion, etc npo after midnight (2) Hiatal hernia: Code(s): K44.9 - Diaphragmatic hernia without obstruction or gangrene Status: Acute Assessment and Plan: wonder if can explain part of symptoms she is too high risk for surgery (this has been discussed previously) (3) Gastroesophageal reflux disease: Qualifiers: Esophagitis presence: with esophagitis Esophagitis bleeding: without hemorrhage Qualified Code(s): K21.00 - Gastro-esophageal reflux disease with esophagitis, without bleeding Code(s): K21.9 - Gastro-esophageal reflux disease without esophagitis Status: Acute (4) Chronic anticoagulation: Code(s): Z79.01 - manager intermediate (current) use of anticoagulants Status: Acute Assessment and Plan: on hold for now (5) Acute blood loss anemia: Code(s): D62 - Acute posthemorrhagic anemia Status: Acute Assessment and Plan: monitor h/h GI Consult Note Consult date/time: 06/30/24 18:26 Reason for consult: coffee ground emesis HPI: Kenton Wilhelm is a 83 year old female with past medical surgical history of compression fractures within the lower thoracic spine, with evidence of prior vertebral augmentation. She was recently seen in our office because GERD treated with omeprazole 40 mg BID but no improvement in symptoms. She had MBS and chest CT and has been complaining of coughing up phlegm constantly that is thick mucous, she feels like its sinus drainage. Also report of throwing up daily and recently had dark emesis then admitted to hospital. She has seen ENT CLINICAL LABORATORY DIRECTOR Anabell Gracia for this issue and had CT of sinuses. She had EGD: 07/16/2021 (Dr. Peacock) with medium hiatal hernia with normal esophagus and stomach. COLONOSCOPY: 09/2022 (Dr. Vicente) medium-sized uncomplicated internal hemorrhoids in the rectum and a small diverticulum in the sigmoid colon. 05/26/2024 CT diagnostic chest Large hiatal hernia, extending to the left of midline, increased in size from previous examination performed 09/21/2023 with adjacent compressive atelectasis. Hgb from 12 to 10. Also on eliquis. Review of Systems Constitutional: Constitutional: Denies chills Eyes: Eyes: Denies blurry vision ENT: Reports Normal hearing present Cardiovascular: Cardiovascular: Denies chest pain Respiratory: Respiratory: Reports cough Gastrointestinal: Gastrointestinal: Reports vomiting Genitourinary: Genitourinary: Denies flank pain Musculoskeletal: Musculoskeletal: Denies neck pain Integumentary/Breasts: Skin/Breast: Denies rash Neurologic: Denies Abnormal speech present Psychiatric: Psychiatric: Denies behavioral changes [facility] Past Medical History Medical History (Updated 06/30/24 @ 18:30 by Jose Roberto Coker MD) Coffee ground emesis CKD (chronic kidney disease) stage 3, GFR 30-59 ml/min Psoas abscess, left 2021 Mild aortic stenosis Chronic anticoagulation Gastroesophageal reflux disease Congestive heart failure Pneumonia due to COVID-19 virus Anxiety Vitamin D deficiency Orthostatic hypotension possible 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, 2019 Thoracic compression fracture T10 Essential hypertension Osteoporosis Frequent urinary tract infections history of ESBL E coli infection March 2018 Seizure disorder Schizoaffective disorder Hyperlipidemia Depression Dementia Paroxysmal atrial fibrillation Surgical History Surgical History History of arthroscopy of left shoulder History of total left hip arthroplasty (2015) History of bladder suspension procedure History of hysterectomy Family History Family History Sibling Dementia Cerebrovascular accident Sibling Acute myocardial infarction Mother Cirrhosis Father Emphysema of lung Social History Social History Social History: Surrogate medical decision maker: Cameron Naranjo. Code status: Do not resuscitate. Smoking packs per day: 1 Smoking cigarettes per day: 20.0 Years smoked: 10 Smoking pack-years: 10.00 Smoking status: Unknown if ever smoked Second hand tobacco smoke exposure: No Alcohol intake: unknown Substance use: unknown Substance use type: does not use Do You Feel Safe in your Home?: Yes Lack of Transportation: No Lack of Food: Never True Current Housing: I Have Housing Concerned About Future Housing: No Difficulty Paying Gas/Electric Bills: No Difficulty Paying for Meds: No Currently Unemployed: No Education: High School Diploma/GED Difficulty w/ Childcare or Family Care: No Additional living arrangements comments: . Resident at [facility]. 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: No Agree to blood products: Yes Meds Home Medications and Allergies Home Medications ?Medication ?Instructions ?Recorded ?Confirmed ?Type cholecalciferol (vitamin D3) 1,250 50,000 unit PO WEEKLY 03/20/19 06/29/24 History mcg (50,000 unit) tablet cyanocobalamin (vitamin B-12) 1,000 mcg PO DAILY 03/20/19 06/29/24 History 1,000 mcg capsule donepezil 10 mg tablet 10 mg PO HS 03/20/19 06/29/24 History polyethylene glycol 3350 17 17 g PO DAILY PRN Constipation 03/20/19 06/29/24 History gram/dose oral powder (Miralax) duloxetine 60 mg capsule,delayed 60 mg PO DAILY 07/16/21 06/29/24 History release famotidine 20 mg disintegrating 20 mg PO BID 07/16/21 06/29/24 History tablet lamotrigine 100 mg tablet 100 mg PO DAILY 07/16/21 06/29/24 History levetiracetam 250 mg tablet 250 mg PO BID 07/16/21 06/29/24 History (Keppra) melatonin 3 mg tablet 3 mg PO HS 07/16/21 06/29/24 History cranberry fruit 450 mg tablet 450 mg PO DAILY 04/05/22 06/29/24 History (cranberry) fluticasone propionate 50 2 spray intranasal DAILY 04/05/22 06/29/24 History mcg/actuation nasal spray,suspension (Allergy Relief (fluticasone)) mirabegron 25 mg tablet,extended 25 mg PO DAILY 04/05/22 06/29/24 History release 24 hr (Myrbetriq) Marisol-Tussin 5 ml PO Q6H PRN Congestion 09/13/22 06/29/24 History acetaminophen 325 mg tablet 650 mg PO Q4H PRN Pain (Scale 09/13/22 06/29/24 History Score 1-3) lorazepam 0.5 mg tablet 0.5 mg PO TID 09/13/22 06/29/24 History magnesium oxide 1 tablet PO DAILY 09/13/22 06/29/24 History potassium chloride 20 mEq 20 meq PO BID 09/13/22 06/29/24 History tablet,extended release(part/cryst) (Klor-Con M) ferrous sulfate 325 mg (65 mg 325 mg PO DAILY 30 days #30 tabs 09/17/22 06/29/24 Rx iron) tablet,delayed release sennosides 8.6 mg-docusate sodium 1 tab-cap PO DAILY 06/06/23 06/29/24 History 50 mg tablet (Senna Plus) apixaban 5 mg tablet (Eliquis) 5 mg PO Q12HR #60 tabs 06/13/23 06/29/24 Rx diltiazem HCl 120 mg 120 mg PO DAILY #30 caps 06/13/23 06/29/24 Rx capsule,extended release 24 hr furosemide 40 mg tablet 40 mg PO DAILY #30 tabs 06/13/23 06/29/24 Rx omeprazole 40 mg capsule,delayed 40 mg PO BID #60 caps 04/17/24 06/29/24 Rx release cetirizine 10 mg tablet (24Hour 10 mg PO DAILY 05/21/24 06/29/24 History Allergy) clobetasol 0.05 % topical cream 1 applic topical DAILY 05/21/24 06/29/24 History pantoprazole 20 mg tablet,delayed 20 mg PO BID 06/29/24 06/29/24 History release Allergies Allergy/AdvReac Type Severity Reaction Status Date / Time sertraline Allergy Severe Unknown Verified 06/20/24 13:15 hydromorphone Allergy Intermediate Unknown Verified 06/20/24 13:15 Vital Signs Vital Signs - 24 hr 06/29/24 18:27 06/29/24 18:30 06/29/24 18:31 Temperature Pulse Rate 101 H 98 Respiratory Rate 23 H 15 Blood Pressure 126/74 Pulse Oximetry 92 91 93 Oxygen Delivery Oxygen Flow Rate 06/29/24 18:45 06/29/24 18:46 06/29/24 18:47 Temperature Pulse Rate 95 93 98 Respiratory Rate 20 17 17 Blood Pressure 141/64 H 141/64 H Pulse Oximetry 98 98 100 Oxygen Delivery Oxygen Flow Rate 06/29/24 18:53 06/29/24 19:00 06/29/24 19:01 Temperature Pulse Rate 80 84 Respiratory Rate 21 H 21 H Blood Pressure 139/57 L Pulse Oximetry 97 98 99 Oxygen Delivery Nasal Cannula Oxygen Flow Rate 2 06/29/24 19:15 06/29/24 19:16 06/29/24 19:30 Temperature Pulse Rate 85 86 81 Respiratory Rate 18 18 21 H Blood Pressure 144/60 H Pulse Oximetry 99 98 98 Oxygen Delivery Oxygen Flow Rate 06/29/24 19:31 06/29/24 19:45 06/29/24 19:46 Temperature Pulse Rate 88 82 82 Respiratory Rate 17 26 H 22 H Blood Pressure 127/65 121/48 L Pulse Oximetry 98 98 98 Oxygen Delivery Oxygen Flow Rate 06/29/24 20:15 06/29/24 20:25 06/29/24 20:30 Temperature Pulse Rate 88 85 80 Respiratory Rate 21 H 17 20 Blood Pressure 136/77 Pulse Oximetry 100 99 100 Oxygen Delivery Oxygen Flow Rate 06/29/24 20:31 06/29/24 20:45 06/29/24 20:46 Temperature Pulse Rate 81 85 81 Respiratory Rate 21 H 17 19 Blood Pressure 138/55 L 122/48 L Pulse Oximetry 99 100 Oxygen Delivery Oxygen Flow Rate 06/29/24 20:47 06/29/24 21:20 06/29/24 21:30 Temperature Pulse Rate 82 92 78 Respiratory Rate 19 21 H 16 Blood Pressure Pulse Oximetry 100 91 98 Oxygen Delivery Oxygen Flow Rate 06/29/24 21:45 06/29/24 22:00 06/29/24 22:15 Temperature Pulse Rate 80 84 78 Respiratory Rate 17 22 H 19 Blood Pressure Pulse Oximetry 99 100 100 Oxygen Delivery Oxygen Flow Rate 06/29/24 22:30 06/29/24 23:01 06/29/24 23:41 Temperature Pulse Rate 78 Respiratory Rate 19 Blood Pressure 122/48 L Pulse Oximetry 100 100 94 Oxygen Delivery Nasal Cannula Oxygen Flow Rate 2 06/30/24 00:00 06/30/24 00:14 06/30/24 04:00 Temperature 97.5 F L Pulse Rate 74 78 73 Respiratory Rate 20 Blood Pressure 136/53 L Pulse Oximetry 100 Oxygen Delivery Oxygen Flow Rate 06/30/24 06:00 06/30/24 09:05 06/30/24 09:05 Temperature 97.5 F L Pulse Rate 69 73 Respiratory Rate 16 Blood Pressure 128/53 L Pulse Oximetry 94 Oxygen Delivery Room Air Oxygen Flow Rate 06/30/24 12:00 06/30/24 16:38 Temperature 98.1 F Pulse Rate 74 76 Respiratory Rate 18 Blood Pressure 150/60 H Pulse Oximetry 98 Oxygen Delivery Oxygen Flow Rate Exam Const: General: comfortable and no acute distress Other: pleasant elderly HENMT: Face/Nose/Sinus: Normal nares present Eyes: General: appearance normal, both eyes and all related structures Neck: Neck: supple Resp: Auscultation: clear to auscultation bilaterally Cardio: Rate: regular rate Rhythm: regular rhythm GI: Inspection: non-distended GI Palp: Yes Soft to palpation and No Tenderness to palpation present (GI) Auscultation: normal bowel sounds Skin: General skin exam: no rashes or lesions noted Neuro: Speech: normal speech Motor exam (neuro): 5/5 motor strength present throughout Extrem: General: normal to inspection Psych: Mental Status: mental status grossly normal Results Labs 06/30/24 13:26 06/30/24 06:04 Labs: Short CBC 06/29/24 06/30/24 06/30/24 Range/Units 18:49 00:51 06:04 WBC 9.3 7.4 (4.5-10.0) K/mm3 Hgb 12.1 10.2 L 9.9 L (12.0-15.0) g/dL Hct 36.8 L 31.3 L 31.9 L (37.0-47.0) % Plt Count 310 211 (150-375) k/mm3 06/30/24 Range/Units 13:26 WBC (4.5-10.0) K/mm3 Hgb 10.6 L (12.0-15.0) g/dL Hct 33.7 L (37.0-47.0) % Plt Count (150-375) k/mm3 BMP 06/29/24 06/30/24 18:49 06:04 Sodium 140 142 Potassium 4.0 3.7 Chloride 102 107 Carbon Dioxide 26 26 BUN 30 H 24 H Creatinine 1.19 H 0.98 Glucose 123 H 93 Calcium 8.9 8.2 L Cardiac Enzymes 06/29/24 Range/Units 20:43 Troponin I < 0.012 (0.000-0.034) ng/mL Liver Function 06/29/24 Range/Units 18:49 Total Bilirubin 0.7 (0.2-1.3) mg/dL AST 26 (14-36) U/L ALT 16 (6-35) U/L Alkaline Phosphatase 110 (38-126) U/L Albumin 4.0 (3.5-5.1) g/dL Urine 06/29/24 Range/Units 18:49 Urine Color Yellow (Yellow) Urine Appearance Clear (Clear) Urine pH 5.5 (5.0-9.0) Ur Specific Mead 1.015 (1.001-1.035) Urine Protein Negative (Negative) mg/dL Urine Glucose (UA) Negative (Negative) mg/dL
[2024-06-30] MEDS: levETIRAcetam 250 MG TABLET PO (19:58)
[2024-06-30] MEDS: dilTIAZem HCL CD 120 MG CAP.24HR PO (19:58)
[2024-07-01] VITALS (12 sets, daily range): BP systolic 113–148; BP diastolic 43–69; PULSE 53–89; RESP 16–20; TEMP 36.5–37; O2SAT 94–100
[2024-07-01 05:53] LABS: Hematocrit 32.3 % (37.0-47.0); Hemoglobin 10.3 g/dL (12.0-15.0); Mean Corpuscular HGB Conc 31.9 g/dl (32-36); Mean Corpuscular Hemoglobin 31.9 pg (26-34); Mean Platelet Volume 9.4 fl (7.4-10.4); Platelet Count Result 237 k/mm3 (150-375); Red Blood Count 3.23 M/mm3 (4.2-5.4); Red Cell Distribution Width 15.1 % (11.5-14.5); White Blood Count 7.8 K/mm3 (4.5-10.0)
[2024-07-01 06:05] LABS: Alanine Aminotransferase 12 U/L (6-35); Albumin Level 3.2 g/dL (3.5-5.1); Alkaline Phosphatase 88 U/L (38-126); Anion Gap 8 mmol/L (4-12); Aspartate Amino Transferase 23 U/L (14-36); Bilirubin,Total 0.5 mg/dL (0.2-1.3); Blood Urea Nitrogen 19 mg/dL (7-17); Calcium 8.8 mg/dL (8.4-10.2); Carbon Dioxide 27 mmol/L (22-30); Chloride 104 mmol/L (98-107); Estimated CRCL calculation 33 ml/min; Estimated Glomerular Filt Rate 60; Glucose 81 mg/dL (65-110); Potassium 3.6 mmol/L (3.4-5.0); Sodium 139 mmol/L (137-145)
--- NOTE | 2024-07-01 08:02 | PM.IMPN ---
Progress Note: A&P Assessment and Plan (1) Acute upper GI bleed: Code(s): K92.2 - Gastrointestinal hemorrhage, unspecified Status: Acute Assessment and Plan: Patient reportedly vomited ?1500 mL? of coffee-ground emesis mixed with red blood. Hemoccult in the ER was reportedly positive. Patient received 2 L of IV fluids, Zofran and 40 mg of IV Protonix in the ED. Patient has not had any further emesis since presentation to the ER. - H/H 12.1/36.8 on admission, now 10.3/32.3. Possible dilution from fluid boluses, however concerning GI bleed - Head CT: 1. 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 2. Stable moderate nonspecific cerebral white matter disease, which likely represents chronic small vessel ischemic disease. - Abdomen/pelvis CT: 1. Gallbladder distention, which may be secondary to fasting. Correlate with physical exam to exclude acute cholecystitis. 2. Large sliding hiatal hernia. 3. Chronic soft tissue thickening inferior to the bladder with calcifications, which may be stones in a urethral diverticulum. - Pantoprazole BID - Diet: NPO - DVT Px: SCDs, holding patients eliquis for acute GI bleed - Monitor serum electrolytes, CBC, hemoglobin/hematocrit q.8 hours. If hemoglobin drops below 7 transfuse packed red blood cells - Monitor for bloody bowel movements,chest pain,SOB or dizziness/lightheadedness - GI consulted, appreciate recommendations egd to assess if ulcer, gastritis, tesha lesion, etc (2) UTI (urinary tract infection): Code(s): N39.0 - Urinary tract infection, site not specified Status: Acute Assessment and Plan: - UC: klebsiella pneumoniae sensitivities pending - previous micro reviewed 05/21/24: ecoli with ESBL resistance 10/21/23: klebsiella pneumoniae pansensitive 06/06/23: klebsiella pneumoniae pansensitive 09/13/22: ecoli with ESBL resistance - started on rocephin on 07/01 (3) Chronic anticoagulation: Code(s): Z79.01 - [facility] (current) use of anticoagulants Status: Acute Assessment and Plan: Chronic anticoagulation with eliquis 5 mg BID for atrial fibrillation currently on hold for GI bleed. - SCD in place for DVT ppx (4) GERD (gastroesophageal reflux disease): Qualifiers: Esophagitis presence: esophagitis presence not specified Qualified Code(s): K21.9 - Gastro-esophageal reflux disease without esophagitis Code(s): K21.9 - Gastro-esophageal reflux disease without esophagitis Status: Chronic Assessment and Plan: Chronic, continue pantoprazole (5) Paroxysmal atrial fibrillation: Code(s): I48.0 - Paroxysmal atrial fibrillation Status: Chronic Assessment and Plan: EKG: Sinus rhythm HR 79 Echo 05/27/24: LVEF 50-55% with grade I diastolic dysfunction Continue home diltiazem 120 mg daily Holding eliquis 5 mg BID for GI bleed, SCD for DVT ppx (6) Acute kidney injury superimposed on stage 3a chronic kidney disease: Code(s): N17.9 - Acute kidney failure, unspecified; N18.31 - Chronic kidney disease, stage 3a Status: Acute Assessment and Plan: Slight EDITH on admission likely secondary to dehydration BUN/Cr 30/1.19 with GFR 43 on admission, previously WNL Given 2 L of IV fluids in the ED - BUN/Cr 19/0.90 with GFR 60 on am labs - Avoid nephrotoxic medications - Renally dose medications Resolved. (7) Hiatal hernia: Code(s): K44.9 - Diaphragmatic hernia without obstruction or gangrene Status: Acute Assessment and Plan: Chronic, seen previously on chest XR in July 2023 - Abdomen/pelvis CT: Large sliding hiatal hernia - Possible explanation for part of symptoms, however she is to high risk for surgery (discussed previously per GI) (8) Seizure disorder: Code(s): G40.909 - Epilepsy, unspecified, not intractable, without status epilepticus Status: Chronic Assessment and Plan: Chronic, continue current home medications (9) Dementia: Qualifiers: Alzheimer's disease onset: late onset Dementia behavioral or psychological symptom: with other behavioral disturbance Dementia severity: moderate Dementia type: Alzheimer's Qualified Code(s): G30.1 - Alzheimer's disease with late onset; F02.B18 - Dementia in other diseases classified elsewhere, moderate, with other behavioral disturbance Code(s): F03.90 - Unspecified dementia, unspecified severity, without behavioral disturbance, psychotic disturbance, mood disturbance, and anxiety Status: Acute Time Spent With Patient Time with patient: 25 - 35 minutes Subjective Date/time seen: 07/01/24 08:02 Interval history: 83-year-old female with past medical history of dementia, large hiatal hernia, paroxysmal atrial fibrillation on chronic anticoagulation, CHF, chronic kidney disease stage 3, GERD and iron deficiency anemia who [facility] due to suspected GI bleed. patient is pleasant lying comfortably in bed. She has no complaints at this time denying chest pain, shortness a breath, palpitations, nausea /vomiting, and abdominal pain. She is to undergo an EGD today with GI. Review of Systems Review of Systems: All systems reviewed & are unremarkable except as noted in HPI and below Exam Narrative: AF HR 56 RR 18 Spo2 99 BP 137/47 General: female in no acute respiratory distress who is nontoxic appearing, lying semi recumbent in bed. HEENT: Normocephalic. Atraumatic. Extraocular movement intact. Sclera clear and anicteric. No facial asymmetry. Chest: Lungs are clear to auscultation bilaterally. No wheezes or crackles. Mucous production. CV: Heart was regular rate and rhythm. S1-S2. No murmurs, gallops, or rubs. Abd: Abdomen was soft. Tender to LLQ. Nondistended. Positive bowel sounds. Ext: No clubbing, cyanosis, or edema. 2+ DP pulses bilaterally. Neuro: Patient is alert and oriented x1. Speech is clear. Objective Data Vital Signs Vital Signs: Vital Signs - 24 hr 06/30/24 09:05 06/30/24 09:05 06/30/24 12:00 Temperature Pulse Rate 73 74 Respiratory Rate Blood Pressure Pulse Oximetry Oxygen Delivery Room Air Oxygen Flow Rate 06/30/24 16:00 06/30/24 16:38 06/30/24 20:00 Temperature 98.1 F Pulse Rate 69 76 Respiratory Rate 18 Blood Pressure 150/60 H Pulse Oximetry 98 94 Oxygen Delivery Nasal Cannula Oxygen Flow Rate 2 06/30/24 20:00 06/30/24 22:45 07/01/24 00:00 Temperature 97.0 F L Pulse Rate 102 H 79 82 Respiratory Rate 16 Blood Pressure 130/72 Pulse Oximetry 93 Oxygen Delivery Oxygen Flow Rate 07/01/24 04:00 07/01/24 06:00 Temperature 98.6 F Pulse Rate 89 53 L Respiratory Rate 16 Blood Pressure 113/69 Pulse Oximetry 94 Oxygen Delivery Oxygen Flow Rate Intake/Output Intake/Output: Intake & Output 06/28/24 06/29/24 06/30/24 07/01/24 23:59 23:59 23:59 23:59 Intake Total 1000 340 Output Total 25 Balance 975 340 Meds/Results Medications: Active Medications Generic Name Dose Route Start Last Admin Trade Name Freq PRN Reason Stop Dose Admin Acetaminophen 650 mg 06/30/24 04:13 Acetaminophen 325 Mg Tablet PO Q4H PRN Pain (Scale Score 1-3) Dextrose 12.5 gm 06/29/24 21:41 Dextrose 50% 25 Gm/50 Ml Syringe IV PUSH PRN PRN Hypoglycemia Protocol Diltiazem HCl 120 mg 06/30/24 09:00 06/30/24 19:58 Diltiazem Hcl Cd 120 Mg Cap.24hr PO 120 mg DAILY ALEXIS Administration Duloxetine HCl 60 mg 06/30/24 09:00 06/30/24 11:33 Duloxetine Hcl 60 Mg Capsule.Dr PO Not Given DAILY ALEXIS Fluticasone Propionate 2 spray 06/30/24 09:00 06/30/24 09:01 Fluticasone Propionate 0.05% Na Spr 16 Gm Btl (*Bkc) NASAL 2 spray DAILY ALEXIS Administration Glucagon 1 mg 06/29/24 21:41 Glucagon For Inj 1 Mg Vial IM PRN PRN Hypoglycemia Protocol Glucose 15 gm 06/29/24 21:41 Glucose Oral Gel 15 Gm Of Glucse In 37.5 Gm Tube PO PRN PRN Hypoglycemia Protocol Dextrose 1,000 mls @ 100 mls/hr 06/29/24 21:41 Dextrose 5% 1,000 Ml IVPB PRN PRN Hypoglycemia Protocol Lamotrigine 100 mg 06/30/24 09:00 06/30/24 11:33 Lamotrigine 100 Mg Tablet PO Not Given DAILY ALEXIS Levetiracetam 250 mg 06/30/24 09:00 06/30/24 19:58 Levetiracetam 250 Mg Tablet PO 250 mg Q12HR ALEXIS Administration Lorazepam 0.5 mg 06/30/24 09:00 06/30/24 17:59 Lorazepam (*Crx) 0.5 Mg Tablet PO 0.5 mg TID ALEXIS Administration Mirabegron 25 mg 06/30/24 09:00 06/30/24 11:34 Mirabegron 25 Mg Er Tablet PO Not Given DAILY ALEXIS Ondansetron HCl 4 mg 06/29/24 21:41 Ondansetron Inj 4 Mg/2 Ml Vial IV PUSH Q4H PRN Nausea Pantoprazole Sodium 40 mg 06/30/24 09:00 06/30/24 17:59 Pantoprazole Sodium Iv 40 Mg Vial IV PUSH 40 mg BID ALEXIS Administration Radiology Results: ITS Impressions Head CT 06/29/24 20:12 IMPRESSION: 1. 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 2. Stable moderate nonspecific cerebral white matter disease, which likely represents chronic small vessel ischemic disease. Abdomen/Pelvis CT 06/29/24 20:17 IMPRESSION: 1. Gallbladder distention, which may be secondary to fasting. Correlate with physical exam to exclude acute cholecystitis. 2. Large sliding hiatal hernia. 3. Chronic soft tissue thickening inferior to the bladder with calcifications, which may be stones in a urethral diverticulum. Labs Labs: Laboratory Results - last 24 hr 06/30/24 07/01/24 13:26 05:38 WBC 7.8 RBC 3.23 L Hgb 10.6 L 10.3 L Hct 33.7 L 32.3 L MCV 100.0 MCH 31.9 MCHC 31.9 L RDW 15.1 H Plt Count 237 MPV 9.4 Sodium 139 Potassium 3.6 Chloride 104 Carbon Dioxide 27 Anion Gap 8 BUN 19 H Creatinine 0.90 Estim Creat Clear Calc 33 Estimated GFR 60 Glucose 81 Calcium 8.8 Total Bilirubin 0.5 AST 23 ALT 12 Alkaline Phosphatase 88 Total Protein 6.0 L Albumin 3.2 L Quality VTE Prophylaxis VTE prophylaxis: mechanical ordered (SCDs)
--- NOTE | 2024-07-01 09:20 | PC.NURSE ---
Patient off of unit to GI lab
[2024-07-01] MEDS: LACTATED RINGERS 1,000 ML 150 ML IV CONT (10:01)
--- NOTE | 2024-07-01 10:07 | P.PNAN_ITS ---
Anes - Initial Pre Proc Eval Procedure: Operation Date: 07/01/24 15:30 Proposed Procedures p Esophagogastroduodenoscopy - Jose Roberto Coker MD Date/Time: 07/01/24 10:07 Surgeon: Magaly Bermudez DO Pre Op Diagnosis: UGIB Patient Data Age: 83 Gender: F Height: 1.6 m Weight: 65.7 kg Last Vital Signs Temp 97.9 F 07/01/24 09:58 Pulse 61 07/01/24 09:58 Resp 20 07/01/24 09:58 BP 122/49 L 07/01/24 09:58 Pulse Ox 99 07/01/24 09:58 O2 Del Method Room Air 07/01/24 09:58 O2 Flow Rate 2 06/30/24 20:00 Allergies Allergy/AdvReac Type Severity Reaction Status Date / Time sertraline Allergy Severe Unknown Verified 07/01/24 09:52 hydromorphone Allergy Intermediate Unknown Verified 07/01/24 09:52 Home Medications ?Medication ?Instructions ?Recorded ?Confirmed ?Type cholecalciferol (vitamin D3) 1,250 50,000 unit PO WEEKLY 03/20/19 06/29/24 History mcg (50,000 unit) tablet cyanocobalamin (vitamin B-12) 1,000 mcg PO DAILY 03/20/19 06/29/24 History 1,000 mcg capsule donepezil 10 mg tablet 10 mg PO HS 03/20/19 06/29/24 History polyethylene glycol 3350 17 17 g PO DAILY PRN Constipation 03/20/19 06/29/24 History gram/dose oral powder (Miralax) duloxetine 60 mg capsule,delayed 60 mg PO DAILY 07/16/21 06/29/24 History release famotidine 20 mg disintegrating 20 mg PO BID 07/16/21 06/29/24 History tablet lamotrigine 100 mg tablet 100 mg PO DAILY 07/16/21 06/29/24 History levetiracetam 250 mg tablet 250 mg PO BID 07/16/21 06/29/24 History (Keppra) melatonin 3 mg tablet 3 mg PO HS 07/16/21 06/29/24 History cranberry fruit 450 mg tablet 450 mg PO DAILY 04/05/22 06/29/24 History (cranberry) fluticasone propionate 50 2 spray intranasal DAILY 04/05/22 06/29/24 History mcg/actuation nasal spray,suspension (Allergy Relief (fluticasone)) mirabegron 25 mg tablet,extended 25 mg PO DAILY 04/05/22 06/29/24 History release 24 hr (Myrbetriq) Marisol-Tussin 5 ml PO Q6H PRN Congestion 09/13/22 06/29/24 History acetaminophen 325 mg tablet 650 mg PO Q4H PRN Pain (Scale 09/13/22 06/29/24 History Score 1-3) lorazepam 0.5 mg tablet 0.5 mg PO TID 09/13/22 06/29/24 History magnesium oxide 1 tablet PO DAILY 09/13/22 06/29/24 History potassium chloride 20 mEq 20 meq PO BID 09/13/22 06/29/24 History tablet,extended release(part/cryst) (Klor-Con M) ferrous sulfate 325 mg (65 mg 325 mg PO DAILY 30 days #30 tabs 09/17/22 06/29/24 Rx iron) tablet,delayed release sennosides 8.6 mg-docusate sodium 1 tab-cap PO DAILY 06/06/23 06/29/24 History 50 mg tablet (Senna Plus) apixaban 5 mg tablet (Eliquis) 5 mg PO Q12HR #60 tabs 06/13/23 06/29/24 Rx diltiazem HCl 120 mg 120 mg PO DAILY #30 caps 06/13/23 06/29/24 Rx capsule,extended release 24 hr furosemide 40 mg tablet 40 mg PO DAILY #30 tabs 06/13/23 06/29/24 Rx omeprazole 40 mg capsule,delayed 40 mg PO BID #60 caps 04/17/24 06/29/24 Rx release cetirizine 10 mg tablet (24Hour 10 mg PO DAILY 05/21/24 06/29/24 History Allergy) clobetasol 0.05 % topical cream 1 applic topical DAILY 05/21/24 06/29/24 History pantoprazole 20 mg tablet,delayed 20 mg PO BID 06/29/24 06/29/24 History release Laboratory Tests 06/30/24 07/01/24 13:26 05:38 WBC 7.8 K/mm3 (4.5-10.0) RBC 3.23 L M/mm3 (4.2-5.4) Hgb 10.6 L g/dL 10.3 L g/dL (12.0-15.0) (12.0-15.0) Hct 33.7 L % 32.3 L % (37.0-47.0) (37.0-47.0) MCV 100.0 fl (80-100) MCH 31.9 pg (26-34) MCHC 31.9 L g/dl (32-36) RDW 15.1 H % (11.5-14.5) Plt Count 237 k/mm3 (150-375) MPV 9.4 fl (7.4-10.4) Sodium 139 mmol/L (137-145) Potassium 3.6 mmol/L (3.4-5.0) Chloride 104 mmol/L (98-107) Carbon Dioxide 27 mmol/L (22-30) Anion Gap 8 mmol/L (4-12) BUN 19 H mg/dL (7-17) Creatinine 0.90 mg/dL (0.7-1.0) Estim Creat Clear Calc 33 ml/min Estimated GFR 60 (59 - ) Glucose 81 mg/dL (65-110) Calcium 8.8 mg/dL (8.4-10.2) Total Bilirubin 0.5 mg/dL (0.2-1.3) AST 23 U/L (14-36) ALT 12 U/L (6-35) Alkaline Phosphatase 88 U/L (38-126) Total Protein 6.0 L g/dL (6.3-8.2) Albumin 3.2 L g/dL (3.5-5.1) Patient hx anesthesia problems: none Family hx anesthesia problems: none Results Review: All pre-operative results and documents have been reviewed as part of the pre- operative evaluation. 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, 2019 Thoracic compression fracture T10 Essential hypertension Osteoporosis Frequent urinary tract infections history of ESBL E coli infection March 2018 Seizure disorder Schizoaffective disorder Hyperlipidemia Depression Dementia Paroxysmal atrial fibrillation Surgical History Surgical History History of arthroscopy of left shoulder History of total left hip arthroplasty (2015) History of bladder suspension procedure History of hysterectomy Family History Family History Sibling Dementia Cerebrovascular accident Sibling Acute myocardial infarction Mother Cirrhosis Father Emphysema of lung Social History Social History Social History: Surrogate medical decision maker: Cameron Naranjo. Code status: Do not resuscitate. Smoking packs per day: 1 Smoking cigarettes per day: 20.0 Years smoked: 10 Smoking pack-years: 10.00 Smoking status: Unknown if ever smoked Second hand tobacco smoke exposure: No Alcohol intake: unknown Substance use: unknown Substance use type: does not use Do You Feel Safe in your Home?: Yes Lack of Transportation: No Lack of Food: Never True Current Housing: I Have Housing Concerned About Future Housing: No Difficulty Paying Gas/Electric Bills: No Difficulty Paying for Meds: No Currently Unemployed: No Education: High School Diploma/GED Difficulty w/ Childcare or Family Care: No Additional living arrangements comments: . Resident at [facility]. 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: No Agree to blood products: Yes Anes - Eval Final PreProcedure Day of Procedure 07/01/24 10:07 Patient weight: normal Heart: irregular rhythm Lungs: clear to auscultation and normal air movement Airway: Mallampati scale Neurological: alert and oriented and confused Last oral intake: >/= 8 hours ASA classification: IV Emergent: no Anesthesia type and monitoring: general GIVS and standard monitoring Results Review: All pre-operative results and documents have been reviewed as part of the pre- operative evaluation. GI and hospitalist notes reviewed. Labs and ECHO reviewed w [employer] C[employer]TER. Informed Consent: The patient's anesthetic plan and its attendant risks and benefits were discussed with the patient/family/POA. Questions were solicited and answers provided to the satisfaction of the patient/family/POA.
[2024-07-01] MEDS: FLUTICASONE PROPIONATE 0.05% NA SPR 16 GM BTL (*BKC) 2 SPRAY NASAL (14:23)
[2024-07-01] MEDS: DULoxetine HCL 60 MG CAPSULE.DR PO (14:24)
[2024-07-01] MEDS: lamoTRIgine 100 MG TABLET PO (14:24)
[2024-07-01] MEDS: MIRABEGRON 25 MG ER TABLET PO (14:24)
[2024-07-01] MEDS: LORazepam (*CRX) 0.5 MG TABLET PO ×3 (14:24→18:21)
[2024-07-01] MEDS: levETIRAcetam 250 MG TABLET PO ×2 (14:24→20:42)
[2024-07-02] VITALS: PULSE 65
[2024-07-02 04:00] VITALS: PULSE 65
[2024-07-02 06:00] VITALS: BP 131/54; PULSE 71; RESP 20; TEMP 36.5; O2SAT 98
[2024-07-02 06:03] LABS: Hematocrit 29.7 % (37.0-47.0); Hemoglobin 9.7 g/dL (12.0-15.0); Mean Corpuscular HGB Conc 32.7 g/dl (32-36); Mean Corpuscular Hemoglobin 31.6 pg (26-34); Mean Corpuscular Volume 96.7 fl (80-100); Mean Platelet Volume 9.3 fl (7.4-10.4); Platelet Count Result 218 k/mm3 (150-375); Red Blood Count 3.07 M/mm3 (4.2-5.4); Red Cell Distribution Width 14.6 % (11.5-14.5); White Blood Count 7.9 K/mm3 (4.5-10.0)
[2024-07-02 06:14] LABS: Alanine Aminotransferase 12 U/L (6-35); Albumin Level 3.1 g/dL (3.5-5.1); Alkaline Phosphatase 85 U/L (38-126); Anion Gap 7 mmol/L (4-12); Aspartate Amino Transferase 23 U/L (14-36); Bilirubin,Total 0.4 mg/dL (0.2-1.3); Blood Urea Nitrogen 12 mg/dL (7-17); Calcium 8.5 mg/dL (8.4-10.2); Carbon Dioxide 26 mmol/L (22-30); Chloride 103 mmol/L (98-107); Estimated CRCL calculation 37 ml/min; Estimated Glomerular Filt Rate > 60; Glucose 89 mg/dL (65-110); Potassium 3.4 mmol/L (3.4-5.0); Sodium 136 mmol/L (137-145)
[2024-07-02 09:15] VITALS: PULSE 73
[2024-07-02] MEDS: LORazepam (*CRX) 0.5 MG TABLET PO ×2 (09:15→12:33)
[2024-07-02] MEDS: dilTIAZem HCL CD 120 MG CAP.24HR PO (09:15)
[2024-07-02] MEDS: levETIRAcetam 250 MG TABLET PO (09:15)
[2024-07-02] MEDS: MIRABEGRON 25 MG ER TABLET PO (09:15)
[2024-07-02] MEDS: PANTOPRAZOLE 40 MG TABLET PO (09:15)
[2024-07-02] MEDS: lamoTRIgine 100 MG TABLET PO (09:15)
[2024-07-02] MEDS: DULoxetine HCL 60 MG CAPSULE.DR PO (09:15)
[2024-07-02] MEDS: FLUTICASONE PROPIONATE 0.05% NA SPR 16 GM BTL (*BKC) 2 SPRAY NASAL (09:16)
--- NOTE | 2024-07-02 13:21 | P.DS_ITS ---
DS: Admitting Diagnosis Discharge Date 07/02/2024 Admitting Diagnosis acute upper GI bleed urinary tract infection chronic anticoagulation GERD paroxysmal AFib acute kidney injury superimposed on CKD hiatal hernia seizure dementia DS: Discharge Diagnosis Discharge Diagnosis (1) Acute upper GI bleed: Code(s): K92.2 - Gastrointestinal hemorrhage, unspecified Status: Acute (2) UTI (urinary tract infection): Code(s): N39.0 - Urinary tract infection, site not specified Status: Acute (3) Chronic anticoagulation: Code(s): Z79.01 - custodial (current) use of anticoagulants Status: Acute (4) GERD (gastroesophageal reflux disease): Qualifiers: Esophagitis presence: esophagitis presence not specified Qualified Code(s): K21.9 - Gastro-esophageal reflux disease without esophagitis Code(s): K21.9 - Gastro-esophageal reflux disease without esophagitis Status: Chronic (5) Paroxysmal atrial fibrillation: Code(s): I48.0 - Paroxysmal atrial fibrillation Status: Chronic (6) Acute kidney injury superimposed on stage 3a chronic kidney disease: Code(s): N17.9 - Acute kidney failure, unspecified; N18.31 - Chronic kidney disease, stage 3a Status: Acute (7) Hiatal hernia: Code(s): K44.9 - Diaphragmatic hernia without obstruction or gangrene Status: Acute (8) Seizure disorder: Code(s): G40.909 - Epilepsy, unspecified, not intractable, without status epilepticus Status: Chronic (9) Dementia: Qualifiers: Dementia type: Alzheimer's Alzheimer's disease onset: late onset Dementia severity: moderate Dementia behavioral or psychological symptom: with other behavioral disturbance Qualified Code(s): G30.1 - Alzheimer's disease with late onset; F02.B18 - Dementia in other diseases classified elsewhere, moderate, with other behavioral disturbance Code(s): F03.90 - Unspecified dementia, unspecified severity, without behavioral disturbance, psychotic disturbance, mood disturbance, and anxiety Status: Acute DS: Summary Hospital Course Reason for hospitalization: acute upper GI bleed urinary tract infection chronic anticoagulation GERD paroxysmal AFib acute kidney injury superimposed on CKD hiatal hernia seizure dementia Hospital Course: 83-year-old female with past medical history of dementia, large hiatal hernia, paroxysmal atrial fibrillation on chronic anticoagulation, CHF, chronic kidney disease stage 3, GERD and iron deficiency anemia who presented to the ER from longterm facility via EMS due to suspected GI bleed. Patient reportedly vomited ?1500 mL? of coffee-ground emesis mixed with red blood. Hemoccult in the ER was reportedly positive. Patient received 2 L of IV fluids, Zofran and 40 mg of IV Protonix in the ED. Patient has not had any further emesis since presentation to the ER. H/H remained stable. Head CT showed old infarcts involving the cerebellum and left frontal and parietal lobes and stable moderate nonspecific cerebral white matter disease. Abdomen/pelvis CT showed gallbladder distention, which may be secondary to fasting, large sliding hiatal hernia and chronic soft tissue thickening inferior to the bladder with calcifications. GI consulted and EGD performed. EGD showed the known hiatal hernia and gastritis, no active bleed. Eliquis resumed. Patient to continue daily PPI and follow up with GI in the outpatient setting. During admission patient was endorsing pain with urination and increased frequency. Urine culture was obtained and grew Klebsiella pneumonia. Patient discharged on antibiotics to complete course. On admission patient had a slight EDITH which resolved with fluids. At time of discharge patient has no complaints denying chest pain, shortness a breath, palpitations, nausea / vomiting, abdominal pain. patient discharged [facility] in a stable condition. She is to follow up with her primary care provider in 1 week and GI as scheduled. Status at Discharge Functional status at discharge: uses cane/walker Time Spent with Patient Time attestation: Total time spent providing and/or coordinating discharge services: Time spent: Greater than 30 minutes Exam Narrative: AF HR 71 RR 20 Spo2 98 BP 131/54 General: female in no acute respiratory distress who is nontoxic appearing, lying semi recumbent in bed. HEENT: Normocephalic. Atraumatic. Extraocular movement intact. Sclera clear and anicteric. No facial asymmetry. Chest: Lungs are clear to auscultation bilaterally. No wheezes or crackles. CV: Heart was regular rate and rhythm. S1-S2. No murmurs, gallops, or rubs. Abd: Abdomen was soft. Nontender. Nondistended. Positive bowel sounds. Ext: No clubbing, cyanosis, or edema. 2+ DP pulses bilaterally. Neuro: Patient is alert and oriented x3 (person, place, month). Speech is clear. DS: Data Data Completed and Pending Completed studies during hospitalization: abdomen/pelvis CT head ct Pending studies at discharge: Pending at discharge 07/01/24 10:13 Surgical [PTH] Routine Labs on day of discharge: Labs from last 24 hours 07/02/24 05:50 WBC 7.9 RBC 3.07 L Hgb 9.7 L Hct 29.7 L MCV 96.7 MCH 31.6 MCHC 32.7 RDW 14.6 H Plt Count 218 MPV 9.3 Sodium 136 L Potassium 3.4 Chloride 103 Carbon Dioxide 26 Anion Gap 7 BUN 12 D Creatinine 0.80 Estim Creat Clear Calc 37 Estimated GFR > 60 Glucose 89 Calcium 8.5 Total Bilirubin 0.4 AST 23 ALT 12 Alkaline Phosphatase 85 Total Protein 6.0 L Albumin 3.1 L Discharge Plan Discharge Attending physician on discharge: Wyatt Laguna Consulting providers: Jeni Loja; Jose Roberto Coker Discharging Clinician: Jeni Loja Anticipated Discharge Date/Time: 07/02/24 13:20 Patient Disposition: NH Longterm/Asst Living Activity: as tolerated Diet: as tolerated and heart healthy Discharge Instructions: Discharge disposition: Patient admitted to the hospital for bloody emesis Evaluated by GI and a EGD was performed, no signs of active bleeding Blood levels remain stable Continue pantoprazole Resume eliquis as prescribed Follow up with GI in the outpatient setting Diagnosed with a urinary tract infection Take all medications as prescribed even if feeling better Augmentin twice a day, course to be completed on Attached is information on this medication Eat well balanced meals and stay hydrated Keep active to remain strong Avoid use of diapers or pads Good sherie Care every 2 hours Trend urine output Monitor blood pressures Take caution while standing, rising, or moving Change positions slowly taking a break between each position change If you standing feel dizzy sit back down and take a break Encouraged to continue with yearly vaccinations Return to the emergency department if he developed sudden shortness of breath, chest pain, nausea, vomiting, upset stomach or intractable diarrhea Return to the emergency department if you develop fever greater than 101.5 Follow-up with the primary care physician within 1-2 weeks Thank you for [facility] for your healthcare needs Patient Instructions: Antibiotic Form, Apixaban (By mouth), Heart Failure (DC), Hiatal Hernia (DC), Safe Use of Anticoagulants (DC), Urinary Tract Infection in Older Adults (DC) Patient Language: Lebanese Stand Alone Forms: General Discharge Information Follow-up/Referrals: Jose Roberto Coker MD [Physician] - Call for Appointment UNKNOWN,DOCTOR [Primary Care Provider] - 1 Week Discharge Medications: New pantoprazole 40 mg Tablet,Delayed Release (Dr/Ec) 40 mg PO QAM Qty: 30 0RF amoxicillin-pot clavulanate 875-125 mg tablet 1 tablet PO Q12H Qty: 10 0RF Continued donepezil 10 mg Tablet 10 mg PO HS cholecalciferol (vitamin D3) 50,000 unit Tablet 50,000 unit PO WEEKLY Patient Comments: MONDAY Rx Instructions: Tuesdays cyanocobalamin (vitamin B-12) 1,000 mcg Capsule 1,000 mcg PO DAILY polyethylene glycol 3350 [Miralax] 17 gram/dose Powder 17 g PO DAILY PRN (Reason: Constipation) Rx Instructions: As needed if no BM in 2 days melatonin 3 mg Tablet 3 mg PO HS levetiracetam [Keppra] 250 mg Tablet 250 mg PO BID duloxetine 60 mg Capsule,Delayed Release(Dr/Ec) 60 mg PO DAILY lamotrigine 100 mg tablet 100 mg PO DAILY fluticasone propionate [Allergy Relief (fluticasone)] 50 mcg/actuation Sp ray,Suspension 2 spray INTRANASAL DAILY Rx Instructions: administer into each nostril cranberry 450 mg Tablet 450 mg PO DAILY Rx Instructions: administer with a meal mirabegron [Myrbetriq] 25 mg Tablet Extended Release 24 Hr 25 mg PO DAILY acetaminophen 325 mg Tablet 650 mg PO Q4H PRN (Reason: Pain (Scale Score 1-3)) lorazepam 0.5 mg tablet 0.5 mg PO TID Marisol-Tussin 100 mg/5 mL liquid 5 ml PO Q6H PRN (Reason: Congestion ) potassium chloride [Klor-Con M20] 20 mEq tablet,ER particles/crystals 20 meq PO BID magnesium oxide 400 mg tablet 1 tablet PO DAILY ferrous sulfate 325 mg (65 mg iron) Tablet,Delayed Release (Dr/Ec) 325 mg PO DAILY 30 Days Qty: 30 0RF sennosides-docusate sodium [Senna Plus] 8.6-50 mg Tablet 1 tab-cap PO DAILY Eliquis 5 mg Tablet 5 mg PO Q12HR Qty: 60 0RF diltiazem HCl 120 mg capsule,extended release 24hr 120 mg PO DAILY Qty: 30 0RF furosemide 40 mg Tablet 40 mg PO DAILY Qty: 30 0RF cetirizine [24Hour Allergy] 10 mg tablet 10 mg PO DAILY clobetasol 0.05 % cream 1 applic topical DAILY Rx Instructions: apply to effected area on face and nose Discontinued omeprazole 40 mg capsule,delayed release(DR/EC) 40 mg PO BID Qty: 60 11RF Rx Instructions: 30 min prior to breakfast and dinner, take on empty stomach famotidine 20 mg Tablet,Disintegrating 20 mg PO BID pantoprazole 20 mg tablet,delayed release (DR/EC) 20 mg PO BID Date of admission: 06/30/24 07:58 Primary Care Provider: UNKNOWN,DOCTOR Admitting Provider: Magaly Bermudez Attending physician on admission: Magaly Bermudez Condition: Stable Hospitalist MIPS Heart Failure (Exclusion) Patient has history of Heart Transplant or Left Ventricular Assistive Device?: No IF YES, STOP HERE Heart Failure (Qualifier) Patient has current or prior documentation of LVEF less than or equal to 40%, or mod/servere depressed LVSF?: No IF NO, STOP HERE
--- NOTE | 2024-07-02 13:51 | PCPTNOTE ---
received PT orders, talked with CATRINA Hayward; pt is returning to shelter [facility] care this afternoon. PT eval not performed.
== END 2024-07-02 15:25 | DRG 378 ==
LOC: ANHED 19:01 → ANH3MED 22:16
PROVIDERS: Emergency Medicine; Internal Medicine Gastroenterology; Admitting Provider Internal Medicine; Emergency Provider Physician Assistant; Visit Provider Student in an Organized Health Care Education/Training Program
PROC: 0DJ08ZZ Inspection of Upper Intestinal Tract, Via Natural or Artificial Opening Endoscopic (ICD-10-PCS; principal; 2024-07-01 15:30)
DX: K92.2 Gastrointestinal hemorrhage, unspecified (principal); F02.B18 Dementia in other diseases classified elsewhere, moderate, with other behavioral disturbance; I13.0 Hypertensive heart and chronic kidney disease with heart failure and stage 1 through stage 4 chronic kidney disease, or unspecified chronic kidney disease; N17.9 Acute kidney failure, unspecified; N39.0 Urinary tract infection, site not specified; N18.31 Chronic kidney disease, stage 3a; I50.9 Heart failure, unspecified; I48.0 Paroxysmal atrial fibrillation; I35.0 Nonrheumatic aortic (valve) stenosis; K29.70 Gastritis, unspecified, without bleeding; K44.9 Diaphragmatic hernia without obstruction or gangrene; K21.9 Gastro-esophageal reflux disease without esophagitis; E78.5 Hyperlipidemia, unspecified; E55.9 Vitamin D deficiency, unspecified; B96.1 Klebsiella pneumoniae [K. pneumoniae] as the cause of diseases classified elsewhere; M81.0 Age-related osteoporosis without current pathological fracture; G30.1 Alzheimer's disease with late onset; G40.909 Epilepsy, unspecified, not intractable, without status epilepticus; F25.9 Schizoaffective disorder, unspecified; F41.9 Anxiety disorder, unspecified; F32.A Depression, unspecified; Z96.642 Presence of left artificial hip joint; Z20.822 Contact with and (suspected) exposure to COVID-19; Z79.01 Long term (current) use of anticoagulants; Z87.891 Personal history of nicotine dependence
CPT/HCPCS: 36415; 70450; 74177; 80048; 80053; 81001; 83880; 84484; 85014; 85018; 85025; 85027; 85610; 85730; 86850; 86900; 86901; 87086; 87186; 87637; 88305; 93005; 96361; 96374; 96375; 99285; A9270; G0378; J0696; J2405; J2470; J2704; J7030; J7120; Q9967

== ENCOUNTER 2024-08-31 11:43 | Inpatient (IN) | payer MEDICARE, MEDICAID, SELFPAY ==
[2024-08-31] VITALS (16 sets, daily range): BP systolic 114–179; BP diastolic 50–76; PULSE 72–98; RESP 16–20; TEMP 36.6–37.3; O2SAT 98–100; BMI 24.9
--- NOTE | ~2024-08-31 | XR_ITS ---
EXAMINATION: XR chest 1V portable DATE: 08/31/2024 12:00 INDICATION: Chest pain TECHNIQUE: frontal view of the chest was obtained. COMPARISON: Chest radiograph dated 05/21/[address] dated 05/26/2024 FINDINGS: Mild increased interstitial pattern at the bilateral lower lung zones suspicious for mild pulmonary e marv with differential including atelectasis or pneumonia. No pleural effusion or pneumothorax. Heart size is normal. L1 burst fracture with vertebroplasty. IMPRESSION: 1. Increased interstitial pattern in the bilateral lower lung zones most likely mild pulmonary edema with differential including atelectasis or pneumonia. Reviewed, dictated and finalized at location A.
--- NOTE | ~2024-08-31 | CT_ITS ---
EXAMINATION: CT brain wo con DATE: 08/31/2024 12:22 INDICATION: Fall. Weakness. TECHNIQUE: Computed tomography (CT) of the head was performed without intravenous contrast. Sagittal and coronal reconstructions were performed. The mA was adjusted according to patient size. Iterative reconstruction technique was employed. The dose-length product was 709.49 mGy-cm. COMPARISON: head CT dated 06/29/24 and brain MR dated 05/26/2024 FINDINGS: No fracture. Small regions of encephalomalacia in the left frontal lobe and the left parietal lobe as well as the bilateral cerebellar hemispheres consistent with sequela of old infarcts. No acute intra cranial hemorrhage, acute infarction or abnormal extra axial fluid collection. There is moderate scat tered white matter hypoattenuation consistent with chronic small vessel ischemic disease. Symmetric p rominence of the sulci and ventricles consistent with mild to moderate age-appropriate diffuse cerebr al volume loss. No mass/mass effect. The orbits, paranasal sinuses and mastoid air cells are normal. IMPRESSION: 1. No fracture or acute intracranial process. 2. 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 3. Age-related changes including mild to moderate diffuse volume loss and moderate scattered white ma tter hypoattenuation consistent with sequela of chronic small vessel ischemic disease. Reviewed, dictated and finalized at location A. IMPRESSION: 1. No fracture or acute intracranial process. 2. 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 3. Age-related changes including mild to moderate diffuse volume loss and moder ate scattered white matter hypoattenuation consistent with sequela of chronic s mall vessel ischemic disease.
--- NOTE | 2024-08-31 11:47 | ECG_ITS ---
Test Date: 2024-08-31 11:51:06 Measurements Intervals [place] Rate: 87 P: -4 MD: 149 QRS: 5 QRSD: 127 T: 71 QT: 384 QTc: 462 Interpretive Statements SINUS RHYTHM LEFT BUNDLE BRANCH BLOCK BASELINE ARTIFACT- I, II, III, AVR, AVL, AVF, V4-V6 ABNORMAL ECG Compared to ECG 06/29/2024 20:30:36 No significant changes Electronically Signed On 08-31-2024 13:05:37 CDT by Vladimir Sosa D.O.
--- OUTSIDE RECORDS SUMMARY | 2024-08-31 11:54 | XMS_ITS | Clinical Summary ---
Author Organization [facility] Address [address] [place] [address] Care Team Providers Care Finish Mender Name Role Phone DaquanLast presley DO Unavailable [phone] Pavan Martinez MD Primary Care Provider Светлана vailable Allergies Active Allergy Reactions Criticality Noted Date [...] cerebral arteries Hyperlipidemia 06/17/2015 Paroxysmal atrial fibrillation 06/17/2015 Epilepsy 06/17/2015 Aphasia as late effect of [...] / Convulsions Closed fracture of lumbar vertebra 06/04/2013 Overview (08/11/2016): Fx lumbar vertebra-closed Major depressive disorder 08/13/2012 Overview (08/11/2016): Major depression Benign essential hypertension 07/11/2012 Overview (08/12/2016): Benign essential HTN 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 Overview (08/10/2016): Adrenal nodule Generalized weakness Pleural effusion on right Microcytic anemia Chronic systolic congestive heart failure Immunizations Immunization Administration Dates Next Due Influenza, [...] Shoulder Surgery - (Added by TW Conv) GA TOTAL ABDOMINAL HYSTERECT W/WO RMVL TUBE OVARY Hysterectomy - (Added by TW Conv) BACK SURGERY Lower Back Surgery - (Added by TW Conv) GA ARTHRP ACETBLR/PROX FEM P ROSTC AGRFT/ALGRFT Left Total Hip Replacement - Mar 2015 (Added by Conv) Medical History Medical History Date Comments Hx Other Medical CVA (Stroke) Hyperlipidemia Hyperlipidemia Atrial fibrillation (HCC) Atrial fibrillation Hx Other Medical Gastroesophagea [...] Tension headache Headache, tensi on Seizure disorder (HCC) Seizure d isorder Cerebral infarction (HCC) Cardio embolic stroke - [...] on file Legal 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 Gender Identity Not on file Sexual Orientation [...] 016, 06/24/2014, 06/24/2014, Additional history exists Insurance [employer] [facility] MEDICARE ADVANTAGE [facility] MEDICARE [place]AGE [place] [address] [employer] MEDICARE ADVANTAGE Advance Directives For more information, please contact: [phone] Documents on File Type Date Recorded Patient Police Sergeant Expl anation ADVANCE DIRECTIVE 08/04/2017 12:00 AM DNR * Full Code (Latest Code Status on File) Date Activated Date Inactivated Comments 09/19/2018 7:50 PM 09/27/2018 11:22 PM Care Teams Finish Mender Relationship Specialty Start Date End Date Pavan Martinez MD [address] [place] [address] [address]ER [address] [place] [id number] PCP - General Emergency Medicine 06/27/19 Last De Jesus DO [address] [place] [address] [address] MAYER [address] [place] [id number] Cardiovascular Disease 09/27/18
--- OUTSIDE RECORDS SUMMARY | 2024-08-31 11:54 | XMS_ITS | Referral Summary ---
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 Gender Identity Not on file Sexual Orientation [...] Plan of Treatment Not on file Insurance [facility] [place] [id number] [facility] MEDICARE ADVANTAGE [facility] [place] [id number] [facility] MEDICARE ADVANTAGE Advance Directives For more information, please contact: [phone] Documents on File Type Date Recorded Patient Conference Services Director Expl anation ADVANCE DIRECTIVE 08/04/2017 12:00 AM DNR * Full Code (Latest Code Status on File) Date Activated Date Inactivated Comments 09/19/2018 7:50 PM 09/27/2018 11:22 PM Care Teams Pole Cutter Relationship Specialty Start Date End Date Pavan Martinez MD [address] [facility] [address]ER [address] [place] [id number] PCP - General Emergency Medicine 06/27/19 Last De Jesus DO [address] [facility] [address] [place] [id number] Cardiovascular Disease 09/27/18
--- OUTSIDE RECORDS SUMMARY | 2024-08-31 11:54 | XMS_ITS | CONTINUITY OF CARE DOCUMENT ---
Author Name juliennecarlos elvin Address Unknown Organization [facility] Office Address [address] [place] [address] Phone [phone] Care Team Providers Care Labor Standards Director Name Role Phone Guilherme Ruvalcaba MD Unavailable PATRICE SANDERS MD Unavailable [phone] PATRICE SANDERS MD Unavailable PROBLEMS Condition Status Date Provider Notes Palpitations active Rolando Pelayo INSURANCE PROVIDERS Payer name Policy type / Coverage type [place] red green party ID [facility] [id number] [place] MED[place] Medicare [id number] HISTORY OF PROCEDURES Procedure Date Procedure Name Provider Procedure Notes S tatus Event Monitor Rolando Pelayo completed
--- OUTSIDE RECORDS SUMMARY | 2024-08-31 11:54 | XMS_ITS | Clinical Summary ---
Author Organization [facility] Address [address] [place] [address] Care Team Providers Care Keg Varnisher Name Role Phone Trudy Abernathy MD Primary Care Provider [phone] Source Comments [facility],non-[facility] Affiliates and Associated Physician Practices is amultiple site organization consisting of ambulatory clinics and hospital sitesin [place], [place], [place] and [place]. This disclosure is being madepursuant to the Care Everywhere program and may not contain all information available regarding this patient. 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 Gender Identity Not on file Sexual Orientation Not on file Plan of Treatment Health Maintenance Due Date Last Done Comments BONE DENSITY TESTING 1938 MEDICARE AWV 12 MONTHS 1938 DTAP/TDAP/TD VACCINES (1 - Tdap) 1957 PNEUMOCOCCAL VACCINE 50+ (1 of 1 - PCV) 1988 ZOSTER VACCINE (1 of 2) 1988 Respiratory Syncytial Virus (RSV) Vaccine Pt: or over 60 yrs (1 - 1-dose 75+ series) 2013 COVID-19 VACCINE ( - 2023-2 5 season) 2024 DEPRESSION SCREENING 05/08/2024 INFLUENZA VACCINE (Season Ended) 2025 02/16/2016, 03/05/2015, 02/22/2011 HEPATITIS B VACCINE Aged Out No longe r eligible based on patient's age to complete this topic HIB VACCINE Aged Out No longer eligi ble based on patient's age to complete this topic HPV VACCINE Aged Out No longer eligi ble based on patient's age to complete this topic MENINGOCOCCAL (Group B) VACCINE SHARED DECISION-MAKING Aged Out No longer eligible based on patient's age to complete this topic MENINGOCOCCAL GROUPS A/C/Y/W VACCINE Aged Out No longer eligible b ased on patient's age to complete this topic Insurance MEDICARE REPLACED BY [facility] MEDICAID [employer] [place] Care Teams Keg Varnisher Relationship Specialty Start Date End Date Trudy Abernathy MD [address] [place] [address] PCP - General 11/30/10
--- OUTSIDE RECORDS SUMMARY | 2024-08-31 11:54 | XMS_ITS | Encounter Summary ---
Author Organization [facility] Address [address] [facility] [address] [place] [id number] Care Team Providers Care Special Educator Name Role Phone Cindy Abernathy MD Primary Care Provider [phone] Cindy Abernathy MD Primary Care Provider [phone] Mary Bonilla RN Unavailable [phone] Marlin Rebolledo RN Unavailable [phone] Charanjit Ace MD Primary Care Provider [phone] Last De Jesus DO Unavailable [phone] Pavan Martinez MD Primary Care Provider Светлана vailable Encounter Details Date Type Department Care Team (Late st Contact Info) Description 07/08/2016 Orders Only [facility] Provider, MD [place] [address] [place] [id number] Social History Tobacco Use Types Packs/Day Years Used Date Smoking Tobacco: Former Cigarettes Q uit: 05/08/1964 Alcohol Use Standard Drinks/Week Comments No 0 (1 standard drink = 0.6 oz pur e alcohol) Comments Unknown Sex and Gender Information Value Date Recorded Sex Assigned at Not on file Legal Sex Female 4:50 PM 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 Gender Identity Not on file Sexual Orientation [...] on filedocumented in this encounter Care Teams Special Educator Relationship Specialty Start Date End Date Cindy Abernathy MD PCP - General 08/05/16 09/05/18 Cindy Abernathy MD PCP - General 06/21/16 08/04/16 Charanjit Ace MD [address] [facility] [address] [facility] [facility] [place], [place] [id number] PCP - General Internal Medicine 09/06/18 06/26/19 Pavan Martinez MD [address] [place] [address] [address] [place] [address], [place] [address] PCP - General Emergency Medicine 06/27/19 Mary Bonilla, CATRINA [address] [facility] [address] [place] [id number] Health And Fitness Professor 10/13/16 11/14/16 Marlin Rebolledo, CATRINA [address] [facility] [address] [place], [place] [id number] Health And Fitness Professor 07/24/17 07/24/17 Lats De Jesus DO [address] [place] [address] [address] [place] [address] Cardiovascular Disease 09/27/18 documented as of this encounter
--- NOTE | 2024-08-31 12:07 | ED_ITS ---
HPI - General Adult General Chief complaint: Fall Stated complaint: fall History of Present Illness HPI narrative: 87-year-old female presented to the emergency department for evaluation after having a ground level fall. Patient was found lying on the ground for nursing staff her facility. Patient initially denies any pain or injury but in route she did complain to EMS that she was having some chest pain and generalized weakness. Patient has no focal deficit. Patient is a poor historian due to history of bipolar disorder and dementia. Patient has no family present with her at time of evaluation. Related Data Home Medications ?Medication ?Instructions ?Recorded ?Confirmed ?Last Taken ?Type cholecalciferol (vitamin D3) 1,250 50,000 unit PO WEEKLY 03/20/19 08/31/24 03/28/22 History mcg (50,000 unit) tablet cyanocobalamin (vitamin B-12) 1,000 mcg PO DAILY 03/20/19 08/31/24 03/20/19 History 1,000 mcg capsule donepezil 10 mg tablet 10 mg PO HS 03/20/19 08/31/24 03/19/19 History polyethylene glycol 3350 17 17 g PO DAILY PRN Constipation 03/20/19 08/31/24 03/20/19 History gram/dose oral powder (Miralax) duloxetine 60 mg capsule,delayed 60 mg PO DAILY 07/16/21 08/31/24 Unknown History release lamotrigine 100 mg tablet 100 mg PO DAILY 07/16/21 08/31/24 Unknown History levetiracetam 250 mg tablet 250 mg PO BID 07/16/21 08/31/24 Unknown History (Keppra) melatonin 3 mg tablet 3 mg PO HS 07/16/21 08/31/24 Unknown History cranberry fruit 450 mg tablet 450 mg PO DAILY 04/05/22 08/31/24 Unknown History (cranberry) fluticasone propionate 50 2 spray intranasal DAILY 04/05/22 08/31/24 Unknown History mcg/actuation nasal spray,suspension (Allergy Relief (fluticasone)) mirabegron 25 mg tablet,extended 25 mg PO DAILY 04/05/22 08/31/24 Unknown History release 24 hr (Myrbetriq) Marisol-Tussin 5 ml PO Q6H PRN Congestion 09/13/22 08/31/24 Unknown History acetaminophen 325 mg tablet 650 mg PO Q4H PRN Pain (Scale 09/13/22 08/31/24 Unknown History Score 1-3) lorazepam 0.5 mg tablet 0.5 mg PO TID 09/13/22 08/31/24 Unknown History magnesium oxide 1 tablet PO DAILY 09/13/22 08/31/24 Unknown History potassium chloride 20 mEq 20 meq PO BID 09/13/22 08/31/24 Unknown History tablet,extended release(part/cryst) (Klor-Con M) sennosides 8.6 mg-docusate sodium 1 tab-cap PO DAILY 06/06/23 08/31/24 Unknown History 50 mg tablet (Senna Plus) cetirizine 10 mg tablet (24Hour 10 mg PO DAILY 05/21/24 08/31/24 Unknown History Allergy) multivitamin with iron-mineral 1 tablet PO DAILY 08/31/24 08/31/24 Unknown History pantoprazole 40 mg tablet,delayed 40 mg PO Q12H 08/31/24 08/31/24 Unknown History release Allergies Allergy/AdvReac Type Severity Reaction Status Date / Time sertraline Allergy Severe Unknown Verified 08/31/24 16:56 hydromorphone Allergy Intermediate Unknown Verified 08/31/24 16:56 Review of Systems 2 Review of Systems: ROS unobtainable: Yes unobtainable due to medical condition [facility] Past Medical History Medical History (Updated 08/31/24 @ 13:48 by Marti Zaman PA-C) Anemia Chronic kidney disease, stage 3 Psoas abscess, left 2021 Mild aortic stenosis Chronic anticoagulation Gastroesophageal reflux disease Congestive heart failure Pneumonia due to COVID-19 virus Anxiety Vitamin D deficiency Orthostatic hypotension possible 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, 2019 Thoracic compression fracture T10 Essential hypertension Osteoporosis Frequent urinary tract infections history of ESBL E coli infection March 2018 Seizure disorder Schizoaffective disorder Hyperlipidemia Depression Dementia Paroxysmal atrial fibrillation Surgical History Surgical History History of arthroscopy of left shoulder History of total left hip arthroplasty (2015) History of bladder suspension procedure History of hysterectomy Family History Family History Sibling Dementia Cerebrovascular accident Sibling Acute myocardial infarction Mother Cirrhosis Father Emphysema of lung Social History Social History Social History: Surrogate medical decision maker: Cameron Naranjo. Code status: Do not resuscitate. Smoking packs per day: 1 Smoking cigarettes per day: 20.0 Years smoked: 10 Smoking pack-years: 10.00 Smoking status: Unknown if ever smoked Second hand tobacco smoke exposure: No Alcohol intake: unknown Substance use: never Substance use type: does not use Do You Feel Safe in your Home?: Yes Lack of Transportation: No Lack of Food: Never True Current Housing: I Have Housing Concerned About Future Housing: No Difficulty Paying Gas/Electric Bills: No Difficulty Paying for Meds: No Currently Unemployed: No Education: High School Diploma/GED Difficulty w/ Childcare or Family Care: No Additional living arrangements comments: . Resident at [facility]. 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: No Agree to blood products: Yes Exam 2 Narrative: APPEARANCE: Ill-appearing HEAD: normocephalic, atraumatic. EYES: PERRLA/EOMI, conjunctivae clear. NOSE: Normal no drainage EARS:TMS clear with good light reflex. THROAT: Pharynx clear, no exudate. NECK: Supple. No adenopathy, no masses. RESPIRATORY: Airway patent, respirations nonlabored. Clear to auscultation bilaterally, no rales, rhonchi, wheezing. CARDIOVASCULAR: Regular rate and rhythm without murmurs rubs or gallops. ABDOMINAL: Soft, nontender, nondistended, normal bowel sounds MUSCULOSKELETAL: Moves all extremities. Strength/ROM intact, No edema, No calf tenderness. NEURO: Grossly intact with no focal neuro deficit Rectal exam: Hemoccult positive with formed stool within the rectal vault SKIN: Warm, dry. Normal Color Course Vital Signs Vital signs: Vital Signs Temperature 98.2 F 08/31/24 11:48 Pulse Rate 83 08/31/24 11:48 Respiratory Rate 16 08/31/24 11:48 Blood Pressure 114/68 08/31/24 11:48 Pulse Oximetry 98 08/31/24 11:48 Temperature 98.4 F 08/31/24 18:05 Pulse Rate 78 08/31/24 18:05 Respiratory Rate 17 08/31/24 18:05 Blood Pressure 161/75 H 08/31/24 18:05 Pulse Oximetry 100 08/31/24 18:05 Oxygen Delivery Room Air 08/31/24 16:00 Medical Decision Making [facility] Narrative Medical decision making narrative: 83-year-old female presents emergency department for evaluation after a per ground level fall. Patient is currently afebrile with no leukocytosis but does have a hemoglobin of 6.5. Patient does take Eliquis for history of atrial fibrillation. Patient has had a history of Hemoccult-positive stools previously patient was Hemoccult positive in the emergency department today. GI was consulted. UA was suggestive of urinary tract infection with leukocyte positive urine with 51-100 white blood cells and high bacteria. Urine culture was ordered and patient was started on IV Rocephin. Head CT was negative for acute intracranial abnormality. Chest x-ray did show some pulmonary edema versus pneumonia. Patient was negative for influenza RSV and for COVID. Case was discussed with hospitalist patient was accepted for admission. Differential Diagnosis Differential Diagnosis: Upper GI bleed, lower GI bleed, COVID, RSV, influenza, pneumonia, subdural trauma, subarachnoid hemorrhage, UTI Vital Signs Vital Signs: Vital Signs Temperature 98.2 F 08/31/24 11:48 Pulse Rate 83 08/31/24 11:48 Respiratory Rate 16 08/31/24 11:48 Blood Pressure 114/68 08/31/24 11:48 Pulse Oximetry 98 08/31/24 11:48 Temperature 98.4 F 08/31/24 18:05 Pulse Rate 78 08/31/24 18:05 Respiratory Rate 17 08/31/24 18:05 Blood Pressure 161/75 H 08/31/24 18:05 Pulse Oximetry 100 08/31/24 18:05 Oxygen Delivery Room Air 08/31/24 16:00 Lab Data Lab results reviewed: Yes I reviewed the patient's lab results. 08/31/24 12:12 08/31/24 12:12 Labs: Lab Results 08/31/24 Range/Units 12:12 WBC 7.8 (4.5-10.0) K/mm3 RBC 2.17 L (4.2-5.4) M/mm3 Hgb 6.5 L* D (12.0-15.0) g/dL Hct 21.5 L (37.0-47.0) % MCV 99.1 (80-100) fl MCH 30.0 (26-34) pg MCHC 30.2 L (32-36) g/dl RDW 14.2 (11.5-14.5) % Plt Count 248 (150-375) k/mm3 MPV 9.9 (7.4-10.4) fl Immature Gran % (Auto) 0.4 (0-0.5) % Neut % (Auto) 71.1 (45.5-73.1) % Lymph % (Auto) 20.5 (18.3-44.2) % [place]ham % (Auto) 6.5 (2.6-8.5) % Eos % (Auto) 1.2 (0-4.4) % Baso % (Auto) 0.3 (0.2-1.2) % Lymph # (Auto) 1.59 (0.9-3.2) K/mm3 [place] # (Auto) 0.5 (0.1-0.6) K/mm3 Eos # (Auto) 0.1 (0-0.3) K/mm3 Baso # (Auto) 0.0 (0.0-0.1) K/mm3 Abs Immat Gran (auto) 0.03 (0.00-0.031) K/mm3 Absolute Neuts (auto) 5.5 (1.3-6.7) K/mm3 Absolute Nucleated RBC 0.030 H (0.0-0.012) K/mm3 Nucleated RBC % 0.4 H (0.0-0.2) % PT 16.0 H (11.1-14.7) Seconds INR 1.2 APTT 31.0 (22.3-36.8) Seconds Sodium 141 (137-145) mmol/L Potassium 4.6 (3.4-5.0) mmol/L Chloride 109 H (98-107) mmol/L Carbon Dioxide 24 (22-30) mmol/L Anion Gap 8 (4-12) mmol/L BUN 48 H D (7-17) mg/dL Creatinine 0.88 (0.7-1.0) mg/dL Estim Creat Clear Calc 37 ml/min Estimated GFR > 60 (59 - ) Glucose 95 (65-110) mg/dL Calcium 8.7 (8.4-10.2) mg/dL Iron 29 L (37-170) ug/dL TIBC 350 (261-462) ug/dL % Saturation 8 L (20-50) % Total Bilirubin 0.3 (0.2-1.3) mg/dL AST 20 (14-36) U/L ALT 12 (6-35) U/L Alkaline Phosphatase 74 (38-126) U/L Troponin I < 0.012 (0.000-0.034) ng/mL NT-Pro-B Natriuret Pep 261 H (19.9-100) pg/mL Total Protein 6.0 L (6.3-8.2) g/dL Albumin 3.3 L (3.5-5.1) g/dL Urine Color Yellow (Yellow) Urine Appearance Clear (Clear) Urine pH 7.0 (5.0-9.0) Ur Specific Patterson 1.016 (1.001-1.035) Urine Protein Negative (Negative) mg/dL Urine Glucose (UA) Negative (Negative) mg/dL Urine Ketones Negative (Negative) mg/dL Ur Blood (Man) Negative (Negative) Urine Nitrate Negative (Negative) Urine Bilirubin Negative (Negative) Urine Urobilinogen 0.2 (<2.0) mg/dL Add Ur Microanalysis Reviewed Leukocyte Esterase Rfl 2+ H (Negative) JOVANY/UL Urine RBC 0-2 (0-2) /hpf Urine WBC 51-100 H (0-3) /hpf Ur Squamous Epith Cells None seen (Few) /hpf Urine Bacteria 4+ H /hpf Urine Casts 0-2 Influenza A (RT-PCR) Negative (Negative) Influenza B (RT-PCR) Negative (Negative) RSV (RT-PCR) Negative (Negative) SARS-CoV-2 RNA (RT-PCR) Negative (Negative) Imaging Data Radiologist's impression: Impressions Chest X-Ray 08/31/24 12:12 IMPRESSION: 1. Increased interstitial pattern in the bilateral lower lung zones most likely mild pulmonary edema with differential including atelectasis or pneumonia. Head CT 08/31/24 12:27 IMPRESSION: 1. No fracture or acute intracranial process. 2. 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 3. Age-related changes including mild to moderate diffuse volume loss and moderate scattered white matter hypoattenuation consistent with sequela of chronic small vessel ischemic disease. Discharge Plan Discharge Clinical Impression: Anemia, Acute UTI, Generalized weakness, Head injury Patient Disposition: Still a Patient Condition: Serious
[2024-08-31 12:36] LABS: Alanine Aminotransferase 12 U/L (6-35); Albumin Level 3.3 g/dL (3.5-5.1); Alkaline Phosphatase 74 U/L (38-126); Anion Gap 8 mmol/L (4-12); Aspartate Amino Transferase 20 U/L (14-36); Bilirubin,Total 0.3 mg/dL (0.2-1.3); Blood Urea Nitrogen 48 mg/dL (7-17); Calcium 8.7 mg/dL (8.4-10.2); Carbon Dioxide 24 mmol/L (22-30); Chloride 109 mmol/L (98-107); Estimated CRCL calculation 37 ml/min; Estimated Glomerular Filt Rate > 60; Glucose 95 mg/dL (65-110); Potassium 4.6 mmol/L (3.4-5.0); Sodium 141 mmol/L (137-145)
[2024-08-31 12:43] LABS: Add Urine Microscopic? YES; Appearance Urine Clear (Clear); Bacteria Urine 4+ /hpf; Bilirubin Urine Negative (Negative); Blood Urine Negative (Negative); Color Urine Yellow (Yellow); Glucose Urine UA Negative (Negative); Ketones Urine Negative (Negative); Leukocyte Esterase Ur 2+ LEU/UL (Negative); Need Manual Microscopic Reviewed; Nitrate Urine Negative (Negative); Non Pathogenic Casts 0-2; Protein Urine Negative (Negative); RBC Urine 0-2 /hpf (0-2); Specific Grav Ur 1.016 (1.001-1.035); Squamous Epithelial Cell Urine None Seen /hpf (Few); Urobilinogen Urine 0.2 mg/dL (<2.0); WBC Urine 51-100 /hpf (0-3)
[2024-08-31 12:48] LABS: NT Pro B Type Natriuretic Pept 261 pg/mL (19.9-100); Troponin I < 0.012 ng/mL (0.000-0.034)
[2024-08-31 12:53] LABS: Basophils Percent Auto 0.3 % (0.2-1.2); Eosinophils Absolute Auto 0.1 K/mm3 (0-0.3); Eosinophils Percent Auto 1.2 % (0-4.4); Hematocrit 21.5 % (37.0-47.0); Immature Granulocyte Absolute 0.03 K/mm3 (0.00-0.031); Immature Granulocyte Percent A 0.4 % (0-0.5); Lymphocytes Absolute Auto 1.59 K/mm3 (0.9-3.2); Lymphocytes Percent Auto 20.5 % (18.3-44.2); Mean Corpuscular HGB Conc 30.2 g/dl (32-36); Mean Corpuscular Volume 99.1 fl (80-100); Mean Platelet Volume 9.9 fl (7.4-10.4); Monocytes Absolute Auto 0.5 K/mm3 (0.1-0.6); Monocytes Percent Auto 6.5 % (2.6-8.5); Neutrophils Absolute Auto 5.5 K/mm3 (1.3-6.7); Neutrophils Percent Auto 71.1 % (45.5-73.1); Nucleated Red Blood Cells Perc 0.4 % (0.0-0.2); Platelet Count Result 248 k/mm3 (150-375); Red Blood Count 2.17 M/mm3 (4.2-5.4); Red Cell Distribution Width 14.2 % (11.5-14.5); White Blood Count 7.8 K/mm3 (4.5-10.0)
[2024-08-31 12:59] LABS: Hemoglobin 6.5 g/dL (12.0-15.0)
[2024-08-31 13:03] LABS: Influenza A QL RT-PCR Negative (Negative); Influenza B QL RT-PCR Negative (Negative); RSV RNA, RT-PCR Negative (Negative); SARS-CoV-2 RNA PCR Negative (Negative)
[2024-08-31 13:04] LABS: INR 1.2
[2024-08-31] MEDS: FAMOTIDINE 20 MG/2 ML VIAL IV PUSH (13:35)
[2024-08-31] MEDS: PANTOPRAZOLE SODIUM IV 40 MG VIAL IV PUSH (13:36)
[2024-08-31 13:37] LABS: Iron 29 ug/dL (37-170)
--- NOTE | 2024-08-31 13:45 | P.HP_ITS ---
H&P: HPI History of Present Illness Date/Time: 08/31/24 17:00 Chief Complaint: Unwitnessed fall. Narrative: This is an 83-year-old female with dementia, seizures, paroxysmal atrial fibrillation on anticoagulation, congestive heart failure, hyperlipidemia, chronic kidney disease stage 3, gastroesophageal reflux disease, hiatal hernia, gastritis, and iron deficiency anemia who presented to the emergency department via EMS from [facility] for evaluation after an unwitnessed fall. She does not remember what happened earlier today and is unable to provide much in the way of history and thus a majority of the following is obtained via a review of his EMR. She was found on the floor in her room by longterm staff but was unable to tell them home she had gotten on the floor. She was sent in f or evaluation as she was reportedly complaining of chest pain. At the time of my evaluation, she complains of some bloating and discomfort in the epigastric region what she is unable to describe. She states her appetite has been okay and she denies having difficulty swallowing. There were no reports of vomiting or dark stools. Hemoglobin and hematocrit on arrival were 6.5 and 21.5% respectively in her stool was Hemoccult positive on rectal exam per ED physician. Looking back through her chart, there has been a steady decline in her hemoglobin since June and an EGD done on 07/01/2024 for evaluation of coffee-ground emesis showed a large hiatal hernia and gastritis. Currently she is sitting up eating a cookie and has no complaints. She denies fever, chills, sweats, cold and flu symptoms, back pain, dysuria, and diarrhea. In the ED: Vital signs were stable on arrival. Labs were significant for WBC count of 7.8, hemoglobin 6.5, hematocrit 21.5%, BUN 48, creatinine 0.8, proBNP 261, total protein 6.0, albumin 3.3. Urinalysis was positive for 2+ leukocyte esterase, 51 to 100 WBC, and 4+ bacteria. Respiratory panel was negative. Head CT showed no acute findings. Chest x-ray showed increased interstitial pattern most likely pulmonary edema with differential to include atelectasis or pneumonia. She was given a dose of ceftriaxone for suspected urinary tract infection however she has no symptoms and she reports that she is always incontinent of urine and is not unusual for her to sleep throughout the entire night with a wet brief. She was ordered 2 units packed red blood cells and pantoprazole 40 mg IV and is being admitted in this setting for further workup. Review of Systems Review of Systems: 12 systems were reviewed and are negativ e except for as per HPI. 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, 2019 Thoracic compression fracture T10 Essential hypertension Osteoporosis Frequent urinary tract infections history of ESBL E coli infection March 2018 Seizure disorder Schizoaffective disorder Hyperlipidemia Depression Dementia Paroxysmal atrial fibrillation Surgical History Surgical History History of arthroscopy of left shoulder History of total left hip arthroplasty (2015) History of bladder suspension procedure History of hysterectomy Family History Family History Sibling Dementia Cerebrovascular accident Sibling Acute myocardial infarction Mother Cirrhosis Father Emphysema of lung Social History Social History Social History: Surrogate medical decision maker: Cameron Naranjo. Code status: Do not resuscitate. Smoking packs per day: 1 Smoking cigarettes per day: 20.0 Years smoked: 10 Smoking pack-years: 10.00 Smoking status: Unknown if ever smoked Second hand tobacco smoke exposure: No Alcohol intake: unknown Substance use: never Substance use type: does not use Do You Feel Safe in your Home?: Yes Lack of Transportation: No Lack of Food: Never True Current Housing: I Have Housing Concerned About Future Housing: No Difficulty Paying Gas/Electric Bills: No Difficulty Paying for Meds: No Currently Unemployed: No Education: High School Diploma/GED Difficulty w/ Childcare or Family Care: No Additional living arrangements comments: . Resident at [facility]. 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: No Agree to blood products: Yes Meds Home Medications and Allergies Home Medications ?Medication ?Instructions ?Recorded ?Confirmed ?Type cholecalciferol (vitamin D3) 1,250 50,000 unit PO WEEKLY 03/20/19 08/31/24 History mcg (50,000 unit) tablet cyanocobalamin (vitamin B-12) 1,000 mcg PO DAILY 03/20/19 08/31/24 History 1,000 mcg capsule donepezil 10 mg tablet 10 mg PO HS 03/20/19 08/31/24 History polyethylene glycol 3350 17 17 g PO DAILY PRN Constipation 03/20/19 08/31/24 History gram/dose oral powder (Miralax) duloxetine 60 mg capsule,delayed 60 mg PO DAILY 07/16/21 08/31/24 History release lamotrigine 100 mg tablet 100 mg PO DAILY 07/16/21 08/31/24 History levetiracetam 250 mg tablet 250 mg PO BID 07/16/21 08/31/24 History (Keppra) melatonin 3 mg tablet 3 mg PO HS 07/16/21 08/31/24 History cranberry fruit 450 mg tablet 450 mg PO DAILY 04/05/22 08/31/24 History (cranberry) fluticasone propionate 50 2 spray intranasal DAILY 04/05/22 08/31/24 History mcg/actuation nasal spray,suspension (Allergy Relief (fluticasone)) mirabegron 25 mg tablet,extended 25 mg PO DAILY 04/05/22 08/31/24 History release 24 hr (Myrbetriq) Marisol-Tussin 5 ml PO Q6H PRN Congestion 09/13/22 08/31/24 History acetaminophen 325 mg tablet 650 mg PO Q4H PRN Pain (Scale 09/13/22 08/31/24 History Score 1-3) lorazepam 0.5 mg tablet 0.5 mg PO TID 09/13/22 08/31/24 History magnesium oxide 1 tablet PO DAILY 09/13/22 08/31/24 History potassium chloride 20 mEq 20 meq PO BID 09/13/22 08/31/24 History tablet,extended release(part/cryst) (Klor-Con M) ferrous sulfate 325 mg (65 mg 325 mg PO DAILY 30 days #30 tabs 09/17/22 08/31/24 Rx iron) tablet,delayed release sennosides 8.6 mg-docusate sodium 1 tab-cap PO DAILY 06/06/23 08/31/24 History 50 mg tablet (Senna Plus) apixaban 5 mg tablet (Eliquis) 5 mg PO Q12HR #60 tabs 06/13/23 08/31/24 Rx diltiazem HCl 120 mg 120 mg PO DAILY #30 caps 06/13/23 08/31/24 Rx capsule,extended release 24 hr furosemide 40 mg tablet 40 mg PO DAILY #30 tabs 06/13/23 08/31/24 Rx cetirizine 10 mg tablet (24Hour 10 mg PO DAILY 05/21/24 08/31/24 History Allergy) multivitamin with iron-mineral 1 tablet PO DAILY 08/31/24 08/31/24 History pantoprazole 40 mg tablet,delayed 40 mg PO Q12H 08/31/24 08/31/24 History release Allergies Allergy/AdvReac Type Severity Reaction Status Date / Time sertraline Allergy Severe Unknown Verified 08/31/24 16:56 hydromorphone Allergy Intermediate Unknown Verified 08/31/24 16:56 Vital Signs Vital Signs - 24 hr 08/31/24 11:48 Temperature 98.2 F Pulse Rate 83 Respiratory Rate 16 Blood Pressure 114/68 Pulse Oximetry 98 Exam Narrative: General: Chronically ill-appearing female sitting up in bed in no acute distress. Weight: 63.8 kg. BMI: 24.9. HEENT:? PERRL, EOMI.? Sclerae anicteric. Tacky mucous membranes. Neck:? Supple. Respiratory:?Frequent, dry cough which is chronic. Respirations are nonlabored and lungs are clear to auscultation. Cardiovascular:? Regular rate and rhythm. Systolic murmur heard at the left sternal border. Gastrointestinal:? Abdomen is soft and nondistended with positive bowel sounds. She is a bit tender to deeper palpation epigastric region. No guarding or rebound tenderness. Skin:? Warm and dry. Occasional bruising on the extremities. Extremities:? No cyanosis, clubbing, or significant edema.? Radial and pedal pulses intact.? Neurologic:? Alert. Cranial nerves 2-12 grossly intact. No gross focal deficits schedule conversation. Psychiatric: Pleasantly confused and cooperative. H&P: Results Labs Labs: Short CBC 08/31/24 Range/Units 12:12 WBC 7.8 (4.5-10.0) K/mm3 Hgb 6.5 L* D (12.0-15.0) g/dL Hct 21.5 L (37.0-47.0) % Plt Count 248 (150-375) k/mm3 BMP 08/31/24 12:12 Sodium 141 Potassium 4.6 Chloride 109 H Carbon Dioxide 24 BUN 48 H D Creatinine 0.88 Glucose 95 Calcium 8.7 Cardiac Enzymes 08/31/24 Range/Units 12:12 Troponin I < 0.012 (0.000-0.034) ng/mL Liver Function 08/31/24 Range/Units 12:12 Total Bilirubin 0.3 (0.2-1.3) mg/dL AST 20 (14-36) U/L ALT 12 (6-35) U/L Alkaline Phosphatase 74 (38-126) U/L Albumin 3.3 L (3.5-5.1) g/dL Urine 08/31/24 Range/Units 12:12 Urine Color Yellow (Yellow) Urine Appearance Clear (Clear) Urine pH 7.0 (5.0-9.0) Ur Specific [place] 1.016 (1.001-1.035) Urine Protein Negative (Negative) mg/dL Urine Glucose (UA) Negative (Negative) mg/dL Imaging Chest X-Ray 08/31/24 12:12 IMPRESSION: 1. Increased interstitial pattern in the bilateral lower lung zones most likely mild pulmonary edema with differential including atelectasis or pneumonia. Head CT 08/31/24 12:27 IMPRESSION: 1. No fracture or acute intracranial process. 2. 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 3. Age-related changes including mild to moderate diffuse volume loss and moderate scattered white matter hypoattenuation consistent with sequela of chronic small vessel ischemic disease. Assessment and Plan Assessment and plan (1) Profound anemia: Code(s): D64.9 - Anemia, unspecified Status: Acute (2) Occult GI bleeding: Code(s): R19.5 - Other fecal abnormalities Status: Acute (3) Hiatal hernia: Code(s): K44.9 - Diaphragmatic hernia without obstruction or gangrene Status: Acute (4) Bacteriuria with pyuria: Code(s): R82.71 - Bacteriuria; R82.81 - Pyuria Status: Acute (5) Dementia: Qualifiers: Dementia type: Alzheimer's Alzheimer's disease onset: late onset Dementia severity: moderate Dementia behavioral or psychological symptom: with other behavioral disturbance Qualified Code(s): G30.1 - Alzheimer's disease with late onset; F02.B18 - Dementia in other diseases classified elsewhere, moderate, with other behavioral disturbance Code(s): F03.90 - Unspecified dementia, unspecified severity, without behavioral disturbance, psychotic disturbance, mood disturbance, and anxiety Status: Acute (6) Seizure disorder: Code(s): G40.909 - Epilepsy, unspecified, not intractable, without status epilepticus Status: Chronic (7) Essential hypertension: Code(s): I10 - Essential (primary) hypertension Status: Chronic (8) Congestive heart failure: Qualifiers: Heart failure type: unspecified Heart failure chronicity: chronic Qualified Code(s): I50.9 - Heart failure, unspecified Code(s): I50.9 - Heart failure, unspecified Status: Acute (9) Paroxysmal atrial fibrillation: Code(s): I48.0 - Paroxysmal atrial fibrillation Status: Chronic (10) Chronic anticoagulation: Code(s): Z79.01 - joint terminal attack controller (current) use of anticoagulants Status: Acute (11) Psychiatric illness: Code(s): F99 - Mental disorder, not otherwise specified Status: Acute (12) Chronic kidney disease, stage 3: Code(s): N18.30 - Chronic kidney disease, stage 3 unspecified Status: Acute Plan The patient presented to the emergency department for evaluation after a presumed unwitnessed fall as she was found on the floor in her room by longterm staff as detailed in HPI. Labs, imaging, EKG, and all reports were personally reviewed. Vital signs were stable on arrival. She was found to have a hemoglobin of 6.5 with Hemoccult-positive stools and she will be transfused 2 units of packed red blood cells. Continue pantoprazole 40 mg IV b.i.d.. She will be NPO after midnight for possible EGD tomorrow. Urinalysis was positive for leukocyte esterase, bacteria, and increased WBCs however she has no urinary symptoms, is afebrile, and has a normal white blood cell count thus no indication for antibiotics. She may furosemide between units of packed red blood cells but appears relatively euvolemic at this time. She is currently in a normal sinus rhythm. Hold apixaban given profound anemia. Renal function is stable on review of previous labs. No acute issues with regards her psychiatric illnesses. Her home medications will be reviewed and resumed as appropriate. Findings and treatment plan were discussed with the patient. Questions were solicited and answered to satisfaction. The patient's medical management will be taken over by the hospitalist team in a.m. Quality VTE Prophylaxis VTE prophylaxis: mechanical ordered If No VTE Prophylaxis Answer both mechanical and pharmacologic: Reason no pharmacologic proph: medical contraindication (anemia, occult GI bleeding) The patient has been admitted under observation status. Hospitalist [facility] Advance Care Plan I have confirmed that the patient's Advanced Care Plan is present, code status is documented, or surrogate decision maker is listed in patient medical record.: Yes Medication Reconciliation I have utilized all available resources to obtain, update and review the patients current medications (includes all prescriptions, OTC, herbals, cannabis, and nutritional supplements).: Yes
[2024-08-31 13:47] LABS: Percent Iron Saturation 8 % (20-50)
--- NOTE | 2024-08-31 15:32 | ADMGEN ---
This patient, Kenton Wilhelm, was admitted to [facility] Surg Room 325-02. Patient/family oriented to hospital policies and general routines including ID bracelet, bed and alarms, visiting hours, pain management, procedures, bathroom and other care routines, personal items, smoking policy, room service/diet, and visiting hours. Information on how to activate the Rapid Response Team has been discussed. Patient/Family are encouraged to report perceived risks to care and to ask questions if they do not understand what they are told or what they should do.
[2024-08-31 15:36] LABS: Troponin I 0.019 ng/mL (0.000-0.034)
[2024-08-31] MEDS: SODIUM CHLORIDE 0.9% IV 250 ML 30 ML IV CONT (16:50)
[2024-08-31 18:19] LABS: Troponin I < 0.012 ng/mL (0.000-0.034)
[2024-09-01] VITALS (10 sets, daily range): BP systolic 127–146; BP diastolic 49–94; PULSE 62–77; RESP 18–20; TEMP 36.3–36.6; O2SAT 95–97
[2024-09-01 00:59] LABS: Hematocrit 28.2 % (37.0-47.0); Hemoglobin 9.3 g/dL (12.0-15.0)
[2024-09-01 06:11] LABS: Hematocrit 29.7 % (37.0-47.0); Hemoglobin 9.7 g/dL (12.0-15.0); Mean Corpuscular HGB Conc 32.7 g/dl (32-36); Mean Corpuscular Hemoglobin 29.7 pg (26-34); Mean Corpuscular Volume 90.8 fl (80-100); Mean Platelet Volume 9.4 fl (7.4-10.4); Platelet Count Result 181 k/mm3 (150-375); Red Blood Count 3.27 M/mm3 (4.2-5.4); Red Cell Distribution Width 15.3 % (11.5-14.5); White Blood Count 5.8 K/mm3 (4.5-10.0)
[2024-09-01 06:37] LABS: Anion Gap 4 mmol/L (4-12); Blood Urea Nitrogen 30 mg/dL (7-17); Calcium 8.6 mg/dL (8.4-10.2); Carbon Dioxide 23 mmol/L (22-30); Chloride 112 mmol/L (98-107); Estimated CRCL calculation 35 ml/min; Estimated Glomerular Filt Rate > 60; Glucose 86 mg/dL (65-110); Magnesium 1.9 mg/dL (1.6-2.3); Potassium 3.8 mmol/L (3.4-5.0); Sodium 139 mmol/L (137-145)
[2024-09-01] MEDS: PANTOPRAZOLE SODIUM IV 40 MG VIAL IV PUSH (08:08)
--- NOTE | 2024-09-01 09:49 | P.PNIM_ITS ---
Progress Note: A&P Assessment and Plan (1) Profound anemia: Code(s): D64.9 - Anemia, unspecified Status: Acute Assessment and Plan: patient sent from [facility] facility after unwitnessed fall was found to have a hemoglobin of 6.5 and was transfused 2 units PRBCs she had recent hospitalization with EGD 06/27/2024 which was showing gastritis and hiatal hernia. hemoccult stool was positive however patient does have history of iron deficiency anemia, but is currently on AC Eliquis 5 mg b.i.d. currently hemodynamically stable * GI consulted recommendations appreciated * continue PPI * Monitor hgb transfuse <7.0 * continued ferrous sulfate * continue to hold Eliquis resume her GI recommendations * NPO currently for possible EGD (2) Occult GI bleeding: Code(s): R19.5 - Other fecal abnormalities Status: Acute Assessment and Plan: SEE ABOVE (3) Bacteriuria with pyuria: Code(s): R82.71 - Bacteriuria; R82.81 - Pyuria Status: Acute Assessment and Plan: Urinalysis was positive for 2+ leukocyte esterase, 51 to 100 WBC, and 4+ bacteria * continue Rocephin pending cultures (4) Dementia: Qualifiers: Alzheimer's disease onset: late onset Dementia behavioral or psycho logical symptom: with other behavioral disturbance Dementia severity: moderate Dementia type: Alzheimer's Qualified Code(s): G30.1 - Alzheimer's disease with late onset; F02.B18 - Dementia in other diseases classified elsewhere, moderate, with other behavioral disturbance Code(s): F03.90 - Unspecified dementia, unspecified severity, without behavioral disturbance, psychotic disturbance, mood disturbance, and anxiety Status: Acute Assessment and Plan: * continue patient's donepezil (5) Seizure disorder: Code(s): G40.909 - Epilepsy, unspecified, not intractable, without status epilepticus Status: Chronic Assessment and Plan: * continued patient's Keppra * seizure precautions if indicated (6) Essential hypertension: Code(s): I10 - Essential (primary) hypertension Status: Chronic Assessment and Plan: * continue diltiazem (7) Congestive heart failure: Qualifiers: Heart failure chronicity: chronic Heart failure type: unspecified Qualified Code(s): I50.9 - Heart failure, unspecified Code(s): I50.9 - Heart failure, unspecified Status: Acute Assessment and Plan: * does not appear in exacerbation * will continue her 40 of Lasix daily * monitor for fluid overload need IV Lasix between units of blood (8) Paroxysmal atrial fibrillation: Code(s): I48.0 - Paroxysmal atrial fibrillation Status: Chronic Assessment and Plan: * continued her diltiazem currently holding Eliquis for possible GI bleed (9) Chronic anticoagulation: Code(s): Z79.01 - intermediate accountant (current) use of anticoagulants Status: Acute Assessment and Plan: * Eliquis on hold for GI bleed will resume per GI recommendations (10) Psychiatric illness: Code(s): F99 - Mental disorder, not otherwise specified Status: Acute Assessment and Plan: * continue duloxetine and Lamictal Plan Code status: DNR DVT prophylaxis: SCD's Stress ulcer prophylaxis: Protonix 40 daily PT/OT notes: Disposition: Patient continues admission to the medical unit for further evaluation and treatment of possible GI bleed and urinary tract infection GI consulted for further recommendations and possible EGD will continue to hold patient's Eliquis at this time refer to GI recommendation for resuming. Time Spent With Patient Time with patient: 15 - 25 minutes Subjective Date/time seen: 09/01/24 09:49 Interval history: patient is an 83-year-old female who was admitted from correction facility after an unwitnessed fall she was found have hemoglobin of 6.5 and occult stool was positive she was transfused 2 units PRBCs and started on pantoprazole with consult to GI with plans for EGD for direct visualization. her urine was suspicious for UTI is currently receiving IV abx treatment 09/01/2024: Patient pleasantly confused reports she just feels unwell and weak. Patient alert and oriented x1 which is her baseline. HGB stable after 2 units PRBCs. Review of Systems Review of Systems: pleasantly confused HX of dementia and CVA Alert x 1 All systems reviewed & are unremarkable except as noted in HPI and below ROS unobtainable: Yes unobtainable due to mental status Exam Narrative: General: Chronically ill-appearing female NAD Respiratory:?Clear on auscultation, chronic dry cough Cardiovascular:? RRR Gastrointestinal:? Abdomen is soft and nondistended with positive bowel sounds. region. No guarding or rebound tenderness. Skin:? Deep tissue bruising Extremities:? No edema Neurologic:? Alert x1 at baseline Psychiatric: Pleasantly confused and cooperative. Objective Data Vital Signs Vital Signs: Vital Signs - 24 hr 08/31/24 11:48 08/31/24 15:07 08/31/24 15:45 Temperature 98.2 F 99.0 F Pulse Rate 83 98 80 Respiratory Rate 16 18 20 Blood Pressure 114/68 127/57 L 164/59 H Pulse Oximetry 98 98 99 Oxygen Delivery 08/31/24 16:00 08/31/24 16:00 08/31/24 16:50 Temperature 97.9 F Pulse Rate 89 92 Respiratory Rate 18 Blood Pressure 179/74 H Pulse Oximetry 100 Oxygen Delivery Room Air 08/31/24 17:05 08/31/24 18:05 08/31/24 19:05 Temperature 99.1 F 98.4 F 99.0 F Pulse Rate 81 78 81 Respiratory Rate 17 17 16 Blood Pressure 178/65 H 161/75 H 165/76 H Pulse Oximetry 100 100 100 Oxygen Delivery 08/31/24 20:00 08/31/24 20:00 08/31/24 20:05 Temperature 98.5 F Pulse Rate 77 86 Respiratory Rate 17 Blood Pressure 169/75 H Pulse Oximetry 99 Oxygen Delivery Room Air 08/31/24 21:00 08/31/24 21:05 08/31/24 21:53 Temperature 98.2 F 98.5 F 98 F Pulse Rate 83 86 86 Respiratory Rate 16 17 17 Blood Pressure 149/50 H 169/75 H 153/57 H Pulse Oximetry 100 99 99 Oxygen Delivery 08/31/24 22:09 08/31/24 23:09 08/31/24 23:45 Temperature 98.2 F 98.4 F 98.5 F Pulse Rate 86 72 80 Respiratory Rate 18 16 17 Blood Pressure 151/60 H 121/61 161/73 H Pulse Oximetry 100 100 100 Oxygen Delivery 09/01/24 00:00 09/01/24 04:00 09/01/24 06:00 Temperature 97.3 F L Pulse Rate 77 75 72 Respiratory Rate 18 Blood Pressure 146/94 H Pulse Oximetry 95 Oxygen Delivery 09/01/24 08:00 Temperature Pulse Rate 62 Respiratory Rate Blood Pressure Pulse Oximetry Oxygen Delivery Intake/Output Intake/Output: Intake & Output 08/29/24 08/30/24 08/31/24 09/01/24 23:59 23:59 23:59 23:59 Intake Total 990 290 Balance 990 290 Meds/Results Medications: Active Medications Generic Name Dose Route Start Last Admin Trade Name Freq PRN Reason Stop Dose Admin Acetaminophen 650 mg 08/31/24 21:17 Acetaminophen 325 Mg Tablet PO Q6H PRN Mild Pain (1-3) or Fever Ceftriaxone Sodium 1 gm in 50 mls @ 100 mls/hr 09/01/24 09:00 09/01/24 08:37 Rocephin 1 Gm/Ns 50 Ml IVPB Infused Q24H ALEXIS Infusion Pantoprazole Sodium 40 mg 09/01/24 09:00 09/01/24 08:08 Pantoprazole Sodium Iv 40 Mg Vial IV PUSH 40 mg Q12HR ALEXIS Administration Radiology Results: ITS Impressions Chest X-Ray 08/31/24 12:12 IMPRESSION: 1. Increased interstitial pattern in the bilateral lower lung zones most likely mild pulmonary edema with differential including atelectasis or pneumonia. Head CT 08/31/24 12:27 IMPRESSION: 1. No fracture or acute intracranial process. 2. 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 3. Age-related changes including mild to moderate diffuse volume loss and moderate scattered white matter hypoattenuation consistent with sequela of chronic small vessel ischemic disease. Labs Labs: Laboratory Results - last 24 hr 08/31/24 08/31/24 08/31/24 12:12 14:51 15:05 WBC 7.8 RBC 2.17 L Hgb 6.5 L* D Hct 21.5 L MCV 99.1 MCH 30.0 MCHC 30.2 L RDW 14.2 Plt Count 248 MPV 9.9 Immature Gran % (Auto) 0.4 Neut % (Auto) 71.1 Lymph % (Auto) 20.5 Coffey % (Auto) 6.5 Eos % (Auto) 1.2 Baso % (Auto) 0.3 Lymph # (Auto) 1.59 Coffey # (Auto) 0.5 Eos # (Auto) 0.1 Baso # (Auto) 0.0 Abs Immat Gran (auto) 0.03 Absolute Neuts (auto) 5.5 Absolute Nucleated RBC 0.030 H Nucleated RBC % 0.4 H PT 16.0 H INR 1.2 APTT 31.0 Sodium 141 Potassium 4.6 Chloride 109 H Carbon Dioxide 24 Anion Gap 8 BUN 48 H D Creatinine 0.88 Estim Creat Clear Calc 37 Estimated GFR > 60 Glucose 95 Calcium 8.7 Magnesium Iron 29 L TIBC 350 % Saturation 8 L Total Bilirubin 0.3 AST 20 ALT 12 Alkaline Phosphatase 74 Troponin I < 0.012 0.019 D NT-Pro-B Natriuret Pep 261 H Total Protein 6.0 L Albumin 3.3 L Urine Color Yellow Urine Appearance Clear Urine pH 7.0 Ur Specific Fleming 1.016 Urine Protein Negative Urine Glucose (UA) Negative Urine Ketones Negative Ur Blood (Man) Negative Urine Nitrate Negative Urine Bilirubin Negative Urine Urobilinogen 0.2 Add Ur Microanalysis Reviewed Leukocyte Esterase Rfl 2+ H Urine RBC 0-2 Urine WBC 51-100 H Ur Squamous Epith Cells None seen Urine Bacteria 4+ H Urine Casts 0-2 Influenza A (RT-PCR) Negative Influenza B (RT-PCR) Negative RSV (RT-PCR) Negative SARS-CoV-2 RNA (RT-PCR) Negative Blood Type A Positive Antibody Screen Negative Crossmatch See Detail 08/31/24 09/01/24 09/01/24 17:50 00:52 05:57 WBC 5.8 RBC 3.27 L Hgb 9.3 L 9.7 L Hct 28.2 L 29.7 L MCV 90.8 D MCH 29.7 MCHC 32.7 RDW 15.3 H Plt Count 181 MPV 9.4 Immature Gran % (Auto) Neut % (Auto) Lymph % (Auto) Coffey % (Auto) Eos % (Auto) Baso % (Auto) Lymph # (Auto) Coffey # (Auto) Eos # (Auto) Baso # (Auto) Abs Immat Gran (auto) Absolute Neuts (auto) Absolute Nucleated RBC Nucleated RBC % PT INR APTT Sodium 139 Potassium 3.8 Chloride 112 H Carbon Dioxide 23 Anion Gap 4 BUN 30 H D Creatinine 0.86 Estim Creat Clear Calc 35 Estimated GFR > 60 Glucose 86 Calcium 8.6 Magnesium 1.9 Iron TIBC % Saturation Total Bilirubin AST ALT Alkaline Phosphatase Troponin I < 0.012 D NT-Pro-B Natriuret Pep Total Protein Albumin Urine Color Urine Appearance Urine pH Ur Specific Fleming Urine Protein Urine Glucose (UA) Urine Ketones Ur Blood (Man) Urine Nitrate Urine Bilirubin Urine Urobilinogen Add Ur Microanalysis Leukocyte Esterase Rfl Urine RBC Urine WBC Ur Squamous Epith Cells Urine Bacteria Urine Casts Influenza A (RT-PCR) Influenza B (RT-PCR) RSV (RT-PCR) SARS-CoV-2 RNA (RT-PCR) Blood Type Antibody Screen Crossmatch Quality VTE Prophylaxis VTE prophylaxis: mechanical ordered -Patient's previous records reviewed on admission -ER notes reviewed in detail on admission -discussed all findings and current treatment plan with patient/Family/POA -Consultations reviewed for recommendations -Patient's disposition for safe discharge discussed with corrections caseworker Dictation performed by [employer] direct speech recognition software, therefore associate store leader variants and typographical errors may occur. Hospitalist MIPS Advance Care Plan I have confirmed that the patient's Advanced Care Plan is present, code status is documented, or surrogate decision maker is listed in patient medical record.: Yes Medication Reconciliation I have utilized all available resources to obtain, update and review the patients current medications (includes all prescriptions, OTC, herbals, cannabis, and nutritional supplements).: Yes The patient is not eligible for med reconciliation; the patient is in a emergent medical situation where delaying treatment would jeopardize the patients health.: No
[2024-09-01] MEDS: FLUTICASONE PROPIONATE 0.05% NA SPR 16 GM BTL (*BKC) 2 SPRAY NASAL (10:20)
[2024-09-01] MEDS: dilTIAZem HCL CD 120 MG CAP.24HR PO (10:22)
[2024-09-01] MEDS: FERROUS SULFATE 325 MG TABLET DR PO (10:22)
[2024-09-01] MEDS: levETIRAcetam 250 MG TABLET PO ×2 (10:22→21:01)
[2024-09-01] MEDS: MAGNESIUM OXIDE 400 MG TABLET PO (10:22)
[2024-09-01] MEDS: FUROSEMIDE 40 MG TABLET PO (10:22)
[2024-09-01] MEDS: SENNA/DOCUSATE SODIUM TABLET 1 TAB PO (10:23)
[2024-09-01] MEDS: lamoTRIgine 100 MG TABLET PO (10:23)
[2024-09-01] MEDS: DULoxetine HCL 60 MG CAPSULE.DR PO (10:23)
[2024-09-01] MEDS: POTASSIUM CHLORIDE 20 MEQ ER TABLET PO ×2 (10:23→16:43)
[2024-09-01] MEDS: THERAPEUTIC MULTIVITAMINS/MINERALS TAB (*BKC) 1 TABLET PO (10:23)
[2024-09-01] MEDS: MIRABEGRON 25 MG ER TABLET PO (10:25)
--- NOTE | 2024-09-01 11:27 | P.CONGI_ITS ---
Assessment and Plan Assessment and plan (1) Iron deficiency anemia: Code(s): D50.9 - Iron deficiency anemia, unspecified Status: Acute Assessment and Plan: In evaluating the etiology of this patient's iron deficiency anemia, differential diagnosis includes a colorectal neoplasm. Additionally, given her history of a large hiatal hernia, the presence of Shay ulcers within the hernia sac is another significant consideration. To investigate these potential causes of her anemia, I will order a colonoscopy and a repeat an EGD tomorrow, with a specific focus on identifying any Shay ulcers. In the meantime, the patient has already undergone blood transfusion, with an appropriate rise in her hemoglobin level. GI Consult Note Consult date/time: 09/01/24 11:27 Reason for consult: Iron deficiency anemia HPI: Ms. Kenton Wilhelm, an 83-year-old female, was admitted on August 31, 2024, after experiencing a ground-level fall. Her past medical history is significant for bipolar disorder, dementia, and atrial fibrillation, for which she is anticoagulated. Upon admission, urinalysis demonstrated leukocyturia, prompting the initiation of Rocephin. Subsequent laboratory evaluation revealed a severe anemia with a hemoglobin level of 6.5 g/dL, accompanied by dark brown, heme- positive stools and a low iron saturation of 8%. This consultation is requested to investigate the etiology of her iron deficiency anemia. Pertinently, an EGD performed in June of this year showed a large 7 cm hiatal hernia but no evidence of neoplasm or peptic ulcer disease. The patient reports no hematemesis, melena, or hematochezia. Due to her cognitive impairment, she is a poor historian, and a detailed history regarding potential weight loss is unobtainable. 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, 2019 Thoracic compression fracture T10 Essential hypertension Osteoporosis Frequent urinary tract infections history of ESBL E coli infection March 2018 Seizure disorder Schizoaffective disorder Hyperlipidemia Depression Dementia Paroxysmal atrial fibrillation Surgical History Surgical History History of arthroscopy of left shoulder History of total left hip arthroplasty (2016) History of bladder suspension procedure History of hysterectomy Family History Family History Sibling Dementia Cerebrovascular accident Sibling Acute myocardial infarction Mother Cirrhosis Father Emphysema of lung Social History Social History Social History: Surrogate medical decision maker: Cameron Naranjo. Code status: Do not resuscitate. Smoking packs per day: 1 Smoking cigarettes per day: 20.0 Years smoked: 10 Smoking pack-years: 10.00 Smoking status: Unknown if ever smoked Second hand tobacco smoke exposure: No Alcohol intake: unknown Substance use: never Substance use type: does not use Do You Feel Safe in your Home?: Yes Lack of Transportation: No Lack of Food: Never True Current Housing: I Have Housing Concerned About Future Housing: No Difficulty Paying Gas/Electric Bills: No Difficulty Paying for Meds: No Currently Unemployed: No Education: High School Diploma/GED Difficulty w/ Childcare or Family Care: No Additional living arrangements comments: . Resident at [facility]. 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: No Agree to blood products: Yes Meds Home Medications and Allergies Home Medications ?Medication ?Instructions ?Recorded ?Confirmed ?Type cholecalciferol (vitamin D3) 1,250 50,000 unit PO WEEKLY 03/20/19 08/31/24 History mcg (50,000 unit) tablet cyanocobalamin (vitamin B-12) 1,000 mcg PO DAILY 03/20/19 08/31/24 History 1,000 mcg capsule donepezil 10 mg tablet 10 mg PO HS 03/20/19 08/31/24 History polyethylene glycol 3350 17 17 g PO DAILY PRN Constipation 03/20/19 08/31/24 History gram/dose oral powder (Miralax) duloxetine 60 mg capsule,delayed 60 mg PO DAILY 07/16/21 08/31/24 History release lamotrigine 100 mg tablet 100 mg PO DAILY 07/16/21 08/31/24 History levetiracetam 250 mg tablet 250 mg PO BID 07/16/21 08/31/24 History (Keppra) melatonin 3 mg tablet 3 mg PO HS 07/16/21 08/31/24 History cranberry fruit 450 mg tablet 450 mg PO DAILY 04/05/22 08/31/24 History (cranberry) fluticasone propionate 50 2 spray intranasal DAILY 04/05/22 08/31/24 History mcg/actuation nasal spray,suspension (Allergy Relief (fluticasone)) mirabegron 25 mg tablet,extended 25 mg PO DAILY 04/05/22 08/31/24 History release 24 hr (Myrbetriq) Marisol-Tussin 5 ml PO Q6H PRN Congestion 09/13/22 08/31/24 History acetaminophen 325 mg tablet 650 mg PO Q4H PRN Pain (Scale 09/13/22 08/31/24 History Score 1-3) lorazepam 0.5 mg tablet 0.5 mg PO TID 09/13/22 08/31/24 History magnesium oxide 1 tablet PO DAILY 09/13/22 08/31/24 History potassium chloride 20 mEq 20 meq PO BID 09/13/22 08/31/24 History tablet,extended release(part/cryst) (Klor-Con M) ferrous sulfate 325 mg (65 mg 325 mg PO DAILY 30 days #30 tabs 09/17/22 08/31/24 Rx iron) tablet,delayed release sennosides 8.6 mg-docusate sodium 1 tab-cap PO DAILY 06/06/23 08/31/24 History 50 mg tablet (Senna Plus) apixaban 5 mg tablet (Eliquis) 5 mg PO Q12HR #60 tabs 06/13/23 08/31/24 Rx diltiazem HCl 120 mg 120 mg PO DAILY #30 caps 06/13/23 08/31/24 Rx capsule,extended release 24 hr furosemide 40 mg tablet 40 mg PO DAILY #30 tabs 06/13/23 08/31/24 Rx cetirizine 10 mg tablet (24Hour 10 mg PO DAILY 05/21/24 08/31/24 History Allergy) multivitamin with iron-mineral 1 tablet PO DAILY 08/31/24 08/31/24 History pantoprazole 40 mg tablet,delayed 40 mg PO Q12H 08/31/24 08/31/24 History release Allergies Allergy/AdvReac Type Severity Reaction Status Date / Time sertraline Allergy Severe Unknown Verified 08/31/24 16:56 hydromorphone Allergy Intermediate Unknown Verified 08/31/24 16:56 Vital Signs Vital Signs - 24 hr 08/31/24 11:48 08/31/24 15:07 08/31/24 15:45 Temperature 98.2 F 99.0 F Pulse Rate 83 98 80 Respiratory Rate 16 18 20 Blood Pressure 114/68 127/57 L 164/59 H Pulse Oximetry 98 98 99 Oxygen Delivery 08/31/24 16:00 08/31/24 16:00 08/31/24 16:50 Temperature 97.9 F Pulse Rate 89 92 Respiratory Rate 18 Blood Pressure 179/74 H Pulse Oximetry 100 Oxygen Delivery Room Air 08/31/24 17:05 08/31/24 18:05 08/31/24 19:05 Temperature 99.1 F 98.4 F 99.0 F Pulse Rate 81 78 81 Respiratory Rate 17 17 16 Blood Pressure 178/65 H 161/75 H 165/76 H Pulse Oximetry 100 100 100 Oxygen Delivery 08/31/24 20:00 08/31/24 20:00 08/31/24 20:05 Temperature 98.5 F Pulse Rate 77 86 Respiratory Rate 17 Blood Pressure 169/75 H Pulse Oximetry 99 Oxygen Delivery Room Air 08/31/24 21:00 08/31/24 21:05 08/31/24 21:53 Temperature 98.2 F 98.5 F 98 F Pulse Rate 83 86 86 Respiratory Rate 16 17 17 Blood Pressure 149/50 H 169/75 H 153/57 H Pulse Oximetry 100 99 99 Oxygen Delivery 08/31/24 22:09 08/31/24 23:09 08/31/24 23:45 Temperature 98.2 F 98.4 F 98.5 F Pulse Rate 86 72 80 Respiratory Rate 18 16 17 Blood Pressure 151/60 H 121/61 161/73 H Pulse Oximetry 100 100 100 Oxygen Delivery 09/01/24 00:00 09/01/24 04:00 09/01/24 06:00 Temperature 97.3 F L Pulse Rate 77 75 72 Respiratory Rate 18 Blood Pressure 146/94 H Pulse Oximetry 95 Oxygen Delivery 09/01/24 08:00 Temperature Pulse Rate 62 Respiratory Rate Blood Pressure Pulse Oximetry Oxygen Delivery Exam 2 Narrative: General: Chronically ill-appearing female sitting up in bed in no acute distress. Weight: 63.8 kg. BMI: 24.9. HEENT:? PERRL, EOMI.? Sclerae anicteric. Tacky mucous membranes. Neck:? Supple. Respiratory:?Frequent, dry cough which is chronic. Respirations are nonlabored and lungs are clear to auscultation. Cardiovascular:? Regular rate and rhythm. Systolic murmur heard at the left sternal border. Gastrointestinal:? Abdomen is soft and nondistended with positive bowel sounds. She is a bit tender to deeper palpation epigastric region. No guarding or rebound tenderness. Skin:? Warm and dry. Occasional bruising on the extremities. Extremities:? No cyanosis, clubbing, or significant edema.? Radial and pedal pulses intact.? Neurologic:? Alert. Cranial nerves 2-12 grossly intact. No gross focal deficits schedule conversation. Psychiatric: Pleasantly confused and cooperative. Results Labs 09/01/24 05:57 09/01/24 05:57 Labs: Short CBC 08/31/24 09/01/24 09/01/24 Range/Units 12:12 00:52 05:57 WBC 7.8 5.8 (4.5-10.0) K/mm3 Hgb 6.5 L* D 9.3 L 9.7 L (12.0-15.0) g/dL Hct 21.5 L 28.2 L 29.7 L (37.0-47.0) % Plt Count 248 181 (150-375) k/mm3 [facility] 08/31/24 09/01/24 12:12 05:57 Sodium 141 139 Potassium 4.6 3.8 Chloride 109 H 112 H Carbon Dioxide 24 23 BUN 48 H D 30 H D Creatinine 0.88 0.86 Glucose 95 86 Calcium 8.7 8.6 Cardiac Enzymes 08/31/24 08/31/24 08/31/24 Range/Units 12:12 15:05 17:50 Troponin I < 0.012 0.019 D < 0.012 D (0.000-0.034) ng/mL Liver Function 08/31/24 Range/Units 12:12 Total Bilirubin 0.3 (0.2-1.3) mg/dL AST 20 (14-36) U/L ALT 12 (6-35) U/L Alkaline Phosphatase 74 (38-126) U/L Albumin 3.3 L (3.5-5.1) g/dL Urine 08/31/24 Range/Units 12:12 Urine Color Yellow (Yellow) Urine Appearance Clear (Clear) Urine pH 7.0 (5.0-9.0) Ur Specific [place] 1.016 (1.001-1.035) Urine Protein Negative (Negative) mg/dL Urine Glucose (UA) Negative (Negative) mg/dL
[2024-09-01] MEDS: LORazepam (*CRX) 0.5 MG TABLET PO ×2 (12:08→16:42)
[2024-09-01] MEDS: ACETAMINOPHEN 325 MG TABLET 650 MG PO (12:29)
[2024-09-01] MEDS: polyethylene glycoL 3350 238 GM BOTTLE 119 GM PO (20:59)
[2024-09-01] MEDS: MELATONIN 3 MG TABLET PO (21:00)
[2024-09-01] MEDS: DONEPEZIL HCL 10 MG TABLET PO (21:00)
[2024-09-02] VITALS (12 sets, daily range): BP systolic 110–153; BP diastolic 46–80; PULSE 60–98; RESP 16–30; TEMP 36.2–36.6; O2SAT 95–100
[2024-09-02] MEDS: polyethylene glycoL 3350 238 GM BOTTLE 119 GM PO (05:02)
--- NOTE | 2024-09-02 06:52 | WPDGIPROGNO ---
Progress Note: A&P Assessment and Plan (1) Iron deficiency anemia: Code(s): D50.9 - Iron deficiency anemia, unspecified Status: Acute Assessment and Plan: the plan today is to do a colonoscopy and an EGD. Shay ulcers are suspected in a large hiatal hernia diagnosed 3 months ago. If her prep is not adequate, we will still proceed with the EGD. Subjective Date/time seen: 09/02/24 06:52 Interval history: The patient had the 1st dose of MiraLax last night, however she only had 1 bowel movement. Nursing staff is encouraging drinking of the 2nd half of the preparation after 5:00 a.m. today. She tends to refuse. Exam Narrative: No changes from baseline. Objective Data Vital Signs Vital Signs: Vital Signs - 24 hr 09/01/24 08:00 09/01/24 12:00 09/01/24 14:12 Temperature 97.8 F Pulse Rate 62 71 77 Respiratory Rate 18 Blood Pressure 127/49 L Pulse Oximetry 97 09/01/24 16:00 09/01/24 20:00 09/01/24 21:09 Temperature 97.7 F Pulse Rate 73 68 72 Respiratory Rate 20 Blood Pressure 128/54 L Pulse Oximetry 97 09/01/24 23:53 09/02/24 03:37 09/02/24 05:44 Temperature 97.1 F L Pulse Rate 68 60 67 Respiratory Rate 24 H Blood Pressure 140/55 L Pulse Oximetry 96 Intake/Output Intake/Output: Intake & Output 08/30/24 08/31/24 09/01/24 09/02/24 23:59 23:59 23:59 23:59 Intake Total 990 1090 500 Balance 990 1090 500 Meds/Results Medications: Active Medications Generic Name Dose Route Start Last Admin Trade Name Freq PRN Reason Stop Dose Admin Acetaminophen 650 mg 08/31/24 21:17 09/01/24 12:29 Acetaminophen 325 Mg Tablet PO 650 mg Q6H PRN Administration Mild Pain (1-3) or Fever Diltiazem HCl 120 mg 09/01/24 10:00 09/01/24 10:22 Diltiazem Hcl Cd 120 Mg Cap.24hr PO 120 mg DAILY ALEXIS Administration Donepezil HCl 10 mg 09/01/24 21:00 09/01/24 21:00 Donepezil Hcl 10 Mg Tablet PO 10 mg HS ALEXIS Administration Duloxetine HCl 60 mg 09/01/24 10:00 09/01/24 10:23 Duloxetine Hcl 60 Mg Capsule.Dr PO 60 mg DAILY ALEXIS Administration Ferrous Sulfate 325 mg 09/01/24 10:05 09/01/24 10:22 Ferrous Sulfate [address] PO 325 mg DAILY@0800 ALEXIS Administration Fluticasone Propionate 2 spray 09/01/24 10:05 09/01/24 10:20 Fluticasone Propionate 0.05% Na Spr 16 Gm Btl (*Bkc) NASAL 2 spray DAILY ALEXIS Administration Furosemide 40 mg 09/01/24 10:05 09/01/24 10:22 Furosemide 40 Mg Tablet PO 40 mg DAILY ALEXIS Administration Ceftriaxone Sodium 1 gm in 50 mls @ 100 mls/hr 09/01/24 09:00 09/01/24 08:37 Rocephin 1 Gm/Ns 50 Ml IVPB Infused Q24H ALEXIS Infusion Lamotrigine 100 mg 09/01/24 10:05 09/01/24 10:23 Lamotrigine 100 Mg Tablet PO 100 mg DAILY ALEXIS Administration Levetiracetam 250 mg 09/01/24 10:05 09/01/24 21:01 Levetiracetam 250 Mg Tablet PO 250 mg Q12HR ALEXIS Administration Lorazepam 0.5 mg 09/01/24 10:05 09/01/24 16:42 Lorazepam (*Crx) 0.5 Mg Tablet PO 0.5 mg TID ALEXIS Administration Magnesium Oxide 400 mg 09/01/24 10:00 09/01/24 10:22 Magnesium Oxide 400 Mg Tablet PO 10/02/24 09:59 400 mg DAILY ALEXIS Administration Melatonin 3 mg 09/01/24 21:00 09/01/24 21:00 Melatonin 3 Mg Tablet PO 3 mg HS ALEXIS Administration Mirabegron 25 mg 09/01/24 10:05 09/01/24 10:25 Mirabegron 25 Mg Er Tablet PO 25 mg DAILY ALEXIS Administration Multivitamins/Calcium 1 tablet 09/01/24 10:05 09/01/24 10:23 Therapeutic Multivitamins/Minerals Tab (*Bkc) PO 1 tablet DAILY ALEXIS Administration Pantoprazole Sodium 40 mg 09/01/24 21:00 Pantoprazole 40 Mg Tablet PO Q12H ALEXIS Polyethylene Glycol 17 gm 09/01/24 09:53 Polyethylene Glycol 3350 17 Gm Powd.Pack PO DAILY PRN Constipation Potassium Chloride 20 meq 09/01/24 10:00 09/01/24 16:43 Potassium Chloride 20 Meq Er Tablet PO 20 meq BID ALEXIS Administration Senna/Docusate Sodium 1 tab 09/01/24 10:05 09/01/24 10:23 Senna/Docusate Sodium Tablet PO 1 tab DAILY ALEXIS Administration Radiology Results: ITS Impressions Chest X-Ray 08/31/24 12:12 IMPRESSION: 1. Increased interstitial pattern in the bilateral lower lung zones most likely mild pulmonary edema with differential including atelectasis or pneumonia. Head CT 08/31/24 12:27 IMPRESSION: 1. No fracture or acute intracranial process. 2. 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 3. Age-related changes including mild to moderate diffuse volume loss and moderate scattered white matter hypoattenuation consistent with sequela of chronic small vessel ischemic disease.
[2024-09-02 08:59] LABS: Hemoglobin 9.9 g/dL (12.0-15.0); Mean Corpuscular HGB Conc 31.9 g/dl (32-36); Mean Corpuscular Hemoglobin 29.4 pg (26-34); Mean Platelet Volume 9.1 fl (7.4-10.4); Platelet Count Result 174 k/mm3 (150-375); Red Blood Count 3.37 M/mm3 (4.2-5.4); White Blood Count 4.1 K/mm3 (4.5-10.0)
[2024-09-02 09:14] LABS: Alanine Aminotransferase 17 U/L (6-35); Albumin Level 3.6 g/dL (3.5-5.1); Alkaline Phosphatase 84 U/L (38-126); Anion Gap 7 mmol/L (4-12); Aspartate Amino Transferase 31 U/L (14-36); Bilirubin,Total 0.7 mg/dL (0.2-1.3); Blood Urea Nitrogen 17 mg/dL (7-17); Calcium 8.8 mg/dL (8.4-10.2); Carbon Dioxide 24 mmol/L (22-30); Chloride 108 mmol/L (98-107); Estimated CRCL calculation 32 ml/min; Estimated Glomerular Filt Rate 57; Glucose 98 mg/dL (65-110); Potassium 4.4 mmol/L (3.4-5.0); Sodium 139 mmol/L (137-145)
[2024-09-02] MEDS: ACETAMINOPHEN 325 MG TABLET 650 MG PO (09:48)
[2024-09-02] MEDS: levETIRAcetam 250 MG TABLET PO (09:49)
[2024-09-02] MEDS: FLUTICASONE PROPIONATE 0.05% NA SPR 16 GM BTL (*BKC) 2 SPRAY NASAL (09:50)
[2024-09-02] MEDS: POTASSIUM CHLORIDE 20 MEQ ER TABLET PO ×2 (09:50→17:12)
--- NOTE | 2024-09-02 10:28 | P.PNIM_ITS ---
Progress Note: A&P Assessment and Plan (1) Profound anemia: Code(s): D64.9 - Anemia, unspecified Status: Acute Assessment and Plan: [facility] after unwitnessed fall was found to have a hemoglobin of 6.5 and was transfused 2 units PRBCs she had recent hospitalization with EGD 06/27/2024 which was showing gastritis and hiatal hernia. hemoccult stool was positive however patient does have history of iron deficiency anemia, but is currently on AC Eliquis 5 mg b.i.d. currently hemodynamically stable * GI consulted recommendations appreciated * continue PPI * Monitor hgb transfuse <7.0 * continued ferrous sulfate * continue to hold Eliquis resume her GI recommendations * NPO currently for possible EGD EGD today-09/02 (2) Occult GI bleeding: Code(s): R19.5 - Other fecal abnormalities Status: Acute Assessment and Plan: SEE ABOVE (3) Bacteriuria with pyuria: Code(s): R82.71 - Bacteriuria; R82.81 - Pyuria Status: Acute Assessment and Plan: Urinalysis was positive for 2+ leukocyte esterase, 51 to 100 WBC, and 4+ bacteria * continue Rocephin pending cultures (4) Dementia: Qualifiers: Alzheimer's disease onset: late onset Dementia behavioral or psychological symptom: with other behavioral disturbance Dementia severity: moderate Dementia type: Alzheimer's Qualified Code(s): G30.1 - Alzheimer's disease with late onset; F02.B18 - Dementia in other diseases classified elsewhere, moderate, with other behavioral disturbance Code(s): F03.90 - Unspecified dementia, unspecified severity, without behavioral disturbance, psychotic disturbance, mood disturbance, and anxiety Status: Acute Assessment and Plan: * continue patient's donepezil (5) Seizure disorder: Code(s): G40.909 - Epilepsy, unspecified, not intractable, without status epilepticus Status: Chronic Assessment and Plan: * continued patient's Keppra * seizure precautions if indicated will switch to IV for now (6) Essential hypertension: Code(s): I10 - Essential (primary) hypertension Status: Chronic Assessment and Plan: * continue diltiazem (7) Congestive heart failure: Qualifiers: Heart failure chronicity: chronic Heart failure type: unspecified Qualified Code(s): I50.9 - Heart failure, unspecified Code(s): I50.9 - Heart failure, unspecified Status: Acute Assessment and Plan: * does not appear in exacerbation * will continue her 40 of Lasix daily * monitor for fluid overload need IV Lasix between units of blood (8) Paroxysmal atrial fibrillation: Code(s): I48.0 - Paroxysmal atrial fibrillation Status: Chronic Assessment and Plan: * continued her diltiazem currently holding Eliquis for possible GI bleed (9) Chronic anticoagulation: Code(s): Z79.01 - intermediate manager (current) use of anticoagulants Status: Acute Assessment and Plan: * Eliquis on hold for GI bleed will resume per GI recommendations (10) Psychiatric illness: Code(s): F99 - Mental disorder, not otherwise specified Status: Acute Assessment and Plan: * continue duloxetine and Lamictal Plan Code status: DNR DVT prophylaxis: SCD's Stress ulcer prophylaxis: Protonix 40 daily PT/OT notes: Disposition: Patient continues admission to the medical unit for further evaluation and treatment of possible GI bleed and urinary tract infection GI consulted for further recommendations and possible EGD will continue to hold patient's Eliquis at this time refer to GI recommendation for resuming. Of note- some reports of coughing with meals- will order speech for eval. Time Spent With Patient Time with patient: 25 - 35 minutes Subjective Date/time seen: 09/02/24 10:28 Interval history: Pt is an 83-year-old female who was [facility] from jail facility after an unwitnessed fall she was found have hemoglobin of 6.5 and occult stool was positive she was transfused 2 units PRBCs and started on pantoprazole with consult to GI with plans for EGD for direct visualization. her urine was suspicious for UTI is currently receiving IV abx treatment 09/01/2024: Patient pleasantly confused reports she just feels unwell and weak. Patient al ert and oriented x1 which is her baseline. HGB stable after 2 units PRBCs. 09/02: Assuming care. Pt is seen and examined. EGD scheduled for today. Review of Systems Review of Systems: pleasantly confused HX of dementia and CVA Alert x 1 All systems reviewed & are unremarkable except as noted in HPI and below ROS unobtainable: Yes unobtainable due to mental status Exam Narrative: General: Chronically ill-appearing female NAD Respiratory:?Clear on auscultation, chronic dry cough Cardiovascular:? RRR Gastrointestinal:? Abdomen is soft and nondistended with positive bowel sounds. region. No guarding or rebound tenderness. Skin:? Deep tissue bruising Extremities:? No edema Neurologic:? Alert x1 at baseline Psychiatric: Pleasantly confused and cooperative. Objective Data Vital Signs Vital Signs: Vital Signs - 24 hr 09/01/24 12:00 09/01/24 14:12 09/01/24 16:00 Temperature 97.8 F Pulse Rate 71 77 73 Respiratory Rate 18 Blood Pressure 127/49 L Pulse Oximetry 97 09/01/24 20:00 09/01/24 21:09 09/01/24 23:53 Temperature 97.7 F Pulse Rate 68 72 68 Respiratory Rate 20 Blood Pressure 128/54 L Pulse Oximetry 97 09/02/24 03:37 09/02/24 05:44 Temperature 97.1 F L Pulse Rate 60 67 Respiratory Rate 24 H Blood Pressure 140/55 L Pulse Oximetry 96 Intake/Output Intake/Output: Intake & Output 08/30/24 08/31/24 09/01/24 09/02/24 23:59 23:59 23:59 23:59 Intake Total 990 1090 500 Balance 990 1090 500 Meds/Results Medications: Active Medications Generic Name Dose Route Start Last Admin Trade Name Freq PRN Reason Stop Dose Admin Acetaminophen 650 mg 08/31/24 21:17 09/02/24 09:48 Acetaminophen 325 Mg Tablet PO 650 mg Q6H PRN Administration Mild Pain (1-3) or Fever Cephalexin HCl 500 mg 09/03/24 09:00 Cephalexin 500 Mg Capsule PO 09/06/24 21:01 Q12HR ALEXIS Diltiazem HCl 120 mg 09/01/24 10:00 09/02/24 09:49 Diltiazem Hcl Cd 120 Mg Cap.24hr PO 120 mg DAILY ALEXIS Administration Donepezil HCl 10 mg 09/01/24 21:00 09/01/24 21:00 Donepezil Hcl 10 Mg Tablet PO 10 mg HS ALEXIS Administration Duloxetine HCl 60 mg 09/01/24 10:00 09/02/24 09:50 Duloxetine Hcl 60 Mg Capsule.Dr PO 60 mg DAILY ALEXIS Administration Ferrous Sulfate 325 mg 09/01/24 10:05 09/02/24 09:49 Ferrous Sulfate [address] PO 325 mg DAILY@0800 ALEXIS Administration Fluticasone Propionate 2 spray 09/01/24 10:05 09/02/24 09:50 Fluticasone Propionate 0.05% Na Spr 16 Gm Btl (*Bkc) NASAL 2 spray DAILY ALEXIS Administration Furosemide 40 mg 09/01/24 10:05 09/02/24 09:50 Furosemide 40 Mg Tablet PO 40 mg DAILY ALEXIS Administration Lamotrigine 100 mg 09/01/24 10:05 09/02/24 09:50 Lamotrigine 100 Mg Tablet PO 100 mg DAILY ALEXIS Administration Levetiracetam 250 mg 09/01/24 10:05 09/02/24 09:49 Levetiracetam 250 Mg Tablet PO 250 mg Q12HR ALEXIS Administration Lorazepam 0.5 mg 09/01/24 10:05 09/02/24 09:50 Lorazepam (*Crx) 0.5 Mg Tablet PO 0.5 mg TID ALEXIS Administration Magnesium Oxide 400 mg 09/01/24 10:00 09/02/24 09:50 Magnesium Oxide 400 Mg Tablet PO 10/02/24 09:59 400 mg DAILY ALEXIS Administration Melatonin 3 mg 09/01/24 21:00 09/01/24 21:00 Melatonin 3 Mg Tablet PO 3 mg HS ALEXIS Administration Mirabegron 25 mg 09/01/24 10:05 09/02/24 09:53 Mirabegron 25 Mg Er Tablet PO 25 mg DAILY ALEXIS Administration Multivitamins/Calcium 1 tablet 09/01/24 10:05 09/02/24 09:50 Therapeutic Multivitamins/Minerals Tab (*Bkc) PO 1 tablet DAILY ALEXIS Administration Pantoprazole Sodium 40 mg 09/01/24 21:00 Pantoprazole 40 Mg Tablet PO Q12H ALEXIS Polyethylene Glycol 17 gm 09/01/24 09:53 Polyethylene Glycol 3350 17 Gm Powd.Pack PO DAILY PRN Constipation Potassium Chloride 20 meq 09/01/24 10:00 09/02/24 09:50 Potassium Chloride 20 Meq Er Tablet PO 20 meq BID ALEXIS Administration Senna/Docusate Sodium 1 tab 09/01/24 10:05 09/02/24 09:49 Senna/Docusate Sodium Tablet PO 1 tab DAILY ALEXIS Administration Radiology Results: ITS Impressions Chest X-Ray 08/31/24 12:12 IMPRESSION: 1. Increased interstitial pattern in the bilateral lower lung zones most likely mild pulmonary edema with differential including atelectasis or pneumonia. Head CT 08/31/24 12:27 IMPRESSION: 1. No fracture or acute intracranial process. 2. 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 3. Age-related changes including mild to moderate diffuse volume loss and moderate scattered white matter hypoattenuation consistent with sequela of chronic small vessel ischemic disease. Labs Labs: Laboratory Results - last 24 hr 09/02/24 08:50 WBC 4.1 L RBC 3.37 L Hgb 9.9 L Hct 31.0 L MCV 92.0 MCH 29.4 MCHC 31.9 L RDW 15.0 H Plt Count 174 MPV 9.1 Sodium 139 Potassium 4.4 Chloride 108 H Carbon Dioxide 24 Anion Gap 7 BUN 17 D Creatinine 0.94 Estim Creat Clear Calc 32 Estimated GFR 57 L Glucose 98 Calcium 8.8 Total Bilirubin 0.7 AST 31 ALT 17 Alkaline Phosphatase 84 Total Protein 6.0 L Albumin 3.6 Quality VTE Prophylaxis VTE prophylaxis: mechanical ordered
[2024-09-02] MEDS: SENNA/DOCUSATE SODIUM TABLET 1 TAB PO (11:30)
[2024-09-02] MEDS: dilTIAZem HCL CD 120 MG CAP.24HR PO (11:30)
[2024-09-02] MEDS: MIRABEGRON 25 MG ER TABLET PO (11:30)
[2024-09-02] MEDS: FUROSEMIDE 40 MG TABLET PO (11:30)
[2024-09-02] MEDS: lamoTRIgine 100 MG TABLET PO (11:30)
[2024-09-02] MEDS: MAGNESIUM OXIDE 400 MG TABLET PO (11:30)
[2024-09-02] MEDS: LORazepam (*CRX) 0.5 MG TABLET PO ×2 (11:30→17:12)
[2024-09-02] MEDS: FERROUS SULFATE 325 MG TABLET DR PO (11:30)
[2024-09-02] MEDS: DULoxetine HCL 60 MG CAPSULE.DR PO (11:30)
[2024-09-02] MEDS: LACTATED RINGERS 1,000 ML 150 ML IV CONT (14:06)
--- NOTE | 2024-09-02 14:08 | WPDANESEPPF ---
Anes - Initial Pre Proc Eval Procedure: Operation Date: 09/02/24 16:00 Proposed Procedures p Esophagogastroduodenoscopy EGD - Jose Roberto Coker MD Date/Time: 09/02/24 14:08 Surgeon: Wyatt Laguna MD Pre Op Diagnosis: Anemia, UTI, upper GI bleed Patient Data Age: 83 Gender: F Height: 1.6 m Weight: 65.6 kg Last Vital Signs Temp 97.8 F 09/02/24 13:47 Pulse 63 09/02/24 13:47 Resp 16 09/02/24 13:47 BP 153/66 H 09/02/24 13:47 Pulse Ox 96 09/02/24 13:47 O2 Del Method Room Air 09/02/24 13:47 Allergies Allergy/AdvReac Type Severity Reaction Status Date / Time sertraline Allergy Severe Unknown Verified 08/31/24 16:56 hydromorphone Allergy Intermediate Unknown Verified 08/31/24 16:56 Home Medications ?Medication ?Instructions ?Recorded ?Confirmed ?Type cholecalciferol (vitamin D3) 1,250 50,000 unit PO WEEKLY 03/20/19 08/31/24 History mcg (50,000 unit) tablet cyanocobalamin (vitamin B-12) 1,000 mcg PO DAILY 03/20/19 08/31/24 History 1,000 mcg capsule donepezil 10 mg tablet 10 mg PO HS 03/20/19 08/31/24 History polyethylene glycol 3350 17 17 g PO DAILY PRN Constipation 03/20/19 08/31/24 History gram/dose oral powder (Miralax) duloxetine 60 mg capsule,delayed 60 mg PO DAILY 07/16/21 08/31/24 History release lamotrigine 100 mg tablet 100 mg PO DAILY 07/16/21 08/31/24 History levetiracetam 250 mg tablet 250 mg PO BID 07/16/21 08/31/24 History (Keppra) melatonin 3 mg tablet 3 mg PO HS 07/16/21 08/31/24 History cranberry fruit 450 mg tablet 450 mg PO DAILY 04/05/22 08/31/24 History (cranberry) fluticasone propionate 50 2 spray intranasal DAILY 04/05/22 08/31/24 History mcg/actuation nasal spray,suspension (Allergy Relief (fluticasone)) mirabegron 25 mg tablet,extended 25 mg PO DAILY 04/05/22 08/31/24 History release 24 hr (Myrbetriq) Marisol-Tussin 5 ml PO Q6H PRN Congestion 09/13/22 08/31/24 History acetaminophen 325 mg tablet 650 mg PO Q4H PRN Pain (Scale 09/13/22 08/31/24 History Score 1-3) lorazepam 0.5 mg tablet 0.5 mg PO TID 09/13/22 08/31/24 History magnesium oxide 1 tablet PO DAILY 09/13/22 08/31/24 History potassium chloride 20 mEq 20 meq PO BID 09/13/22 08/31/24 History tablet,extended release(part/cryst) (Klor-Con M) ferrous sulfate 325 mg (65 mg 325 mg PO DAILY 30 days #30 tabs 09/17/22 08/31/24 Rx iron) tablet,delayed release sennosides 8.6 mg-docusate sodium 1 tab-cap PO DAILY 06/06/23 08/31/24 History 50 mg tablet (Senna Plus) apixaban 5 mg tablet (Eliquis) 5 mg PO Q12HR #60 tabs 06/13/23 08/31/24 Rx diltiazem HCl 120 mg 120 mg PO DAILY #30 caps 06/13/23 08/31/24 Rx capsule,extended release 24 hr furosemide 40 mg tablet 40 mg PO DAILY #30 tabs 06/13/23 08/31/24 Rx cetirizine 10 mg tablet (24Hour 10 mg PO DAILY 05/21/24 08/31/24 History Allergy) multivitamin with iron-mineral 1 tablet PO DAILY 08/31/24 08/31/24 History pantoprazole 40 mg tablet,delayed 40 mg PO Q12H 08/31/24 08/31/24 History release Laboratory Tests 09/02/24 08:50 WBC 4.1 L K/mm3 (4.5-10.0) RBC 3.37 L M/mm3 (4.2-5.4) Hgb 9.9 L g/dL (12.0-15.0) Hct 31.0 L % (37.0-47.0) MCV 92.0 fl (80-100) MCH 29.4 pg (26-34) MCHC 31.9 L g/dl (32-36) RDW 15.0 H % (11.5-14.5) Plt Count 174 k/mm3 (150-375) MPV 9.1 fl (7.4-10.4) Sodium 139 mmol/L (137-145) Potassium 4.4 mmol/L (3.4-5.0) Chloride 108 H mmol/L (98-107) Carbon Dioxide 24 mmol/L (22-30) Anion Gap 7 mmol/L (4-12) BUN 17 D mg/dL (7-17) Creatinine 0.94 mg/dL (0.7-1.0) Estim Creat Clear Calc 32 ml/min Estimated GFR 57 L (59 - ) Glucose 98 mg/dL (65-110) Calcium 8.8 mg/dL (8.4-10.2) Total Bilirubin 0.7 mg/dL (0.2-1.3) AST 31 U/L (14-36) ALT 17 U/L (6-35) Alkaline Phosphatase 84 U/L (38-126) Total Protein 6.0 L g/dL (6.3-8.2) Albumin 3.6 g/dL (3.5-5.1) Patient hx anesthesia problems: none Family hx anesthesia problems: none Results Review: All pre-operative results and documents have been reviewed as part of the pre-operative evaluation. 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, 2019 Thoracic compression fracture T10 Essential hypertension Osteoporosis Frequent urinary tract infections history of ESBL E coli infection March 2018 Seizure disorder Schizoaffective disorder Hyperlipidemia Depression Dementia Paroxysmal atrial fibrillation Surgical History Surgical History History of arthroscopy of left shoulder History of total left hip arthroplasty (2015) History of bladder suspension procedure History of hysterectomy Family History Family History Sibling Dementia Cerebrovascular accident Sibling Acute myocardial infarction Mother Cirrhosis Father Emphysema of lung Social History Social History Social History: Surrogate medical decision maker: Cameron Naranjo. Code status: Do not resuscitate. Smoking packs per day: 1 Smoking cigarettes per day: 20.0 Years smoked: 10 Smoking pack-years: 10.00 Smoking status: Unknown if ever smoked Second hand tobacco smoke exposure: No Alcohol intake: unknown Substance use: never Substance use type: does not use Do You Feel Safe in your Home?: Yes Lack of Transportation: No Lack of Food: Never True Current Housing: I Have Housing Concerned About Future Housing: No Difficulty Paying Gas/Electric Bills: No Difficulty Paying for Meds: No Currently Unemployed: No Education: High School Diploma/GED Difficulty w/ Childcare or Family Care: No Additional living arrangements comments: . Resident at [facility]. 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: No Agree to blood products: Yes Anes - Eval Final PreProcedure Day of Procedure 09/02/24 14:08 Patient weight: overweight Lungs: normal air movement Airway: Mallampati scale class II Neurological: alert and oriented Last oral intake: >/= 8 hours ASA classification: IV Emergent: no Anesthetic plan: proceed Anesthesia type and monitoring: general GIVS and standard monitoring Results Review: All pre-operative results and documents have been reviewed as part of the pre-operative evaluation. Complicated pt w many comorbid condtions, Hgb 9.1 today w BMP reviewed. Hx of p a fib, on AC, now w anemia s/p transfusion 2 U PRBCs. ECHO 06/01 w nml LVEF, mild pulmon HTN. Informed Consent: The patient's anesthetic plan and its attendant risks and benefits were discussed with the patient/family/POA. Questions were solicited and answers provided to the satisfaction of the patient/family/POA.
--- NOTE | 2024-09-02 15:06 | SUR.PHASEII ---
Pt c/o SOB. No signs of distress. Pt calmed and given ice chips. Spo2 100%. Dr. Ordonez to bedside. Ok to take to floor.
--- NOTE | 2024-09-02 15:31 | SUR.PHASEII ---
Red/pink wound to left buttock. Pt taken to floor, cleaned, and placed comfortably on side.
--- NOTE | 2024-09-02 15:42 | WPDGIPROGNO ---
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 While further AVMs could be present in the distal small intestine, a colonoscopy could not be completed due to insufficient bowel prep. Our recommendations include: 1) Initiating iron infusions now and to be completed over the next two weeks, and 2) Scheduling an outpatient colonoscopy. If the colonoscopy does not identify a source of bleeding, a capsule endoscopy is indicated to evaluate the remainder of the small bowel for additional AVMs. Subjective Date/time seen: 09/02/24 15:42 Objective Data Vital Signs Vital Signs: Vital Signs - 24 hr 09/01/24 16:00 09/01/24 20:00 09/01/24 21:09 Temperature 97.7 F Pulse Rate 73 68 72 Respiratory Rate 20 Blood Pressure 128/54 L Pulse Oximetry 97 Oxygen Delivery 09/01/24 23:53 09/02/24 03:37 09/02/24 05:44 Temperature 97.1 F L Pulse Rate 68 60 67 Respiratory Rate 24 H Blood Pressure 140/55 L Pulse Oximetry 96 Oxygen Delivery 09/02/24 08:00 09/02/24 08:00 09/02/24 13:47 Temperature 97.8 F Pulse Rate 72 63 Respiratory Rate 16 Blood Pressure 153/66 H Pulse Oximetry 96 Oxygen Delivery Room Air Room Air 09/02/24 14:35 09/02/24 14:45 09/02/24 14:55 Temperature Pulse Rate 86 93 90 Respiratory Rate 30 H 30 H 21 H Blood Pressure 129/80 110/73 127/68 Pulse Oximetry 100 100 97 Oxygen Delivery Room Air Room Air Room Air 09/02/24 15:05 Temperature Pulse Rate Respiratory Rate Blood Pressure Pulse Oximetry 100 Oxygen Delivery Intake/Output Intake/Output: Intake & Output 08/30/24 08/31/24 09/01/24 09/02/24 23:59 23:59 23:59 23:59 Intake Total 990 1090 500 Balance 990 1090 500 Meds/Results Medications: Active Medications Generic Name Dose Route Start Last Admin Trade Name Freq PRN Reason Stop Dose Admin Acetaminophen 650 mg 08/31/24 21:17 09/02/24 09:48 Acetaminophen 325 Mg Tablet PO 650 mg Q6H PRN Administration Mild Pain (1-3) or Fever Cephalexin HCl 500 mg 09/03/24 09:00 Cephalexin 500 Mg Capsule PO 09/06/24 21:01 Q12HR ALEXIS Diltiazem HCl 120 mg 09/01/24 10:00 09/02/24 11:30 Diltiazem Hcl Cd 120 Mg Cap.24hr PO 120 mg DAILY ALEXIS Administration Donepezil HCl 10 mg 09/01/24 21:00 09/01/24 21:00 Donepezil Hcl 10 Mg Tablet PO 10 mg HS ALEXIS Administration Duloxetine HCl 60 mg 09/01/24 10:00 09/02/24 11:30 Duloxetine Hcl 60 Mg Capsule.Dr PO 60 mg DAILY ALEXIS Administration Ferrous Sulfate 325 mg 09/01/24 10:05 09/02/24 11:30 Ferrous Sulfate [address] PO 325 mg DAILY@0800 ALEXIS Administration Fluticasone Propionate 2 spray 09/01/24 10:05 09/02/24 09:50 Fluticasone Propionate 0.05% Na Spr 16 Gm Btl (*Bkc) NASAL 2 spray DAILY ALEXIS Administration Furosemide 40 mg 09/01/24 10:05 09/02/24 11:30 Furosemide 40 Mg Tablet PO 40 mg DAILY ALEXIS Administration Levetiracetam 250 mg/ Dextrose 102.5 mls @ 430 mls/hr 09/02/24 21:00 IVPB Q12HR ALEXIS Lamotrigine 100 mg 09/01/24 10:05 09/02/24 11:30 Lamotrigine 100 Mg Tablet PO 100 mg DAILY ALEXIS Administration Levetiracetam 250 mg 09/01/24 10:05 09/02/24 09:49 Levetiracetam 250 Mg Tablet PO 250 mg Q12HR ALEXIS Administration Lorazepam 0.5 mg 09/01/24 10:05 09/02/24 11:30 Lorazepam (*Crx) 0.5 Mg Tablet PO 0.5 mg TID ALEXIS Administration Magnesium Oxide 400 mg 09/01/24 10:00 09/02/24 11:30 Magnesium Oxide 400 Mg Tablet PO 10/02/24 09:59 400 mg DAILY ALEXIS Administration Melatonin 3 mg 09/01/24 21:00 09/01/24 21:00 Melatonin 3 Mg Tablet PO 3 mg HS ALEXIS Administration Mirabegron 25 mg 09/01/24 10:05 09/02/24 11:30 Mirabegron 25 Mg Er Tablet PO 25 mg DAILY ALEXSI Administration Multivitamins/Calcium 1 tablet 09/01/24 10:05 09/02/24 11:47 Therapeutic Multivitamins/Minerals Tab (*Bkc) PO Not Given DAILY ALEXIS Pantoprazole Sodium 40 mg 09/01/24 21:00 Pantoprazole 40 Mg Tablet PO Q12H ALEXIS Polyethylene Glycol 17 gm 09/01/24 09:53 Polyethylene Glycol 3350 17 Gm Powd.Pack PO DAILY PRN Constipation Potassium Chloride 20 meq 09/01/24 10:00 09/02/24 09:50 Potassium Chloride 20 Meq Er Tablet PO 20 meq BID ALEXIS Administration Senna/Docusate Sodium 1 tab 09/01/24 10:05 09/02/24 11:30 Senna/Docusate Sodium Tablet PO 1 tab DAILY ALEXIS Administration Radiology Results: ITS Impressions Chest X-Ray 08/31/24 12:12 IMPRESSION: 1. Increased interstitial pattern in the bilateral lower lung zones most likely mild pulmonary edema with differential including atelectasis or pneumonia. Head CT 08/31/24 12:27 IMPRESSION: 1. No fracture or acute intracranial process. 2. 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 3. Age-related changes including mild to moderate diffuse volume loss and moderate scattered white matter hypoattenuation consistent with sequela of chronic small vessel ischemic disease. Labs Labs: Laboratory Results - last 24 hr 09/02/24 08:50 WBC 4.1 L RBC 3.37 L Hgb 9.9 L Hct 31.0 L MCV 92.0 MCH 29.4 MCHC 31.9 L RDW 15.0 H Plt Count 174 MPV 9.1 Sodium 139 Potassium 4.4 Chloride 108 H Carbon Dioxide 24 Anion Gap 7 BUN 17 D Creatinine 0.94 Estim Creat Clear Calc 32 Estimated GFR 57 L Glucose 98 Calcium 8.8 Total Bilirubin 0.7 AST 31 ALT 17 Alkaline Phosphatase 84 Total Protein 6.0 L Albumin 3.6
[2024-09-02] MEDS: IRON SUCROSE COMPLEX 400 MG in SODIUM CHLORIDE 0.9% IV 250 ML 108 MG IVPB (17:07)
[2024-09-02] MEDS: levETIRAcetam IV 250 MG in DEXTROSE 5% 100 ML 430 MG IVPB (21:06)
[2024-09-02] MEDS: DONEPEZIL HCL 10 MG TABLET PO (21:07)
[2024-09-02] MEDS: MELATONIN 3 MG TABLET PO (21:07)
[2024-09-02] MEDS: PANTOPRAZOLE 40 MG TABLET PO (21:07)
[2024-09-03 05:56] VITALS: BP 117/49; PULSE 68; RESP 24; TEMP 36.2; O2SAT 93
[2024-09-03 06:37] LABS: Hematocrit 31.4 % (37.0-47.0); Hemoglobin 9.8 g/dL (12.0-15.0); Mean Corpuscular HGB Conc 31.2 g/dl (32-36); Mean Corpuscular Hemoglobin 29.5 pg (26-34); Mean Corpuscular Volume 94.6 fl (80-100); Mean Platelet Volume 9.5 fl (7.4-10.4); Platelet Count Result 189 k/mm3 (150-375); Red Blood Count 3.32 M/mm3 (4.2-5.4); Red Cell Distribution Width 14.6 % (11.5-14.5); White Blood Count 5.2 K/mm3 (4.5-10.0)
[2024-09-03 06:49] LABS: Alanine Aminotransferase 18 U/L (6-35); Albumin Level 3.5 g/dL (3.5-5.1); Alkaline Phosphatase 93 U/L (38-126); Anion Gap 6 mmol/L (4-12); Aspartate Amino Transferase 29 U/L (14-36); Bilirubin,Total 0.8 mg/dL (0.2-1.3); Blood Urea Nitrogen 15 mg/dL (7-17); Calcium 8.8 mg/dL (8.4-10.2); Carbon Dioxide 25 mmol/L (22-30); Chloride 106 mmol/L (98-107); Estimated CRCL calculation 29 ml/min; Estimated Glomerular Filt Rate 50; Glucose 98 mg/dL (65-110); Potassium 4.4 mmol/L (3.4-5.0); Sodium 137 mmol/L (137-145)
[2024-09-03] MEDS: levETIRAcetam IV 250 MG in DEXTROSE 5% 100 ML 430 MG IVPB ×2 (08:48→22:09)
[2024-09-03] MEDS: FLUTICASONE PROPIONATE 0.05% NA SPR 16 GM BTL (*BKC) 2 SPRAY NASAL (08:50)
[2024-09-03] MEDS: dilTIAZem HCL CD 120 MG CAP.24HR PO (09:03)
[2024-09-03] MEDS: POTASSIUM CHLORIDE 20 MEQ ER TABLET PO ×2 (09:03→18:07)
[2024-09-03] MEDS: THERAPEUTIC MULTIVITAMINS/MINERALS TAB (*BKC) 1 TABLET PO (09:03)
[2024-09-03] MEDS: FERROUS SULFATE 325 MG TABLET DR PO (09:03)
[2024-09-03] MEDS: MIRABEGRON 25 MG ER TABLET PO (09:03)
[2024-09-03] MEDS: FUROSEMIDE 40 MG TABLET PO (09:04)
[2024-09-03] MEDS: LORazepam (*CRX) 0.5 MG TABLET PO ×3 (09:04→18:07)
[2024-09-03] MEDS: SENNA/DOCUSATE SODIUM TABLET 1 TAB PO (09:04)
[2024-09-03] MEDS: DULoxetine HCL 60 MG CAPSULE.DR PO (09:04)
[2024-09-03] MEDS: PANTOPRAZOLE 40 MG TABLET PO ×2 (09:04→22:10)
[2024-09-03] MEDS: lamoTRIgine 100 MG TABLET PO (09:04)
[2024-09-03] MEDS: CEPHALEXIN 500 MG CAPSULE PO ×2 (09:04→22:10)
[2024-09-03] MEDS: MAGNESIUM OXIDE 400 MG TABLET PO (09:04)
[2024-09-03 14:00] VITALS: BP 110/60; PULSE 64; RESP 20; TEMP 36.4; O2SAT 100
--- NOTE | 2024-09-03 15:07 | P.PNIM_ITS ---
Progress Note: A&P Assessment and Plan (1) Profound anemia: Code(s): D64.9 - Anemia, unspecified Status: Acute Assessment and Plan: Patient sent from senior living facility after unwitnessed fall was found to have a hemoglobin of 6.5 and was transfused 2 units PRBCs she had recent hospitalization with EGD 06/27/2024 which was showing gastritis and hiatal hernia. hemoccult stool was positive however patient does have history of iron deficiency anemia, but is currently on AC Eliquis 5 mg b.i.d. 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 While further AVMs could be present in the distal small intestine, a colonoscopy could not be completed due to insufficient bowel prep. Our recommendations include: 1) Initiating iron infusions now and to be completed over the next two weeks, and 2) Scheduling an outpatient colonoscopy. If the colonoscopy does not identify a source of bleeding, a capsule endoscopy is indicated to evaluate the remainder of the small bowel for additional AVMs. (2) Occult GI bleeding: Code(s): R19.5 - Other fecal abnormalities Status: Acute Assessment and Plan: SEE ABOVE (3) Bacteriuria with pyuria: Code(s): R82.71 - Bacteriuria; R82.81 - Pyuria Status: Acute Assessment and Plan: Urinalysis was positive for 2+ leukocyte esterase, 51 to 100 WBC, and 4+ bacteria * continue Rocephin pending cultures downgraded to keflex 500 mg q12h -8 total doses- last dose 09/06 2099 (4) Dementia: Qualifiers: Alzheimer's disease onset: late onset Dementia behavioral or psychological symptom: with other behavioral disturbance Dementia severity: moderate Dementia type: Alzheimer's Qualified Code(s): G30.1 - Alzheimer's disease with late onset; F02.B18 - Dementia in other diseases classified elsewhere, moderate, with other behavioral disturbance Code(s): F03.90 - Unspecified dementia, unspecified severity, without behavioral disturbance, psychotic disturbance, mood disturbance, and anxiety Status: Acute Assessment and Plan: * continue patient's donepezil (5) Seizure disorder: Code(s): G40.909 - Epilepsy, unspecified, not intractable, without status epilepticus Status: Chronic Assessment and Plan: * continued patient's Keppra * seizure precautions if indicated will switch to IV for now (6) Essential hypertension: Code(s): I10 - Essential (primary) hypertension Status: Chronic Assessment and Plan: * continue diltiazem (7) Congestive heart failure: Qualifiers: Heart failure chronicity: chronic Heart failure type: unspecified Qualified Code(s): I50.9 - Heart failure, unspecified Code(s): I50.9 - Heart failure, unspecified Status: Acute Assessment and Plan: * does not appear in exacerbation * will continue her 40 of Lasix daily * monitor for fluid overload need IV Lasix between units of blood (8) Paroxysmal atrial fibrillation: Code(s): I48.0 - Paroxysmal atrial fibrillation Status: Chronic Assessment and Plan: * continued her diltiazem currently holding Eliquis for possible GI bleed (9) Chronic anticoagulation: Code(s): Z79.01 - custodial (current) use of anticoagulants Status: Acute Assessment and Plan: * Eliquis on hold for GI bleed will resume per GI recommendations (10) Psychiatric illness: Code(s): F99 - Mental disorder, not otherwise specified Status: Acute Assessment and Plan: * continue duloxetine and Lamictal Plan Code status: DNR DVT prophylaxis: SCD's Stress ulcer prophylaxis: Protonix 40 daily PT/OT notes: Disposition: Patient continues admission to the medical unit for further evaluation and treatment of possible GI bleed and urinary tract infection GI consulted for further recommendations and possible EGD will continue to hold patient's Eliquis at this time refer to GI recommendation for resuming. anticipate discharge if stable in [facility] next day ro two with a clsoe f/u with GI and pcp Time Spent With Patient Time with patient: 25 - 35 minutes Subjective Date/time seen: 09/03/24 15:07 Interval history: Pt is an 83-year-old female who was admitted from senior living facility after an unwitnessed fall she was found have hemoglobin of 6.5 and occult stool was positive she was transfused 2 units PRBCs and started on pantoprazole with consult to GI with plans for EGD for direct visualization. her urine was suspicious for UTI is currently receiving IV abx treatment 09/01/2024: Patient pleasantly confused reports she just feels unwell and weak. Patient alert and oriented x1 which is her baseline. HGB stable after 2 units PRBCs. 09/02: Assuming care. Pt is seen and examined. EGD scheduled for today. 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 GI recommendations include: 1) Initiating iron infusions now and to be completed over the next two weeks, and 2) Scheduling an outpatient colonoscopy. If the colonoscopy does not identify a source of bleeding, a capsule endoscopy is indicated to evaluate the remainder of the small bowel for additional AVMs. Pt is doing well- still having diarrhea. but no n/v. Keflex for UTI. Anticipate discharge in the next few days if stable. Review of Systems Review of Systems: pleasantly confused HX of dementia All systems reviewed & are unremarkable except as noted in HPI and below ROS unobtainable: Yes unobtainable due to mental status Exam Narrative: General: Chronically ill-appearing female NAD Respiratory:?Clear on auscultation, chronic dry cough Cardiovascular:? RRR Gastrointestinal:? Abdomen is soft and nondistended with positive bowel sounds. region. No guarding or rebound tenderness. Skin:? Deep tissue bruising Extremities:? No edema Neurologic:? Alert x1 at baseline Psychiatric: Pleasantly confused and cooperative. Objective Data Vital Signs Vital Signs: Vital Signs - 24 hr 09/02/24 16:00 09/02/24 22:00 09/03/24 05:56 Temperature 97.5 F L 97.1 F L Pulse Rate 63 63 68 Respiratory Rate 16 24 H Blood Pressure 136/46 L 117/49 L Pulse Oximetry 95 93 09/03/24 14:00 Temperature 97.5 F L Pulse Rate 64 Respiratory Rate 20 Blood Pressure 110/60 Pulse Oximetry 100 Intake/Output Intake/Output: Intake & Output 08/31/24 09/01/24 09/02/24 09/03/24 23:59 23:59 23:59 23:59 Intake Total 990 1090 920 582.5 Balance 990 1090 920 582.5 Meds/Results Medications: Active Medications Generic Name Dose Route Start Last Admin Trade Name Freq PRN Reason Stop Dose Admin Acetaminophen 650 mg 08/31/24 21:17 09/02/24 09:48 Acetaminophen 325 Mg Tablet PO 650 mg Q6H PRN Administration Mild Pain (1-3) or Fever Cephalexin HCl 500 mg 09/03/24 09:00 09/03/24 09:04 Cephalexin 500 Mg Capsule PO 09/06/24 21:01 500 mg Q12HR ALEXIS Administration Diltiazem HCl 120 mg 09/01/24 10:00 09/03/24 09:03 Diltiazem Hcl Cd 120 Mg Cap.24hr PO 120 mg DAILY ALEXIS Administration Donepezil HCl 10 mg 09/01/24 21:00 09/02/24 21:07 Donepezil Hcl 10 Mg Tablet PO 10 mg HS ALEXIS Administration Duloxetine HCl 60 mg 09/01/24 10:00 09/03/24 09:04 Duloxetine Hcl 60 Mg Capsule.Dr PO 60 mg DAILY ALEXIS Administration Ferrous Sulfate 325 mg 09/01/24 10:05 09/03/24 09:03 Ferrous Sulfate [address] PO 325 mg DAILY@0800 ALEXIS Administration Fluticasone Propionate 2 spray 09/01/24 10:05 09/03/24 08:50 Fluticasone Propionate 0.05% Na Spr 16 Gm Btl (*Bkc) NASAL 2 spray DAILY ALEXIS Administration Furosemide 40 mg 09/01/24 10:05 09/03/24 09:04 Furosemide 40 Mg Tablet PO 40 mg DAILY ALEXIS Administration Levetiracetam 250 mg/ Dextrose 102.5 mls @ 430 mls/hr 09/02/24 21:00 09/03/24 08:48 IVPB 430 mls/hr Q12HR ALEXIS Administration Lamotrigine 100 mg 09/01/24 10:05 09/03/24 09:04 Lamotrigine 100 Mg Tablet PO 100 mg DAILY ALEXIS Administration Levetiracetam 250 mg 09/01/24 10:05 09/02/24 09:49 Levetiracetam 250 Mg Tablet PO 250 mg Q12HR ALEXIS Administration Lorazepam 0.5 mg 09/01/24 10:05 09/03/24 14:52 Lorazepam (*Crx) 0.5 Mg Tablet PO 0.5 mg TID ALEXIS Administration Magnesium Oxide 400 mg 09/01/24 10:00 09/03/24 09:04 Magnesium Oxide 400 Mg Tablet PO 10/02/24 09:59 400 mg DAILY ALEXIS Administration Melatonin 3 mg 09/01/24 21:00 09/02/24 21:07 Melatonin 3 Mg Tablet PO 3 mg HS ALEXIS Administration Mirabegron 25 mg 09/01/24 10:05 09/03/24 09:03 Mirabegron 25 Mg Er Tablet PO 25 mg DAILY ALEXIS Administration Multivitamins/Calcium 1 tablet 09/01/24 10:05 09/03/24 09:03 Therapeutic Multivitamins/Minerals Tab (*Bkc) PO 1 tablet DAILY ALEXIS Administration Pantoprazole Sodium 40 mg 09/01/24 21:00 09/03/24 09:04 Pantoprazole 40 Mg Tablet PO 40 mg Q12H ALEXIS Administration Polyethylene Glycol 17 gm 09/01/24 09:53 Polyethylene Glycol 3350 17 Gm Powd.Pack PO DAILY PRN Constipation Potassium Chloride 20 meq 09/01/24 10:00 09/03/24 09:03 Potassium Chloride 20 Meq Er Tablet PO 20 meq BID ALEXIS Administration Senna/Docusate Sodium 1 tab 09/01/24 10:05 09/03/24 09:04 Senna/Docusate Sodium Tablet PO 1 tab DAILY ALEXIS Administration Radiology Results: ITS Impressions Chest X-Ray 08/31/24 12:12 IMPRESSION: 1. Increased interstitial pattern in the bilateral lower lung zones most likely mild pulmonary edema with differential including atelectasis or pneumonia. Head CT 08/31/24 12:27 IMPRESSION: 1. No fracture or acute intracranial process. 2. 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 3. Age-related changes including mild to moderate diffuse volume loss and moderate scattered white matter hypoattenuation consistent with sequela of chronic small vessel ischemic disease. Labs Labs: Laboratory Results - last 24 hr 09/03/24 06:08 WBC 5.2 RBC 3.32 L Hgb 9.8 L Hct 31.4 L MCV 94.6 MCH 29.5 MCHC 31.2 L RDW 14.6 H Plt Count 189 MPV 9.5 Sodium 137 Potassium 4.4 Chloride 106 Carbon Dioxide 25 Anion Gap 6 BUN 15 Creatinine 1.04 H Estim Creat Clear Calc 29 Estimated GFR 50 L Glucose 98 Calcium 8.8 Total Bilirubin 0.8 AST 29 ALT 18 Alkaline Phosphatase 93 Total Protein 6.0 L Albumin 3.5 Quality VTE Prophylaxis VTE prophylaxis: mechanical ordered
[2024-09-03 16:01] VITALS: PULSE 67
[2024-09-03 20:00] VITALS: PULSE 72
[2024-09-03 20:09] VITALS: BP 115/99; PULSE 71; RESP 18; TEMP 36.7; O2SAT 96
[2024-09-03] MEDS: MELATONIN 3 MG TABLET PO (22:10)
[2024-09-03] MEDS: DONEPEZIL HCL 10 MG TABLET PO (22:10)
[2024-09-03 23:41] VITALS: PULSE 72
[2024-09-04] VITALS (8 sets, daily range): BP systolic 116–139; BP diastolic 58–68; PULSE 61–97; RESP 18–20; TEMP 36.3–36.7; O2SAT 95–100
[2024-09-04 07:56] LABS: Hematocrit 32.6 % (37.0-47.0); Hemoglobin 10.3 g/dL (12.0-15.0); Mean Corpuscular HGB Conc 31.6 g/dl (32-36); Mean Corpuscular Hemoglobin 29.5 pg (26-34); Mean Corpuscular Volume 93.4 fl (80-100); Platelet Count Result 229 k/mm3 (150-375); Red Blood Count 3.49 M/mm3 (4.2-5.4); Red Cell Distribution Width 14.6 % (11.5-14.5); White Blood Count 4.9 K/mm3 (4.5-10.0)
[2024-09-04] MEDS: CEPHALEXIN 500 MG CAPSULE PO ×2 (08:03→20:37)
[2024-09-04] MEDS: MIRABEGRON 25 MG ER TABLET PO (08:03)
[2024-09-04] MEDS: LORazepam (*CRX) 0.5 MG TABLET PO ×3 (08:03→16:38)
[2024-09-04] MEDS: MAGNESIUM OXIDE 400 MG TABLET PO (08:03)
[2024-09-04] MEDS: THERAPEUTIC MULTIVITAMINS/MINERALS TAB (*BKC) 1 TABLET PO (08:04)
[2024-09-04] MEDS: lamoTRIgine 100 MG TABLET PO (08:04)
[2024-09-04] MEDS: dilTIAZem HCL CD 120 MG CAP.24HR PO (08:04)
[2024-09-04] MEDS: DULoxetine HCL 60 MG CAPSULE.DR PO (08:04)
[2024-09-04] MEDS: PANTOPRAZOLE 40 MG TABLET PO ×2 (08:04→20:37)
[2024-09-04] MEDS: levETIRAcetam IV 250 MG in DEXTROSE 5% 100 ML 430 MG IVPB ×2 (08:04→20:37)
[2024-09-04] MEDS: FUROSEMIDE 40 MG TABLET PO (08:04)
[2024-09-04] MEDS: POTASSIUM CHLORIDE 20 MEQ ER TABLET PO ×2 (08:04→16:38)
[2024-09-04] MEDS: FERROUS SULFATE 325 MG TABLET DR PO (08:04)
[2024-09-04] MEDS: SENNA/DOCUSATE SODIUM TABLET 1 TAB PO (08:04)
[2024-09-04] MEDS: FLUTICASONE PROPIONATE 0.05% NA SPR 16 GM BTL (*BKC) 2 SPRAY NASAL (08:05)
[2024-09-04 08:10] LABS: Alanine Aminotransferase 17 U/L (6-35); Albumin Level 3.7 g/dL (3.5-5.1); Alkaline Phosphatase 97 U/L (38-126); Anion Gap 7 mmol/L (4-12); Aspartate Amino Transferase 27 U/L (14-36); Bilirubin,Total 0.7 mg/dL (0.2-1.3); Blood Urea Nitrogen 17 mg/dL (7-17); Calcium 9.2 mg/dL (8.4-10.2); Carbon Dioxide 26 mmol/L (22-30); Chloride 104 mmol/L (98-107); Estimated CRCL calculation 24 ml/min; Estimated Glomerular Filt Rate 40; Glucose 93 mg/dL (65-110); Potassium 4.5 mmol/L (3.4-5.0); Sodium 137 mmol/L (137-145)
--- NOTE | 2024-09-04 08:49 | P.PNIM_ITS ---
Progress Note: A&P Assessment and Plan (1) Profound anemia: Code(s): D64.9 - Anemia, unspecified Status: Acute Assessment and Plan: Patient sent from half-way facility after unwitnessed fall was found to have a hemoglobin of 6.5 and was transfused 2 units PRBCs she had recent hospitalization with EGD 06/27/2024 which was showing gastritis and hiatal hernia. Hemoccult stool was positive however patient does have history of iron deficiency anemia, but is currently on AC Eliquis 5 mg b.i.d. 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 While further AVMs could be present in the distal small intestine, a colonoscopy could not be completed due to insufficient bowel prep. Our recommendations include: 1) Initiating iron infusions now and to be completed over the next two weeks, and 2) Scheduling an outpatient colonoscopy. If the colonoscopy does not identify a source of bleeding, a capsule endoscopy is indicated to evaluate the remainder of the small bowel for additional AVMs. (2) Occult GI bleeding: Code(s): R19.5 - Other fecal abnormalities Status: Acute Assessment and Plan: SEE ABOVE (3) Bacteriuria with pyuria: Code(s): R82.71 - Bacteriuria; R82.81 - Pyuria Status: Acute Assessment and Plan: Urinalysis was positive for 2+ leukocyte esterase, 51 to 100 WBC, and 4+ bacteria Urince culture showed Ecoli with resistance to flouroquinolones Transitioned to keflex 500 mg q12h -8 total doses- last dose 09/06 2099 (4) V-tach: Code(s): I47.20 - Ventricular tachycardia, unspecified Status: Acute Assessment and Plan: Tele reviewed and 9 beat run seen overnight. [facility] Cardiology consulted (5) Paroxysmal atrial fibrillation: Code(s): I48.0 - Paroxysmal atrial fibrillation Status: Chronic Assessment and Plan: Chronic Continue her diltiazem Currently holding Eliquis, will likely need to be discontinued at time of discharge given recurrence of GI bleed (6) Essential hypertension: Code(s): I10 - Essential (primary) hypertension Status: Chronic Assessment and Plan: Chronic, continue home medications - diltiazem 120 mg daily - blood pressures remain stable, continue to monitor (7) Congestive heart failure: Qualifiers: Heart failure chronicity: chronic Heart failure type: unspecified Qualified Code(s): I50.9 - Heart failure, unspecified Code(s): I50.9 - Heart failure, unspecified Status: Acute Assessment and Plan: Echo 05/2024: LVEF 50-55% with grade I diastolic dysfunction and mild pulmonary hypertension * does not appear in exacerbation * will continue her 40 of Lasix daily (8) Seizure disorder: Code(s): G40.909 - Epilepsy, unspecified, not intractable, without status epilepticus Status: Chronic Assessment and Plan: * continued patient's Keppra * seizure precautions if indicated (9) Dementia: Qualifiers: Alzheimer's disease onset: late onset Dementia behavioral or psychological symptom: with other behavioral disturbance Dementia severity: moderate Dementia type: Alzheimer's Qualified Code(s): G30.1 - Alzheimer's disease with late onset; F02.B18 - Dementia in other diseases classified elsewhere, moderate, with other behavioral disturbance Code(s): F03.90 - Unspecified dementia, unspecified severity, without behavioral disturbance, psychotic disturbance, mood disturbance, and anxiety Status: Acute Assessment and Plan: * continue patient's donepezil (10) Psychiatric illness: Code(s): F99 - Mental disorder, not otherwise specified Status: Acute Assessment and Plan: continue duloxetine and Lamictal Subjective Date/time seen: 09/04/24 08:49 Interval history: 83-year-old female with dementia, seizures, paroxysmal atrial fibrillation on anticoagulation, congestive heart failure, hyperlipidemia, chronic kidney disease stage 3, gastroesophageal reflux disease, hiatal hernia, gastritis, and iron deficiency anemia who presented to the emergency department via EMS from [facility] for evaluation after an unwitnessed fall. Patient is pleasant lying comfortably in bed. Continues to endorse pain with urination and increased frequency. He has no other complaints denying chest pain, palpitations, nausea/vomiting, shortness of breath, and abdominal pain. Telemetry was reviewed and patient had a 9 beat run of V-tach overnight. Cardiology has been consulted. Magnesium was within normal limits. Patient remains on telemetry Review of Systems Review of Systems: All systems reviewed & are unremarkable except as noted in HPI and below Exam Narrative: AF HR 73 RR 18 SPo2 100 BP 116/62 General: female in no acute respiratory distress who is nontoxic appearing, lying semi recumbent in bed. HEENT: Normocephalic. Atraumatic. Extraocular movement intact. Sclera clear and anicteric. No facial asymmetry. Chest: Lungs are clear to auscultation bilaterally. No wheezes or crackles. CV: Heart was regular rate and rhythm. Abd: Abdomen was soft. Nontender. Nondistended. Positive bowel sounds. Ext: No clubbing, cyanosis, or edema. DP pulses bilaterally. Neuro: Patient is alert and oriented x4. Speech is clear. Objective Data Vital Signs Vital Signs: Vital Signs - 24 hr 09/03/24 14:00 09/03/24 16:01 09/03/24 20:00 Temperature 97.5 F L Pulse Rate 64 67 72 Respiratory Rate 20 Blood Pressure 110/60 Pulse Oximetry 100 09/03/24 20:09 09/03/24 23:41 09/04/24 03:24 Temperature 98.0 F Pulse Rate 71 72 70 Respiratory Rate 18 Blood Pressure 115/99 H Pulse Oximetry 96 09/04/24 05:53 Temperature 97.3 F L Pulse Rate 70 Respiratory Rate 18 Blood Pressure 139/58 L Pulse Oximetry 98 Intake/Output Intake/Output: Intake & Output 09/01/24 09/02/24 09/03/24 09/04/24 23:59 23:59 23:59 23:59 Intake Total 3259 902 6928.5 Balance 4509 972 5687.5 Meds/Results Medications: Active Medications Generic Name Dose Route Start Last Admin Trade Name Freq PRN Reason Stop Dose Admin Acetaminophen 650 mg 08/31/24 21:17 09/02/24 09:48 Acetaminophen 325 Mg Tablet PO 650 mg Q6H PRN Administration Mild Pain (1-3) or Fever Cephalexin HCl 500 mg 09/03/24 09:00 09/04/24 08:03 Cephalexin 500 Mg Capsule PO 09/06/24 21:01 500 mg Q12HR ALEXIS Administration Diltiazem HCl 120 mg 09/01/24 10:00 09/04/24 08:04 Diltiazem Hcl Cd 120 Mg Cap.24hr PO 120 mg DAILY ALEXIS Administration Donepezil HCl 10 mg 09/01/24 21:00 09/03/24 22:10 Donepezil Hcl 10 Mg Tablet PO 10 mg HS ALEXIS Administration Duloxetine HCl 60 mg 09/01/24 10:00 09/04/24 08:04 Duloxetine Hcl 60 Mg Capsule.Dr PO 60 mg DAILY ALEXIS Administration Ferrous Sulfate 325 mg 09/01/24 10:05 09/04/24 08:04 Ferrous Sulfate [address] PO 325 mg DAILY@0800 ALEXIS Administration Fluticasone Propionate 2 spray 09/01/24 10:05 09/04/24 08:05 Fluticasone Propionate 0.05% Na Spr 16 Gm Btl (*Bkc) NASAL 2 spray DAILY ALEXIS Administration Furosemide 40 mg 09/01/24 10:05 09/04/24 08:04 Furosemide 40 Mg Tablet PO 40 mg DAILY ALEXIS Administration Levetiracetam 250 mg/ Dextrose 102.5 mls @ 430 mls/hr 09/02/24 21:00 09/04/24 08:04 IVPB 430 mls/hr Q12HR ALEIXS Administration Lamotrigine 100 mg 09/01/24 10:05 09/04/24 08:04 Lamotrigine 100 Mg Tablet PO 100 mg DAILY ALEXIS Administration Levetiracetam 250 mg 09/01/24 10:05 09/02/24 09:49 Levetiracetam 250 Mg Tablet PO 250 mg Q12HR ALEXIS Administration Lorazepam 0.5 mg 09/01/24 10:05 09/04/24 08:03 Lorazepam (*Crx) 0.5 Mg Tablet PO 0.5 mg TID ALEXIS Administration Magnesium Oxide 400 mg 09/01/24 10:00 09/04/24 08:03 Magnesium Oxide 400 Mg Tablet PO 10/02/24 09:59 400 mg DAILY ALEXIS Administration Melatonin 3 mg 09/01/24 21:00 09/03/24 22:10 Melatonin 3 Mg Tablet PO 3 mg HS ALEXIS Administration Mirabegron 25 mg 09/01/24 10:05 09/04/24 08:03 Mirabegron 25 Mg Er Tablet PO 25 mg DAILY ALEXIS Administration Multivitamins/Calcium 1 tablet 09/01/24 10:05 09/04/24 08:04 Therapeutic Multivitamins/Minerals Tab (*Bkc) PO 1 tablet DAILY ALEXIS Administration Pantoprazole Sodium 40 mg 09/01/24 21:00 09/04/24 08:04 Pantoprazole 40 Mg Tablet PO 40 mg Q12H ALEXIS Administration Polyethylene Glycol 17 gm 09/01/24 09:53 Polyethylene Glycol 3350 17 Gm Powd.Pack PO DAILY PRN Constipation Potassium Chloride 20 meq 09/01/24 10:00 09/04/24 08:04 Potassium Chloride 20 Meq Er Tablet PO 20 meq BID ALEXIS Administration Senna/Docusate Sodium 1 tab 09/01/24 10:05 09/04/24 08:04 Senna/Docusate Sodium Tablet PO 1 tab DAILY ALEXIS Administration Radiology Results: ITS Impressions Chest X-Ray 08/31/24 12:12 IMPRESSION: 1. Increased interstitial pattern in the bilateral lower lung zones most likely mild pulmonary edema with differential including atelectasis or pneumonia. Head CT 08/31/24 12:27 IMPRESSION: 1. No fracture or acute intracranial process. 2. 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 3. Age-related changes including mild to moderate diffuse volume loss and moderate scattered white matter hypoattenuation consistent with sequela of chronic small vessel ischemic disease. Labs Labs: Laboratory Results - last 24 hr 09/04/24 07:06 WBC 4.9 RBC 3.49 L Hgb 10.3 L Hct 32.6 L MCV 93.4 MCH 29.5 MCHC 31.6 L RDW 14.6 H Plt Count 229 MPV 10.0 Sodium 137 Potassium 4.5 Chloride 104 Carbon Dioxide 26 Anion Gap 7 BUN 17 Creatinine 1.26 H Estim Creat Clear Calc 24 Estimated GFR 40 L Glucose 93 Calcium 9.2 Total Bilirubin 0.7 AST 27 ALT 17 Alkaline Phosphatase 97 Total Protein 7.0 Albumin 3.7 Quality VTE Prophylaxis VTE prophylaxis: mechanical ordered
[2024-09-04 14:47] LABS: Magnesium 1.9 mg/dL (1.6-2.3)
[2024-09-04] MEDS: DONEPEZIL HCL 10 MG TABLET PO (20:36)
[2024-09-04] MEDS: MELATONIN 3 MG TABLET PO (20:37)
[2024-09-05] VITALS (7 sets, daily range): BP systolic 119–129; BP diastolic 46–55; PULSE 59–91; RESP 16–20; TEMP 36–36.6; O2SAT 94–97
[2024-09-05 07:02] LABS: Hematocrit 32.1 % (37.0-47.0); Hemoglobin 9.8 g/dL (12.0-15.0); Mean Corpuscular HGB Conc 30.5 g/dl (32-36); Mean Corpuscular Hemoglobin 29.3 pg (26-34); Mean Corpuscular Volume 96.1 fl (80-100); Mean Platelet Volume 9.8 fl (7.4-10.4); Platelet Count Result 214 k/mm3 (150-375); Red Blood Count 3.34 M/mm3 (4.2-5.4); Red Cell Distribution Width 14.9 % (11.5-14.5); White Blood Count 4.6 K/mm3 (4.5-10.0)
[2024-09-05 07:13] LABS: Alanine Aminotransferase 18 U/L (6-35); Albumin Level 3.5 g/dL (3.5-5.1); Alkaline Phosphatase 85 U/L (38-126); Anion Gap 7 mmol/L (4-12); Aspartate Amino Transferase 24 U/L (14-36); Bilirubin,Total 0.6 mg/dL (0.2-1.3); Blood Urea Nitrogen 18 mg/dL (7-17); Calcium 8.6 mg/dL (8.4-10.2); Carbon Dioxide 26 mmol/L (22-30); Chloride 104 mmol/L (98-107); Estimated CRCL calculation 26 ml/min; Estimated Glomerular Filt Rate 44; Glucose 89 mg/dL (65-110); Potassium 4.4 mmol/L (3.4-5.0); Sodium 137 mmol/L (137-145)
--- NOTE | 2024-09-05 07:13 | PM.CNCAR ---
Assessment and Plan Assessment and plan (1) Influenza A: Code(s): J10.1 - Influenza due to other identified influenza virus with other respiratory manifestations Status: Acute (2) Atrial fibrillation with rapid ventricular response: Code(s): I48.91 - Unspecified atrial fibrillation Status: Acute Plan 1. Atrial fibrillation 2. Anemia, most likely secondary to GI loss 3. SVT with aberrant conduction 4. Dementia -currently her rate is controlled on oral diltiazem, will continue -she had 1 AVM found during endoscopy. She was on Xarelto prior to this presentation. She does have a history of falls in the nursing facility. Will need an extensive discussion with family regarding the risks and benefits of anticoagulation for her. She can be safely started back on anticoagulation if okay with GI and the family is okay. I would consider switching to apixaban because of the lower risk off bleeding with apixaban. A Watchman device can be considered as an outpatient -no evidence of VT. Telemetry shows SVT with aberrant conduction -cardiology will sign off -please call us with any questions or concerns History of Present Illness History of Present Illness Consult date/time: 09/05/24 07:13 Reason For Visit: Anemia, UTI, upper GI bleed Narrative: This is an 83-year-old woman I am seeing today at the request of the hospitalist because of a run of NSVT. She has dementia, seizures, paroxysmal atrial fibrillation NOT on anticoagulation, congestive heart failure, hyperlipidemia, chronic kidney disease stage 3, gastroesophageal reflux disease, hiatal hernia, gastritis, and iron deficiency anemia who presented after an unwitnessed fall. She was found to be in AFib RVR and was kept on diltiazem infusion her anticoagulation was stopped because of elevated INR and anemia she underwent an EGD as well. She has a history of recurrent falls in the senior living and is currently DNR. Cardiology was consulted for an episode of nonsustained VT. No history obtained from the patient as she has underlying dementia I reviewed telemetry does not show any episode of VT. 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, 2019 Thoracic compression fracture T10 Essential hypertension Osteoporosis Frequent urinary tract infections history of ESBL E coli infection March 2018 Seizure disorder Schizoaffective disorder Hyperlipidemia Depression Dementia Paroxysmal atrial fibrillation Surgical History Surgical History History of arthroscopy of left shoulder History of total left hip arthroplasty (2015) History of bladder suspension procedure History of hysterectomy Family History Family History Sibling Dementia Cerebrovascular accident Sibling Acute myocardial infarction Mother Cirrhosis Father Emphysema of lung Social History Social History Social History: Surrogate medical decision maker: Cameron Naranjo. Code status: Do not resuscitate. Smoking packs per day: 1 Smoking cigarettes per day: 20.0 Years smoked: 10 Smoking pack-years: 10.00 Smoking status: Unknown if ever smoked Second hand tobacco smoke exposure: No Alcohol intake: unknown Substance use: never Substance use type: does not use Do You Feel Safe in your Home?: Yes Lack of Transportation: No Lack of Food: Never True Current Housing: I Have Housing Concerned About Future Housing: No Difficulty Paying Gas/Electric Bills: No Difficulty Paying for Meds: No Currently Unemployed: No Education: High School Diploma/GED Difficulty w/ Childcare or Family Care: No Additional living arrangements comments: . Resident at [facility]. 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: No Agree to blood products: Yes Meds Home Medications and Allergies Home Medications ?Medication ?Instructions ?Recorded ?Confirmed ?Type cholecalciferol (vitamin D3) 1,250 50,000 unit PO WEEKLY 03/20/19 08/31/24 History mcg (50,000 unit) tablet cyanocobalamin (vitamin B-12) 1,000 mcg PO DAILY 03/20/19 08/31/24 History 1,000 mcg capsule donepezil 10 mg tablet 10 mg PO HS 03/20/19 08/31/24 History polyethylene glycol 3350 17 17 g PO DAILY PRN Constipation 03/20/19 08/31/24 History gram/dose oral powder (Miralax) duloxetine 60 mg capsule,delayed 60 mg PO DAILY 07/16/21 08/31/24 History release lamotrigine 100 mg tablet 100 mg PO DAILY 07/16/21 08/31/24 History levetiracetam 250 mg tablet 250 mg PO BID 07/16/21 08/31/24 History (Keppra) melatonin 3 mg tablet 3 mg PO HS 07/16/21 08/31/24 History cranberry fruit 450 mg tablet 450 mg PO DAILY 04/05/22 08/31/24 History (cranberry) fluticasone propionate 50 2 spray intranasal DAILY 04/05/22 08/31/24 History mcg/actuation nasal spray,suspension (Allergy Relief (fluticasone)) mirabegron 25 mg tablet,extended 25 mg PO DAILY 04/05/22 08/31/24 History release 24 hr (Myrbetriq) Marisol-Tussin 5 ml PO Q6H PRN Congestion 09/13/22 08/31/24 History acetaminophen 325 mg tablet 650 mg PO Q4H PRN Pain (Scale 09/13/22 08/31/24 History Score 1-3) lorazepam 0.5 mg tablet 0.5 mg PO TID 09/13/22 08/31/24 History magnesium oxide 1 tablet PO DAILY 09/13/22 08/31/24 History potassium chloride 20 mEq 20 meq PO BID 09/13/22 08/31/24 History tablet,extended release(part/cryst) (Klor-Con M) ferrous sulfate 325 mg (65 mg 325 mg PO DAILY 30 days #30 tabs 09/17/22 08/31/24 Rx iron) tablet,delayed release sennosides 8.6 mg-docusate sodium 1 tab-cap PO DAILY 06/06/23 08/31/24 History 50 mg tablet (Senna Plus) apixaban 5 mg tablet (Eliquis) 5 mg PO Q12HR #60 tabs 06/13/23 08/31/24 Rx diltiazem HCl 120 mg 120 mg PO DAILY #30 caps 06/13/23 08/31/24 Rx capsule,extended release 24 hr furosemide 40 mg tablet 40 mg PO DAILY #30 tabs 06/13/23 08/31/24 Rx cetirizine 10 mg tablet (24Hour 10 mg PO DAILY 05/21/24 08/31/24 History Allergy) multivitamin with iron-mineral 1 tablet PO DAILY 08/31/24 08/31/24 History pantoprazole 40 mg tablet,delayed 40 mg PO Q12H 08/31/24 08/31/24 History release Allergies Allergy/AdvReac Type Severity Reaction Status Date / Time sertraline Allergy Severe Unknown Verified 08/31/24 16:56 hydromorphone Allergy Intermediate Unknown Verified 08/31/24 16:56 Vital Signs Vital Signs - 24 hr 09/04/24 08:00 09/04/24 12:00 09/04/24 12:40 Temperature Pulse Rate 61 73 Respiratory Rate Blood Pressure Pulse Oximetry Oxygen Delivery Room Air 09/04/24 13:35 09/04/24 14:00 09/04/24 15:55 Temperature 36.5 C Pulse Rate 73 Respiratory Rate 18 Blood Pressure 116/62 Pulse Oximetry 95 100 Oxygen Delivery Room Air Room Air 09/04/24 16:00 09/04/24 20:07 09/05/24 06:00 Temperature 36.7 C 36.0 C L Pulse Rate 97 77 59 L Respiratory Rate 20 20 Blood Pressure 116/68 129/55 L Pulse Oximetry 96 97 Oxygen Delivery Exam Const: General: comfortable Other: Overweight elderly lady who is comfortable offers no complaints but she is only oriented to self HENMT: Mouth: Yes moist mucous membranes Eyes: Sclera: sclerae normal Neck: Neck: supple Resp: Other: Coarse expiratory breath sounds in both lung huber large airway noise Cardio: Rate: regular rate Rhythm: abnormal rhythm irregularly irregular Other: Soft systolic murmur audible at the left sternal border, difficult exam with loud airway noise GI: GI Palp: Yes Soft to palpation Auscultation: normal bowel sounds Skin: General skin exam: normal color Neuro: Other: Patient is alert and arousable oriented only to self Extrem: Other: No edema at all, good distal perfusion Results Labs and Meds 09/05/24 06:32 09/05/24 06:32 Lab results: Cardiac Enzymes 09/04/24 Range/Units 07:06 AST 27 (14-36) U/L CBC 09/04/24 09/05/24 Range/Units 07:06 06:32 WBC 4.9 4.6 (4.5-10.0) K/mm3 RBC 3.49 L 3.34 L (4.2-5.4) M/mm3 Hgb 10.3 L 9.8 L (12.0-15.0) g/dL Hct 32.6 L 32.1 L (37.0-47.0) % Plt Count 229 214 (150-375) k/mm3 Comprehensive Metabolic Panel 09/04/24 Range/Units 07:06 Sodium 137 (137-145) mmol/L Potassium 4.5 (3.4-5.0) mmol/L Chloride 104 (98-107) mmol/L Carbon Dioxide 26 (22-30) mmol/L BUN 17 (7-17) mg/dL Creatinine 1.26 H (0.7-1.0) mg/dL Glucose 93 (65-110) mg/dL Calcium 9.2 (8.4-10.2) mg/dL AST 27 (14-36) U/L ALT 17 (6-35) U/L Alkaline Phosphatase 97 (38-126) U/L Total Protein 7.0 (6.3-8.2) g/dL Albumin 3.7 (3.5-5.1) g/dL Intake and Output 09/04/24 09/04/24 09/05/24 15:59 23:59 07:59 Intake Total 102.5 Balance 102.5 Intake: IV 102.5 levETIRAcetam IV 250 mg In 102.5 Dextrose 5% 100 ml @ 430 mls/hr IVPB Q12HR [facility] Rx#:[id number] Other: # Unmeasured Voids 3 0 Number of Bowel Movements Today 1 Patient Weight 09/05/24 23:59 Weight 67 kg
[2024-09-05] MEDS: FERROUS SULFATE 325 MG TABLET DR PO (08:59)
[2024-09-05] MEDS: dilTIAZem HCL CD 120 MG CAP.24HR PO (08:59)
[2024-09-05] MEDS: MAGNESIUM OXIDE 400 MG TABLET PO (08:59)
[2024-09-05] MEDS: POTASSIUM CHLORIDE 20 MEQ ER TABLET PO ×2 (08:59→16:45)
[2024-09-05] MEDS: PANTOPRAZOLE 40 MG TABLET PO ×2 (09:00→21:15)
[2024-09-05] MEDS: DULoxetine HCL 60 MG CAPSULE.DR PO (09:00)
[2024-09-05] MEDS: THERAPEUTIC MULTIVITAMINS/MINERALS TAB (*BKC) 1 TABLET PO (09:00)
[2024-09-05] MEDS: SENNA/DOCUSATE SODIUM TABLET 1 TAB PO (09:00)
[2024-09-05] MEDS: FUROSEMIDE 40 MG TABLET PO (09:00)
[2024-09-05] MEDS: CEPHALEXIN 500 MG CAPSULE PO ×2 (09:00→21:15)
[2024-09-05] MEDS: LORazepam (*CRX) 0.5 MG TABLET PO ×3 (09:00→16:45)
[2024-09-05] MEDS: MIRABEGRON 25 MG ER TABLET PO (09:00)
[2024-09-05] MEDS: FLUTICASONE PROPIONATE 0.05% NA SPR 16 GM BTL (*BKC) 2 SPRAY NASAL (09:02)
[2024-09-05] MEDS: lamoTRIgine 100 MG TABLET PO (09:05)
--- NOTE | 2024-09-05 15:23 | P.PNIM_ITS ---
Progress Note: A&P Assessment and Plan (1) Profound anemia: Code(s): D64.9 - Anemia, unspecified Status: Acute Assessment and Plan: Patient sent from fdc facility after unwitnessed fall was found to have a hemoglobin of 6.5 and was transfused 2 units PRBCs she had recent hospitalization with EGD 06/27/2024 which was showing gastritis and hiatal hernia. Hemoccult stool was positive however patient does have history of iron deficiency anemia, but is currently on AC Eliquis 5 mg b.i.d. 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 While further AVMs could be present in the distal small intestine, a colonoscopy could not be completed due to insufficient bowel prep. Our recommendations include: 1) Initiating iron infusions now (09/02) and to be completed over the next two weeks, and 2) Scheduling an outpatient colonoscopy. If the colonoscopy does not identify a source of bleeding, a capsule endoscopy is indicated to evaluate the remainder of the small bowel for additional AVMs. (2) Occult GI bleeding: Code(s): R19.5 - Other fecal abnormalities Status: Acute Assessment and Plan: SEE ABOVE (3) Bacteriuria with pyuria: Code(s): R82.71 - Bacteriuria; R82.81 - Pyuria Status: Acute Assessment and Plan: Urinalysis was positive for 2+ leukocyte esterase, 51 to 100 WBC, and 4+ bacteria Urince culture showed Ecoli with resistance to flouroquinolones Transitioned to keflex 500 mg q12h -8 total doses- last dose 09/06 2099 (4) V-tach: Code(s): I47.20 - Ventricular tachycardia, unspecified Status: Acute Assessment and Plan: Tele reviewed and 9 beat run seen overnight. [facility] Cardiology consulted No evidence of VT. Tele showing primarily SVT with aberrant conduction. (5) Paroxysmal atrial fibrillation: Code(s): I48.0 - Paroxysmal atrial fibrillation Status: Chronic Assessment and Plan: Chronic Continue her diltiazem Currently holding Eliquis, will likely need to be discontinued at time of discharge given recurrence of GI bleed. Will discuss with GI, Cardiology and family (6) Essential hypertension: Code(s): I10 - Essential (primary) hypertension Status: Chronic Assessment and Plan: Chronic, continue home medications - diltiazem 120 mg daily - blood pressures remain stable, continue to monitor (7) Congestive heart failure: Qualifiers: Heart failure type: unspecified Heart failure chronicity: chronic Qualified Code(s): I50.9 - Heart failure, unspecified Code(s): I50.9 - Heart failure, unspecified Status: Acute Assessment and Plan: Echo 05/2024: LVEF 50-55% with grade I diastolic dysfunction and mild pulmonary hypertension * does not appear in exacerbation * will continue her 40 of Lasix daily (8) Seizure disorder: Code(s): G40.909 - Epilepsy, unspecified, not intractable, without status epilepticus Status: Chronic Assessment and Plan: * continued patient's Keppra * seizure precautions if indicated (9) Dementia: Qualifiers: Dementia type: Alzheimer's Alzheimer's disease onset: late onset Dementia severity: moderate Dementia behavioral or psychological symptom: with other behavioral disturbance Qualified Code(s): G30.1 - Alzheimer's disease with late onset; F02.B18 - Dementia in other diseases classified elsewhere, moderate, with other behavioral disturbance Code(s): F03.90 - Unspecified dementia, unspecified severity, without behavioral disturbance, psychotic disturbance, mood disturbance, and anxiety Status: Acute Assessment and Plan: * continue patient's donepezil (10) Psychiatric illness: Code(s): F99 - Mental disorder, not otherwise specified Status: Acute Assessment and Plan: continue duloxetine and Lamictal Time Spent With Patient Time with patient: 25 - 35 minutes Subjective Date/time seen: 09/05/24 15:23 Interval history: 83-year-old female with dementia, seizures, paroxysmal atrial fibrillation on anticoagulation, congestive heart failure, hyperlipidemia, chronic kidney disease stage 3, gastroesophageal reflux disease, hiatal hernia, gastritis, and iron deficiency anemia who presented to the emergency department via EMS from [facility], [place], operated by [facility] for evaluation after an unwitnessed fall. Patient is pleasant lying comfortably in bed. Remains AOx2 on assessment. She has no complaints denying chest pain, shortness of breath, palpitations, nausea/vomiting and abdominal pain. Review of Systems Review of Systems: All systems reviewed & are unremarkable except as noted in HPI and below Exam Narrative: AF HR 68 RR18 Spo2 95 BP 122/46 General: female in no acute respiratory distress who is nontoxic appearing, sitting up in chair HEENT: Normocephalic. Atraumatic. Extraocular movement intact. Sclera clear and anicteric. No facial asymmetry. Chest: Lungs are clear to auscultation bilaterally. No wheezes or crackles. CV: Heart was regular rate and rhythm. Abd: Abdomen was soft. Nontender. Nondistended. Positive bowel sounds. Ext: No clubbing, cyanosis, or edema. DP pulses bilaterally. Neuro: Patient is alert and oriented x2 (person, place). Speech is clear. Objective Data Vital Signs Vital Signs: Vital Signs - 24 hr 09/04/24 15:55 09/04/24 16:00 09/04/24 20:07 Temperature 98.0 F Pulse Rate 97 77 Respiratory Rate 20 Blood Pressure 116/68 Pulse Oximetry 96 Oxygen Delivery Room Air 09/05/24 06:00 09/05/24 09:00 09/05/24 12:03 Temperature 96.8 F L Pulse Rate 59 L 91 Respiratory Rate 20 20 Blood Pressure 129/55 L Pulse Oximetry 97 97 Oxygen Delivery Room Air 09/05/24 14:00 Temperature 97.9 F Pulse Rate 68 Respiratory Rate 18 Blood Pressure 122/46 L Pulse Oximetry 95 Oxygen Delivery Intake/Output Intake/Output: Intake & Output 09/02/24 09/03/24 09/04/24 09/05/24 23:59 23:59 23:59 23:59 Intake Total 920 3067.5 102.5 480 Balance 920 3067.5 102.5 480 Meds/Results Medications: Active Medications Generic Name Dose Route Start Last Admin Trade Name Freq PRN Reason Stop Dose Admin Acetaminophen 650 mg 08/31/24 21:17 09/02/24 09:48 Acetaminophen 325 Mg Tablet PO 650 mg Q6H PRN Administration Mild Pain (1-3) or Fever Benzocaine 1 lozenge 09/05/24 14:19 Benzocaine/Menthol (*Bkc) 18 Ea Lozenge PO PRN PRN Sore Throat Cephalexin HCl 500 mg 09/03/24 09:00 09/05/24 09:00 Cephalexin 500 Mg Capsule PO 09/06/24 21:01 500 mg Q12HR ALEXIS Administration Diltiazem HCl 120 mg 09/01/24 10:00 09/05/24 08:59 Diltiazem Hcl Cd 120 Mg Cap.24hr PO 120 mg DAILY ALEXIS Administration Donepezil HCl 10 mg 09/01/24 21:00 09/04/24 20:36 Donepezil Hcl 10 Mg Tablet PO 10 mg HS ALEXIS Administration Duloxetine HCl 60 mg 09/01/24 10:00 09/05/24 09:00 Duloxetine Hcl 60 Mg Capsule.Dr PO 60 mg DAILY ALEXIS Administration Ferrous Sulfate 325 mg 09/01/24 10:05 09/05/24 08:59 Ferrous Sulfate [address] PO 325 mg DAILY@0800 ALEXIS Administration Fluticasone Propionate 2 spray 09/01/24 10:05 09/05/24 09:02 Fluticasone Propionate 0.05% Na Spr 16 Gm Btl (*Bkc) NASAL 2 spray DAILY ALEXIS Administration Furosemide 40 mg 09/01/24 10:09/05/24 09:00 Furosemide 40 Mg Tablet PO 40 mg DAILY ALEXIS Administration Lamotrigine 100 mg 09/01/24 10:09/05/24 09:05 Lamotrigine 100 Mg Tablet PO 100 mg DAILY ALEXIS Administration Levetiracetam 250 mg 09/01/24 10:05 09/02/24 09:49 Levetiracetam 250 Mg Tablet PO 250 mg Q12HR ALEXIS Administration Lorazepam 0.5 mg 09/01/24 10:09/05/24 13:42 Lorazepam (*Crx) 0.5 Mg Tablet PO 0.5 mg TID ALEXIS Administration Magnesium Oxide 400 mg 09/01/24 10:00 09/05/24 08:59 Magnesium Oxide 400 Mg Tablet PO 10/02/24 09:59 400 mg DAILY ALEXIS Administration Melatonin 3 mg 09/01/24 21:00 09/04/24 20:37 Melatonin 3 Mg Tablet PO 3 mg HS ALEXIS Administration Mirabegron 25 mg 09/01/24 10:05 09/05/24 09:00 Mirabegron 25 Mg Er Tablet PO 25 mg DAILY ALEXIS Administration Multivitamins/Calcium 1 tablet 09/01/24 10:05 09/05/24 09:00 Therapeutic Multivitamins/Minerals Tab (*Bkc) PO 1 tablet DAILY ALEXIS Administration Pantoprazole Sodium 40 mg 09/01/24 21:00 09/05/24 09:00 Pantoprazole 40 Mg Tablet PO 40 mg Q12H ALEXIS Administration Polyethylene Glycol 17 gm 09/01/24 09:53 Polyethylene Glycol 3350 17 Gm Powd.Pack PO DAILY PRN Constipation Potassium Chloride 20 meq 09/01/24 10:00 09/05/24 08:59 Potassium Chloride 20 Meq Er Tablet PO 20 meq BID ALEXIS Administration Senna/Docusate Sodium 1 tab 09/01/24 10:05 09/05/24 09:00 Senna/Docusate Sodium Tablet PO 1 tab DAILY ALEXIS Administration Radiology Results: ITS Impressions Chest X-Ray 08/31/24 12:12 IMPRESSION: 1. Increased interstitial pattern in the bilateral lower lung zones most likely mild pulmonary edema with differential including atelectasis or pneumonia. Head CT 08/31/24 12:27 IMPRESSION: 1. No fracture or acute intracranial process. 2. 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 3. Age-related changes including mild to moderate diffuse volume loss and moderate scattered white matter hypoattenuation consistent with sequela of chronic small vessel ischemic disease. Labs Labs: Laboratory Results - last 24 hr 09/05/24 06:32 WBC 4.6 RBC 3.34 L Hgb 9.8 L Hct 32.1 L MCV 96.1 MCH 29.3 MCHC 30.5 L RDW 14.9 H Plt Count 214 MPV 9.8 Sodium 137 Potassium 4.4 Chloride 104 Carbon Dioxide 26 Anion Gap 7 BUN 18 H Creatinine 1.16 H Estim Creat Clear Calc 26 Estimated GFR 44 L Glucose 89 Calcium 8.6 Total Bilirubin 0.6 AST 24 ALT 18 Alkaline Phosphatase 85 Total Protein 6.0 L Albumin 3.5 Quality VTE Prophylaxis VTE prophylaxis: mechanical ordered
[2024-09-05] MEDS: levETIRAcetam 250 MG TABLET PO (21:14)
[2024-09-05] MEDS: DONEPEZIL HCL 10 MG TABLET PO (21:14)
[2024-09-05] MEDS: MELATONIN 3 MG TABLET PO (21:15)
[2024-09-06] VITALS: PULSE 68
[2024-09-06 04:00] VITALS: PULSE 68
[2024-09-06 06:00] VITALS: BP 130/56; PULSE 70; RESP 16; TEMP 36.7; O2SAT 97
[2024-09-06 06:48] LABS: Hematocrit 29.9 % (37.0-47.0); Hemoglobin 9.3 g/dL (12.0-15.0); Mean Corpuscular HGB Conc 31.1 g/dl (32-36); Mean Corpuscular Hemoglobin 29.8 pg (26-34); Mean Corpuscular Volume 95.8 fl (80-100); Mean Platelet Volume 9.7 fl (7.4-10.4); Platelet Count Result 221 k/mm3 (150-375); Red Blood Count 3.12 M/mm3 (4.2-5.4); Red Cell Distribution Width 15.2 % (11.5-14.5); White Blood Count 4.7 K/mm3 (4.5-10.0)
[2024-09-06 07:02] LABS: Alanine Aminotransferase 17 U/L (6-35); Albumin Level 3.4 g/dL (3.5-5.1); Alkaline Phosphatase 81 U/L (38-126); Anion Gap 7 mmol/L (4-12); Aspartate Amino Transferase 26 U/L (14-36); Bilirubin,Total 0.5 mg/dL (0.2-1.3); Blood Urea Nitrogen 21 mg/dL (7-17); Calcium 8.6 mg/dL (8.4-10.2); Carbon Dioxide 27 mmol/L (22-30); Chloride 102 mmol/L (98-107); Estimated CRCL calculation 27 ml/min; Estimated Glomerular Filt Rate 47; Glucose 93 mg/dL (65-110); Potassium 3.9 mmol/L (3.4-5.0); Sodium 136 mmol/L (137-145)
[2024-09-06] MEDS: SENNA/DOCUSATE SODIUM TABLET 1 TAB PO (09:29)
[2024-09-06] MEDS: lamoTRIgine 100 MG TABLET PO (09:29)
[2024-09-06] MEDS: CEPHALEXIN 500 MG CAPSULE PO (09:29)
[2024-09-06] MEDS: POTASSIUM CHLORIDE 20 MEQ ER TABLET PO (09:29)
[2024-09-06] MEDS: MAGNESIUM OXIDE 400 MG TABLET PO (09:29)
[2024-09-06] MEDS: levETIRAcetam 250 MG TABLET PO (09:29)
[2024-09-06 09:30] VITALS: PULSE 73
[2024-09-06] MEDS: FUROSEMIDE 40 MG TABLET PO (09:30)
[2024-09-06] MEDS: PANTOPRAZOLE 40 MG TABLET PO (09:30)
[2024-09-06] MEDS: THERAPEUTIC MULTIVITAMINS/MINERALS TAB (*BKC) 1 TABLET PO (09:30)
[2024-09-06] MEDS: FERROUS SULFATE 325 MG TABLET DR PO (09:30)
[2024-09-06] MEDS: DULoxetine HCL 60 MG CAPSULE.DR PO (09:30)
[2024-09-06] MEDS: dilTIAZem HCL CD 120 MG CAP.24HR PO (09:30)
[2024-09-06] MEDS: LORazepam (*CRX) 0.5 MG TABLET PO ×2 (09:30→12:37)
[2024-09-06] MEDS: MIRABEGRON 25 MG ER TABLET PO (09:31)
[2024-09-06] MEDS: APIXABAN 5 MG TABLET PO (09:35)
[2024-09-06] MEDS: ACETAMINOPHEN 325 MG TABLET 650 MG PO (09:50)
--- NOTE | 2024-09-06 10:06 | ECG_ITS ---
Test Date: 2024-09-06 10:23:12 Measurements Intervals [place] Rate: 66 P: 18 WA: 181 QRS: 8 QRSD: 134 T: 60 QT: 431 QTc: 454 Interpretive Statements SINUS RHYTHM POSSIBLE LEFT ATRIAL ENLARGEMENT [-0.1mV P-WAVE IN V1/V2] LEFT BUNDLE BRANCH BLOCK [120+ ms QRS DURATION, 80+ ms Q/S IN V1/V2, 85+ ms R IN I/aVL/V5/V6] Compared to ECG 08/31/2024 11:51:06 No significant changes Electronically Signed On 09-06-2024 19:09:07 CDT by Carito Tellez
[2024-09-06] MEDS: guaiFENesin 12 HR 600 MG TABCR PO (10:43)
[2024-09-06] MEDS: FLUTICASONE PROPIONATE 0.05% NA SPR 16 GM BTL (*BKC) 2 SPRAY NASAL (10:43)
[2024-09-06 11:06] LABS: Troponin I < 0.012 ng/mL (0.000-0.034)
[2024-09-06 13:56] VITALS: BP 126/57; PULSE 70; RESP 20; TEMP 36.5; O2SAT 95
--- NOTE | 2024-09-06 14:08 | P.DS_ITS ---
DS: Admitting Diagnosis Discharge Date 09/06/2024 Admitting Diagnosis Profound anemia Occult GI bleeding V-tach Bacteria with pyuria Paroxysmal atrial fibrillation Essential hypertension Congestive heart failure Seizure disorder Dementia DS: Discharge Diagnosis Discharge Diagnosis (1) Profound anemia: Code(s): D64.9 - Anemia, unspecified Status: Acute (2) Occult GI bleeding: Code(s): R19.5 - Other fecal abnormalities Status: Acute (3) Bacteriuria with pyuria: Code(s): R82.71 - Bacteriuria; R82.81 - Pyuria Status: Acute (4) V-tach: Code(s): I47.20 - Ventricular tachycardia, unspecified Status: Acute (5) Paroxysmal atrial fibrillation: Code(s): I48.0 - Paroxysmal atrial fibrillation Status: Chronic (6) Essential hypertension: Code(s): I10 - Essential (primary) hypertension Status: Chronic (7) Congestive heart failure: Qualifiers: Heart failure chronicity: chronic Heart failure type: unspecified Qualified Code(s): I50.9 - Heart failure, unspecified Code(s): I50.9 - Heart failure, unspecified Status: Acute (8) Seizure disorder: Code(s): G40.909 - Epilepsy, unspecified, not intractable, without status epilepticus Status: Chronic (9) Dementia: Qualifiers: Alzheimer's disease onset: late onset Dementia behavioral or psychological symptom: with other behavioral disturbance Dementia severity: moderate Dementia type: Alzheimer's Qualified Code(s): G30.1 - Alzheimer's disease with late onset; F02.B18 - Dementia in other diseases classified elsewhere, moderate, with other behavioral disturbance Code(s): F03.90 - Unspecified dementia, unspecified severity, without behavioral disturbance, psychotic disturbance, mood disturbance, and anxiety Status: Acute (10) Psychiatric illness: Code(s): F99 - Mental disorder, not otherwise specified Status: Acute DS: Summary Hospital Course Reason for hospitalization: Profound anemia Occult GI bleeding V-tach Bacteria with pyuria Paroxysmal atrial fibrillation Essential hypertension Congestive heart failure Seizure disorder Dementia Psychiatric illness Hospital Course: 83-year-old female with dementia, seizures, paroxysmal atrial fibrillation on anticoagulation, congestive heart failure, hyperlipidemia, chronic kidney disease stage 3, gastroesophageal reflux disease, hiatal hernia, gastritis, and iron deficiency anemia who presented to the emergency department via EMS from [facility] for evaluation after an unwitnessed fall. Chest x-ray showed increased interstitial pattern in the bilateral lower lung zones most likely mild pulmonary edema. Head CT showed no fracture or acute intracranial process. Patient's hemoglobin was found to be 6.5 and 2 units of packed red blood cells were transfused. Hemoccult stool was positive and patient's Eliquis was placed on hold. 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 While further AVMs could be present in the distal small intestine, a colonoscopy could not be completed due to insufficient bowel prep. Per GI patient is to have another IV iron infusion in 2 weeks and schedule an outpatient colonoscopy to further evaluate a bleeding source. Patient's information has been faxed to [facility] for outpatient IV iron infusion. Prior to discharge patient hemoglobin remains stable. Per cardiology patient was safe to resume her anticoagulation. Prior to resuming patient's Eliquis discussed this with GI and patient's family who were both agreeable with the resuming of the blood thinner. During admission patient was noted to have a UA that was concerning for infection. Urine culture grew E coli with resistance to fluoroquinolones and patient was transitioned to oral antibiotics at that time. Patient's telemetry was reviewed and there was concern for possible run of V-tach. Cardiology was consulted and no evidence of V-tach was noted as tele was primarily showing SVT with aberrant conduction. On day of discharge patient was endorsing right-sided chest pain that was reproducible with palpation. An EKG was obtained and unremarkable as well as troponins within normal limits. Prior to discharge return to patient's room and she denied any chest pain and stated that she felt fine. Patient had no complaints at time of discharge denying chest pain, palpitations, shortness of breath, nausea/vomiting, and abdominal pain. Patient discharged back to her half-way fdc in a stable condition. She is to follow up with her primary care provider in 1 week and GI and Cardiology as scheduled. Status at Discharge Functional status at discharge: independent ambulation Time Spent with Patient Time attestation: Total time spent providing and/or coordinating discharge services: Time spent: Greater than 30 minutes Exam Narrative: AF HR 70 RR 20 SPO2 95 BP 126/57 General: female in no acute respiratory distress who is nontoxic appearing, lying in bed HEENT: Normocephalic. Atraumatic. Extraocular movement intact. Sclera clear and anicteric. No facial asymmetry. Chest: Lungs are clear to auscultation bilaterally. No wheezes or crackles. CV: Heart was regular rate and rhythm. Abd: Abdomen was soft. Nontender. Nondistended. Positive bowel sounds. Ext: No clubbing, cyanosis, or edema. DP pulses bilaterally. Neuro: Patient is alert and oriented x2 (person, place). Speech is clear. DS: Data Data Completed and Pending Completed studies during hospitalization: Head CT Chest x-ray Labs on day of discharge: Labs from last 24 hours 09/06/24 09/06/24 10:35 06:39 WBC 4.7 RBC 3.12 L Hgb 9.3 L Hct 29.9 L MCV 95.8 MCH 29.8 MCHC 31.1 L RDW 15.2 H Plt Count 221 MPV 9.7 Sodium 136 L Potassium 3.9 Chloride 102 Carbon Dioxide 27 Anion Gap 7 BUN 21 H Creatinine 1.10 H Estim Creat Clear Calc 27 Estimated GFR 47 L Glucose 93 Calcium 8.6 Total Bilirubin 0.5 AST 26 ALT 17 Alkaline Phosphatase 81 Troponin I < 0.012 Total Protein 6.0 L Albumin 3.4 L Discharge Plan Discharge Attending physician on discharge: Skye Garcia Consulting providers: Hailey Reyes; Luciana Morton Discharging Clinician: Jeni Loja Anticipated Discharge Date/Time: 09/06/24 13:11 Patient Disposition: NH Shelter/Asst Living Activity: as tolerated Diet: as tolerated and heart healthy Discharge Instructions: Discharge disposition: Patient admitted to the hospital for an unwitnessed fall and noted to have profound anemia Received 2 units blood on arrival, blood levels have remain stable since that time Concern for GI bleed Underwent an EGD on 09/02, plan for outpatient colonoscopy with GI Patient to receive an iron infusion in 2 weeks at the [facility]. Call for updated appointment. Continue eliquis Strict bleeding precautions since you are on eliquis including shaving with an electric razor, holding pressure for greater than 20 minutes for injury, protection of had with any falls, etc. Keep an eye on your stool, should your stool be black or dark purple, you should come back to the hospital Diagnosed with UTI during admission Take medication as prescribed even if feeling better Keflex 500 mg, last dose tonight Keep active to remain strong Avoid use of diapers or pads Good sherie Care every 2 hours Trend urine output Monitor blood pressures Take caution while standing, rising, or moving Change positions slowly taking a break between each position change If you standing feel dizzy sit back down and take a break Encouraged to continue with yearly vaccinations Return to the emergency department if he developed sudden shortness of breath, chest pain, nausea, vomiting, upset stomach or intractable diarrhea Return to the emergency department if you develop fever greater than 101.5 Follow-up with the primary care physician within 1-2 weeks Thank you for choosing [facility] for your healthcare needs Patient Instructions: Antibiotic Form, Cephalexin (By mouth), Apixaban (By mouth), Heart Failure (GEN), Gastrointestinal Bleeding (DC), Blood Thinners (DC) Patient Language: Turkish Stand Alone Forms: General Discharge Information Follow-up/Referrals: Maddy Kemp [Other] - 1 Week Luciana Morton DO [Physician] - Keshav See MD [Physician] - Call for Appointment Discharge Medications: New cephalexin 500 mg Capsule 500 mg PO Q12HR Qty: 1 0RF Continued donepezil 10 mg Tablet 10 mg PO HS cholecalciferol (vitamin D3) 50,000 unit Tablet 50,000 unit PO WEEKLY Patient Comments: MONDAY Rx Instructions: Tuesdays cyanocobalamin (vitamin B-12) 1,000 mcg Capsule 1,000 mcg PO DAILY polyethylene glycol 3350 [Miralax] 17 gram/dose Powder 17 g PO DAILY PRN (Reason: Constipation) Rx Instructions: As needed if no BM in 2 days melatonin 3 mg Tablet 3 mg PO HS levetiracetam [Keppra] 250 mg Tablet 250 mg PO BID duloxetine 60 mg Capsule,Delayed Release(Dr/Ec) 60 mg PO DAILY lamotrigine 100 mg tablet 100 mg PO DAILY fluticasone propionate [Allergy Relief (fluticasone)] 50 mcg/actuation [place],Suspension 2 spray INTRANASAL DAILY Rx Instructions: administer into each nostril cranberry 450 mg Tablet 450 mg PO DAILY Rx Instructions: administer with a meal mirabegron [Myrbetriq] 25 mg Tablet Extended Release 24 Hr 25 mg PO DAILY multivitamin with iron-mineral Tablet 1 tablet PO DAILY pantoprazole 40 mg Tablet,Delayed Release (Dr/Ec) 40 mg PO Q12H lorazepam 0.5 mg tablet 0.5 mg PO TID Qty: 1 0RF acetaminophen 325 mg Tablet 650 mg PO Q4H PRN (Reason: Pain (Scale Score 1-3)) Marisol-Tussin 100 mg/5 mL liquid 5 ml PO Q6H PRN (Reason: Congestion ) potassium chloride [Klor-Con M20] 20 mEq tablet,ER particles/crystals 20 meq PO BID magnesium oxide 400 mg tablet 1 tablet PO DAILY ferrous sulfate 325 mg (65 mg iron) Tablet,Delayed Release (Dr/Ec) 325 mg PO DAILY 30 Days Qty: 30 0RF sennosides-docusate sodium [Senna Plus] 8.6-50 mg Tablet 1 tab-cap PO DAILY Eliquis 5 mg Tablet 5 mg PO Q12HR Qty: 60 0RF diltiazem HCl 120 mg capsule,extended release 24hr 120 mg PO DAILY Qty: 30 0RF furosemide 40 mg Tablet 40 mg PO DAILY Qty: 30 0RF cetirizine [24Hour Allergy] 10 mg tablet 10 mg PO DAILY Date of admission: 09/01/24 13:58 Primary Care Provider: Maddy Kemp Admitting Provider: Wyatt Lagnua Attending physician on admission: Jeni Loja Condition: Stable Hospitalist MIPS Heart Failure (Exclusion) Patient has history of Heart Transplant or Left Ventricular Assistive Device?: No IF YES, STOP HERE Heart Failure (Qualifier) Patient has current or prior documentation of LVEF less than or equal to 40%, or mod/servere depressed LVSF?: No IF NO, STOP HERE
[2024-09-06 15:11] LABS: SARS-CoV-2 RNA PCR Negative (Negative)
== END 2024-09-06 16:42 | DRG 378 ==
LOC: ANHED 11:58 → ANH3MEDSUR 14:30
PROVIDERS: Internal Medicine Gastroenterology; Nurse Practitioner Family; Physician Assistant; Admitting Provider General Practice; Emergency Provider Emergency Medicine; Visit Provider Student in an Organized Health Care Education/Training Program
PROC: 0DJ08ZZ Inspection of Upper Intestinal Tract, Via Natural or Artificial Opening Endoscopic (ICD-10-PCS; principal; 2024-09-02 16:00)
DX: K31.811 Angiodysplasia of stomach and duodenum with bleeding (principal); F02.B18 Dementia in other diseases classified elsewhere, moderate, with other behavioral disturbance; N39.0 Urinary tract infection, site not specified; I13.0 Hypertensive heart and chronic kidney disease with heart failure and stage 1 through stage 4 chronic kidney disease, or unspecified chronic kidney disease; I47.20 Ventricular tachycardia, unspecified; I50.9 Heart failure, unspecified; I48.0 Paroxysmal atrial fibrillation; I35.0 Nonrheumatic aortic (valve) stenosis; N18.30 Chronic kidney disease, stage 3 unspecified; D50.9 Iron deficiency anemia, unspecified; B96.20 Unspecified Escherichia coli [E. coli] as the cause of diseases classified elsewhere; K44.9 Diaphragmatic hernia without obstruction or gangrene; K21.9 Gastro-esophageal reflux disease without esophagitis; E55.9 Vitamin D deficiency, unspecified; E78.5 Hyperlipidemia, unspecified; M81.0 Age-related osteoporosis without current pathological fracture; G30.1 Alzheimer's disease with late onset; G40.909 Epilepsy, unspecified, not intractable, without status epilepticus; F25.0 Schizoaffective disorder, bipolar type; F41.9 Anxiety disorder, unspecified; Z96.642 Presence of left artificial hip joint; Z20.822 Contact with and (suspected) exposure to COVID-19; Z79.01 Long term (current) use of anticoagulants; Z11.52 Encounter for screening for COVID-19
CPT/HCPCS: 36415; 36430; 70450; 71045; 80048; 80053; 81001; 83540; 83550; 83735; 83880; 84484; 85014; 85018; 85025; 85027; 85610; 85730; 86850; 86900; 86901; 86923; 87086; 87186; 87635; 87637; 93005; 96365; 96375; 96376; 97110; 97161; 97165; 97530; 97535; 99285; A9270; G0378; J0696; J1596; J1756; J1953; J2003; J2371; J2470; J2704; J7050; J7120; P9016

== ENCOUNTER 2024-10-11 13:23 | Inpatient (IN) | payer MEDICARE, MEDICAID, SELFPAY ==
[2024-10-11] VITALS (12 sets, daily range): BP systolic 129–149; BP diastolic 40–78; PULSE 87–100; RESP 16–24; TEMP 36.3–36.9; O2SAT 95–100; BMI 27.8
--- NOTE | ~2024-10-11 | CT_ITS ---
EXAMINATION: CT abdomen pelvis w con DATE: 10/11/2024 15:05 INDICATION: ab pain, constipation TECHNIQUE: Computed tomography (CT) of the abdomen and pelvis was performed with 100 mL Omnipaque-350 intravenous contrast. Automated exposure control and iterative reconstruction technique were employe d. The dose-length product was 937.46 mGy-cm. COMPARISON: 06/29/2024. FINDINGS: Exam limited by motion artifact and beam hardening from arm down positioning. Lower thorax: Dependent atelectasis. Mild cardiomegaly. Aortic valve and coronary artery calcificatio ns. Moderate hiatal hernia. Mildly patulous and fluid-filled distal esophagus. Liver: Normal. Biliary/Gallbladder: Gallbladder is normal. No bile duct dilation. Pancreas: No mass or duct dilation. Spleen: Normal. Adrenals:Stable indeterminate density left adrenal lesion, likely adenoma. Kidneys: No suspicious mass, obstructing stone, or hydronephrosis. Exophytic left lower pole renal cy st. Subcentimeter right renal hypodensities too small to characterize but most likely represent cysts . Excreted contrast in the collecting systems. GI tract: The rectum is mildly distended by formed stool measuring up to 6.1 cm. No small bowel dilat ion. Appendix not confidently visualized. Diverticulosis without diverticulitis. Mesentery/Peritoneum: No ascites, mass, or free air. Retroperitoneum: No mass. Pelvis: The urinary bladder is mostly empty. Chronic soft tissue thickening and calcification inferio r to the bladder, may secondary to stones within a urethral diverticulum and/or prostatectomy change. Pelvic contents partially obscured by metal artifact from a partially visualized, uncomplicated appe aring left hip arthroplasty. Old right pelvic fractures. Soft Tissues: Soft tissues and body wall unremarkable. Bones: No acute osseous finding. Stable multilevel compression deformities, including a chronic nazanin re burst fracture with vertebroplasty cement at L1. IMPRESSION: Possible mild fecal impaction. No CT findings of stercoral colitis. Otherwise, no acute abdominopelvic process detected. Reviewed, dictated and finalized at location K.
--- NOTE | ~2024-10-11 | CT_ITS ---
CT head without contrast Indication: Altered mental status COMPARISON: 10/11/2024 Technique: Serial scans were obtained through the brain without the administration of contrast. Dose reduction technique was used on this scan by utilizing automated exposure control and iterative recon struction technique. The dose-length product (DLP) was 605.33 mGy-cm. Findings: There is no evidence of intracranial hemorrhage, mass lesion, or acute infarct. The ventri cles and subarachnoid spaces are dilated, consistent with moderate atrophy. Low attenuation regions are seen within the periventricular white matter bilaterally, likely representing changes from chroni c microvascular ischemic disease. There is no evidence of edema, mass effect or midline shift. The visualized paranasal sinuses and mastoid air cells are clear. Impression: No intracranial hemorrhage, mass, or acute infarct. Atrophy and chronic white matter changes, as above. Reviewed, dictated and finalized at location . Impression: No intracranial hemorrhage, mass, or acute infarct. Atrophy and chronic white matter changes, as above.
--- NOTE | ~2024-10-11 | MR_ITS ---
EXAMINATION: MR brain/brain stem wo/w con DATE: 10/14/2024 15:03 INDICATION: CVA, slurred speech TECHNIQUE: Magnetic resonance imaging (MRI) of the brain and brainstem was performed without and with 14 mL ProHance intravenous contrast. Sequences included sagittal and axial T1-weighted SE, axial dif fusion-weighted FS EPI ASSET, axial T2*-weighted GRE, axial T2-weighted FLAIR Propeller, and axial T2 -weighted Propeller. Postcontrast axial and coronal T1-weighted SE was obtained. Apparent diffusion c oefficient (ADC) maps were created. COMPARISON: CTA brain carotid 10/11/2024 FINDINGS: Mild motion artifact on multiple sequences. No abnormal restricted diffusion to suggest acute ischemi c infarct. Multiple surgical old bilateral cerebellar infarcts. Left temporoparietal encephalomalacia , extending to the left insula. No MRI evidence of hemorrhage or extra-axial collection. Punctate yanely ceptibility artifact in the right kat and left anterior cerebellum, likely representing small foci o f microhemorrhage. 5 mm focus of ringlike susceptibility in the right occipital lobe, likely represen ting prior intraparenchymal hemorrhage. Moderate patchy white matter hyperintensity, likely represent ing moderate small vessel ischemic disease. Mild generalized parenchymal volume loss. The basilar cis terns are patent. Flow voids are preserved. Minimal fluid signal in the left mastoid air cells, the r emaining aerated spaces are clear. Globes and orbital contents are within normal limits. IMPRESSION: No acute intracranial process. Reviewed, dictated and finalized at location K.
--- NOTE | ~2024-10-11 | XR_ITS ---
EXAMINATION: XR chest 1V portable 10/11/2024 15:22 INDICATION: Altered mental status PROCEDURE: AP portable chest COMPARISON: Comparison to multiple prior studies sequentially, with oldest reviewed study dated 09/17. FINDINGS: The lungs are clear. The cardiomediastinal silhouette is within normal limits. There are no pleural effusions. There is no pneumothorax suspected. IMPRESSION: 1: NO ACUTE CARDIOPULMONARY DISEASE. Reviewed, dictated and finalized at location A.
--- NOTE | ~2024-10-11 | XR_ITS ---
Portable chest x-ray Comparison: 10/11/2024 Clinical History: Cough Findings: Lungs are clear, without focal consolidation or pleural effusion. Cardiomediastinal silho uette is stable. Bones and soft tissues are unremarkable. Impression: Clear lungs. Reviewed, dictated and finalized at location . Impression: Clear lungs.
--- NOTE | ~2024-10-11 | XR_ITS ---
MODIFIED ESOPHAGRAM HISTORY: Cuffing with meals TECHNIQUE: Modified barium esophagram was performed on 10/21/2024. I administered fluoroscopy and perf ormed the exam with speech pathologist. Patient was seated for lateral fluoroscopic imaging for john stion of thin liquids, pudding, solids and quantified amounts, followed by thin liquids in uncontroll ed amounts. This was recorded on tape. A single fluoroscopic spot image was also recorded. The DAP fo r this procedure was 0.984 Gycm2. The amount of fluoroscopy time used during this procedure was 1.8 m inutes. FINDINGS: Oral stage: Adequate function. Pharyngeal stage: Trace vallecular residue with cracker and pudding which cleared with liquid or a se cond swallow. No laryngeal penetration or aspiration. Cervical/esophageal stage: Adequate function. IMPRESSION: Patient tolerated regular consistency oral feedings in the upright position. Please rajni elate with speech pathologist findings and specific feeding recommendations. Reviewed, dictated and finalized at location A. IMPRESSION: Patient tolerated regular consistency oral feedings in the upright position. Please correlate with speech pathologist findings and specific feedi ng recommendations.
--- NOTE | ~2024-10-11 | CT_ITS ---
CT Scan of the Chest without Contrast: Clinical Indication: Hypoxia, pneumonia Technique: Contiguous sections were acquired throughout the chest without intravenous contrast. Dose reduction technique was used on this scan by utilizing automated exposure control and iterative recon struction technique. The dose-length product (DLP) was 209.71 mGy-cm. COMPARISON: 05/26/2024 Findings: There is no evidence of any significant mediastinal, hilar or axillary lymphadenopathy. The mediastin al soft tissues appear normal. There is no evidence of pleural or pericardial effusion. There is extensive right lower lobe consolidation. There is minimal involvement in the posterior righ t upper lobe. Left lung clear. Images through the upper abdomen reveal moderate hiatal hernia. Vertebroplasty of L1 present. There are additional compression fractures at T5, T6, T8, T9, T11, T12, and L2. Impression: Extensive right lower lobe pneumonia with more mild patchy involving the posterior right upper lobe. Numerous compression fractures in the spine, as detailed above. Moderate hiatal hernia. Reviewed, dictated and finalized at [facility]. 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 Numerous compression fractures in the spine, as detailed above. Moderate hiatal hernia.
--- NOTE | ~2024-10-11 | XR_ITS ---
EXAMINATION: XR abdomen/kub 1V DATE: 10/15/2024 13:14 INDICATION: Evaluate for obstruction/constipation TECHNIQUE: Supine and upright views of the abdomen. FINDINGS: CT dated 10/11/2024 The visualized lung parenchyma is normal.. There is a nonobstructive bowel gas pattern. Large amount of retained fecal material in the colon and rectum. Gas and stool are seen throughout the colon to th e level of the rectum. There is no free air. There is a left total hip arthroplasty. There are verte broplasty changes in the upper lumbar spine. There are healed right pubic rami fractures. IMPRESSION: 1. Fecal impaction of the colon and rectum. No obstruction. Reviewed, dictated and finalized at location B.
--- NOTE | ~2024-10-11 | CT_ITS ---
EXAMINATION: CTA BRAIN/CAROTID DATE: 10/11/2024 15:06 INDICATION: Stroke with altered mental status. TECHNIQUE: Computed tomographic angiography (CTA) of the head and neck was performed with 100 mL Omni paque-350 intravenous contrast. Multiplanar reconstructions and maximum intensity projection 3D-recon structions of the carotid arteries and of the intracranial arteries were created by the technologist on a separate workstation. Precontrast CT of the head was also obtained. Automated exposure control and iterative reconstruction technique were employed.The dose-length product was 2193.27 mGy-cm. COMPARISON: Head CT dated 08/31/2024 and brain MR dated 05/26/2024 FINDINGS: Carotid arteries: Atherosclerotic calcification without hemodynamically significant stenosis along the normal caliber a ortic arch with no dissection. There is normal variant retroesophageal aberrant right subclavian shola ry with atherosclerotic plaque resulting in 60% stenosis at its origin. Mild, less than 50% stenosis at the origin of the dominant right vertebral artery. No evident stenosis along the extracranial cour se of the diminutive left vertebral artery. There is mild, <50% stenosis at the origin of the left [place] bclavian artery. There is 40% stenosis of the right carotid bulb relative to normal distal artery lum en diameter (NASCET criteria). There is 30% stenosis of the distal left carotid bulb relative to norm al distal artery lumen diameter. There is atelectasis in the visualized upper lungs likely related to expiratory phase of imaging with concave posterior margin of the trachea and left mainstem bronchus. There is reflux versus residual fluid in the mildly patulous upper thoracic esophagus. Cervical soft tissues are unremarkable. Moderate to severe lower cervical predominant spondylosis with multifocal mild central canal the bilateral neural foraminal stenosis. Head: Regions of encephalomalacia consistent with chronic infarct, small at the anterior left insula, moder ate sized at the posterior insula extending cephalad into the left parietal lobe in a couple left and right cerebellar hemispheres. No acute intracranial hemorrhage, acute infarction or abnormal extra a xial fluid collection. There is moderate scattered white matter hypoattenuation consistent with chron ic small vessel ischemic disease. Symmetric prominence of the sulci and ventricles consistent with mi ld to moderate age-appropriate diffuse cerebral volume loss. No mass/mass effect. No abnormally enhan cing brain lesions on the postcontrast imaging. The orbits and mastoid air cells are normal. Mild muc operiosteal thickening the bilateral ethmoid and maxillary sinuses. Intracranial arteries The right vertebral artery is dominant with diminutive left vertebral artery. Small amount of nonhemo dynamically significant atherosclerotic plaque along the dominant right vertebral artery. There is at herosclerotic plaque at the bilateral carotid siphons with <50% stenosis. There is no hemodynamically significant stenosis in the vertebral, basilar and internal carotid arteries. Both A1 segments are p atent. There are diminutive bilateral P1 segments with the majority of flow to the bilateral posterio r cerebral artery supplied from the internal carotid arteries and patent bilateral posterior communic ating arteries. There are no aneurysms identified. Cerebral arterial arborization appears symmetric. IMPRESSION: 1. 40% stenosis of the right carotid bulb relative to normal distal artery lumen diameter (NASCET cri teria). 2. 40% stenosis of the left carotid bulb relative to normal distal artery lumen diameter. 3. 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 4. 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 No acute intracranial process or abnormally enhancing brain lesions. 5. Cerebral CT angiogram demonstrates no hemodynamically significant stenosis, aneurysm or thrombosis . Of note the majority of flow to the posterior cerebral arteries appears to be supplied from the gita ateral internal carotid arteries via patent bilateral posterior communicating arteries which are sign ificantly larger than the diminutive bilateral P1 segments. Reviewed, dictated and finalized at location A. IMPRESSION: 1. 40% stenosis of the right carotid bulb relative to normal distal artery lume n diameter (NASCET criteria). 2. 40% stenosis of the left carotid bulb relative to normal distal artery lumen diameter. 3. 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 4. 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 No acute intracranial process or abnormally enhancing brain lesio ns. 5. Cerebral CT angiogram demonstrates no hemodynamically significant stenosis, aneurysm or thrombosis. Of note the majority of flow to the posterior cerebral arteries appears to be supplied from the bilateral internal carotid arteries vi a patent bilateral posterior communicating arteries which are significantly lar tanja than the diminutive bilateral P1 segments.
--- OUTSIDE RECORDS SUMMARY | 2024-10-11 13:24 | XMS_ITS | Referral Summary ---
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 Gender Identity Not on file Sexual Orientation [...] P M CDT Height 160 cm (5' 2.99) 02/15/2024 1:50 PM CDT Body Mass Index 25.35 02/15/2024 1:50 PM CDT Plan of Treatment Not on file Insurance [facility] [place] [id number] [facility]UE [facility] MEDIC[facility] ADVANTAGE [employer] [place] [id number] [facility] MEDIC[facility] ADV[facility]AGE Advance Directives For more information, please contact: [phone] Documents on File Type Date Recorded 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
--- OUTSIDE RECORDS SUMMARY | 2024-10-11 13:24 | XMS_ITS | Clinical Summary ---
Author Organization [facility] Address [address] [place] [address] Care Team Providers Care Air Analysis Technician Name Role Phone Trudy Abernathy MD Primary Care Provider [phone] Source Comments [facility] Affiliates and Associated Physician Practices is amultiple site organization consisting of ambulatory clinics and hospital sitesin [place], [place], [place] and [place]. This disclosure is being madepursuant to the Care Everywhere program and may not contain all information available regarding this patient. 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
--- OUTSIDE RECORDS SUMMARY | 2024-10-11 13:24 | XMS_ITS | Clinical Summary ---
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 Gender Identity Not on file Sexual Orientation [...] (2 of 3) 01/12/2012 11/17/2011 Influenza Vaccine (Season Ended) 2025 02/16/2016, 03/06/2015, 03/05/2015, Additional history exists DTaP/Tdap/Td Vaccine (3 - Td or Tdap) 08/03/2027 08/02/2017, 03/07/2012 Pneumococcal vaccine 65+ Completed 016, 06/24/2014, 06/24/2014, Additional history exists Insurance IDPA [facility] MEDICARE ADVANTAGE [facility] MEDICARE ADVANTAGE [place] [address] UHC MEDICARE ADVANTAGE Advance Directives For more information, please contact: [phone] Documents on File Type Date Recorded Patient Multi Media Specialist Expl anation ADVANCE DIRECTIVE 08/04/2017 12:00 AM DNR * Full Code (Latest Code Status on File) Date Activated Date Inactivated Comments 09/19/2018 7:50 PM 09/27/2018 11:22 PM Care Teams Storage Architect Relationship Specialty Start Date End Date Pavan Martinez MD [address] [place] [address] [address] [place] [id number] PCP - General Emergency Medicine 06/27/19 Last De Jesus DO [address] [place] [address] [address] [place] [id number] Cardiovascular Disease 09/27/18
--- OUTSIDE RECORDS SUMMARY | 2024-10-11 13:24 | XMS_ITS | CONTINUITY OF CARE DOCUMENT ---
Author Name juliennecarlos elvin Address Unknown Organization [facility] Office Address [address] [place] [address] Phone [phone] Care Team Providers Care Marketing Director Assisted Living Name Role Phone Guilherme Ruvalcaba MD Unavailable [phone] PATRICE SANDERS MD Unavailable PATRICE SANDERS MD Unavailable PROBLEMS Condition Status Date Provider Notes Palpitations active Rolando Pelayo INSURANCE PROVIDERS Payer name Policy type / Coverage type Glenn red green party ID [facility] [id number] [place] Medicare [id number] HISTORY OF PROCEDURES Procedure Date Procedure Name Provider Procedure Notes S tatus Event Monitor Rolando Pelayo completed
--- OUTSIDE RECORDS SUMMARY | 2024-10-11 13:24 | XMS_ITS | Encounter Summary ---
Author Organization [facility] Address [address] [facility] [address] [place] [address] Care Team Providers Care Homicide Squad Commanding Officer Name Role Phone Cindy Abernathy MD Primary Care Provider [phone] Cindy Abernathy MD Primary Care Provider [phone] Mary Bonilla RN Unavailable [phone] Marlin Rebolledo RN Unavailable [phone] Charanjit Ace MD Primary Care Provider [phone] Last De Jesus DO Unavailable [phone] Pavan Martinez MD Primary Care Provider Светлана vailable Encounter Details Date Type Department Care Team (Late st Contact Info) Description 07/08/2016 Orders Only [facility] Provider, MD Bola [address] [place] [id number] Social History Tobacco Use Types Packs/Day Years Used Date Smoking Tobacco: Former Cigarettes Q uit: 05/08/1964 Alcohol Use Standard Drinks/Week Comments No 0 (1 standard drink = 0.6 oz pur e alcohol) Comments Unknown Sex and Gender Information Value Date Recorded Sex Assigned at Not on file 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 Gender Identity Not on file Sexual [...] on filedocumented in this encounter Care Teams Homicide Squad Commanding Officer Relationship Specialty Start Date End Date Cindy Abernathy MD PCP - General 08/05/16 09/05/18 Cindy Abernathy MD PCP - General 06/21/16 08/04/16 Charanjit Ace MD [address] [facility] [address] [place], [place] [id number] PCP - General Internal Medicine 09/06/18 06/26/19 Pavan Martinez MD [address] [place] [address] [address] [place] [address], [place] [address] PCP - General Emergency Medicine 06/27/19 Mary Bonilla, CATRINA [address] [facility] [address] [place] [id number] Senior Accounts Payable Specialist 10/13/16 11/14/16 Marlin Rebolledo, CATRINA [address] [facility] [address] [place], [place] [id number] Senior Accounts Payable Specialist 07/24/17 07/24/17 Last De Jesus DO [address] [place] [address] [address] [place] [address] Cardiovascular Disease 09/27/18 documented as of this encounter
--- NOTE | 2024-10-11 13:29 | ECG_ITS ---
Test Date: 2024-10-11 13:50:30 Measurements Intervals [place] Rate: 83 P: 10 WV: 152 QRS: 4 QRSD: 130 T: 68 QT: 394 QTc: 463 Interpretive Statements SINUS RHYTHM LEFT BUNDLE BRANCH BLOCK BASELINE ARTIFACT- I, III, AVR, AVL, AVF ABNORMAL ECG Compared to ECG 09/06/2024 10:23:12 No significant changes Electronically Signed On 10-11-2024 14:04:29 CDT by Vladimir Sosa D.O.
--- NOTE | 2024-10-11 13:32 | ED_ITS ---
HPI - Abdominal Pain General Chief Complaint: Abdominal Pain <Roselia Gallegos APRN - Last Filed: 10/14/24 19:09> Stated Complaint: abd pain <Roselia Gallegos APRN - Last Filed: 10/14/24 19:09> Time Seen by Provider: 10/11/24 13:30 <Roselia Gallegos APRN - Last Filed: 10/14/24 19:09> Focused HPI: Patient is an 83-year-old female who presents to the ER via EMS with complaints of abdominal pain. She reports the pain started last night. Patient also endorses nausea and vomiting. She believes she still has her gallbladder, appendix, and uterus. Patient denies any chest pain, recent fevers or shortness of breath. She is a poor historian of her medical history. GENERAL: Well-appearing, well-nourished, and in no acute distress. HEAD: Normocephalic, atraumatic. CHEST: Clear to auscultation. ?No respiratory distress. HEART: Regular rate and rhythm.? NEURO: ?Alert and oriented x3. Patient screened in triage and initial orders placed.? ?Additional care and disposition to be based upon?diagnostic testing and treatment. <Roselia Gallegos APRN - Last Filed: 10/14/24 19:09> History of Present Illness HPI narrative: I agree with the above HPI <Angelo Han MD - Last Filed: 10/18/24 07:16> Related Data Home Medications: Home Medications ?Medication ?Instructions ?Recorded ?Confirmed ?Last Taken ?Type cholecalciferol (vitamin D3) 1,250 50,000 unit PO WEEKLY 03/20/19 10/11/24 03/28/22 History mcg (50,000 unit) tablet donepezil 10 mg tablet 10 mg PO HS 03/20/19 10/11/24 03/19/19 History polyethylene glycol 3350 17 17 g PO DAILY PRN Constipation 03/20/19 10/11/24 03/20/19 History gram/dose oral powder (Miralax) duloxetine 60 mg capsule,delayed 60 mg PO DAILY 07/16/21 10/11/24 Unknown History release lamotrigine 100 mg tablet 100 mg PO DAILY 07/16/21 10/11/24 Unknown History levetiracetam 250 mg tablet 250 mg PO BID 07/16/21 10/11/24 Unknown History (Keppra) melatonin 3 mg tablet 3 mg PO HS 07/16/21 10/11/24 Unknown History fluticasone propionate 50 2 spray intranasal DAILY 04/05/22 10/11/24 Unknown History mcg/actuation nasal spray,suspension (Allergy Relief (fluticasone)) mirabegron 25 mg tablet,extended 25 mg PO DAILY 04/05/22 10/11/24 Unknown History release 24 hr (Myrbetriq) Marisol-Tussin 5 ml PO Q6H PRN Congestion 09/13/22 10/11/24 Unknown History acetaminophen 325 mg tablet 650 mg PO Q4H PRN Pain (Scale 09/13/22 10/11/24 Unknown History Score 1-3) magnesium oxide 1 tablet PO DAILY 09/13/22 10/11/24 Unknown History sennosides 8.6 mg-docusate sodium 1 tab-cap PO DAILY 06/06/23 10/11/24 Unknown History 50 mg tablet (Senna Plus) multivitamin with iron-mineral 1 tablet PO DAILY 08/31/24 10/11/24 Unknown History pantoprazole 40 mg tablet,delayed 40 mg PO Q12H 08/31/24 10/11/24 Unknown History release amlodipine 5 mg tablet 5 mg PO DAILY 10/11/24 10/11/24 Unknown History <Roselia Gallegos APRN - Last Filed: 10/14/24 19:09> Allergies/Adverse Reactions: Allergies Allergy/AdvReac Type Severity Reaction Status Date / Time sertraline Allergy Severe Unknown Verified 10/12/24 11:43 hydromorphone Allergy Intermediate Unknown Verified 10/12/24 11:43 <Roselia Gallegos [employer] - Last Filed: 10/14/24 19:09> Review of Systems 2 Review of Systems: All systems reviewed & are unremarkable except as noted in HPI and below <Angelo Han MD - Last Filed: 10/18/24 07:16> FORMERLY [facility], [facility] Past Medical History Medical History: Medical History (Updated 10/17/24 @ 13:13 by Mark Davis MD) 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 admitted with HGB 9.9 with downward trend, currently 5.9 receiving 2 units packed cells. 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, 2019 Thoracic compression fracture T10 Essential hypertension Osteoporosis Frequent urinary tract infections history of ESBL E coli infection March 2018 Seizure disorder Schizoaffective disorder Hyperlipidemia Depression Dementia Paroxysmal atrial fibrillation <Roselia Gallegos APRN - Last Filed: 10/14/24 19:09> Surgical History Surgical History: Surgical History History of arthroscopy of left shoulder History of total left hip arthroplasty (2015) History of bladder suspension procedure History of hysterectomy <Roselia Gallegos, [employer] - Last Filed: 10/14/24 19:09> Family History Family History: Family History Sibling Dementia Cerebrovascular accident Sibling Acute myocardial infarction Mother Cirrhosis Father Emphysema of lung <Roselia Gallegos, [employer] - Last Filed: 10/14/24 19:09> Social History Social History: Social History (Updated 10/11/24 @ 23:13 by Magaly Bermudez DO) Social History: Surrogate medical decision maker: Cameron Naranjo. Code status: DNR/DNI Smoking packs per day: 1 Smoking cigarettes per day: 20.0 Years smoked: 10 Smoking pack-years: 10.00 Smoking status: Former smoker Second hand tobacco smoke exposure: No Alcohol intake: never Substance use: never Substance use type: does not use Do You Feel Safe in your Home?: Yes Lack of Transportation: No Lack of Food: Never True Current Housing: I Have Housing Concerned About Future Housing: No Difficulty Paying Gas/Electric Bills: No Difficulty Paying for Meds: No Currently Unemployed: No Education: Grade School Difficulty w/ Childcare or Family Care: No Additional living arrangements comments: . Resident at [facility]. 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: No Agree to blood products: Yes <Roselia Gallegos APRN - Last Filed: 10/14/24 19:09> Exam 2 Narrative: APPEARANCE: Well appearing, no pain, no distress, well-nourished. HEAD: normocephalic, atraumatic. EYES: PERRLA/EOMI, conjunctivae clear. NOSE: Normal no drainage EARS:TMS clear with good light reflex. THROAT: Pharynx clear, no exudate. NECK: Supple. No adenopathy, no masses. RESPIRATORY: Airway patent, respirations nonlabored. Clear to auscultation bilaterally, no rales, rhonchi, wheezing. CARDIOVASCULAR: Regular rate and rhythm without murmurs rubs or gallops. ABDOMINAL: Soft, nontender, nondistended, normal bowel sounds MUSCULOSKELETAL: Moves all extremities. Strength/ROM intact, No edema, No calf tenderness. NEURO: Slurred speech SKIN: Warm, dry. Normal Color <Angelo Han MD - Last Filed: 10/18/24 07:16> Course Vital Signs Vital signs: Vital Signs Temperature 97.4 F L 10/11/24 13:24 Pulse Rate 87 10/11/24 13:24 Respiratory Rate 18 10/11/24 13:24 Blood Pressure 135/49 L 10/11/24 13:24 Pulse Oximetry 97 10/11/24 13:24 Oxygen Delivery Room Air 10/11/24 13:24 Temperature 98.4 F 10/18/24 07:00 Pulse Rate 65 10/18/24 07:00 Respiratory Rate 18 10/18/24 07:00 Blood Pressure 154/60 H 10/18/24 07:00 Pulse Oximetry 96 10/18/24 07:00 Oxygen Delivery Room Air 10/17/24 08:00 Oxygen Flow Rate 3 10/11/24 22:05 Fraction of Inspired Oxygen 21 10/16/24 19:50 <Roselia Gallegos APRN - Last Filed: 10/14/24 19:09> Vital Signs Temperature 97.4 F L 10/11/24 13:24 Pulse Rate 87 10/11/24 13:24 Respiratory Rate 18 10/11/24 13:24 Blood Pressure 135/49 L 10/11/24 13:24 Pulse Oximetry 97 10/11/24 13:24 Oxygen Delivery Room Air 10/11/24 13:24 Temperature 98.4 F 10/18/24 07:00 Pulse Rate 65 10/18/24 07:00 Respiratory Rate 18 10/18/24 07:00 Blood Pressure 154/60 H 10/18/24 07:00 Pulse Oximetry 96 10/18/24 07:00 Oxygen Delivery Room Air 10/17/24 08:00 Oxygen Flow Rate 3 10/11/24 22:05 Fraction of Inspired Oxygen 21 10/16/24 19:50 <Angelo Han MD - Last Filed: 10/18/24 07:16> MDM - Abdominal Pain MDM Narrative Medical decision making narrative: 83-year-old female presents emergency department for evaluation for a ground level fall some constipation and some slurred speech. states that the patient's speech has been slurred worse than he saw her on Monday. Patient did have some increase slurred speech but no other focal deficit on her exam. CTA did have multiple areas of stenosis but not of Davis were acute in no acute infarct. I discussed the case with Neurology and patient will be admitted for further evaluation. CT scan did show some fecal impaction. Case was discussed with hospitalist patient was accepted for admission for further evaluation. <Angelo Han MD - Last Filed: 10/18/24 07:16> Differential Diagnosis Differential diagnosis: Likely abdominal pain, acute appendicitis, calculus of kidney, constipation, diverticulitis, gastroenteritis and small bowel obstruction <Angelo Han MD - Last Filed: 10/18/24 07:16> Lab Data Result diagrams: 10/18/24 05:44 10/18/24 05:44 <Roselia Gallegos APRN - Last Filed: 10/14/24 19:09> Labs: Lab Results 10/11/24 10/11/24 10/11/24 Range/Units 13:43 14:12 14:41 WBC 9.5 (4.5-10.0) K/mm3 RBC 2.91 L (4.2-5.4) M/mm3 Hgb 8.7 L (12.0-15.0) g/dL Hct 28.8 L (37.0-47.0) % MCV 99.0 (80-100) fl MCH 29.9 (26-34) pg MCHC 30.2 L (32-36) g/dl RDW 16.2 H (11.5-14.5) % Plt Count 296 (150-375) k/mm3 MPV 9.4 (7.4-10.4) fl Immature Gran % (Auto) 0.6 H (0-0.5) % Neut % (Auto) 82.0 H (45.5-73.1) % Lymph % (Auto) 11.9 L (18.3-44.2) % Sharp % (Auto) 5.0 (2.6-8.5) % Eos % (Auto) 0.3 (0-4.4) % Baso % (Auto) 0.2 (0.2-1.2) % Lymph # (Auto) 1.14 (0.9-3.2) K/mm3 Sharp # (Auto) 0.5 (0.1-0.6) K/mm3 Eos # (Auto) 0.0 (0-0.3) K/mm3 Baso # (Auto) 0.0 (0.0-0.1) K/mm3 Abs Immat Gran (auto) 0.06 H (0.00-0.031) K/mm3 Absolute Neuts (auto) 7.8 H (1.3-6.7) K/mm3 Absolute Nucleated RBC 0.020 H (0.0-0.012) K/mm3 Nucleated RBC % 0.2 (0.0-0.2) % PT 18.5 H (11.1-14.7) Seconds INR 1.5 APTT 33.7 (22.3-36.8) Seconds Sodium 141 (137-145) mmol/L Potassium 4.2 (3.4-5.0) mmol/L Chloride 109 H (98-107) mmol/L Carbon Dioxide 22 (22-30) mmol/L Anion Gap 10 (4-12) mmol/L BUN 47 H D (7-17) mg/dL Creatinine 1.01 H (0.7-1.0) mg/dL Estim Creat Clear Calc Not Reportable Estimated GFR 52 L (59 - ) Glucose 99 (65-110) mg/dL POC Capillary Glucose (65-105) mg/dl Calcium 9.2 (8.4-10.2) mg/dL Magnesium (1.6-2.3) mg/dL Iron (37-170) ug/dL TIBC (261-462) ug/dL % Saturation (20-50) % Ferritin (11.1-264) ng/mL Total Bilirubin 0.4 (0.2-1.3) mg/dL AST 24 (14-36) U/L ALT 13 (6-35) U/L Alkaline Phosphatase 69 (38-126) U/L Total Protein 6.5 (6.3-8.2) g/dL Albumin 3.9 (3.5-5.1) g/dL Lipase 240 (23-300) U/L Vitamin B12 (239-931) pg/mL Folate (2.76->20) ng/mL RBC Folate Procalcitonin ng/mL Urine Color Yellow (Yellow) Urine Appearance Clear (Clear) Urine pH 5.5 (5.0-9.0) Ur Specific [place] 1.015 (1.001-1.035) Urine Protein Negative (Negative) mg/dL Urine Glucose (UA) Negative (Negative) mg/dL Urine Ketones Negative (Negative) mg/dL Ur Blood (Man) Trace-intact H (Negative) Urine Nitrate Negative (Negative) Urine Bilirubin Negative (Negative) Urine Urobilinogen 0.2 (<2.0) mg/dL Leukocyte Esterase Rfl Negative (Negative) JOVANY/UL Influenza A (RT-PCR) Negative (Negative) Influenza B (RT-PCR) Negative (Negative) RSV (RT-PCR) Negative (Negative) SARS-CoV-2 RNA (RT-PCR) Negative (Negative) Blood Type Antibody Screen Crossmatch 10/11/24 10/12/24 10/12/24 Range/Units 22:05 04:35 04:45 WBC 14.8 H (4.5-10.0) K/mm3 RBC 2.11 L (4.2-5.4) M/mm3 Hgb 6.3 L* (12.0-15.0) g/dL Hct 21.6 L (37.0-47.0) % MCV 102.4 H (80-100) fl MCH 29.9 (26-34) pg MCHC 29.2 L (32-36) g/dl RDW 16.4 H (11.5-14.5) % Plt Count 270 (150-375) k/mm3 MPV 9.9 (7.4-10.4) fl Immature Gran % (Auto) (0-0.5) % Neut % (Auto) (45.5-73.1) % Lymph % (Auto) (18.3-44.2) % Sharp % (Auto) (2.6-8.5) % Eos % (Auto) (0-4.4) % Baso % (Auto) (0.2-1.2) % Lymph # (Auto) (0.9-3.2) K/mm3 Sharp # (Auto) (0.1-0.6) K/mm3 Eos # (Auto) (0-0.3) K/mm3 Baso # (Auto) (0.0-0.1) K/mm3 Abs Immat Gran (auto) (0.00-0.031) K/mm3 Absolute Neuts (auto) (1.3-6.7) K/mm3 Absolute Nucleated RBC (0.0-0.012) K/mm3 Nucleated RBC % (0.0-0.2) % PT (11.1-14.7) Seconds INR APTT (22.3-36.8) Seconds Sodium 141 (137-145) mmol/L Potassium 4.1 (3.4-5.0) mmol/L Chloride 114 H (98-107) mmol/L Carbon Dioxide 20 L (22-30) mmol/L Anion Gap 7 (4-12) mmol/L BUN 53 H (7-17) mg/dL Creatinine 0.85 (0.7-1.0) mg/dL Estim Creat Clear Calc 40 Estimated GFR > 60 (59 - ) Glucose 100 (65-110) mg/dL POC Capillary Glucose 125 H (65-105) mg/dl Calcium 8.7 (8.4-10.2) mg/dL Magnesium 2.1 (1.6-2.3) mg/dL Iron 93 (37-170) ug/dL TIBC 327 (261-462) ug/dL % Saturation 28 (20-50) % Ferritin 18.40 (11.1-264) ng/mL Total Bilirubin (0.2-1.3) mg/dL AST (14-36) U/L ALT (6-35) U/L Alkaline Phosphatase (38-126) U/L Total Protein (6.3-8.2) g/dL Albumin (3.5-5.1) g/dL Lipase (23-300) U/L Vitamin B12 234.0 L (239-931) pg/mL Folate 7.2 (2.76->20) ng/mL RBC Folate Procalcitonin 0.2 ng/mL Urine Color (Yellow) Urine Appearance (Clear) Urine pH (5.0-9.0) Ur Specific [place] (1.001-1.035) Urine Protein (Negative) mg/dL Urine Glucose (UA) (Negative) mg/dL Urine Ketones (Negative) mg/dL Ur Blood (Man) (Negative) Urine Nitrate (Negative) Urine Bilirubin (Negative) Urine Urobilinogen (<2.0) mg/dL Leukocyte Esterase Rfl (Negative) JOVANY/UL Influenza A (RT-PCR) (Negative) Influenza B (RT-PCR) (Negative) RSV (RT-PCR) (Negative) SARS-CoV-2 RNA (RT-PCR) (Negative) Blood Type Antibody Screen Crossmatch 10/12/24 10/12/24 Range/Units 06:22 06:27 WBC 15.9 H (4.5-10.0) K/mm3 RBC 1.93 L (4.2-5.4) M/mm3 Hgb 5.9 L* (12.0-15.0) g/dL Hct 20.5 L* (37.0-47.0) % MCV 106.2 H (80-100) fl MCH 30.6 (26-34) pg MCHC 28.8 L (32-36) g/dl RDW 16.7 H (11.5-14.5) % Plt Count 237 (150-375) k/mm3 MPV 9.8 (7.4-10.4) fl Immature Gran % (Auto) (0-0.5) % Neut % (Auto) (45.5-73.1) % Lymph % (Auto) (18.3-44.2) % Sharp % (Auto) (2.6-8.5) % Eos % (Auto) (0-4.4) % Baso % (Auto) (0.2-1.2) % Lymph # (Auto) (0.9-3.2) K/mm3 Sharp # (Auto) (0.1-0.6) K/mm3 Eos # (Auto) (0-0.3) K/mm3 Baso # (Auto) (0.0-0.1) K/mm3 Abs Immat Gran (auto) (0.00-0.031) K/mm3 Absolute Neuts (auto) (1.3-6.7) K/mm3 Absolute Nucleated RBC (0.0-0.012) K/mm3 Nucleated RBC % (0.0-0.2) % PT (11.1-14.7) Seconds INR APTT (22.3-36.8) Seconds Sodium (137-145) mmol/L Potassium (3.4-5.0) mmol/L Chloride (98-107) mmol/L Carbon Dioxide (22-30) mmol/L Anion Gap (4-12) mmol/L BUN (7-17) mg/dL Creatinine (0.7-1.0) mg/dL Estim Creat Clear Calc Estimated GFR (59 - ) Glucose (65-110) mg/dL POC Capillary Glucose (65-105) mg/dl Calcium (8.4-10.2) mg/dL Magnesium (1.6-2.3) mg/dL Iron (37-170) ug/dL TIBC (261-462) ug/dL % Saturation (20-50) % Ferritin (11.1-264) ng/mL Total Bilirubin (0.2-1.3) mg/dL AST (14-36) U/L ALT (6-35) U/L Alkaline Phosphatase (38-126) U/L Total Protein (6.3-8.2) g/dL Albumin (3.5-5.1) g/dL Lipase (23-300) U/L Vitamin B12 (239-931) pg/mL Folate (2.76->20) ng/mL RBC Folate Cancelled Procalcitonin ng/mL Urine Color (Yellow) Urine Appearance (Clear) Urine pH (5.0-9.0) Ur Specific [place] (1.001-1.035) Urine Protein (Negative) mg/dL Urine Glucose (UA) (Negative) mg/dL Urine Ketones (Negative) mg/dL Ur Blood (Man) (Negative) Urine Nitrate (Negative) Urine Bilirubin (Negative) Urine Urobilinogen (<2.0) mg/dL Leukocyte Esterase Rfl (Negative) JOVANY/UL Influenza A (RT-PCR) (Negative) Influenza B (RT-PCR) (Negative) RSV (RT-PCR) (Negative) SARS-CoV-2 RNA (RT-PCR) (Negative) Blood Type A Positive Antibody Screen Negative Crossmatch See Detail <Rsoelia Nelda Gallegos, [employer] - Last Filed: 10/14/24 19:09> Lab Results 10/11/24 10/11/24 10/11/24 Range/Units 13:43 14:12 14:41 WBC 9.5 (4.5-10.0) K/mm3 RBC 2.91 L (4.2-5.4) M/mm3 Hgb 8.7 L (12.0-15.0) g/dL Hct 28.8 L (37.0-47.0) % MCV 99.0 (80-100) fl MCH 29.9 (26-34) pg MCHC 30.2 L (32-36) g/dl RDW 16.2 H (11.5-14.5) % Plt Count 296 (150-375) k/mm3 MPV 9.4 (7.4-10.4) fl Immature Gran % (Auto) 0.6 H (0-0.5) % Neut % (Auto) 82.0 H (45.5-73.1) % Lymph % (Auto) 11.9 L (18.3-44.2) % Sharp % (Auto) 5.0 (2.6-8.5) % Eos % (Auto) 0.3 (0-4.4) % Baso % (Auto) 0.2 (0.2-1.2) % Lymph # (Auto) 1.14 (0.9-3.2) K/mm3 Sharp # (Auto) 0.5 (0.1-0.6) K/mm3 Eos # (Auto) 0.0 (0-0.3) K/mm3 Baso # (Auto) 0.0 (0.0-0.1) K/mm3 Abs Immat Gran (auto) 0.06 H (0.00-0.031) K/mm3 Absolute Neuts (auto) 7.8 H (1.3-6.7) K/mm3 Absolute Nucleated RBC 0.020 H (0.0-0.012) K/mm3 Nucleated RBC % 0.2 (0.0-0.2) % PT 18.5 H (11.1-14.7) Seconds INR 1.5 APTT 33.7 (22.3-36.8) Seconds Sodium 141 (137-145) mmol/L Potassium 4.2 (3.4-5.0) mmol/L Chloride 109 H (98-107) mmol/L Carbon Dioxide 22 (22-30) mmol/L Anion Gap 10 (4-12) mmol/L BUN 47 H D (7-17) mg/dL Creatinine 1.01 H (0.7-1.0) mg/dL Estim Creat Clear Calc Not Reportable Estimated GFR 52 L (59 - ) Glucose 99 (65-110) mg/dL POC Capillary Glucose (65-105) mg/dl Calcium 9.2 (8.4-10.2) mg/dL Magnesium (1.6-2.3) mg/dL Iron (37-170) ug/dL TIBC (261-462) ug/dL % Saturation (20-50) % Ferritin (11.1-264) ng/mL Total Bilirubin 0.4 (0.2-1.3) mg/dL AST 24 (14-36) U/L ALT 13 (6-35) U/L Alkaline Phosphatase 69 (38-126) U/L Total Protein 6.5 (6.3-8.2) g/dL Albumin 3.9 (3.5-5.1) g/dL Lipase 240 (23-300) U/L Vitamin B12 (239-931) pg/mL Folate (2.76->20) ng/mL RBC Folate Procalcitonin ng/mL Urine Color Yellow (Yellow) Urine Appearance Clear (Clear) Urine pH 5.5 (5.0-9.0) Ur Specific [place] 1.015 (1.001-1.035) Urine Protein Negative (Negative) mg/dL Urine Glucose (UA) Negative (Negative) mg/dL Urine Ketones Negative (Negative) mg/dL Ur Blood (Man) Trace-intact H (Negative) Urine Nitrate Negative (Negative) Urine Bilirubin Negative (Negative) Urine Urobilinogen 0.2 (<2.0) mg/dL Leukocyte Esterase Rfl Negative (Negative) JOVANY/UL Influenza A (RT-PCR) Negative (Negative) Influenza B (RT-PCR) Negative (Negative) RSV (RT-PCR) Negative (Negative) SARS-CoV-2 RNA (RT-PCR) Negative (Negative) Blood Type Antibody Screen Crossmatch 10/11/24 10/12/24 10/12/24 Range/Units 22:05 04:35 04:45 WBC 14.8 H (4.5-10.0) K/mm3 RBC 2.11 L (4.2-5.4) M/mm3 Hgb 6.3 L* (12.0-15.0) g/dL Hct 21.6 L (37.0-47.0) % MCV 102.4 H (80-100) fl MCH 29.9 (26-34) pg MCHC 29.2 L (32-36) g/dl RDW 16.4 H (11.5-14.5) % Plt Count 270 (150-375) k/mm3 MPV 9.9 (7.4-10.4) fl Immature Gran % (Auto) (0-0.5) % Neut % (Auto) (45.5-73.1) % Lymph % (Auto) (18.3-44.2) % Sharp % (Auto) (2.6-8.5) % Eos % (Auto) (0-4.4) % Baso % (Auto) (0.2-1.2) % Lymph # (Auto) (0.9-3.2) K/mm3 Sharp # (Auto) (0.1-0.6) K/mm3 Eos # (Auto) (0-0.3) K/mm3 Baso # (Auto) (0.0-0.1) K/mm3 Abs Immat Gran (auto) (0.00-0.031) K/mm3 Absolute Neuts (auto) (1.3-6.7) K/mm3 Absolute Nucleated RBC (0.0-0.012) K/mm3 Nucleated RBC % (0.0-0.2) % PT (11.1-14.7) Seconds INR APTT (22.3-36.8) Seconds Sodium 141 (137-145) mmol/L Potassium 4.1 (3.4-5.0) mmol/L Chloride 114 H (98-107) mmol/L Carbon Dioxide 20 L (22-30) mmol/L Anion Gap 7 (4-12) mmol/L BUN 53 H (7-17) mg/dL Creatinine 0.85 (0.7-1.0) mg/dL Estim Creat Clear Calc 40 Estimated GFR > 60 (59 - ) Glucose 100 (65-110) mg/dL POC Capillary Glucose 125 H (65-105) mg/dl Calcium 8.7 (8.4-10.2) mg/dL Magnesium 2.1 (1.6-2.3) mg/dL Iron 93 (37-170) ug/dL TIBC 327 (261-462) ug/dL % Saturation 28 (20-50) % Ferritin 18.40 (11.1-264) ng/mL Total Bilirubin (0.2-1.3) mg/dL AST (14-36) U/L ALT (6-35) U/L Alkaline Phosphatase (38-126) U/L Total Protein (6.3-8.2) g/dL Albumin (3.5-5.1) g/dL Lipase (23-300) U/L Vitamin B12 234.0 L (239-931) pg/mL Folate 7.2 (2.76->20) ng/mL RBC Folate Procalcitonin 0.2 ng/mL Urine Color (Yellow) Urine Appearance (Clear) Urine pH (5.0-9.0) Ur Specific [place] (1.001-1.035) Urine Protein (Negative) mg/dL Urine Glucose (UA) (Negative) mg/dL Urine Ketones (Negative) mg/dL Ur Blood (Man) (Negative) Urine Nitrate (Negative) Urine Bilirubin (Negative) Urine Urobilinogen (<2.0) mg/dL Leukocyte Esterase Rfl (Negative) JOVANY/UL Influenza A (RT-PCR) (Negative) Influenza B (RT-PCR) (Negative) RSV (RT-PCR) (Negative) SARS-CoV-2 RNA (RT-PCR) (Negative) Blood Type Antibody Screen Crossmatch 10/12/24 10/12/24 Range/Units 06:22 06:27 WBC 15.9 H (4.5-10.0) K/mm3 RBC 1.93 L (4.2-5.4) M/mm3 Hgb 5.9 L* (12.0-15.0) g/dL Hct 20.5 L* (37.0-47.0) % MCV 106.2 H (80-100) fl MCH 30.6 (26-34) pg MCHC 28.8 L (32-36) g/dl RDW 16.7 H (11.5-14.5) % Plt Count 237 (150-375) k/mm3 MPV 9.8 (7.4-10.4) fl Immature Gran % (Auto) (0-0.5) % Neut % (Auto) (45.5-73.1) % Lymph % (Auto) (18.3-44.2) % Sharp % (Auto) (2.6-8.5) % Eos % (Auto) (0-4.4) % Baso % (Auto) (0.2-1.2) % Lymph # (Auto) (0.9-3.2) K/mm3 Sharp # (Auto) (0.1-0.6) K/mm3 Eos # (Auto) (0-0.3) K/mm3 Baso # (Auto) (0.0-0.1) K/mm3 Abs Immat Gran (auto) (0.00-0.031) K/mm3 Absolute Neuts (auto) (1.3-6.7) K/mm3 Absolute Nucleated RBC (0.0-0.012) K/mm3 Nucleated RBC % (0.0-0.2) % PT (11.1-14.7) Seconds INR APTT (22.3-36.8) Seconds Sodium (137-145) mmol/L Potassium (3.4-5.0) mmol/L Chloride (98-107) mmol/L Carbon Dioxide (22-30) mmol/L Anion Gap (4-12) mmol/L BUN (7-17) mg/dL Creatinine (0.7-1.0) mg/dL Estim Creat Clear Calc Estimated GFR (59 - ) Glucose (65-110) mg/dL POC Capillary Glucose (65-105) mg/dl Calcium (8.4-10.2) mg/dL Magnesium (1.6-2.3) mg/dL Iron (37-170) ug/dL TIBC (261-462) ug/dL % Saturation (20-50) % Ferritin (11.1-264) ng/mL Total Bilirubin (0.2-1.3) mg/dL AST (14-36) U/L ALT (6-35) U/L Alkaline Phosphatase (38-126) U/L Total Protein (6.3-8.2) g/dL Albumin (3.5-5.1) g/dL Lipase (23-300) U/L Vitamin B12 (239-931) pg/mL Folate (2.76->20) ng/mL RBC Folate Cancelled Procalcitonin ng/mL Urine Color (Yellow) Urine Appearance (Clear) Urine pH (5.0-9.0) Ur Specific [place] (1.001-1.035) Urine Protein (Negative) mg/dL Urine Glucose (UA) (Negative) mg/dL Urine Ketones (Negative) mg/dL Ur Blood (Man) (Negative) Urine Nitrate (Negative) Urine Bilirubin (Negative) Urine Urobilinogen (<2.0) mg/dL Leukocyte Esterase Rfl (Negative) JOVANY/UL Influenza A (RT-PCR) (Negative) Influenza B (RT-PCR) (Negative) RSV (RT-PCR) (Negative) SARS-CoV-2 RNA (RT-PCR) (Negative) Blood Type A Positive Antibody Screen Negative Crossmatch See Detail <Angelo Han MD - Last Filed: 10/18/24 07:16> Imaging Data Radiologist's impression: ITS Impressions Head/Neck CTA 10/11/24 15:07 IMPRESSION: 1. 40% stenosis of the right carotid bulb relative to normal distal artery lumen diameter (NASCET criteria). 2. 40% stenosis of the left carotid bulb relative to normal distal artery lumen diameter. 3. 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 4. 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 No acute intracranial process or abnormally enhancing brain lesions. 5. Cerebral CT angiogram demonstrates no hemodynamically significant stenosis, aneurysm or thrombosis. Of note the majority of flow to the posterior cerebral arteries appears to be supplied from the bilateral internal carotid arteries via patent bilateral posterior communicating arteries which are significantly larger than the diminutive bilateral P1 segments. Chest X-Ray 10/11/24 15:26 IMPRESSION: 1: NO ACUTE CARDIOPULMONARY DISEASE. Abdomen/Pelvis CT 10/11/24 15:34 IMPRESSION: Possible mild fecal impaction. No CT findings of stercoral colitis. Otherwise, no acute abdominopelvic process detected. Brain MRI 10/14/24 16:29 IMPRESSION: No acute intracranial process. Abdomen X-Ray 10/15/24 13:23 IMPRESSION: 1. Fecal impaction of the colon and rectum. No obstruction. Head CT 10/15/24 13:37 Impression: No intracranial hemorrhage, mass, or acute infarct. Atrophy and chronic white matter changes, as above. <Roselia Gallegos, QUENTIN - Last Filed: 10/14/24 19:09> ITS Impressions Head/Neck CTA 10/11/24 15:07 IMPRESSION: 1. 40% stenosis of the right carotid bulb relative to normal distal artery lumen diameter (NASCET criteria). 2. 40% stenosis of the left carotid bulb relative to normal distal artery lumen diameter. 3. 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 4. 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 No acute intracranial process or abnormally enhancing brain lesions. 5. Cerebral CT angiogram demonstrates no hemodynamically significant stenosis, aneurysm or thrombosis. Of note the majority of flow to the posterior cerebral arteries appears to be supplied from the bilateral internal carotid arteries via patent bilateral posterior communicating arteries which are significantly larger than the diminutive bilateral P1 segments. Chest X-Ray 10/11/24 15:26 IMPRESSION: 1: NO ACUTE CARDIOPULMONARY DISEASE. Abdomen/Pelvis CT 10/11/24 15:34 IMPRESSION: Possible mild fecal impaction. No CT findings of stercoral colitis. Otherwise, no acute abdominopelvic process detected. Brain MRI 10/14/24 16:29 IMPRESSION: No acute intracranial process. Abdomen X-Ray 10/15/24 13:23 IMPRESSION: 1. Fecal impaction of the colon and rectum. No obstruction. Head CT 10/15/24 13:37 Impression: No intracranial hemorrhage, mass, or acute infarct. Atrophy and chronic white matter changes, as above. <Angelo Han MD - Last Filed: 10/18/24 07:16> Discharge Plan Discharge Clinical Impression: Slurred speech, Acute CVA (cerebrovascular accident) <Roselia Gallegos APRN - Last Filed: 10/14/24 19:09> Patient Disposition: Still a Patient <Roselia Gallegos APRN - Last Filed: 10/14/24 19:09> Condition: Stable <Roselia Galleogs APRN - Last Filed: 10/14/24 19:09>
--- OUTSIDE RECORDS SUMMARY | 2024-10-11 13:53 | XMS_ITS | Encounter Summary ---
Author Organization [facility] Address [address] [facility] [address] [place] [address] Care Team Providers Care Furnace Room Supervisor Name Role Phone Cindy Abernathy MD Primary Care Provider [phone] Cindy Abernathy MD Primary Care Provider [phone] Mary Bonilla RN Unavailable [phone] Marlin Rebolledo RN Unavailable [phone] Charanjit Ace MD Primary Care Provider [phone] Last De Jesus DO Unavailable [phone] Pavan Martinez MD Primary Care Provider Светлана vailable Encounter Details Date Type Department Care Team (Late st Contact Info) Description 07/08/2016 Orders Only [facility] Provider, MD Bola [address] [place] [address] Social History Tobacco Use Types Packs/Day Years Used Date Smoking Tobacco: Former Cigarettes Q uit: 05/08/1964 Alcohol Use Standard Drinks/Week Comments No 0 (1 standard drink = 0.6 oz pur e alcohol) Comments Unknown Sex and Gender Information Value Date Recorded Sex Assigned at Not on file 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 Gender Identity Not on file Sexual Orientation [...] on filedocumented in this encounter Care Teams Furnace Room Supervisor Relationship Specialty Start Date End Date Cindy Abernathy MD PCP - General 08/05/16 09/05/18 Cindy Abernathy MD PCP - General 06/21/16 08/04/16 Charanjit Ace MD [address] [facility] [address] [place], [place] [id number] PCP - General Internal Medicine 09/06/18 06/26/19 Pavan Martinez MD [address] [place] [address] [address] [place] [address], [place] [address] PCP - General Emergency Medicine 06/27/19 Mary Bonilla, CATRINA [address] [facility] [address] [place] [id number] Propulsion Motor And Generator Repairer 10/13/16 11/14/16 Marlin Rebolledo, CATRINA [address] [facility] [address] [place], [place] [id number] Propulsion Motor And Generator Repairer 07/24/17 07/24/17 aLst De Jesus DO [address] [place] [address] [address] [place] [address] Cardiovascular Disease 09/27/18 documented as of this encounter
--- OUTSIDE RECORDS SUMMARY | 2024-10-11 13:53 | XMS_ITS | Clinical Summary ---
Author Organization [facility] Address [address] [place] [address] Care Team Providers Care Commercial Loan Collection Officer Name Role Phone Trudy Abernathy MD Primary Care Provider [phone] Source Comments [facility],non-[facility] [place] Affiliates and Associated Physician Practices is amultiple site organization consisting of ambulatory clinics and hospital sitesin [place], [place], [place] and [place]. This disclosure is being madepursuant to the Care Everywhere program and may not contain all information available regarding this patient. 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
--- OUTSIDE RECORDS SUMMARY | 2024-10-11 13:53 | XMS_ITS | Referral Summary ---
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 Gender Identity Not on file Sexual Orientation [...] Plan of Treatment Not on file Insurance [facility] [place] [id number] [facility] MEDICARE ADVANTAGE [place] [id number] [facility] MEDICARE ADVANTAGE Advance Directives For more information, please contact: [phone] Documents on File Type Date Recorded Patient Warp Yarn Sorter Expl anation ADVANCE DIRECTIVE 08/04/2017 12:00 AM DNR * Full Code (Latest Code Status on File) Date Activated Date Inactivated Comments 09/19/2018 7:50 PM 09/27/2018 11:22 PM Care Teams Outdoor Advertising Leasing Agent Relationship Specialty Start Date End Date Pavan Martinez MD [address] [facility] [address] [place] [address] PCP - General Emergency Medicine 06/27/19 Last De Jesus DO [address] [facility] [address] [place] [address] Cardiovascular Disease 09/27/18
--- OUTSIDE RECORDS SUMMARY | 2024-10-11 13:53 | XMS_ITS | CONTINUITY OF CARE DOCUMENT ---
Author Name juliennecarlos elvin Address Unknown Organization [facility] Office Address [address] [place] [address] Phone [phone] Care Team Providers Care Patient Appointment Coordinator Name Role Phone Guilherme Ruvalcaba MD Unavailable PATRICE SANDERS MD Unavailable [phone] PATRICE SANDERS MD Unavailable [phone] PROBLEMS Condition Status Date Provider Notes Palpitations active Rolando Pelayo INSURANCE PROVIDERS Payer name Policy type / Coverage type [place] red democrat ID [facility] [id number] [place] MED[place] Medicare [id number] HISTORY OF PROCEDURES Procedure Date Procedure Name Provider Procedure Notes S tatus Event Monitor Rolando Pelayo completed
--- OUTSIDE RECORDS SUMMARY | 2024-10-11 13:53 | XMS_ITS | Clinical Summary ---
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 Gender Identity Not on file Sexual Orientation [...] 06/24/2014, 06/24/2014, Additional history exists Insurance IDPA [facility] MEDICARE ADVANTAGE [facility] Address: [address] [address] [place] [address] [facility] MEDICARE ADVANTAGE [facility] [place] [address] UHC MEDICARE ADVANTAGE Advance Directives For more information, please contact: [phone] Documents on File Type Date Recorded Patient Indoor Sports Centre Manager Expl anation ADVANCE DIRECTIVE 08/04/2017 12:00 AM DNR * Full Code (Latest Code Status on File) Date Activated Date Inactivated Comments 09/19/2018 7:50 PM 09/27/2018 11:22 PM Care Teams Copyholder Relationship Specialty Start Date End Date Pavan Martinez MD [address] [place] [address] DR [address] [place] [address] PCP - General Emergency Medicine 06/27/19 Last De Jesus DO [address] [place] [address] DR [address] [place] [address] Cardiovascular Disease 09/27/18
--- NOTE | 2024-10-11 13:56 | PC.NURSE ---
of patient is stating, patient had a fall at the [place] two hours ago. When he arrived she was slurring her words but no other symptoms. stated he has not seen her since Monday so he is not sure of her LAST KNOWN WELL. Patient has a hx of stroke. Patient also complaining of abdominal pain and constipation.
[2024-10-11 14:01] LABS: Basophils Percent Auto 0.2 % (0.2-1.2); Eosinophils Percent Auto 0.3 % (0-4.4); Hematocrit 28.8 % (37.0-47.0); Hemoglobin 8.7 g/dL (12.0-15.0); Immature Granulocyte Absolute 0.06 K/mm3 (0.00-0.031); Immature Granulocyte Percent A 0.6 % (0-0.5); Lymphocytes Absolute Auto 1.14 K/mm3 (0.9-3.2); Lymphocytes Percent Auto 11.9 % (18.3-44.2); Mean Corpuscular HGB Conc 30.2 g/dl (32-36); Mean Corpuscular Hemoglobin 29.9 pg (26-34); Mean Platelet Volume 9.4 fl (7.4-10.4); Monocytes Absolute Auto 0.5 K/mm3 (0.1-0.6); Neutrophils Absolute Auto 7.8 K/mm3 (1.3-6.7); Nucleated Red Blood Cells Perc 0.2 % (0.0-0.2); Platelet Count Result 296 k/mm3 (150-375); Red Blood Count 2.91 M/mm3 (4.2-5.4); Red Cell Distribution Width 16.2 % (11.5-14.5); White Blood Count 9.5 K/mm3 (4.5-10.0)
--- NOTE | 2024-10-11 14:08 | ED_ITS ---
HPI - General Adult General Chief complaint: Abdominal Pain Stated complaint: abd pain Time Seen by Provider: 10/11/24 13:30 History of Present Illness HPI narrative: 83-year-old female present to the emergency department for evaluation after having a ground level fall. Patient currently lives in [place] [facility] [place] and they called family this morning and stated that the patient had a fall while in the bathroom it is unsure if she fell from the toilet or from a standing position. Patient denies any pain or injury. Patient states that she was having some issues with constipation and still feels constipated but denies any current abdominal pain. Patient does have some slurred speech with no other focal neuro deficit. states the patient does have worsening slurred speech since he saw her on Monday. Patient does have history of CVA approximately 8 years ago and was treated [facility]. Patient has resided in [place] since the time of that stroke due to baseline deficits Related Data Home Medications ?Medication ?Instructions ?Recorded ?Confirmed ?Last Taken ?Type cholecalciferol (vitamin D3) 1,250 50,000 unit PO WEEKLY 03/20/19 10/11/24 03/28/22 History mcg (50,000 unit) tablet donepezil 10 mg tablet 10 mg PO HS 03/20/19 10/11/24 03/19/19 History polyethylene glycol 3350 17 17 g PO DAILY PRN Constipation 03/20/19 10/11/24 03/20/19 History gram/dose oral powder (Miralax) duloxetine 60 mg capsule,delayed 60 mg PO DAILY 07/16/21 10/11/24 Unknown History release lamotrigine 100 mg tablet 100 mg PO DAILY 07/16/21 10/11/24 Unknown History levetiracetam 250 mg tablet 250 mg PO BID 07/16/21 10/11/24 Unknown History (Keppra) melatonin 3 mg tablet 3 mg PO HS 07/16/21 10/11/24 Unknown History fluticasone propionate 50 2 spray intranasal DAILY 04/05/22 10/11/24 Unknown History mcg/actuation nasal spray,suspension (Allergy Relief (fluticasone)) mirabegron 25 mg tablet,extended 25 mg PO DAILY 04/05/22 10/11/24 Unknown History release 24 hr (Myrbetriq) Marisol-Tussin 5 ml PO Q6H PRN Congestion 09/13/22 10/11/24 Unknown History acetaminophen 325 mg tablet 650 mg PO Q4H PRN Pain (Scale 09/13/22 10/11/24 Unknown History Score 1-3) magnesium oxide 1 tablet PO DAILY 09/13/22 10/11/24 Unknown History sennosides 8.6 mg-docusate sodium 1 tab-cap PO DAILY 06/06/23 10/11/24 Unknown History 50 mg tablet (Senna Plus) multivitamin with iron-mineral 1 tablet PO DAILY 08/31/24 10/11/24 Unknown History pantoprazole 40 mg tablet,delayed 40 mg PO Q12H 08/31/24 10/11/24 Unknown History release amlodipine 5 mg tablet 5 mg PO DAILY 10/11/24 10/11/24 Unknown History Allergies Allergy/AdvReac Type Severity Reaction Status Date / Time sertraline Allergy Severe Unknown Verified 10/11/24 17:52 hydromorphone Allergy Intermediate Unknown Verified 10/11/24 17:52 Review of Systems 2 Review of Systems: All systems reviewed & are unremarkable except as noted in HPI and below PMFSH Past Medical History Medical History (Updated 10/11/24 @ 16:16 by Angelo Han MD) Anemia Chronic kidney disease, stage 3 Psoas abscess, left 2021 Mild aortic stenosis Chronic anticoagulation Gastroesophageal reflux disease Congestive heart failure Pneumonia due to COVID-19 virus Vitamin D deficiency Orthostatic hypotension possible 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, 2019 Thoracic compression fracture T10 Essential hypertension Osteoporosis Frequent urinary tract infections history of ESBL E coli infection March 2018 Seizure disorder Schizoaffective disorder Hyperlipidemia Depression Dementia Paroxysmal atrial fibrillation Surgical History Surgical History History of arthroscopy of left shoulder History of total left hip arthroplasty (2015) History of bladder suspension procedure History of hysterectomy Family History Family History Sibling Dementia Cerebrovascular accident Sibling Acute myocardial infarction Mother Cirrhosis Father Emphysema of lung Social History Social History Social History: Surrogate medical decision maker: Cameron Naranjo. Code status: Do not resuscitate. Smoking packs per day: 1 Smoking cigarettes per day: 20.0 Years smoked: 10 Smoking pack-years: 10.00 Smoking status: Unknown if ever smoked Second hand tobacco smoke exposure: No Alcohol intake: never Substance use: never Substance use type: does not use Do You Feel Safe in your Home?: Yes Lack of Transportation: No Lack of Food: Never True Current Housing: I Have Housing Concerned About Future Housing: No Difficulty Paying Gas/Electric Bills: No Difficulty Paying for Meds: No Currently Unemployed: No Education: Grade School Difficulty w/ Childcare or Family Care: No Additional living arrangements comments: . Resident at [facility]. 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: No Agree to blood products: Yes Exam 2 Narrative: APPEARANCE: Well appearing, no pain, no distress, well-nourished. HEAD: normocephalic, atraumatic. EYES: PERRLA/EOMI, conjunctivae clear. NOSE: Normal no drainage EARS:TMS clear with good light reflex. THROAT: Pharynx clear, no exudate. NECK: Supple. No adenopathy, no masses. RESPIRATORY: Airway patent, respirations nonlabored. Clear to auscultation bilaterally, no rales, rhonchi, wheezing. CARDIOVASCULAR: Regular rate and rhythm without murmurs rubs or gallops. ABDOMINAL: Soft, nontender, nondistended, normal bowel sounds MUSCULOSKELETAL: Moves all extremities. Strength/ROM intact, No edema, No calf tenderness. NEURO: Alert. Cranial nerves II through XII intact. Good gait. Good coordination. Slurred speech at baseline but has been states 3rd speech is worse than normal. SKIN: Warm, dry. Normal Color Course Vital Signs Vital signs: Vital Signs Temperature 97.4 F L 10/11/24 13:24 Pulse Rate 87 10/11/24 13:24 Respiratory Rate 18 10/11/24 13:24 Blood Pressure 135/49 L 10/11/24 13:24 Pulse Oximetry 97 10/11/24 13:24 Oxygen Delivery Room Air 10/11/24 13:24 Temperature 97.8 F 10/11/24 16:30 Pulse Rate 98 10/11/24 17:45 Respiratory Rate 18 10/11/24 17:45 Blood Pressure 149/58 H 10/11/24 17:45 Pulse Oximetry 96 10/11/24 17:45 Oxygen Delivery Room Air 10/11/24 13:24 Medical Decision Making MDM Narrative Medical decision making narrative: 83-year-old female presented emergency department for evaluation for worsening slurred speech and altered mental status. Patient's last known normal was Monday. Patient's saw her today and felt that her slurred speech was worse than baseline. Patient is currently afebrile with no leukocytosis and hemoglobin of 8.7 which is similar to her previous baseline. Patient has an INR of 1.5 and patient has no acute abnormalities on her CMP UA was negative for infection patient was negative for influenza RSV and for COVID. CT abdomen pelvis does show evidence of constipation with no stercoral colitis and head CT did show multiple chronic findings but no acute stenosis, thrombosis or infarction. Chest x-ray showed no acute cardiopulmonary abnormality. I discussed the case with the hospitalist patient will be admitted for further evaluation for altered mental status and for CVA workup. Differential Diagnosis Differential Diagnosis: CVA, TIA, subarachnoid hemorrhage, subdural hematoma, UTI, COVID, RSV, influenza Vital Signs Vital Signs: Vital Signs Temperature 97.4 F L 10/11/24 13:24 Pulse Rate 87 10/11/24 13:24 Respiratory Rate 18 10/11/24 13:24 Blood Pressure 135/49 L 10/11/24 13:24 Pulse Oximetry 97 10/11/24 13:24 Oxygen Delivery Room Air 10/11/24 13:24 Temperature 97.8 F 10/11/24 16:30 Pulse Rate 98 10/11/24 17:45 Respiratory Rate 18 10/11/24 17:45 Blood Pressure 149/58 H 10/11/24 17:45 Pulse Oximetry 96 10/11/24 17:45 Oxygen Delivery Room Air 10/11/24 13:24 Lab Data Lab results reviewed: Yes I reviewed the patient's lab results. 10/11/24 13:43 10/11/24 13:43 Labs: Lab Results 10/11/24 10/11/24 10/11/24 Range/Units 13:43 14:12 14:41 WBC 9.5 (4.5-10.0) K/mm3 RBC 2.91 L (4.2-5.4) M/mm3 Hgb 8.7 L (12.0-15.0) g/dL Hct 28.8 L (37.0-47.0) % MCV 99.0 (80-100) fl MCH 29.9 (26-34) pg MCHC 30.2 L (32-36) g/dl RDW 16.2 H (11.5-14.5) % Plt Count 296 (150-375) k/mm3 MPV 9.4 (7.4-10.4) fl Immature Gran % (Auto) 0.6 H (0-0.5) % Neut % (Auto) 82.0 H (45.5-73.1) % Lymph % (Auto) 11.9 L (18.3-44.2) % Early % (Auto) 5.0 (2.6-8.5) % Eos % (Auto) 0.3 (0-4.4) % Baso % (Auto) 0.2 (0.2-1.2) % Lymph # (Auto) 1.14 (0.9-3.2) K/mm3 Early # (Auto) 0.5 (0.1-0.6) K/mm3 Eos # (Auto) 0.0 (0-0.3) K/mm3 Baso # (Auto) 0.0 (0.0-0.1) K/mm3 Abs Immat Gran (auto) 0.06 H (0.00-0.031) K/mm3 Absolute Neuts (auto) 7.8 H (1.3-6.7) K/mm3 Absolute Nucleated RBC 0.020 H (0.0-0.012) K/mm3 Nucleated RBC % 0.2 (0.0-0.2) % PT 18.5 H (11.1-14.7) Seconds INR 1.5 APTT 33.7 (22.3-36.8) Seconds Sodium 141 (137-145) mmol/L Potassium 4.2 (3.4-5.0) mmol/L Chloride 109 H (98-107) mmol/L Carbon Dioxide 22 (22-30) mmol/L Anion Gap 10 (4-12) mmol/L BUN 47 H D (7-17) mg/dL Creatinine 1.01 H (0.7-1.0) mg/dL Estim Creat Clear Calc Not Reportable Estimated GFR 52 L (59 - ) Glucose 99 (65-110) mg/dL Calcium 9.2 (8.4-10.2) mg/dL Total Bilirubin 0.4 (0.2-1.3) mg/dL AST 24 (14-36) U/L ALT 13 (6-35) U/L Alkaline Phosphatase 69 (38-126) U/L Total Protein 6.5 (6.3-8.2) g/dL Albumin 3.9 (3.5-5.1) g/dL Lipase 240 (23-300) U/L Urine Color Yellow (Yellow) Urine Appearance Clear (Clear) Urine pH 5.5 (5.0-9.0) Ur Specific [place] 1.015 (1.001-1.035) Urine Protein Negative (Negative) mg/dL Urine Glucose (UA) Negative (Negative) mg/dL Urine Ketones Negative (Negative) mg/dL Ur Blood (Man) Trace-intact H (Negative) Urine Nitrate Negative (Negative) Urine Bilirubin Negative (Negative) Urine Urobilinogen 0.2 (<2.0) mg/dL Leukocyte Esterase Rfl Negative (Negative) JOVANY/UL Influenza A (RT-PCR) Negative (Negative) Influenza B (RT-PCR) Negative (Negative) RSV (RT-PCR) Negative (Negative) SARS-CoV-2 RNA (RT-PCR) Negative (Negative) Discharge Plan Discharge Clinical Impression: Slurred speech, Acute CVA (cerebrovascular accident) Patient Disposition: Still a Patient Condition: Stable
[2024-10-11 14:11] LABS: INR 1.5; Prothrombin Time 18.5 Seconds (11.1-14.7)
[2024-10-11 14:12] LABS: Partial Thromboplastin Time 33.7 Seconds (22.3-36.8)
[2024-10-11 14:16] LABS: Alanine Aminotransferase 13 U/L (6-35); Albumin Level 3.9 g/dL (3.5-5.1); Alkaline Phosphatase 69 U/L (38-126); Anion Gap 10 mmol/L (4-12); Aspartate Amino Transferase 24 U/L (14-36); Bilirubin,Total 0.4 mg/dL (0.2-1.3); Blood Urea Nitrogen 47 mg/dL (7-17); Calcium 9.2 mg/dL (8.4-10.2); Carbon Dioxide 22 mmol/L (22-30); Chloride 109 mmol/L (98-107); Estimated Glomerular Filt Rate 52; Glucose 99 mg/dL (65-110); Lipase 240 U/L (23-300); Potassium 4.2 mmol/L (3.4-5.0); Sodium 141 mmol/L (137-145); Total Protein 6.5 g/dL (6.3-8.2)
[2024-10-11 14:51] LABS: Add Urine Microscopic? NO
[2024-10-11 14:52] LABS: Appearance Urine Clear (Clear); Bilirubin Urine Negative (Negative); Blood Urine Trace-intact (Negative); Color Urine Yellow (Yellow); Glucose Urine UA Negative (Negative); Ketones Urine Negative (Negative); Leukocyte Esterase Ur Negative LEU/UL (Negative); Nitrate Urine Negative (Negative); Protein Urine Negative (Negative); Specific Grav Ur 1.015 (1.001-1.035); Urobilinogen Urine 0.2 mg/dL (<2.0); pH Urine 5.5 (5.0-9.0)
[2024-10-11 14:56] LABS: Influenza A QL RT-PCR Negative (Negative); Influenza B QL RT-PCR Negative (Negative); RSV RNA, RT-PCR Negative (Negative); SARS-CoV-2 RNA PCR Negative (Negative)
[2024-10-11] MEDS: ONDANSETRON INJ 4 MG/2 ML VIAL IV PUSH (15:04)
--- NOTE | 2024-10-11 17:35 | ADMGEN ---
This patient, Kenton Wilhelm, was admitted to 2 Medical Room 251-. Patient/family oriented to hospital policies and general routines including ID bracelet, bed and alarms, visiting hours, pain management, procedures, bathroom and other care routines, personal items, smoking policy, room service/diet, and visiting hours. Information on how to activate the Rapid Response Team has been discussed. Patient/Family are encouraged to report perceived risks to care and to ask questions if they do not understand what they are told or what they should do.
[2024-10-11] MEDS: APIXABAN 5 MG TABLET PO (21:30)
[2024-10-11] MEDS: PANTOPRAZOLE 40 MG TABLET PO (21:30)
[2024-10-11] MEDS: levETIRAcetam 250 MG TABLET PO (21:30)
[2024-10-11] MEDS: MELATONIN 3 MG TABLET PO (21:30)
[2024-10-11] MEDS: DONEPEZIL HCL 10 MG TABLET PO (21:30)
--- NOTE | 2024-10-11 21:30 | PM.IMHP ---
H&P: HPI History of Present Illness Date/Time: 10/11/24 21:30 Chief Complaint: Ground level fall Narrative: 83-year-old female past medical history of dementia, essential hypertension, chronic constipation, diastolic heart failure, paroxysmal atrial fibrillation, seizure disorder, GERD and prior GI bleed due to AVM who presented to the ER via EMS from [facility] due to frightening the patient on the floor. half-way staff reported that they found the patient on the bathroom floor. Is unclear if she fell from the toilet her from a standing position. Patient has been having issues with constipation and had a small bowel movement earlier in the day that was hard. The patient was also reported to be having some abdominal pain and nausea and vomiting that had reportedly started on the . The patient's also reported that he felt the patient was slurring her words more than usual but he last saw her on the . However the patient had no other focal neurologic deficits noted in the ER. Patient has resided in a skilled nursing for the last 8 years following a CVA and resultant deficits. At the time my evaluation the patient is alert oriented to self. She cannot name the hospital or tell me that date or year. She cannot state her age. She did grimace on palpation of her abdomen. But she is unable to report any other review of systems. Labs in the ER demonstrated normal white count in stable hemoglobin. Her creatinine was also stable but her BUN had doubled from baseline and UA was unremarkable. CTA of the head and neck demonstrated multiple areas of stenosis none of which were severe and old infarcts. CT of the abdomen pelvis demonstrated fecal impaction without evidence of stercoral colitis. On my review imaging the patient is seemed to have some possible liquid stool above area of fecal impaction. Patient reports to me that she feels like she needs to have a bowel movement. A Colace enema was ordered at the time of my evaluation. The patient received the enema shortly thereafter. The nursing staff place the patient on the bedside commode and when they came back into the room the patient was unresponsive. She was having diarrheal stools. Patient secured entrance monitor was not picking up at the time of the event. When I arrived at the patient's bedside the patient was bradycardic with palpable pulse around 50. Patient had some perioral cyanosis but normal pulse ox at 100%. Her blood pressures on initial evaluation were in the 110s over 40'sand repeat blood pressures were 130s over 60 and repeat heart rate was back up in the 80s to 90s. Review of Systems Review of Systems: Unobtainable due to dementia. ROS unobtainable: Yes unobtainable due to mental status [facility] Past Medical History Medical History (Updated 10/11/24 @ 23:26 by Magaly Bermudez DO) AVM (arteriovenous malformation) of small bowel, acquired with hemorrhage Noted on EGD 09/02/2024 Anemia 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, 2019 Thoracic compression fracture T10 Essential hypertension Osteoporosis Frequent urinary tract infections history of ESBL E coli infection March 2018 Seizure disorder Schizoaffective disorder Hyperlipidemia Depression Dementia Paroxysmal atrial fibrillation Surgical History Surgical History History of arthroscopy of left shoulder History of total left hip arthroplasty (2015) History of bladder suspension procedure History of hysterectomy Family History Family History Sibling Dementia Cerebrovascular accident Sibling Acute myocardial infarction Mother Cirrhosis Father Emphysema of lung Social History Social History (Updated 10/11/24 @ 23:13 by Magaly Bermudez DO) Social History: Surrogate medical decision maker: Cameron Naranjo. Code status: DNR/DNI Smoking packs per day: 1 Smoking cigarettes per day: 20.0 Years smoked: 10 Smoking pack-years: 10.00 Smoking status: Former smoker Second hand tobacco smoke exposure: No Alcohol intake: never Substance use: never Substance use type: does not use Do You Feel Safe in your Home?: Yes Lack of Transportation: No Lack of Food: Never True Current Housing: I Have Housing Concerned About Future Housing: No Difficulty Paying Gas/Electric Bills: No Difficulty Paying for Meds: No Currently Unemployed: No Education: Grade School Difficulty w/ Childcare or Family Care: No Additional living arrangements comments: . Resident at [facility], [place]. 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: No Agree to blood products: Yes Meds Home Medications and Allergies Home Medications ?Medication ?Instructions ?Recorded ?Confirmed ?Type cholecalciferol (vitamin D3) 1,250 50,000 unit PO WEEKLY 03/20/19 10/11/24 History mcg (50,000 unit) tablet donepezil 10 mg tablet 10 mg PO HS 03/20/19 10/11/24 History polyethylene glycol 3350 17 17 g PO DAILY PRN Constipation 03/20/19 10/11/24 History gram/dose oral powder (Miralax) duloxetine 60 mg capsule,delayed 60 mg PO DAILY 07/16/21 10/11/24 History release lamotrigine 100 mg tablet 100 mg PO DAILY 07/16/21 10/11/24 History levetiracetam 250 mg tablet 250 mg PO BID 07/16/21 10/11/24 History (Keppra) melatonin 3 mg tablet 3 mg PO HS 07/16/21 10/11/24 History fluticasone propionate 50 2 spray intranasal DAILY 04/05/22 10/11/24 History mcg/actuation nasal spray,suspension (Allergy Relief (fluticasone)) mirabegron 25 mg tablet,extended 25 mg PO DAILY 04/05/22 10/11/24 History release 24 hr (Myrbetriq) Marisol-Tussin 5 ml PO Q6H PRN Congestion 09/13/22 10/11/24 History acetaminophen 325 mg tablet 650 mg PO Q4H PRN Pain (Scale 09/13/22 10/11/24 History Score 1-3) magnesium oxide 1 tablet PO DAILY 09/13/22 10/11/24 History sennosides 8.6 mg-docusate sodium 1 tab-cap PO DAILY 06/06/23 10/11/24 History 50 mg tablet (Senna Plus) apixaban 5 mg tablet (Eliquis) 5 mg PO Q12HR #60 tabs 06/13/23 10/11/24 Rx diltiazem HCl 120 mg 120 mg PO DAILY #30 caps 06/13/23 10/11/24 Rx capsule,extended release 24 hr multivitamin with iron-mineral 1 tablet PO DAILY 08/31/24 10/11/24 History pantoprazole 40 mg tablet,delayed 40 mg PO Q12H 08/31/24 10/11/24 History release lorazepam 0.5 mg tablet 0.5 mg PO TID #1 tablet 09/06/24 10/11/24 Rx amlodipine 5 mg tablet 5 mg PO DAILY 10/11/24 10/11/24 History Allergies Allergy/AdvReac Type Severity Reaction Status Date / Time sertraline Allergy Severe Unknown Verified 10/11/24 17:52 hydromorphone Allergy Intermediate Unknown Verified 10/11/24 17:52 Vital Signs Vital Signs - 24 hr 10/11/24 13:24 10/11/24 13:37 10/11/24 13:46 Temperature 97.4 F L Pulse Rate 87 89 Respiratory Rate 18 20 Blood Pressure 135/49 L 147/61 H 140/65 Pulse Oximetry 97 95 97 Oxygen Delivery Room Air Oxygen Flow Rate 10/11/24 15:19 10/11/24 15:32 10/11/24 15:46 Temperature Pulse Rate 90 88 91 Respiratory Rate 24 H 20 17 Blood Pressure 136/78 132/57 L Pulse Oximetry 95 97 99 Oxygen Delivery Oxygen Flow Rate 10/11/24 16:30 10/11/24 16:47 10/11/24 17:45 Temperature 97.8 F Pulse Rate 100 100 98 Respiratory Rate 16 19 18 Blood Pressure 131/55 L 149/58 H Pulse Oximetry 95 96 Oxygen Delivery Oxygen Flow Rate 10/11/24 20:00 10/11/24 20:01 10/11/24 22:00 Temperature 98.4 F Pulse Rate 98 89 Respiratory Rate 18 Blood Pressure 132/59 L Pulse Oximetry 98 Oxygen Delivery Room Air Oxygen Flow Rate 10/11/24 22:05 Temperature Pulse Rate 93 Respiratory Rate 18 Blood Pressure 129/40 L Pulse Oximetry 100 Oxygen Delivery Nasal Cannula Oxygen Flow Rate 3 Exam Narrative: Weight 71.2 kg BMI 27.8 Const: Other: Well-developed, well-nourished, elderly, chronically ill-appearing HENMT: Other: Mucous membranes are dry, no oral pharyngeal erythema, head is normocephalic atraumatic Eyes: Other: Pupils are equal and reactive, positive conjunctival pallor, no scleral icterus Neck: Other: No JVD, no lymphadenopathy Resp: Other: Clear to auscultation bilaterally, no increased work of breathing Cardio: Other: Regular rate, regular rhythm, 2+ bilateral radial pedal pulses, 2/6 systolic murmur heard best at the left upper sternal border GI: Other: Soft, fullness in the right upper abdomen, grimaces with palpation of the abdomen, hypoactive bowel sounds, no organomegaly : Other: Incontinent of urine with pure wick in place, during rapid response patient was incontinent of stool Skin: Other: Generalized pallor, non jaundice, cool to touch, 3-4 second cap refill Neuro: Other: Patient is alert oriented to self, speech is clear and answers direct questions and speech is intermittently slurred, sensation is intact all extremities, no obvious facial asymmetry, moves all extremities equally Extrem: Other: Moving extremities equally, no clubbing, no cyanosis Psych: Other: Pleasantly confused, cooperative H&P: Results Labs Labs: Laboratory Tests 10/11/24 13:43 10/11/24 13:43 10/11/24 10/11/24 10/11/24 13:43 14:12 14:41 WBC 9.5 RBC 2.91 L Hgb 8.7 L Hct 28.8 L MCV 99.0 MCH 29.9 MCHC 30.2 L RDW 16.2 H Plt Count 296 MPV 9.4 Immature Gran % (Auto) 0.6 H Neut % (Auto) 82.0 H Lymph % (Auto) 11.9 L [place] % (Auto) 5.0 Eos % (Auto) 0.3 Baso % (Auto) 0.2 Lymph # (Auto) 1.14 [place] # (Auto) 0.5 Eos # (Auto) 0.0 Baso # (Auto) 0.0 Abs Immat Gran (auto) 0.06 H Absolute Neuts (auto) 7.8 H Absolute Nucleated RBC 0.020 H Nucleated RBC % 0.2 PT 18.5 H INR 1.5 APTT 33.7 Sodium 141 Potassium 4.2 Chloride 109 H Carbon Dioxide 22 Anion Gap 10 BUN 47 H D Creatinine 1.01 H Estim Creat Clear Calc Not Reportable Estimated GFR 52 L Glucose 99 POC Capillary Glucose Calcium 9.2 Total Bilirubin 0.4 AST 24 ALT 13 Alkaline Phosphatase 69 Total Protein 6.5 Albumin 3.9 Lipase 240 Urine Color Yellow Urine Appearance Clear Urine pH 5.5 Ur Specific [place] 1.015 Urine Protein Negative Urine Glucose (UA) Negative Urine Ketones Negative Ur Blood (Man) Trace-intact H Urine Nitrate Negative Urine Bilirubin Negative Urine Urobilinogen 0.2 Leukocyte Esterase Rfl Negative Influenza A (RT-PCR) Negative Influenza B (RT-PCR) Negative RSV (RT-PCR) Negative SARS-CoV-2 RNA (RT-PCR) Negative 10/11/24 22:05 WBC RBC Hgb Hct MCV MCH MCHC RDW Plt Count MPV Immature Gran % (Auto) Neut % (Auto) Lymph % (Auto) [place] % (Auto) Eos % (Auto) Baso % (Auto) Lymph # (Auto) [place] # (Auto) Eos # (Auto) Baso # (Auto) Abs Immat Gran (auto) Absolute Neuts (auto) Absolute Nucleated RBC Nucleated RBC % PT INR APTT Sodium Potassium Chloride Carbon Dioxide Anion Gap BUN Creatinine Estim Creat Clear Calc Estimated GFR Glucose POC Capillary Glucose 125 H Calcium Total Bilirubin AST ALT Alkaline Phosphatase Total Protein Albumin Lipase Urine Color Urine Appearance Urine pH Ur Specific [place] Urine Protein Urine Glucose (UA) Urine Ketones Ur Blood (Man) Urine Nitrate Urine Bilirubin Urine Urobilinogen Leukocyte Esterase Rfl Influenza A (RT-PCR) Influenza B (RT-PCR) RSV (RT-PCR) SARS-CoV-2 RNA (RT-PCR) Impressions Head/Neck CTA 10/11/24 15:07 IMPRESSION: 1. 40% stenosis of the right carotid bulb relative to normal distal artery lumen diameter (NASCET criteria). 2. 40% stenosis of the left carotid bulb relative to normal distal artery lumen diameter. 3. 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 4. 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 No acute intracranial process or abnormally enhancing brain lesions. 5. Cerebral CT angiogram demonstrates no hemodynamically significant stenosis, aneurysm or thrombosis. Of note the majority of flow to the posterior cerebral arteries appears to be supplied from the bilateral internal carotid arteries via patent bilateral posterior communicating arteries which are significantly larger than the diminutive bilateral P1 segments. Chest X-Ray 10/11/24 15:26 IMPRESSION: 1: NO ACUTE CARDIOPULMONARY DISEASE. Abdomen/Pelvis CT 10/11/24 15:34 IMPRESSION: Possible mild fecal impaction. No CT findings of stercoral colitis. Otherwise, no acute abdominopelvic process detected. EKG:Test Date: 2024-10-11 13:50:30 Measurements Intervals [place] Rate: 83 P: 10 SD: 152 QRS: 4 QRSD: 130 T: 68 QT: 394 QTc: 463 Interpretive Statements SINUS RHYTHM LEFT BUNDLE BRANCH BLOCK BASELINE ARTIFACT- I, III, AVR, AVL, AVF ABNORMAL ECG Compared to ECG 09/06/2024 10:23:12 No significant changes All imaging and EKGs personally reviewed and interpreted. And unless stated otherwise agree with radiologic and cardiology interpretation. Assessment and Plan Assessment and plan (1) Fecal impaction: Code(s): K56.41 - Fecal impaction Status: Acute (2) Nausea & vomiting: Qualifiers: Vomiting type: unspecified Qualified Code(s): R11.2 - Nausea with vomiting, unspecified Code(s): R11.2 - Nausea with vomiting, unspecified Status: Acute (3) Vasovagal syncope: Code(s): R55 - Syncope and collapse Status: Acute (4) Iron deficiency anemia: Qualifiers: Iron deficiency anemia type: chronic blood loss Qualified Code(s): D50.0 - Iron deficiency anemia secondary to blood loss (chronic) Code(s): D50.9 - Iron deficiency anemia, unspecified Status: Acute (5) Slurred speech: Code(s): R47.81 - Slurred speech Status: Acute Plan Patient had some nausea vomiting at the skilled nursing likely due to fecal impaction. Her fall, and hindsight, is likely secondary to vasovagal event. Patient received Colace enema after arriving to the medical floor and subsequently went unresponsive while on the commode and had large amount of hard stool output followed by looser stool. Patient did have transient bradycardia with the event but vitals and blood pressure returned to normal. Mental status returned to normal shortly thereafter. Patient does have an elevated BUN from baseline likely has some component of hypovolemia which contributed to syncopal event. Will give 1 L fluids at 100 mL an hour repeat electrolyte panel and CBC in a.m. to re-evaluate. Patient's hemoglobin is relatively stable compared to last hospitalization and stool is brown without evidence of blood or melena. Will repeat CBC in a.m.. Will continue to monitor cardiac rhythm on telemetry. Unfortunately on review of telemetry during the patient's vagal event appears the patient had not been on telemetry for some time. I reiterated the importance of patient remaining on telemetry with staff. Will monitor rhythm closely. The patient did have recent echocardiogram within the last 6 months so no need to repeat at this time. Patient did have some slurred speech which family reports is worse than baseline. I am less concerned about of CVA given patient's recent history. MRI has been ordered but I have been told by nursing staff that MRI is not available this weekend. Patient is already on stroke prophylaxis with Eliquis due to history of paroxysmal AFib. Will continue Eliquis and home cardiac medications. Patient does have a history of seizures but acute seizure causing above episode is less likely. Will continue patient's home Keppra and lamotrigine. Will change the patient's MiraLax from p.r.n. to scheduled and will continue home senna Plus. The remainder the patient's home medications will be reviewed and reconciled as appropriate. Patient has been admitted as observation status. 40 minute spent in critical care activities. Due to a high probability of clinically significant, life threatening deterioration, the patient required my highest level of preparedness to intervene emergently and I personally spent this critical care time directly and personally managing the patient. This critical care time included obtaining a history; examining the patient; pulse oximetry; ordering and review of studies; arranging urgent treatment with development of a management plan; evaluation of patient's response to treatment; frequent reassessment; and discussions with other providers. It was exclusive of separately billable procedures and treating other patients and teaching time. Please see Assessment and Plan section and the rest of the note for further information on patient assessment and treatment. Quality VTE Prophylaxis VTE prophylaxis: pharmacologic ordered (Continue home Eliquis.) Hospitalist [facility] Advance Care Plan I have confirmed that the patient's Advanced Care Plan is present, code status is documented, or surrogate decision maker is listed in patient medical record.: Yes Medication Reconciliation I have utilized all available resources to obtain, update and review the patients current medications (includes all prescriptions, OTC, herbals, cannabis, and nutritional supplements).: Yes
[2024-10-11] MEDS: SODIUM CHLORIDE 0.9% IV 1,000 ML 100 ML IV CONT (21:32)
[2024-10-11] MEDS: DOCUSATE SODIUM 400 MG/400 ML ENEMA RECTAL (21:43)
[2024-10-11 22:10] LABS: Glucose Point of Care 125 mg/dl (65-105)
--- NOTE | 2024-10-11 22:52 | PC.NURSE ---
After giving the pt a colace enema the pt was placed on the bedside commode by this nurse for a BM. Pt then became limp, diaphoretic, and unresponsive. At this point this nurse called for assistance and a rapid response was initiated. Pt was then moved back into bed and vitals and blood sugar were obtained. Hospitalist Dr. Bermudez arrived and began their evaluation. PT then reawoke and became more orientated to their condition. Hospitalist suspected vagal response to BM. PT stabilized and no further action was necessary. RN will continue to monitor for rest of shift.
[2024-10-12] VITALS (22 sets, daily range): BP systolic 111–153; BP diastolic 40–95; PULSE 20–99; RESP 14–20; TEMP 36.2–37.1; O2SAT 91–100
[2024-10-12 05:37] LABS: Hematocrit 21.6 % (37.0-47.0); Mean Corpuscular HGB Conc 29.2 g/dl (32-36); Mean Corpuscular Hemoglobin 29.9 pg (26-34); Mean Corpuscular Volume 102.4 fl (80-100); Mean Platelet Volume 9.9 fl (7.4-10.4); Platelet Count Result 270 k/mm3 (150-375); Red Blood Count 2.11 M/mm3 (4.2-5.4); Red Cell Distribution Width 16.4 % (11.5-14.5); White Blood Count 14.8 K/mm3 (4.5-10.0)
[2024-10-12 05:57] LABS: Anion Gap 7 mmol/L (4-12); Blood Urea Nitrogen 53 mg/dL (7-17); Calcium 8.7 mg/dL (8.4-10.2); Carbon Dioxide 20 mmol/L (22-30); Chloride 114 mmol/L (98-107); Estimated CRCL calculation 40 ml/min; Estimated Glomerular Filt Rate > 60; Glucose 100 mg/dL (65-110); Potassium 4.1 mmol/L (3.4-5.0); Sodium 141 mmol/L (137-145)
[2024-10-12 06:04] LABS: Hemoglobin 6.3 g/dL (12.0-15.0)
[2024-10-12 06:32] LABS: Mean Corpuscular HGB Conc 28.8 g/dl (32-36); Mean Corpuscular Hemoglobin 30.6 pg (26-34); Mean Corpuscular Volume 106.2 fl (80-100); Mean Platelet Volume 9.8 fl (7.4-10.4); Platelet Count Result 237 k/mm3 (150-375); Red Blood Count 1.93 M/mm3 (4.2-5.4); Red Cell Distribution Width 16.7 % (11.5-14.5); White Blood Count 15.9 K/mm3 (4.5-10.0)
[2024-10-12 06:51] LABS: Hematocrit 20.5 % (37.0-47.0); Hemoglobin 5.9 g/dL (12.0-15.0)
[2024-10-12 07:26] LABS: Magnesium 2.1 mg/dL (1.6-2.3)
[2024-10-12 07:39] LABS: Iron 93 ug/dL (37-170)
[2024-10-12 07:48] LABS: Percent Iron Saturation 28 % (20-50)
[2024-10-12] MEDS: SODIUM CHLORIDE 0.9% IV 250 ML 30 ML IV CONT (09:04)
--- NOTE | 2024-10-12 09:27 | PC.NURSE ---
RN spoked to [facility] and they are insisting we transfer patient from our hospital to [facility]. RN called Mary THAKKAR Hospitalist and informed her.
[2024-10-12 09:50] LABS: Folic Acid 7.2 ng/mL (2.76->20)
--- NOTE | 2024-10-12 09:57 | P.PNIM_ITS ---
Progress Note: A&P Assessment and Plan (1) Acute gastric ulcer: Code(s): K25.3 - Acute gastric ulcer without hemorrhage or perforation Status: Acute Assessment and Plan: * Patient with dry coffee ground around mouth and on cheek. * GI consulted, appreciate recommendations. * EGD done. Showed: The esophagus was examined and the mucosa was normal with a normal Z-line and no ulcers or masses. A large hiatal hernia without obstruction was found at the GE junction. A single cratered acute benign ulcer measuring 12 mm was visualized in the fundus, in the proximal part of the hiatal hernia. There is no visible vessel of active bleeding. The stomach at the body, cardia and fundus was examined and was normal with no ulcers or masses. The bulb and second portion of duodenum was normal with no ulcers or masses. Coffee grounds noted in body. Hiatal hernia and acute gastric ulcer found. * Plan pantoprazole 40 mg IV q 12, NPO, Stop Eliquis, Check H&H every 12 hours. * Check stool for occult blood. (2) Fecal impaction: Code(s): K56.41 - Fecal impaction Status: Acute Assessment and Plan: * Patient had some nausea vomiting at the fpc likely due to fecal impaction. Her fall, and hindsight, is likely secondary to vasovagal event. Patient received Colace enema after arriving to the medical floor and subsequently went unresponsive while on the commode and had large amount of hard stool output followed by looser stool. Patient did have transient bradycardia with the event but vitals and blood pressure returned to normal. Mental status returned to normal shortly thereafter. * 2 bowel movements on 10/11/24. * Miralax 17 gram PO daily. * Docusate sod/senna tablet 1 tab PO daily. * Bisacodyl 10 mg WI daily PRN. (3) Nausea & vomiting: Qualifiers: Vomiting type: unspecified Qualified Code(s): R11.2 - Nausea with vomiting, unspecified Code(s): R11.2 - Nausea with vomiting, unspecified Status: Acute Assessment and Plan: * Prochlorperazine 10 mg IV q 6 PRN. (4) Vasovagal syncope: Code(s): R55 - Syncope and collapse Status: Acute Assessment and Plan: * Patient had some nausea vomiting at the fpc likely due to fecal impaction. Her fall, and hindsight, is likely secondary to vasovagal event. Patient received Colace enema after arriving to the medical floor and subsequently went unresponsive while on the commode and had large amount of hard stool output followed by looser stool. Patient did have transient bra dycardia with the event but vitals and blood pressure returned to normal. Mental status returned to normal shortly thereafter. Patient does have an elevated BUN from baseline likely has some component of hypovolemia which contributed to syncopal event. Will give 1 L fluids at 100 mL an hour repeat electrolyte panel and CBC in a.m. to re-evaluate. Patient's hemoglobin is relatively stable compared to last hospitalization and stool is brown without evidence of blood or melena. Will repeat CBC in a.m.. Will continue to monitor cardiac rhythm on telemetry. Unfortunately on review of telemetry during the patient's vagal event appears the patient had not been on telemetry for some time. Will monitor rhythm closely. The patient did have recent echocardiogram within the last 6 months so no need to repeat at this time. (5) Iron deficiency anemia: Qualifiers: Iron deficiency anemia type: chronic blood loss Qualified Code(s): D50.0 - Iron deficiency anemia secondary to blood loss (chronic) Code(s): D50.9 - Iron deficiency anemia, unspecified Status: Acute Assessment and Plan: * H&H 5.9/20.5. * Patient is being transfused 2 units of PRBC's. * Iron 93, TIBC 327, % sat 28. * Monitor levels. * CBC q 12. (6) Leukocytosis: Code(s): D72.829 - Elevated white blood cell count, unspecified Status: Acute Assessment and Plan: * WBC 15.9. * UA normal. * BCx2 ordered. * Afebrile. * Chest X-ray negative. * Monitor level. Subjective Date/time seen: 10/12/24 09:57 Interval history: H&H this morning 5.9/20.5. 2 units of PRBC's ordered. Patient sitting up in bed. Patient reports not feeling well this morning and mouth dry. Patient denies chest pain, palpitations, headache, or dizziness. Patient with dry coffee ground around mouth and on cheek. GI consulted. EGD done. Spoke to ex Cameron SALTER and daughter Brent Barnes at bedside after EGD. Review of Systems Review of Systems: All systems reviewed & are unremarkable except as noted in HPI and below Exam Const: General: no acute distress and uncomfortable Resp: Effort & Inspection: normal respiratory effort Auscultation: clear to auscultation bilaterally Cardio: Rate: tachycardic Other: Telemetry- ST 105. GI: GI Palp: Yes Soft to palpation Auscultation: normal bowel sounds Neuro: Speech: normal speech Extrem: General: no pedal edema Psych: Other: Cooperative, anxious appearing at times. Appearing more comfortable after receiving 1st unit of blood and EGD. Objective Data Vital Signs Vital Signs: Vital Signs - 24 hr 10/11/24 13:24 10/11/24 13:37 10/11/24 13:46 Temperature 97.4 F L Pulse Rate 87 89 Respiratory Rate 18 20 Blood Pressure 135/49 L 147/61 H 140/65 Pulse Oximetry 97 95 97 Oxygen Delivery Room Air Oxygen Flow Rate 10/11/24 15:19 10/11/24 15:32 10/11/24 15:46 Temperature Pulse Rate 90 88 91 Respiratory Rate 24 H 20 17 Blood Pressure 136/78 132/57 L Pulse Oximetry 95 97 99 Oxygen Delivery Oxygen Flow Rate 10/11/24 16:30 10/11/24 16:47 10/11/24 17:45 Temperature 97.8 F Pulse Rate 100 100 98 Respiratory Rate 16 19 18 Blood Pressure 131/55 L 149/58 H Pulse Oximetry 95 96 Oxygen Delivery Oxygen Flow Rate 10/11/24 20:00 10/11/24 20:01 10/11/24 22:00 Temperature 98.4 F Pulse Rate 98 89 Respiratory Rate 18 Blood Pressure 132/59 L Pulse Oximetry 98 Oxygen Delivery Room Air Oxygen Flow Rate 10/11/24 22:00 10/11/24 22:05 10/12/24 00:00 Temperature Pulse Rate 93 89 Respiratory Rate 18 Blood Pressure 129/40 L Pulse Oximetry 98 100 Oxygen Delivery Nasal Cannula Nasal Cannula Oxygen Flow Rate 2 3 10/12/24 04:00 10/12/24 06:00 10/12/24 09:35 Temperature 97.7 F 98.1 F Pulse Rate 94 99 93 Respiratory Rate 18 18 Blood Pressure 142/60 H 153/68 H Pulse Oximetry 91 100 Oxygen Delivery Oxygen Flow Rate 10/12/24 09:49 Temperature 98.1 F Pulse Rate 92 Respiratory Rate 16 Blood Pressure 153/68 H Pulse Oximetry 100 Oxygen Delivery Oxygen Flow Rate Intake/Output Intake/Output: Intake & Output 10/09/24 10/10/24 10/11/24 10/12/24 23:59 23:59 23:59 23:59 Output Total 75 600 Balance -75 -600 Meds/Results Medications: Active Medications Generic Name Dose Route Start Last Admin Trade Name Freq PRN Reason Stop Dose Admin Acetaminophen 650 mg 10/11/24 20:25 Acetaminophen 325 Mg Tablet PO Q4H PRN Pain 1-3 or fever Amlodipine Besylate 5 mg 10/12/24 09:00 Amlodipine Besylate 5 Mg Tablet PO DAILY [facility] Apixaban 5 mg 10/11/24 21:00 10/11/24 21:30 Apixaban 5 Mg Tablet PO 5 mg Q12HR [facility] Administration Diltiazem HCl 120 mg 10/12/24 09:00 Diltiazem Hcl Cd 120 Mg Cap.24hr PO DAILY [facility] Donepezil HCl 10 mg 10/11/24 21:00 10/11/24 21:30 Donepezil Hcl 10 Mg Tablet PO 10 mg HS ALEXIS Administration Duloxetine HCl 60 mg 10/12/24 09:00 Duloxetine Hcl 60 Mg Capsule.Dr PO DAILY ALEXIS Fluticasone Propionate 2 spray 10/12/24 09:00 Fluticasone Propionate 0.05% Na Spr 16 Gm Btl (*Bkc) NASAL DAILY [facility] Sodium Chloride 250 mls @ 30 mls/hr 10/12/24 07:06 10/12/24 09:04 Normal Saline Iv IV CONT 10/12/24 15:25 30 mls/hr .Q8H20M STA Administration Lamotrigine 100 mg 10/12/24 09:00 Lamotrigine 100 Mg Tablet PO DAILY [facility] Levetiracetam 250 mg 10/11/24 21:00 10/11/24 21:30 Levetiracetam 250 Mg Tablet PO 250 mg Q12HR ALEXIS Administration Lorazepam 0.5 mg 10/12/24 09:00 Lorazepam (*Crx) 0.5 Mg Tablet PO TID ALEXIS Magnesium Oxide 400 mg 10/12/24 09:00 Magnesium Oxide 400 Mg Tablet PO DAILY ALEXIS Melatonin 3 mg 10/11/24 21:00 10/11/24 21:30 Melatonin 3 Mg Tablet PO 3 mg HS ALEXIS Administration Mirabegron 25 mg 10/12/24 09:00 Mirabegron 25 Mg Er Tablet PO DAILY [facility] Miscellaneous Information 0 each 10/11/24 00:01 Please Verify Pt Takes Lorazepam Scheduled Instead Of Prn XX 11/10/24 00:00 CLARIFY ALEXIS Multivitamins/Calcium 1 tablet 10/12/24 09:00 Therapeutic Multivitamins/Minerals Tab (*Bkc) PO DAILY [facility] Pantoprazole Sodium 40 mg 10/11/24 21:00 10/11/24 21:30 Pantoprazole 40 Mg Tablet PO 40 mg Q12HR [facility] Administration Polyethylene Glycol 17 gm 10/12/24 09:00 Polyethylene Glycol 3350 17 Gm Powd.Pack PO DAILY [facility] Senna/Docusate Sodium 1 tab 10/12/24 09:00 Senna/Docusate Sodium Tablet PO DAILY [facility] Radiology Results: ITS Impressions Head/Neck CTA 10/11/24 15:07 IMPRESSION: 1. 40% stenosis of the right carotid bulb relative to normal distal artery lumen diameter (NASCET criteria). 2. 40% stenosis of the left carotid bulb relative to normal distal artery lumen diameter. 3. 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 4. 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 No acute intracranial process or abnormally enhancing brain lesions. 5. Cerebral CT angiogram demonstrates no hemodynamically significant stenosis, aneurysm or thrombosis. Of note the majority of flow to the posterior cerebral arteries appears to be supplied from the bilateral internal carotid arteries via patent bilateral posterior communicating arteries which are significantly larger than the diminutive bilateral P1 segments. Chest X-Ray 10/11/24 15:26 IMPRESSION: 1: NO ACUTE CARDIOPULMONARY DISEASE. Abdomen/Pelvis CT 10/11/24 15:34 IMPRESSION: Possible mild fecal impaction. No CT findings of stercoral colitis. Otherwise, no acute abdominopelvic process detected. Labs Labs: Laboratory Results - last 24 hr 10/11/24 10/11/24 10/11/24 13:43 14:12 14:41 WBC 9.5 RBC 2.91 L Hgb 8.7 L Hct 28.8 L MCV 99.0 MCH 29.9 MCHC 30.2 L RDW 16.2 H Plt Count 296 MPV 9.4 Immature Gran % (Auto) 0.6 H Neut % (Auto) 82.0 H Lymph % (Auto) 11.9 L [place] % (Auto) 5.0 Eos % (Auto) 0.3 Baso % (Auto) 0.2 Lymph # (Auto) 1.14 [place] # (Auto) 0.5 Eos # (Auto) 0.0 Baso # (Auto) 0.0 Abs Immat Gran (auto) 0.06 H Absolute Neuts (auto) 7.8 H Absolute Nucleated RBC 0.020 H Nucleated RBC % 0.2 PT 18.5 H INR 1.5 APTT 33.7 Sodium 141 Potassium 4.2 Chloride 109 H Carbon Dioxide 22 Anion Gap 10 BUN 47 H D Creatinine 1.01 H Estim Creat Clear Calc Not Reportable Estimated GFR 52 L Glucose 99 POC Capillary Glucose Calcium 9.2 Magnesium Iron TIBC % Saturation Ferritin Total Bilirubin 0.4 AST 24 ALT 13 Alkaline Phosphatase 69 Total Protein 6.5 Albumin 3.9 Lipase 240 Vitamin B12 Folate RBC Folate Urine Color Yellow Urine Appearance Clear Urine pH 5.5 Ur Specific [place] 1.015 Urine Protein Negative Urine Glucose (UA) Negative Urine Ketones Negative Ur Blood (Man) Trace-intact H Urine Nitrate Negative Urine Bilirubin Negative Urine Urobilinogen 0.2 Leukocyte Esterase Rfl Negative Influenza A (RT-PCR) Negative Influenza B (RT-PCR) Negative RSV (RT-PCR) Negative SARS-CoV-2 RNA (RT-PCR) Negative Blood Type Antibody Screen Crossmatch 10/11/24 10/12/24 10/12/24 22:05 04:35 04:45 WBC 14.8 H RBC 2.11 L Hgb 6.3 L* Hct 21.6 L MCV 102.4 H MCH 29.9 MCHC 29.2 L RDW 16.4 H Plt Count 270 MPV 9.9 Immature Gran % (Auto) Neut % (Auto) Lymph % (Auto) [place] % (Auto) Eos % (Auto) Baso % (Auto) Lymph # (Auto) [place] # (Auto) Eos # (Auto) Baso # (Auto) Abs Immat Gran (auto) Absolute Neuts (auto) Absolute Nucleated RBC Nucleated RBC % PT INR APTT Sodium 141 Potassium 4.1 Chloride 114 H Carbon Dioxide 20 L Anion Gap 7 BUN 53 H Creatinine 0.85 Estim Creat Clear Calc 40 Estimated GFR > 60 Glucose 100 POC Capillary Glucose 125 H Calcium 8.7 Magnesium 2.1 Iron 93 TIBC 327 % Saturation 28 Ferritin 18.40 Total Bilirubin AST ALT Alkaline Phosphatase Total Protein Albumin Lipase Vitamin B12 234.0 L Folate 7.2 RBC Folate Urine Color Urine Appearance Urine pH Ur Specific [place] Urine Protein Urine Glucose (UA) Urine Ketones Ur Blood (Man) Urine Nitrate Urine Bilirubin Urine Urobilinogen Leukocyte Esterase Rfl Influenza A (RT-PCR) Influenza B (RT-PCR) RSV (RT-PCR) SARS-CoV-2 RNA (RT-PCR) Blood Type Antibody Screen Crossmatch 10/12/24 10/12/24 06:22 06:27 WBC 15.9 H RBC 1.93 L Hgb 5.9 L* Hct 20.5 L* MCV 106.2 H MCH 30.6 MCHC 28.8 L RDW 16.7 H Plt Count 237 MPV 9.8 Immature Gran % (Auto) Neut % (Auto) Lymph % (Auto) [place] % (Auto) Eos % (Auto) Baso % (Auto) Lymph # (Auto) [place] # (Auto) Eos # (Auto) Baso # (Auto) Abs Immat Gran (auto) Absolute Neuts (auto) Absolute Nucleated RBC Nucleated RBC % PT INR APTT Sodium Potassium Chloride Carbon Dioxide Anion Gap BUN Creatinine Estim Creat Clear Calc Estimated GFR Glucose POC Capillary Glucose Calcium Magnesium Iron TIBC % Saturation Ferritin Total Bilirubin AST ALT Alkaline Phosphatase Total Protein Albumin Lipase Vitamin B12 Folate RBC Folate Cancelled Urine Color Urine Appearance Urine pH Ur Specific [place] Urine Protein Urine Glucose (UA) Urine Ketones Ur Blood (Man) Urine Nitrate Urine Bilirubin Urine Urobilinogen Leukocyte Esterase Rfl Influenza A (RT-PCR) Influenza B (RT-PCR) RSV (RT-PCR) SARS-CoV-2 RNA (RT-PCR) Blood Type A Positive Antibody Screen Negative Crossmatch See Detail Quality VTE Prophylaxis VTE prophylaxis: mechanical ordered
--- NOTE | 2024-10-12 10:21 | WPDGICN ---
Assessment and Plan Assessment and plan (1) Coffee ground emesis: Code(s): K92.0 - Hematemesis Status: Acute Assessment and Plan: Despite the absence of felicity hematemesis or melena, the acute drop in hemoglobin, along with the presence of coffee-ground material, strongly suggests an upper GI bleeding source. An urgent EGD (which will be done this morning) is warranted to rule out potential causes such as peptic ulcer disease, erosive gastritis, or esophagitis. Furthermore, sepsis is a significant concern given her acutely rising WBC, which could also contribute to the hemoglobin drop. We will obtain procalcitonin levels to further assess the possibility of bacterial infection and will continue to monitor her WBC trend, initiating antibiotic coverage if the elevation persists. Her reported abdominal pain and tenderness are likely attributable to her severe constipation, as there is no current CT evidence of acute intra-abdominal pathology or perforation. GI Consult Note Consult date/time: 10/12/24 10:21 HPI: Kenton Wilhelm is an 83-year-old female, a [facility] resident with a history of dementia and status post-CVA. She was admitted yesterday following a fall. She has a baseline of severe constipation. She has been experiencing nausea, vomiting, and abdominal pain, though a detailed history has been difficult to obtain due to her cognitive deficits. The nursing staff here reports alternating between very hard stools and diarrheal episodes, along with persistent abdominal discomfort. The reason for this consultation is a significant drop in her hemoglobin, from 8.7 at admission to 5.9 this morning. Her WBC increased from 9.5 to 16.9 today. While there's no overt melena, coffee-ground material was noted around her mouth and on her pillow, raising strong suspicion for an upper gastrointestinal bleed. Of note, she has a past medical history of bleeding from an AVM in her small bowel. Review of Systems Review of Systems: All systems reviewed & are unremarkable except as noted in HPI and below [facility] Past Medical History Medical History (Updated 10/11/24 @ 23:26 by Magaly Bermudez DO) AVM (arteriovenous malformation) of small bowel, acquired with hemorrhage Noted on EGD 09/02/2024 Anemia 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, 2019 Thoracic compression fracture T10 Essential hypertension Osteoporosis Frequent urinary tract infections history of ESBL E coli infection March 2018 Seizure disorder Schizoaffective disorder Hyperlipidemia Depression Dementia Paroxysmal atrial fibrillation Surgical History Surgical History History of arthroscopy of left shoulder History of total left hip arthroplasty (2015) History of bladder suspension procedure History of hysterectomy Family History Family History Sibling Dementia Cerebrovascular accident Sibling Acute myocardial infarction Mother Cirrhosis Father Emphysema of lung Social History Social History (Updated 10/11/24 @ 23:13 by Magaly Bermudez DO) Social History: Surrogate medical decision maker: Cameron Naranjo. Code status: DNR/DNI Smoking packs per day: 1 Smoking cigarettes per day: 20.0 Years smoked: 10 Smoking pack-years: 10.00 Smoking status: Former smoker Second hand tobacco smoke exposure: No Alcohol intake: never Substance use: never Substance use type: does not use Do You Feel Safe in your Home?: Yes Lack of Transportation: No Lack of Food: Never True Current Housing: I Have Housing Concerned About Future Housing: No Difficulty Paying Gas/Electric Bills: No Difficulty Paying for Meds: No Currently Unemployed: No Education: Grade School Difficulty w/ Childcare or Family Care: No Additional living arrangements comments: . Resident at [facility]. 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: No Agree to blood products: Yes Meds Home Medications and Allergies Home Medications ?Medication ?Instructions ?Recorded ?Confirmed ?Type cholecalciferol (vitamin D3) 1,250 50,000 unit PO WEEKLY 03/20/19 10/11/24 History mcg (50,000 unit) tablet donepezil 10 mg tablet 10 mg PO HS 03/20/19 10/11/24 History polyethylene glycol 3350 17 17 g PO DAILY PRN Constipation 03/20/19 10/11/24 History gram/dose oral powder (Miralax) duloxetine 60 mg capsule,delayed 60 mg PO DAILY 07/16/21 10/11/24 History release lamotrigine 100 mg tablet 100 mg PO DAILY 07/16/21 10/11/24 History levetiracetam 250 mg tablet 250 mg PO BID 07/16/21 10/11/24 History (Keppra) melatonin 3 mg tablet 3 mg PO HS 07/16/21 10/11/24 History fluticasone propionate 50 2 spray intranasal DAILY 04/05/22 10/11/24 History mcg/actuation nasal spray,suspension (Allergy Relief (fluticasone)) mirabegron 25 mg tablet,extended 25 mg PO DAILY 04/05/22 10/11/24 History release 24 hr (Myrbetriq) Marisol-Tussin 5 ml PO Q6H PRN Congestion 09/13/22 10/11/24 History acetaminophen 325 mg tablet 650 mg PO Q4H PRN Pain (Scale 09/13/22 10/11/24 History Score 1-3) magnesium oxide 1 tablet PO DAILY 09/13/22 10/11/24 History sennosides 8.6 mg-docusate sodium 1 tab-cap PO DAILY 06/06/23 10/11/24 History 50 mg tablet (Senna Plus) apixaban 5 mg tablet (Eliquis) 5 mg PO Q12HR #60 tabs 06/13/23 10/11/24 Rx diltiazem HCl 120 mg 120 mg PO DAILY #30 caps 06/13/23 10/11/24 Rx capsule,extended release 24 hr multivitamin with iron-mineral 1 tablet PO DAILY 08/31/24 10/11/24 History pantoprazole 40 mg tablet,delayed 40 mg PO Q12H 08/31/24 10/11/24 History release lorazepam 0.5 mg tablet 0.5 mg PO TID #1 tablet 09/06/24 10/11/24 Rx amlodipine 5 mg tablet 5 mg PO DAILY 10/11/24 10/11/24 History Allergies Allergy/AdvReac Type Severity Reaction Status Date / Time sertraline Allergy Severe Unknown Verified 10/11/24 17:52 hydromorphone Allergy Intermediate Unknown Verified 10/11/24 17:52 Vital Signs Vital Signs - 24 hr 10/11/24 13:24 10/11/24 13:37 10/11/24 13:46 Temperature 97.4 F L Pulse Rate 87 89 Respiratory Rate 18 20 Blood Pressure 135/49 L 147/61 H 140/65 Pulse Oximetry 97 95 97 Oxygen Delivery Room Air Oxygen Flow Rate 10/11/24 15:19 10/11/24 15:32 10/11/24 15:46 Temperature Pulse Rate 90 88 91 Respiratory Rate 24 H 20 17 Blood Pressure 136/78 132/57 L Pulse Oximetry 95 97 99 Oxygen Delivery Oxygen Flow Rate 10/11/24 16:30 10/11/24 16:47 10/11/24 17:45 Temperature 97.8 F Pulse Rate 100 100 98 Respiratory Rate 16 19 18 Blood Pressure 131/55 L 149/58 H Pulse Oximetry 95 96 Oxygen Delivery Oxygen Flow Rate 10/11/24 20:00 10/11/24 20:01 10/11/24 22:00 Temperature 98.4 F Pulse Rate 98 89 Respiratory Rate 18 Blood Pressure 132/59 L Pulse Oximetry 98 Oxygen Delivery Room Air Oxygen Flow Rate 10/11/24 22:00 10/11/24 22:05 10/12/24 00:00 Temperature Pulse Rate 93 89 Respiratory Rate 18 Blood Pressure 129/40 L Pulse Oximetry 98 100 Oxygen Delivery Nasal Cannula Nasal Cannula Oxygen Flow Rate 2 3 10/12/24 04:00 10/12/24 06:00 10/12/24 09:35 Temperature 97.7 F 98.1 F Pulse Rate 94 99 93 Respiratory Rate 18 18 Blood Pressure 142/60 H 153/68 H Pulse Oximetry 91 100 Oxygen Delivery Oxygen Flow Rate 10/12/24 09:49 10/12/24 10:00 10/12/24 10:12 Temperature 98.1 F 98.7 F Pulse Rate 92 95 Respiratory Rate 16 14 Blood Pressure 153/68 H 150/73 H Pulse Oximetry 100 97 96 Oxygen Delivery Room Air Oxygen Flow Rate Exam Narrative: Weight 71.2 kg BMI 27.8 Const: Other: Well-developed, well-nourished, elderly, chronically ill-appearing HENMT: Other: Mucous membranes are dry, no oral pharyngeal erythema, head is normocephalic atraumatic Eyes: Other: Pupils are equal and reactive, positive conjunctival pallor, no scleral icterus Neck: Other: No JVD, no lymphadenopathy Resp: Other: Clear to auscultation bilaterally, no increased work of breathing Cardio: Other: Regular rate, regular rhythm, 2+ bilateral radial pedal pulses, 2/6 systolic murmur heard best at the left upper sternal border GI: Other: Soft, fullness in the right upper abdomen, grimaces with palpation of the abdomen, hypoactive bowel sounds, no organomegaly : Other: Incontinent of urine with pure wick in place, during rapid response patient was incontinent of stool Skin: Other: Generalized pallor, non jaundice, cool to touch, 3-4 second cap refill Neuro: Other: Patient is alert oriented to self, speech is clear and answers direct questions and speech is intermittently slurred, sensation is intact all extremities, no obvious facial asymmetry, moves all extremities equally Extrem: Other: Moving extremities equally, no clubbing, no cyanosis Psych: Other: Pleasantly confused, cooperative Results Labs 10/12/24 06:27 10/12/24 04:45 Labs: Short CBC 10/11/24 10/12/24 10/12/24 Range/Units 13:43 04:45 06:27 WBC 9.5 14.8 H 15.9 H (4.5-10.0) K/mm3 Hgb 8.7 L 6.3 L* 5.9 L* (12.0-15.0) g/dL Hct 28.8 L 21.6 L 20.5 L* (37.0-47.0) % Plt Count 296 270 237 (150-375) k/mm3 BMP 10/11/24 10/12/24 13:43 04:45 Sodium 141 141 Potassium 4.2 4.1 Chloride 109 H 114 H Carbon Dioxide 22 20 L BUN 47 H D 53 H Creatinine 1.01 H 0.85 Glucose 99 100 Calcium 9.2 8.7 Liver Function 10/11/24 Range/Units 13:43 Total Bilirubin 0.4 (0.2-1.3) mg/dL AST 24 (14-36) U/L ALT 13 (6-35) U/L Alkaline Phosphatase 69 (38-126) U/L Albumin 3.9 (3.5-5.1) g/dL Urine 10/11/24 Range/Units 14:41 Urine Color Yellow (Yellow) Urine Appearance Clear (Clear) Urine pH 5.5 (5.0-9.0) Ur Specific [place] 1.015 (1.001-1.035) Urine Protein Negative (Negative) mg/dL Urine Glucose (UA) Negative (Negative) mg/dL
--- NOTE | 2024-10-12 10:51 | WPDANESEPP ---
Anes - Eval Pre Procedure Procedure: Operation Date: 10/12/24 11:00 Proposed Procedures p Esophagogastroduodenoscopy - Keshav See MD Date/Time: 10/12/24 10:51 Pre Op Diagnosis: CVA/Slurred Speech Patient Data Age: 83 Gender: F Height: 1.6 m Weight: 71.2 kg Last Vital Signs Temp 98.7 F 10/12/24 10:12 Pulse 95 10/12/24 10:12 Resp 14 10/12/24 10:12 BP 150/73 H 10/12/24 10:12 Pulse Ox 96 10/12/24 10:12 O2 Del Method Room Air 10/12/24 10:00 O2 Flow Rate 3 10/11/24 22:05 Allergies Allergy/AdvReac Type Severity Reaction Status Date / Time sertraline Allergy Severe Unknown Verified 10/11/24 17:52 hydromorphone Allergy Intermediate Unknown Verified 10/11/24 17:52 Home Medications ?Medication ?Instructions ?Recorded ?Confirmed ?Type cholecalciferol (vitamin D3) 1,250 50,000 unit PO WEEKLY 03/20/19 10/11/24 History mcg (50,000 unit) tablet donepezil 10 mg tablet 10 mg PO HS 03/20/19 10/11/24 History polyethylene glycol 3350 17 17 g PO DAILY PRN Constipation 03/20/19 10/11/24 History gram/dose oral powder (Miralax) duloxetine 60 mg capsule,delayed 60 mg PO DAILY 07/16/21 10/11/24 History release lamotrigine 100 mg tablet 100 mg PO DAILY 07/16/21 10/11/24 History levetiracetam 250 mg tablet 250 mg PO BID 07/16/21 10/11/24 History (Keppra) melatonin 3 mg tablet 3 mg PO HS 07/16/21 10/11/24 History fluticasone propionate 50 2 spray intranasal DAILY 04/05/22 10/11/24 History mcg/actuation nasal spray,suspension (Allergy Relief (fluticasone)) mirabegron 25 mg tablet,extended 25 mg PO DAILY 04/05/22 10/11/24 History release 24 hr (Myrbetriq) Marisol-Tussin 5 ml PO Q6H PRN Congestion 09/13/22 10/11/24 History acetaminophen 325 mg tablet 650 mg PO Q4H PRN Pain (Scale 09/13/22 10/11/24 History Score 1-3) magnesium oxide 1 tablet PO DAILY 09/13/22 10/11/24 History sennosides 8.6 mg-docusate sodium 1 tab-cap PO DAILY 06/06/23 10/11/24 History 50 mg tablet (Senna Plus) apixaban 5 mg tablet (Eliquis) 5 mg PO Q12HR #60 tabs 06/13/23 10/11/24 Rx diltiazem HCl 120 mg 120 mg PO DAILY #30 caps 06/13/23 10/11/24 Rx capsule,extended release 24 hr multivitamin with iron-mineral 1 tablet PO DAILY 08/31/24 10/11/24 History pantoprazole 40 mg tablet,delayed 40 mg PO Q12H 08/31/24 10/11/24 History release lorazepam 0.5 mg tablet 0.5 mg PO TID #1 tablet 09/06/24 10/11/24 Rx amlodipine 5 mg tablet 5 mg PO DAILY 10/11/24 10/11/24 History Laboratory Tests 10/11/24 10/11/24 10/11/24 13:43 14:12 14:41 WBC 9.5 K/mm3 (4.5-10.0) RBC 2.91 L M/mm3 (4.2-5.4) Hgb 8.7 L g/dL (12.0-15.0) Hct 28.8 L % (37.0-47.0) MCV 99.0 fl (80-100) MCH 29.9 pg (26-34) MCHC 30.2 L g/dl (32-36) RDW 16.2 H % (11.5-14.5) Plt Count 296 k/mm3 (150-375) MPV 9.4 fl (7.4-10.4) Immature Gran % (Auto) 0.6 H % (0-0.5) Neut % (Auto) 82.0 H % (45.5-73.1) Lymph % (Auto) 11.9 L % (18.3-44.2) [place] % (Auto) 5.0 % (2.6-8.5) Eos % (Auto) 0.3 % (0-4.4) Baso % (Auto) 0.2 % (0.2-1.2) Lymph # (Auto) 1.14 K/mm3 (0.9-3.2) [place] # (Auto) 0.5 K/mm3 (0.1-0.6) Eos # (Auto) 0.0 K/mm3 (0-0.3) Baso # (Auto) 0.0 K/mm3 (0.0-0.1) Abs Immat Gran (auto) 0.06 H K/mm3 (0.00-0.031) Absolute Neuts (auto) 7.8 H K/mm3 (1.3-6.7) Absolute Nucleated RBC 0.020 H K/mm3 (0.0-0.012) Nucleated RBC % 0.2 % (0.0-0.2) PT 18.5 H Seconds (11.1-14.7) INR 1.5 APTT 33.7 Seconds (22.3-36.8) Sodium 141 mmol/L (137-145) Potassium 4.2 mmol/L (3.4-5.0) Chloride 109 H mmol/L (98-107) Carbon Dioxide 22 mmol/L (22-30) Anion Gap 10 mmol/L (4-12) BUN 47 H D mg/dL (7-17) Creatinine 1.01 H mg/dL (0.7-1.0) Estim Creat Clear Calc Not Reportable Estimated GFR 52 L (59 - ) Glucose 99 mg/dL (65-110) POC Capillary Glucose Calcium 9.2 mg/dL (8.4-10.2) Magnesium Iron TIBC % Saturation Ferritin Total Bilirubin 0.4 mg/dL (0.2-1.3) AST 24 U/L (14-36) ALT 13 U/L (6-35) Alkaline Phosphatase 69 U/L (38-126) Total Protein 6.5 g/dL (6.3-8.2) Albumin 3.9 g/dL (3.5-5.1) Lipase 240 U/L (23-300) Vitamin B12 Folate RBC Folate Urine Color Yellow (Yellow) Urine Appearance Clear (Clear) Urine pH 5.5 (5.0-9.0) Ur Specific [place] 1.015 (1.001-1.035) Urine Protein Negative mg/dL (Negative) Urine Glucose (UA) Negative mg/dL (Negative) Urine Ketones Negative mg/dL (Negative) Ur Blood (Man) Trace-intact H (Negative) Urine Nitrate Negative (Negative) Urine Bilirubin Negative (Negative) Urine Urobilinogen 0.2 mg/dL (<2.0) Leukocyte Esterase Rfl Negative JOVANY/UL (Negative) Influenza A (RT-PCR) Negative (Negative) Influenza B (RT-PCR) Negative (Negative) RSV (RT-PCR) Negative (Negative) SARS-CoV-2 RNA (RT-PCR) Negative (Negative) Blood Type Antibody Screen Crossmatch 10/11/24 10/12/24 10/12/24 22:05 04:35 04:45 WBC 14.8 H K/mm3 (4.5-10.0) RBC 2.11 L M/mm3 (4.2-5.4) Hgb 6.3 L* g/dL (12.0-15.0) Hct 21.6 L % (37.0-47.0) MCV 102.4 H fl (80-100) MCH 29.9 pg (26-34) MCHC 29.2 L g/dl (32-36) RDW 16.4 H % (11.5-14.5) Plt Count 270 k/mm3 (150-375) MPV 9.9 fl (7.4-10.4) Immature Gran % (Auto) Neut % (Auto) Lymph % (Auto) [place] % (Auto) Eos % (Auto) Baso % (Auto) Lymph # (Auto) [place] # (Auto) Eos # (Auto) Baso # (Auto) Abs Immat Gran (auto) Absolute Neuts (auto) Absolute Nucleated RBC Nucleated RBC % PT INR APTT Sodium 141 mmol/L (137-145) Potassium 4.1 mmol/L (3.4-5.0) Chloride 114 H mmol/L (98-107) Carbon Dioxide 20 L mmol/L (22-30) Anion Gap 7 mmol/L (4-12) BUN 53 H mg/dL (7-17) Creatinine 0.85 mg/dL (0.7-1.0) Estim Creat Clear Calc 40 ml/min Estimated GFR > 60 (59 - ) Glucose 100 mg/dL (65-110) POC Capillary Glucose 125 H mg/dl (65-105) Calcium 8.7 mg/dL (8.4-10.2) Magnesium 2.1 mg/dL (1.6-2.3) Iron 93 ug/dL (37-170) TIBC 327 ug/dL (261-462) % Saturation 28 % (20-50) Ferritin 18.40 ng/mL (11.1-264) Total Bilirubin AST ALT Alkaline Phosphatase Total Protein Albumin Lipase Vitamin B12 234.0 L pg/mL (239-931) Folate 7.2 ng/mL (2.76->20) RBC Folate Urine Color Urine Appearance Urine pH Ur Specific [place] Urine Protein Urine Glucose (UA) Urine Ketones Ur Blood (Man) Urine Nitrate Urine Bilirubin Urine Urobilinogen Leukocyte Esterase Rfl Influenza A (RT-PCR) Influenza B (RT-PCR) RSV (RT-PCR) SARS-CoV-2 RNA (RT-PCR) Blood Type Antibody Screen Crossmatch 10/12/24 10/12/24 06:22 06:27 WBC 15.9 H K/mm3 (4.5-10.0) RBC 1.93 L M/mm3 (4.2-5.4) Hgb 5.9 L* g/dL (12.0-15.0) Hct 20.5 L* % (37.0-47.0) MCV 106.2 H fl (80-100) MCH 30.6 pg (26-34) MCHC 28.8 L g/dl (32-36) RDW 16.7 H % (11.5-14.5) Plt Count 237 k/mm3 (150-375) MPV 9.8 fl (7.4-10.4) Immature Gran % (Auto) Neut % (Auto) Lymph % (Auto) [place] % (Auto) Eos % (Auto) Baso % (Auto) Lymph # (Auto) [place] # (Auto) Eos # (Auto) Baso # (Auto) Abs Immat Gran (auto) Absolute Neuts (auto) Absolute Nucleated RBC Nucleated RBC % PT INR APTT Sodium Potassium Chloride Carbon Dioxide Anion Gap BUN Creatinine Estim Creat Clear Calc Estimated GFR Glucose POC Capillary Glucose Calcium Magnesium Iron TIBC % Saturation Ferritin Total Bilirubin AST ALT Alkaline Phosphatase Total Protein Albumin Lipase Vitamin B12 Folate RBC Folate Cancelled Urine Color Urine Appearance Urine pH Ur Specific [place] Urine Protein Urine Glucose (UA) Urine Ketones Ur Blood (Man) Urine Nitrate Urine Bilirubin Urine Urobilinogen Leukocyte Esterase Rfl Influenza A (RT-PCR) Influenza B (RT-PCR) RSV (RT-PCR) SARS-CoV-2 RNA (RT-PCR) Blood Type A Positive Antibody Screen Negative Crossmatch See Detail ECG: Test Date: 2024-10-11 13:50:30 Measurements Intervals [place] Rate: 83 P: 10 AL: 152 QRS: 4 QRSD: 130 T: 68 QT: 394 QTc: 463 Interpretive Statements SINUS RHYTHM LEFT BUNDLE BRANCH BLOCK BASELINE ARTIFACT- I, III, AVR, AVL, AVF ABNORMAL ECG Compared to ECG 09/06/2024 10:23:12 No significant changes Electronically Signed On 10-11-2024 14:04:29 CDT by Vladimir Sosa D.O. May 2023 pt was admitted with AFIB RVR rate 140's. pt medically managed and converted.. all ECG since that admission (there have been multiple in the months since) show SR with LBBB. Other studies: May 2024 ECHO report: Summary 1. Complete two-dimensional, color flow and Doppler transthoracic echocardiogram is performed. 2. Left ventricular systolic function is normal, estimated at 50-55%. 3. Left ventricular septal wall motion is abnormal with septal motion related to bundle branch block. 4. The left ventricular diastolic function is grade I diastolic dysfunction. 5. There is mild aortic valve regurgitation. 6. There is mild aortic valve calcification. 7. There is mild tricuspid valve regurgitation. 8. Mild pulmonary hypertension, estimated pulmonary arterial systolic pressure is 37 mmHg. 9. There is mild pulmonic regurgitation. Patient hx anesthesia problems: none Family hx anesthesia problems: none Results Review: All pre-operative results and documents have been reviewed as part of the pre-operative evaluation. [facility] Past Medical History Medical History (Updated 10/12/24 @ 11:04 by Meryl Morales CRNA) AVM (arteriovenous malformation) of small bowel, acquired with hemorrhage Noted on EGD 09/02/2024 Anemia acute on chronic. admitted with HGB 9.9 with downward trend, currently 5.9 receiving 2 units packed cells. 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, 2019 Thoracic compression fracture T10 Essential hypertension Osteoporosis Frequent urinary tract infections history of ESBL E coli infection March 2018 Seizure disorder Schizoaffective disorder Hyperlipidemia Depression Dementia Paroxysmal atrial fibrillation Surgical History Surgical History History of arthroscopy of left shoulder History of total left hip arthroplasty (2015) History of bladder suspension procedure History of hysterectomy Family History Family History Sibling Dementia Cerebrovascular accident Sibling Acute myocardial infarction Mother Cirrhosis Father Emphysema of lung Social History Social History (Updated 10/11/24 @ 23:13 by Magaly Bermudez DO) Social History: Surrogate medical decision maker: Cameron Naranjo. Code status: DNR/DNI Smoking packs per day: 1 Smoking cigarettes per day: 20.0 Years smoked: 10 Smoking pack-years: 10.00 Smoking status: Former smoker Second hand tobacco smoke exposure: No Alcohol intake: never Substance use: never Substance use type: does not use Do You Feel Safe in your Home?: Yes Lack of Transportation: No Lack of Food: Never True Current Housing: I Have Housing Concerned About Future Housing: No Difficulty Paying Gas/Electric Bills: No Difficulty Paying for Meds: No Currently Unemployed: No Education: Grade School Difficulty w/ Childcare or Family Care: No Additional living arrangements comments: . Resident at [facility]. 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: No Agree to blood products: Yes Exam Day of Procedure 10/12/24 10:51
[2024-10-12] MEDS: LACTATED RINGERS 1,000 ML 150 ML IV CONT (11:51)
--- NOTE | 2024-10-12 13:12 | PC.NURSE ---
Patient back on floor from EGD ([id number]).
[2024-10-12 13:27] LABS: Procalcitonin 0.2 ng/mL
[2024-10-12 17:46] LABS: Basophils Percent Auto 0.1 % (0.2-1.2); Hematocrit 27.3 % (37.0-47.0); Hemoglobin 8.9 g/dL (12.0-15.0); Immature Granulocyte Absolute 0.12 K/mm3 (0.00-0.031); Immature Granulocyte Percent A 0.8 % (0-0.5); Lymphocytes Absolute Auto 1.26 K/mm3 (0.9-3.2); Lymphocytes Percent Auto 8.5 % (18.3-44.2); Mean Corpuscular HGB Conc 32.6 g/dl (32-36); Mean Corpuscular Hemoglobin 31.3 pg (26-34); Mean Corpuscular Volume 96.1 fl (80-100); Mean Platelet Volume 9.5 fl (7.4-10.4); Monocytes Percent Auto 6.4 % (2.6-8.5); Neutrophils Absolute Auto 12.4 K/mm3 (1.3-6.7); Neutrophils Percent Auto 84.2 % (45.5-73.1); Nucleated Red Blood Cells Perc 0.2 % (0.0-0.2); Platelet Count Result 187 k/mm3 (150-375); Red Blood Count 2.84 M/mm3 (4.2-5.4); Red Cell Distribution Width 15.1 % (11.5-14.5); White Blood Count 14.8 K/mm3 (4.5-10.0)
--- NOTE | 2024-10-12 20:20 | PM.EVENT ---
Event Note Event Note Event Note: Patient's labs were reviewed. B12 level was low. Cyanocobalamin 1 g ordered IM weekly for 4 weeks.
[2024-10-12] MEDS: levETIRAcetam 250 MG TABLET PO (20:59)
[2024-10-12] MEDS: LORazepam (*CRX) 0.5 MG TABLET PO (20:59)
[2024-10-12] MEDS: MELATONIN 3 MG TABLET PO (21:00)
[2024-10-12] MEDS: DONEPEZIL HCL 10 MG TABLET PO (21:00)
[2024-10-12] MEDS: MAGNESIUM OXIDE 400 MG TABLET PO (21:05)
[2024-10-12] MEDS: FLUTICASONE PROPIONATE 0.05% NA SPR 16 GM BTL (*BKC) 2 SPRAY NASAL (21:05)
[2024-10-12] MEDS: DULoxetine HCL 60 MG CAPSULE.DR PO (21:05)
[2024-10-12] MEDS: SENNA/DOCUSATE SODIUM TABLET 1 TAB PO (21:05)
[2024-10-12] MEDS: PANTOPRAZOLE SODIUM IV 40 MG VIAL IV PUSH (21:19)
[2024-10-12] MEDS: CYANOCOBALAMIN INJ 1,000 MCG/ML VIAL 1000 MCG IM (21:19)
[2024-10-12] MEDS: PROCHLORPERAZINE EDISYLATE 10 MG/2 ML VIAL IV PUSH (21:19)
[2024-10-13] VITALS (9 sets, daily range): BP systolic 94–130; BP diastolic 43–70; PULSE 62–108; RESP 16–20; TEMP 36.6–37.1; O2SAT 91–95
[2024-10-13 05:05] LABS: Basophils Percent Auto 0.2 % (0.2-1.2); Eosinophils Percent Auto 0.2 % (0-4.4); Hematocrit 24.2 % (37.0-47.0); Hemoglobin 7.8 g/dL (12.0-15.0); Immature Granulocyte Absolute 0.12 K/mm3 (0.00-0.031); Immature Granulocyte Percent A 0.9 % (0-0.5); Lymphocytes Absolute Auto 1.12 K/mm3 (0.9-3.2); Lymphocytes Percent Auto 8.7 % (18.3-44.2); Mean Corpuscular HGB Conc 32.2 g/dl (32-36); Mean Corpuscular Hemoglobin 31.7 pg (26-34); Mean Corpuscular Volume 98.4 fl (80-100); Mean Platelet Volume 9.9 fl (7.4-10.4); Monocytes Absolute Auto 0.8 K/mm3 (0.1-0.6); Monocytes Percent Auto 5.8 % (2.6-8.5); Neutrophils Absolute Auto 10.9 K/mm3 (1.3-6.7); Neutrophils Percent Auto 84.2 % (45.5-73.1); Nucleated Red Blood Cells Perc 0.3 % (0.0-0.2); Platelet Count Result 159 k/mm3 (150-375); Red Blood Count 2.46 M/mm3 (4.2-5.4); Red Cell Distribution Width 15.9 % (11.5-14.5); White Blood Count 12.9 K/mm3 (4.5-10.0)
[2024-10-13 05:27] LABS: Alanine Aminotransferase 12 U/L (6-35); Alkaline Phosphatase 52 U/L (38-126); Anion Gap 6 mmol/L (4-12); Aspartate Amino Transferase 22 U/L (14-36); Bilirubin,Total 0.8 mg/dL (0.2-1.3); Blood Urea Nitrogen 26 mg/dL (7-17); Calcium 8.7 mg/dL (8.4-10.2); Carbon Dioxide 23 mmol/L (22-30); Chloride 115 mmol/L (98-107); Estimated CRCL calculation 36 ml/min; Estimated Glomerular Filt Rate 56; Glucose 100 mg/dL (65-110); Magnesium 2.3 mg/dL (1.6-2.3); Sodium 144 mmol/L (137-145); Total Protein 5.5 g/dL (6.3-8.2)
[2024-10-13] MEDS: dilTIAZem HCL CD 120 MG CAP.24HR PO (06:27)
[2024-10-13] MEDS: DULoxetine HCL 60 MG CAPSULE.DR PO (09:16)
[2024-10-13] MEDS: levETIRAcetam 250 MG TABLET PO ×2 (09:16→20:45)
[2024-10-13] MEDS: MAGNESIUM OXIDE 400 MG TABLET PO (09:16)
[2024-10-13] MEDS: amLODIPine BESYLATE 5 MG TABLET PO (09:16)
[2024-10-13] MEDS: THERAPEUTIC MULTIVITAMINS/MINERALS TAB (*BKC) 1 TABLET PO (09:16)
[2024-10-13] MEDS: MIRABEGRON 25 MG ER TABLET PO (09:16)
[2024-10-13] MEDS: FLUTICASONE PROPIONATE 0.05% NA SPR 16 GM BTL (*BKC) 2 SPRAY NASAL (09:17)
[2024-10-13] MEDS: lamoTRIgine 100 MG TABLET PO (09:17)
[2024-10-13] MEDS: SENNA/DOCUSATE SODIUM TABLET 1 TAB PO (09:17)
[2024-10-13] MEDS: polyethylene glycoL 3350 17 GM POWD.PACK PO (09:17)
[2024-10-13] MEDS: PANTOPRAZOLE SODIUM IV 40 MG VIAL IV PUSH ×2 (09:17→20:51)
--- NOTE | 2024-10-13 11:00 | P.PNIM_ITS ---
Progress Note: A&P Assessment and Plan (1) Acute gastric ulcer: Code(s): K25.3 - Acute gastric ulcer without hemorrhage or perforation Status: Acute Assessment and Plan: * Patient with dry coffee ground around mouth and on cheek on 10/12/2024. * GI consulted, appreciate recommendations. * EGD done. Showed: The esophagus was examined and the mucosa was normal with a normal Z-line and no ulcers or masses. A large hiatal hernia without obstruction was found at the GE junction. A single cratered acute benign ulcer measuring 12 mm was visualized in the fundus, in the proximal part of the hiatal hernia. There is no visible vessel of active bleeding. The stomach at the body, cardia and fundus was examined and was normal with no ulcers or masses. The bulb and second portion of duodenum was normal with no ulcers or masses. Coffee grounds noted in body. Hiatal hernia and acute gastric ulcer found. * 10/12/24:Plan pantoprazole 40 mg IV q 12, NPO, Stop Eliquis, Check H&H every 12 hours. * Check stool for occult blood. * Start on clear liquid diet for lunch and full liquid for supper. (2) Fecal impaction: Code(s): K56.41 - Fecal impaction Status: Acute Assessment and Plan: * Patient had some nausea vomiting at the [facility] likely due to fecal impaction. Her fall, and hindsight, is likely secondary to vasovagal event. Patient received Colace enema after arriving to the medical floor and subsequently went unresponsive while on the commode and had large amount of hard stool output followed by looser stool. Patient did have transient bradycardia with the event but vitals and blood pressure returned to normal. Mental status returned to normal shortly thereafter. * 2 bowel movements on 10/11/24. * Miralax 17 gram PO daily. * Docusate sod/senna tablet 1 tab PO daily. * Bisacodyl 10 mg [place] daily PRN. (3) Nausea & vomiting: Qualifiers: Vomiting type: unspecified Qualified Code(s): R11.2 - Nausea with vomiting, unspecified Code(s): R11.2 - Nausea with vomiting, unspecified Status: Acute Assessment and Plan: * Prochlorperazine 10 mg IV q 6 PRN. (4) Vasovagal syncope: Code(s): R55 - Syncope and collapse Status: Acute Assessment and Plan: * Patient had some nausea vomiting at the [facility] likely due to fecal impaction. Her fall, and hindsight, is likely secondary to vasovagal event. Patient received Colace enema after arriving to the medical floor and subsequently went unresponsive while on the commode and had large amount of hard stool output followed by looser stool. Patient did have transient bradycardia with the event but vitals and blood pressure returned to normal. Mental status returned to normal shortly thereafter. Patient does have an elevated BUN from baseline likely has some component of hypovolemia which contributed to syncopal event. Will give 1 L fluids at 100 mL an hour repeat electrolyte panel and CBC in a.m. to re-evaluate. Patient's hemoglobin is relatively stable compared to last hospitalization and stool is brown without evidence of blood or melena. Will repeat CBC in a.m.. Will continue to monitor cardiac rhythm on telemetry. Unfortunately on review of telemetry during the patient's vagal event appears the patient had not been on telemetry for some time. Will monitor rhythm closely. The patient did have recent echocardiogram within the last 6 months so no need to repeat at this time. 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 * Patient transfused 2 units of PRBC's on 10/12 with post H&H of 8.9/27.3. * Iron 93, TIBC 327, % sat 28. * Monitor levels. * CBC q 12. * Transfuse if Hgb <7. (6) Paroxysmal atrial fibrillation: Code(s): I48.0 - Paroxysmal atrial fibrillation Status: Chronic Assessment and Plan: * Atrial fibrillation rate 93. * Eliquis stopped due to ulcer and drop in blood counts. * Diltiazem 120 mg PO daily. (7) Leukocytosis: Code(s): D72.829 - Elevated white blood cell count, unspecified Status: Acute Assessment and Plan: * WBC 15.9>14.8>12.9. * UA normal. * BCx2 no growth to date. * Afebrile. * Chest X-ray negative. * Monitor level. (8) B12 deficiency: Code(s): E53.8 - Deficiency of other specified B group vitamins Status: Acute Assessment and Plan: * B12 level 234. * Cyanocobalamin 1,000 mcg IM weekly x 4 weeks. Subjective Date/time seen: 10/13/24 11:00 Interval history: Patient denies chest pain, palpitations, headache, dizziness, nausea, or vomiting. Patient started on clear liquids and tolerating. No further coffee ground emesis and no bloody stools. Review of Systems Review of Systems: All systems reviewed & are unremarkable except as noted in HPI and below Exam Const: General: no acute distress Resp: Effort & Inspection: normal respiratory effort Auscultation: clear to auscultation bilaterally Cardio: Rhythm: abnormal rhythm irregularly irregular (Atrial fib 93. ) GI: GI Palp: Yes Soft to palpation Auscultation: normal bowel sounds Extrem: General: no pedal edema Psych: Affect: normal affect Other: oriented to person and hospital. Objective Data Vital Signs Vital Signs: Vital Signs - 24 hr 10/12/24 11:45 10/12/24 12:25 10/12/24 12:35 Temperature 98.1 F 97.1 F L 97.4 F L Pulse Rate 93 75 77 Respiratory Rate 18 20 18 Blood Pressure 111/56 L 114/78 116/44 L Pulse Oximetry 99 100 98 Oxygen Delivery Room Air Room Air Room Air 10/12/24 12:45 10/12/24 13:25 10/12/24 13:53 Temperature 97.8 F 98.5 F 98.8 F Pulse Rate 76 84 86 Respiratory Rate 20 16 14 Blood Pressure 126/50 L 138/88 133/88 Pulse Oximetry 97 97 98 Oxygen Delivery Room Air 10/12/24 14:00 10/12/24 14:16 10/12/24 15:09 Temperature 97.9 F 98 F Pulse Rate 74 85 84 Respiratory Rate 18 14 20 Blood Pressure 134/50 L 134/50 L 142/95 H Pulse Oximetry 99 99 98 Oxygen Delivery 10/12/24 15:10 10/12/24 16:00 10/12/24 16:15 Temperature 98 F 98 F Pulse Rate 20 L 88 85 Respiratory Rate 20 18 Blood Pressure 142/45 H 142/40 H Pulse Oximetry 99 96 Oxygen Delivery 10/12/24 20:00 10/12/24 20:00 10/12/24 20:23 Temperature 98.0 F Pulse Rate 89 94 Respiratory Rate 16 Blood Pressure 139/53 L Pulse Oximetry 99 Oxygen Delivery Room Air 10/13/24 00:00 10/13/24 04:00 10/13/24 06:17 Temperature 97.9 F Pulse Rate 95 78 100 Respiratory Rate 16 Blood Pressure 130/70 Pulse Oximetry 95 Oxygen Delivery Intake/Output Intake/Output: Intake & Output 10/10/24 10/11/24 10/12/24 10/13/24 23:59 23:59 23:59 23:59 Intake Total 1000 0 Output Total 75 800 450 Balance -75 200 -450 Meds/Results Medications: Active Medications Generic Name Dose Route Start Last Admin Trade Name Freq PRN Reason Stop Dose Admin Acetaminophen 650 mg 10/11/24 20:25 Acetaminophen 325 Mg Tablet PO Q4H PRN Pain 1-3 or fever Amlodipine Besylate 5 mg 10/12/24 09:00 10/13/24 09:16 Amlodipine Besylate 5 Mg Tablet PO 5 mg DAILY ALEXIS Administration Bisacodyl 10 mg 10/12/24 15:11 Bisacodyl 10 Mg Suppository RECTAL DAILY PRN Constipation Cyanocobalamin 1,000 mcg 10/12/24 20:30 10/12/24 21:19 Cyanocobalamin Inj 1,000 Mcg/Ml Vial IM 11/02/24 09:01 1,000 mcg WEEKLY ALEXIS Administration Diltiazem HCl 120 mg 10/12/24 09:00 10/13/24 06:27 Diltiazem Hcl Cd 120 Mg Cap.24hr PO 120 mg DAILY ALEXIS Administration Donepezil HCl 10 mg 10/11/24 21:00 10/12/24 21:00 Donepezil Hcl 10 Mg Tablet PO 10 mg HS ALEXIS Administration Duloxetine HCl 60 mg 10/12/24 09:00 10/13/24 09:16 Duloxetine Hcl 60 Mg Capsule.Dr PO 60 mg DAILY ALEXIS Administration Fluticasone Propionate 2 spray 10/12/24 09:00 10/13/24 09:17 Fluticasone Propionate 0.05% Na Spr 16 Gm Btl (*Bkc) NASAL 2 spray DAILY ALEXIS Administration Lamotrigine 100 mg 10/12/24 09:00 10/13/24 09:17 Lamotrigine 100 Mg Tablet PO 100 mg DAILY ALEXIS Administration Levetiracetam 250 mg 10/11/24 21:00 10/13/24 09:16 Levetiracetam 250 Mg Tablet PO 250 mg Q12HR ALEXIS Administration Lorazepam 0.5 mg 10/12/24 20:26 10/12/24 20:59 Lorazepam (*Crx) 0.5 Mg Tablet PO 0.5 mg TID PRN Administration Anxiety Magnesium Oxide 400 mg 10/12/24 09:00 10/13/24 09:16 Magnesium Oxide 400 Mg Tablet PO 400 mg DAILY ALEXIS Administration Melatonin 3 mg 10/11/24 21:00 10/12/24 21:00 Melatonin 3 Mg Tablet PO 3 mg HS ALEXIS Administration Mirabegron 25 mg 10/12/24 09:00 10/13/24 09:16 Mirabegron 25 Mg Er Tablet PO 25 mg DAILY ALEXIS Administration Multivitamins/Calcium 1 tablet 10/12/24 09:00 10/13/24 09:16 Therapeutic Multivitamins/Minerals Tab (*Bkc) PO 1 tablet DAILY ALEXIS Administration Pantoprazole Sodium 40 mg 10/12/24 21:00 10/13/24 09:17 Pantoprazole Sodium Iv 40 Mg Vial IV PUSH 40 mg Q12HR ALEXIS Administration Polyethylene Glycol 17 gm 10/12/24 09:00 10/13/24 09:17 Polyethylene Glycol 3350 17 Gm Powd.Pack PO 17 gm DAILY ALEXIS Administration Prochlorperazine Edisylate 10 mg 10/12/24 14:58 10/12/24 21:19 Prochlorperazine Edisylate 10 Mg/2 Ml Vial IV PUSH 10 mg Q6H PRN Administration Nausea And Vomiting Senna/Docusate Sodium 1 tab 10/12/24 09:00 10/13/24 09:17 Senna/Docusate Sodium Tablet PO 1 tab DAILY ALEXIS Administration Radiology Results: ITS Impressions Head/Neck CTA 10/11/24 15:07 IMPRESSION: 1. 40% stenosis of the right carotid bulb relative to normal distal artery lumen diameter (NASCET criteria). 2. 40% stenosis of the left carotid bulb relative to normal distal artery lumen diameter. 3. 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 4. 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 No acute intracranial process or abnormally enhancing brain lesions. 5. Cerebral CT angiogram demonstrates no hemodynamically significant stenosis, aneurysm or thrombosis. Of note the majority of flow to the posterior cerebral arteries appears to be supplied from the bilateral internal carotid arteries via patent bilateral posterior communicating arteries which are significantly larger than the diminutive bilateral P1 segments. Chest X-Ray 10/11/24 15:26 IMPRESSION: 1: NO ACUTE CARDIOPULMONARY DISEASE. Abdomen/Pelvis CT 10/11/24 15:34 IMPRESSION: Possible mild fecal impaction. No CT findings of stercoral colitis. Otherwise, no acute abdominopelvic process detected. Labs Labs: Laboratory Results - last 24 hr 10/12/24 10/12/24 10/12/24 04:45 06:27 17:41 WBC 14.8 H RBC 2.84 L Hgb 8.9 L D Hct 27.3 L MCV 96.1 D MCH 31.3 MCHC 32.6 RDW 15.1 H Plt Count 187 MPV 9.5 Immature Gran % (Auto) 0.8 H Neut % (Auto) 84.2 H Lymph % (Auto) 8.5 L [place] % (Auto) 6.4 Eos % (Auto) 0.0 Baso % (Auto) 0.1 L Lymph # (Auto) 1.26 [place] # (Auto) 1.0 H Eos # (Auto) 0.0 Baso # (Auto) 0.0 Abs Immat Gran (auto) 0.12 H Absolute Neuts (auto) 12.4 H Absolute Nucleated RBC 0.030 H Nucleated RBC % 0.2 Sodium Potassium Chloride Carbon Dioxide Anion Gap BUN Creatinine Estim Creat Clear Calc Estimated GFR Glucose Calcium Magnesium Total Bilirubin AST ALT Alkaline Phosphatase Total Protein Albumin Procalcitonin 0.2 Blood Type A Positive Antibody Screen Negative Crossmatch See Detail 10/13/24 04:42 WBC 12.9 H RBC 2.46 L Hgb 7.8 L Hct 24.2 L MCV 98.4 MCH 31.7 MCHC 32.2 RDW 15.9 H Plt Count 159 MPV 9.9 Immature Gran % (Auto) 0.9 H Neut % (Auto) 84.2 H Lymph % (Auto) 8.7 L [place] % (Auto) 5.8 Eos % (Auto) 0.2 Baso % (Auto) 0.2 Lymph # (Auto) 1.12 [place] # (Auto) 0.8 H Eos # (Auto) 0.0 Baso # (Auto) 0.0 Abs Immat Gran (auto) 0.12 H Absolute Neuts (auto) 10.9 H Absolute Nucleated RBC 0.040 H Nucleated RBC % 0.3 H Sodium 144 Potassium 4.0 Chloride 115 H Carbon Dioxide 23 Anion Gap 6 BUN 26 H D Creatinine 0.95 Estim Creat Clear Calc 36 Estimated GFR 56 L Glucose 100 Calcium 8.7 Magnesium 2.3 Total Bilirubin 0.8 AST 22 ALT 12 Alkaline Phosphatase 52 Total Protein 5.5 L Albumin 3.0 L Procalcitonin Blood Type Antibody Screen Crossmatch Quality VTE Prophylaxis VTE prophylaxis: mechanical ordered
--- NOTE | 2024-10-13 11:04 | WPDGIPROGNO ---
Progress Note: A&P Assessment and Plan (1) Acute gastric ulcer: Code(s): K25.3 - Acute gastric ulcer without hemorrhage or perforation Status: Acute Assessment and Plan: The patient had a drop in hemoglobin and coffee-ground emesis yesterday. An ulcer was found within the hiatal hernia sac, not acutely bleeding. No endoscopic intervention was warranted. Pantoprazole every 12 hours was initiated and patient will be fed with a full liquid diet today, continuing to monitor her hemodynamic status and hemoglobin serially. Subjective Date/time seen: 10/13/24 11:04 Interval history: The patient is hemodynamically stable, and did not have any melena or hematemesis. Exam Narrative: Abdomen: Soft, nontender, nondistended, no changes from baseline. The rest of the exam within normal limits. Objective Data Vital Signs Vital Signs: Vital Signs - 24 hr 10/12/24 11:45 10/12/24 12:25 10/12/24 12:35 Temperature 98.1 F 97.1 F L 97.4 F L Pulse Rate 93 75 77 Respiratory Rate 18 20 18 Blood Pressure 111/56 L 114/78 116/44 L Pulse Oximetry 99 100 98 Oxygen Delivery Room Air Room Air Room Air 10/12/24 12:45 10/12/24 13:25 10/12/24 13:53 Temperature 97.8 F 98.5 F 98.8 F Pulse Rate 76 84 86 Respiratory Rate 20 16 14 Blood Pressure 126/50 L 138/88 133/88 Pulse Oximetry 97 97 98 Oxygen Delivery Room Air 10/12/24 14:00 10/12/24 14:16 10/12/24 15:09 Temperature 97.9 F 98 F Pulse Rate 74 85 84 Respiratory Rate 18 14 20 Blood Pressure 134/50 L 134/50 L 142/95 H Pulse Oximetry 99 99 98 Oxygen Delivery 10/12/24 15:10 10/12/24 16:00 10/12/24 16:15 Temperature 98 F 98 F Pulse Rate 20 L 88 85 Respiratory Rate 20 18 Blood Pressure 142/45 H 142/40 H Pulse Oximetry 99 96 Oxygen Delivery 10/12/24 20:00 10/12/24 20:00 10/12/24 20:23 Temperature 98.0 F Pulse Rate 89 94 Respiratory Rate 16 Blood Pressure 139/53 L Pulse Oximetry 99 Oxygen Delivery Room Air 10/13/24 00:00 10/13/24 04:00 10/13/24 06:17 Temperature 97.9 F Pulse Rate 95 78 100 Respiratory Rate 16 Blood Pressure 130/70 Pulse Oximetry 95 Oxygen Delivery Intake/Output Intake/Output: Intake & Output 10/10/24 10/11/24 10/12/24 10/13/24 23:59 23:59 23:59 23:59 Intake Total 1000 0 Output Total 75 800 450 Balance -75 200 -450 Meds/Results Medications: Active Medications Generic Name Dose Route Start Last Admin Trade Name Freq PRN Reason Stop Dose Admin Acetaminophen 650 mg 10/11/24 20:25 Acetaminophen 325 Mg Tablet PO Q4H PRN Pain 1-3 or fever Amlodipine Besylate 5 mg 10/12/24 09:00 10/13/24 09:16 Amlodipine Besylate 5 Mg Tablet PO 5 mg DAILY ALEXIS Administration Bisacodyl 10 mg 10/12/24 15:11 Bisacodyl 10 Mg Suppository RECTAL DAILY PRN Constipation Cyanocobalamin 1,000 mcg 10/12/24 20:30 10/12/24 21:19 Cyanocobalamin Inj 1,000 Mcg/Ml Vial IM 11/02/24 09:01 1,000 mcg WEEKLY ALEXIS Administration Diltiazem HCl 120 mg 10/12/24 09:00 10/13/24 06:27 Diltiazem Hcl Cd 120 Mg Cap.24hr PO 120 mg DAILY ALEXIS Administration Donepezil HCl 10 mg 10/11/24 21:00 10/12/24 21:00 Donepezil Hcl 10 Mg Tablet PO 10 mg HS ALEXIS Administration Duloxetine HCl 60 mg 10/12/24 09:00 10/13/24 09:16 Duloxetine Hcl 60 Mg Capsule.Dr PO 60 mg DAILY ALEXIS Administration Fluticasone Propionate 2 spray 10/12/24 09:00 10/13/24 09:17 Fluticasone Propionate 0.05% Na Spr 16 Gm Btl (*Bkc) NASAL 2 spray DAILY AELXIS Administration Lamotrigine 100 mg 10/12/24 09:00 10/13/24 09:17 Lamotrigine 100 Mg Tablet PO 100 mg DAILY ALEXIS Administration Levetiracetam 250 mg 10/11/24 21:00 10/13/24 09:16 Levetiracetam 250 Mg Tablet PO 250 mg Q12HR ALEXIS Administration Lorazepam 0.5 mg 10/12/24 20:26 10/12/24 20:59 Lorazepam (*Crx) 0.5 Mg Tablet PO 0.5 mg TID PRN Administration Anxiety Magnesium Oxide 400 mg 10/12/24 09:00 10/13/24 09:16 Magnesium Oxide 400 Mg Tablet PO 400 mg DAILY ALEXIS Administration Melatonin 3 mg 10/11/24 21:00 10/12/24 21:00 Melatonin 3 Mg Tablet PO 3 mg HS ALEXIS Administration Mirabegron 25 mg 10/12/24 09:00 10/13/24 09:16 Mirabegron 25 Mg Er Tablet PO 25 mg DAILY ALEXIS Administration Multivitamins/Calcium 1 tablet 10/12/24 09:00 10/13/24 09:16 Therapeutic Multivitamins/Minerals Tab (*Bkc) PO 1 tablet DAILY ALEXIS Administration Pantoprazole Sodium 40 mg 10/12/24 21:00 10/13/24 09:17 Pantoprazole Sodium Iv 40 Mg Vial IV PUSH 40 mg Q12HR ALEXIS Administration Polyethylene Glycol 17 gm 10/12/24 09:00 10/13/24 09:17 Polyethylene Glycol 3350 17 Gm Powd.Pack PO 17 gm DAILY ALEXIS Administration Prochlorperazine Edisylate 10 mg 10/12/24 14:58 10/12/24 21:19 Prochlorperazine Edisylate 10 Mg/2 Ml Vial IV PUSH 10 mg Q6H PRN Administration Nausea And Vomiting Senna/Docusate Sodium 1 tab 10/12/24 09:00 10/13/24 09:17 Senna/Docusate Sodium Tablet PO 1 tab DAILY ALEXIS Administration Radiology Results: ITS Impressions Head/Neck CTA 10/11/24 15:07 IMPRESSION: 1. 40% stenosis of the right carotid bulb relative to normal distal artery lumen diameter (NASCET criteria). 2. 40% stenosis of the left carotid bulb relative to normal distal artery lumen diameter. 3. 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 4. 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 No acute intracranial process or abnormally enhancing brain lesions. 5. Cerebral CT angiogram demonstrates no hemodynamically significant stenosis, aneurysm or thrombosis. Of note the majority of flow to the posterior cerebral arteries appears to be supplied from the bilateral internal carotid arteries via patent bilateral posterior communicating arteries which are significantly larger than the diminutive bilateral P1 segments. Chest X-Ray 10/11/24 15:26 IMPRESSION: 1: NO ACUTE CARDIOPULMONARY DISEASE. Abdomen/Pelvis CT 10/11/24 15:34 IMPRESSION: Possible mild fecal impaction. No CT findings of stercoral colitis. Otherwise, no acute abdominopelvic process detected. Labs Labs: Laboratory Results - last 24 hr 10/12/24 10/12/24 10/12/24 04:45 06:27 17:41 WBC 14.8 H RBC 2.84 L Hgb 8.9 L D Hct 27.3 L MCV 96.1 D MCH 31.3 MCHC 32.6 RDW 15.1 H Plt Count 187 MPV 9.5 Immature Gran % (Auto) 0.8 H Neut % (Auto) 84.2 H Lymph % (Auto) 8.5 L [place] % (Auto) 6.4 Eos % (Auto) 0.0 Baso % (Auto) 0.1 L Lymph # (Auto) 1.26 [place] # (Auto) 1.0 H Eos # (Auto) 0.0 Baso # (Auto) 0.0 Abs Immat Gran (auto) 0.12 H Absolute Neuts (auto) 12.4 H Absolute Nucleated RBC 0.030 H Nucleated RBC % 0.2 Sodium Potassium Chloride Carbon Dioxide Anion Gap BUN Creatinine Estim Creat Clear Calc Estimated GFR Glucose Calcium Magnesium Total Bilirubin AST ALT Alkaline Phosphatase Total Protein Albumin Procalcitonin 0.2 Blood Type A Positive Antibody Screen Negative Crossmatch See Detail 10/13/24 04:42 WBC 12.9 H RBC 2.46 L Hgb 7.8 L Hct 24.2 L MCV 98.4 MCH 31.7 MCHC 32.2 RDW 15.9 H Plt Count 159 MPV 9.9 Immature Gran % (Auto) 0.9 H Neut % (Auto) 84.2 H Lymph % (Auto) 8.7 L [place] % (Auto) 5.8 Eos % (Auto) 0.2 Baso % (Auto) 0.2 Lymph # (Auto) 1.12 [place] # (Auto) 0.8 H Eos # (Auto) 0.0 Baso # (Auto) 0.0 Abs Immat Gran (auto) 0.12 H Absolute Neuts (auto) 10.9 H Absolute Nucleated RBC 0.040 H Nucleated RBC % 0.3 H Sodium 144 Potassium 4.0 Chloride 115 H Carbon Dioxide 23 Anion Gap 6 BUN 26 H D Creatinine 0.95 Estim Creat Clear Calc 36 Estimated GFR 56 L Glucose 100 Calcium 8.7 Magnesium 2.3 Total Bilirubin 0.8 AST 22 ALT 12 Alkaline Phosphatase 52 Total Protein 5.5 L Albumin 3.0 L Procalcitonin Blood Type Antibody Screen Crossmatch
[2024-10-13 17:21] LABS: Basophils Percent Auto 0.3 % (0.2-1.2); Eosinophils Absolute Auto 0.1 K/mm3 (0-0.3); Eosinophils Percent Auto 1.2 % (0-4.4); Hematocrit 24.3 % (37.0-47.0); Hemoglobin 7.8 g/dL (12.0-15.0); Immature Granulocyte Absolute 0.05 K/mm3 (0.00-0.031); Immature Granulocyte Percent A 0.4 % (0-0.5); Lymphocytes Absolute Auto 1.48 K/mm3 (0.9-3.2); Lymphocytes Percent Auto 13.2 % (18.3-44.2); Mean Corpuscular HGB Conc 32.1 g/dl (32-36); Mean Corpuscular Hemoglobin 31.3 pg (26-34); Mean Corpuscular Volume 97.6 fl (80-100); Mean Platelet Volume 9.7 fl (7.4-10.4); Monocytes Absolute Auto 0.8 K/mm3 (0.1-0.6); Monocytes Percent Auto 7.5 % (2.6-8.5); Neutrophils Absolute Auto 8.7 K/mm3 (1.3-6.7); Neutrophils Percent Auto 77.4 % (45.5-73.1); Nucleated Red Blood Cells Perc 0.6 % (0.0-0.2); Platelet Count Result 152 k/mm3 (150-375); Red Blood Count 2.49 M/mm3 (4.2-5.4); Red Cell Distribution Width 16.1 % (11.5-14.5); White Blood Count 11.2 K/mm3 (4.5-10.0)
[2024-10-13] MEDS: MELATONIN 3 MG TABLET PO (20:45)
[2024-10-13] MEDS: LORazepam (*CRX) 0.5 MG TABLET PO (20:45)
[2024-10-13] MEDS: DONEPEZIL HCL 10 MG TABLET PO (20:45)
[2024-10-13] MEDS: ACETAMINOPHEN 325 MG TABLET 650 MG PO (20:46)
[2024-10-14] VITALS (9 sets, daily range): BP systolic 113–124; BP diastolic 45–48; PULSE 65–81; RESP 18–20; TEMP 36.4–37.1; O2SAT 93–99; BMI 27.8
[2024-10-14 05:02] LABS: Basophils Percent Auto 0.1 % (0.2-1.2); Eosinophils Absolute Auto 0.3 K/mm3 (0-0.3); Eosinophils Percent Auto 3.3 % (0-4.4); Hematocrit 23.3 % (37.0-47.0); Hemoglobin 7.4 g/dL (12.0-15.0); Immature Granulocyte Absolute 0.04 K/mm3 (0.00-0.031); Immature Granulocyte Percent A 0.5 % (0-0.5); Immature Platelet Fraction Pct 4.1 % (0.9-11.2); Lymphocytes Absolute Auto 1.27 K/mm3 (0.9-3.2); Lymphocytes Percent Auto 16.8 % (18.3-44.2); Mean Corpuscular HGB Conc 31.8 g/dl (32-36); Mean Corpuscular Hemoglobin 31.6 pg (26-34); Mean Corpuscular Volume 99.6 fl (80-100); Mean Platelet Volume 10.2 fl (7.4-10.4); Monocytes Absolute Auto 0.5 K/mm3 (0.1-0.6); Monocytes Percent Auto 6.6 % (2.6-8.5); Neutrophils Absolute Auto 5.5 K/mm3 (1.3-6.7); Neutrophils Percent Auto 72.7 % (45.5-73.1); Nucleated Red Blood Cells Perc 1.1 % (0.0-0.2); Platelet Count Result 152 k/mm3 (150-375); Red Blood Count 2.34 M/mm3 (4.2-5.4); Red Cell Distribution Width 15.8 % (11.5-14.5); White Blood Count 7.6 K/mm3 (4.5-10.0)
[2024-10-14 05:31] LABS: Alanine Aminotransferase 13 U/L (6-35); Albumin Level 2.9 g/dL (3.5-5.1); Alkaline Phosphatase 55 U/L (38-126); Anion Gap 4 mmol/L (4-12); Aspartate Amino Transferase 24 U/L (14-36); Bilirubin,Total 0.6 mg/dL (0.2-1.3); Blood Urea Nitrogen 21 mg/dL (7-17); Calcium 8.5 mg/dL (8.4-10.2); Carbon Dioxide 23 mmol/L (22-30); Chloride 110 mmol/L (98-107); Estimated CRCL calculation 35 ml/min; Estimated Glomerular Filt Rate 54; Glucose 90 mg/dL (65-110); Magnesium 2.2 mg/dL (1.6-2.3); Potassium 3.6 mmol/L (3.4-5.0); Sodium 137 mmol/L (137-145); Total Protein 5.3 g/dL (6.3-8.2)
[2024-10-14] MEDS: levETIRAcetam 250 MG TABLET PO ×2 (08:53→22:00)
[2024-10-14] MEDS: SENNA/DOCUSATE SODIUM TABLET 1 TAB PO (08:53)
[2024-10-14] MEDS: MAGNESIUM OXIDE 400 MG TABLET PO (08:53)
[2024-10-14] MEDS: polyethylene glycoL 3350 17 GM POWD.PACK PO (08:53)
[2024-10-14] MEDS: THERAPEUTIC MULTIVITAMINS/MINERALS TAB (*BKC) 1 TABLET PO (08:53)
[2024-10-14] MEDS: MIRABEGRON 25 MG ER TABLET PO (08:53)
[2024-10-14] MEDS: DULoxetine HCL 60 MG CAPSULE.DR PO (08:53)
[2024-10-14] MEDS: FLUTICASONE PROPIONATE 0.05% NA SPR 16 GM BTL (*BKC) 2 SPRAY NASAL (08:54)
[2024-10-14] MEDS: amLODIPine BESYLATE 5 MG TABLET PO (08:54)
[2024-10-14] MEDS: dilTIAZem HCL CD 120 MG CAP.24HR PO (08:54)
[2024-10-14] MEDS: lamoTRIgine 100 MG TABLET PO (08:54)
[2024-10-14] MEDS: PANTOPRAZOLE SODIUM IV 40 MG VIAL IV PUSH ×2 (08:54→22:00)
--- NOTE | 2024-10-14 11:46 | P.PNGI_ITS ---
Progress Note: A&P Assessment and Plan (1) Acute gastric ulcer: Code(s): K25.3 - Acute gastric ulcer without hemorrhage or perforation Status: Acute Assessment and Plan: Patient's finding on EGD yesterday reveal an acute gastric ulcer which is not currently bleeding and her hemoglobin has remained stable. Patient can be advanced to a regular diet, and kept on intravenous pantoprazole for 24 more hours and then switched to oral, 40 mg once a day permanently. If hemoglobin remains stable tomorrow, she might be discharged from a GI standpoint. Subjective Date/time seen: 10/14/24 11:46 Interval history: No melena or hematemesis. Patient hemodynamically stable. Exam Narrative: Abdomen: Soft, nontender, nondistended. Objective Data Vital Signs Vital Signs: Vital Signs - 24 hr 10/13/24 12:00 10/13/24 14:00 10/13/24 16:02 Temperature 97.9 F Pulse Rate 96 62 108 H Respiratory Rate 16 Blood Pressure 102/50 L Pulse Oximetry 95 Oxygen Delivery 10/13/24 20:00 10/13/24 20:00 10/13/24 20:45 Temperature 98.8 F Pulse Rate 75 77 Respiratory Rate 20 Blood Pressure 94/43 L Pulse Oximetry 91 Oxygen Delivery Room Air 10/14/24 00:00 10/14/24 04:00 10/14/24 04:18 Temperature 97.6 F Pulse Rate 65 70 78 Respiratory Rate 18 Blood Pressure 113/45 L Pulse Oximetry 93 Oxygen Delivery 10/14/24 08:03 Temperature Pulse Rate 81 Respiratory Rate Blood Pressure Pulse Oximetry Oxygen Delivery Intake/Output Intake/Output: Intake & Output 10/11/24 10/12/24 10/13/24 10/14/24 23:59 23:59 23:59 23:59 Intake Total 1000 1200 150 Output Total 75 800 650 100 Balance -75 200 550 50 Meds/Results Medications: Active Medications Generic Name Dose Route Start Last Admin Trade Name Freq PRN Reason Stop Dose Admin Acetaminophen 650 mg 10/11/24 20:25 10/13/24 20:46 Acetaminophen 325 Mg Tablet PO 650 mg Q4H PRN Administration Pain 1-3 or fever Amlodipine Besylate 5 mg 10/12/24 09:00 10/14/24 08:54 Amlodipine Besylate 5 Mg Tablet PO 5 mg DAILY ALEXIS Administration Bisacodyl 10 mg 10/12/24 15:11 Bisacodyl 10 Mg Suppository RECTAL DAILY PRN Constipation Cyanocobalamin 1,000 mcg 10/12/24 20:30 10/12/24 21:19 Cyanocobalamin Inj 1,000 Mcg/Ml Vial IM 11/02/24 09:01 1,000 mcg WEEKLY ALEXIS Administration Diltiazem HCl 120 mg 10/12/24 09:00 10/14/24 08:54 Diltiazem Hcl Cd 120 Mg Cap.24hr PO 120 mg DAILY ALEXIS Administration Donepezil HCl 10 mg 10/11/24 21:00 10/13/24 20:45 Donepezil Hcl 10 Mg Tablet PO 10 mg HS ALEXIS Administration Duloxetine HCl 60 mg 10/12/24 09:00 10/14/24 08:53 Duloxetine Hcl 60 Mg Capsule.Dr PO 60 mg DAILY ALEXIS Administration Fluticasone Propionate 2 spray 10/12/24 09:00 10/14/24 08:54 Fluticasone Propionate 0.05% Na Spr 16 Gm Btl (*Bkc) NASAL 2 spray DAILY ALEXIS Administration Lamotrigine 100 mg 10/12/24 09:00 10/14/24 08:54 Lamotrigine 100 Mg Tablet PO 100 mg DAILY ALEXIS Administration Levetiracetam 250 mg 10/11/24 21:00 10/14/24 08:53 Levetiracetam 250 Mg Tablet PO 250 mg Q12HR ALEXIS Administration Lorazepam 0.5 mg 10/12/24 20:26 10/13/24 20:45 Lorazepam (*Crx) 0.5 Mg Tablet PO 0.5 mg TID PRN Administration Anxiety Magnesium Oxide 400 mg 10/12/24 09:00 10/14/24 08:53 Magnesium Oxide 400 Mg Tablet PO 400 mg DAILY ALEXIS Administration Melatonin 3 mg 10/11/24 21:00 10/13/24 20:45 Melatonin 3 Mg Tablet PO 3 mg HS ALEXIS Administration Mirabegron 25 mg 10/12/24 09:00 10/14/24 08:53 Mirabegron 25 Mg Er Tablet PO 25 mg DAILY ALEXIS Administration Multivitamins/Calcium 1 tablet 10/12/24 09:00 10/14/24 08:53 Therapeutic Multivitamins/Minerals Tab (*Bkc) PO 1 tablet DAILY ALEXIS Administration Pantoprazole Sodium 40 mg 10/12/24 21:00 10/14/24 08:54 Pantoprazole Sodium Iv 40 Mg Vial IV PUSH 40 mg Q12HR ALEXIS Administration Polyethylene Glycol 17 gm 10/12/24 09:00 10/14/24 08:53 Polyethylene Glycol 3350 17 Gm Powd.Pack PO 17 gm DAILY ALEXIS Administration Prochlorperazine Edisylate 10 mg 10/12/24 14:58 10/12/24 21:19 Prochlorperazine Edisylate 10 Mg/2 Ml Vial IV PUSH 10 mg Q6H PRN Administration Nausea And Vomiting Senna/Docusate Sodium 1 tab 10/12/24 09:00 10/14/24 08:53 Senna/Docusate Sodium Tablet PO 1 tab DAILY ALEXIS Administration Radiology Results: ITS Impressions Head/Neck CTA 10/11/24 15:07 IMPRESSION: 1. 40% stenosis of the right carotid bulb relative to normal distal artery lumen diameter (NASCET criteria). 2. 40% stenosis of the left carotid bulb relative to normal distal artery lumen diameter. 3. 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 4. 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 No acute intracranial process or abnormally enhancing brain lesions. 5. Cerebral CT angiogram demonstrates no hemodynamically significant stenosis, aneurysm or thrombosis. Of note the majority of flow to the posterior cerebral arteries appears to be supplied from the bilateral internal carotid arteries via patent bilateral posterior communicating arteries which are significantly larger than the diminutive bilateral P1 segments. Chest X-Ray 10/11/24 15:26 IMPRESSION: 1: NO ACUTE CARDIOPULMONARY DISEASE. Abdomen/Pelvis CT 10/11/24 15:34 IMPRESSION: Possible mild fecal impaction. No CT findings of stercoral colitis. Otherwise, no acute abdominopelvic process detected. Labs Labs: Laboratory Results - last 24 hr 10/13/24 10/14/24 17:16 04:25 WBC 11.2 H 7.6 RBC 2.49 L 2.34 L Hgb 7.8 L 7.4 L Hct 24.3 L 23.3 L MCV 97.6 99.6 MCH 31.3 31.6 MCHC 32.1 31.8 L RDW 16.1 H 15.8 H Plt Count 152 152 MPV 9.7 10.2 Immature Gran % (Auto) 0.4 0.5 Neut % (Auto) 77.4 H 72.7 Lymph % (Auto) 13.2 L 16.8 L [place] % (Auto) 7.5 6.6 Eos % (Auto) 1.2 3.3 Baso % (Auto) 0.3 0.1 L Lymph # (Auto) 1.48 1.27 [place] # (Auto) 0.8 H 0.5 Eos # (Auto) 0.1 0.3 Baso # (Auto) 0.0 0.0 Abs Immat Gran (auto) 0.05 H 0.04 H Absolute Neuts (auto) 8.7 H 5.5 Absolute Nucleated RBC 0.070 H 0.080 H Nucleated RBC % 0.6 H 1.1 H % Immature Plt Fraction 4.1 Sodium 137 Potassium 3.6 Chloride 110 H Carbon Dioxide 23 Anion Gap 4 BUN 21 H Creatinine 0.98 Estim Creat Clear Calc 35 Estimated GFR 54 L Glucose 90 Calcium 8.5 Magnesium 2.2 Total Bilirubin 0.6 AST 24 ALT 13 Alkaline Phosphatase 55 Total Protein 5.3 L Albumin 2.9 L
--- NOTE | 2024-10-14 11:58 | P.PNIM_ITS ---
Progress Note: A&P Assessment and Plan (1) Acute gastric ulcer: Code(s): K25.3 - Acute gastric ulcer without hemorrhage or perforation Status: Acute Assessment and Plan: * Patient with dry coffee ground around mouth and on cheek on 10/12/2024. * GI consulted, appreciate recommendations. * EGD done. Showed: The esophagus was examined and the mucosa was normal with a normal Z-line and no ulcers or masses. A large hiatal hernia without obstruction was found at the GE junction. A single cratered acute benign ulcer measuring 12 mm was visualized in the fundus, in the proximal part of the hiatal hernia. There is no visible vessel of active bleeding. The stomach at the body, cardia and fundus was examined and was normal with no ulcers or masses. The bulb and second portion of duodenum was normal with no ulcers or masses. Coffee grounds noted in body. Hiatal hernia and acute gastric ulcer found. * 10/12/24:Plan pantoprazole 40 mg IV q 12, NPO, Stop Eliquis, Check H&H every 12 hours. * Check stool for occult blood. * 10/14/24: Full liquid diet for lunch and regular for supper. Kept on intravenous pantoprazole for 24 more hours and then switched to oral, 40 mg once a day permanently. * PT/OT (2) Fecal impaction: Code(s): K56.41 - Fecal impaction Status: Acute Assessment and Plan: * Patient had some nausea vomiting at the skilled nursing likely due to fecal impaction. Her fall, and hindsight, is likely secondary to vasovagal event. Patient received Colace enema after arriving to the medical floor and subsequently went unresponsive while on the commode and had large amount of hard stool output followed by looser stool. Patient did have transient henri ycardia with the event but vitals and blood pressure returned to normal. Mental status returned to normal shortly thereafter. * 2 bowel movements on 10/11/24. * Miralax 17 gram PO daily. * Docusate sod/senna tablet 1 tab PO daily. * Bisacodyl 10 mg MT daily PRN. (3) Nausea & vomiting: Qualifiers: Vomiting type: unspecified Qualified Code(s): R11.2 - Nausea with vomiting, unspecified Code(s): R11.2 - Nausea with vomiting, unspecified Status: Acute Assessment and Plan: * Prochlorperazine 10 mg IV q 6 PRN. (4) Vasovagal syncope: Code(s): R55 - Syncope and collapse Status: Acute Assessment and Plan: * Patient had some nausea vomiting at the skilled nursing likely due to fecal impaction. Her fall, and hindsight, is likely secondary to vasovagal event. Patient received Colace enema after arriving to the medical floor and subsequently went unresponsive while on the commode and had large amount of hard stool output followed by looser stool. Patient did have transient bradycardia with the event but vitals and blood pressure returned to normal. Mental status returned to normal shortly thereafter. Patient does have an elevated BUN from baseline likely has some component of hypovolemia which contributed to syncopal event. Will give 1 L fluids at 100 mL an hour repeat electrolyte panel and CBC in a.m. to re-evaluate. Patient's hemoglobin is relatively stable compared to last hospitalization and stool is brown without evidence of blood or melena. Will repeat CBC in a.m.. Will continue to monitor cardiac rhythm on telemetry. Unfortunately on review of telemetry dur ing the patient's vagal event appears the patient had not been on telemetry for some time. Will monitor rhythm closely. The patient did have recent echocardiogram within the last 6 months so no need to repeat at this time. (5) Iron deficiency anemia: Qualifiers: Iron deficiency anemia type: chronic blood loss Qualified Code(s): D50.0 - Iron deficiency anemia secondary to blood loss (chronic) Code(s): D50.9 - Iron deficiency anemia, unspecified Status: Acute Assessment and Plan: * H&H 5.9/20.5 on 10/12/24, counts today 7.4/23.3. * Patient transfused 2 units of PRBC's on 10/12 with post H&H of 8.9/27.3. * Iron 93, TIBC 327, % sat 28. * Monitor levels. * CBC q 12. * Transfuse if Hgb <7. (6) Paroxysmal atrial fibrillation: Code(s): I48.0 - Paroxysmal atrial fibrillation Status: Chronic Assessment and Plan: * SR 75 today. * Eliquis stopped due to ulcer and drop in blood counts. * Diltiazem 120 mg PO daily. (7) Leukocytosis: Code(s): D72.829 - Elevated white blood cell count, unspecified Status: Acute Assessment and Plan: * WBC 15.9>14.8>12.9>7.6. * UA normal. * BCx2 no growth to date. * Afebrile. * Chest X-ray negative. * Monitor level. (8) B12 deficiency: Code(s): E53.8 - Deficiency of other specified B group vitamins Status: Acute Assessment and Plan: * B12 level 234. * Cyanocobalamin 1,000 mcg IM weekly x 4 weeks. Subjective Date/time seen: 10/14/24 11:58 Interval history: Patient sitting up in bed. Patient denies pain, shortness of breath, nausea, or vomiting. Review of Systems Review of Systems: All systems reviewed & are unremarkable except as noted in HPI and below Exam Const: General: no acute distress Resp: Effort & Inspection: normal respiratory effort Auscultation: clear to auscultation bilaterally Cardio: Rate: regular rate Rhythm: regular rhythm Other: Telemetry- SR 75. GI: GI Palp: Yes Soft to palpation and No Tenderness to palpation present (GI) Neuro: Speech: normal speech Extrem: General: no pedal edema Psych: Affect: normal affect Other: oriented to person and hospital. Objective Data Vital Signs Vital Signs: Vital Signs - 24 hr 10/13/24 12:00 10/13/24 14:00 10/13/24 16:02 Temperature 97.9 F Pulse Rate 96 62 108 H Respiratory Rate 16 Blood Pressure 102/50 L Pulse Oximetry 95 Oxygen Delivery 10/13/24 20:00 10/13/24 20:00 10/13/24 20:45 Temperature 98.8 F Pulse Rate 75 77 Respiratory Rate 20 Blood Pressure 94/43 L Pulse Oximetry 91 Oxygen Delivery Room Air 10/14/24 00:00 10/14/24 04:00 10/14/24 04:18 Temperature 97.6 F Pulse Rate 65 70 78 Respiratory Rate 18 Blood Pressure 113/45 L Pulse Oximetry 93 Oxygen Delivery 10/14/24 08:03 Temperature Pulse Rate 81 Respiratory Rate Blood Pressure Pulse Oximetry Oxygen Delivery Intake/Output Intake/Output: Intake & Output 10/11/24 10/12/24 10/13/24 10/14/24 23:59 23:59 23:59 23:59 Intake Total 1000 1200 150 Output Total 75 800 650 100 Balance -75 200 550 50 Meds/Results Medications: Active Medications Generic Name Dose Route Start Last Admin Trade Name Freq PRN Reason Stop Dose Admin Acetaminophen 650 mg 10/11/24 20:25 10/13/24 20:46 Acetaminophen 325 Mg Tablet PO 650 mg Q4H PRN Administration Pain 1-3 or fever Amlodipine Besylate 5 mg 10/12/24 09:00 10/14/24 08:54 Amlodipine Besylate 5 Mg Tablet PO 5 mg DAILY ALEXIS Administration Bisacodyl 10 mg 10/12/24 15:11 Bisacodyl 10 Mg Suppository RECTAL DAILY PRN Constipation Cyanocobalamin 1,000 mcg 10/12/24 20:30 10/12/24 21:19 Cyanocobalamin Inj 1,000 Mcg/Ml Vial IM 11/02/24 09:01 1,000 mcg WEEKLY ALEXIS Administration Diltiazem HCl 120 mg 10/12/24 09:00 10/14/24 08:54 Diltiazem Hcl Cd 120 Mg Cap.24hr PO 120 mg DAILY ALEXIS Administration Donepezil HCl 10 mg 10/11/24 21:00 10/13/24 20:45 Donepezil Hcl 10 Mg Tablet PO 10 mg HS ALEXIS Administration Duloxetine HCl 60 mg 10/12/24 09:00 10/14/24 08:53 Duloxetine Hcl 60 Mg Capsule.Dr PO 60 mg DAILY ALEXIS Administration Fluticasone Propionate 2 spray 10/12/24 09:00 10/14/24 08:54 Fluticasone Propionate 0.05% Na Spr 16 Gm Btl (*Bkc) NASAL 2 spray DAILY ALEXIS Administration Lamotrigine 100 mg 10/12/24 09:00 10/14/24 08:54 Lamotrigine 100 Mg Tablet PO 100 mg DAILY ALEXIS Administration Levetiracetam 250 mg 10/11/24 21:00 10/14/24 08:53 Levetiracetam 250 Mg Tablet PO 250 mg Q12HR ALEXIS Administration Lorazepam 0.5 mg 10/12/24 20:26 10/13/24 20:45 Lorazepam (*Crx) 0.5 Mg Tablet PO 0.5 mg TID PRN Administration Anxiety Magnesium Oxide 400 mg 10/12/24 09:00 10/14/24 08:53 Magnesium Oxide 400 Mg Tablet PO 400 mg DAILY ALEXIS Administration Melatonin 3 mg 10/11/24 21:00 10/13/24 20:45 Melatonin 3 Mg Tablet PO 3 mg HS ALEXIS Administration Mirabegron 25 mg 10/12/24 09:00 10/14/24 08:53 Mirabegron 25 Mg Er Tablet PO 25 mg DAILY ALEXIS Administration Multivitamins/Calcium 1 tablet 10/12/24 09:00 10/14/24 08:53 Therapeutic Multivitamins/Minerals Tab (*Bkc) PO 1 tablet DAILY ALEXIS Administration Pantoprazole Sodium 40 mg 10/12/24 21:00 10/14/24 08:54 Pantoprazole Sodium Iv 40 Mg Vial IV PUSH 40 mg Q12HR ALEXIS Administration Polyethylene Glycol 17 gm 10/12/24 09:00 10/14/24 08:53 Polyethylene Glycol 3350 17 Gm Powd.Pack PO 17 gm DAILY ALEXIS Administration Prochlorperazine Edisylate 10 mg 10/12/24 14:58 10/12/24 21:19 Prochlorperazine Edisylate 10 Mg/2 Ml Vial IV PUSH 10 mg Q6H PRN Administration Nausea And Vomiting Senna/Docusate Sodium 1 tab 10/12/24 09:00 10/14/24 08:53 Senna/Docusate Sodium Tablet PO 1 tab DAILY ALEXIS Administration Radiology Results: ITS Impressions Head/Neck CTA 10/11/24 15:07 IMPRESSION: 1. 40% stenosis of the right carotid bulb relative to normal distal artery lumen diameter (NASCET criteria). 2. 40% stenosis of the left carotid bulb relative to normal distal artery lumen diameter. 3. 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 4. 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 No acute intracranial process or abnormally enhancing brain lesions. 5. Cerebral CT angiogram demonstrates no hemodynamically significant stenosis, aneurysm or thrombosis. Of note the majority of flow to the posterior cerebral arteries appears to be supplied from the bilateral internal carotid arteries via patent bilateral posterior communicating arteries which are significantly larger than the diminutive bilateral P1 segments. Chest X-Ray 10/11/24 15:26 IMPRESSION: 1: NO ACUTE CARDIOPULMONARY DISEASE. Abdomen/Pelvis CT 10/11/24 15:34 IMPRESSION: Possible mild fecal impaction. No CT findings of stercoral colitis. Otherwise, no acute abdominopelvic process detected. Labs Labs: Laboratory Results - last 24 hr 10/13/24 10/14/24 17:16 04:25 WBC 11.2 H 7.6 RBC 2.49 L 2.34 L Hgb 7.8 L 7.4 L Hct 24.3 L 23.3 L MCV 97.6 99.6 MCH 31.3 31.6 MCHC 32.1 31.8 L RDW 16.1 H 15.8 H Plt Count 152 152 MPV 9.7 10.2 Immature Gran % (Auto) 0.4 0.5 Neut % (Auto) 77.4 H 72.7 Lymph % (Auto) 13.2 L 16.8 L [place] % (Auto) 7.5 6.6 Eos % (Auto) 1.2 3.3 Baso % (Auto) 0.3 0.1 L Lymph # (Auto) 1.48 1.27 [place] # (Auto) 0.8 H 0.5 Eos # (Auto) 0.1 0.3 Baso # (Auto) 0.0 0.0 Abs Immat Gran (auto) 0.05 H 0.04 H Absolute Neuts (auto) 8.7 H 5.5 Absolute Nucleated RBC 0.070 H 0.080 H Nucleated RBC % 0.6 H 1.1 H % Immature Plt Fraction 4.1 Sodium 137 Potassium 3.6 Chloride 110 H Carbon Dioxide 23 Anion Gap 4 BUN 21 H Creatinine 0.98 Estim Creat Clear Calc 35 Estimated GFR 54 L Glucose 90 Calcium 8.5 Magnesium 2.2 Total Bilirubin 0.6 AST 24 ALT 13 Alkaline Phosphatase 55 Total Protein 5.3 L Albumin 2.9 L Quality VTE Prophylaxis VTE prophylaxis: mechanical ordered
[2024-10-14] MEDS: LORazepam (*CRX) 0.5 MG TABLET PO (13:31)
[2024-10-14 17:50] LABS: Basophils Percent Auto 0.2 % (0.2-1.2); Eosinophils Absolute Auto 0.3 K/mm3 (0-0.3); Eosinophils Percent Auto 3.1 % (0-4.4); Hematocrit 26.5 % (37.0-47.0); Hemoglobin 8.4 g/dL (12.0-15.0); Immature Granulocyte Absolute 0.06 K/mm3 (0.00-0.031); Immature Granulocyte Percent A 0.7 % (0-0.5); Lymphocytes Absolute Auto 1.06 K/mm3 (0.9-3.2); Lymphocytes Percent Auto 12.2 % (18.3-44.2); Mean Corpuscular HGB Conc 31.7 g/dl (32-36); Mean Corpuscular Hemoglobin 31.5 pg (26-34); Mean Corpuscular Volume 99.3 fl (80-100); Mean Platelet Volume 10.3 fl (7.4-10.4); Monocytes Absolute Auto 0.6 K/mm3 (0.1-0.6); Monocytes Percent Auto 6.8 % (2.6-8.5); Neutrophils Absolute Auto 6.7 K/mm3 (1.3-6.7); Nucleated Red Blood Cells Perc 1.4 % (0.0-0.2); Platelet Count Result 189 k/mm3 (150-375); Red Blood Count 2.67 M/mm3 (4.2-5.4); Red Cell Distribution Width 15.7 % (11.5-14.5); White Blood Count 8.7 K/mm3 (4.5-10.0)
[2024-10-14] MEDS: MELATONIN 3 MG TABLET PO (22:00)
[2024-10-14] MEDS: DONEPEZIL HCL 10 MG TABLET PO (22:00)
[2024-10-15] VITALS (10 sets, daily range): BP systolic 115–126; BP diastolic 44–61; PULSE 75–87; RESP 16–20; TEMP 36.4–37.2; O2SAT 93–97
[2024-10-15 05:24] LABS: Basophils Percent Auto 0.1 % (0.2-1.2); Eosinophils Absolute Auto 0.2 K/mm3 (0-0.3); Eosinophils Percent Auto 2.8 % (0-4.4); Hematocrit 24.5 % (37.0-47.0); Hemoglobin 7.8 g/dL (12.0-15.0); Immature Granulocyte Absolute 0.07 K/mm3 (0.00-0.031); Immature Granulocyte Percent A 0.9 % (0-0.5); Lymphocytes Absolute Auto 1.04 K/mm3 (0.9-3.2); Lymphocytes Percent Auto 13.8 % (18.3-44.2); Mean Corpuscular HGB Conc 31.8 g/dl (32-36); Mean Corpuscular Volume 97.2 fl (80-100); Mean Platelet Volume 10.4 fl (7.4-10.4); Monocytes Absolute Auto 0.5 K/mm3 (0.1-0.6); Monocytes Percent Auto 6.5 % (2.6-8.5); Neutrophils Absolute Auto 5.7 K/mm3 (1.3-6.7); Neutrophils Percent Auto 75.9 % (45.5-73.1); Nucleated Red Blood Cells Perc 0.9 % (0.0-0.2); Platelet Count Result 174 k/mm3 (150-375); Red Blood Count 2.52 M/mm3 (4.2-5.4); Red Cell Distribution Width 15.4 % (11.5-14.5); White Blood Count 7.5 K/mm3 (4.5-10.0)
[2024-10-15 05:36] LABS: Alanine Aminotransferase 16 U/L (6-35); Albumin Level 3.1 g/dL (3.5-5.1); Alkaline Phosphatase 68 U/L (38-126); Anion Gap 5 mmol/L (4-12); Aspartate Amino Transferase 26 U/L (14-36); Bilirubin,Total 0.6 mg/dL (0.2-1.3); Blood Urea Nitrogen 15 mg/dL (7-17); Calcium 8.5 mg/dL (8.4-10.2); Carbon Dioxide 24 mmol/L (22-30); Chloride 105 mmol/L (98-107); Estimated CRCL calculation 39 ml/min; Estimated Glomerular Filt Rate > 60; Glucose 96 mg/dL (65-110); Potassium 3.7 mmol/L (3.4-5.0); Sodium 134 mmol/L (137-145); Total Protein 5.7 g/dL (6.3-8.2)
[2024-10-15] MEDS: amLODIPine BESYLATE 5 MG TABLET PO (10:12)
[2024-10-15] MEDS: DULoxetine HCL 60 MG CAPSULE.DR PO (10:12)
[2024-10-15] MEDS: MIRABEGRON 25 MG ER TABLET PO (10:12)
[2024-10-15] MEDS: dilTIAZem HCL CD 120 MG CAP.24HR PO (10:13)
[2024-10-15] MEDS: lamoTRIgine 100 MG TABLET PO (10:13)
[2024-10-15] MEDS: SENNA/DOCUSATE SODIUM TABLET 1 TAB PO ×2 (10:13→17:29)
[2024-10-15] MEDS: THERAPEUTIC MULTIVITAMINS/MINERALS TAB (*BKC) 1 TABLET PO (10:13)
[2024-10-15] MEDS: levETIRAcetam 250 MG TABLET PO ×2 (10:13→20:41)
[2024-10-15] MEDS: MAGNESIUM OXIDE 400 MG TABLET PO (10:13)
[2024-10-15] MEDS: polyethylene glycoL 3350 17 GM POWD.PACK PO (10:13)
[2024-10-15] MEDS: FLUTICASONE PROPIONATE 0.05% NA SPR 16 GM BTL (*BKC) 2 SPRAY NASAL (10:14)
--- NOTE | 2024-10-15 11:31 | P.PNIM_ITS ---
Progress Note: A&P Assessment and Plan (1) Acute gastric ulcer: Code(s): K25.3 - Acute gastric ulcer without hemorrhage or perforation Status: Acute Assessment and Plan: * Patient with dry coffee ground around mouth and on cheek on 10/12/2024. * GI consulted, appreciate recommendations. * EGD done. Showed: The esophagus was examined and the mucosa was normal with a normal Z-line and no ulcers or masses. A large hiatal hernia without obstruction was found at the GE junction. A single cratered acute benign ulcer measuring 12 mm was visualized in the fundus, in the proximal part of the hiatal hernia. There is no visible vessel of active bleeding. The stomach at the body, cardia and fundus was examined and was normal with no ulcers or masses. The bulb and second portion of duodenum was normal with no ulcers or masses. Coffee grounds noted in body. Hiatal hernia and acute gastric ulcer found. * 10/12/24:Plan pantoprazole 40 mg IV q 12, NPO, Stop Eliquis, Check H&H every 12 hours. * Check stool for occult blood. * 10/14/24: Full liquid diet for lunch and regular for supper. Kept on intravenous pantoprazole for 24 more hours and then switched to oral, 40 mg once a day permanently. * Heart healthy diet. Added NS@75 ml/hr, patient with poor intake this morning and feeling weak. * PT/OT (2) Fecal impaction: Code(s): K56.41 - Fecal impaction Status: Acute Assessment and Plan: * Patient had some nausea vomiting at the care home likely due to fecal imp action. Her fall, and hindsight, is likely secondary to vasovagal event. Patient received Colace enema after arriving to the medical floor and subsequently went unresponsive while on the commode and had large amount of hard stool output followed by looser stool. Patient did have transient bradycardia with the event but vitals and blood pressure returned to normal. Mental status returned to normal shortly thereafter. * 2 bowel movements on 10/11/24. * KUB today: Fecal impaction of the colon and rectum. No obstruction. * Miralax 17 gram PO daily. * Increase Docusate sod/senna tablet 1 tab PO BID. * Bisacodyl 10 [place] x 1. * Bisacodyl 10 mg TX daily PRN. * Encourage water intake. (3) Nausea & vomiting: Qualifiers: Vomiting type: unspecified Qualified Code(s): R11.2 - Nausea with vomiting, unspecified Code(s): R11.2 - Nausea with vomiting, unspecified Status: Acute Assessment and Plan: * Prochlorperazine 10 mg IV q 6 PRN. (4) Vasovagal syncope: Code(s): R55 - Syncope and collapse Status: Acute Assessment and Plan: * Patient had some nausea vomiting at the care home likely due to fecal impaction. Her fall, and hindsight, is likely secondary to vasovagal event. Patient received Colace enema after arriving to the medical floor and subsequently went unresponsive while on the commode and had large amount of hard stool output followed by looser stool. Patient did have transient bradycardia with the event but vitals and blood pressure returned to normal. Mental status returned to normal shortly thereafter. Patient does have an elevated BUN from baseline likely has some component of hypovolemia which contributed to syncopal event. Will give 1 L fluids at 100 mL an hour repeat electrolyte panel and CBC in a.m. to re-evaluate. Patient's hemoglobin is relatively stable compared to last hospitalization and stool is brown without evidence of blood or melena. Will repeat CBC in a.m.. Will continue to monitor cardiac rhythm on telemetry. Unfortunately on review of telemetry during the patient's vagal event appears the patient had not been on telemetry for some time. Will monitor rhythm closely. The patient did have recent echocardiogram within the last 6 months so no need to repeat at this time. (5) Iron deficiency anemia: Qualifiers: Iron deficiency anemia type: chronic blood loss Qualified Code(s): D50.0 - Iron deficiency anemia secondary to blood loss (chronic) Code(s): D50.9 - Iron deficiency anemia, unspecified Status: Acute Assessment and Plan: * H&H 5.9/20.5 on 10/12/24, counts today 8.1/25.0 * Patient transfused 2 units of PRBC's on 10/12 with post H&H of 8.9/27.3. * Iron 93, TIBC 327, % sat 28. * Monitor levels. * CBC q 12. * Transfuse if Hgb <7. (6) Paroxysmal atrial fibrillation: Code(s): I48.0 - Paroxysmal atrial fibrillation Status: Chronic Assessment and Plan: * SR 70 today. * Eliquis stopped due to ulcer and drop in blood counts. * Diltiazem 120 mg PO daily. (7) Leukocytosis: Code(s): D72.829 - Elevated white blood cell count, unspecified Status: Acute Assessment and Plan: * WBC 15.9>14.8>12.9>7.6>7.5. * UA normal. * BCx2 no growth to date. * Afebrile. * Chest X-ray negative. * Monitor level. (8) B12 deficiency: Code(s): E53.8 - Deficiency of other specified B group vitamins Status: Acute Assessment and Plan: * B12 level 234. * Cyanocobalamin 1,000 mcg IM weekly x 4 weeks. Subjective Date/time seen: 10/15/24 11:31 Interval history: Patient reports feeling weak today and when ex got there patient was very tired. Patient denies chest pain, palpitations, headache, dizziness, nausea, or vomiting. Review of Systems Review of Systems: All systems reviewed & are unremarkable except as noted in HPI and below Exam Const: General: no acute distress Resp: Effort & Inspection: normal respiratory effort Auscultation: clear to auscultation bilaterally Cardio: Rate: regular rate Rhythm: regular rhythm Other: Telemetry- SR 70. GI: Other: semi firm, no tenderness, hypoactive bowel sounds. Neuro: Speech: normal speech Extrem: General: no pedal edema Other: Head CT negative. Psych: Mental Status: mental status grossly normal Affect: normal affect Objective Data Vital Signs Vital Signs: Vital Signs - 24 hr 10/14/24 11:45 10/14/24 12:02 10/14/24 12:06 Temperature Pulse Rate 74 Respiratory Rate Blood Pressure Pulse Oximetry Oxygen Delivery Room Air Room Air 10/14/24 13:43 10/14/24 16:02 10/14/24 20:00 Temperature 98.2 F Pulse Rate 65 74 78 Respiratory Rate 20 20 Blood Pressure 119/46 L Pulse Oximetry 99 94 Oxygen Delivery Room Air 10/14/24 20:00 10/14/24 21:22 10/15/24 00:00 Temperature 98.8 F Pulse Rate 79 78 75 Respiratory Rate 20 Blood Pressure 124/48 L Pulse Oximetry 94 Oxygen Delivery 10/15/24 03:55 10/15/24 04:00 Temperature 98.4 F Pulse Rate 83 79 Respiratory Rate 20 Blood Pressure 118/48 L Pulse Oximetry 96 Oxygen Delivery Intake/Output Intake/Output: Intake & Output 10/12/24 10/13/24 10/14/24 10/15/24 23:59 23:59 23:59 23:59 Intake Total 1000 1200 1100 360 Output Total 800 650 350 400 Balance 200 550 750 -40 Meds/Results Medications: Active Medications Generic Name Dose Route Start Last Admin Trade Name Freq PRN Reason Stop Dose Admin Acetaminophen 650 mg 10/11/24 20:25 10/13/24 20:46 Acetaminophen 325 Mg Tablet PO 650 mg Q4H PRN Administration Pain 1-3 or fever Amlodipine Besylate 5 mg 10/12/24 09:00 10/15/24 10:12 Amlodipine Besylate 5 Mg Tablet PO 5 mg DAILY ALEXIS Administration Bisacodyl 10 mg 10/12/24 15:11 Bisacodyl 10 Mg Suppository RECTAL DAILY PRN Constipation Cyanocobalamin 1,000 mcg 10/12/24 20:30 10/12/24 21:19 Cyanocobalamin Inj 1,000 Mcg/Ml Vial IM 11/02/24 09:01 1,000 mcg WEEKLY ALEXIS Administration Diltiazem HCl 120 mg 10/12/24 09:00 10/15/24 10:13 Diltiazem Hcl Cd 120 Mg Cap.24hr PO 120 mg DAILY ALEXIS Administration Donepezil HCl 10 mg 10/11/24 21:00 10/14/24 22:00 Donepezil Hcl 10 Mg Tablet PO 10 mg HS ALEXIS Administration Duloxetine HCl 60 mg 10/12/24 09:00 10/15/24 10:12 Duloxetine Hcl 60 Mg Capsule.Dr PO 60 mg DAILY ALEXIS Administration Fluticasone Propionate 2 spray 10/12/24 09:00 10/15/24 10:14 Fluticasone Propionate 0.05% Na Spr 16 Gm Btl (*Bkc) NASAL 2 spray DAILY ALEXIS Administration Lamotrigine 100 mg 10/12/24 09:00 10/15/24 10:13 Lamotrigine 100 Mg Tablet PO 100 mg DAILY ALEXIS Administration Levetiracetam 250 mg 10/11/24 21:00 10/15/24 10:13 Levetiracetam 250 Mg Tablet PO 250 mg Q12HR ALEXIS Administration Lorazepam 0.5 mg 10/12/24 20:26 10/14/24 13:31 Lorazepam (*Crx) 0.5 Mg Tablet PO 0.5 mg TID PRN Administration Anxiety Magnesium Oxide 400 mg 10/12/24 09:00 10/15/24 10:13 Magnesium Oxide 400 Mg Tablet PO 400 mg DAILY ALEXIS Administration Melatonin 3 mg 10/11/24 21:00 10/14/24 22:00 Melatonin 3 Mg Tablet PO 3 mg HS ALEXIS Administration Mirabegron 25 mg 10/12/24 09:00 10/15/24 10:12 Mirabegron 25 Mg Er Tablet PO 25 mg DAILY ALEXIS Administration Multivitamins/Calcium 1 tablet 10/12/24 09:00 10/15/24 10:13 Therapeutic Multivitamins/Minerals Tab (*Bkc) PO 1 tablet DAILY ALEXIS Administration Pantoprazole Sodium 40 mg 10/12/24 21:00 10/15/24 10:13 Pantoprazole Sodium Iv 40 Mg Vial IV PUSH Not Given Q12HR ALEXIS Polyethylene Glycol 17 gm 10/12/24 09:00 10/15/24 10:13 Polyethylene Glycol 3350 17 Gm Powd.Pack PO 17 gm DAILY ALEXIS Administration Prochlorperazine Edisylate 10 mg 10/12/24 14:58 10/12/24 21:19 Prochlorperazine Edisylate 10 Mg/2 Ml Vial IV PUSH 10 mg Q6H PRN Administration Nausea And Vomiting Senna/Docusate Sodium 1 tab 10/12/24 09:00 10/15/24 10:13 Senna/Docusate Sodium Tablet PO 1 tab DAILY ALEXIS Administration Radiology Results: ITS Impressions Head/Neck CTA 10/11/24 15:07 IMPRESSION: 1. 40% stenosis of the right carotid bulb relative to normal distal artery lumen diameter (NASCET criteria). 2. 40% stenosis of the left carotid bulb relative to normal distal artery lumen diameter. 3. 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 4. 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 No acute intracranial process or abnormally enhancing brain lesions. 5. Cerebral CT angiogram demonstrates no hemodynamically significant stenosis, aneurysm or thrombosis. Of note the majority of flow to the posterior cerebral arteries appears to be supplied from the bilateral internal carotid arteries via patent bilateral posterior communicating arteries which are significantly larger than the diminutive bilateral P1 segments. Chest X-Ray 10/11/24 15:26 IMPRESSION: 1: NO ACUTE CARDIOPULMONARY DISEASE. Abdomen/Pelvis CT 10/11/24 15:34 IMPRESSION: Possible mild fecal impaction. No CT findings of stercoral colitis. Otherwise, no acute abdominopelvic process detected. Brain MRI 10/14/24 16:29 IMPRESSION: No acute intracranial process. Labs Labs: Laboratory Results - last 24 hr 10/14/24 10/15/24 17:35 04:58 WBC 8.7 7.5 RBC 2.67 L 2.52 L Hgb 8.4 L 7.8 L Hct 26.5 L 24.5 L MCV 99.3 97.2 MCH 31.5 31.0 MCHC 31.7 L 31.8 L RDW 15.7 H 15.4 H Plt Count 189 174 MPV 10.3 10.4 Immature Gran % (Auto) 0.7 H 0.9 H Neut % (Auto) 77.0 H 75.9 H Lymph % (Auto) 12.2 L 13.8 L [place] % (Auto) 6.8 6.5 Eos % (Auto) 3.1 2.8 Baso % (Auto) 0.2 0.1 L Lymph # (Auto) 1.06 1.04 [place] # (Auto) 0.6 0.5 Eos # (Auto) 0.3 0.2 Baso # (Auto) 0.0 0.0 Abs Immat Gran (auto) 0.06 H 0.07 H Absolute Neuts (auto) 6.7 5.7 Absolute Nucleated RBC 0.120 H 0.070 H Nucleated RBC % 1.4 H 0.9 H Sodium 134 L Potassium 3.7 Chloride 105 Carbon Dioxide 24 Anion Gap 5 BUN 15 D Creatinine 0.88 Estim Creat Clear Calc 39 Estimated GFR > 60 Glucose 96 Calcium 8.5 Magnesium 2.0 Total Bilirubin 0.6 AST 26 ALT 16 Alkaline Phosphatase 68 Total Protein 5.7 L Albumin 3.1 L Quality VTE Prophylaxis VTE prophylaxis: mechanical ordered
[2024-10-15 12:09] LABS: Glucose Point of Care 133 mg/dl (65-105)
--- NOTE | 2024-10-15 12:15 | PC.NURSE ---
heike notified me that pt's visitor was concerned b/c pt was not as I had described her being this morning. I went in to assess pt and noted marked change in her neuro status. pt very drowsy, not able to hold conversation, unable to perform lower extremity neuro checks she had previously done. PHYSICS TEACHER at bedside assessing and new orders placed.
[2024-10-15 12:38] LABS: Basophils Percent Auto 0.1 % (0.2-1.2); Eosinophils Absolute Auto 0.2 K/mm3 (0-0.3); Eosinophils Percent Auto 2.1 % (0-4.4); Hemoglobin 8.1 g/dL (12.0-15.0); Immature Granulocyte Absolute 0.06 K/mm3 (0.00-0.031); Immature Granulocyte Percent A 0.9 % (0-0.5); Lymphocytes Absolute Auto 1.17 K/mm3 (0.9-3.2); Lymphocytes Percent Auto 16.6 % (18.3-44.2); Mean Corpuscular HGB Conc 32.4 g/dl (32-36); Mean Corpuscular Hemoglobin 31.5 pg (26-34); Mean Corpuscular Volume 97.3 fl (80-100); Monocytes Absolute Auto 0.6 K/mm3 (0.1-0.6); Monocytes Percent Auto 9.1 % (2.6-8.5); Neutrophils Percent Auto 71.2 % (45.5-73.1); Nucleated Red Blood Cells Perc 1.3 % (0.0-0.2); Platelet Count Result 186 k/mm3 (150-375); Red Blood Count 2.57 M/mm3 (4.2-5.4); Red Cell Distribution Width 15.5 % (11.5-14.5)
[2024-10-15] MEDS: SODIUM CHLORIDE 0.9% IV 1,000 ML 100 ML IV CONT (13:34)
[2024-10-15] MEDS: BISACODYL 10 MG SUPPOSITORY RECTAL (14:22)
[2024-10-15 17:17] LABS: IFOB Positive Control Positive; Immunochemical Fecal Occult Bl Positive (N)
[2024-10-15] MEDS: PANTOPRAZOLE SODIUM IV 40 MG VIAL IV PUSH (20:40)
[2024-10-15] MEDS: DONEPEZIL HCL 10 MG TABLET PO (20:41)
[2024-10-15] MEDS: MELATONIN 3 MG TABLET PO (20:41)
[2024-10-16] VITALS (11 sets, daily range): BP systolic 126–140; BP diastolic 48–60; PULSE 71–84; RESP 16–20; TEMP 36.5–37.1; O2SAT 91–97
[2024-10-16] MEDS: SODIUM CHLORIDE 0.9% IV 1,000 ML 75 ML IV CONT (03:00)
[2024-10-16 04:48] LABS: Basophils Percent Auto 0.1 % (0.2-1.2); Eosinophils Absolute Auto 0.2 K/mm3 (0-0.3); Eosinophils Percent Auto 2.2 % (0-4.4); Hematocrit 23.8 % (37.0-47.0); Hemoglobin 7.6 g/dL (12.0-15.0); Immature Granulocyte Absolute 0.07 K/mm3 (0.00-0.031); Lymphocytes Absolute Auto 1.32 K/mm3 (0.9-3.2); Lymphocytes Percent Auto 18.4 % (18.3-44.2); Mean Corpuscular HGB Conc 31.9 g/dl (32-36); Mean Corpuscular Hemoglobin 31.1 pg (26-34); Mean Corpuscular Volume 97.5 fl (80-100); Mean Platelet Volume 10.3 fl (7.4-10.4); Monocytes Absolute Auto 0.6 K/mm3 (0.1-0.6); Monocytes Percent Auto 8.4 % (2.6-8.5); Neutrophils Percent Auto 69.9 % (45.5-73.1); Nucleated Red Blood Cells Perc 0.7 % (0.0-0.2); Platelet Count Result 184 k/mm3 (150-375); Red Blood Count 2.44 M/mm3 (4.2-5.4); Red Cell Distribution Width 15.7 % (11.5-14.5); White Blood Count 7.2 K/mm3 (4.5-10.0)
[2024-10-16 05:21] LABS: Alanine Aminotransferase 14 U/L (6-35); Alkaline Phosphatase 68 U/L (38-126); Anion Gap 8 mmol/L (4-12); Aspartate Amino Transferase 23 U/L (14-36); Bilirubin,Total 0.4 mg/dL (0.2-1.3); Blood Urea Nitrogen 15 mg/dL (7-17); Calcium 8.7 mg/dL (8.4-10.2); Carbon Dioxide 24 mmol/L (22-30); Chloride 106 mmol/L (98-107); Estimated CRCL calculation 38 ml/min; Estimated Glomerular Filt Rate 59; Glucose 96 mg/dL (65-110); Magnesium 2.1 mg/dL (1.6-2.3); Potassium 3.9 mmol/L (3.4-5.0); Sodium 138 mmol/L (137-145); Total Protein 5.6 g/dL (6.3-8.2)
[2024-10-16 08:12] LABS: Glucose Point of Care 104 mg/dl (65-105)
[2024-10-16] MEDS: dilTIAZem HCL CD 120 MG CAP.24HR PO (08:20)
[2024-10-16] MEDS: lamoTRIgine 100 MG TABLET PO (08:20)
[2024-10-16] MEDS: PANTOPRAZOLE SODIUM IV 40 MG VIAL IV PUSH (08:20)
[2024-10-16] MEDS: levETIRAcetam 250 MG TABLET PO ×2 (08:20→20:37)
[2024-10-16] MEDS: amLODIPine BESYLATE 5 MG TABLET PO (08:20)
[2024-10-16] MEDS: DULoxetine HCL 60 MG CAPSULE.DR PO (08:20)
[2024-10-16] MEDS: SENNA/DOCUSATE SODIUM TABLET 1 TAB PO ×2 (08:20→16:50)
[2024-10-16] MEDS: polyethylene glycoL 3350 17 GM POWD.PACK PO ×2 (08:20→16:50)
[2024-10-16] MEDS: THERAPEUTIC MULTIVITAMINS/MINERALS TAB (*BKC) 1 TABLET PO (08:20)
[2024-10-16] MEDS: MIRABEGRON 25 MG ER TABLET PO (08:20)
[2024-10-16] MEDS: FLUTICASONE PROPIONATE 0.05% NA SPR 16 GM BTL (*BKC) 2 SPRAY NASAL (08:21)
[2024-10-16] MEDS: MAGNESIUM OXIDE 400 MG TABLET PO (08:21)
--- NOTE | 2024-10-16 09:38 | PCPTNOTE ---
Patient refused treatment this session. Patient did not give reason why, other than she was too tired.
--- NOTE | 2024-10-16 11:31 | PCOTNOTE ---
Attempted to see Patient at this time. Patient refused to participate in any activity, Patient verbalized, just leave me alone. Patient states she is having chest pain, notified RN, she is following through, will try back this P.M.
--- NOTE | 2024-10-16 11:48 | ECG_ITS ---
Test Date: 2024-10-16 12:02:23 Measurements Intervals [place] Rate: 84 P: 1 SD: 173 QRS: -7 QRSD: 125 T: 48 QT: 375 QTc: 444 Interpretive Statements SINUS RHYTHM LEFT BUNDLE BRANCH BLOCK BASELINE ARTIFACT- I, II, AVR ABNORMAL ECG Compared to ECG 10/11/2024 13:50:30 No significant changes Electronically Signed On 10-16-2024 12:05:26 CDT by Vladimir Sosa D.O.
--- NOTE | 2024-10-16 11:49 | PC.NURSE ---
Patient told therapy that her chest hurt. This nurse went in to assess patient and patient stated my chest is heavy but it doesn't hurt. I really just want people to leave me alone. Notified Dr. Davis of patients statement at [phone] and was given orders for a stat EKG.
--- NOTE | 2024-10-16 12:22 | PM.IMPN ---
Progress Note: A&P Assessment and Plan (1) Acute gastric ulcer: Code(s): K25.3 - Acute gastric ulcer without hemorrhage or perforation Status: Acute Assessment and Plan: Patient with n/v and dry coffee ground around mouth and on cheek on 10/12/2024. Eliquis stopped. PPI started. GI consulted and EGD done 10/12/24 showing a large hiatal hernia without obstruction and a single cratered acute benign ulcer measuring 12 mm was visualized in the fundus in the proximal part of the hiatal hernia. There is no visible vessel of active bleeding. The stomach at the body, cardia and fundus was normal with no ulcers or masses. The bulb and second portion of duodenum was normal with no ulcers or masses. Coffee grounds noted in body. Stool guaiac positive. Full liquid diet that was advanced to heart healthy diet. PT/OT. Change to oral PPI. Monitor HH (2) Fecal impaction: Code(s): K56.41 - Fecal impaction Status: Acute Assessment and Plan: Patient [facility]v [facility] the [facility] likely due to fecal impaction. Her fall, and hindsight, is likely secondary to vasovagal event. Patient received Colace enema after arriving to the medical floor and subsequently went unresponsive while on the commode and had large amount of hard stool output followed by looser stool. Patient did have transient bradycardia with the event but vitals and blood pressure returned to normal. Mental status returned to normal shortly thereafter. Miralax and [place] added KUB yesterday showing fecal impaction of the colon and rectum so increased on Docusate sod/senna to 1 tab PO BID and Bisacodyl 10 [place] x 1. No stool output documented today and only 1 yesterday. Advance Miralax and given SS enema. Monitor stool output. (3) Nausea & vomiting: Qualifiers: Vomiting type: unspecified Qualified Code(s): R11.2 - Nausea with vomiting, unspecified Code(s): R11.2 - Nausea with vomiting, unspecified Status: Acute Assessment and Plan: No further events. Patient has Prochlorperazine 10 mg IV q 6 available PRN. (4) Vasovagal syncope: Code(s): R55 - Syncope and collapse Status: Acute Assessment and Plan: As above. Syncope likely secondary to vasovagal event with passing large amount of hard stool. Mental status returned to normal shortly thereafter. Brain MRI showing no acute findings. Patient did have transient bradycardia with the event but vitals and blood pressure returned to normal. Not on tele at the time. 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 EKG repeated today for her complaint of CP but no change from prior. [place] her chest pain is related to chest wall pain. Tele reviewed and showing no acute findings. PT/OT. Okay to stop tele (5) Iron deficiency anemia: Qualifiers: Iron deficiency anemia type: chronic blood loss Qualified Code(s): D50.0 - Iron deficiency anemia secondary to blood loss (chronic) Code(s): D50.9 - Iron deficiency anemia, unspecified Status: Acute Assessment and Plan: Patient with acute blood loss anemia and underlying iron deficiency. Baseline Hgb 9-10 range. Iron sat 8% in August but better here at 28% but ferritin still low at 18. Hgb 8.7 on admission but dropped to 5.9 and she was transfused 2 units of PRBC's on 10/12 Hgb climbed to the 7-8 range and stable. Monitor hgb and transfuse to a stable hgb (6) Paroxysmal atrial fibrillation: Code(s): I48.0 - Paroxysmal atrial fibrillation Status: Chronic Assessment and Plan: EKG showing sinus mechanism Eliquis stopped due to ulcer and drop in blood counts. Continue Diltiazem (7) Leukocytosis: Code(s): D72.829 - Elevated white blood cell count, unspecified Status: Acute Assessment and Plan: WBC elevated to 16K on admission. UA normal. BCx no growth to date. CXR negative. Probably stress response. WBC normal now. Follow periodically (8) B12 deficiency: Code(s): E53.8 - Deficiency of other specified B group vitamins Status: Acute Assessment and Plan: B12 level 234. Cyanocobalamin 1,000 mcg IM weekly x 4 weeks. Plan DVT Prophylaxis - SCD Code status - DNR Subjective Date/time seen: 10/16/24 12:22 Interval history: 83yo female with pAFib, schizoaffective d/o, and seizures here for ground level fall. Assuming care. Chart reveiwed. She is alert but confused. She states she 'don't feel good'. She complains of chest pain and rubs the left upper chest but cannot provide further details. Review of Systems Review of Systems: ROS unobtainable: Yes unobtainable due to mental status Exam Narrative: AF 97.7 132/60 82 20 93% ra Gen - NARD Chest - CTA bilaterally, nml RR, palpable left upper chest wall pain (she nods when asked if this was her chest pain complaint) CV - RRR S1/S2 with 2/6 systolic murmur t/o the precordium. Tele showing no acute dysrhythmias Abd - Soft, NT/ND, Positive BS Ext - No pedal edema Neuro - Alert and oriented x 1 ('hospital'). Weak left UE. Psych - calm and intermittently cooperative Skin - Warm and dry Objective Data Vital Signs Vital Signs: Vital Signs - 24 hr 10/15/24 14:00 10/15/24 16:00 10/15/24 20:00 Temperature 97.6 F Pulse Rate 78 75 80 Respiratory Rate 18 Blood Pressure 125/61 Pulse Oximetry 95 10/15/24 20:41 10/16/24 00:00 10/16/24 03:59 Temperature 99.0 F 97.7 F Pulse Rate 87 81 74 Respiratory Rate 18 20 Blood Pressure 126/48 L 140/48 L Pulse Oximetry 93 93 10/16/24 04:00 10/16/24 08:00 10/16/24 08:24 Temperature Pulse Rate 73 82 Respiratory Rate Blood Pressure 132/60 Pulse Oximetry Intake/Output Intake/Output: Intake & Output 10/13/24 10/14/24 10/15/24 10/16/24 23:59 23:59 23:59 23:59 Intake Total 1200 1100 1840 630 Output Total 650 350 800 800 Balance 258 080 2780 -170 Meds/Results Medications: Active Medications Generic Name Dose Route Start Last Admin Trade Name Freq PRN Reason Stop Dose Admin Acetaminophen 650 mg 10/11/24 20:25 10/13/24 20:46 Acetaminophen 325 Mg Tablet PO 650 mg Q4H PRN Administration Pain 1-3 or fever Amlodipine Besylate 5 mg 10/12/24 09:00 10/16/24 08:20 Amlodipine Besylate 5 Mg Tablet PO 5 mg DAILY ALEXIS Administration Bisacodyl 10 mg 10/12/24 15:11 Bisacodyl 10 Mg Suppository RECTAL DAILY PRN Constipation Cyanocobalamin 1,000 mcg 10/12/24 20:30 10/12/24 21:19 Cyanocobalamin Inj 1,000 Mcg/Ml Vial IM 11/02/24 09:01 1,000 mcg WEEKLY ALEXIS Administration Diltiazem HCl 120 mg 10/12/24 09:00 10/16/24 08:20 Diltiazem Hcl Cd 120 Mg Cap.24hr PO 120 mg DAILY ALEXIS Administration Donepezil HCl 10 mg 10/11/24 21:00 10/15/24 20:41 Donepezil Hcl 10 Mg Tablet PO 10 mg HS ALEXIS Administration Duloxetine HCl 60 mg 10/12/24 09:00 10/16/24 08:20 Duloxetine Hcl 60 Mg Capsule.Dr PO 60 mg DAILY ALEXIS Administration Fluticasone Propionate 2 spray 10/12/24 09:00 10/16/24 08:21 Fluticasone Propionate 0.05% Na Spr 16 Gm Btl (*Bkc) NASAL 2 spray DAILY ALEXIS Administration Sodium Chloride 1,000 mls @ 75 mls/hr 10/15/24 12:20 10/16/24 03:00 Normal Saline Iv IV CONT 75 mls/hr .[id number] ALEXIS Administration Lamotrigine 100 mg 10/12/24 09:00 10/16/24 08:20 Lamotrigine 100 Mg Tablet PO 100 mg DAILY ALEXIS Administration Levetiracetam 250 mg 10/11/24 21:00 10/16/24 08:20 Levetiracetam 250 Mg Tablet PO 250 mg Q12HR ALEXIS Administration Lorazepam 0.5 mg 10/12/24 20:26 10/14/24 13:31 Lorazepam (*Crx) 0.5 Mg Tablet PO 0.5 mg TID PRN Administration Anxiety Magnesium Oxide 400 mg 10/12/24 09:00 10/16/24 08:21 Magnesium Oxide 400 Mg Tablet PO 400 mg DAILY ALEXIS Administration Melatonin 3 mg 10/11/24 21:00 10/15/24 20:41 Melatonin 3 Mg Tablet PO 3 mg HS ALEXIS Administration Mirabegron 25 mg 10/12/24 09:00 10/16/24 08:20 Mirabegron 25 Mg Er Tablet PO 25 mg DAILY ALEXIS Administration Multivitamins/Calcium 1 tablet 10/12/24 09:00 10/16/24 08:20 Therapeutic Multivitamins/Minerals Tab (*Bkc) PO 1 tablet DAILY ALEXIS Administration Pantoprazole Sodium 40 mg 10/12/24 21:00 10/16/24 08:20 Pantoprazole Sodium Iv 40 Mg Vial IV PUSH 40 mg Q12HR ALEXIS Administration Polyethylene Glycol 17 gm 10/12/24 09:00 10/16/24 08:20 Polyethylene Glycol 3350 17 Gm Powd.Pack PO 17 gm DAILY ALEXIS Administration Prochlorperazine Edisylate 10 mg 10/12/24 14:58 10/12/24 21:19 Prochlorperazine Edisylate 10 Mg/2 Ml Vial IV PUSH 10 mg Q6H PRN Administration Nausea And Vomiting Senna/Docusate Sodium 1 tab 10/15/24 17:00 10/16/24 08:20 Senna/Docusate Sodium Tablet PO 1 tab BID ALEXIS Administration Radiology Results: ITS Impressions Head/Neck CTA 10/11/24 15:07 IMPRESSION: 1. 40% stenosis of the right carotid bulb relative to normal distal artery lumen diameter (NASCET criteria). 2. 40% stenosis of the left carotid bulb relative to normal distal artery lumen diameter. 3. 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 4. 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 No acute intracranial process or abnormally enhancing brain lesions. 5. Cerebral CT angiogram demonstrates no hemodynamically significant stenosis, aneurysm or thrombosis. Of note the majority of flow to the posterior cerebral arteries appears to be supplied from the bilateral internal carotid arteries via patent bilateral posterior communicating arteries which are significantly larger than the diminutive bilateral P1 segments. Chest X-Ray 10/11/24 15:26 IMPRESSION: 1: NO ACUTE CARDIOPULMONARY DISEASE. Abdomen/Pelvis CT 10/11/24 15:34 IMPRESSION: Possible mild fecal impaction. No CT findings of stercoral colitis. Otherwise, no acute abdominopelvic process detected. Brain MRI 10/14/24 16:29 IMPRESSION: No acute intracranial process. Abdomen X-Ray 10/15/24 13:23 IMPRESSION: 1. Fecal impaction of the colon and rectum. No obstruction. Head CT 10/15/24 13:37 Impression: No intracranial hemorrhage, mass, or acute infarct. Atrophy and chronic white matter changes, as above. Labs Labs: Laboratory Results - last 24 hr 10/15/24 10/15/24 10/16/24 12:32 16:05 04:15 WBC 7.0 7.2 RBC 2.57 L 2.44 L Hgb 8.1 L 7.6 L Hct 25.0 L 23.8 L MCV 97.3 97.5 MCH 31.5 31.1 MCHC 32.4 31.9 L RDW 15.5 H 15.7 H Plt Count 186 184 MPV 10.0 10.3 Immature Gran % (Auto) 0.9 H 1.0 H Neut % (Auto) 71.2 69.9 Lymph % (Auto) 16.6 L 18.4 [place] % (Auto) 9.1 H 8.4 Eos % (Auto) 2.1 2.2 Baso % (Auto) 0.1 L 0.1 L Lymph # (Auto) 1.17 1.32 [place] # (Auto) 0.6 0.6 Eos # (Auto) 0.2 0.2 Baso # (Auto) 0.0 0.0 Abs Immat Gran (auto) 0.06 H 0.07 H Absolute Neuts (auto) 5.0 5.0 Absolute Nucleated RBC 0.090 H 0.050 H Nucleated RBC % 1.3 H 0.7 H Sodium 138 Potassium 3.9 Chloride 106 Carbon Dioxide 24 Anion Gap 8 BUN 15 Creatinine 0.91 Estim Creat Clear Calc 38 Estimated GFR 59 Glucose 96 POC Capillary Glucose Calcium 8.7 Magnesium 2.1 Total Bilirubin 0.4 AST 23 ALT 14 Alkaline Phosphatase 68 Total Protein 5.6 L Albumin 3.0 L Stl Occult Blood (IFOB) Positive H 10/16/24 07:59 WBC RBC Hgb Hct MCV MCH MCHC RDW Plt Count MPV Immature Gran % (Auto) Neut % (Auto) Lymph % (Auto) [place] % (Auto) Eos % (Auto) Baso % (Auto) Lymph # (Auto) [place] # (Auto) Eos # (Auto) Baso # (Auto) Abs Immat Gran (auto) Absolute Neuts (auto) Absolute Nucleated RBC Nucleated RBC % Sodium Potassium Chloride Carbon Dioxide Anion Gap BUN Creatinine Estim Creat Clear Calc Estimated GFR Glucose POC Capillary Glucose 104 Calcium Magnesium Total Bilirubin AST ALT Alkaline Phosphatase Total Protein Albumin Stl Occult Blood (IFOB)
[2024-10-16] MEDS: MELATONIN 3 MG TABLET PO (20:37)
[2024-10-16] MEDS: DONEPEZIL HCL 10 MG TABLET PO (20:37)
[2024-10-16] MEDS: ACETAMINOPHEN 325 MG TABLET 650 MG PO (20:44)
[2024-10-17] VITALS (8 sets, daily range): BP systolic 126–151; BP diastolic 59–77; PULSE 64–78; RESP 16–20; TEMP 36.3–36.7; O2SAT 94–96
[2024-10-17 06:00] LABS: Basophils Percent Auto 0.3 % (0.2-1.2); Eosinophils Absolute Auto 0.2 K/mm3 (0-0.3); Eosinophils Percent Auto 3.5 % (0-4.4); Hematocrit 26.2 % (37.0-47.0); Hemoglobin 8.2 g/dL (12.0-15.0); Immature Granulocyte Absolute 0.06 K/mm3 (0.00-0.031); Immature Granulocyte Percent A 0.9 % (0-0.5); Lymphocytes Absolute Auto 1.04 K/mm3 (0.9-3.2); Lymphocytes Percent Auto 16.3 % (18.3-44.2); Mean Corpuscular HGB Conc 31.3 g/dl (32-36); Mean Corpuscular Hemoglobin 30.9 pg (26-34); Mean Corpuscular Volume 98.9 fl (80-100); Mean Platelet Volume 10.4 fl (7.4-10.4); Monocytes Absolute Auto 0.5 K/mm3 (0.1-0.6); Neutrophils Absolute Auto 4.5 K/mm3 (1.3-6.7); Nucleated Red Blood Cells Perc 0.5 % (0.0-0.2); Platelet Count Result 199 k/mm3 (150-375); Red Blood Count 2.65 M/mm3 (4.2-5.4); Red Cell Distribution Width 15.9 % (11.5-14.5); White Blood Count 6.4 K/mm3 (4.5-10.0)
[2024-10-17 06:09] LABS: Alanine Aminotransferase 13 U/L (6-35); Albumin Level 3.2 g/dL (3.5-5.1); Alkaline Phosphatase 74 U/L (38-126); Anion Gap 5 mmol/L (4-12); Aspartate Amino Transferase 23 U/L (14-36); Bilirubin,Total 0.4 mg/dL (0.2-1.3); Blood Urea Nitrogen 13 mg/dL (7-17); Calcium 8.9 mg/dL (8.4-10.2); Carbon Dioxide 26 mmol/L (22-30); Chloride 105 mmol/L (98-107); Estimated CRCL calculation 41 ml/min; Estimated Glomerular Filt Rate > 60; Glucose 93 mg/dL (65-110); Magnesium 2.2 mg/dL (1.6-2.3); Potassium 3.8 mmol/L (3.4-5.0); Sodium 136 mmol/L (137-145); Total Protein 5.9 g/dL (6.3-8.2)
[2024-10-17 08:03] LABS: Glucose Point of Care 98 mg/dl (65-105)
[2024-10-17] MEDS: dilTIAZem HCL CD 120 MG CAP.24HR PO (09:30)
[2024-10-17] MEDS: levETIRAcetam 250 MG TABLET PO ×2 (09:31→20:22)
[2024-10-17] MEDS: FLUTICASONE PROPIONATE 0.05% NA SPR 16 GM BTL (*BKC) 2 SPRAY NASAL (09:34)
--- NOTE | 2024-10-17 09:36 | PC.NURSE ---
pt refusing any PO intake, she refused most of breakfast, at this time I was able to get pt to take 2 pills but she is refusing to swallow any more pills, she is withdrawn and takes a lot of encouragement to interact, will continue to monitor and assist pt
--- NOTE | 2024-10-17 11:01 | PCNFU ---
Nutrition Follow-Up Complete: Inadequate Oral Intake a related to possible CVA as evidenced by limited oral intake reported. Meet estimated nutritional needs. Patient has limited progress towards goal. We will continue current goal. Pt current nutrition is Heart Healthy with Ensure Enlive TID. Nutrition recommendation: Nutritional Ice Cream TID. Last recorded weight is 71.2 kg, no new weight to report. Bowel Motility: +BM reported 10/15 Labs Reviewed: Na 136, Hct 26.2.Alb 3.2 Meds Noted: Miralax, Keppra, Cymbalta, B12 Skin: no pressure ulcers reported Additional Notes: Patient current with Heart Healthy diet. Oral Intake remains poor, 0% reported for breakfast today. Spoke with Hospitalist today regarding oral intake and plans to discuss with . Encourage PO intake. Nutritional Ice Cream added TID for additional 300 kcal and 9 gm protein. Agree with diet orders. Will continue to monitor weight, labs, skin, diet orders. meds every 3 days.
[2024-10-17 11:54] LABS: Glucose Point of Care 94 mg/dl (65-105)
[2024-10-17] MEDS: SENNA/DOCUSATE SODIUM TABLET 1 TAB PO (12:32)
[2024-10-17] MEDS: ACETAMINOPHEN 325 MG TABLET 650 MG PO (12:32)
--- NOTE | 2024-10-17 12:33 | PC.NURSE ---
GAETANO Lee here to visit pt, he is here to encourage pt to eat lunch and assist her, able to get a few more pills down at this time
--- NOTE | 2024-10-17 13:02 | P.PNIM_ITS ---
Progress Note: A&P Assessment and Plan (1) Acute gastric ulcer: Code(s): K25.3 - Acute gastric ulcer without hemorrhage or perforation Status: Acute Assessment and Plan: Patient with n/v and dry coffee ground around mouth and on cheek on 10/12/2024. Eliquis stopped. PPI started. GI consulted and EGD done 10/12/24 showing a large hiatal hernia without obstruction and a single cratered acute benign ulcer measuring 12 mm was visualized in the fundus in the proximal part of the hiatal hernia. There is no visible vessel of active bleeding. The stomach at the body, cardia and fundus was normal with no ulcers or masses. The bulb and second portion of duodenum was normal with no ulcers or masses. Coffee grounds noted in body of stomach. Stool guaiac positive. Full liquid diet that was advanced to heart healthy diet. Hgb low but stable in the 7-8 range PT/OT. Changed to oral PPI. Monitor HH (2) Fecal impaction: Code(s): K56.41 - Fecal impaction Status: Acute Assessment and Plan: Patient had n/v at the residential likely due to fecal impaction. Her fall is likely secondary to vasovagal event. Patient received Colace enema after arriving to the medical floor and subsequently went unresponsive while on the commode and had large amount of hard stool output followed by looser stool. Patient did have transient bradycardia with the event but vitals and blood pressure returned to normal. Mental status returned to normal shortly thereafter. Miralax and Senakot added KUB 10/15 showing fecal impaction of the colon and rectum. Docusate sod/senna increased to 1 tab PO BID and Bisacodyl 10 CT x 1. Miralax advanced and enema given. No stool output documented today or yesterday; last BM wsa 10/15 Advance Miralax again and repeat SS enema. Monitor stool output. (3) Anorexia: Code(s): R63.0 - Anorexia Status: Acute Assessment and Plan: Patient is not eating much here mostly anywhere from 10-50%. She did eat well on 10/15 at 100%. Discussed with ship pilot. Supplements ordered and encouraged. (4) Nausea & vomiting: Qualifiers: Vomiting type: unspecified Qualified Code(s): R11.2 - Nausea with vomiting, unspecified Code(s): R11.2 - Nausea with vomiting, unspecified Status: Acute Assessment and Plan: No further events. Patient has Prochlorperazine 10 mg IV q 6 available PRN. (5) Vasovagal syncope: Code(s): R55 - Syncope and collapse Status: Acute Assessment and Plan: As above. Syncope likely secondary to vasovagal event with passing large amount of hard stool. Mental status returned to normal shortly thereafter. Brain MRI showing no acute findings. Patient did have transient bradycardia with the event but vitals and blood pressure returned to normal. Not on tele at the time. 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 EKG repeated 10/17 for her complaint of CP but no change from prior. Forbes her chest pain is related to chest wall pain. Tele reviewed and showing no acute findings. PT/OT. Okay to stop tele (6) Iron deficiency anemia: Qualifiers: Iron deficiency anemia type: chronic blood loss Qualified Code(s): D50.0 - Iron deficiency anemia secondary to blood loss (chronic) Code(s): D50.9 - Iron deficiency anemia, unspecified Status: Acute Assessment and Plan: Patient with acute blood loss anemia and underlying iron deficiency. Baseline Hgb 9-10 range. Iron sat 8% in August but better here at 28% but ferritin still low at 18. Hgb 8.7 on admission but dropped to 5.9 and she was transfused 2 units of PRBC's on 10/12 Hgb climbed to the 7-8 range and stable. Monitor hgb and transfuse to a stable hgb (7) Paroxysmal atrial fibrillation: Code(s): I48.0 - Paroxysmal atrial fibrillation Status: Chronic Assessment and Plan: EKG showing sinus mechanism Eliquis stopped due to ulcer and drop in blood counts. Continue Diltiazem. Also on Norvasc but will stop since these are both calcium channel blockers. (8) Leukocytosis: Code(s): D72.829 - Elevated white blood cell count, unspecified Status: Acute Assessment and Plan: WBC elevated to 16K on admission. UA normal. BCx no growth to date. CXR negative. Probably stress response. WBC normal now. Follow periodically (9) B12 deficiency: Code(s): E53.8 - Deficiency of other specified B group vitamins Status: Acute Assessment and Plan: B12 level 234. Cyanocobalamin 1,000 mcg IM weekly x 4 weeks. Add oral B12. Plan DVT Prophylaxis - SCD Code status - DNR Subjective Date/time seen: 10/17/24 13:02 Interval history: 83yo female with pAFib, schizoaffective d/o, dementia and seizures here for ground level fall. SHe is alert but confused so hx unreliable. She feels 'not good'. Review of Systems Review of Systems: ROS unobtainable: Yes unobtainable due to mental status Exam Narrative: AF 98.0 126/59 78 16 96% ra Gen - NARD Chest - CTA bilaterally, nml RR, CV - RRR S1/S2 with 2/6 systolic murmur but no rub Abd - Soft, ND, mild diffuse pain. Ext - No pedal edema Neuro - Alert and confused but more oriented today. Psych - calm and intermittently cooperative Skin - Warm and dry Objective Data Vital Signs Vital Signs: Vital Signs - 24 hr 10/16/24 14:00 10/16/24 16:00 10/16/24 19:50 Temperature 97.7 F Pulse Rate 71 72 74 Respiratory Rate 20 20 Blood Pressure 126/54 L Pulse Oximetry 97 91 Oxygen Delivery Room Air Fraction of Inspired Oxygen 21 10/16/24 20:00 10/16/24 20:40 10/17/24 00:00 Temperature 98.7 F Pulse Rate 73 75 64 Respiratory Rate 16 Blood Pressure 139/57 L Pulse Oximetry 94 Oxygen Delivery Fraction of Inspired Oxygen 10/17/24 04:00 10/17/24 06:59 Temperature 98.0 F Pulse Rate 65 78 Respiratory Rate 16 Blood Pressure 126/59 L Pulse Oximetry 96 Oxygen Delivery Fraction of Inspired Oxygen Intake/Output Intake/Output: Intake & Output 10/14/24 10/15/24 10/16/24 10/17/24 23:59 23:59 23:59 23:59 Intake Total 1100 1840 1000 200 Output Total 435 955 9980 1200 Balance 750 1040 -600 -1000 Meds/Results Medications: Active Medications Generic Name Dose Route Start Last Admin Trade Name Freq PRN Reason Stop Dose Admin Acetaminophen 650 mg 10/11/24 20:25 10/17/24 12:32 Acetaminophen 325 Mg Tablet PO 650 mg Q4H PRN Administration Pain 1-3 or fever Amlodipine Besylate 5 mg 10/12/24 09:00 10/16/24 08:20 Amlodipine Besylate 5 Mg Tablet PO 5 mg DAILY ALEXIS Administration Bisacodyl 10 mg 10/12/24 15:11 Bisacodyl 10 Mg Suppository RECTAL DAILY PRN Constipation Cyanocobalamin 1,000 mcg 10/12/24 20:30 10/12/24 21:19 Cyanocobalamin Inj 1,000 Mcg/Ml Vial IM 11/02/24 09:01 1,000 mcg WEEKLY ALEXIS Administration Cyanocobalamin 1,000 mcg 10/17/24 09:00 Cyanocobalamin 1,000 Mcg Tablet PO QAM ALEXIS Diltiazem HCl 120 mg 10/12/24 09:00 10/17/24 09:30 Diltiazem Hcl Cd 120 Mg Cap.24hr PO 120 mg DAILY ALEXIS Administration Donepezil HCl 10 mg 10/11/24 21:00 10/16/24 20:37 Donepezil Hcl 10 Mg Tablet PO 10 mg HS ALEXIS Administration Duloxetine HCl 60 mg 10/12/24 09:00 10/16/24 08:20 Duloxetine Hcl 60 Mg Capsule.Dr PO 60 mg DAILY ALEXIS Administration Fluticasone Propionate 2 spray 10/12/24 09:00 10/17/24 09:34 Fluticasone Propionate 0.05% Na Spr 16 Gm Btl (*Bkc) NASAL 2 spray DAILY ALEXIS Administration Lamotrigine 100 mg 10/12/24 09:00 10/16/24 08:20 Lamotrigine 100 Mg Tablet PO 100 mg DAILY ALEXIS Administration Levetiracetam 250 mg 10/11/24 21:00 10/17/24 09:31 Levetiracetam 250 Mg Tablet PO 250 mg Q12HR ALEXIS Administration Lorazepam 0.5 mg 10/12/24 20:26 10/14/24 13:31 Lorazepam (*Crx) 0.5 Mg Tablet PO 0.5 mg TID PRN Administration Anxiety Magnesium Oxide 400 mg 10/12/24 09:00 10/16/24 08:21 Magnesium Oxide 400 Mg Tablet PO 400 mg DAILY ALEXIS Administration Melatonin 3 mg 10/11/24 21:00 10/16/24 20:37 Melatonin 3 Mg Tablet PO 3 mg HS ALEXIS Administration Mirabegron 25 mg 10/12/24 09:00 10/16/24 08:20 Mirabegron 25 Mg Er Tablet PO 25 mg DAILY ALEXIS Administration Multivitamins/Calcium 1 tablet 10/12/24 09:00 10/16/24 08:20 Therapeutic Multivitamins/Minerals Tab (*Bkc) PO 1 tablet DAILY ALEXIS Administration Pantoprazole Sodium 40 mg 10/17/24 09:00 Pantoprazole 40 Mg Tablet PO QAM [facility] Polyethylene Glycol 17 gm 10/16/24 17:00 10/16/24 16:50 Polyethylene Glycol 3350 17 Gm Powd.Pack PO 17 gm BID ALEXIS Administration Prochlorperazine Edisylate 10 mg 10/12/24 14:58 10/12/24 21:19 Prochlorperazine Edisylate 10 Mg/2 Ml Vial IV PUSH 10 mg Q6H PRN Administration Nausea And Vomiting Senna/Docusate Sodium 1 tab 10/15/24 17:00 10/17/24 12:32 Senna/Docusate Sodium Tablet PO 1 tab BID ALEXIS Administration Radiology Results: ITS Impressions Head/Neck CTA 10/11/24 15:07 IMPRESSION: 1. 40% stenosis of the right carotid bulb relative to normal distal artery lumen diameter (NASCET criteria). 2. 40% stenosis of the left carotid bulb relative to normal distal artery lumen diameter. 3. 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 4. 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 No acute intracranial process or abnormally enhancing brain lesions. 5. Cerebral CT angiogram demonstrates no hemodynamically significant stenosis, aneurysm or thrombosis. Of note the majority of flow to the posterior cerebral arteries appears to be supplied from the bilateral internal carotid arteries via patent bilateral posterior communicating arteries which are significantly larger than the diminutive bilateral P1 segments. Chest X-Ray 10/11/24 15:26 IMPRESSION: 1: NO ACUTE CARDIOPULMONARY DISEASE. Abdomen/Pelvis CT 10/11/24 15:34 IMPRESSION: Possible mild fecal impaction. No CT findings of stercoral colitis. Otherwise, no acute abdominopelvic process detected. Brain MRI 10/14/24 16:29 IMPRESSION: No acute intracranial process. Abdomen X-Ray 10/15/24 13:23 IMPRESSION: 1. Fecal impaction of the colon and rectum. No obstruction. Head CT 10/15/24 13:37 Impression: No intracranial hemorrhage, mass, or acute infarct. Atrophy and chronic white matter changes, as above. Labs Labs: Laboratory Results - last 24 hr 10/17/24 10/17/24 10/17/24 05:13 07:57 11:48 WBC 6.4 RBC 2.65 L Hgb 8.2 L Hct 26.2 L MCV 98.9 MCH 30.9 MCHC 31.3 L RDW 15.9 H Plt Count 199 MPV 10.4 Immature Gran % (Auto) 0.9 H Neut % (Auto) 71.0 Lymph % (Auto) 16.3 L [place] % (Auto) 8.0 Eos % (Auto) 3.5 Baso % (Auto) 0.3 Lymph # (Auto) 1.04 [place] # (Auto) 0.5 Eos # (Auto) 0.2 Baso # (Auto) 0.0 Abs Immat Gran (auto) 0.06 H Absolute Neuts (auto) 4.5 Absolute Nucleated RBC 0.030 H Nucleated RBC % 0.5 H Sodium 136 L Potassium 3.8 Chloride 105 Carbon Dioxide 26 Anion Gap 5 BUN 13 Creatinine 0.83 Estim Creat Clear Calc 41 Estimated GFR > 60 Glucose 93 POC Capillary Glucose 98 94 Calcium 8.9 Magnesium 2.2 Total Bilirubin 0.4 AST 23 ALT 13 Alkaline Phosphatase 74 Total Protein 5.9 L Albumin 3.2 L
[2024-10-17 17:04] LABS: Glucose Point of Care 111 mg/dl (65-105)
--- NOTE | 2024-10-17 19:21 | PC.NURSE ---
pt has refused meds today for the most part, she has also refused meals, MD made aware and reviewed with compounding pharmacy technician, supplements added
[2024-10-17] MEDS: MELATONIN 3 MG TABLET PO (20:22)
[2024-10-17] MEDS: DONEPEZIL HCL 10 MG TABLET PO (20:22)
[2024-10-18 05:59] LABS: Basophils Percent Auto 0.3 % (0.2-1.2); Eosinophils Absolute Auto 0.2 K/mm3 (0-0.3); Eosinophils Percent Auto 3.3 % (0-4.4); Hematocrit 26.6 % (37.0-47.0); Hemoglobin 8.2 g/dL (12.0-15.0); Immature Granulocyte Absolute 0.04 K/mm3 (0.00-0.031); Immature Granulocyte Percent A 0.7 % (0-0.5); Lymphocytes Absolute Auto 1.26 K/mm3 (0.9-3.2); Lymphocytes Percent Auto 21.1 % (18.3-44.2); Mean Corpuscular HGB Conc 30.8 g/dl (32-36); Mean Corpuscular Hemoglobin 30.9 pg (26-34); Mean Corpuscular Volume 100.4 fl (80-100); Mean Platelet Volume 9.8 fl (7.4-10.4); Monocytes Absolute Auto 0.4 K/mm3 (0.1-0.6); Monocytes Percent Auto 6.2 % (2.6-8.5); Neutrophils Absolute Auto 4.1 K/mm3 (1.3-6.7); Neutrophils Percent Auto 68.4 % (45.5-73.1); Nucleated Red Blood Cells Perc 0.7 % (0.0-0.2); Platelet Count Result 235 k/mm3 (150-375); Red Blood Count 2.65 M/mm3 (4.2-5.4); Red Cell Distribution Width 15.6 % (11.5-14.5)
[2024-10-18 06:43] LABS: Alanine Aminotransferase 10 U/L (6-35); Alkaline Phosphatase 73 U/L (38-126); Anion Gap 7 mmol/L (4-12); Aspartate Amino Transferase 20 U/L (14-36); Bilirubin,Total 0.3 mg/dL (0.2-1.3); Blood Urea Nitrogen 13 mg/dL (7-17); Calcium 8.9 mg/dL (8.4-10.2); Carbon Dioxide 21 mmol/L (22-30); Chloride 107 mmol/L (98-107); Estimated CRCL calculation 39 ml/min; Estimated Glomerular Filt Rate > 60; Glucose 90 mg/dL (65-110); Magnesium 2.3 mg/dL (1.6-2.3); Potassium 4.2 mmol/L (3.4-5.0); Sodium 135 mmol/L (137-145); Total Protein 5.4 g/dL (6.3-8.2)
[2024-10-18 07:00] VITALS: BP 154/60; PULSE 65; RESP 18; TEMP 36.9; O2SAT 96
--- NOTE | 2024-10-18 08:45 | PC.NURSE ---
pt is refusing breakfast and PO intake at this time, was reluctant with therapy also but did minimal work out, states she does not want her medications at this time
--- NOTE | 2024-10-18 11:05 | PC.NURSE ---
pt is now agreeable to eating a jello and trying a cathryn cracker, she will take medications with this small snack
[2024-10-18] MEDS: MAGNESIUM OXIDE 400 MG TABLET PO (11:13)
[2024-10-18] MEDS: dilTIAZem HCL CD 120 MG CAP.24HR PO (11:13)
[2024-10-18] MEDS: polyethylene glycoL 3350 17 GM POWD.PACK PO (11:13)
[2024-10-18] MEDS: SENNA/DOCUSATE SODIUM TABLET 1 TAB PO (11:14)
[2024-10-18] MEDS: DULoxetine HCL 60 MG CAPSULE.DR PO (11:14)
[2024-10-18] MEDS: lamoTRIgine 100 MG TABLET PO (11:14)
[2024-10-18] MEDS: levETIRAcetam 250 MG TABLET PO ×2 (11:14→21:24)
[2024-10-18] MEDS: CYANOCOBALAMIN 1,000 MCG TABLET 1000 MCG PO (11:14)
[2024-10-18] MEDS: THERAPEUTIC MULTIVITAMINS/MINERALS TAB (*BKC) 1 TABLET PO (11:14)
[2024-10-18] MEDS: MIRABEGRON 25 MG ER TABLET PO (11:14)
[2024-10-18] MEDS: PANTOPRAZOLE 40 MG TABLET PO (11:14)
[2024-10-18] MEDS: FLUTICASONE PROPIONATE 0.05% NA SPR 16 GM BTL (*BKC) 2 SPRAY NASAL (11:15)
--- NOTE | 2024-10-18 11:25 | PCOTNOTE ---
Attempted to see Patient at this time, Patient in bed. Patient states she already did something today, leave me alone. Patient encouraged to participate, discussed the importance of self care/movement. Patient states, leave me alone, yelling. Patient refuses all activity.
[2024-10-18 14:00] VITALS: BP 138/48; PULSE 78; RESP 17; TEMP 36.6; O2SAT 95
--- NOTE | 2024-10-18 14:14 | P.PNIM_ITS ---
Progress Note: A&P Assessment and Plan (1) Acute gastric ulcer: Code(s): K25.3 - Acute gastric ulcer without hemorrhage or perforation Status: Acute Assessment and Plan: Patient with n/v and dry coffee ground around mouth and on cheek on 10/12/2024. Eliquis stopped. PPI started. GI consulted and EGD done 10/12/24 showing a large hiatal hernia without obstruction and a single cratered acute benign ulcer measuring 12 mm was visualized in the fundus in the proximal part of the hiatal hernia. There is no visible vessel of active bleeding. The stomach at the body, cardia and fundus was normal with no ulcers or masses. The bulb and second portion of duodenum was normal with no ulcers or masses. Coffee grounds noted in body of stomach. Stool guaiac positive. Full liquid diet that was advanced to heart healthy diet. Hgb low but stable in the 7-8 range PT/OT. Changed to oral PPI. Monitor HH (2) Fecal impaction: Code(s): K56.41 - Fecal impaction Status: Acute Assessment and Plan: Patient had n/v at the care home likely due to fecal impaction. Her fall is likely secondary to vasovagal event. Patient received Colace enema after arriving to the medical floor and subsequently went unresponsive while on the commode and had large amount of hard stool output followed by looser stool. Patient did have transient bradycardia with the event but vitals and blood pressure returned to normal. Mental status returned to normal shortly thereafter. Miralax and Senakot added KUB 10/15 showing fecal impaction of the colon and rectum. Docusate sod/senna increased to 1 tab PO BID and Bisacodyl 10 NC x 1. Miralax advanced and enema given. No stool output documented today or yesterday; last BM wsa 10/15 Advance Miralax again and repeat SS enema. Monitor stool output. (3) Anorexia: Code(s): R63.0 - Anorexia Status: Acute Assessment and Plan: Patient is not eating much here mostly anywhere from 10-50%. She did eat well on 10/15 at 100%. Discussed with branch account executive. Supplements ordered and encouraged. (4) Nausea & vomiting: Qualifiers: Vomiting type: unspecified Qualified Code(s): R11.2 - Nausea with vomiting, unspecified Code(s): R11.2 - Nausea with vomiting, unspecified Status: Acute Assessment and Plan: No further events. Patient has Prochlorperazine 10 mg IV q 6 available PRN. (5) Vasovagal syncope: Code(s): R55 - Syncope and collapse Status: Acute Assessment and Plan: As above. Syncope likely secondary to vasovagal event with passing large amount of hard stool. Mental status returned to normal shortly thereafter. Brain MRI showing no acute findings. Patient did have transient bradycardia with the event but vitals and blood pressure returned to normal. Not on tele at the time. 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 EKG repeated 10/17 for her complaint of CP but no change from prior. [place] her chest pain is related to chest wall pain. Tele reviewed and showing no acute findings. PT/OT. Okay to stop tele (6) Iron deficiency anemia: Qualifiers: Iron deficiency anemia type: chronic blood loss Qualified Code(s): D50.0 - Iron deficiency anemia secondary to blood loss (chronic) Code(s): D50.9 - Iron deficiency anemia, unspecified Status: Acute Assessment and Plan: Patient with acute blood loss anemia and underlying iron deficiency. Baseline Hgb 9-10 range. Iron sat 8% in August but better here at 28% but ferritin still low at 18. Hgb 8.7 on admission but dropped to 5.9 and she was transfused 2 units of PRBC's on 10/12 Hgb climbed to the 7-8 range and stable. Monitor hgb and transfuse to a stable hgb (7) Paroxysmal atrial fibrillation: Code(s): I48.0 - Paroxysmal atrial fibrillation Status: Chronic Assessment and Plan: EKG showing sinus mechanism Eliquis stopped due to ulcer and drop in blood counts. Continue Diltiazem. Also on Norvasc but will stop since these are both calcium channel blockers. (8) Leukocytosis: Code(s): D72.829 - Elevated white blood cell count, unspecified Status: Acute Assessment and Plan: WBC elevated to 16K on admission. UA normal. BCx no growth to date. CXR negative. Probably stress response. WBC normalized Follow CBC (9) B12 deficiency: Code(s): E53.8 - Deficiency of other specified B group vitamins Status: Acute Assessment and Plan: B12 level 234. Cyanocobalamin 1,000 mcg IM weekly x 4 weeks. Added oral B12. Plan DVT Prophylaxis - SCD Code status - DNR Time Spent With Patient Time: 59 minutes Subjective Date/time seen: 10/18/24 14:14 Interval history: 83yo female with pAFib, schizoaffective d/o, dementia and seizures here for ground level fall. Ate well this afternoon. Having BM's. Blood count and blood pressure stable Likely discharge in AM Review of Systems Review of Systems: Unobtainable due to dementia. All systems reviewed & are unremarkable except as noted in HPI and below ROS unobtainable: Yes unobtainable due to mental status Exam Narrative: General - Awake and alert. No acute distress. Sitting in a chair Eyes - PERRLA, EOM intact ENT - No thrush, No erythema Neck - No noticeable or palpable swelling Lymph Nodes - No lymphadenopathy Cardiovascular - RRR no m/r/g, no JVD Lungs: Clear to auscultation, No wheezing, use of accessory muscles, no crackles Skin - Skin warm and dry, no wounds or rashes Abdomen - Normal bowel sounds, abdomen soft and minimal discomfort to low abdomen to palpation Extremities - No edema, cyanosis or clubbing Musculoskeletal - 5/5 strength, normal range of motion, no swollen or erythemato us joints. Neurological ? Alert and oriented x 1, CN 2-12 grossly intact. Psych: Normal mood and affect, pleasantly confused Const: General: no acute distress and uncomfortable Other: Well-developed, well-nourished, elderly, chronically ill-appearing HENMT: Other: Mucous membranes are dry, no oral pharyngeal erythema, head is normocephalic atraumatic Eyes: Other: Pupils are equal and reactive, positive conjunctival pallor, no scleral icterus Neck: Other: No JVD, no lymphadenopathy Resp: Effort & Inspection: normal respiratory effort Auscultation: clear to auscultation bilaterally Other: Clear to auscultation bilaterally, no increased work of breathing Cardio: Rate: regular rate and tachycardic Rhythm: regular rhythm and abnormal rhythm irregularly irregular (Atrial fib 93. ) Other: Telemetry- SR 70. GI: Auscultation: normal bowel sounds Other: semi firm, no tenderness, hypoactive bowel sounds. : Other: Incontinent of urine with pure wick in place, during rapid response patient was incontinent of stool Skin: Other: Generalized pallor, non jaundice, cool to touch, 3-4 second cap refill Neuro: Speech: normal speech Other: Patient is alert oriented to self, speech is clear and answers direct questions and speech is intermittently slurred, sensation is intact all extremities, no obvious facial asymmetry, moves all extremities equally Extrem: General: no pedal edema Other: Head CT negative. Psych: Mental Status: mental status grossly normal Affect: normal affect Other: oriented to person and hospital. Objective Data Vital Signs Vital Signs: Vital Signs - 24 hr 10/17/24 16:00 10/17/24 20:28 10/18/24 07:00 Temperature 97.4 F L 98.4 F Pulse Rate 73 73 65 Respiratory Rate 16 18 Blood Pressure 151/65 H 154/60 H Pulse Oximetry 94 96 Oxygen Delivery 10/18/24 08:45 Temperature Pulse Rate Respiratory Rate Blood Pressure Pulse Oximetry Oxygen Delivery Room Air Intake/Output Intake/Output: Intake & Output 10/15/24 10/16/24 10/17/24 10/18/24 23:59 23:59 23:59 23:59 Intake Total 1840 1000 680 340 Output Total 800 1600 2004 350 Balance 1040 -600 -1324 -10 Meds/Results Medications: Active Medications Generic Name Dose Route Start Last Admin Trade Name Mayte PRN Reason Stop Dose Admin Acetaminophen 650 mg 10/11/24 20:25 10/17/24 12:32 Acetaminophen 325 Mg Tablet PO 650 mg Q4H PRN Administration Pain 1-3 or fever Bisacodyl 10 mg 10/12/24 15:11 Bisacodyl 10 Mg Suppository RECTAL DAILY PRN Constipation Cyanocobalamin 1,000 mcg 10/12/24 20:30 10/12/24 21:19 Cyanocobalamin Inj 1,000 Mcg/Ml Vial IM 11/02/24 09:01 1,000 mcg WEEKLY ALEXIS Administration Cyanocobalamin 1,000 mcg 10/17/24 09:00 10/18/24 11:14 Cyanocobalamin 1,000 Mcg Tablet PO 1,000 mcg QAM ALEXIS Administration Diltiazem HCl 120 mg 10/12/24 09:00 10/18/24 11:13 Diltiazem Hcl Cd 120 Mg Cap.24hr PO 120 mg DAILY ALEXIS Administration Donepezil HCl 10 mg 10/11/24 21:00 10/17/24 20:22 Donepezil Hcl 10 Mg Tablet PO 10 mg HS ALEXIS Administration Duloxetine HCl 60 mg 10/12/24 09:00 10/18/24 11:14 Duloxetine Hcl 60 Mg Capsule.Dr PO 60 mg DAILY ALEXIS Administration Fluticasone Propionate 2 spray 10/12/24 09:00 10/18/24 11:15 Fluticasone Propionate 0.05% Na Spr 16 Gm Btl (*Bkc) NASAL 2 spray DAILY ALEXIS Administration Lamotrigine 100 mg 10/12/24 09:00 10/18/24 11:14 Lamotrigine 100 Mg Tablet PO 100 mg DAILY ALEXIS Administration Levetiracetam 250 mg 10/11/24 21:00 10/18/24 11:14 Levetiracetam 250 Mg Tablet PO 250 mg Q12HR ALEXIS Administration Lorazepam 0.5 mg 10/12/24 20:26 10/14/24 13:31 Lorazepam (*Crx) 0.5 Mg Tablet PO 0.5 mg TID PRN Administration Anxiety Magnesium Oxide 400 mg 10/12/24 09:00 10/18/24 11:13 Magnesium Oxide 400 Mg Tablet PO 400 mg DAILY ALEXIS Administration Melatonin 3 mg 10/11/24 21:00 10/17/24 20:22 Melatonin 3 Mg Tablet PO 3 mg HS ALEXIS Administration Mirabegron 25 mg 10/12/24 09:00 10/18/24 11:14 Mirabegron 25 Mg Er Tablet PO 25 mg DAILY ALEXIS Administration Multivitamins/Calcium 1 tablet 10/12/24 09:00 10/18/24 11:14 Therapeutic Multivitamins/Minerals Tab (*Bkc) PO 1 tablet DAILY ALEXIS Administration Pantoprazole Sodium 40 mg 10/17/24 09:00 10/18/24 11:14 Pantoprazole 40 Mg Tablet PO 40 mg QAM ALEXIS Administration Polyethylene Glycol 17 gm 10/17/24 13:10 10/18/24 13:30 Polyethylene Glycol 3350 17 Gm Powd.Pack PO Not Given TID ALEXIS Prochlorperazine Edisylate 10 mg 10/12/24 14:58 10/12/24 21:19 Prochlorperazine Edisylate 10 Mg/2 Ml Vial IV PUSH 10 mg Q6H PRN Administration Nausea And Vomiting Senna/Docusate Sodium 1 tab 10/15/24 17:00 10/18/24 11:14 Senna/Docusate Sodium Tablet PO 1 tab BID ALEXIS Administration Radiology Results: ITS Impressions Head/Neck CTA 10/11/24 15:07 IMPRESSION: 1. 40% stenosis of the right carotid bulb relative to normal distal artery lumen diameter (NASCET criteria). 2. 40% stenosis of the left carotid bulb relative to normal distal artery lumen diameter. 3. 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 4. 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 No acute intracranial process or abnormally enhancing brain lesions. 5. Cerebral CT angiogram demonstrates no hemodynamically significant stenosis, aneurysm or thrombosis. Of note the majority of flow to the posterior cerebral arteries appears to be supplied from the bilateral internal carotid arteries via patent bilateral posterior communicating arteries which are significantly larger than the diminutive bilateral P1 segments. Chest X-Ray 10/11/24 15:26 IMPRESSION: 1: NO ACUTE CARDIOPULMONARY DISEASE. Abdomen/Pelvis CT 10/11/24 15:34 IMPRESSION: Possible mild fecal impaction. No CT findings of stercoral colitis. Otherwise, no acute abdominopelvic process detected. Brain MRI 10/14/24 16:29 IMPRESSION: No acute intracranial process. Abdomen X-Ray 10/15/24 13:23 IMPRESSION: 1. Fecal impaction of the colon and rectum. No obstruction. Head CT 10/15/24 13:37 Impression: No intracranial hemorrhage, mass, or acute infarct. Atrophy and chronic white matter changes, as above. Labs Labs: Laboratory Results - last 24 hr 10/17/24 10/18/24 16:57 05:44 WBC 6.0 RBC 2.65 L Hgb 8.2 L Hct 26.6 L MCV 100.4 H MCH 30.9 MCHC 30.8 L RDW 15.6 H Plt Count 235 MPV 9.8 Immature Gran % (Auto) 0.7 H Neut % (Auto) 68.4 Lymph % (Auto) 21.1 [place] % (Auto) 6.2 Eos % (Auto) 3.3 Baso % (Auto) 0.3 Lymph # (Auto) 1.26 [place] # (Auto) 0.4 Eos # (Auto) 0.2 Baso # (Auto) 0.0 Abs Immat Gran (auto) 0.04 H Absolute Neuts (auto) 4.1 Absolute Nucleated RBC 0.040 H Nucleated RBC % 0.7 H Sodium 135 L Potassium 4.2 Chloride 107 Carbon Dioxide 21 L Anion Gap 7 BUN 13 Creatinine 0.88 Estim Creat Clear Calc 39 Estimated GFR > 60 Glucose 90 POC Capillary Glucose 111 H Calcium 8.9 Magnesium 2.3 Total Bilirubin 0.3 AST 20 ALT 10 Alkaline Phosphatase 73 Total Protein 5.4 L Albumin 3.0 L Quality VTE Prophylaxis VTE prophylaxis: mechanical ordered Hospitalist [facility] Advance Care Plan I have confirmed that the patient's Advanced Care Plan is present, code status is documented, or surrogate decision maker is listed in patient medical record.: Yes Medication Reconciliation I have utilized all available resources to obtain, update and review the patients current medications (includes all prescriptions, OTC, herbals, cannabis, and nutritional supplements).: Yes
[2024-10-18 21:20] VITALS: PULSE 72; RESP 16; O2SAT 96
[2024-10-18] MEDS: DONEPEZIL HCL 10 MG TABLET PO (21:24)
[2024-10-18] MEDS: MELATONIN 3 MG TABLET PO (21:24)
[2024-10-18 21:34] VITALS: BP 134/57; PULSE 72; RESP 16; TEMP 36.7; O2SAT 96
[2024-10-19 05:51] LABS: Basophils Percent Auto 0.2 % (0.2-1.2); Eosinophils Absolute Auto 0.1 K/mm3 (0-0.3); Eosinophils Percent Auto 2.2 % (0-4.4); Hematocrit 24.9 % (37.0-47.0); Hemoglobin 7.9 g/dL (12.0-15.0); Immature Granulocyte Absolute 0.04 K/mm3 (0.00-0.031); Immature Granulocyte Percent A 0.7 % (0-0.5); Lymphocytes Absolute Auto 1.04 K/mm3 (0.9-3.2); Lymphocytes Percent Auto 18.7 % (18.3-44.2); Mean Corpuscular HGB Conc 31.7 g/dl (32-36); Mean Corpuscular Volume 97.6 fl (80-100); Monocytes Absolute Auto 0.4 K/mm3 (0.1-0.6); Neutrophils Percent Auto 71.2 % (45.5-73.1); Nucleated Red Blood Cells Perc 0.5 % (0.0-0.2); Platelet Count Result 252 k/mm3 (150-375); Red Blood Count 2.55 M/mm3 (4.2-5.4); Red Cell Distribution Width 15.3 % (11.5-14.5); White Blood Count 5.6 K/mm3 (4.5-10.0)
[2024-10-19 06:17] LABS: Alanine Aminotransferase 12 U/L (6-35); Albumin Level 3.3 g/dL (3.5-5.1); Alkaline Phosphatase 71 U/L (38-126); Anion Gap 4 mmol/L (4-12); Aspartate Amino Transferase 21 U/L (14-36); Bilirubin,Total 0.3 mg/dL (0.2-1.3); Blood Urea Nitrogen 14 mg/dL (7-17); Calcium 8.8 mg/dL (8.4-10.2); Carbon Dioxide 27 mmol/L (22-30); Chloride 104 mmol/L (98-107); Estimated CRCL calculation 37 ml/min; Estimated Glomerular Filt Rate 58; Glucose 93 mg/dL (65-110); Magnesium 2.3 mg/dL (1.6-2.3); Potassium 3.9 mmol/L (3.4-5.0); Sodium 135 mmol/L (137-145)
[2024-10-19 07:00] VITALS: BP 145/56; PULSE 70; RESP 16; TEMP 36.7; O2SAT 98
--- NOTE | 2024-10-19 07:28 | P.PNIM_ITS ---
Progress Note: A&P Assessment and Plan (1) Acute gastric ulcer: Code(s): K25.3 - Acute gastric ulcer without hemorrhage or perforation Status: Acute Assessment and Plan: Patient with n/v and dry coffee ground around mouth and on cheek on 10/12/2024. Eliquis stopped. PPI started. GI consulted and EGD done 10/12/24 showing a large hiatal hernia without obstruction and a single cratered acute benign ulcer measuring 12 mm was visualized in the fundus in the proximal part of the hiatal hernia. There is no visible vessel of active bleeding. The stomach at the body, cardia and fundus was normal with no ulcers or masses. The bulb and second portion of duodenum was normal with no ulcers or masses. Coffee grounds noted in body of stomach. Stool guaiac positive. Full liquid diet that was advanced to heart healthy diet. Hgb low but stable in the 7-8 range Blood count trending down slightly PT/OT. Changed to oral PPI. Monitor HH (2) Fecal impaction: Code(s): K56.41 - Fecal impaction Status: Acute Assessment and Plan: Patient had n/v at the retirement likely due to fecal impaction. Her fall is likely secondary to vasovagal event. Patient received Colace enema after arriving to the medical floor and subsequently went unresponsive while on the c ommode and had large amount of hard stool output followed by looser stool. Patient did have transient bradycardia with the event but vitals and blood pressure returned to normal. Mental status returned to normal shortly thereafter. Miralax and Senakot added KUB 10/15 showing fecal impaction of the colon and rectum. Docusate sod/senna increased to 1 tab PO BID and Bisacodyl 10 CT x 1. Miralax advanced and enema given. No stool output documented today or yesterday; last BM wsa 10/15 Advance Miralax again and repeat SS enema. Monitor stool output. (3) Anorexia: Code(s): R63.0 - Anorexia Status: Acute Assessment and Plan: Patient is not eating much here mostly anywhere from 10-50%. She did eat well on 10/15 at 100%. 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 Supplements ordered and encouraged. (4) Nausea & vomiting: Qualifiers: Vomiting type: unspecified Qualified Code(s): R11.2 - Nausea with vomiting, unspecified Code(s): R11.2 - Nausea with vomiting, unspecified Status: Acute Assessment and Plan: No further events. Patient has Prochlorperazine 10 mg IV q 6 available PRN. (5) Vasovagal syncope: Code(s): R55 - Syncope and collapse Status: Acute Assessment and Plan: As above. Syncope likely secondary to vasovagal event with passing large amount of hard stool. Mental status returned to normal shortly thereafter. Brain MRI showing no acute findings. Patient did have transient bradycardia with the event but vitals and blood pressure returned to normal. Not on tele at the time. 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 EKG repeated 10/17 for her complaint of CP but no change from prior. [place] her chest pain is related to chest wall pain. Tele reviewed and showing no acute findings. PT/OT. Okay to stop tele (6) Iron deficiency anemia: Qualifiers: Iron deficiency anemia type: chronic blood loss Qualified Code(s): D50.0 - Iron deficiency anemia secondary to blood loss (chronic) Code(s): D50.9 - Iron deficiency anemia, unspecified Status: Acute Assessment and Plan: Patient with acute blood loss anemia and underlying iron deficiency. Baseline Hgb 9-10 range. Iron sat 8% in August but better here at 28% but ferritin still low at 18. Hgb 8.7 on admission but dropped to 5.9 and she was transfused 2 units of PRBC's on 10/12 Hgb climbed to the 7-8 range and stable. Monitor hgb and transfuse to a stable hgb (7) Paroxysmal atrial fibrillation: Code(s): I48.0 - Paroxysmal atrial fibrillation Status: Chronic Assessment and Plan: EKG showing sinus mechanism Eliquis stopped due to ulcer and drop in blood counts. Continue Diltiazem. Also on Norvasc but will stop since these are both calcium channel blockers. (8) Leukocytosis: Code(s): D72.829 - Elevated white blood cell count, unspecified Status: Acute Assessment and Plan: WBC elevated to 16K on admission. UA normal. BCx no growth to date. CXR negative. Probably stress response. WBC normalized Follow CBC (9) B12 deficiency: Code(s): E53.8 - Deficiency of other specified B group vitamins Status: Acute Assessment and Plan: B12 level 234. Cyanocobalamin 1,000 mcg IM weekly x 4 weeks. Added oral B12. (10) Altered mental status: Qualifiers: Altered mental status type: unspecified Qualified Code(s): R41.82 - Altered mental status, unspecified Code(s): R41.82 - Altered mental status, unspecified Status: Acute Assessment and Plan: More confused today. Spoke with her and likely related to delirium and underlying dementia. Was coughing during meal. Her worried about change and --Unfortunately, unable to anticoagulate due to GI bleeding, ulcer on EGD and has known AVM's. Discussed with her that she is high risk for stroke with hx of prior strokes and hx afib. Recent TTE notable for WMA's, LVEF 50-55%. Exam nonfocal. Recent head CT no acute findings 10/15. 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 Coughing during meal today. Not eating much UA negative 83yo female with pAFib, schizoaffective d/o, dementia and seizures here for ground level fall. BMx1 Review of Systems Review of Systems: Unobtainable due to dementia. All systems reviewed & are unremarkable except as noted in HPI and below ROS unobtainable: Yes unobtainable due to mental status Exam Narrative: General - Awake and alert. No acute distress. Sitting in a chair Eyes - PERRLA, EOM intact ENT - No thrush, No erythema Neck - No noticeable or palpable swelling Lymph Nodes - No lymphadenopathy Cardiovascular - RRR no m/r/g, no JVD Lungs: Clear to auscultation, No wheezing, use of accessory muscles, no crackles Skin - Skin warm and dry, no wounds or rashes Abdomen - Normal bowel sounds, abdomen soft and minimal discomfort to low abdomen to palpation Extremities - No edema, cyanosis or clubbing Musculoskeletal - 5/5 strength, normal range of motion, no swollen or erythematous joints. Neurological ? Alert and oriented x 0, CN 2-12 grossly intact. Minimally verbal Psych: Normal mood and affect, pleasantly confused Objective Data Vital Signs Vital Signs: Vital Signs - 24 hr 10/18/24 08:45 10/18/24 14:00 10/18/24 21:20 Temperature 98 F Pulse Rate 78 72 Respiratory Rate 17 16 Blood Pressure 138/48 L Pulse Oximetry 95 96 Oxygen Delivery Room Air Room Air Fraction of Inspired Oxygen 21 10/18/24 21:34 Temperature 98.1 F Pulse Rate 72 Respiratory Rate 16 Blood Pressure 134/57 L Pulse Oximetry 96 Oxygen Delivery Fraction of Inspired Oxygen Intake/Output Intake/Output: Intake & Output 10/16/24 10/17/24 10/18/24 10/19/24 23:59 23:59 23:59 23:59 Intake Total 1000 680 580 Output Total 1600 7780 436 Bouiizn -382 -8999 230 Meds/Results Medications: Active Medications Generic Name Dose Route Start Last Admin Trade Name Freq PRN Reason Stop Dose Admin Acetaminophen 650 mg 10/11/24 20:25 10/17/24 12:32 Acetaminophen 325 Mg Tablet PO 650 mg Q4H PRN Administration Pain 1-3 or fever Bisacodyl 10 mg 10/12/24 15:11 Bisacodyl 10 Mg Suppository RECTAL DAILY PRN Constipation Cyanocobalamin 1,000 mcg 10/12/24 20:30 10/12/24 21:19 Cyanocobalamin Inj 1,000 Mcg/Ml Vial IM 11/02/24 09:01 1,000 mcg WEEKLY ALEXIS Administration Cyanocobalamin 1,000 mcg 10/17/24 09:00 10/18/24 11:14 Cyanocobalamin 1,000 Mcg Tablet PO 1,000 mcg QAM ALEXIS Administration Diltiazem HCl 120 mg 10/12/24 09:00 10/18/24 11:13 Diltiazem Hcl Cd 120 Mg Cap.24hr PO 120 mg DAILY ALEXIS Administration Donepezil HCl 10 mg 10/11/24 21:00 10/18/24 21:24 Donepezil Hcl 10 Mg Tablet PO 10 mg HS ALEXIS Administration Duloxetine HCl 60 mg 10/12/24 09:00 10/18/24 11:14 Duloxetine Hcl 60 Mg Capsule.Dr PO 60 mg DAILY ALEXIS Administration Fluticasone Propionate 2 spray 10/12/24 09:00 10/18/24 11:15 Fluticasone Propionate 0.05% Na Spr 16 Gm Btl (*Bkc) NASAL 2 spray DAILY ALEXIS Administration Lamotrigine 100 mg 10/12/24 09:00 10/18/24 11:14 Lamotrigine 100 Mg Tablet PO 100 mg DAILY ALEXIS Administration Levetiracetam 250 mg 10/11/24 21:00 10/18/24 21:24 Levetiracetam 250 Mg Tablet PO 250 mg Q12HR ALEXIS Administration Lorazepam 0.5 mg 10/12/24 20:26 10/14/24 13:31 Lorazepam (*Crx) 0.5 Mg Tablet PO 0.5 mg TID PRN Administration Anxiety Magnesium Oxide 400 mg 10/12/24 09:00 10/18/24 11:13 Magnesium Oxide 400 Mg Tablet PO 400 mg DAILY ALEXIS Administration Melatonin 3 mg 10/11/24 21:00 10/18/24 21:24 Melatonin 3 Mg Tablet PO 3 mg HS ALEXIS Administration Mirabegron 25 mg 10/12/24 09:00 10/18/24 11:14 Mirabegron 25 Mg Er Tablet PO 25 mg DAILY ALEXIS Administration Multivitamins/Calcium 1 tablet 10/12/24 09:00 10/18/24 11:14 Therapeutic Multivitamins/Minerals Tab (*Bkc) PO 1 tablet DAILY ALEXIS Administration Pantoprazole Sodium 40 mg 10/17/24 09:00 10/18/24 11:14 Pantoprazole 40 Mg Tablet PO 40 mg QAM ALEXIS Administration Polyethylene Glycol 17 gm 10/17/24 13:10 10/18/24 17:30 Polyethylene Glycol 3350 17 Gm Powd.Pack PO Not Given TID ALEXIS Prochlorperazine Edisylate 10 mg 10/12/24 14:58 10/12/24 21:19 Prochlorperazine Edisylate 10 Mg/2 Ml Vial IV PUSH 10 mg Q6H PRN Administration Nausea And Vomiting Senna/Docusate Sodium 1 tab 10/15/24 17:00 10/18/24 17:30 Senna/Docusate Sodium Tablet PO Not Given BID [facility] Radiology Results: ITS Impressions Head/Neck CTA 10/11/24 15:07 IMPRESSION: 1. 40% stenosis of the right carotid bulb relative to normal distal artery lumen diameter (NASCET criteria). 2. 40% stenosis of the left carotid bulb relative to normal distal artery lumen diameter. 3. 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 4. 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 No acute intracranial process or abnormally enhancing brain lesions. 5. Cerebral CT angiogram demonstrates no hemodynamically significant stenosis, aneurysm or thrombosis. Of note the majority of flow to the posterior cerebral arteries appears to be supplied from the bilateral internal carotid arteries via patent bilateral posterior communicating arteries which are significantly larger than the diminutive bilateral P1 segments. Chest X-Ray 10/11/24 15:26 IMPRESSION: 1: NO ACUTE CARDIOPULMONARY DISEASE. Abdomen/Pelvis CT 10/11/24 15:34 IMPRESSION: Possible mild fecal impaction. No CT findings of stercoral colitis. Otherwise, no acute abdominopelvic process detected. Brain MRI 10/14/24 16:29 IMPRESSION: No acute intracranial process. Abdomen X-Ray 10/15/24 13:23 IMPRESSION: 1. Fecal impaction of the colon and rectum. No obstruction. Head CT 10/15/24 13:37 Impression: No intracranial hemorrhage, mass, or acute infarct. Atrophy and chronic white matter changes, as above. Labs Labs: Laboratory Results - last 24 hr 10/19/24 05:35 WBC 5.6 RBC 2.55 L Hgb 7.9 L Hct 24.9 L MCV 97.6 MCH 31.0 MCHC 31.7 L RDW 15.3 H Plt Count 252 MPV 10.0 Immature Gran % (Auto) 0.7 H Neut % (Auto) 71.2 Lymph % (Auto) 18.7 [place] % (Auto) 7.0 Eos % (Auto) 2.2 Baso % (Auto) 0.2 Lymph # (Auto) 1.04 [place] # (Auto) 0.4 Eos # (Auto) 0.1 Baso # (Auto) 0.0 Abs Immat Gran (auto) 0.04 H Absolute Neuts (auto) 4.0 Absolute Nucleated RBC 0.030 H Nucleated RBC % 0.5 H Sodium 135 L Potassium 3.9 Chloride 104 Carbon Dioxide 27 Anion Gap 4 BUN 14 Creatinine 0.92 Estim Creat Clear Calc 37 Estimated GFR 58 L Glucose 93 Calcium 8.8 Magnesium 2.3 Total Bilirubin 0.3 AST 21 ALT 12 Alkaline Phosphatase 71 Total Protein 6.0 L Albumin 3.3 L Quality VTE Prophylaxis VTE prophylaxis: mechanical ordered Hospitalist [facility] Advance Care Plan I have confirmed that the patient's Advanced Care Plan is present, code status is documented, or surrogate decision maker is listed in patient medical record.: Yes Medication Reconciliation I have utilized all available resources to obtain, update and review the patients current medications (includes all prescriptions, OTC, herbals, cannabis, and nutritional supplements).: Yes
[2024-10-19] MEDS: MIRABEGRON 25 MG ER TABLET PO (08:31)
[2024-10-19] MEDS: PANTOPRAZOLE 40 MG TABLET PO (08:31)
[2024-10-19] MEDS: lamoTRIgine 100 MG TABLET PO (08:32)
[2024-10-19] MEDS: levETIRAcetam 250 MG TABLET PO ×2 (08:32→22:21)
[2024-10-19] MEDS: MAGNESIUM OXIDE 400 MG TABLET PO (08:32)
[2024-10-19] MEDS: THERAPEUTIC MULTIVITAMINS/MINERALS TAB (*BKC) 1 TABLET PO (08:32)
[2024-10-19] MEDS: CYANOCOBALAMIN 1,000 MCG TABLET 1000 MCG PO (08:32)
[2024-10-19] MEDS: dilTIAZem HCL CD 120 MG CAP.24HR PO (08:32)
[2024-10-19] MEDS: DULoxetine HCL 60 MG CAPSULE.DR PO (08:32)
[2024-10-19] MEDS: CYANOCOBALAMIN INJ 1,000 MCG/ML VIAL 1000 MCG IM (08:33)
[2024-10-19] MEDS: FLUTICASONE PROPIONATE 0.05% NA SPR 16 GM BTL (*BKC) 2 SPRAY NASAL (08:33)
[2024-10-19 13:49] VITALS: BP 123/45; PULSE 72; RESP 18; TEMP 36.8; O2SAT 94
[2024-10-19 19:33] LABS: Add Urine Microscopic? YES; Appearance Urine Cloudy (Clear); Bacteria Urine None Seen /hpf; Bilirubin Urine Negative (Negative); Blood Urine Negative (Negative); Color Urine Yellow (Yellow); Glucose Urine UA Negative (Negative); Ketones Urine Negative (Negative); Leukocyte Esterase Ur Negative LEU/UL (Negative); Nitrate Urine Negative (Negative); Non Pathogenic Casts 0-2; Protein Urine Negative (Negative); RBC Urine 0-2 /hpf (0-2); Specific Grav Ur 1.016 (1.001-1.035); Squamous Epithelial Cell Urine None Seen /hpf (Few); WBC Urine 0-5 /hpf (0-3)
[2024-10-19 19:51] VITALS: BP 138/49; PULSE 66; RESP 17; TEMP 36.6; O2SAT 95
[2024-10-19 21:00] VITALS: O2SAT 94
[2024-10-19] MEDS: DONEPEZIL HCL 10 MG TABLET PO (22:21)
[2024-10-19] MEDS: MELATONIN 3 MG TABLET PO (22:21)
[2024-10-20 04:30] VITALS: BP 140/51; PULSE 59; RESP 16; TEMP 36.8; O2SAT 96
[2024-10-20 05:15] LABS: Basophils Percent Auto 0.2 % (0.2-1.2); Eosinophils Absolute Auto 0.2 K/mm3 (0-0.3); Eosinophils Percent Auto 2.6 % (0-4.4); Hematocrit 27.7 % (37.0-47.0); Hemoglobin 8.5 g/dL (12.0-15.0); Immature Granulocyte Absolute 0.02 K/mm3 (0.00-0.031); Immature Granulocyte Percent A 0.3 % (0-0.5); Lymphocytes Percent Auto 18.8 % (18.3-44.2); Mean Corpuscular HGB Conc 30.7 g/dl (32-36); Mean Corpuscular Hemoglobin 30.5 pg (26-34); Mean Corpuscular Volume 99.3 fl (80-100); Mean Platelet Volume 9.6 fl (7.4-10.4); Monocytes Absolute Auto 0.4 K/mm3 (0.1-0.6); Monocytes Percent Auto 6.3 % (2.6-8.5); Neutrophils Absolute Auto 4.2 K/mm3 (1.3-6.7); Neutrophils Percent Auto 71.8 % (45.5-73.1); Nucleated Red Blood Cells Perc 0.3 % (0.0-0.2); Platelet Count Result 307 k/mm3 (150-375); Red Blood Count 2.79 M/mm3 (4.2-5.4); Red Cell Distribution Width 15.2 % (11.5-14.5); White Blood Count 5.9 K/mm3 (4.5-10.0)
[2024-10-20 05:35] LABS: Alanine Aminotransferase 16 U/L (6-35); Albumin Level 3.5 g/dL (3.5-5.1); Alkaline Phosphatase 75 U/L (38-126); Anion Gap 7 mmol/L (4-12); Aspartate Amino Transferase 32 U/L (14-36); Bilirubin,Total 0.4 mg/dL (0.2-1.3); Blood Urea Nitrogen 13 mg/dL (7-17); Calcium 8.9 mg/dL (8.4-10.2); Carbon Dioxide 24 mmol/L (22-30); Chloride 105 mmol/L (98-107); Estimated CRCL calculation 35 ml/min; Estimated Glomerular Filt Rate 54; Glucose 90 mg/dL (65-110); Magnesium 2.4 mg/dL (1.6-2.3); Potassium 4.1 mmol/L (3.4-5.0); Sodium 136 mmol/L (137-145); Total Protein 6.4 g/dL (6.3-8.2)
--- NOTE | 2024-10-20 08:02 | PM.IMPN ---
Progress Note: A&P Assessment and Plan (1) Acute gastric ulcer: Code(s): K25.3 - Acute gastric ulcer without hemorrhage or perforation Status: Acute Assessment and Plan: Patient with n/v and dry coffee ground around mouth and on cheek on 10/12/2024. Has had prior admissions for GI bleeding and known AVM's EGD done 10/12/24 showing a large hiatal hernia without obstruction and a single cratered acute benign ulcer measuring 12 mm was visualized in the fundus in the proximal part of the hiatal hernia. There is no visible vessel of active bleeding. The stomach at the body, cardia and fundus was normal with no ulcers or masses. The bulb and second portion of duodenum was normal with no ulcers or masses. Coffee grounds noted in body of stomach. Labs Stool guaiac positive. Hgb low but stable in the 7-8 range PLAN Full liquid diet that was advanced to heart healthy diet but not eating --Eliquis stopped. PPI started, changed from IV to PO --GI consulted, appreciate recommendations --Blood count stable the last few days --PT/OT. --Continue to follow CBC (2) Fecal impaction: Code(s): K56.41 - Fecal impaction Status: Acute Assessment and Plan: Patient had n/v at the residential likely due to fecal impaction. Her fall is likely secondary to vasovagal event and in the setting of acute blood loss. Patient received Colace enema after arriving to the medical floor and subsequently went unresponsive while on the commode and had large amount of hard stool output followed by looser stool. Patient did have transient bradycardia with the event but vitals and blood pressure returned to normal. Mental status returned to normal shortly thereafter. KUB 10/15 showing fecal impaction of the colon and rectum. PLAN Monitor for constipation--4 BM's 10/19 --Continue Miralax TID>BID, Senna BID --Bisacodyl prn (3) Anorexia: Code(s): R63.0 - Anorexia Status: Acute Assessment and Plan: Patient is not eating much here mostly anywhere from 10-50%. She did eat well on 10/15 at 100%. --Block Hacker following --Supplements ordered and encouraged. --Monitor intake, eating minimally. Drinking some supplements --Calorie count --Evaluating swallowing, coughing frequently (4) Nausea & vomiting: Qualifiers: Vomiting type: unspecified Qualified Code(s): R11.2 - Nausea with vomiting, unspecified Code(s): R11.2 - Nausea with vomiting, unspecified Status: Acute Assessment and Plan: No further events. Patient has Prochlorperazine 10 mg IV q 6 available PRN. (5) Vasovagal syncope: Code(s): R55 - Syncope and collapse Status: Acute Assessment and Plan: As above. Syncope likely secondary to vasovagal event with passing large amount of hard stool. Mental status returned to normal shortly thereafter. Brain MRI showing no acute findings. Patient did have transient bradycardia with the event but vitals and blood pressure returned to normal. Not on tele at the time. 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 EKG repeated 10/17 for her complaint of CP but no change from prior. [place] her chest pain is related to chest wall pain. EKG 10/20 NSR, LBBB. Troponin negative, BNP slightly elevated, 335 Tele reviewed and showing no acute findings. Stopped tele (6) Iron deficiency anemia: Qualifiers: Iron deficiency anemia type: chronic blood loss Qualified Code(s): D50.0 - Iron deficiency anemia secondary to blood loss (chronic) Code(s): D50.9 - Iron deficiency anemia, unspecified Status: Acute Assessment and Plan: Patient with acute blood loss anemia and underlying iron deficiency. Baseline Hgb 9-10 range. Iron sat 8% in August but better here at 28% but ferritin still low at 18. Hgb 8.7 on admission but dropped to 5.9 and she was transfused 2 units of PRBC's on 10/12 Hgb 7-8 range and stable. --Monitor hgb and transfuse to a stable hgb (7) Paroxysmal atrial fibrillation: Code(s): I48.0 - Paroxysmal atrial fibrillation Status: Chronic Assessment and Plan: EKG showing sinus mechanism --Continue to hold Eliquis, stopped due to ulcer and drop in blood counts. --Could consider restarting a low dose aspirin at some point --Continue Diltiazem. Also on Norvasc but stopped since these are both calcium channel blockers. (8) Leukocytosis: Code(s): D72.829 - Elevated white blood cell count, unspecified Status: Acute Assessment and Plan: Concern for intermittent aspiration . Lungs sound clear and x-rays have been normal. WBC elevated to 16K on admission, normalized. UA's no evidence of infection 10/11 or 10/19 10/12 BCx no growth CXR clear 10/11 & 10/20 --Following CBC (9) B12 deficiency: Code(s): E53.8 - Deficiency of other specified B group vitamins Status: Acute Assessment and Plan: B12 level 234. --Cyanocobalamin 1,000 mcg IM weekly x 4 weeks. --Added oral B12. (10) Altered mental status: Qualifiers: Altered mental status type: unspecified Qualified Code(s): R41.82 - Altered mental status, unspecified Code(s): R41.82 - Altered mental status, unspecified Status: Acute Assessment and Plan: More confused 10/20 & 10/21, though has had a fluctuating mental status intermittently. Discussed with her that likely related to delirium and underlying dementia. Was coughing during meal. Her concerned about change in mental status. Exam nonfocal. Recent head CT no acute findings 10/15. 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 She is chronically at higher risk for stroke of anticoagulation. Hx of prior strokes and hx afib. Recent TTE notable for WMA's, LVEF 50-55%. --No evidence of infection --If new focal changes, consider repeat imaging. (11) Cough after eating: Code(s): R05.8 - Other specified cough Status: Acute Assessment and Plan: Speech evaluated and coughing with food --MBS tomorrow --Calorie count given poor PO intake --Goals of care discussion pending swallow eval Plan DVT Prophylaxis - SCD Code status - DNR Time Spent With Patient Time: 58 minutes Subjective Date/time seen: 10/20/24 08:02 Interval history: Eating minimally. Coughing with meals. Still minimally participatory. Speech did a bedside swallow today and coughing when eating, chronic from history. Planning MBS tomorrow Exam nonfocal but aphasic. Sat on the side of the bed for a short time, appeared short of breath and put her hand to her left chest but unable to communicate Chest x-ray clear lungs, UA negative. No evidence of infection. Trop negative and WBC and labs unremarkable 83yo female with pAFib, schizoaffective d/o, dementia and seizures here for ground level fall. Failure to thrive. is involved in care and is at the bedside most days Review of Systems Review of Systems: Unobtainable due to dementia. All systems reviewed & are unremarkable except as noted in HPI and below ROS unobtainable: Yes unobtainable due to mental status Exam Narrative: General - Awake and alert. No acute distress, minimally communicates 2/2 aphasia. Eyes - PERRLA, EOM intact ENT - No thrush, No erythema Neck - No noticeable or palpable swelling Lymph Nodes - No lymphadenopathy Cardiovascular - RRR no m/r/g, no JVD Lungs: Clear to auscultation, No wheezing, use of accessory muscles, no crackles Skin - Skin warm and dry, no wounds or rashes Abdomen - Normal bowel sounds, abdomen soft and minimal discomfort to low abdomen to palpation Extremities - No edema, cyanosis or clubbing Musculoskeletal - 2/5 strength, normal range of motion, no swollen or erythematous joints. Neurological ? Alert and oriented x 0, CN 2-12 grossly intact. Minimally verbal, aphasic Psych: Normal mood and affect, pleasantly confused Objective Data Vital Signs Vital Signs: Vital Signs - 24 hr 10/19/24 13:49 10/19/24 19:51 10/19/24 21:00 Temperature 98.2 F 97.9 F Pulse Rate 72 66 Respiratory Rate 18 17 Blood Pressure 123/45 L 138/49 L Pulse Oximetry 94 95 94 Oxygen Delivery Room Air Fraction of Inspired Oxygen 10/20/24 04:30 Temperature 98.2 F Pulse Rate 59 L Respiratory Rate 16 Blood Pressure 140/51 L Pulse Oximetry 96 Oxygen Delivery Fraction of Inspired Oxygen Intake/Output Intake/Output: Intake & Output 10/17/24 10/18/24 10/19/24 10/20/24 23:59 23:59 23:59 23:59 Intake Total 349 580 870 250 Output Total 3389 350 100 400 Balance -1324 230 770 -150 Meds/Results Medications: Active Medications Generic Name Dose Route Start Last Admin Trade Name Freq PRN Reason Stop Dose Admin Acetaminophen 650 mg 10/11/24 20:25 10/17/24 12:32 Acetaminophen 325 Mg Tablet PO 650 mg Q4H PRN Administration Pain 1-3 or fever Bisacodyl 10 mg 10/12/24 15:11 Bisacodyl 10 Mg Suppository RECTAL DAILY PRN Constipation Cyanocobalamin 1,000 mcg 10/12/24 20:30 10/19/24 08:33 Cyanocobalamin Inj 1,000 Mcg/Ml Vial IM 11/02/24 09:01 1,000 mcg WEEKLY ALEXIS Administration Cyanocobalamin 1,000 mcg 10/17/24 09:00 10/19/24 08:32 Cyanocobalamin 1,000 Mcg Tablet PO 1,000 mcg QAM ALEXIS Administration Diltiazem HCl 120 mg 10/12/24 09:00 10/19/24 08:32 Diltiazem Hcl Cd 120 Mg Cap.24hr PO 120 mg DAILY ALEXIS Administration Donepezil HCl 10 mg 10/11/24 21:00 10/19/24 22:21 Donepezil Hcl 10 Mg Tablet PO 10 mg HS ALEXIS Administration Duloxetine HCl 60 mg 10/12/24 09:00 10/19/24 08:32 Duloxetine Hcl 60 Mg Capsule.Dr PO 60 mg DAILY ALEXIS Administration Fluticasone Propionate 2 spray 10/12/24 09:00 10/19/24 08:33 Fluticasone Propionate 0.05% Na Spr 16 Gm Btl (*Bkc) NASAL 2 spray DAILY ALEXIS Administration Lamotrigine 100 mg 10/12/24 09:00 10/19/24 08:32 Lamotrigine 100 Mg Tablet PO 100 mg DAILY ALEXIS Administration Levetiracetam 250 mg 10/11/24 21:00 10/19/24 22:21 Levetiracetam 250 Mg Tablet PO 250 mg Q12HR ALEXIS Administration Lorazepam 0.5 mg 10/12/24 20:26 10/14/24 13:31 Lorazepam (*Crx) 0.5 Mg Tablet PO 0.5 mg TID PRN Administration Anxiety Magnesium Oxide 400 mg 10/12/24 09:00 10/19/24 08:32 Magnesium Oxide 400 Mg Tablet PO 400 mg DAILY ALEXIS Administration Melatonin 3 mg 10/11/24 21:00 10/19/24 22:21 Melatonin 3 Mg Tablet PO 3 mg HS ALEXIS Administration Mirabegron 25 mg 10/12/24 09:00 10/19/24 08:31 Mirabegron 25 Mg Er Tablet PO 25 mg DAILY ALEXIS Administration Multivitamins/Calcium 1 tablet 10/12/24 09:00 10/19/24 08:32 Therapeutic Multivitamins/Minerals Tab (*Bkc) PO 1 tablet DAILY ALEXIS Administration Pantoprazole Sodium 40 mg 10/17/24 09:00 10/19/24 08:31 Pantoprazole 40 Mg Tablet PO 40 mg QAM ALEIXS Administration Polyethylene Glycol 17 gm 10/17/24 13:10 10/19/24 17:19 Polyethylene Glycol 3350 17 Gm Powd.Pack PO Not Given TID ALEXIS Prochlorperazine Edisylate 10 mg 10/12/24 14:58 10/12/24 21:19 Prochlorperazine Edisylate 10 Mg/2 Ml Vial IV PUSH 10 mg Q6H PRN Administration Nausea And Vomiting Senna/Docusate Sodium 1 tab 10/15/24 17:00 10/19/24 17:19 Senna/Docusate Sodium Tablet PO Not Given BID [facility] Radiology Results: ITS Impressions Head/Neck CTA 10/11/24 15:07 IMPRESSION: 1. 40% stenosis of the right carotid bulb relative to normal distal artery lumen diameter (NASCET criteria). 2. 40% stenosis of the left carotid bulb relative to normal distal artery lumen diameter. 3. 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 4. 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 No acute intracranial process or abnormally enhancing brain lesions. 5. Cerebral CT angiogram demonstrates no hemodynamically significant stenosis, aneurysm or thrombosis. Of note the majority of flow to the posterior cerebral arteries appears to be supplied from the bilateral internal carotid arteries via patent bilateral posterior communicating arteries which are significantly larger than the diminutive bilateral P1 segments. Abdomen/Pelvis CT 10/11/24 15:34 IMPRESSION: Possible mild fecal impaction. No CT findings of stercoral colitis. Otherwise, no acute abdominopelvic process detected. Brain MRI 10/14/24 16:29 IMPRESSION: No acute intracranial process. Abdomen X-Ray 10/15/24 13:23 IMPRESSION: 1. Fecal impaction of the colon and rectum. No obstruction. Head CT 10/15/24 13:37 Impression: No intracranial hemorrhage, mass, or acute infarct. Atrophy and chronic white matter changes, as above. Chest X-Ray 10/20/24 06:40 Impression: Clear lungs. Labs Labs: Laboratory Results - last 24 hr 10/19/24 10/20/24 18:32 05:04 WBC 5.9 RBC 2.79 L Hgb 8.5 L Hct 27.7 L MCV 99.3 MCH 30.5 MCHC 30.7 L RDW 15.2 H Plt Count 307 MPV 9.6 Immature Gran % (Auto) 0.3 Neut % (Auto) 71.8 Lymph % (Auto) 18.8 [place] % (Auto) 6.3 Eos % (Auto) 2.6 Baso % (Auto) 0.2 Lymph # (Auto) 1.10 [place] # (Auto) 0.4 Eos # (Auto) 0.2 Baso # (Auto) 0.0 Abs Immat Gran (auto) 0.02 Absolute Neuts (auto) 4.2 Absolute Nucleated RBC 0.020 H Nucleated RBC % 0.3 H Sodium 136 L Potassium 4.1 Chloride 105 Carbon Dioxide 24 Anion Gap 7 BUN 13 Creatinine 0.98 Estim Creat Clear Calc 35 Estimated GFR 54 L Glucose 90 Calcium 8.9 Magnesium 2.4 H Total Bilirubin 0.4 AST 32 ALT 16 Alkaline Phosphatase 75 Total Protein 6.4 Albumin 3.5 Urine Color Yellow Urine Appearance Cloudy H Urine pH 8.0 Ur Specific [place] 1.016 Urine Protein Negative Urine Glucose (UA) Negative Urine Ketones Negative Ur Blood (Man) Negative Urine Nitrate Negative Urine Bilirubin Negative Urine Urobilinogen 1.0 Leukocyte Esterase Rfl Negative Urine RBC 0-2 Urine WBC 0-5 Ur Squamous Epith Cells None seen Urine Bacteria None seen Urine Casts 0-2 Quality VTE Prophylaxis VTE prophylaxis: mechanical ordered Hospitalist [facility] Advance Care Plan I have confirmed that the patient's Advanced Care Plan is present, code status is documented, or surrogate decision maker is listed in patient medical record.: Yes Medication Reconciliation I have utilized all available resources to obtain, update and review the patients current medications (includes all prescriptions, OTC, herbals, cannabis, and nutritional supplements).: Yes
[2024-10-20 10:07] VITALS: PULSE 59; RESP 16; O2SAT 96
[2024-10-20] MEDS: PANTOPRAZOLE 40 MG TABLET PO (10:07)
[2024-10-20] MEDS: lamoTRIgine 100 MG TABLET PO (10:07)
[2024-10-20] MEDS: THERAPEUTIC MULTIVITAMINS/MINERALS TAB (*BKC) 1 TABLET PO (10:07)
[2024-10-20] MEDS: CYANOCOBALAMIN 1,000 MCG TABLET 1000 MCG PO (10:07)
[2024-10-20] MEDS: MIRABEGRON 25 MG ER TABLET PO (10:07)
[2024-10-20] MEDS: SENNA/DOCUSATE SODIUM TABLET 1 TAB PO ×2 (10:07→16:14)
[2024-10-20] MEDS: FLUTICASONE PROPIONATE 0.05% NA SPR 16 GM BTL (*BKC) 2 SPRAY NASAL (10:07)
[2024-10-20] MEDS: DULoxetine HCL 60 MG CAPSULE.DR PO (10:07)
[2024-10-20] MEDS: dilTIAZem HCL CD 120 MG CAP.24HR PO (10:07)
[2024-10-20] MEDS: MAGNESIUM OXIDE 400 MG TABLET PO (10:07)
[2024-10-20] MEDS: polyethylene glycoL 3350 17 GM POWD.PACK PO ×3 (10:08→16:14)
[2024-10-20] MEDS: levETIRAcetam 250 MG TABLET PO ×2 (10:08→20:03)
--- NOTE | 2024-10-20 10:23 | ECG_ITS ---
Test Date: 2024-10-20 11:37:42 Measurements Intervals [place] Rate: 72 P: 16 SD: 176 QRS: 6 QRSD: 134 T: 64 QT: 419 QTc: 461 Interpretive Statements SINUS RHYTHM LEFT BUNDLE BRANCH BLOCK BASELINE ARTIFACT- I, III ABNORMAL ECG Compared to ECG 10/16/2024 12:02:23 No significant changes Electronically Signed On 10-20-2024 17:17:36 CDT by Vladimir Sosa D.O.
[2024-10-20 11:06] LABS: NT Pro B Type Natriuretic Pept 335 pg/mL (19.9-100); Troponin I < 0.012 ng/mL (0.000-0.034)
[2024-10-20 15:00] VITALS: BP 128/45; PULSE 70; RESP 16; TEMP 36.3; O2SAT 95
--- NOTE | 2024-10-20 15:18 | PCSTNOTE ---
Please refer to the Bedside Swallow Evaluation in the EMR. Please note, silent aspiration cannot be ruled out at bedside.
[2024-10-20 19:47] VITALS: BP 163/53; PULSE 66; RESP 18; TEMP 36.6; O2SAT 94
[2024-10-20 20:00] VITALS: PULSE 66; RESP 18; O2SAT 94
[2024-10-20] MEDS: MELATONIN 3 MG TABLET PO (20:03)
[2024-10-20] MEDS: DONEPEZIL HCL 10 MG TABLET PO (20:03)
[2024-10-21 02:46] VITALS: BP 161/50; PULSE 65; RESP 18; TEMP 36.3; O2SAT 96
[2024-10-21 07:12] VITALS: O2SAT 94
[2024-10-21 09:31] VITALS: BP 150/63; PULSE 77; RESP 16; TEMP 36.4; O2SAT 96
[2024-10-21] MEDS: MIRABEGRON 25 MG ER TABLET PO (09:32)
[2024-10-21] MEDS: levETIRAcetam 250 MG TABLET PO ×2 (09:33→22:02)
[2024-10-21] MEDS: PANTOPRAZOLE 40 MG TABLET PO (09:33)
[2024-10-21] MEDS: lamoTRIgine 100 MG TABLET PO (09:33)
[2024-10-21] MEDS: DULoxetine HCL 60 MG CAPSULE.DR PO (09:33)
[2024-10-21] MEDS: CYANOCOBALAMIN 1,000 MCG TABLET 1000 MCG PO (09:33)
[2024-10-21] MEDS: MAGNESIUM OXIDE 400 MG TABLET PO (09:33)
[2024-10-21] MEDS: dilTIAZem HCL CD 120 MG CAP.24HR PO (09:33)
[2024-10-21] MEDS: SENNA/DOCUSATE SODIUM TABLET 1 TAB PO (09:33)
[2024-10-21] MEDS: THERAPEUTIC MULTIVITAMINS/MINERALS TAB (*BKC) 1 TABLET PO (09:33)
[2024-10-21 09:35] VITALS: PULSE 77; RESP 16; O2SAT 96
[2024-10-21] MEDS: polyethylene glycoL 3350 17 GM POWD.PACK PO (09:35)
[2024-10-21] MEDS: FLUTICASONE PROPIONATE 0.05% NA SPR 16 GM BTL (*BKC) 2 SPRAY NASAL (09:35)
--- NOTE | 2024-10-21 12:36 | P.DS_ITS ---
DS: Admitting Diagnosis Discharge Date 10/21/24 Admitting Diagnosis Ground level fall DS: Discharge Diagnosis Discharge Diagnosis (1) Acute gastric ulcer: Code(s): K25.3 - Acute gastric ulcer without hemorrhage or perforation Status: Acute (2) Fecal impaction: Code(s): K56.41 - Fecal impaction Status: Acute (3) Anemia: Code(s): D64.9 - Anemia, unspecified Status: Acute DS: Summary Hospital Course Hospital Course: 83-year-old female past medical history of dementia, essential hypertension, chronic constipation, diastolic heart failure, paroxysmal atrial fibrillation, seizure disorder, GERD and prior GI bleed due to AVM who presented to the ER via EMS from [facility] due to frightening the patient on the floor. custodial staff reported that they found the patient on the bathroom floor. Is unclear if she fell from the toilet her from a sta nding position. Patient has been having issues with constipation and had a small bowel movement earlier in the day that was hard. The patient was also reported to be having some abdominal pain and nausea and vomiting that had reportedly started on the . The patient's also reported that he felt the patient was slurring her words more than usual but he last saw her on the . However the patient had no other focal neurologic deficits noted in the ER. Patient has resided in a senior living for the last 8 years following a CVA and resultant deficits. At the time my evaluation the patient is alert oriented to self. She cannot name the hospital or tell me that date or year. She cannot state her age. She did grimace on palpation of her abdomen. But she is unable to report any other review of systems. Labs in the ER demonstrated normal white count in stable hemoglobin. Her creatinine was also stable but her BUN had doubled from baseline and UA was unremarkable. CTA of the head and neck demonstrated multiple areas of stenosis none of which were severe and old infarcts. CT of the abdomen pelvis demonstrated fecal impaction without evidence of stercoral colitis. On my review imaging the patient is seemed to have some possible liquid stool above area of fecal impaction. Patient reports to me that she feels like she needs to have a bowel movement. A Colace enema was ordered at the time of my evaluation. The patient received the enema shortly thereafter. The nursing staff place the patient on the bedside commode and when they came back into the room the patient was unresponsive. She was having diarrheal stools. Patient patient monitor was not picking up at the time of the event. When I arrived at the patient's bedside the patient was bradycardic with palpable pulse around 50. Patient had some perioral cyanosis but normal pulse ox at 100%. Her blood pressures on initial evaluation were in the 110s over 40'sand repeat blood pressures were 130s over 60 and repeat heart rate was back up in the 80s to 90s. GI was consulted and patient underwent EGD which showed gastric ulcer, noted that patient Eliquis should be held for 5 days, and continue Protonix indefinitely. Patient was managed for anemia and received 2 units Blood transfusion. likely from B12 deficiency patient was started on b12 injections, discharged on daily b12. f/u with PCP in 3-5 days. Isat 28%. Fecal impaction continue Miralax and Senna, PRN Dulcolax. Speech therapy was consulted and patient underwent and passed MBS, can continue PO intake as tolerated. GI recommended restarting Eliquis after 5 days of withholding. Eliquis restated accordingly. F/u with PCP in 3-5 days F/u with GI as instructed Time Spent with Patient Time attestation: Total time spent providing and/or coordinating discharge services: Discharge Plan Discharge Attending physician on discharge: Skye Garcia Discharging Clinician: Skye Garcia Anticipated Discharge Date/Time: 10/21/24 12:28 Patient Disposition: Home Activity: as tolerated Diet: as tolerated and regular Patient Instructions: Antibiotic Form, Apixaban (By mouth) Patient Language: Yemeni Stand Alone Forms: General Discharge Information Follow-up/Referrals: Maddy Kemp [Other] (F/u with PCP in 3-5 days ) Keshav See MD [Physician] - (F/u with GI as instructed ) Discharge Medications: New cyanocobalamin (vitamin B-12) [Vitamin B-12] 1,000 mcg Tablet 1,000 mcg PO QAM 30 Days Qty: 30 1RF Continued donepezil 10 mg Tablet 10 mg PO HS cholecalciferol (vitamin D3) 50,000 unit Tablet 50,000 unit PO WEEKLY Patient Comments: MONDAY Rx Instructions: Tuesdays polyethylene glycol 3350 [Miralax] 17 gram/dose Powder 17 g PO DAILY PRN (Reason: Constipation) Rx Instructions: As needed if no BM in 2 days melatonin 3 mg Tablet 3 mg PO HS levetiracetam [Keppra] 250 mg Tablet 250 mg PO BID duloxetine 60 mg Capsule,Delayed Release(Dr/Ec) 60 mg PO DAILY lamotrigine 100 mg tablet 100 mg PO DAILY fluticasone propionate [Allergy Relief (fluticasone)] 50 mcg/actuation [place],Suspension 2 spray INTRANASAL DAILY Rx Instructions: administer into each nostril mirabegron [Myrbetriq] 25 mg Tablet Extended Release 24 Hr 25 mg PO DAILY multivitamin with iron-mineral Tablet 1 tablet PO DAILY pantoprazole 40 mg Tablet,Delayed Release (Dr/Ec) 40 mg PO Q12H lorazepam 0.5 mg tablet 0.5 mg PO TID Qty: 1 0RF amlodipine 5 mg tablet 5 mg PO DAILY acetaminophen 325 mg Tablet 650 mg PO Q4H PRN (Reason: Pain (Scale Score 1-3)) Marisol-Tussin 100 mg/5 mL liquid 5 ml PO Q6H PRN (Reason: Congestion ) magnesium oxide 400 mg tablet 1 tablet PO DAILY sennosides-docusate sodium [Senna Plus] 8.6-50 mg Tablet 1 tab-cap PO DAILY Eliquis 5 mg Tablet 5 mg PO Q12HR Qty: 60 0RF diltiazem HCl 120 mg capsule,extended release 24hr 120 mg PO DAILY Qty: 30 0RF Date of admission: 10/12/24 14:30 Primary Care Provider: Maddy Kemp Admitting Provider: Wyatt Laguna Attending physician on admission: Alyssia Long Condition: Stable
--- NOTE | 2024-10-21 12:59 | PCNFU ---
Nutrition Follow-Up Complete: Inadequate Oral Intake a related to possible CVA as evidenced by limited oral intake reported. Meet estimated nutritional needs.- Not progressing with intakes. Continue same goal Goal: Pt current nutrition is Heart healthy diet, Ensure Enlive TID (350 kcal, 20 g protein), nutritional ice cream TID (270 kcal, 9 g protein). Nutrition recommendation: No new recommendations. Continue current nutrition care plan and orders. Agree with orders. Last recorded weight is 71.2 kg. Bowel Motility: +1 BM 10/20 Labs Reviewed: No labs today. Labs 10/20: 8.5, Hct 22.7, Na 136 Meds Noted: miralax, Keppra, Vit B12, Cymbalta, Ativan Skin: No skin issues Additional Notes: Intakes are very poor. Refused all meals yesterday and today. Pt is DNR. Continue current nutrition care plan and monitoring. Will continue to monitor weight, labs, skin, diet orders. meds every 3 days.
[2024-10-21 14:52] VITALS: BP 168/52; PULSE 71; RESP 17; TEMP 36.8; O2SAT 98
--- NOTE | 2024-10-21 16:39 | REHSTMBS ---
Assessment and note entered by Dulce Harden, LOGGING WORKER Modified Barium Swallow Evaluation Feeding Type Recommended Oral Liquid Consistency Thin (0) ST Clinical Summary The patient is an 83 year old female admitted secondary to abdominal pain with a history of GERD . Orders received from physician to r/o aspiration risk due to decreased PO intake. The patient was viewed in the lateral position with trials 5cc thin liquid barium, uncontrolled straw drinks of liquid barium, pudding mixed with barium paste, and cracker coated with barium paste. Oral Stage: All oral preparation was completed in a timely manner for all consistencies without viewed residual. Pharyngeal Stage: Swallow initiation was viewed to be timely across consistencies without noted aspiration, penetration or residual in the vallecula or pyriform sinus. Recommend Regular diet Level 7 and Thin liquid Level 0.
--- NOTE | 2024-10-21 16:44 | PCSTNOTE ---
Please refer to the Modified Barium Swallow Evaluation in the EMR. The patient is an 83 year old female admitted secondary to abdominal pain with a history of GERD. Orders received from physician to r/o aspiration risk due to decreased PO intake. The patient was viewed in the lateral position with trials 5cc thin liquid barium, uncontrolled straw drinks of liquid barium, pudding mixed with barium paste, and cracker coated with barium paste. Oral Stage: All oral preparation was completed in a timely manner for all consistencies without viewed residual. Pharyngeal Stage: Swallow initiation was viewed to be timely across consistencies without noted aspiration, penetration or residual in the vallecula or pyriform sinus. Recommend Regular diet Level 7 and Thin liquid Level 0.
[2024-10-21 21:50] VITALS: BP 146/46; PULSE 61; RESP 16; TEMP 36.4; O2SAT 98
[2024-10-21] MEDS: DONEPEZIL HCL 10 MG TABLET PO (22:01)
[2024-10-21] MEDS: MELATONIN 3 MG TABLET PO (22:02)
[2024-10-22 06:00] VITALS: BP 134/48; PULSE 72; RESP 20; TEMP 36.2; O2SAT 97
[2024-10-22 13:00] LABS: Glucose Point of Care 105 mg/dl (65-105)
[2024-10-22] MEDS: levETIRAcetam 500MG/NACL 100ML 500 MG/100 ML BAG 400 MG IVPB (13:09)
[2024-10-22 14:00] VITALS: BP 139/49; PULSE 75; RESP 18; TEMP 36.5; O2SAT 97
--- NOTE | 2024-10-22 15:35 | P.PNIM_ITS ---
Progress Note: A&P Assessment and Plan (1) Seizure disorder: Code(s): G40.909 - Epilepsy, unspecified, not intractable, without status epilepticus Status: Chronic Assessment and Plan: Patient had an episode concerning for brief seizure like activity. She has been getting her Keppra and lamictal except for this morning. Keppra IV 500mg IV x1 given. Will change her Keppra to IV scheduled. Seizure precautions. (2) Anorexia: Code(s): R63.0 - Anorexia Status: Acute Assessment and Plan: Patient is not eating much here mostly anywhere from 0-50%. [place] related to her dementia. Her mental status changes also related to dementia and not uncommon per family. She did eat some with family helping. No plans for feeding tube Supplements ordered and encouraged. Add low volume IV fluids. Calorie count in process but will be poor. (3) Acute gastric ulcer: Code(s): K25.3 - Acute gastric ulcer without hemorrhage or perforation Status: Acute Assessment and Plan: Patient with n/v and dry coffee ground around mouth and on cheek on 10/12/2024. Eliquis stopped. PPI started. GI consulted and EGD done 10/12/24 showing a large hiatal hernia without obstruction and a single cratered acute benign ulcer measuring 12 mm was visualized in the fundus in the proximal part of the hiatal hernia. There is no visible vessel of active bleeding. The stomach at the body, cardia and fundus was normal with no ulcers or masses. The bulb and second portion of duodenum was normal with no ulcers or masses. Coffee grounds noted in body of stomach. Stool guaiac positive. Full liquid diet that was advanced to heart healthy diet. Hgb low but stable in the 7-8 range PT/OT. Continue PPI. Monitor HH (4) Fecal impaction: Code(s): K56.41 - Fecal impaction Status: Acute Assessment and Plan: Patient had n/v at the senior care likely due to fecal impaction. Her fall is likely secondary to vasovagal event. Patient received Colace enema after arriving to the medical floor and subsequently went unresponsive while on the commode and had large amount of hard stool output followed by looser stool. Patient did have transient bradycardia with the event but vitals and blood pressure returned to normal. Mental status returned to normal shortly thereafter. Miralax and Senakot added KUB 10/15 showing fecal impaction of the colon and rectum. Medications increased and enemas given with results. Continue Miralax and Senakot. Monitor stool output. (5) Nausea & vomiting: Qualifiers: Vomiting type: unspecified Qualified Code(s): R11.2 - Nausea with vomiting, unspecified Code(s): R11.2 - Nausea with vomiting, unspecified Status: Acute Assessment and Plan: No further events. Prochlorperazine available PRN. (6) Vasovagal syncope: Code(s): R55 - Syncope and collapse Status: Acute Assessment and Plan: As above. Syncope likely secondary to vasovagal event with straining and passing large amount of hard stool. Mental status returned to normal shortly thereafter. Brain MRI showing no acute findings. Patient did have transient bradycardia with the event but vitals and blood pressure returned to normal. She was not on tele at the time. 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 EKG repeated 10/17 for her complaint of CP but no change from prior. [place] her chest pain is related to chest wall pain. No issues on tele. Tele has since been stopped. (7) Iron deficiency anemia: Qualifiers: Iron deficiency anemia type: chronic blood loss Qualified Code(s): D50.0 - Iron deficiency anemia secondary to blood loss (chronic) Code(s): D50.9 - Iron deficiency anemia, unspecified Status: Acute Assessment and Plan: Patient with acute blood loss anemia and underlying iron deficiency. Baseline Hgb 9-10 range. Iron sat 8% in August but better here at 28% but ferritin still low at 18. Hgb 8.7 on admission but dropped to 5.9 and she was transfused 2 units of PRBC's on 10/12 Hgb climbed to the 7-8 range and stable. Monitor hgb and transfuse to a stable hgb (8) Paroxysmal atrial fibrillation: Code(s): I48.0 - Paroxysmal atrial fibrillation Status: Chronic Assessment and Plan: EKG showing sinus mechanism Eliquis stopped due to ulcer and drop in blood counts. Continue Diltiazem. Also on Norvasc but was stopped since these are both calcium channel blockers. (9) Leukocytosis: Code(s): D72.829 - Elevated white blood cell count, unspecified Status: Acute Assessment and Plan: WBC elevated to 16K on admission. UA normal. BCx no growth to date. CXR negative. Probably stress response. WBC normal now. Follow periodically (10) B12 deficiency: Code(s): E53.8 - Deficiency of other specified B group vitamins Status: Acute Assessment and Plan: B12 level 234. Cyanocobalamin 1,000 mcg IM weekly x 4 weeks. Oral B12 added Plan DVT Prophylaxis - SCD Code status - DNR Subjective Date/time seen: 10/22/24 15:35 Interval history: 83yo female with pAFib, schizoaffective d/o, dementia and seizures here for ground level fall. SHe is alert but confused so hx unreliable. She refuses a majority of the exam. Was called back to the room for what appeared to be a brief seizure like activity. IV Keppra dose x1 given. She returned to her baseline. Family did feed patient lunch and she ate a bowl of soup. Patient has been refusing medications. Spoke with family in the room and to her daughter by phone. All questions answered. Dtr states patient has had episodes of poor oral intake and catatonia in the past lasting up to 3 weeks. Discussed briefly about feeding tube but dtr refuses. Review of Systems Review of Systems: ROS unobtainable: Yes unobtainable due to mental status Exam Narrative: AF 97.7 139/49 75 18 97% ra Gen - NARD lying semi-recumbent in bed Chest -clear to quiet respirations. CV - S1/S2 Abd - Soft, ND, no obvious tenderness Ext - No pedal edema Neuro - Alert and confused Psych - calm but pushes examiner's hand away. 'Get out of here' Skin - Warm and dry Objective Data Vital Signs Vital Signs: Vital Signs - 24 hr 10/21/24 20:00 10/21/24 21:50 10/22/24 06:00 Temperature 97.6 F 97.2 F L Pulse Rate 61 72 Respiratory Rate 16 20 Blood Pressure 146/46 H 134/48 L Pulse Oximetry 98 97 Oxygen Delivery Room Air 10/22/24 14:00 Temperature 97.7 F Pulse Rate 75 Respiratory Rate 18 Blood Pressure 139/49 L Pulse Oximetry 97 Oxygen Delivery Intake/Output Intake/Output: Intake & Output 06/14/25 06/15/25 06/16/25 06/17/25 23:59 23:59 23:59 23:59 Intake Total 870 700 290 480 Output Total 696 466 0536 Balance 158 -846 -951 930 Meds/Results Medications: Active Medications Generic Name Dose Route Start Last Admin Trade Name Freq PRN Reason Stop Dose Admin Acetaminophen 650 mg 10/11/24 20:25 10/17/24 12:32 Acetaminophen 325 Mg Tablet PO 650 mg Q4H PRN Administration Pain 1-3 or fever Bisacodyl 10 mg 10/12/24 15:11 Bisacodyl 10 Mg Suppository RECTAL DAILY PRN Constipation Cyanocobalamin 1,000 mcg 10/12/24 20:30 10/19/24 08:33 Cyanocobalamin Inj 1,000 Mcg/Ml Vial IM 11/02/24 09:01 1,000 mcg WEEKLY ALEXIS Administration Cyanocobalamin 1,000 mcg 10/17/24 09:00 10/21/24 09:33 Cyanocobalamin 1,000 Mcg Tablet PO 1,000 mcg QAM ALEXIS Administration Diltiazem HCl 120 mg 10/12/24 09:00 10/21/24 09:33 Diltiazem Hcl Cd 120 Mg Cap.24hr PO 120 mg DAILY ALEXIS Administration Donepezil HCl 10 mg 10/11/24 21:00 10/21/24 22:01 Donepezil Hcl 10 Mg Tablet PO 10 mg HS ALEXIS Administration Duloxetine HCl 60 mg 10/12/24 09:00 10/21/24 09:33 Duloxetine Hcl 60 Mg Capsule.Dr PO 60 mg DAILY ALEXIS Administration Fluticasone Propionate 2 spray 10/12/24 09:00 10/21/24 09:35 Fluticasone Propionate 0.05% Na Spr 16 Gm Btl (*Bkc) NASAL 2 spray DAILY ALEXIS Administration Lamotrigine 100 mg 10/12/24 09:00 10/21/24 09:33 Lamotrigine 100 Mg Tablet PO 100 mg DAILY ALEXIS Administration Levetiracetam 250 mg 10/11/24 21:00 10/21/24 22:02 Levetiracetam 250 Mg Tablet PO 250 mg Q12HR ALEXIS Administration Lorazepam 0.5 mg 10/12/24 20:26 10/14/24 13:31 Lorazepam (*Crx) 0.5 Mg Tablet PO 0.5 mg TID PRN Administration Anxiety Magnesium Oxide 400 mg 10/12/24 09:00 10/21/24 09:33 Magnesium Oxide 400 Mg Tablet PO 400 mg DAILY ALEXIS Administration Melatonin 3 mg 10/11/24 21:00 10/21/24 22:02 Melatonin 3 Mg Tablet PO 3 mg HS ALEXIS Administration Mirabegron 25 mg 10/12/24 09:00 10/21/24 09:32 Mirabegron 25 Mg Er Tablet PO 25 mg DAILY ALEXIS Administration Miscellaneous Information 0 each 10/22/24 00:01 Please Renew Lorazepam. Per [employer] Procedure, It Will Discontinue If Not Renewed XX 11/21/24 00:00 CLARIFY ALEXIS Multivitamins/Calcium 1 tablet 10/12/24 09:00 10/21/24 09:33 Therapeutic Multivitamins/Minerals Tab (*Bkc) PO 1 tablet DAILY ALEXIS Administration Pantoprazole Sodium 40 mg 10/17/24 09:00 10/21/24 09:33 Pantoprazole 40 Mg Tablet PO 40 mg QAM ALEXIS Administration Polyethylene Glycol 17 gm 10/21/24 09:00 10/21/24 16:36 Polyethylene Glycol 3350 17 Gm Powd.Pack PO Not Given BID ALEXIS Prochlorperazine Edisylate 10 mg 10/12/24 14:58 10/12/24 21:19 Prochlorperazine Edisylate 10 Mg/2 Ml Vial IV PUSH 10 mg Q6H PRN Administration Nausea And Vomiting Senna/Docusate Sodium 1 tab 10/15/24 17:00 10/21/24 16:36 Senna/Docusate Sodium Tablet PO Not Given BID [facility] Radiology Results: ITS Impressions Head/Neck CTA 10/11/24 15:07 IMPRESSION: 1. 40% stenosis of the right carotid bulb relative to normal distal artery lumen diameter (NASCET criteria). 2. 40% stenosis of the left carotid bulb relative to normal distal artery lumen diameter. 3. 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 4. 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 No acute intracranial process or abnormally enhancing brain lesions. 5. Cerebral CT angiogram demonstrates no hemodynamically significant stenosis, aneurysm or thrombosis. Of note the majority of flow to the posterior cerebral arteries appears to be supplied from the bilateral internal carotid arteries via patent bilateral posterior communicating arteries which are significantly larger than the diminutive bilateral P1 segments. Abdomen/Pelvis CT 10/11/24 15:34 IMPRESSION: Possible mild fecal impaction. No CT findings of stercoral colitis. Otherwise, no acute abdominopelvic process detected. Brain MRI 10/14/24 16:29 IMPRESSION: No acute intracranial process. Abdomen X-Ray 10/15/24 13:23 IMPRESSION: 1. Fecal impaction of the colon and rectum. No obstruction. Head CT 10/15/24 13:37 Impression: No intracranial hemorrhage, mass, or acute infarct. Atrophy and chronic white matter changes, as above. Chest X-Ray 10/20/24 06:40 Impression: Clear lungs. Modified Barium Swallow 10/21/24 08:59 IMPRESSION: Patient tolerated regular consistency oral feedings in the upright position. Please correlate with speech pathologist findings and specific feeding recommendations. Labs Labs: Laboratory Results - last 24 hr 10/22/24 12:53 POC Capillary Glucose 105
[2024-10-22] MEDS: DEXTROSE 5%/0.9% SOD CHL 1,000 ML 60 ML IV CONT (16:54)
--- NOTE | 2024-10-22 19:23 | PC.NURSE ---
no further seizure like activity, pt resting comfortably but still staring into space or looking at you but she does not speak refusing PO intake
[2024-10-22 21:28] VITALS: O2SAT 97
[2024-10-22 21:35] VITALS: BP 154/92; PULSE 85; RESP 16; TEMP 36.2; O2SAT 97
[2024-10-22] MEDS: levETIRAcetam IV 250 MG in DEXTROSE 5% 100 ML 430 MG IVPB (22:06)
[2024-10-22] MEDS: DONEPEZIL HCL 10 MG TABLET PO (22:14)
[2024-10-22] MEDS: MELATONIN 3 MG TABLET PO (22:14)
[2024-10-23 05:12] LABS: Basophils Percent Auto 0.2 % (0.2-1.2); Eosinophils Percent Auto 0.3 % (0-4.4); Hematocrit 34.2 % (37.0-47.0); Hemoglobin 10.6 g/dL (12.0-15.0); Immature Granulocyte Absolute 0.06 K/mm3 (0.00-0.031); Immature Granulocyte Percent A 0.5 % (0-0.5); Lymphocytes Absolute Auto 0.79 K/mm3 (0.9-3.2); Lymphocytes Percent Auto 6.7 % (18.3-44.2); Mean Corpuscular Hemoglobin 30.1 pg (26-34); Mean Corpuscular Volume 97.2 fl (80-100); Mean Platelet Volume 9.3 fl (7.4-10.4); Monocytes Absolute Auto 0.6 K/mm3 (0.1-0.6); Monocytes Percent Auto 5.5 % (2.6-8.5); Neutrophils Absolute Auto 10.2 K/mm3 (1.3-6.7); Neutrophils Percent Auto 86.8 % (45.5-73.1); Nucleated Red Blood Cells Perc 0.2 % (0.0-0.2); Platelet Count Result 503 k/mm3 (150-375); Red Blood Count 3.52 M/mm3 (4.2-5.4); Red Cell Distribution Width 15.1 % (11.5-14.5); White Blood Count 11.7 K/mm3 (4.5-10.0)
[2024-10-23 05:39] LABS: Albumin Level 3.9 g/dL (3.5-5.1); Anion Gap 9 mmol/L (4-12); Blood Urea Nitrogen 16 mg/dL (7-17); Calcium 9.2 mg/dL (8.4-10.2); Carbon Dioxide 21 mmol/L (22-30); Chloride 106 mmol/L (98-107); Estimated CRCL calculation 34 ml/min; Estimated Glomerular Filt Rate 52; Glucose 116 mg/dL (65-110); Magnesium 2.2 mg/dL (1.6-2.3); Phosphorus 3.1 mg/dL (2.5-4.5); Potassium 4.1 mmol/L (3.4-5.0); Sodium 136 mmol/L (137-145)
[2024-10-23 06:00] VITALS: BP 148/62; PULSE 89; RESP 12; TEMP 36.5; O2SAT 98
[2024-10-23 08:34] VITALS: RESP 14; O2SAT 98
[2024-10-23] MEDS: FLUTICASONE PROPIONATE 0.05% NA SPR 16 GM BTL (*BKC) 2 SPRAY NASAL (08:34)
[2024-10-23] MEDS: levETIRAcetam IV 250 MG in DEXTROSE 5% 100 ML 430 MG IVPB ×2 (08:46→20:24)
[2024-10-23] MEDS: DEXTROSE 5%/0.9% SOD CHL 1,000 ML 60 ML IV CONT (09:51)
--- NOTE | 2024-10-23 12:05 | PCNFU ---
Nutrition Follow-Up Complete: Inadequate Oral Intake a related to possible CVA as evidenced by limited oral intake reported. Goal; Meet estimated nutritional needs. Patient has limited progress towards goal. We will continue current goal. Pt current nutrition is Heart Healthy with Ensure Enlive and Nutritional Ice Cream TID. Last recorded weight is 71.2 kg, no new weight. Would recommend reweigh. Bowel Motility: Last reported BM 10/22 Labs Reviewed: Glu 116, Na 136, Hct 34.2, Hgb 10.6 Meds Noted: Miralax, Keppra, B12, Ativan,, Cymbalta Skin: WNL Additional Notes: Patient remains on a heart healthy diet. Calorie Count ordered 10/20. No tickets to evaluate. Per EMR patient eating 0%-10/20, 10/21. 20% reported at lunch 10/22 and 50% reported at dinner 10/22. No intake 10/23 for breakfast. Discussed with hospitalist today. Calorie count is complete. Patient is not consuming enough calories to sustain energy needs. Will continue to monitor weight, labs, skin, diet orders. meds every 3 days.
[2024-10-23 14:00] VITALS: BP 152/45; PULSE 74; RESP 18; TEMP 36.5; O2SAT 98
--- NOTE | 2024-10-23 15:00 | P.PNIM_ITS ---
Progress Note: A&P Assessment and Plan (1) Seizure disorder: Code(s): G40.909 - Epilepsy, unspecified, not intractable, without status epilepticus Status: Chronic Assessment and Plan: Patient had an episode concerning for brief seizure like activity. She has been getting her Keppra and Lamictal except for this morning. Keppra IV 500mg IV x1 given. * Keppra IV 250 BID until patient taking oral intake * Seizure precautions. * Neurology consulted (2) Anorexia: Code(s): R63.0 - Anorexia Status: Acute Assessment and Plan: Patient is not eating much here mostly anywhere from 0-50%. [place] related to her dementia. Her mental status changes also related to dementia and not uncommon per family. Patient not responding to questions or following any commands will not eat today. Unsure if this is failure to thrive vs psychiatric episode vs post seizure. * No plans for feeding tube per previous notes will discuss with daughter peg tube vs hospice if patient does not improve * Supplements ordered and encouraged. * Add low volume IV fluids Dextrose 5. Calorie count in process but will be poor. (3) Acute gastric ulcer: Code(s): K25.3 - Acute gastric ulcer without hemorrhage or perforation Status: Acute Assessment and Plan: Patient with n/v and dry coffee ground around mouth and on cheek on 10/12/2024. GI consulted and EGD done 10/12/24 showing a large hiatal hernia without obstruction and a single cratered acute benign ulcer measuring 12 mm was visualized in the fundus in the proximal part of the hiatal hernia. There is no visible vessel of active bleeding. The stomach at the body, cardia and fundus was normal with no ulcers or masses. The bulb and second portion of duodenum was normal with no ulcers or masses. Coffee grounds, Stool guaiac positive. * Eliquis stopped. * PPI BID * Full liquid diet that was advanced to heart healthy diet but not eating now * Hgb low but stable in the 10.6 * Monitor HH (4) Fecal impaction: Code(s): K56.41 - Fecal impaction Status: Acute Assessment and Plan: Patient had n/v at the [facility] likely due to fecal impaction. Her fall is likely secondary to vasovagal event. Patient received Colace enema after arriving to the medical floor and subsequently went unresponsive while on the commode and had large amount of hard stool output followed by looser stool. Patient did have transient bradycardia with the event but vitals and blood pressure returned to normal. Mental status returned to normal shortly thereafter. KUB 10/15 showing fecal impaction of the colon and rectum. Medicatio ns increased and enemas given with results. * Continue Miralax and Senakot. * Monitor stool output. * Last BM 10/22 (5) Iron deficiency anemia: Qualifiers: Iron deficiency anemia type: chronic blood loss Qualified Code(s): D50.0 - Iron deficiency anemia secondary to blood loss (chronic) Code(s): D50.9 - Iron deficiency anemia, unspecified Status: Acute Assessment and Plan: Patient with acute blood loss anemia and underlying iron deficiency. Baseline Hgb 9-10 range. Iron sat 8% in August but better here at 28% but ferritin still low at 18. Hgb 8.7 on admission but dropped to 5.9 and she was transfused 2 units of PRBC's on 10/12. Eliquis was stopped * Monitoring H&H up to 10 * Transfuse if <7.0 (6) Paroxysmal atrial fibrillation: Code(s): I48.0 - Paroxysmal atrial fibrillation Status: Chronic Assessment and Plan: EKG showing sinus mechanism * Eliquis stopped due to ulcer and drop in blood counts. * Continue Diltiazem. * Norvasc stopped since it was also a CCB (7) B12 deficiency: Code(s): E53.8 - Deficiency of other specified B group vitamins Status: Acute Assessment and Plan: B12 level 234. * Cyanocobalamin 1,000 mcg IM weekly x 4 weeks. * Oral B12 added (8) Leukocytosis: Code(s): D72.829 - Elevated white blood cell count, unspecified Status: Acute Assessment and Plan: WBC elevated to 16K on admission. UA normal.BCx no growth to date. CXR negative. Probably stress response. WBC normal now. * Bumped back up to 11.7 likely due to seizure * trend CBC (9) Vasovagal syncope: Code(s): R55 - Syncope and collapse Status: Resolved Assessment and Plan: As above. Syncope likely secondary to vasovagal event with straining and passing large amount of hard stool. Mental status returned to normal shortly thereafter. Brain MRI showing no acute findings. Patient did have transient bradycardia with the event but vitals and blood pressure returned to normal. She was not on tele at the time. 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 EKG repeated 10/17 for her complaint of CP but no change from prior. No issues on tele. Tele has since been stopped. Plan Code status: Full code per patient DVT prophylaxis: SCD's Stress ulcer prophylaxis: Protonix 40 daily PT/OT notes: PT OT has been ordered but patient at this time refusing to work with them Disposition: patient continues admission to medical unit at seizure-like activity but now is and a catatonia like state will not eat or take her medications or work with physical occupational therapy. Neurology and Psychiatry consulted for further recommendation is however she continues family will need to make a decision on whether to place a PEG tube for nutrition and medications or consider hospice care. Time Spent With Patient Time with patient: 15 - 25 minutes Subjective Date/time seen: 10/23/24 15:00 Interval history: 83yo female with pAFib, schizoaffective d/o, dementia and seizures here for ground level fall. 10/23/2024: Assuming care Patient still not responding to questions, refusing to take any medication or oral intake. Neurology consulted, also consulted Psychiatry to evaluate for catatonia state previous history of schizoaffective and reported 3 week catatonia previously. Spoke with family at beside about feeding tube vs hospice care will speak with daughter this evening regarding plan of care. Review of Systems Review of Systems: Unobtainable due mental and medical status ROS unobtainable: Yes unobtainable due to mental status Exam Narrative: Gen Mk SHEN lying semi-recumbent in bed, tracking with eyes but will not respond to questions or follow commands Chest -clear to quiet respirations. CV - S1/S2 Abd - Soft, ND, no obvious tenderness Ext - No pedal edema Neuro - Alert and confused Psych - calm held may hands non-aggressive Skin - Warm and dry Objective Data Vital Signs Vital Signs: Vital Signs - 24 hr 10/22/24 20:00 10/22/24 21:28 10/22/24 21:35 Temperature 97.2 F L Pulse Rate 85 Respiratory Rate 16 Blood Pressure 154/92 H Pulse Oximetry 97 97 Oxygen Delivery Room Air Room Air 10/23/24 06:00 10/23/24 08:34 10/23/24 14:00 Temperature 97.7 F 97.7 F Pulse Rate 89 74 Respiratory Rate 12 14 18 Blood Pressure 148/62 H 152/45 H Pulse Oximetry 98 98 98 Oxygen Delivery Room Air Intake/Output Intake/Output: Intake & Output 10/20/24 10/21/24 10/22/24 10/23/24 23:59 23:59 23:59 23:59 Intake Total 700 290 582.5 1067.3 Output Total 900 1000 150 Balance -200 -710 432.5 1067.3 Meds/Results Medications: Active Medications Generic Name Dose Route Start Last Admin Trade Name Mayte PRN Reason Stop Dose Admin Acetaminophen 650 mg 10/11/24 20:25 10/17/24 12:32 Acetaminophen 325 Mg Tablet PO 650 mg Q4H PRN Administration Pain 1-3 or fever Bisacodyl 10 mg 10/12/24 15:11 Bisacodyl 10 Mg Suppository RECTAL DAILY PRN Constipation Cyanocobalamin 1,000 mcg 10/12/24 20:30 10/19/24 08:33 Cyanocobalamin Inj 1,000 Mcg/Ml Vial IM 11/02/24 09:01 1,000 mcg WEEKLY ALEXIS Administration Cyanocobalamin 1,000 mcg 10/17/24 09:00 10/23/24 08:35 Cyanocobalamin 1,000 Mcg Tablet PO Not Given QAM ALEXIS Diltiazem HCl 120 mg 10/12/24 09:00 10/23/24 08:35 Diltiazem Hcl Cd 120 Mg Cap.24hr PO Not Given DAILY ALEXIS Donepezil HCl 10 mg 10/11/24 21:00 10/22/24 22:14 Donepezil Hcl 10 Mg Tablet PO 10 mg HS ALEXIS Administration Duloxetine HCl 60 mg 10/12/24 09:00 10/23/24 08:35 Duloxetine Hcl 60 Mg Capsule.Dr PO Not Given DAILY ALEXIS Fluticasone Propionate 2 spray 10/12/24 09:00 10/23/24 08:34 Fluticasone Propionate 0.05% Na Spr 16 Gm Btl (*Bkc) NASAL 2 spray DAILY ALEXIS Administration Levetiracetam 250 mg/ Dextrose 102.5 mls @ 430 mls/hr 10/22/24 21:00 10/23/24 09:05 IVPB Infused Q12HR ALEXIS Infusion Dextrose/Sodium Chloride 1,000 mls @ 60 mls/hr 10/22/24 15:45 10/23/24 09:51 Dextrose 5% Sodium Chloride 0.9% IV CONT 60 mls/hr .[id number] ALEXIS Administration Lamotrigine 100 mg 10/12/24 09:00 10/23/24 08:34 Lamotrigine 100 Mg Tablet PO Not Given DAILY ALEXIS Levetiracetam 250 mg 10/11/24 21:00 10/22/24 17:05 Levetiracetam 250 Mg Tablet PO Not Given Q12HR ALEXIS Magnesium Oxide 400 mg 10/12/24 09:00 10/23/24 08:32 Magnesium Oxide 400 Mg Tablet PO Not Given DAILY ALEXIS Melatonin 3 mg 10/11/24 21:00 10/22/24 22:14 Melatonin 3 Mg Tablet PO 3 mg HS ALEXIS Administration Mirabegron 25 mg 10/12/24 09:00 10/23/24 08:33 Mirabegron 25 Mg Er Tablet PO Not Given DAILY ALEXIS Miscellaneous Information 0 each 10/22/24 00:01 Please Renew Lorazepam. Per [employer] Procedure, It Will Discontinue If Not Re newed XX 11/21/24 00:00 CLARIFY ALEXIS Multivitamins/Calcium 1 tablet 10/12/24 09:00 10/23/24 08:32 Therapeutic Multivitamins/Minerals Tab (*Bkc) PO Not Given DAILY [facility] Pantoprazole Sodium 40 mg 10/17/24 09:00 10/23/24 08:33 Pantoprazole 40 Mg Tablet PO Not Given QAM [facility] Polyethylene Glycol 17 gm 10/21/24 09:00 10/23/24 08:35 Polyethylene Glycol 3350 17 Gm Powd.Pack PO Not Given BID [facility] Prochlorperazine Edisylate 10 mg 10/12/24 14:58 10/12/24 21:19 Prochlorperazine Edisylate 10 Mg/2 Ml Vial IV PUSH 10 mg Q6H PRN Administration Nausea And Vomiting Senna/Docusate Sodium 1 tab 10/15/24 17:00 10/23/24 08:35 Senna/Docusate Sodium Tablet PO Not Given BID [facility] Radiology Results: ITS Impressions Head/Neck CTA 10/11/24 15:07 IMPRESSION: 1. 40% stenosis of the right carotid bulb relative to normal distal artery lumen diameter (NASCET criteria). 2. 40% stenosis of the left carotid bulb relative to normal distal artery lumen diameter. 3. 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 4. 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 No acute intracranial process or abnormally enhancing brain lesio ns. 5. Cerebral CT angiogram demonstrates no hemodynamically significant stenosis, aneurysm or thrombosis. Of note the majority of flow to the posterior cerebral arteries appears to be supplied from the bilateral internal carotid arteries via patent bilateral posterior communicating arteries which are significantly larger than the diminutive bilateral P1 segments. Abdomen/Pelvis CT 10/11/24 15:34 IMPRESSION: Possible mild fecal impaction. No CT findings of stercoral colitis. Otherwise, no acute abdominopelvic process detected. Brain MRI 10/14/24 16:29 IMPRESSION: No acute intracranial process. Abdomen X-Ray 10/15/24 13:23 IMPRESSION: 1. Fecal impaction of the colon and rectum. No obstruction. Head CT 10/15/24 13:37 Impression: No intracranial hemorrhage, mass, or acute infarct. Atrophy and chronic white matter changes, as above. Chest X-Ray 10/20/24 06:40 Impression: Clear lungs. Modified Barium Swallow 10/21/24 08:59 IMPRESSION: Patient tolerated regular consistency oral feedings in the upright position. Please correlate with speech pathologist findings and specific feeding recommendations. Labs Labs: Laboratory Results - last 24 hr 10/23/24 04:26 WBC 11.7 H RBC 3.52 L Hgb 10.6 L Hct 34.2 L MCV 97.2 MCH 30.1 MCHC 31.0 L RDW 15.1 H Plt Count 503 H D MPV 9.3 Immature Gran % (Auto) 0.5 Neut % (Auto) 86.8 H Lymph % (Auto) 6.[address] [place] % (Auto) 5.5 Eos % (Auto) 0.3 Baso % (Auto) 0.2 Lymph # (Auto) 0.[address] [place] # (Auto) 0.6 Eos # (Auto) 0.0 Baso # (Auto) 0.0 Abs Immat Gran (auto) 0.06 H Absolute Neuts (auto) 10.2 H Absolute Nucleated RBC 0.020 H Nucleated RBC % 0.2 Sodium 136 L Potassium 4.1 Chloride 106 Carbon Dioxide 21 L Anion Gap 9 BUN 16 Creatinine 1.01 H Estim Creat Clear Calc 34 Estimated GFR 52 L Glucose 116 H Calcium 9.2 Phosphorus 3.1 Magnesium 2.2 Albumin 3.9 Quality VTE Prophylaxis VTE prophylaxis: mechanical ordered -Patient's previous records reviewed on admission -ER notes reviewed in detail on admission -discussed all findings and current treatment plan with patient/Family/POA -Consultations reviewed for recommendations -Patient's disposition for safe discharge discussed with caser Dictation performed by [employer] direct speech recognition software, therefore gun numberer variants and typographical errors may occur. Hospitalist MIPS Advance Care Plan I have confirmed that the patient's Advanced Care Plan is present, code status is documented, or surrogate decision maker is listed in patient medical record.: Yes Medication Reconciliation I have utilized all available resources to obtain, update and review the patients current medications (includes all prescriptions, OTC, herbals, cannabis, and nutritional supplements).: Yes The patient is not eligible for med reconciliation; the patient is in a emergent medical situation where delaying treatment would jeopardize the patients health.: No
[2024-10-23] MEDS: LORazepam INJ (*CRX) 2 MG/ML VIAL 0.5 MG IV PUSH (17:25)
--- NOTE | 2024-10-23 17:34 | PC.NURSE ---
Jennifer Hi BIT SHAVER here requested Ativan PRN does to be administer so she can observe patient for 30min after administration for catonia
--- NOTE | 2024-10-23 17:39 | P.PSYCH_ITS ---
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 The patient is refusing food and drink except for a single sip of water, with minimal PO intake for >24 hours. This presentation is concerning in the context of the patient's complex medical history and current admission for an acute gastric ulcer. administered lorazepam 0.5 mg IV once at 1733. reassessed patient at 1800. patient was able to tell me her name and birthday. she was able to move her arms and take a bite of food. she did not demonstrate waxy flexibility or posturing. hamilton-kalin catatonia rating scale decreased from 19 to 3. Plan: - Initiate lorazepam 0.5mg IV TID PRN (would suggest 20-30 minutes before meals or medication pass) - Lorazepam is a benzodiazepine that enhances the effect of HERMINIA, the brain's primary inhibitory neurotransmitter. - in catatonia, Gabargic dysfunction is believed to play a central role. Lorazepam increases HERMINIA actively, helping to restore normal brain function, especially in motor and behavioral control. - IV Ativan acts rapidly with reliable absorption. - Monitor for sedation and respiratory depression - Avoid antipsychotics - Investigate underlying causes and treat them - Evaluate for UTI - Assess for stroke - Check metabolic panel - Assess hydration status *catatonia is a syndrome, not a disease, so duration depends on the cause, if medical cause (infection, metabolic, autoimmune) duration depends on how fast the underlying condition is addressed. anorexia - Consider initiating mirtazapine 7.5mg nightly when catatonia improves (lower does are better for appetite stimulation) HPI Data of Consult Date/Time: 10/23/24 17:39 Requesting Physician: Alyssia Long APRN Primary Care Provider: Maddy Kemp Consult Narrative Narrative: Kenton Wilhelm is an 83-year-old female with a history of schizoaffective disorder, dementia, and multiple medical comorbidities, who was admitted to [facility] on 10/11/2024 for an acute gastric ulcer. She is currently presenting with symptoms of catatonia. The patient was admitted to [facility] on October 11, 2024, for management of an acute gastric ulcer. During her hospitalization, she has developed symptoms consistent with catatonia, including immobility, stupor, mutism, poor eye contact, decreased blinking, posturing catalepsy lasting more than 15 minutes, pill rolling, and waxy flexibility. She is refusing food and drink, except for a single sip of water, with minimal oral intake for more than 24 hours. The patient may have had seizure activity on 10/22/2024. She was initially placed on a full liquid diet, which was advancing to a heart-healthy diet, but she is currently not eating. multiple medical issues, including cough after eating, anorexia, vasovagal syncope, fecal impaction, nausea and vomiting, acute CVA, slurred speech, ventricular tachycardia, urinary tract infection, occult GI bleed, generalized weakness, coffee ground emesis, and dysphagia. The patient's complex medical history includes chronic kidney disease, congestive heart failure, seizure disorder, and atrial fibrillation, which may be contributing to her current presentation. She is also being treated for depression with duloxetine, and for her seizure disorder with lamotrigine and Keppra. She may have gone a period of time without her medication r/t poor PO intake resulting in seizure activity and HTN. patient was given 0.5 mg lorazepam IV at 1733 and within 30 minutes catatonic symptoms improved. Review of Systems 2 Review of Systems: persistent HTN. Psychiatric manifestations are significant, with the patient displaying immobility, stupor, mutism, poor eye contact, decreased blinking, posturing catalepsy lasting over 15 minutes, pill rolling, and waxy flexibility. The patient is refusing food and drink, with minimal oral intake for over 24 hours, except for a single sip of water. Constitutional: Comments: Patient shows immobility and stupor. Eyes: Comments: Poor eye contact, decreased blinking. Musculoskeletal: Comments: Posturing catalepsy >15 minutes, pill rolling present, waxy flexibility noted. Psychiatric: Comments: The patient presents with significant psychomotor abnormalities, including immobility, stupor, and mutism. Poor eye contact and decreased blinking are observed. Notable motor findings include posturing catalepsy lasting over 15 minutes, pill rolling movements, and waxy flexibility. The patient's behavior is characterized by refusal of food and drink, with the exception of a single sip of water. Minimal oral intake has been noted for more than 24 hours. The patient's level of consciousness appears altered, as evidenced by the stuporous state. 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 admitted with HGB 9.9 with downward trend, currently 5.9 receiving 2 units packed cells. 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, 2019 Thoracic compression fracture T10 Essential hypertension Osteoporosis Frequent urinary tract infections history of ESBL E coli infection March 2018 Seizure disorder Schizoaffective disorder Hyperlipidemia Depression Dementia Paroxysmal atrial fibrillation Surgical History Surgical History History of arthroscopy of left shoulder History of total left hip arthroplasty (2015) History of bladder suspension procedure History of hysterectomy Family History Family History Sibling Dementia Cerebrovascular accident Sibling Acute myocardial infarction Mother Cirrhosis Father Emphysema of lung Social History Social History (Updated 10/11/24 @ 23:13 by Magaly Bermudez DO) Social History: Surrogate medical decision maker: Cameron Naranjo. Code status: DNR/DNI Smoking packs per day: 1 Smoking cigarettes per day: 20.0 Years smoked: 10 Smoking pack-years: 10.00 Smoking status: Former smoker Second hand tobacco smoke exposure: No Alcohol intake: never Substance use: never Substance use type: does not use Do You Feel Safe in your Home?: Yes Lack of Transportation: No Lack of Food: Never True Current Housing: I Have Housing Concerned About Future Housing: No Difficulty Paying Gas/Electric Bills: No Difficulty Paying for Meds: No Currently Unemployed: No Education: Grade School Difficulty w/ Childcare or Family Care: No Additional living arrangements comments: . Resident at [facility]. 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: No Agree to blood products: Yes Meds Home Medications and Allergies Home Medications ?Medication ?Instructions ?Recorded ?Confirmed ?Type cholecalciferol (vitamin D3) 1,250 50,000 unit PO WEEKLY 03/20/19 10/11/24 History mcg (50,000 unit) tablet donepezil 10 mg tablet 10 mg PO HS 03/20/19 10/11/24 History polyethylene glycol 3350 17 17 g PO DAILY PRN Constipation 03/20/19 10/11/24 History gram/dose oral powder (Miralax) duloxetine 60 mg capsule,delayed 60 mg PO DAILY 07/16/21 10/11/24 History release lamotrigine 100 mg tablet 100 mg PO DAILY 07/16/21 10/11/24 History levetiracetam 250 mg tablet 250 mg PO BID 07/16/21 10/11/24 History (Keppra) melatonin 3 mg tablet 3 mg PO HS 07/16/21 10/11/24 History fluticasone propionate 50 2 spray intranasal DAILY 04/05/22 10/11/24 History mcg/actuation nasal spray,suspension (Allergy Relief (fluticasone)) mirabegron 25 mg tablet,extended 25 mg PO DAILY 04/05/22 10/11/24 History release 24 hr (Myrbetriq) Marisol-Tussin 5 ml PO Q6H PRN Congestion 09/13/22 10/11/24 History acetaminophen 325 mg tablet 650 mg PO Q4H PRN Pain (Scale 09/13/22 10/11/24 History Score 1-3) magnesium oxide 1 tablet PO DAILY 09/13/22 10/11/24 History sennosides 8.6 mg-docusate sodium 1 tab-cap PO DAILY 06/06/23 10/11/24 History 50 mg tablet (Senna Plus) apixaban 5 mg tablet (Eliquis) 5 mg PO Q12HR #60 tabs 06/13/23 10/11/24 Rx diltiazem HCl 120 mg 120 mg PO DAILY #30 caps 06/13/23 10/11/24 Rx capsule,extended release 24 hr multivitamin with iron-mineral 1 tablet PO DAILY 08/31/24 10/11/24 History pantoprazole 40 mg tablet,delayed 40 mg PO Q12H 08/31/24 10/11/24 History release lorazepam 0.5 mg tablet 0.5 mg PO TID #1 tablet 09/06/24 10/11/24 Rx amlodipine 5 mg tablet 5 mg PO DAILY 10/11/24 10/11/24 History Allergies Allergy/AdvReac Type Severity Reaction Status Date / Time sertraline Allergy Severe Unknown Verified 10/12/24 11:43 hydromorphone Allergy Intermediate Unknown Verified 10/12/24 11:43 Vital Signs Vital Signs - 24 hr 10/22/24 20:00 10/22/24 21:28 10/22/24 21:35 Temperature 97.2 F L Pulse Rate 85 Respiratory Rate 16 Blood Pressure 154/92 H Pulse Oximetry 97 97 Oxygen Delivery Room Air Room Air 10/23/24 06:00 10/23/24 08:34 10/23/24 14:00 Temperature 97.7 F 97.7 F Pulse Rate 89 74 Respiratory Rate 12 14 18 Blood Pressure 148/62 H 152/45 H Pulse Oximetry 98 98 98 Oxygen Delivery Room Air Exam 2 Narrative: gen- lying semi-recumbent in bed, tracking with eyes but will not respond to questions or follow commands at beginning of assessment after intervention of lorazepam patient able to move arms and respond verbally following commands and answering questions tongue dry neuro- alert psych- before intervention did not grasp hands, after intervention, held hands and responded to questions skin- warm/dry Psych: Other: Mental Status Examination The patient presents with significant psychomotor abnormalities, including immobility, stupor, and mutism. Poor eye contact and decreased blinking are observed. Notable motor findings include posturing catalepsy lasting over 15 minutes, pill rolling movements, and waxy flexibility. The patient's behavior is characterized by refusal of food and drink, with the exception of a single sip of water. Minimal oral intake has been noted for more than 24 hours. The patient's level of consciousness appears altered, as evidenced by the sporous state. after lorazepam administration, patient able to answer questions, able to follow commands and move BUE. took a sip of water. absence of waxy flexibility. absence of posturing/catalepsy. appearance: frail appearance, dry tongue, pale mental status: stuporous before intervention, alert and oriented to name after intervention. speech and movement: stupor, mutism, decreased blinking, posturing, catalepsy, pill rolling movements. after lorazepam: improved ROM of TADEO, able to state her name and birthday, absence of posturing, catalepsy, continued pill rollng movements. affect: blank before intervention, blunted after lorazepam insight: poor judgment: impaired Results Labs 10/23/24 04:26 10/23/24 04:26 Labs: Short CBC 10/23/24 Range/Units 04:26 WBC 11.7 H (4.5-10.0) K/mm3 Hgb 10.6 L (12.0-15.0) g/dL Hct 34.2 L (37.0-47.0) % Plt Count 503 H D (150-375) k/mm3 BMP 10/23/24 04:26 Sodium 136 L Potassium 4.1 Chloride 106 Carbon Dioxide 21 L BUN 16 Creatinine 1.01 H Glucose 116 H Calcium 9.2 Liver Function 10/23/24 Range/Units 04:26 Albumin 3.9 (3.5-5.1) g/dL
--- NOTE | 2024-10-23 19:19 | P.PNCROSS_ITS ---
Event Note Event Note Event Note: Recommendations from Psychiatry 0.5mg IV TID PRN (would suggest 20-30 minutes b efore meals or medication pass) Will ordered scheduled before meals
--- NOTE | 2024-10-23 19:19 | PM.EVENT ---
Event Note Event Note Event Note: Recommendations from Psychiatry 0.5mg IV TID PRN (would suggest 20-30 minutes before meals or medication pass) Will ordered scheduled before meals
[2024-10-23 20:13] VITALS: BP 123/54; PULSE 85; RESP 16; TEMP 36.8; O2SAT 98
[2024-10-23] MEDS: DONEPEZIL HCL 10 MG TABLET PO (20:24)
[2024-10-23] MEDS: MELATONIN 3 MG TABLET PO (20:24)
[2024-10-23 21:34] VITALS: PULSE 60; O2SAT 92
[2024-10-24] MEDS: DEXTROSE 5%/0.9% SOD CHL 1,000 ML 60 ML IV CONT (01:55)
--- NOTE | 2024-10-24 02:16 | PCRCNOTE ---
Pt is a hard stick VBG was attempted by 3 RN and took time to complete. 10/23/2024 1140
[2024-10-24 04:29] VITALS: BP 118/63; PULSE 78; RESP 18; TEMP 36.7; O2SAT 96
[2024-10-24 05:29] LABS: Hematocrit 31.7 % (37.0-47.0); Hemoglobin 9.7 g/dL (12.0-15.0); Mean Corpuscular HGB Conc 30.6 g/dl (32-36); Mean Corpuscular Hemoglobin 29.8 pg (26-34); Mean Corpuscular Volume 97.5 fl (80-100); Mean Platelet Volume 9.3 fl (7.4-10.4); Platelet Count Result 481 k/mm3 (150-375); Red Blood Count 3.25 M/mm3 (4.2-5.4); Red Cell Distribution Width 15.2 % (11.5-14.5); White Blood Count 13.6 K/mm3 (4.5-10.0)
[2024-10-24 05:46] LABS: Alanine Aminotransferase 28 U/L (6-35); Albumin Level 3.7 g/dL (3.5-5.1); Alkaline Phosphatase 83 U/L (38-126); Anion Gap 9 mmol/L (4-12); Aspartate Amino Transferase 44 U/L (14-36); Bilirubin,Total 0.4 mg/dL (0.2-1.3); Blood Urea Nitrogen 13 mg/dL (7-17); Calcium 9.3 mg/dL (8.4-10.2); Carbon Dioxide 22 mmol/L (22-30); Chloride 107 mmol/L (98-107); Estimated CRCL calculation 37 ml/min; Estimated Glomerular Filt Rate 57; Glucose 98 mg/dL (65-110); Potassium 3.5 mmol/L (3.4-5.0); Sodium 138 mmol/L (137-145); Total Protein 6.7 g/dL (6.3-8.2)
[2024-10-24] MEDS: LORazepam INJ (*CRX) 2 MG/ML VIAL 0.5 MG IV PUSH ×3 (06:16→16:37)
[2024-10-24] MEDS: levETIRAcetam IV 250 MG in DEXTROSE 5% 100 ML 300 MG IVPB ×2 (08:22→22:20)
[2024-10-24] MEDS: dilTIAZem HCL CD 120 MG CAP.24HR PO (08:24)
[2024-10-24] MEDS: lamoTRIgine 100 MG TABLET PO (08:24)
[2024-10-24] MEDS: PANTOPRAZOLE 40 MG TABLET PO (08:24)
[2024-10-24] MEDS: MIRABEGRON 25 MG ER TABLET PO (08:25)
[2024-10-24] MEDS: CYANOCOBALAMIN 1,000 MCG TABLET 1000 MCG PO (08:25)
[2024-10-24] MEDS: SENNA/DOCUSATE SODIUM TABLET 1 TAB PO (08:25)
[2024-10-24] MEDS: DULoxetine HCL 60 MG CAPSULE.DR PO (08:25)
[2024-10-24 08:26] VITALS: RESP 18; O2SAT 96
[2024-10-24] MEDS: MAGNESIUM OXIDE 400 MG TABLET PO (08:26)
[2024-10-24] MEDS: THERAPEUTIC MULTIVITAMINS/MINERALS TAB (*BKC) 1 TABLET PO (08:26)
[2024-10-24] MEDS: FLUTICASONE PROPIONATE 0.05% NA SPR 16 GM BTL (*BKC) 2 SPRAY NASAL (08:26)
[2024-10-24] MEDS: polyethylene glycoL 3350 17 GM POWD.PACK PO (08:26)
--- NOTE | 2024-10-24 10:21 | P.PNIM_ITS ---
Progress Note: A&P Assessment and Plan (1) Seizure disorder: Code(s): G40.909 - Epilepsy, unspecified, not intractable, without status epilepticus Status: Chronic Assessment and Plan: Patient had an episode concerning for brief seizure like activity. She has been getting her Keppra and Lamictal except for this morning. Keppra IV 500mg IV x1 given. * Keppra IV 250 BID until patient taking oral intake * will Continue lamitical * Seizure precautions. 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 * transition patient to IV Ativan t.i.d. started to improve with 1st dose * consulted Psychiatry for further evaluation recommendations at which time they recommended to continue with the Ativan but can do p.r.n. * psychiatry recommends mirtazapine 7.5 mg nightly once the catatonia improves this can also clinic office assistant appetite stimulation (3) Anorexia: Code(s): R63.0 - Anorexia Status: Acute Assessment and Plan: Patient is not eating much here mostly anywhere from 0-50%. [place] related to her dementia. Her mental status changes also related to dementia and not uncommon per family. Patient not responding to questions or following any commands will not eat today. Unsure if this is failure to thrive vs psychiatric episode vs post seizure. * No plans for feeding tube per previous notes will discuss with daughter peg tube vs hospice if patient does not improve * Supplements ordered and encouraged. * Add low volume IV fluids Dextrose 5. Calorie count in process but will be poor. * psychiatry recommends mirtazapine 7.5 mg nightly once the catatonia improves this can also clinic office assistant appetite stimulation (4) Acute gastric ulcer: Code(s): K25.3 - Acute gastric ulcer without hemorrhage or perforation Status: Acute Assessment and Plan: Patient with n/v and dry coffee ground around mouth and on cheek on 10/12/2024. GI consulted and EGD done 10/12/24 showing a large hiatal hernia without obstruction and a single cratered acute benign ulcer measuring 12 mm was visualized in the fundus in the proximal part of the hiatal hernia. There is no visible vessel of active bleeding. The stomach at the body, cardia and fundus was normal with no ulcers or masses. The bulb and second portion of duodenum was normal with no ulcers or masses. Coffee grounds, Stool guaiac positive. * Eliquis stopped. * PPI BID * Full liquid diet that was advanced to heart healthy diet but not eating now * Hgb low but stable in the 10.6 * Monitor HH (5) Fecal impaction: Code(s): K56.41 - Fecal impaction Status: Acute Assessment and Plan: [facility] likely due to fecal impaction. Her fall is likely secondary to vasovagal event. Patient received Colace enema after arriving to the medical floor and subsequently went unresponsive while on the commode and had large amount of hard stool output followed by looser stool. Patient did have transient bradycardia with the event but vitals and blood pressure returned to normal. Mental status returned to normal shortly thereafter. KUB 10/15 showing fecal impaction of the colon and rectum. Medications increased and enemas given with results. * Continue Miralax and Senakot. * Monitor stool output. * Last BM 10/22 (6) Iron deficiency anemia: Qualifiers: Iron deficiency anemia type: chronic blood loss Qualified Code(s): D50.0 - Iron deficiency anemia secondary to blood loss (chronic) Code(s): D50.9 - Iron deficiency anemia, unspecified Status: Acute Assessment and Plan: Patient with acute blood loss anemia and underlying iron deficiency. Baseline Hgb 9-10 range. Iron sat 8% in August but better here at 28% but ferritin still low at 18. Hgb 8.7 on admission but dropped to 5.9 and she was transfused 2 units of PRBC's on 10/12. Eliquis was stopped * Monitoring H&H up to 10 * Transfuse if <7.0 (7) Paroxysmal atrial fibrillation: Code(s): I48.0 - Paroxysmal atrial fibrillation Status: Chronic Assessment and Plan: EKG showing sinus mechanism * Eliquis stopped due to ulcer and drop in blood counts. * Continue Diltiazem. * Norvasc stopped since it was also a CCB (8) B12 deficiency: Code(s): E53.8 - Deficiency of other specified B group vitamins Status: Acute Assessment and Plan: B12 level 234. * Cyanocobalamin 1,000 mcg IM weekly x 4 weeks. * Oral B12 added (9) Leukocytosis: Code(s): D72.829 - Elevated white blood cell count, unspecified Status: Acute Assessment and Plan: WBC elevated to 16K on admission. UA normal.BCx no growth to date. CXR negative. Probably stress response. WBC normal now. * Bumped back up to 11.7 likely due to seizure * trend CBC L (10) Vasovagal syncope: Code(s): R55 - Syncope and collapse Status: Resolved Assessment and Plan: As above. Syncope likely secondary to vasovagal event with straining and passing large amount of hard stool. Mental status returned to normal shortly thereafter. Brain MRI showing no acute findings. Patient did have transient bradycardia with the event but vitals and blood pressure returned to normal. She was not on tele at the time. 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 EKG repeated 10/17 for her complaint of CP but no change from prior. No issues on tele. Tele has since been stopped. Plan Code status: Full code per patient DVT prophylaxis: SCD's Stress ulcer prophylaxis: Protonix 40 daily PT/OT notes: PT OT has been ordered but patient at this time refusing to work with them Disposition: patient continues admission to medical unit alert and working woth PT/OT today has been seen be neurology and psychiatry, plan for EEG and started new medication. Requested assistance by CC for placement family has reservations about returning to her current facility. Time Spent With Patient Time with patient: 15 - 25 minutes Subjective Date/time seen: 10/24/24 10:21 Interval history: 83yo female with pAFib, schizoaffective d/o, dementia and seizures here for ground level fall. 10/24/2024: Patient alert and oriented able to answer some questions correctly including her name and date of . She has been eating well all day and even worked with PT/OT this afternoon. Family at beside updated Review of Systems Review of Systems: All systems reviewed & are unremarkable except as noted in HPI and below Exam Narrative: Gen - NARD awake and alert able to answer some questions today family at beside Chest -clear to quiet respirations. CV - S1/S2 Abd - Soft, ND, no obvious tenderness Ext - No pedal edema Neuro - Alert and confused Psych - calm and cooperative Skin - Warm and dry Objective Data Vital Signs Vital Signs: Vital Signs - 24 hr 10/23/24 14:00 10/23/24 20:00 10/23/24 20:13 Temperature 97.7 F 98.3 F Pulse Rate 74 85 Respiratory Rate 18 16 Blood Pressure 152/45 H 123/54 L Pulse Oximetry 98 98 Oxygen Delivery Room Air Fraction of Inspired Oxygen 10/23/24 21:34 10/24/24 04:29 Temperature 98.1 F Pulse Rate 60 78 Respiratory Rate 18 Blood Pressure 118/63 Pulse Oximetry 92 96 Oxygen Delivery Room Air Fraction of Inspired Oxygen 21 Intake/Output Intake/Output: Intake & Output 10/21/24 10/22/24 10/23/24 10/24/24 23:59 23:59 23:59 23:59 Intake Total 290 582.5 1659.8 1684 Output Total 1000 150 Balance -710 432.5 1659.8 1684 Meds/Results Medications: Active Medications Generic Name Dose Route Start Last Admin Trade Name Freq PRN Reason Stop Dose Admin Acetaminophen 650 mg 10/11/24 20:25 10/17/24 12:32 Acetaminophen 325 Mg Tablet PO 650 mg Q4H PRN Administration Pain 1-3 or fever Bisacodyl 10 mg 10/12/24 15:11 Bisacodyl 10 Mg Suppository RECTAL DAILY PRN Constipation Cyanocobalamin 1,000 mcg 10/12/24 20:30 10/19/24 08:33 Cyanocobalamin Inj 1,000 Mcg/Ml Vial IM 11/02/24 09:01 1,000 mcg WEEKLY ALEXIS Administration Cyanocobalamin 1,000 mcg 10/17/24 09:00 10/24/24 08:25 Cyanocobalamin 1,000 Mcg Tablet PO 1,000 mcg QAM ALEXIS Administration Diltiazem HCl 120 mg 10/12/24 09:00 10/24/24 08:24 Diltiazem Hcl Cd 120 Mg Cap.24hr PO 120 mg DAILY ALEXIS Administration Donepezil HCl 10 mg 10/11/24 21:00 10/23/24 20:24 Donepezil Hcl 10 Mg Tablet PO 10 mg HS ALEXIS Administration Duloxetine HCl 60 mg 10/12/24 09:00 10/24/24 08:25 Duloxetine Hcl 60 Mg Capsule.Dr PO 60 mg DAILY ALEXIS Administration Fluticasone Propionate 2 spray 10/12/24 09:00 10/24/24 08:26 Fluticasone Propionate 0.05% Na Spr 16 Gm Btl (*Bkc) NASAL 2 spray DAILY ALEXIS Administration Levetiracetam 250 mg/ Dextrose 102.5 mls @ 430 mls/hr 10/22/24 21:00 10/24/24 08:22 IVPB 300 mls/hr Q12HR ALEXIS Administration Dextrose/Sodium Chloride 1,000 mls @ 60 mls/hr 10/22/24 15:45 10/24/24 01:55 Dextrose 5% Sodium Chloride 0.9% IV CONT 60 mls/hr .[id number] ALEXIS Administration Lamotrigine 100 mg 10/12/24 09:00 10/24/24 08:24 Lamotrigine 100 Mg Tablet PO 100 mg DAILY ALEXIS Administration Levetiracetam 250 mg 10/11/24 21:00 10/22/24 17:05 Levetiracetam 250 Mg Tablet PO Not Given Q12HR ALEXIS Lorazepam 0.5 mg 10/24/24 06:30 10/24/24 06:16 Lorazepam Inj (*Crx) 2 Mg/Ml Vial IV PUSH 0.5 mg TIDAC ALEXIS Administration Magnesium Oxide 400 mg 10/12/24 09:00 10/24/24 08:26 Magnesium Oxide 400 Mg Tablet PO 400 mg DAILY ALEXIS Administration Melatonin 3 mg 10/11/24 21:00 10/23/24 20:24 Melatonin 3 Mg Tablet PO 3 mg HS ALEXIS Administration Mirabegron 25 mg 10/12/24 09:00 10/24/24 08:25 Mirabegron 25 Mg Er Tablet PO 25 mg DAILY ALEXIS Administration Multivitamins/Calcium 1 tablet 10/12/24 09:00 10/24/24 08:26 Therapeutic Multivitamins/Minerals Tab (*Bkc) PO 1 tablet DAILY ALEXIS Administration Pantoprazole Sodium 40 mg 10/17/24 09:00 10/24/24 08:24 Pantoprazole 40 Mg Tablet PO 40 mg QAM ALEXIS Administration Polyethylene Glycol 17 gm 10/21/24 09:00 10/24/24 08:26 Polyethylene Glycol 3350 17 Gm Powd.Pack PO 17 gm BID ALEXIS Administration Prochlorperazine Edisylate 10 mg 10/12/24 14:58 10/12/24 21:19 Prochlorperazine Edisylate 10 Mg/2 Ml Vial IV PUSH 10 mg Q6H PRN Administration Nausea And Vomiting Senna/Docusate Sodium 1 tab 10/15/24 17:00 10/24/24 08:25 Senna/Docusate Sodium Tablet PO 1 tab BID ALEXIS Administration Radiology Results: ITS Impressions Head/Neck CTA 10/11/24 15:07 IMPRESSION: 1. 40% stenosis of the right carotid bulb relative to normal distal artery lumen diameter (NASCET criteria). 2. 40% stenosis of the left carotid bulb relative to normal distal artery lumen diameter. 3. 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 4. 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 No acute intracranial process or abnormally enhancing brain lesions. 5. Cerebral CT angiogram demonstrates no hemodynamically significant stenosis, aneurysm or thrombosis. Of note the majority of flow to the posterior cerebral arteries appears to be supplied from the bilateral internal carotid arteries via patent bilateral posterior communicating arteries which are significantly larger than the diminutive bilateral P1 segments. Abdomen/Pelvis CT 10/11/24 15:34 IMPRESSION: Possible mild fecal impaction. No CT findings of stercoral colitis. Otherwise, no acute abdominopelvic process detected. Brain MRI 10/14/24 16:29 IMPRESSION: No acute intracranial process. Abdomen X-Ray 10/15/24 13:23 IMPRESSION: 1. Fecal impaction of the colon and rectum. No obstruction. Head CT 10/15/24 13:37 Impression: No intracranial hemorrhage, mass, or acute infarct. Atrophy and chronic white matter changes, as above. Chest X-Ray 10/20/24 06:40 Impression: Clear lungs. Modified Barium Swallow 10/21/24 08:59 IMPRESSION: Patient tolerated regular consistency oral feedings in the upright position. Please correlate with speech pathologist findings and specific feeding recommendations. Labs Labs: Laboratory Results - last 24 hr 10/24/24 04:52 WBC 13.6 H RBC 3.25 L Hgb 9.7 L Hct 31.7 L MCV 97.5 MCH 29.8 MCHC 30.6 L RDW 15.2 H Plt Count 481 H MPV 9.3 Sodium 138 Potassium 3.5 Chloride 107 Carbon Dioxide 22 Anion Gap 9 BUN 13 Creatinine 0.93 Estim Creat Clear Calc 37 Estimated GFR 57 L Glucose 98 Calcium 9.3 Total Bilirubin 0.4 AST 44 H ALT 28 Alkaline Phosphatase 83 Total Protein 6.7 Albumin 3.7 Quality VTE Prophylaxis VTE prophylaxis: mechanical ordered -Patient's previous records reviewed on admission -ER notes reviewed in detail on admission -discussed all findings and current treatment plan with patient/Family/POA -Consultations reviewed for recommendations -Patient's disposition for safe discharge discussed with case monitor Dictation performed by [employer] / [employer] direct speech recognition software, therefore gis consultant variants and typographical errors may occur. Hospitalist MIPS Advance Care Plan I have confirmed that the patient's Advanced Care Plan is present, code status is documented, or surrogate decision maker is listed in patient medical record.: Yes Medication Reconciliation I have utilized all available resources to obtain, update and review the patients current medications (includes all prescriptions, OTC, herbals, cannabis, and nutritional supplements).: Yes The patient is not eligible for med reconciliation; the patient is in a emergent medical situation where delaying treatment would jeopardize the patients health.: No
--- NOTE | 2024-10-24 12:26 | WPDNEURCNPN ---
Assessment and Plan Assessment and plan (1) Dementia: Qualifiers: Dementia type: unspecified type Dementia behavioral disturbance: without behavioral disturbance Qualified Code(s): F03.90 - Unspecified dementia without behavioral disturbance Code(s): F03.90 - Unspecified dementia, unspecified severity, without behavioral disturbance, psychotic disturbance, mood disturbance, and anxiety Status: Chronic (2) Seizure disorder: Code(s): G40.909 - Epilepsy, unspecified, not intractable, without status epilepticus Status: Chronic (3) Schizoaffective disorder: Qualifiers: Schizoaffective disorder type: unspecified Qualified Code(s): F25.9 - Schizoaffective disorder, unspecified Code(s): F25.9 - Schizoaffective disorder, unspecified Status: Chronic (4) Paroxysmal atrial fibrillation: Code(s): I48.0 - Paroxysmal atrial fibrillation Status: Chronic (5) B12 deficiency: Code(s): E53.8 - Deficiency of other specified B group vitamins Status: Acute (6) Chronic kidney disease, stage 3: Code(s): N18.30 - Chronic kidney disease, stage 3 unspecified Status: Acute (7) Anemia due 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) Status: Acute (8) Occult GI bleeding: Code(s): R19.5 - Other fecal abnormalities Status: Acute Plan Her mental status may result from multiple metabolic problems that she has faced. She has had active GI bleeding and was found to active gastric ulcer. Her medical problems are being attended to. She has been here for almost 30 days. With regard to the seizures she is on a fairly low dose of levetiracetam is 250 mg twice a day addition to lamotrigine 100 mg daily. If she has any seizure we can certainly increase the dose of these medications. Lamotrigine may be more mood stabilizing and hence we can increase the dose 75 mg twice a day. I noted that she has been given supplement of vitamin B12 by injection once a week. I agree with the same. In addition we can add Namenda 5 mg a day the dose can be increased gradually up to 10 mg twice a day over the course of 1 month to help with the dementia was symptomatic treatment for metabolic problems are being done. Changes in mental status can also occur due to seizures and hence are ordered and EEG also. Consult date: 10/24/24 HPI: Kenton Wilhelm is a 83 year old female past medical history of dementia, essential hypertension, chronic constipation, diastolic heart failure, paroxysmal atrial fibrillation, seizure disorder, GERD and prior GI bleed due to AVM who presented to the ER via EMS On October 11, 2024. The patient known to have dementia and according to psychiatrist note she has been diagnosed to have a Schizoaffective disorder and now catatonia. I have been asked to see her with regard to increasing symptoms of dementia. Patient has had a stroke CVA or stroke 8 years ago for which she was taken to [facility]. There is also history of atrial fibrillation and she has been on Eliquis which is on hold on account having a GI bleed. She also carries diagnosis of seizure disorder pre she might have had a seizure recently however other unable to find and description of that. She has been in assisted for 8 years. In view of the GI bleed she underwent a upper GI endoscopy which shows acute gastric ulcer. Her serum B12 level was 234. CT angiogram of head and neck performed on admission has shown less than 50% narrowing in both internal carotid artery. An MRI of the brain was performed in May 2024 which has shown old infarct in the left hemisphere as well as in both cerebellum. Similar findings were noted on the more recent CT scan which did not show any acute or new findings. The patient unable to give much in the way of history. No family members were available at this time. According the nursing staff she has been significantly confused and seems to have variable symptoms on a daily basis. I noted the psychiatrist has suggested use of lorazepam and avoidance of antipsychotic. He also suggest to look for metabolic problems and state of hydration. 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 admitted with HGB 9.9 with downward trend, currently 5.9 receiving 2 units packed cells. 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, 2019 Thoracic compression fracture T10 Essential hypertension Osteoporosis Frequent urinary tract infections history of ESBL E coli infection March 2018 Seizure disorder Schizoaffective disorder Hyperlipidemia Depression Dementia Paroxysmal atrial fibrillation Surgical History Surgical History History of arthroscopy of left shoulder History of total left hip arthroplasty (2015) History of bladder suspension procedure History of hysterectomy Family History Family History Sibling Dementia Cerebrovascular accident Sibling Acute myocardial infarction Mother Cirrhosis Father Emphysema of lung Social History Social History Social History: Surrogate medical decision maker: Cameron Naranjo. Code status: DNR/DNI Smoking packs per day: 1 Smoking cigarettes per day: 20.0 Years smoked: 10 Smoking pack-years: 10.00 Smoking status: Former smoker Second hand tobacco smoke exposure: No Alcohol intake: never Substance use: never Substance use type: does not use Do You Feel Safe in your Home?: Yes Lack of Transportation: No Lack of Food: Never True Current Housing: I Have Housing Concerned About Future Housing: No Difficulty Paying Gas/Electric Bills: No Difficulty Paying for Meds: No Currently Unemployed: No Education: Grade School Difficulty w/ Childcare or Family Care: No Additional living arrangements comments: . Resident at [facility]. 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: No Agree to blood products: Yes Meds Home Medications and Allergies Home Medications ?Medication ?Instructions ?Recorded ?Confirmed ?Type cholecalciferol (vitamin D3) 1,250 50,000 unit PO WEEKLY 03/20/19 10/11/24 History mcg (50,000 unit) tablet donepezil 10 mg tablet 10 mg PO HS 03/20/19 10/11/24 History polyethylene glycol 3350 17 17 g PO DAILY PRN Constipation 03/20/19 10/11/24 History gram/dose oral powder (Miralax) duloxetine 60 mg capsule,delayed 60 mg PO DAILY 07/16/21 10/11/24 History release lamotrigine 100 mg tablet 100 mg PO DAILY 07/16/21 10/11/24 History levetiracetam 250 mg tablet 250 mg PO BID 07/16/21 10/11/24 History (Keppra) melatonin 3 mg tablet 3 mg PO HS 07/16/21 10/11/24 History fluticasone propionate 50 2 spray intranasal DAILY 04/05/22 10/11/24 History mcg/actuation nasal spray,suspension (Allergy Relief (fluticasone)) mirabegron 25 mg tablet,extended 25 mg PO DAILY 04/05/22 10/11/24 History release 24 hr (Myrbetriq) Marisol-Tussin 5 ml PO Q6H PRN Congestion 09/13/22 10/11/24 History acetaminophen 325 mg tablet 650 mg PO Q4H PRN Pain (Scale 09/13/22 10/11/24 History Score 1-3) magnesium oxide 1 tablet PO DAILY 09/13/22 10/11/24 History sennosides 8.6 mg-docusate sodium 1 tab-cap PO DAILY 06/06/23 10/11/24 History 50 mg tablet (Senna Plus) apixaban 5 mg tablet (Eliquis) 5 mg PO Q12HR #60 tabs 06/13/23 10/11/24 Rx diltiazem HCl 120 mg 120 mg PO DAILY #30 caps 06/13/23 10/11/24 Rx capsule,extended release 24 hr multivitamin with iron-mineral 1 tablet PO DAILY 08/31/24 10/11/24 History pantoprazole 40 mg tablet,delayed 40 mg PO Q12H 08/31/24 10/11/24 History release lorazepam 0.5 mg tablet 0.5 mg PO TID #1 tablet 09/06/24 10/11/24 Rx amlodipine 5 mg tablet 5 mg PO DAILY 10/11/24 10/11/24 History Allergies Allergy/AdvReac Type Severity Reaction Status Date / Time sertraline Allergy Severe Unknown Verified 10/12/24 11:43 hydromorphone Allergy Intermediate Unknown Verified 10/12/24 11:43 Vital Signs Vital Signs - 24 hr 10/23/24 14:00 10/23/24 20:00 10/23/24 20:13 Temperature 97.7 F 98.3 F Pulse Rate 74 85 Respiratory Rate 18 16 Blood Pressure 152/45 H 123/54 L Pulse Oximetry 98 98 Oxygen Delivery Room Air Fraction of Inspired Oxygen 10/23/24 21:34 10/24/24 04:29 10/24/24 08:39 Temperature 98.1 F Pulse Rate 60 78 Respiratory Rate 18 Blood Pressure 118/63 Pulse Oximetry 92 96 Oxygen Delivery Room Air Room Air Fraction of Inspired Oxygen 21 10/24/24 10:23 Temperature Pulse Rate Respiratory Rate Blood Pressure Pulse Oximetry Oxygen Delivery Room Air Fraction of Inspired Oxygen Exam Narrative: Fully conscious alert, no aphasia or dysarthria, patient is talking almost constantly at this time and does respond to my questions however there is some perseveration. Sometimes she cannot find the right words to express herself but many of the time she was able answer. Perform mental status examination in view of her current condition. She does seem to be able to hear me. Examination head and neck shows no evidence of external trauma. No carotid bruit. Cranial nerves pupils were equal and reacting. Visual huber not reliably tested since then error in counting fingers. Extraocular movements are intact. There is no facial asymmetry. Tongue was midline. Other cranial nerves within normal limits. No cogwheeling or involuntary movements are seen. Motor system shows normal power in both upper and lower limbs. Deep tendon reflexes did not show any significant asymmetry. No dyskinetic movements were noted. Results Labs 10/24/24 04:52 10/24/24 04:52 Labs: Short CBC 10/24/24 Range/Units 04:52 WBC 13.6 H (4.5-10.0) K/mm3 Hgb 9.7 L (12.0-15.0) g/dL Hct 31.7 L (37.0-47.0) % Plt Count 481 H (150-375) k/mm3 BMP 10/24/24 04:52 Sodium 138 Potassium 3.5 Chloride 107 Carbon Dioxide 22 BUN 13 Creatinine 0.93 Glucose 98 Calcium 9.3 Liver Function 10/24/24 Range/Units 04:52 Total Bilirubin 0.4 (0.2-1.3) mg/dL AST 44 H (14-36) U/L ALT 28 (6-35) U/L Alkaline Phosphatase 83 (38-126) U/L Albumin 3.7 (3.5-5.1) g/dL
[2024-10-24 14:00] VITALS: BP 124/73; PULSE 67; RESP 18; TEMP 36.8; O2SAT 97
--- NOTE | 2024-10-24 14:06 | PCNEURO ---
EEG was attempted. Pt was too restless for set up and tracing. Will attempt tomorrow AM
[2024-10-24 19:49] VITALS: BP 123/96; PULSE 87; RESP 22; TEMP 36.7; O2SAT 100
[2024-10-24 20:00] VITALS: O2SAT 100
[2024-10-24] MEDS: DONEPEZIL HCL 10 MG TABLET PO (22:20)
[2024-10-24] MEDS: MELATONIN 3 MG TABLET PO (22:20)
[2024-10-24] MEDS: MIRTAZAPINE 7.5 MG TABLET PO (22:20)
[2024-10-24] MEDS: lamoTRIgine 25 MG TABLET 75 MG PO (22:20)
[2024-10-25 03:54] VITALS: BP 124/53; PULSE 74; RESP 32; TEMP 36.7; O2SAT 90
[2024-10-25 05:00] VITALS: RESP 28; O2SAT 93
[2024-10-25 05:40] LABS: Hematocrit 25.6 % (37.0-47.0); Hemoglobin 7.8 g/dL (12.0-15.0); Mean Corpuscular HGB Conc 30.5 g/dl (32-36); Mean Corpuscular Volume 98.5 fl (80-100); Mean Platelet Volume 9.5 fl (7.4-10.4); Platelet Count Result 468 k/mm3 (150-375); Red Cell Distribution Width 15.3 % (11.5-14.5)
[2024-10-25 05:54] LABS: Alanine Aminotransferase 21 U/L (6-35); Albumin Level 3.3 g/dL (3.5-5.1); Alkaline Phosphatase 68 U/L (38-126); Anion Gap 7 mmol/L (4-12); Aspartate Amino Transferase 33 U/L (14-36); Bilirubin,Total 0.3 mg/dL (0.2-1.3); Blood Urea Nitrogen 30 mg/dL (7-17); Calcium 9.3 mg/dL (8.4-10.2); Carbon Dioxide 28 mmol/L (22-30); Chloride 105 mmol/L (98-107); Estimated CRCL calculation 40 ml/min; Estimated Glomerular Filt Rate > 60; Glucose 108 mg/dL (65-110); Potassium 3.7 mmol/L (3.4-5.0); Sodium 140 mmol/L (137-145); Total Protein 5.9 g/dL (6.3-8.2)
[2024-10-25] MEDS: LORazepam INJ (*CRX) 2 MG/ML VIAL 0.5 MG IV PUSH ×2 (06:40→12:08)
--- NOTE | 2024-10-25 07:49 | PCNEURO ---
Attempted EEG this AM. Unable to perform due to patient's current state. Will check back with nurse this afternoon.
[2024-10-25] MEDS: PANTOPRAZOLE SODIUM IV 40 MG VIAL IV PUSH (07:56)
[2024-10-25] MEDS: PROCHLORPERAZINE EDISYLATE 10 MG/2 ML VIAL IV PUSH (07:57)
[2024-10-25 08:17] LABS: Alveolar/Arterial O2 Gradient 333.7 mmHg; Base Excess ABG -0.1 mEq/l (+/-2.0); Fractional Inspired Oxygen 60 %; HCO3 ABG 23.8 mEq/l (22.0-26.0); Oxygen Content ABG 11.2 %vol (16.0-22.0); Oxygen Saturation ABG 89.8 % (95.0-100.0); PCO2 ABG 35.8 mmHg (35.0-45.0); PO2 ABG 54.7 mmHg (80.0-100.0); PO2 FiO2 Ratio Arterial Blood 0.91 %; Total Hemoglobin 9.1 g/dL (12.0-18.0); pH ABG 7.441 (7.350-7.450)
[2024-10-25 08:19] LABS: Device NON-REBREATHER MASK; Modified Allen's Test Pass; Oxyhemoglobin 86.8 % THb (90.0-100.0); Site Drawn RIGHT RADIAL
[2024-10-25 08:24] LABS: Hematocrit 25.5 % (37.0-47.0); Hemoglobin 7.7 g/dL (12.0-15.0)
--- NOTE | 2024-10-25 08:25 | PCRCNOTE ---
G delayed because the Doc, nurse, and lab were beside.
--- NOTE | 2024-10-25 08:34 | P.PNCROSS_ITS ---
Event Note Event Note Event Note: The nurse called me due to the patient low oxygen saturation and multiple episo scot of hematemesis this morning. According to the nurse, there was a plan to perform an EGD this morning. I repeated H&H and ordered ABG and Zosyn for possible aspiration pneumonia. During evaluation, the patient's oxygen needs have increased. The patient was saturating in the low 80s; she is on a 6-7 L nasal cannula. I ordered a non-rebreather, and currently, her saturation is in the 90s. I called POA, updated the status, and discussed comfort care/hospice due to multiple comorbid conditions and acute deterioration, possibly due to UGIB. POA reported that he would come within the hour and discuss the plan further. Discussed with route driver coin machines, who agrees with the plan. I am currently holding Zosyn and discussed it with a fellow hospitalist, Ms. Hart, who will further manage the patient. The patient is a high-risk candidate for EGD due to aspiration by EGD itself and for BiPAP for same reason.
[2024-10-25] MEDS: levETIRAcetam IV 250 MG in DEXTROSE 5% 100 ML 300 MG IVPB (10:50)
[2024-10-25] MEDS: MORPHINE SULFATE (*CRX) 2 MG/ML INJ IV PUSH (10:51)
--- NOTE | 2024-10-25 14:12 | P.DS_ITS ---
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: Code(s): F06.1 - Catatonic disorder due to known physiological condition Status: Acute (3) Anorexia: Code(s): R63.0 - Anorexia Status: Acute (4) Acute gastric ulcer: Code(s): K25.3 - Acute gastric ulcer without hemorrhage or perforation Status: Acute (5) Fecal impaction: Code(s): K56.41 - Fecal impaction Status: Acute (6) Iron deficiency anemia: Qualifiers: Iron deficiency anemia type: chronic blood loss Qualified Code(s): D50.0 - Iron deficiency anemia secondary to blood loss (chronic) Code(s): D50.9 - Iron deficiency anemia, unspecified Status: Acute (7) Paroxysmal atrial fibrillation: Code(s): I48.0 - Paroxysmal atrial fibrillation Status: Chronic (8) B12 deficiency: Code(s): E53.8 - Deficiency of other specified B group vitamins Status: Acute (9) Leukocytosis: Code(s): D72.829 - Elevated white blood cell count, unspecified Status: Acute (10) Vasovagal syncope: Code(s): R55 - Syncope and collapse Status: Resolved (11) Coffee ground emesis: Code(s): K92.0 - Hematemesis Status: Acute (12) Nausea & vomiting: Qualifiers: Vomiting type: unspecified Qualified Code(s): R11.2 - Nausea with vomiting, unspecified Code(s): R11.2 - Nausea with vomiting, unspecified Status: Acute (13) GI bleed: Qualifiers: GI bleed type/associated pathology: unspecified gastrointestinal hemorrhage type Qualified Code(s): K92.2 - Gastrointestinal hemorrhage, unspecified Code(s): K92.2 - Gastrointestinal hemorrhage, unspecified Status: Acute (14) Anemia due 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) Status: Acute (15) Respiratory failure with hypoxia: Code(s): J96.91 - Respiratory failure, unspecified with hypoxia Status: Acute (16) Aspiration into airway: Qualifiers: Encounter type: initial encounter Qualified Code(s): T17.908A - Unspecified foreign body in respiratory tract, part unspecified causing other injury, initial encounter Code(s): T17.908A - Unspecified foreign body in respiratory tract, part unspecified causing other injury, initial encounter Status: Inactive DS: Summary Hospital Course Reason for hospitalization: acute gastric ulcer/ fecal impaction/ vomiting/ syncope/ seizures/ aspiration into airway/ GI bleed/ acute respiratory failure with hypoxia Hospital Course: Admission: Patient was a 83-year-old female past medical history of dementia, essential hypertension, chronic constipation, diastolic heart failure, paroxysmal atrial fibrillation, seizure disorder, GERD and prior GI bleed due to AVM who presented to the ER via EMS from [facility] due to frightening the patient on the floor. halfway staff reported that they found the patient on the bathroom floor. Is unclear if she fell from the toilet her from a standing position. Patient has been having issues with constipation and had a small bowel movement earlier in the day that was hard. The patient was also reported to be having some abdominal pain and nausea and vomiting that had reportedly started on the . The patient's also reported that he felt the patient was slurring her words more than usual but he last saw her on t . However the patient had no other focal neurologic deficits noted in the ER. Patient has resided in a halfway for the last 8 years following a CVA and resultant deficits. At the time of evaluation by admitting physician the patient was alert oriented to self. She could not name the hospital or tell me that date or year. She cannot state her age. In the ED: Labs demonstrated normal white count in stable hemoglobin. Her creatinine was also stable but her BUN had doubled from baseline and UA was unremarkable. CTA of the head and neck demonstrated multiple areas of stenosis none of which were severe and old infarcts. CT of the abdomen pelvis demonstrated fecal impaction without evidence of stercoral colitis. A Colace enema was ordered at the time of my evaluation. The patient received the enema shortly thereafter. The nursing staff place the patient on the bedside commode and when they came back into the room the patient was unresponsive. She was having diarrheal stools. Patient personnel monitor was not picking up at the time of the event. The patient was bradycardic with palpable pulse around 50 per notes. Patient had some perioral cyanosis but normal pulse ox at 100%. Her blood pressures on initial evaluation were in the 110s over 40'sand repeat blood pressures were 130s over 60 and repeat heart rate was back up in the 80s to 90s. Patient had an episode concerning for brief seizure like activity and believed she wasn't getting her Keppra and Lamictal except for this morning. Keppra IV 500mg IV x1 given. Patient had not been eating much here mostly anywhere from 0-50%. [place] related to her dementia. Her mental status changes also related to dementia and not uncommon per family. Patient not responding to questions or following any commands. Unsure if this is failure to thrive vs psychiatric episode vs post seizure. There were no plans for feeding tube per previous notes which were further discussed with daughter peg tube. Patient was given Supplements and started on IV fluids Dextrose. Patient with n/v and dry coffee ground around mouth and on cheek on 10/12/2024. GI consulted and EGD done 10/12/24 showing a large hiatal hernia without obstruction and a single cratered acute benign ulcer measuring 12 mm was visualized in the fundus in the proximal part of the hiatal hernia. There is no visible vessel of active bleeding. The stomach at the body, cardia and fundus was normal with no ulcers or masses. The bulb and second portion of duodenum was normal with no ulcers or masses. Coffee grounds, Stool guaiac positive. Patient Eliquis was stopped and PPI BID started with full liquid diet and orders to advance as tolerated. Patient had n/v at the halfway likely due to fecal impaction. Her fall is likely secondary to vasovagal event. Patient received Colace enema after arriving to the medical floor and subsequently went unresponsive while on the commode and had large amount of hard stool output followed by looser stool. Patient did have transient bradycardia with the event but vitals and blood pressure returned to normal. Mental status returned to normal shortly thereafter. KUB /10 showing fecal impaction of the colon and rectum. Medications increased and enemas given with results. Patient then had suspicion of catatonia daughter reports previous history episode of 21 days, patient was not responding to questions or following verbal commands. Patient was transition patient to IV Ativan t.i.d. started to improve with 1st dose and consulted Psychiatry for further evaluation recommendations at which time they recommended to continue with the Ativan but can do p.r.n. as well as adding mirtazapine 7.5 mg nightly once the catatonia improves this can also clinic assistant appetite stimulation. Patient had overall improvement of her catatonia with medication and was alert back to her baseline and eating again. The following morning patient began to have nausea and vomiting of coffee ground emesis with a significant drop in her H&H with aspiration causing acute respiratory failure at which time patient was placed on 15L non-rebreather. Patient given antimetic and IVP PPI with consult GI placed. Patient did stop vomiting and H&H stabilized but patient remained unresponsive only moaning. I had a long discussion with patient family inlcuding the POA's regarding her guarded prognosis and multiple commodities and current code status of DNR/DNI. Family and POA's at that time requested comfrot care with hospice and patient was discharged to inpatient hospice care. Status at Discharge Functional status at discharge: bed bound Overall status at discharge: other (discharge to hospice) Time Spent with Patient Time attestation: Total time spent providing and/or coordinating discharge services: Time spent: Greater than 30 minutes Exam Const: General: in distress and uncomfortable Other: Acute respiratory distress, moaning HENMT: Mouth: Yes dry mucous membranes Neck: Neck: supple and no JVD Resp: Auscultation: diminished lung sounds Other: Tachypnea on 15L supplemental oxygen non-rebreather Cardio: Rate: tachycardic GI: GI Palp: Yes Soft to palpation Other: N/V with coffee ground emesis Skin: Other: Pale, clammy, cool to touch Neuro: Other: Unable to assess DS: Data Data Completed and Pending Labs on day of discharge: Labs from last 24 hours 10/25/24 10/25/24 10/25/24 08:07 08:02 05:08 WBC 13.0 H RBC 2.60 L Hgb 7.7 L 7.8 L Hct 25.5 L 25.6 L MCV 98.5 MCH 30.0 MCHC 30.5 L RDW 15.3 H Plt Count 468 H MPV 9.5 Puncture Site Right radial ABG pH 7.441 ABG pCO2 35.8 ABG pO2 54.7 L ABG PO2/FiO2 Ratio 0.91 ABG HCO3 23.8 ABG O2 Saturation 89.8 L ABG O2 Content 11.2 L ABG Base Excess -0.1 A-a Gradient 333.7 Oxyhemoglobin 86.8 L* Total Hemoglobin 9.1 L O2 Delivery Device Non-rebreather mask O2 Liters/Min 10.0 FiO2 60 Sodium 140 Potassium 3.7 Chloride 105 Carbon Dioxide 28 Anion Gap 7 BUN 30 H D Creatinine 0.86 Estim Creat Clear Calc 40 Estimated GFR > 60 Glucose 108 Calcium 9.3 Total Bilirubin 0.3 AST 33 ALT 21 Alkaline Phosphatase 68 Total Protein 5.9 L Albumin 3.3 L Imaging Radiologist's impression: CT Scan of the Chest without Contrast: Clinical Indication: Hypoxia, pneumonia Technique: Contiguous sections were acquired throughout the chest without intra venous contrast. Dose reduction technique was used on this scan by utilizing automated exposure control and iterative reconstruction technique. The dose- length product (DLP) was 209.71 mGy-cm. COMPARISON: 05/26/2024 Findings: There is no evidence of any significant mediastinal, hilar or axillary lymphadenopathy. The mediastinal soft tissues appear normal. There is no evidence of pleural or pericardial effusion. There is extensive right lower lobe consolidation. There is minimal involvement in the posterior right upper lobe. Left lung clear. Images through the upper abdomen reveal moderate hiatal hernia. Vertebroplasty of L1 present. There are additional compression fractures at T5, T6, T8, T9, T11, T12, and L2. Impression: Extensive right lower lobe pneumonia with more mild patchy involving the posterior right upper lobe. Numerous compression fractures in the spine, as detailed above. Moderate hiatal hernia. Radiology Results: ITS Impressions Head/Neck CTA 10/11/24 15:07 IMPRESSION: 1. 40% stenosis of the right carotid bulb relative to normal distal artery lumen diameter (NASCET criteria). 2. 40% stenosis of the left carotid bulb relative to normal distal artery lumen diameter. 3. 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 4. 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 No acute intracranial process or abnormally enhancing brain lesions. 5. Cerebral CT angiogram demonstrates no hemodynamically significant stenosis, aneurysm or thrombosis. Of note the majority of flow to the posterior cerebral arteries appears to be supplied from the bilateral internal carotid arteries via patent bilateral posterior communicating arteries which are significantly larger than the diminutive bilateral P1 segments. Abdomen/Pelvis CT 10/11/24 15:34 IMPRESSION: Possible mild fecal impaction. No CT findings of stercoral colitis. Otherwise, no acute abdominopelvic process detected. Brain MRI 10/14/24 16:29 IMPRESSION: No acute intracranial process. Abdomen X-Ray 10/15/24 13:23 IMPRESSION: 1. Fecal impaction of the colon and rectum. No obstruction. Head CT 10/15/24 13:37 Impression: No intracranial hemorrhage, mass, or acute infarct. Atrophy and chronic white matter changes, as above. Chest X-Ray 10/20/24 06:40 Impression: Clear lungs. Modified Barium Swallow 10/21/24 08:59 IMPRESSION: Patient tolerated regular consistency oral feedings in the upright position. Please correlate with speech pathologist findings and specific feeding recommendations. Discharge Plan Discharge Attending physician on discharge: Wyatt Laguna Consulting providers: Kehinde Mcbride; Keshav See; Kiran Rascon; Vladimir Sosa; Roselia Gallegos; Magaly Bermudez; Mary Kaur; Britt Morales; Mark Davis; Alyssia Long; Skye Garcia; Harika Greer; Jose Roberto Coker; Woody Caal; Gerald Oconnor; Juan Chun; Aniket Cruz Discharging Clinician: Hailey Reyes Anticipated Discharge Date/Time: 10/25/24 14:19 Patient Disposition: Hospice [facility] Inpatient Discharge Instructions: Discharge to hospice Patient Instructions: Antibiotic Form, Apixaban (By mouth) Patient Language: Divehi Stand Alone Forms: General Discharge Information Follow-up/Referrals: Maddy Kemp [Other] (F/u with PCP in 3-5 days ) Keshav See MD [Physician] - (F/u with GI as instructed ) Date of admission: 10/12/24 14:30 Primary Care Provider: Maddy Kemp Admitting Provider: Wyatt Laguna Attending physician on admission: Hailey Reyes Condition: Terminal Quality VTE Prophylaxis VTE prophylaxis: mechanical ordered -Patient's previous records reviewed on admission -ER notes reviewed in detail on admission -discussed all findings and current treatment plan with patient/Family/POA -Consultations reviewed for recommendations -Patient's disposition for safe discharge discussed with case monitor Dictation performed by [employer] direct speech recognition software, therefore smoking pipe repairer variants and typographical errors may occur. Hospitalist MIPS Heart Failure (Exclusion) Patient has history of Heart Transplant or Left Ventricular Assistive Device?: No IF YES, STOP HERE Heart Failure (Qualifier) Patient has current or prior documentation of LVEF less than or equal to 40%, or mod/servere depressed LVSF?: No IF NO, STOP HERE
--- NOTE | 2024-10-25 16:44 | PN_ITS ---
This report was moved to the correct visit on 10/28/2024. The original report was signed by Jose Roberto Coker MD on 10/25/24 [id number]. Progress Note: A&P Assessment and Plan (1) GI bleed: Qualifiers: GI bleed type/associated pathology: unspecified gastrointestinal hemorrhage type Qualified Code(s): K92.2 - Gastrointestinal hemorrhage, unspecified Code(s): K92.2 - Gastrointestinal hemorrhage, unspecified Status: Acute Assessment and Plan: another episode of GIB with more decompensation, also respiratory distress requiring more oxygen, lethargic I offered to repeat EGD but family decided hospice care given further deterioration (2) Nausea & vomiting: Qualifiers: Vomiting type: unspecified Qualified Code(s): R11.2 - Nausea with vomiting, unspecified Code(s): R11.2 - Nausea with vomiting, unspecified Status: Acute (3) Coffee ground emesis: Code(s): K92.0 - Hematemesis Status: Acute Assessment and Plan: had recent gastric ulcer (4) Gastric ulcer: Code(s): K25.9 - Gastric ulcer, unspecified as acute or chronic, without hemorrhage or perforation Status: Acute (5) Anemia due 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) Status: Acute (6) Acute metabolic encephalopathy: Code(s): G93.41 - Metabolic encephalopathy Status: Acute (7) Respiratory failure with hypoxia: Code(s): J96.91 - Respiratory failure, unspecified with hypoxia Status: Acute Subjective Date/time seen: 10/25/24 10:12 Interval history: I was called to evaluate this patient early this morning after she had coffee ground emesis, became more lethargic (Dr See saw this patient few days ago when she had EGD) Review of Systems Review of Systems: All systems reviewed & are unremarkable except as noted in HPI and below Exam Const: Other: looks sick, on oxygen HENMT: Face/Nose/Sinus: Normal nares present Eyes: General: appearance normal, both eyes and all related structures Neck: Neck: supple Resp: Auscultation: diminished lung sounds Cardio: Rate: regular rate GI: GI Palp: Yes Soft to palpation Skin: General skin exam: normal color Neuro: Other: awake but lethargic Objective Data Vital Signs Vital Signs: Vital Signs - 24 hr 10/25/2513:37 Temperature 100 F H Pulse Rate 113 H Respiratory Rate 22 H Blood Pressure 115/53 L Pulse Oximetry 100 Meds/Results Medications: Active Medications Generic Name Dose Route Start Last Admin Trade Name Freq PRN Reason Stop Dose Admin Artificial Tears 0 drop 10/25/24 13:10 Artificial Tears Ophth Soln 15 Ml Bottle EACH EYE Q12H PRN Dry Eye(s) Bisacodyl 10 mg 10/25/24 13:10 Bisacodyl 10 Mg Suppository RECTAL DAILY PRN Constipation Glycopyrrolate 0.1 mg 10/25/24 13:10 Glycopyrrolate Inj (*Sp) 0.2 Mg/Ml Vial IV PUSH Q4H PRN secretions Morphine Sulfate 50 mg/ Sodium 100 mls @ 2 mls/hr 10/25/24 14:00 10/25/24 14:17 Chloride IV CONT 2 mls/hr .Q24H ALEXIS Administration Levetiracetam 500 mg in 100 mls @ 400 mls/hr 10/25/24 21:00 Keppra Iv IVPB Q12HR ALEXIS Lorazepam 1 mg 10/25/24 13:10 10/25/24 16:25 Lorazepam Inj (*Crx) 2 Mg/Ml Vial IV PUSH 1 mg Q4H PRN Administration ANXIETY/RESTLESSNESS Morphine Sulfate 2 mg 10/25/24 13:10 10/25/24 16:25 Morphine Sulfate (*Crx) 2 Mg/Ml Inj IV PUSH 2 mg Q2H PRN Administration PAIN/DYSPNEA Prochlorperazine Edisylate 10 mg 10/25/24 13:10 Prochlorperazine Edisylate 10 Mg/2 Ml Vial IV PUSH Q6H PRN Nausea And Vomiting Please be advised this is a medical document. It is intended for [id number] communication. It is written in medical language and may contain unfamiliar abbreviations or verbiage. Medical documents are intended to carry relevant information, facts as evident, and the clinical opinion of the practitioner at the time of the encounter. This report may have been done utilizing a voice recognition system. Attempts have been made to correct errors. However, there may be uncorrected grammatical, spelling, and recognition errors present. The file time of this note does not necessarily represent the time the patient was seen. Report Initialized date/time: Jose Roberto Coker MD 10/25/241643 Electronically signed by: Jose Roberto Coker MD 10/25/240
== END 2024-10-25 12:20 | disposition hospice, inpatient (51) | DRG 377 ==
LOC: ANHED 16:16 → ANH2MED 16:58
PROVIDERS: Internal Medicine; Internal Medicine Gastroenterology; Nurse Practitioner Acute Care; Nurse Practitioner Family; Registered Nurse; Admitting Provider General Practice; Emergency Provider Emergency Medicine; Visit Provider Nurse Practitioner Family
PROC: 0DJ08ZZ Inspection of Upper Intestinal Tract, Via Natural or Artificial Opening Endoscopic (ICD-10-PCS; principal; 2024-10-12 11:00)
DX: K25.0 Acute gastric ulcer with hemorrhage (principal); G93.41 Metabolic encephalopathy; J69.0 Pneumonitis due to inhalation of food and vomit; J96.01 Acute respiratory failure with hypoxia; I50.32 Chronic diastolic (congestive) heart failure; I13.0 Hypertensive heart and chronic kidney disease with heart failure and stage 1 through stage 4 chronic kidney disease, or unspecified chronic kidney disease; D62 Acute posthemorrhagic anemia; R55 Syncope and collapse; K92.0 Hematemesis; T17.908A Unspecified foreign body in respiratory tract, part unspecified causing other injury, initial encounter; K56.41 Fecal impaction; K44.9 Diaphragmatic hernia without obstruction or gangrene; R47.81 Slurred speech; N18.30 Chronic kidney disease, stage 3 unspecified; I48.0 Paroxysmal atrial fibrillation; F03.90 Unspecified dementia, unspecified severity, without behavioral disturbance, psychotic disturbance, mood disturbance, and anxiety; E78.5 Hyperlipidemia, unspecified; E86.1 Hypovolemia; F25.9 Schizoaffective disorder, unspecified; G40.909 Epilepsy, unspecified, not intractable, without status epilepticus; R63.0 Anorexia; K55.20 Angiodysplasia of colon without hemorrhage; Z20.822 Contact with and (suspected) exposure to COVID-19; M81.0 Age-related osteoporosis without current pathological fracture; I35.0 Nonrheumatic aortic (valve) stenosis; R13.10 Dysphagia, unspecified; D72.829 Elevated white blood cell count, unspecified; K21.9 Gastro-esophageal reflux disease without esophagitis; W19.XXXA Unspecified fall, initial encounter; Z66 Do not resuscitate; E53.8 Deficiency of other specified B group vitamins; Z79.01 Long term (current) use of anticoagulants; Z96.642 Presence of left artificial hip joint; Z90.710 Acquired absence of both cervix and uterus; Z86.16 Personal history of COVID-19; Z86.73 Personal history of transient ischemic attack (TIA), and cerebral infarction without residual deficits
CPT/HCPCS: 36415; 36430; 36600; 70450; 70496; 70498; 70553; 71045; 71250; 74018; 74177; 80048; 80053; 80069; 81001; 81003; 82274; 82607; 82728; 82746; 82747; 82805; 82948; 83540; 83550; 83690; 83735; 83880; 84145; 84443; 84484; 85014; 85018; 85025; 85027; 85055; 85610; 85730; 86850; 86900; 86901; 86923; 87040; 87637; 92610; 92611; 93005; 95816; 96361; 96374; 97110; 97162; 97166; 97530; 97535; 99285; A9270; A9579; G0378; J0780; J1953; J2003; J2060; J2270; J2405; J2470; J2704; J3420; J7030; J7042; J7050; J7120; P9016; Q9967

== ENCOUNTER 2024-10-25 12:21 | HOS | payer OTHER, MEDICARE, SELFPAY ==
--- NOTE | 2024-10-25 13:03 | PCNEURO ---
Pt being discharged and put on hospice. EEG being cancelled per nursing staff.
[2024-10-25] MEDS: MORPHINE SULFATE INJ (*CRX) 50 MG in SODIUM CHLORIDE 0.9% IV 95 ML IV CONT (14:17)
[2024-10-25 14:37] VITALS: BP 115/53; PULSE 113; RESP 22; TEMP 37.7; O2SAT 100
--- NOTE | 2024-10-25 15:50 | PC.NURSE ---
Transferred to room 318 per hospital bed.
[2024-10-25 16:00] VITALS: PULSE 113; RESP 22; O2SAT 100
[2024-10-25 16:11] VITALS: BMI 27.8
--- NOTE | 2024-10-25 16:21 | P.HP_ITS ---
H&P: HPI History of Present Illness Date/Time: 10/25/24 16:21 Chief Complaint: Uncontrolled pain, dyspnea Narrative: 83-year-old female admitted October 11 with acute on chronic gastrointestinal bleeding. She had metabolic encephalopathy associated with that. She had hematemesis and developed aspiration pneumonia. Her chronic dysphagia has worsened. She is unable to eat. Because of her multiple comorbidities advanced age and inability live independently her family opted for inpatient hospice service for control of dyspnea and discomfort. Note that on 10/12 EGD showed acute gastric ulcer. 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 admitted with HGB 9.9 with downward trend, currently 5.9 receiving 2 units packed cells. 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, 2019 Thoracic compression fracture T10 Essential hypertension Osteoporosis Frequent urinary tract infections history of ESBL E coli infection March 2018 Seizure disorder Schizoaffective disorder Hyperlipidemia Depression Dementia Paroxysmal atrial fibrillation Surgical History Surgical History History of arthroscopy of left shoulder History of total left hip arthroplasty (2015) History of bladder suspension procedure History of hysterectomy Family History Family History Sibling Dementia Cerebrovascular accident Sibling Acute myocardial infarction Mother Cirrhosis Father Emphysema of lung Social History Social History (Updated 10/25/24 @ 16:22 by Pedro Mello MD) Social History: Surrogate medical decision maker: Cameron Naranjo. Code status: DNR Smoking packs per day: 1 Smoking cigarettes per day: 20.0 Years smoked: 10 Smoking pack-years: 10.00 Smoking status: Former smoker Second hand tobacco smoke exposure: No Alcohol intake: never Substance use: never Substance use type: does not use Do You Feel Safe in your Home?: Yes Lack of Transportation: No Lack of Food: Never True Current Housing: I Have Housing Concerned About Future Housing: No Difficulty Paying Gas/Electric Bills: No Difficulty Paying for Meds: No Currently Unemployed: No Education: Grade School Difficulty w/ Childcare or Family Care: No Additional living arrangements comments: . Resident at [facility]. 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: No Agree to blood products: Yes Meds Home Medications and Allergies Home Medications ?Medication ?Instructions ?Recorded ?Confirmed ?Type cholecalciferol (vitamin D3) 1,250 50,000 unit PO WEEKLY 03/20/19 10/11/24 History mcg (50,000 unit) tablet donepezil 10 mg tablet 10 mg PO HS 03/20/19 10/11/24 History polyethylene glycol 3350 17 17 g PO DAILY PRN Constipation 03/20/19 10/11/24 History gram/dose oral powder (Miralax) duloxetine 60 mg capsule,delayed 60 mg PO DAILY 07/16/21 10/11/24 History release lamotrigine 100 mg tablet 100 mg PO DAILY 07/16/21 10/11/24 History levetiracetam 250 mg tablet 250 mg PO BID 07/16/21 10/11/24 History (Keppra) melatonin 3 mg tablet 3 mg PO HS 07/16/21 10/11/24 History fluticasone propionate 50 2 spray intranasal DAILY 04/05/22 10/11/24 History mcg/actuation nasal spray,suspension (Allergy Relief (fluticasone)) mirabegron 25 mg tablet,extended 25 mg PO DAILY 04/05/22 10/11/24 History release 24 hr (Myrbetriq) Marisol-Tussin 5 ml PO Q6H PRN Congestion 09/13/22 10/11/24 History acetaminophen 325 mg tablet 650 mg PO Q4H PRN Pain (Scale 09/13/22 10/11/24 History Score 1-3) magnesium oxide 1 tablet PO DAILY 09/13/22 10/11/24 History sennosides 8.6 mg-docusate sodium 1 tab-cap PO DAILY 06/06/23 10/11/24 History 50 mg tablet (Senna Plus) apixaban 5 mg tablet (Eliquis) 5 mg PO Q12HR #60 tabs 06/13/23 10/11/24 Rx diltiazem HCl 120 mg 120 mg PO DAILY #30 caps 06/13/23 10/11/24 Rx capsule,extended release 24 hr multivitamin with iron-mineral 1 tablet PO DAILY 08/31/24 10/11/24 History pantoprazole 40 mg tablet,delayed 40 mg PO Q12H 08/31/24 10/11/24 History release lorazepam 0.5 mg tablet 0.5 mg PO TID #1 tablet 09/06/24 10/11/24 Rx amlodipine 5 mg tablet 5 mg PO DAILY 10/11/24 10/11/24 History Allergies Allergy/AdvReac Type Severity Reaction Status Date / Time sertraline Allergy Severe Unknown Verified 10/12/24 11:43 hydromorphone Allergy Intermediate Unknown Verified 10/12/24 11:43 Vital Signs Vital Signs - 24 hr 10/25/24 14:37 Temperature 100 F H Pulse Rate 113 H Respiratory Rate 22 H Blood Pressure 115/53 L Pulse Oximetry 100 Exam Narrative: HEENT: Chronically ill-appearing elderly female lying in hospital bed his mildly tachypneic but otherwise in no acute distress NECK: No JVD CHEST: Coarse breath sounds throughout with scattered rhonchi HEART: NL S1/S2, regular, no murmur ABDOMEN: BS hypoactive, soft, nontender, no mass, no bruits EXTREMITIES: No edema NEUROLOGIC: CN intact and symmetric to inspection. MUSCULOSKELETAL: No gross deformity to visual inspection PSYCH: Unresponsive to verbal or tactile stimuli Assessment and Plan Assessment and plan (1) Hospice care: Code(s): Z51.5 - Encounter for palliative care Status: Acute Assessment and Plan: * Meets inpatient hospice criteria due to requiring continuous IV morphine for control of dyspnea and discomfort and restlessness * P.r.n. palliative regimen ordered * 10/25/2024: Discussed care prognosis with daughter at bedside (2) Respiratory failure with hypoxia: Code(s): J96.91 - Respiratory failure, unspecified with hypoxia Status: Acute (3) Pneumonia: Code(s): J18.9 - Pneumonia, unspecified organism Status: Acute (4) Seizure disorder: Code(s): G40.909 - Epilepsy, unspecified, not intractable, without status epilepticus Status: Chronic (5) Dementia: Qualifiers: Alzheimer's disease onset: late onset Dementia behavioral or psychological symptom: with other behavioral disturbance Dementia severity: moderate Dementia type: Alzheimer's Qualified Code(s): G30.1 - Alzheimer's disease with late onset; F02.B18 - Dementia in other diseases classified elsewhere, moderate, with other behavioral disturbance Code(s): F03.90 - Unspecified dementia, unspecified severity, without behavioral disturbance, psychotic disturbance, mood disturbance, and anxiety Status: Acute (6) Delirium due to general medical condition: Code(s): F05 - Delirium due to known physiological condition Status: Acute (7) Anemia due 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) Status: Acute (8) Chronic kidney disease, stage 3: Code(s): N18.30 - Chronic kidney disease, stage 3 unspecified Status: Acute (9) Acute upper GI bleed: Code(s): K92.2 - Gastrointestinal hemorrhage, unspecified Status: Acute (10) Dysphagia, oropharyngeal: Code(s): R13.12 - Dysphagia, oropharyngeal phase Status: Acute (11) Acute gastric ulcer: Code(s): K25.3 - Acute gastric ulcer without hemorrhage or perforation Status: Acute
[2024-10-25] MEDS: MORPHINE SULFATE (*CRX) 2 MG/ML INJ IV PUSH (16:25)
[2024-10-25] MEDS: LORazepam INJ (*CRX) 2 MG/ML VIAL 1 MG IV PUSH (16:25)
--- NOTE | 2024-10-25 16:40 | P.PNGI_ITS ---
Progress Note: A&P Assessment and Plan (1) GI bleed: Qualifiers: GI bleed type/associated pathology: unspecified gastrointestinal hemorrhage type Qualified Code(s): K92.2 - Gastrointestinal hemorrhage, unspecified Code(s): K92.2 - Gastrointestinal hemorrhage, unspecified Status: Acute Assessment and Plan: another episode of GIB with more decompensation, also respiratory distress requiring more oxygen, lethargic I offered to repeat EGD but family decided hospice care given further deterioration (2) Nausea & vomiting: Qualifiers: Vomiting type: unspecified Qualified Code(s): R11.2 - Nausea with vomiting, unspecified Code(s): R11.2 - Nausea with vomiting, unspecified Status: Acute (3) Coffee ground emesis: Code(s): K92.0 - Hematemesis Status: Acute Assessment and Plan: had recent gastric ulcer (4) Gastric ulcer: Code(s): K25.9 - Gastric ulcer, unspecified as acute or chronic, without hemorrhage or perforation Status: Acute (5) Anemia due 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) Status: Acute (6) Acute metabolic encephalopathy: Code(s): G93.41 - Metabolic encephalopathy Status: Acute (7) Respiratory failure with hypoxia: Code(s): J96.91 - Respiratory failure, unspecified with hypoxia Status: Acute Subjective Date/time seen: 10/25/24 10:12 Interval history: I was called to evaluate this patient early this morning after she had coffee ground emesis, became more lethargic (Dr See saw this patient few days ago whe n she had EGD) Review of Systems Review of Systems: All systems reviewed & are unremarkable except as noted in HPI and below Exam Const: Other: looks sick, on oxygen HENMT: Face/Nose/Sinus: Normal nares present Eyes: General: appearance normal, both eyes and all related structures Neck: Neck: supple Resp: Auscultation: diminished lung sounds Cardio: Rate: regular rate GI: GI Palp: Yes Soft to palpation Skin: General skin exam: normal color Neuro: Other: awake but lethargic Objective Data Vital Signs Vital Signs: Vital Signs - 24 hr 10/25/24 14:37 Temperature 100 F H Pulse Rate 113 H Respiratory Rate 22 H Blood Pressure 115/53 L Pulse Oximetry 100 Meds/Results Medications: Active Medications Generic Name Dose Route Start Last Admin Trade Name Freq PRN Reason Stop Dose Admin Artificial Tears 0 drop 10/25/24 13:10 Artificial Tears Ophth Soln 15 Ml Bottle EACH EYE Q12H PRN Dry Eye(s) Bisacodyl 10 mg 10/25/24 13:10 Bisacodyl 10 Mg Suppository RECTAL DAILY PRN Constipation Glycopyrrolate 0.1 mg 10/25/24 13:10 Glycopyrrolate Inj (*Sp) 0.2 Mg/Ml Vial IV PUSH Q4H PRN secretions Morphine Sulfate 50 mg/ Sodium 100 mls @ 2 mls/hr 10/25/24 14:00 10/25/24 14:17 Chloride IV CONT 2 mls/hr .Q24H ALEXIS Administration Levetiracetam 500 mg in 100 mls @ 400 mls/hr 10/25/24 21:00 Keppra Iv IVPB Q12HR ALEXIS Lorazepam 1 mg 10/25/24 13:10 10/25/24 16:25 Lorazepam Inj (*Crx) 2 Mg/Ml Vial IV PUSH 1 mg Q4H PRN Administration ANXIETY/RESTLESSNESS Morphine Sulfate 2 mg 10/25/24 13:10 10/25/24 16:25 Morphine Sulfate (*Crx) 2 Mg/Ml Inj IV PUSH 2 mg Q2H PRN Administration PAIN/DYSPNEA Prochlorperazine Edisylate 10 mg 10/25/24 13:10 Prochlorperazine Edisylate 10 Mg/2 Ml Vial IV PUSH Q6H PRN Nausea And Vomiting
[2024-10-25 20:00] VITALS: PULSE 99; RESP 14; O2SAT 100
[2024-10-25 20:42] VITALS: BP 147/77; PULSE 99; RESP 14; TEMP 36.7; O2SAT 100
[2024-10-25] MEDS: levETIRAcetam 500MG/NACL 100ML 500 MG/100 ML BAG 400 MG IVPB (21:43)
[2024-10-26] MEDS: MORPHINE SULFATE (*CRX) 2 MG/ML INJ IV PUSH ×3 (02:17→14:32)
--- NOTE | 2024-10-26 08:48 | PM.IMPN ---
Subjective Date/time seen: 10/26/24 08:48 Objective Data Vital Signs Vital Signs: Vital Signs - 24 hr 10/25/24 14:37 10/25/24 16:00 10/25/24 20:00 Temperature 100 F H Pulse Rate 113 H 113 H 99 Respiratory Rate 22 H 22 H 14 Blood Pressure 115/53 L Pulse Oximetry 100 100 100 Oxygen Delivery Nasal Cannula Nasal Cannula Oxygen Flow Rate 5 5 10/25/24 20:42 Temperature 98.0 F Pulse Rate 99 Respiratory Rate 14 Blood Pressure 147/77 H Pulse Oximetry 100 Oxygen Delivery Oxygen Flow Rate Intake/Output Intake/Output: Intake & Output 10/23/24 10/24/24 10/25/24 10/26/24 23:59 23:59 23:59 23:59 Intake Total 100 Output Total 200 Balance 100 -200 Meds/Results Medications: Active Medications Generic Name Dose Route Start Last Admin Trade Name Freq PRN Reason Stop Dose Admin Artificial Tears 0 drop 10/25/24 13:10 Artificial Tears Ophth Soln 15 Ml Bottle EACH EYE Q12H PRN Dry Eye(s) Bisacodyl 10 mg 10/25/24 13:10 Bisacodyl 10 Mg Suppository RECTAL DAILY PRN Constipation Glycopyrrolate 0.1 mg 10/25/24 13:10 Glycopyrrolate Inj (*Sp) 0.2 Mg/Ml Vial IV PUSH Q4H PRN secretions Morphine Sulfate 50 mg/ Sodium 100 mls @ 2 mls/hr 10/25/24 14:00 10/25/24 14:17 Chloride IV CONT 2 mls/hr .Q24H ALEXIS Administration Levetiracetam 500 mg in 100 mls @ 400 mls/hr 10/25/24 21:00 10/25/24 21:58 Keppra Iv IVPB Infused Q12HR ALEXIS Infusion Lorazepam 1 mg 10/25/24 13:10 10/25/24 16:25 Lorazepam Inj (*Crx) 2 Mg/Ml Vial IV PUSH 1 mg Q4H PRN Administration ANXIETY/RESTLESSNESS Morphine Sulfate 2 mg 10/25/24 13:10 10/26/24 02:17 Morphine Sulfate (*Crx) 2 Mg/Ml Inj IV PUSH 2 mg Q2H PRN Administration PAIN/DYSPNEA Prochlorperazine Edisylate 10 mg 10/25/24 13:10 Prochlorperazine Edisylate 10 Mg/2 Ml Vial IV PUSH Q6H PRN Nausea And Vomiting
[2024-10-26] MEDS: levETIRAcetam 500MG/NACL 100ML 500 MG/100 ML BAG 400 MG IVPB ×2 (09:00→22:07)
[2024-10-26] MEDS: GLYCOPYRROLATE INJ (*SP) 0.2 MG/ML VIAL 0.1 MG IV PUSH (11:38)
[2024-10-26 12:35] VITALS: BP 132/98; PULSE 58; RESP 22; TEMP 36.3; O2SAT 87
--- NOTE | 2024-10-26 13:30 | P.PNIM_ITS ---
Progress Note: A&P Assessment and Plan (1) Hospice care: Code(s): Z51.5 - Encounter for palliative care Status: Acute Assessment and Plan: * Meets inpatient hospice criteria due to requiring continuous IV morphine for control of dyspnea and discomfort and restlessness * P.r.n. palliative regimen ordered * 10/25/2024: Discussed care prognosis with daughter at bedside * 10/26/2024: Febrile overnight, irregular HR, now hypothermic, declining; discussed with daughter at bedside (2) Respiratory failure with hypoxia: Code(s): J96.91 - Respiratory failure, unspecified with hypoxia Status: Acute (3) Pneumonia: Code(s): J18.9 - Pneumonia, unspecified organism Status: Acute (4) Seizure disorder: Code(s): G40.909 - Epilepsy, unspecified, not intractable, without status epilepticus Status: Chronic (5) Dementia: Qualifiers: Dementia type: Alzheimer's Alzheimer's disease onset: late onset Dementia severity: moderate Dementia behavioral or psychological symptom: with other behavioral disturbance Qualified Code(s): G30.1 - Alzheimer's disease with late onset; F02.B18 - Dementia in other diseases classified elsewhere, moderate, with other behavioral disturbance Code(s): F03.90 - Unspecified dementia, unspecified severity, without behavioral disturbance, psychotic disturbance, mood disturbance, and anxiety Status: Acute (6) Delirium due to general medical condition: Code(s): F05 - Delirium due to known physiological condition Status: Acute (7) Anemia due 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) Status: Acute (8) Chronic kidney disease, stage 3: Code(s): N18.30 - Chronic kidney disease, stage 3 unspecified Status: Acute (9) Acute upper GI bleed: Code(s): K92.2 - Gastrointestinal hemorrhage, unspecified Status: Acute (10) Dysphagia, oropharyngeal: Code(s): R13.12 - Dysphagia, oropharyngeal phase Status: Acute (11) Acute gastric ulcer: Code(s): K25.3 - Acute gastric ulcer without hemorrhage or perforation Status: Acute Subjective Date/time seen: 10/26/24 13:31 Interval history: Required PRN morphine and Robinul overnight due to coughing. Review of Systems Review of Systems: ROS unobtainable: Yes unobtainable due to medical condition Exam Narrative: HEENT: Chronically ill-appearing elderly female lying in hospital bed his mildly tachypneic but otherwise in no acute distress NECK: No JVD CHEST: Coarse breath sounds throughout with scattered rhonchi HEART: NL S1/S2, irregular, no murmur ABDOMEN: BS hypoactive, soft, nontender, no mass, no bruits EXTREMITIES: No edema, feet and hands cool NEUROLOGIC: CN intact and symmetric to inspection. MUSCULOSKELETAL: No gross deformity to visual inspection PSYCH: Unresponsive to verbal or tactile stimuli Objective Data Vital Signs Vital Signs: Vital Signs - 24 hr 10/25/24 14:37 10/25/24 16:00 10/25/24 20:00 Temperature 100 F H Pulse Rate 113 H 113 H 99 Respiratory Rate 22 H 22 H 14 Blood Pressure 115/53 L Pulse Oximetry 100 100 100 Oxygen Delivery Nasal Cannula Nasal Cannula Oxygen Flow Rate 5 5 10/25/24 20:42 10/26/24 09:00 10/26/24 12:35 Temperature 98.0 F 97.4 F L Pulse Rate 99 58 L Respiratory Rate 14 22 H Blood Pressure 147/77 H 132/98 H Pulse Oximetry 100 87 L Oxygen Delivery Nasal Cannula Oxygen Flow Rate 4 Intake/Output Intake/Output: Intake & Output 10/23/24 10/24/24 10/25/24 10/26/24 23:59 23:59 23:59 23:59 Intake Total 100 Output Total 200 Balance 100 -200 Meds/Results Medications: Active Medications Generic Name Dose Route Start Last Admin Trade Name Freq PRN Reason Stop Dose Admin Artificial Tears 0 drop 10/25/24 13:10 Artificial Tears Ophth Soln 15 Ml Bottle EACH EYE Q12H PRN Dry Eye(s) Bisacodyl 10 mg 10/25/24 13:10 Bisacodyl 10 Mg Suppository RECTAL DAILY PRN Constipation Glycopyrrolate 0.1 mg 10/25/24 13:10 10/26/24 11:38 Glycopyrrolate Inj (*Sp) 0.2 Mg/Ml Vial IV PUSH 0.1 mg Q4H PRN Administration secretions Morphine Sulfate 50 mg/ Sodium 100 mls @ 2 mls/hr 10/25/24 14:00 10/25/24 14:17 Chloride IV CONT 2 mls/hr .Q24H ALEXIS Administration Levetiracetam 500 mg in 100 mls @ 400 mls/hr 10/25/24 21:00 10/26/24 09:00 Keppra Iv IVPB 400 mls/hr Q12HR ALEXIS Administration Lorazepam 1 mg 10/25/24 13:10 10/25/24 16:25 Lorazepam Inj (*Crx) 2 Mg/Ml Vial IV PUSH 1 mg Q4H PRN Administration ANXIETY/RESTLESSNESS Morphine Sulfate 2 mg 10/25/24 13:10 10/26/24 11:37 Morphine Sulfate (*Crx) 2 Mg/Ml Inj IV PUSH 2 mg Q2H PRN Administration PAIN/DYSPNEA Prochlorperazine Edisylate 10 mg 10/25/24 13:10 Prochlorperazine Edisylate 10 Mg/2 Ml Vial IV PUSH Q6H PRN Nausea And Vomiting
[2024-10-26] MEDS: MORPHINE SULFATE INJ (*CRX) 50 MG in SODIUM CHLORIDE 0.9% IV 95 ML IV CONT (14:12)
[2024-10-26] MEDS: LORazepam INJ (*CRX) 2 MG/ML VIAL 1 MG IV PUSH (14:27)
[2024-10-26 20:00] VITALS: PULSE 120; RESP 24; O2SAT 77
[2024-10-26 22:00] VITALS: BP 83/49; PULSE 120; RESP 24; TEMP 36.2; O2SAT 77
--- NOTE | 2024-10-27 14:29 | PM.DDS ---
Discharge Summary Date and Time Date of : 10/27/24 Time of : 05:30 Provider Pronounced By: 2 RNs Name of First RN That Pronounced: Ranjit RN Name of Second RN That Pronounced: Dalia RN Probable Cause of Probable Cause of : Acute hypoxic respiratory failure secondary to aspiration pneumonia secondary to dysphagia secondary to vascular dementia Summary Hospital Course: This patient was admitted to the inpatient hospice service for symptom management. Medications were titrated to comfort. Mrs. Wilhelm peacefully with her daughter at bedside. Additional Data Confirmation of as documented by pronouncing clinician: Heart Tones and Breath Sounds Name of Provider Notified: Riaz Time Provider Notified: 06:19 Provider Requests Autopsy: No Family Requests Autopsy: No Extra Gang Supervisor Notified: Yes Date [facility] Notified of : 10/27/24 Time [facility] Notified of : 06:05
== END 2024-10-27 10:20 | disposition expired | DRG 951 ==
LOC: ANH2MED 12:45 → ANH3MEDSUR 16:07
PROVIDERS: Admitting Provider Internal Medicine; Visit Provider Internal Medicine
DX: Z51.5 Encounter for palliative care (principal); G93.41 Metabolic encephalopathy; J69.0 Pneumonitis due to inhalation of food and vomit; J96.01 Acute respiratory failure with hypoxia; I13.0 Hypertensive heart and chronic kidney disease with heart failure and stage 1 through stage 4 chronic kidney disease, or unspecified chronic kidney disease; D50.0 Iron deficiency anemia secondary to blood loss (chronic); F01.50 Vascular dementia, unspecified severity, without behavioral disturbance, psychotic disturbance, mood disturbance, and anxiety; F02.B0 Dementia in other diseases classified elsewhere, moderate, without behavioral disturbance, psychotic disturbance, mood disturbance, and anxiety; G30.1 Alzheimer's disease with late onset; G40.909 Epilepsy, unspecified, not intractable, without status epilepticus; I50.9 Heart failure, unspecified; K25.9 Gastric ulcer, unspecified as acute or chronic, without hemorrhage or perforation; R13.10 Dysphagia, unspecified; N18.30 Chronic kidney disease, stage 3 unspecified
CPT/HCPCS: A9270; J1596; J1953; J2060; J2270